=== PATIENT | male | born 1985 | race Caucasian/White ===

== ENCOUNTER 2016-07-15 14:36 | Emergency (ER) | payer BC, OTHER ==
[2016-07-15] MEDS ORDERED: SODIUM CHLORIDE 0.9% 1,000 ML IV STA (16:15)
[2016-07-15] MEDS ORDERED: MAG HYDROX/AL HYDROX/SIMETH 30 ML, HYOSCYAMINE ELIXIR 10 ML, CIMETIDINE HCL 300 MG PO STA ×3 (16:15)
[2016-07-15] MEDS ORDERED: ONDANSETRON 4 MG/2 ML VIAL IVP STA (16:15)
[2016-07-15] MEDS ORDERED: PANTOPRAZOLE 40 MG/10 ML VIAL IVP STA (16:15)
--- NOTE | 2016-07-15 16:41 | ED ---
Nausea/Vomiting/Diarrhea HPI - General Chief complaint: Nausea/Vomiting/Diarrhea Stated complaint: acid reflux/chest pain Time Seen by Provider: 07/15/16 16:08 Source: patient, RN notes reviewed Mode of arrival: ambulatory Limitations: no limitations - History of Present Illness Initial comments: 30-year-old male presents emergency Department with chief complaint of nausea vomiting heartburn, chest pain. Patient states that over the last day or so that he's had this pain does not seem to be worsened by eating. He has had approximately 5-6 episodes of emesis. Denies any coffee-ground emesis or hematemesis. Denies any fevers or chills. Denies any shortness of breath denies any muscular chest pain no cardiac history. Patient is diabetic and states he checked his blood sugar today was 336. Patient denies any dysuria, hematuria. Patient denies any change in bowel habits. He states he normally has some loose stools which has not changed. He has no history of abdominal surgeries. Patient states that he feels that he has heartburn has tried some Prevacid, Tums with minimal relief. - Related Data Home Medications Medication Instructions Recorded Confirmed Insulin Aspart (For Pump) [NovoLOG See Protocol SQ-PUMP CONTINUOUS 07/15/1606/26 (For Pump)] Previous Rx's Medication Instructions Recorded Omeprazole 40 mg PO DAILY #30 capsule. 07/15/16 Ondansetron Odt [Zofran Odt] 4 mg PO Q8HR PRN #10 tab 07/15/16 Allergies Allergy/AdvReac Type Severity Reaction Status Date / Time No Known Allergies Allergy Verified 07/15/16 16:21 Review of Systems ROS Statement: Those systems with pertinent positive or pertinent negative responses have been documented in the HPI. ROS Other: All systems not noted in ROS Statement are negative. Past Medical History Past Medical History: Diabetes Mellitus Additional Past Medical History / Comment(s): insulin pump History of Any Multi-Drug Resistant Organisms: None Reported Past Surgical History: Hernia Repair Past Psychological History: No Psychological Hx Reported Smoking Status: Current every day smoker Past Alcohol Use History: Heavy Past Drug Use History: None Reported General Exam Limitations: no limitations General appearance: alert, in no apparent distress Neck exam: Present: normal inspection. Absent: tenderness, meningismus, lymphadenopathy Respiratory exam: Present: normal lung sounds bilaterally. Absent: respiratory distress, wheezes, rales, rhonchi, stridor, chest wall tenderness Cardiovascular Exam: Present: regular rate, normal rhythm, normal heart sounds. Absent: systolic murmur, diastolic murmur, rubs, gallop, clicks GI/Abdominal exam: Present: soft, tenderness (Mild epigastric), normal bowel sounds. Absent: distended, guarding, rebound, rigid Course Vital Signs 07/15/16 07/15/16 15:01 18:22 Temperature 98.4 F 97.3 F L Pulse Rate 106 H 94 Respiratory 18 16 Rate Blood Pressure 181/64 136/83 O2 Sat by Pulse 98 97 Oximetry Medical Decision Making - Medical Decision Making 30-year-old male presents emergency Department for chest wall pain, mild abdominal pain nausea vomiting. Patient does have asked him positive and ketones though he is non-acidotic at this time. Patient has mild dehydration which she was hydrated here. Patient does feel improved after GI cocktail, Zofran. Patient most likely has gastritis secondary to dietary reasons. Patient started on omeprazole once daily and redischarged with Zofran at this time. Patient will recheck blood sugar at home and follow up with primary care physician. - Lab Data Result diagrams: 07/15/16 16:34 07/15/16 16:34 Lab Results 07/15/16 07/15/16 07/15/16 Range/Units 16:34 16:34 16:34 WBC 9.6 (3.8-10.6) k/uL RBC 5.15 (4.30-5.90) m/uL Hgb 15.9 (13.0-17.5) gm/dL Hct 44.9 (39.0-53.0) % MCV 87.2 (80.0-100.0) fL MCH 30.9 (25.0-35.0) pg MCHC 35.4 (31.0-37.0) g/dL RDW 13.1 (11.5-15.5) % Plt Count 162 (150-450) k/uL Neutrophils % 75 % Lymphocytes % 17 % Monocytes % 5 % Eosinophils % 2 % Basophils % 1 % Neutrophils # 7.2 (1.3-7.7) k/uL Lymphocytes # 1.6 (1.0-4.8) k/uL Monocytes # 0.5 (0-1.0) k/uL Eosinophils # 0.2 (0-0.7) k/uL Basophils # 0.1 (0-0.2) k/uL Sodium 133 L (137-145) mmol/L Potassium 4.1 (3.5-5.1) mmol/L Chloride 89 L (98-107) mmol/L Carbon Dioxide 33 H (22-30) mmol/L Anion Gap 11 mmol/L BUN 22 H (9-20) mg/dL Creatinine 1.07 (0.66-1.25) mg/dL Est GFR (MDRD) Af Amer >60 (>60 ml/min/1.73 sqM) Est GFR (MDRD) Non-Af >60 (>60 ml/min/1.73 sqM) Glucose 316 H (74-99) mg/dL Calcium 9.2 (8.4-10.2) mg/dL Total Bilirubin 2.5 H (0.2-1.3) mg/dL AST 23 (17-59) U/L ALT 25 (21-72) U/L Alkaline Phosphatase 109 (38-126) U/L Troponin I <0.012 (0.000-0.034) ng/mL Total Protein 6.8 (6.3-8.2) g/dL Albumin 4.0 (3.5-5.0) g/dL Amylase 47 (30-110) U/L Lipase 36 (23-300) U/L Urine Color Urine Appearance (Clear) Urine pH (5.0-8.0) Ur Specific [place] (1.001-1.035) Urine Protein (Negative) Urine Glucose (UA) (Negative) Urine Ketones (Negative) Urine Blood (Negative) Urine Nitrite (Negative) Urine Bilirubin (Negative) Urine Urobilinogen (<2.0) mg/dL Ur Leukocyte Esterase (Negative) Urine RBC (0-5) /hpf Urine WBC (0-5) /hpf Ur Squamous Epith Cells (0-4) /hpf Amorphous Sediment (None) /hpf Hyaline Casts (0-2) /lpf Urine Mucus (None) /hpf Acetone, Qual Positive (Negative) 07/15/16 Range/Units 17:37 WBC (3.8-10.6) k/uL RBC (4.30-5.90) m/uL Hgb (13.0-17.5) gm/dL Hct (39.0-53.0) % MCV (80.0-100.0) fL MCH (25.0-35.0) pg MCHC (31.0-37.0) g/dL RDW (11.5-15.5) % Plt Count (150-450) k/uL Neutrophils % % Lymphocytes % % Monocytes % % Eosinophils % % Basophils % % Neutrophils # (1.3-7.7) k/uL Lymphocytes # (1.0-4.8) k/uL Monocytes # (0-1.0) k/uL Eosinophils # (0-0.7) k/uL Basophils # (0-0.2) k/uL Sodium (137-145) mmol/L Potassium (3.5-5.1) mmol/L Chloride (98-107) mmol/L Carbon Dioxide (22-30) mmol/L Anion Gap mmol/L BUN (9-20) mg/dL Creatinine (0.66-1.25) mg/dL Est GFR (MDRD) Af Amer (>60 ml/min/1.73 sqM) Est GFR (MDRD) Non-Af (>60 ml/min/1.73 sqM) Glucose (74-99) mg/dL Calcium (8.4-10.2) mg/dL Total Bilirubin (0.2-1.3) mg/dL AST (17-59) U/L ALT (21-72) U/L Alkaline Phosphatase (38-126) U/L Troponin I (0.000-0.034) ng/mL Total Protein (6.3-8.2) g/dL Albumin (3.5-5.0) g/dL Amylase (30-110) U/L Lipase (23-300) U/L Urine Color Yellow Urine Appearance Clear (Clear) Urine pH 6.0 (5.0-8.0) Ur Specific [place] 1.017 (1.001-1.035) Urine Protein 2+ H (Negative) Urine Glucose (UA) 4+ H (Negative) Urine Ketones 2+ H (Negative) Urine Blood Small H (Negative) Urine Nitrite Negative (Negative) Urine Bilirubin Negative (Negative) Urine Urobilinogen 2.0 (<2.0) mg/dL Ur Leukocyte Esterase Negative (Negative) Urine RBC 1 (0-5) /hpf Urine WBC 4 (0-5) /hpf Ur Squamous Epith Cells <1 (0-4) /hpf Amorphous Sediment Rare H (None) /hpf Hyaline Casts 10 H (0-2) /lpf Urine Mucus Rare H (None) /hpf Acetone, Qual (Negative) 07/15/16 17:44 EKG performed at 17:39 normal sinus rhythm with a rate of 83 IL interval 144 QRS duration 86 QT/QTC 364/427 Disposition Clinical Impression: Dehydration, Gastritis Disposition: HOME SELF-CARE Condition: Stable Instructions: Acute Nausea and Vomiting (ED), Gastritis (ED) Additional Instructions: Please return to the Emergency Department if symptoms worsen or any other concerns. Prescriptions: Omeprazole 40 mg PO DAILY #30 capsule. Ondansetron Odt [Zofran Odt] 4 mg PO Q8HR PRN #10 tab PRN Reason: Nausea Referrals: Sahra Hurtado MD [Primary Care Provider] - 1-2 days Time of Disposition: 18:39
[2016-07-15 16:47] LABS: Basophils # (A) 0.1 k/uL (0-0.2); Basophils % (A) 1 %; CH 32.1; Eosinophils # (A) 0.2 k/uL (0-0.7); Eosinophils % (A) 2 %; HCT 44.9 % (39.0-53.0); HDW 3.04; HGB 15.9 gm/dL (13.0-17.5); Luc # (Auto) 0.11; Luc % (Auto) 1; Lymphocytes # (A) 1.6 k/uL (1.0-4.8); Lymphocytes % (A) 17 %; MCH 30.9 pg (25.0-35.0); MCHC 35.4 g/dL (31.0-37.0); MCV 87.2 fL (80.0-100.0); Mean Platelet Volume 8.4; Monocytes # (A) 0.5 k/uL (0-1.0); Monocytes % (A) 5 %; Neutrophils # (A) 7.2 k/uL (1.3-7.7); Neutrophils % (A) 75 %; RBC 5.15 m/uL (4.30-5.90); RDW 13.1 % (11.5-15.5); WBC 9.6 k/uL (3.8-10.6); WBC (Perox) 9.67
[2016-07-15 17:14] LABS: ALT 25 U/L (21-72); AST 23 U/L (17-59); Alkaline Phosphatase 109 U/L (38-126); Amylase 47 U/L (30-110); Anion Gap 11 mmol/L; Blood Urea Nitrogen 22 mg/dL (9-20); Calcium 9.2 mg/dL (8.4-10.2); Carbon Dioxide 33 mmol/L (22-30); Chloride 89 mmol/L (98-107); Glucose 316 mg/dL (74-99); Non-African American GFR(MDRD) >60 (>60 ml/min/1.73 sqM); Potassium 4.1 mmol/L (3.5-5.1); Sodium 133 mmol/L (137-145); Total Bilirubin 2.5 mg/dL (0.2-1.3); Total Protein 6.8 g/dL (6.3-8.2)
--- NOTE | 2016-07-15 17:19 | XR ---
EXAMINATION TYPE: XR chest 2V DATE OF EXAM: 07/15/2016 COMPARISON: NONE HISTORY: Chest pain TECHNIQUE: Frontal and lateral views of the chest are obtained. FINDINGS: Heart and mediastinum are normal. Lungs are clear. Diaphragm is normal. Bony thorax is int act. IMPRESSION: Normal chest
--- NOTE | 2016-07-15 17:20 | XR ---
EXAMINATION TYPE: XR KUB DATE OF EXAM: 07/15/2016 COMPARISON: NONE HISTORY: Chest pain TECHNIQUE: 2 views FINDINGS: Bowel gas pattern is normal. There is no sign of intestinal obstruction or pneumoperitoneum . Fecal pattern is normal. Lung bases are clear. There are no pathologic calcifications over the kidn eys. IMPRESSION: Nonacute abdomen.
[2016-07-15] MEDS ORDERED: SODIUM CHLORIDE 0.9% 1,000 ML IV ONE (17:41)
[2016-07-15 18:09] LABS: Amorphous Sediment,Urine Rare /hpf; Appearance,Urine Clear (Clear); Bilirubin,Urine Negative (Negative); Glucose,Urine (UA) 4+ (Negative); Leukocyte Esterase,Urine Negative (Negative); Mucus,Urine Rare /hpf; Nitrite,Urine Negative (Negative); Particle Count 1908; Protein,Urine 2+ (Negative); RBC,Urine 1 /hpf (0-5); Specific Gravity,Urine 1.017 (1.001-1.035); Squamous Epithelial Cell,Urine <1 /hpf (0-4); UA Billing (MACRO vs. MICRO) MICRO; WBC,Urine 4 /hpf (0-5)
[2016-07-15 18:10] LABS: Ketones,Urine 2+ (Negative)
--- NOTE | 2016-07-15 18:10 | US ---
EXAMINATION TYPE: US abdomen limited DATE OF EXAM: 07/15/2016 COMPARISON: NONE CLINICAL HISTORY: Pain. Reflux, chest pain, vomiting. EXAM MEASUREMENTS: Liver Length: 16.5 cm Gallbladder Wall: 0.2 cm CBD: 0.2 cm Right Kidney: 10.3 x 4.1 x 5.1 cm Pancreas: Limited visualization due to fluid filled stomach and peristalsing bowel. Visualized porti ons wnl Liver: wnl Gallbladder: wnl Evidence for sonographic Stahl's sign: No CBD: wnl as visualized, distal portion obscured by bowel gas Right Kidney: No hydronephrosis or masses seen IMPRESSION: Normal exam. No gallstones or dilated ducts.
[2016-07-15 18:23] VITALS: BP 136/83; PULSE 94; RESP 16; TEMP 97.3
== END 2016-07-15 18:54 | disposition home or self-care (01) ==
LOC: EC 14:36
DX: E86.0 Dehydration (principal); K29.70 Gastritis, unspecified, without bleeding; R07.89 Other chest pain; E11.9 Type 2 diabetes mellitus without complications; F17.200 Nicotine dependence, unspecified, uncomplicated; Z79.4 Long term (current) use of insulin
CPT/HCPCS: 36415; 93005; 80053; 82150; 82009; 83690; 84484; 85025; 81001; 71020; 74000; 76705; 99284; 96374; 96375; 96361 ×2; J2405; C9113

== ENCOUNTER 2016-09-24 17:48 | Observation (INO) | payer BC ==
[2016-09-24] MEDS ORDERED: SODIUM CHLORIDE 0.9% 2,000 ML IV STA (18:02)
[2016-09-24] MEDS ORDERED: METOCLOPRAMIDE 5 MG/ML 2 ML VIAL IVP STA (18:02)
--- NOTE | 2016-09-24 18:26 | ED ---
Nausea/Vomiting/Diarrhea HPI - General Chief complaint: Nausea/Vomiting/Diarrhea Stated complaint: Diabetic reaction (DKA) Time Seen by Provider: 09/24/16 18:02 Source: patient, RN notes reviewed Mode of arrival: ambulatory Limitations: no limitations - History of Present Illness Initial comments: This a 30-year-old male presents emergency Department with chief complaint of nausea vomiting denies not feeling well. Patient states that he started vomiting around 2 AM on Friday morning. Patient states that he has continue felt very rundown and sick feeling. Patient states his blood sugars have been variable. Patient states that he went to [facility] and sent over here for further wet ablation concerns for possible DKA. Patient is stable diabetic insulin pump. Patient states that he has had no fevers or chills. Patient states she has extreme dry mouth and feeling slightly dizzy. He denies any chest pain or shortness of breath. - Related Data Home Medications Medication Instructions Recorded Confirmed Insulin Aspart (For Pump) [NovoLOG See Protocol SQ-PUMP CONTINUOUS 07/15/16 (For Pump)] Omeprazole 40 mg PO [id number] 09/24/16 09/24/16 Previous Rx's Medication Instructions Recorded Ondansetron Odt [Zofran Odt] 4 mg PO Q8HR PRN #10 tab 07/15/16 Allergies Allergy/AdvReac Type Severity Reaction Status Date / Time No Known Allergies Allergy Verified 09/24/16 17:54 Review of Systems ROS Statement: Those systems with pertinent positive or pertinent negative responses have been documented in the HPI. ROS Other: All systems not noted in ROS Statement are negative. Past Medical History Past Medical History: Diabetes Mellitus Additional Past Medical History / Comment(s): insulin pump History of Any Multi-Drug Resistant Organisms: None Reported Past Surgical History: Hernia Repair Past Psychological History: No Psychological Hx Reported Smoking Status: Current every day smoker Past Alcohol Use History: Daily, Heavy Past Drug Use History: None Reported General Exam Limitations: no limitations General appearance: alert, in no apparent distress Head exam: Present: atraumatic, normocephalic, normal inspection Eye exam: Present: normal appearance, PERRL, EOMI. Absent: scleral icterus, conjunctival injection, periorbital swelling ENT exam: Present: normal exam, normal oropharynx, mucous membranes moist Neck exam: Present: normal inspection. Absent: tenderness, meningismus, lymphadenopathy Respiratory exam: Present: normal lung sounds bilaterally. Absent: respiratory distress, wheezes, rales, rhonchi, stridor Cardiovascular Exam: Present: normal rhythm, tachycardia, normal heart sounds. Absent: systolic murmur, diastolic murmur, rubs, gallop, clicks GI/Abdominal exam: Present: soft, normal bowel sounds. Absent: distended, tenderness, guarding, rebound, rigid Neurological exam: Present: alert, oriented X3, CN II-XII intact Skin exam: Present: warm, dry, intact, normal color. Absent: rash Course Vital Signs 09/24/16 17:50 Temperature 98.3 F Pulse Rate 103 H Respiratory 18 Rate Blood Pressure 108/71 O2 Sat by Pulse 97 Oximetry Medical Decision Making - Lab Data Result diagrams: 09/24/16 18:34 09/24/16 18:34 Lab Results 09/24/16 09/24/16 09/24/16 Range/Units 18:34 18:34 18:34 WBC 9.3 (3.8-10.6) k/uL RBC 4.74 (4.30-5.90) m/uL Hgb 14.7 (13.0-17.5) gm/dL Hct 39.1 (39.0-53.0) % MCV 82.5 (80.0-100.0) fL MCH 31.0 (25.0-35.0) pg MCHC 37.6 H (31.0-37.0) g/dL RDW 12.7 (11.5-15.5) % Plt Count 157 (150-450) k/uL Neutrophils % 70 % Lymphocytes % 21 % Monocytes % 5 % Eosinophils % 2 % Basophils % 0 % Neutrophils # 6.5 (1.3-7.7) k/uL Lymphocytes # 1.9 (1.0-4.8) k/uL Monocytes # 0.5 (0-1.0) k/uL Eosinophils # 0.2 (0-0.7) k/uL Basophils # 0.0 (0-0.2) k/uL Hyperchromasia Slight VBG pH (7.31-7.41) VBG pCO2 (37-51) mmHg VBG HCO3 (24-28) mmol/L Sodium 134 L (137-145) mmol/L Potassium 3.2 L (3.5-5.1) mmol/L Chloride 88 L (98-107) mmol/L Carbon Dioxide 34 H (22-30) mmol/L Anion Gap 12 mmol/L BUN 26 H (9-20) mg/dL Creatinine 1.10 (0.66-1.25) mg/dL Est GFR (MDRD) Af Amer >60 (>60 ml/min/1.73 sqM) Est GFR (MDRD) Non-Af >60 (>60 ml/min/1.73 sqM) Glucose 213 H (74-99) mg/dL Calcium 8.8 (8.4-10.2) mg/dL Total Bilirubin 1.0 (0.2-1.3) mg/dL AST 34 (17-59) U/L ALT 36 (21-72) U/L Alkaline Phosphatase 114 (38-126) U/L Total Protein 6.3 (6.3-8.2) g/dL Albumin 3.6 (3.5-5.0) g/dL Amylase 39 (30-110) U/L Lipase 33 (23-300) U/L Urine Color Yellow Urine Appearance Clear (Clear) Urine pH 6.5 (5.0-8.0) Ur Specific [place] 1.016 (1.001-1.035) Urine Protein 4+ H (Negative) Urine Glucose (UA) 4+ H (Negative) Urine Ketones 3+ H (Negative) Urine Blood Moderate H (Negative) Urine Nitrite Negative (Negative) Urine Bilirubin 1+ H (Negative) Urine Urobilinogen 2.0 (<2.0) mg/dL Ur Leukocyte Esterase Negative (Negative) Urine RBC 5 (0-5) /hpf Urine WBC 3 (0-5) /hpf Hyaline Casts 17 H (0-2) /lpf Urine Mucus Rare H (None) /hpf Urine Sperm Rare (None) /hpf Acetone, Qual Positive (Negative) 09/24/16 Range/Units 19:00 WBC (3.8-10.6) k/uL RBC (4.30-5.90) m/uL Hgb (13.0-17.5) gm/dL Hct (39.0-53.0) % MCV (80.0-100.0) fL MCH (25.0-35.0) pg MCHC (31.0-37.0) g/dL RDW (11.5-15.5) % Plt Count (150-450) k/uL Neutrophils % % Lymphocytes % % Monocytes % % Eosinophils % % Basophils % % Neutrophils # (1.3-7.7) k/uL Lymphocytes # (1.0-4.8) k/uL Monocytes # (0-1.0) k/uL Eosinophils # (0-0.7) k/uL Basophils # (0-0.2) k/uL Hyperchromasia VBG pH 7.65 H* (7.31-7.41) VBG pCO2 27 L (37-51) mmHg VBG HCO3 30 H (24-28) mmol/L Sodium (137-145) mmol/L Potassium (3.5-5.1) mmol/L Chloride (98-107) mmol/L Carbon Dioxide (22-30) mmol/L Anion Gap mmol/L BUN (9-20) mg/dL Creatinine (0.66-1.25) mg/dL Est GFR (MDRD) Af Amer (>60 ml/min/1.73 sqM) Est GFR (MDRD) Non-Af (>60 ml/min/1.73 sqM) Glucose (74-99) mg/dL Calcium (8.4-10.2) mg/dL Total Bilirubin (0.2-1.3) mg/dL AST (17-59) U/L ALT (21-72) U/L Alkaline Phosphatase (38-126) U/L Total Protein (6.3-8.2) g/dL Albumin (3.5-5.0) g/dL Amylase (30-110) U/L Lipase (23-300) U/L Urine Color Urine Appearance (Clear) Urine pH (5.0-8.0) Ur Specific [place] (1.001-1.035) Urine Protein (Negative) Urine Glucose (UA) (Negative) Urine Ketones (Negative) Urine Blood (Negative) Urine Nitrite (Negative) Urine Bilirubin (Negative) Urine Urobilinogen (<2.0) mg/dL Ur Leukocyte Esterase (Negative) Urine RBC (0-5) /hpf Urine WBC (0-5) /hpf Hyaline Casts (0-2) /lpf Urine Mucus (None) /hpf Urine Sperm (None) /hpf Acetone, Qual (Negative) Disposition Clinical Impression: Metabolic alkalosis, Nausea & vomiting, Hypokalemia, Labile blood glucose Disposition: ADMITTED IP TO THIS HOSP Condition: Fair Referrals: Sahra Hurtado MD [Primary Care Provider] - 1-2 days
[2016-09-24 18:51] LABS: Appearance,Urine Clear (Clear); Bilirubin,Urine 1+ (Negative); Glucose,Urine (UA) 4+ (Negative); Leukocyte Esterase,Urine Negative (Negative); Mucus,Urine Rare /hpf; Nitrite,Urine Negative (Negative); PH, Urine 6.5 (5.0-8.0); Particle Count 3631; Protein,Urine 4+ (Negative); RBC,Urine 5 /hpf (0-5); Specific Gravity,Urine 1.016 (1.001-1.035); Sperm,Urine Rare /hpf; UA Billing (MACRO vs. MICRO) MICRO; WBC,Urine 3 /hpf (0-5)
[2016-09-24 18:52] LABS: Basophils % (A) 0 %; CH 31.4; CHCM 38.1; Eosinophils # (A) 0.2 k/uL (0-0.7); Eosinophils % (A) 2 %; HCT 39.1 % (39.0-53.0); HDW 3.06; HGB 14.7 gm/dL (13.0-17.5); Hyperchromasia Slight; Luc # (Auto) 0.16; Luc % (Auto) 2; Lymphocytes # (A) 1.9 k/uL (1.0-4.8); Lymphocytes % (A) 21 %; MCV 82.5 fL (80.0-100.0); Mean Platelet Volume 8.4; Monocytes # (A) 0.5 k/uL (0-1.0); Monocytes % (A) 5 %; Neutrophils # (A) 6.5 k/uL (1.3-7.7); Neutrophils % (A) 70 %; RBC 4.74 m/uL (4.30-5.90); RDW 12.7 % (11.5-15.5); WBC 9.3 k/uL (3.8-10.6); WBC (Perox) 9.45
[2016-09-24 18:54] LABS: MCHC 37.6 g/dL (31.0-37.0)
[2016-09-24 19:01] LABS: Ketones,Urine 3+ (Negative)
[2016-09-24 19:06] LABS: ALT 36 U/L (21-72); AST 34 U/L (17-59); Alkaline Phosphatase 114 U/L (38-126); Amylase 39 U/L (30-110); Anion Gap 12 mmol/L; Blood Urea Nitrogen 26 mg/dL (9-20); Calcium 8.8 mg/dL (8.4-10.2); Carbon Dioxide 34 mmol/L (22-30); Chloride 88 mmol/L (98-107); Glucose 213 mg/dL (74-99); Non-African American GFR(MDRD) >60 (>60 ml/min/1.73 sqM); Potassium 3.2 mmol/L (3.5-5.1); Sodium 134 mmol/L (137-145); Total Protein 6.3 g/dL (6.3-8.2)
[2016-09-24 19:24] LABS: VBG PH 7.65 (7.31-7.41)
[2016-09-24] MEDS ORDERED: POTASSIUM CHLORIDE ER 20 MEQ TAB.ER PO STA (19:53)
[2016-09-24] MEDS ORDERED: ONDANSETRON 4 MG/2 ML VIAL IVP PRN (19:54)
[2016-09-24] MEDS ORDERED: NALOXONE 0.4 MG/ML 1 ML VIAL IV PRN (19:54)
[2016-09-24 20:21] LABS: Acetaminophen <10.0 ug/mL; Salicylate <1.0 mg/dL
[2016-09-24] MEDS: SODIUM CHLORIDE 0.9% 1,000 ML IV SCH (21:05)
[2016-09-24 21:44] LABS: Glucose,Whole Blood 169 mg/dL (75-99)
[2016-09-24 22:15] LABS: Hemoglobin A1C 10.3 % (4.2-6.1)
[2016-09-25] MEDS: INSULIN LISPRO (humaLOG) 300 UNIT/3 ML VIAL SQ SCH ×3 (00:17→12:53)
[2016-09-25] MEDS ORDERED: SODIUM CHLORIDE 0.65% NASAL SPRAY 44 ML BTL NASAL PRN (01:03)
[2016-09-25] MEDS: SODIUM CHLORIDE 0.9% 1,000 ML IV SCH (06:11)
[2016-09-25 07:29] LABS: Glucose,Whole Blood 113 mg/dL (75-99)
[2016-09-25 07:54] VITALS: BP 124/68; PULSE 98; RESP 16; TEMP 96.7
[2016-09-25 11:04] VITALS: BMI 17.2
[2016-09-25 12:01] LABS: Glucose,Whole Blood 144 mg/dL (75-99)
[2016-09-25 12:33] LABS: ALT 38 U/L (21-72); AST 35 U/L (17-59); Alkaline Phosphatase 85 U/L (38-126); Anion Gap 8 mmol/L; Blood Urea Nitrogen 14 mg/dL (9-20); Calcium 8.6 mg/dL (8.4-10.2); Carbon Dioxide 32 mmol/L (22-30); Chloride 99 mmol/L (98-107); Glucose 147 mg/dL (74-99); Non-African American GFR(MDRD) >60 (>60 ml/min/1.73 sqM); Potassium 3.4 mmol/L (3.5-5.1); Sodium 139 mmol/L (137-145); Total Bilirubin 0.9 mg/dL (0.2-1.3); Total Protein 5.4 g/dL (6.3-8.2)
[2016-09-25] MEDS ORDERED: POTASSIUM CHLORIDE ER 20 MEQ TAB.ER PO STA (13:28)
--- NOTE | 2016-09-25 18:23 | HP ---
DATE OF ADMISSION: 09/25/16 HISTORY AND PHYSICAL/DISCHARGE SUMMARY CHIEF COMPLAINT: Nausea and vomiting. HISTORY OF PRESENT ILLNESS: This 30-year-old gentleman with past medical history of multiple medical problems including diabetes mellitus Type 1, history of insulin pump, history of nicotine dependence being followed by no primary care physician in the outpatient setting was complaining of vomiting. The patient presented. The patient had some nausea also. The patient presented to urgent care center and DKA was suspected. The patient was sent to [facility] for further evaluation and treatment. There is no history of any fever, rigors or chills. No history of headache, loss of consciousness or seizures. Venous blood gases showed actually ABG. pH 7.6. Sodium 130, potassium 3.2, CO2 12 and the urine ketones were positive. CO2 34, anion gap 12. Past medical history of diabetes Type 1 on insulin pump. Mediations prior to admission include: Insulin pump. ALLERGIES: None. FAMILY HISTORY: No history of heart disease or strokes in the family. SOCIAL HISTORY: History of occasional alcohol intake. History of smoking. REVIEW OF SYSTEMS: HEENT: No diminished vision. No diminished hearing. Cardiovascular system: No angina or palpitations. Respiratory: No cough, hemoptysis. GI: As mentioned earlier. : No dysuria. Nervous system: No numbness, weakness. Allergy/Immunology: No asthma or hayfever. Musculoskeletal: As mentioned earlier. Hematology/oncology: No history of anemia. Endocrine: As mentioned earlier. Constitutional: As mentioned earlier. Dermatology: Negative. Rheumatology: Negative. Psychiatry: As mentioned earlier. PHYSICAL EXAMINATION: The patient is alert, oriented times three. Pulse 90. Blood pressure 100/68. Respiratory rate 16, temperature 96.7. Pulse ox 99% on room air. HEENT: Conjunctivae normal. NECK: No JVD. Cardiovascular: S1, S2. Respiratory: Breath sounds diminished at the bases. A few scattered rhonchi and no crackles. Abdomen is soft, nontender. No mass palpable. Legs: No edema. No swelling. Nervous system: Higher functions as mentioned earlier. Moves all four limbs. No focal deficits. Lymphatics: No lymph nodes palpable in the neck, axilla or groin. Skin: No ulcer, rash or bleeding. LABS: CBC within normal limits. Sodium 134, potassium 3.2. Other labs noted. FINAL DIAGNOSES: 1. Vomiting, possible acute gastritis. 2. Metabolic alkalosis secondary to vomiting. 3. Diabetic ketoacidosis unlikely. 4. Diabetes, Type 1. 5. History of nicotine dependence. 6. History of ETOH. RECOMMENDATIONS AND DISCUSSION: In this 30 -year-old gentleman who presented with multiple complex medical issues, we will monitor the patient closely. Continue the current medications. Continue symptomatic treatment. The patient improved significantly with IV fluids. I recommend the patient be discharged with the continued home dose of insulin pump and continue to monitor. Repeat labs with Dr. Hurtado in the outpatient setting. See orders for further details. Prognosis guarded. MTDD
== END 2016-09-25 14:11 | disposition home or self-care (01) ==
LOC: EC 17:48 → 4MS4W 20:55 → INTOOBSV 20:55
PROVIDERS: ADMIT Hospitalist; ATTEND Hospitalist
DX: R11.2 Nausea with vomiting, unspecified (principal); E87.3 Alkalosis; E10.9 Type 1 diabetes mellitus without complications; Z96.41 Presence of insulin pump (external) (internal); Z79.4 Long term (current) use of insulin; Z79.899 Other long term (current) drug therapy; E87.6 Hypokalemia; F17.200 Nicotine dependence, unspecified, uncomplicated
CPT/HCPCS: 99284 ×2; 96374 ×2; 96361 ×3; 36415; 82436; 80053 ×2; 82088; 82150; 83036; 82803; 84244; 82009; 83690; 85025; 81001; 80306; 83520 ×2; G0378 ×2; J2765

== ENCOUNTER → 2017-05-02 | Outpatient (CLI) | payer MEDICAID ==
[2017-05-02 09:52] LABS: Albumin 2.7 g/dL (3.5-5.0); Calcium 8.4 mg/dL (8.4-10.2); Total Bilirubin 0.9 mg/dL (0.2-1.3); Total Protein 5.3 g/dL (6.3-8.2)
== END | disposition home or self-care (01) ==
LOC: LABWHC1 09:18
PROVIDERS: ATTEND Internal Medicine Endocrinology, Diabetes & Metabolism
DX: E10.65 Type 1 diabetes mellitus with hyperglycemia (principal)
CPT/HCPCS: 36415; 80053; 80061; 82043; 82570

== ENCOUNTER 2017-05-28 17:12 | Observation (INO) | payer MEDICAID ==
[2017-05-28 17:55] LABS: Glucose,Whole Blood 112 mg/dL (75-99)
[2017-05-28] MEDS ORDERED: SODIUM CHLORIDE 0.9% 500 ML IV ONE (19:46)
--- NOTE | 2017-05-28 19:52 | ED ---
Headache HPI - General Chief Complaint: Headache Stated Complaint: POSS CVA, DIZZINESS, ARM AND FACE NUMBNESS Time Seen by Provider: 05/28/17 19:30 Mode of arrival: ambulatory Limitations: no limitations - History of Present Illness Initial Comments: 31-year-old male patient presents to the emergency department today with complaints of left eye pressure, right-sided facial numbness and right arm numbness. Patient states that over the last couple of months he has been evaluated for left sided a retinal bleed. States he did have laser surgery which appeared the bleeding but he continued to have problems. Patient states he is evaluated by beam saw operator Dr. Renteria in [place], she believes the eye symptoms and pain is more neurological rather than ophthalmic. Patient states that he does have an MRI scheduled for next month however had onset of the facial numbness and arm numbness today so presented here for further evaluation. Patient states that the numbness lasted approximately 30 minutes but did resolve. States he is still having some mild blurred vision to the left eye and pressure in the left eye. States that he has a mild headache as well. With these symptoms patient has been experiencing dizziness and is being treated for vertigo by his primary care physician. Patient has a past medical history significant for type 1 diabetes and renal insufficiency. Patient denies any recent rash, fever, chills, shortness breath, chest pain, abdominal pain, nausea, vomiting, diarrhea, constipation, back pain, weakness, hematuria, dysuria, urinary urgency, urinary frequency, or any other complaints. - Related Data Home Medications Medication Instructions Recorded Confirmed Insulin Aspart [NovoLOG See Protocol SQ AC-TID 01/28/17 05/28/17 (formulary)] Insulin Glargine,Hum.rec.anlog 8 units SQ HS 01/28/17 05/28/17 [Toujeo Solostar] Insulin Aspart [NovoLOG 1 dose SQ AC-TID 05/28/17 05/28/17 (formulary)] Meclizine [Antivert] 25 mg PO HS 05/28/17 05/28/17 Allergies Allergy/AdvReac Type Severity Reaction Status Date / Time No Known Allergies Allergy Verified 05/28/17 21:52 Review of Systems ROS Statement: Those systems with pertinent positive or pertinent negative responses have been documented in the HPI. ROS Other: All systems not noted in ROS Statement are negative. Past Medical History Past Medical History: Diabetes Mellitus Additional Past Medical History / Comment(s): IDDM type I, DKA History of Any Multi-Drug Resistant Organisms: None Reported Past Surgical History: Hernia Repair Additional Past Surgical History / Comment(s): Inguinal hernia repair Past Anesthesia/Blood Transfusion Reactions: No Reported Reaction Past Psychological History: No Psychological Hx Reported Smoking Status: Current every day smoker Past Alcohol Use History: None Reported Past Drug Use History: None Reported - Past Family History Father Family Medical History: No Reported History Additional Family Medical History / Comment(s): Father is healthy Mother Family Medical History: No Reported History Additional Family Medical History / Comment(s): Mother is healthy. General Exam Limitations: no limitations General appearance: alert, in no apparent distress, other (This is a well- developed, well-nourished adult female patient in no acute distress. Vital signs upon presentation are temperature 98.1F, pulse 87, respirations 20, blood pressure 116/77, pulse ox 100% on room air.) Eye exam: Present: normal appearance, PERRL, EOMI. Absent: scleral icterus, conjunctival injection, periorbital swelling ENT exam: Present: normal exam, normal oropharynx, mucous membranes moist Respiratory exam: Present: normal lung sounds bilaterally. Absent: respiratory distress, wheezes, rales, rhonchi, stridor Cardiovascular Exam: Present: regular rate, normal rhythm, normal heart sounds. Absent: systolic murmur, diastolic murmur, rubs, gallop, clicks Extremities exam: Present: normal inspection, full ROM, normal capillary refill , other (Skin to the bilateral production is pink, warm, and dry. Cap refills less than 3 seconds. Radial pulses are 2+ and equal bilateral.). Absent: tenderness, pedal edema, joint swelling, calf tenderness Neurological exam: Present: alert, oriented X3, CN II-XII intact Expanded Speech: Present: fluid speech Cranial nerves: EOM's Intact: Normal, Tongue Deviation: Normal, Nystagmus: Normal, Facial Sensation: Normal, Facial Palsy with Forehead Movement: Normal Motor strength exam: RUE: 5, LUE: 5, RLE: 5, LLE: 5 Eye Response: (4) open spontaneously Motor Response: (6) obeys commands Verbal Response: (5) oriented [place] Total: 15 Psychiatric exam: Present: normal affect, normal mood Skin exam: Present: warm, dry, intact, normal color. Absent: rash Course Vital Signs 05/28/17 05/28/17 05/28/17 17:38 21:29 23:25 Temperature 98.1 F Pulse Rate 87 97 87 Respiratory 20 18 18 Rate Blood Pressure 116/77 190/94 161/99 O2 Sat by Pulse 100 99 98 Oximetry 05/29/17 00:30 Temperature 98.8 F Pulse Rate 95 Respiratory 18 Rate Blood Pressure 163/100 O2 Sat by Pulse 98 Oximetry Medical Decision Making - Medical Decision Making 31-year-old male patient presents to the emergency department today for complaints of headache, left eye blurriness, right-sided facial numbness and right arm numbness. Physical examination was relatively unremarkable. Patient was neurologically intact. Numbness had resolved by time of presentation. Labs are performed and did show a hemoglobin of 10.3, sodium 136, BUN 34, creatinine 1.73. Patient does have a history of diabetes and renal insufficiency. CT of the brain was performed and did show a 1 cm area of low attenuation in the left cerebellum which could possibly be an intraparenchymal lesion or infarct of indeterminate age. I also did show possible left-sided mastoiditis, patient denies any ear pain, difficulty hearing, or mastoid tenderness. It is felt that this is not related to an acute mastoiditis. I did discuss the case with Dr. Vázquez who would like patient admitted to the hospital for neurological evaluation. - Lab Data Result diagrams: 05/28/17 19:55 05/28/17 19:55 Lab Results 05/28/17 05/28/17 05/28/17 Range/Units 17:46 19:55 19:55 WBC 8.5 (3.8-10.6) k/uL RBC 3.44 L (4.30-5.90) m/uL Hgb 10.3 L (13.0-17.5) gm/dL Hct 28.0 L (39.0-53.0) % MCV 81.4 (80.0-100.0) fL MCH 29.8 (25.0-35.0) pg MCHC 36.6 (31.0-37.0) g/dL RDW 13.5 (11.5-15.5) % Plt Count 138 L (150-450) k/uL Neutrophils % 77 % Lymphocytes % 15 % Monocytes % 3 % Eosinophils % 5 % Basophils % 0 % Neutrophils # 6.5 (1.3-7.7) k/uL Lymphocytes # 1.2 (1.0-4.8) k/uL Monocytes # 0.3 (0-1.0) k/uL Eosinophils # 0.4 (0-0.7) k/uL Basophils # 0.0 (0-0.2) k/uL Hyperchromasia Slight Sodium 136 L (137-145) mmol/L Potassium 4.5 (3.5-5.1) mmol/L Chloride 98 (98-107) mmol/L Carbon Dioxide 29 (22-30) mmol/L Anion Gap 9 mmol/L BUN 34 H (9-20) mg/dL Creatinine 1.73 H (0.66-1.25) mg/dL Est GFR (CKD-EPI)AfAm 60 (>60 ml/min/1.73 sqM) Est GFR (CKD-EPI)NonAf 52 (>60 ml/min/1.73 sqM) Glucose 165 H (74-99) mg/dL POC Glucose (mg/dL) 112 H (75-99) mg/dL POC Glu Lab Intern ID [facility] Calcium 9.2 (8.4-10.2) mg/dL Total Bilirubin 0.5 (0.2-1.3) mg/dL AST 43 (17-59) U/L ALT 45 (21-72) U/L Alkaline Phosphatase 128 H (38-126) U/L Total Protein 5.9 L (6.3-8.2) g/dL Albumin 3.2 L (3.5-5.0) g/dL - EKG Data -: EKG Interpreted by Ok EKG Comments: EKG obtained at 1748 shows normal sinus rhythm with a ventricular rate of 85,. Interval 136, QRS duration 82, QT 374, QTC 445. No evidence of ST elevation or depression. - Radiology Data Radiology results: report reviewed, image reviewed CT of the head is performed without contrast. Report was reviewed in its entirety. Impression by Dr. Weiner shows no acute intracranial hemorrhage or midline shift. Acute on chronic paranasal sinus disease is seen as detailed above. Nonspecific roughly 1 cm area of vague low attenuation the left cerebellum, differential includes intraparenchymal lesion as well as infarct of indeterminate age. Consider contrast enhanced MRI follow-up to further evaluate it does not really correlate with the patient stated symptoms. Other etiologies are not excluded. Possible left-sided mastoiditis, correlate clinically. Disposition Clinical Impression: Numbness on right side, Brain lesion, Blurred vision, left eye Disposition: ADMITTED IP TO THIS [facility] Condition: Serious Is patient prescribed a controlled substance at discharge?: No Decision to Admit Reason: Admit from EC Decision Date: 05/28/17 Decision Time: 21:34
[2017-05-28 20:16] LABS: Albumin 3.2 g/dL (3.5-5.0); Calcium 9.2 mg/dL (8.4-10.2); Potassium 4.5 mmol/L (3.5-5.1); Total Bilirubin 0.5 mg/dL (0.2-1.3); Total Protein 5.9 g/dL (6.3-8.2)
[2017-05-28 20:23] LABS: Basophils % (A) 0 %; Eosinophils # (A) 0.4 k/uL (0-0.7); Eosinophils % (A) 5 %; HGB 10.3 gm/dL (13.0-17.5); Hyperchromasia Slight; Lymphocytes # (A) 1.2 k/uL (1.0-4.8); Lymphocytes % (A) 15 %; MCH 29.8 pg (25.0-35.0); MCHC 36.6 g/dL (31.0-37.0); MCV 81.4 fL (80.0-100.0); Mean Platelet Volume 8.8; Monocytes # (A) 0.3 k/uL (0-1.0); Monocytes % (A) 3 %; Neutrophils # (A) 6.5 k/uL (1.3-7.7); Neutrophils % (A) 77 %; Platelet Count 138 k/uL (150-450); RBC 3.44 m/uL (4.30-5.90); RDW 13.5 % (11.5-15.5); WBC 8.5 k/uL (3.8-10.6)
--- NOTE | 2017-05-28 20:30 | CT ---
EXAMINATION TYPE: CT brain wo con DATE OF EXAM: 05/28/2017 COMPARISON: NONE HISTORY: DIZZINESS WITH LEFT SIDE FACIAL AND ARM NUMBNESS CT DLP: 1036 mGycm. Automated Exposure Control for Dose Reduction was Utilized. TECHNIQUE: CT scan of the head is performed without contrast. FINDINGS: There is no acute intracranial hemorrhage, mass effect, or midline shift identified. The ventricles and sulci are within normal limits in size. There is asymmetric vague area of low attenu ation left cerebellum axial image 10 otherwise lee-white matter differentiation is fairly well-maint ained. The globes are intact bilaterally. There is patchy opacification in the left frontal sinus. Th ere is hypoplastic right frontal sinus. There is patchy opacification ethmoid sinuses bilaterally. Th ere is some lobulated mucosal thickening in the bilateral maxillary sinuses. There is lobulated mucos al thickening anteriorly in right sphenoid sinus. There is small mucous retention cyst or polyp anter iorly in left sphenoid sinus. Patchy opacification left mastoid air cells is present. IMPRESSION: No acute intracranial hemorrhage or midline shift is seen. Acute on chronic paranasal si nus disease is seen as detailed above. Nonspecific roughly 1 cm area of vague low-attenuation left ce rebellum, differential includes intraparenchymal lesion as well as infarct indeterminate age. Conside r contrast-enhanced MRI follow-up to further evaluate as does not really correlate with patient's sta robi symptoms. Other etiologies are not excluded. Possible left-sided mastoiditis, correlate clinicall y.
[2017-05-28] MEDS ORDERED: NALOXONE 0.4 MG/ML 1 ML VIAL IV PRN (21:29)
[2017-05-28] MEDS ORDERED: INSULIN ASPART 100 UNIT/ML 1 ML 10 ML VIAL SQ STA (22:20)
[2017-05-28] MEDS ORDERED: INSULIN DETEMIR 100 UNIT/ML 10 ML VIAL SQ STA (22:23)
[2017-05-28 22:29] LABS: Glucose,Whole Blood 207 mg/dL (75-99)
[2017-05-29 02:27] VITALS: BMI 18.5
[2017-05-29 05:55] LABS: Glucose,Whole Blood 289 mg/dL (75-99)
[2017-05-29] MEDS: INSULIN ASPART 100 UNIT/ML 1 ML 10 ML VIAL SQ SCH ×5 (09:28→20:53)
[2017-05-29 12:02] LABS: Glucose,Whole Blood 211 mg/dL (75-99)
[2017-05-29] MEDS ORDERED: INSULIN ASPART 100 UNIT/ML 1 ML 10 ML VIAL SQ SCH (12:30)
--- NOTE | 2017-05-29 14:52 | MR ---
EXAMINATION TYPE: MR brain wo con DATE OF EXAM: 05/29/2017 2:32 PM COMPARISON: NONE HISTORY: cerebellar lesion Multiplanar and multispin-echo imaging of the brain was performed . The ventricles, basal cisterns and sulci overlying the cerebral convexities are within normal limits. There is no evidence for midline shift or mass effect. Acute intracranial hemorrhage or extra-axial collection is not evident. There are a few scattered nonspecific white matter foci of increased signal noted to small to appropr iately characterize. No acute edema is identified. Left-sided mastoiditis as well as chronic and acute paranasal sinusitis. IMPRESSION: 1. Nonspecific white matter changes. 2. No evidence for cerebellar lesion on this noncontrast study. 3. Left-sided mastoiditis as well as chronic and acute paranasal sinusitis.
[2017-05-29 16:32] LABS: Hemoglobin A1C 6.2 % (4.0-6.0)
[2017-05-29 16:46] LABS: Glucose,Whole Blood 207 mg/dL (75-99)
--- NOTE | 2017-05-29 19:55 | CONS ---
CONSULTATION DATE OF CONSULTATION: 05/29/2017 CHIEF COMPLAINT: Numbness and eye pain. HISTORY OF PRESENT ILLNESS: Mr. Hernandez is a pleasant 31-year-old, male who is being evaluated by the neurology service per the request of Dr. Vázquez for the above-mentioned complaints. The patient states that over the past 2 days, he has been having episodes of eye pain and numbness. Two days ago, he developed pain in his left eye along with some numbness in his right upper extremity. The eye pain lasted almost all day and the numbness lasted approximately 10 minutes. His symptoms resolved that night regarding the eye pain. Yesterday he developed similar eye pain involving the left eye and also noticed numbness in his right face. Again, those symptoms lasted a couple of hours and resolved spontaneously. In the emergency room, a CT scan of the brain was done which showed a questionable hypoattenuation involving the left cerebellum measuring approximately 1 cm. His CBC showed anemia with a hemoglobin of 10.3 and hematocrit of 28%. His comprehensive metabolic profile showed renal insufficiency with a BUN of 34 and creatinine of 1.73. The patient was told a few months ago that his renal function is abnormal. He has a long-standing history of diabetes that had not been well controlled until the past couple of months. He states that his hemoglobin A1c 3 months ago was 11.4. More recently, his hemoglobin A1c was 5.9, according to him. The patient was admitted for further workup and management. An MRI of the brain was just completed prior to my evaluation. The radiology report is still pending, but I did review the images, which showed no acute findings. Nonspecific white matter changes were seen. The patient denies any symptoms at the time of my evaluation. He has been ambulating with no difficulties. He does inform me that over the past couple of weeks, he has been having episodes of dizziness which he describes as an off-balance sensation that comes and goes. He denies any headache. PAST MEDICAL HISTORY: 1. Diabetes. 2. Chronic renal insufficiency. 3. History of hernia repair. SOCIAL HISTORY: The patient is a current everyday smoker. He denies any alcohol or drug use. FAMILY HISTORY: Noncontributory. HOME MEDICATIONS: Reviewed in the chart. ALLERGIES: NO KNOWN DRUG ALLERGIES. REVIEW OF SYSTEMS: CONSTITUTIONAL: Negative. EYES: As mentioned above. ENT: Negative. CARDIOVASCULAR: Negative. RESPIRATORY: Negative. NEUROLOGICAL: As mentioned above. GASTROINTESTINAL: Negative. GENITOURINARY: As mentioned above. ENDOCRINE: As mentioned above. PSYCHIATRIC: Negative. DERMATOLOGICAL: Negative. PHYSICAL EXAMINATION: Vital signs show a temperature of 98.4, pulse 92, respiration 14, blood pressure 141/86. GENERAL APPEARANCE: The patient is a thin male who appears to be in no acute distress. HEENT: Normocephalic, atraumatic. No facial asymmetry is seen. Extraocular muscles are intact. NECK: Supple with no masses felt. CARDIOVASCULAR: Regular rate and rhythm. ABDOMEN: Nontender, nondistended. Extremities showed no edema or clubbing. NEUROLOGICAL EXAMINATION: The patient is alert, aware and oriented x3. Speech and language are normal. Strength is full in all 4 extremities. Sensory exam was normal to light touch in all 4 extremities. No tremors or seizure-like activity is seen. No pronator drift is noticed. Dbpqhh-lqcu-xteqis testing showed no dysmetria. No facial asymmetry is seen on cranial nerve testing. IMPRESSION: 1. Recurrent numbness. 2. Nonspecific white matter changes on MRI of the brain. 3. Left eye pain. 4. Diabetes. 5. Tobacco dependence. RECOMMENDATION: The patient's MRI of the brain images were reviewed by me. The radiological report is still pending. I did not see any acute findings and no abnormalities were noticed in the cerebellar region. Nonspecific white matter changes were seen. I will wait for the official radiological report. The patient does have a long-standing history of uncontrolled diabetes, as mentioned above. He was found to have renal insufficiency, which is likely due to his diabetic history. I do recommend a nephrology consultation. Regarding his white matter changes, I will consider performing a lumbar puncture for CSF workup in the outpatient clinic. The patient will also need an ophthalmological evaluation, given his atypical recurrent eye pain. I do recommend anti-platelet therapy with aspirin 81 mg daily. I will order a carotid Doppler, EEG, fasting lipid panel and serum homocystine level. The patient was counseled on tobacco cessation. Continue the rest of your current workup and management. I will continue to follow with you. Further recommendations to follow. Thank you for allowing me to participate in the care of your patient. If you have any questions, please feel free to contact me. MMODL / IJN: [id number] /
--- NOTE | 2017-05-29 20:34 | HP ---
HISTORY AND PHYSICAL CHIEF COMPLAINTS: Headache and as well as a right-sided arm and leg numbness. HISTORY OF PRESENT ILLNESS: This 31-year-old gentleman with a past medical history of diabetes type 2, history of DKA, history of hernia repair, being followed by Dr. Hurtado in the outpatient setting was noted to have some visual difficulties. An MRI was scheduled outpatient, but subsequently patient had numbness of the right side of the face and as well as right side of the body and the patient came to [facility] and was admitted for further evaluation and treatment. CT scan showed 1 cm the left cerebellar mass noted. There is no history of any fever, rigors or chills. No history of headache, loss of consciousness or seizures at this time. PAST MEDICAL HISTORY: History of diabetes type 2, history of DKA. MEDICATIONS: Prior to admission include: 1. Antivert 25 mg q.h.s. 2. NovoLog t.i.d. and NovoLog protocol. 3. Lantus that is 8 units subcu q.h.s. ALLERGIES: None. FAMILY HISTORY: No history of heart disease or strokes family. SOCIAL HISTORY: History of smoking. Occasional alcohol intake. REVIEW OF SYSTEMS: ENT: Mentioned earlier. Cardiovascular: No angina or palpitations. Respiration no cough or hemoptysis. GI no nausea or vomiting. : No dysuria. NERVOUS SYSTEM: As mentioned earlier. Allergy/Immunology: No asthma or hayfever. Musculoskeletal as mentioned earlier. Hematology/Oncology: No history of anemia. Endocrine: As mentioned earlier. Constitutional: As mentioned earlier. Dermatology: Negative. Rheumatology: Negative. Psychiatric: as mentioned earlier. PHYSICAL EXAMINATION: Alert and oriented x2. Pulse 95. Blood pressure 130/70, respiration 16, temperature 98.4, pulse ox 98% on room air. HEENT: Conjunctivae normal. Neck: No jugular venous distention. Cardiovascular : Breath sounds diminished in the bases. No rhonchi. No crackles. ABDOMEN: Soft, nontender. No mass palpable. Legs no edema. No swelling. Nervous system: Higher functions as mentioned earlier. Cranial nerves 2 thru 12 grossly intact. No nystagmus. No diplopia. Moves all 4 limbs. Power is normal. No signs of cerebellar dysfunction. Lymphatics: No lymph nodes palpable in the neck, axillae or groin. SKIN: No ulcer, rash or bleeding. LABS: WBC 8.1, hemoglobin is 10.3, platelets 130. Sodium 136 and creatinine 1.73 and glucose 165. Labs are noted. ASSESSMENT: 1. Right-sided numbness of the face and leg, rule out transient ischemic attack. 2. Rule out left cerebellar lesion. 3. Diabetes type 1. 4. History of diabetic ketoacidosis. 5. Increased creatinine with chronic kidney disease stage 3. 6. Anemia. 7. History of hernia repair. 8. History of nicotine dependence. RECOMMENDATIONS AND DISCUSSION: In this 31-year-old gentleman who presented with multiple complex medical issues , we will monitor the patient closely. Continue the current medications. Continue symptomatic treatment. Will we will monitor the patient closely. MRI has been ordered. Follow up with Neurology. Neurovascular workup and neurology consultation. EEG has been ordered. The overall prognosis guarded because of the multiple complex medical issues and further recommendations to follow. We will also obtain an MRI with contrast also. Further recommendations to follow. See orders for details. MMODL / IJN: [id number] / MTDD
[2017-05-29 20:36] LABS: Glucose,Whole Blood 349 mg/dL (75-99)
[2017-05-29] MEDS ORDERED: INSULIN DETEMIR 100 UNIT/ML 10 ML VIAL SQ SCH ×2 (21:00)
[2017-05-29] MEDS ORDERED: MECLIZINE 25 MG TAB PO SCH (21:00)
[2017-05-30 05:13] LABS: Glucose,Whole Blood 303 mg/dL (75-99)
[2017-05-30] MEDS: INSULIN ASPART 100 UNIT/ML 1 ML 10 ML VIAL SQ SCH ×4 (05:25→12:27)
[2017-05-30 05:30] VITALS: TEMP 97.8
[2017-05-30 06:45] LABS: Basophils % (A) 0 %; Eosinophils # (A) 0.3 k/uL (0-0.7); Eosinophils % (A) 5 %; HCT 23.7 % (39.0-53.0); Hyperchromasia Slight; Lymphocytes # (A) 1.6 k/uL (1.0-4.8); Lymphocytes % (A) 29 %; MCH 29.3 pg (25.0-35.0); MCHC 35.7 g/dL (31.0-37.0); MCV 82.3 fL (80.0-100.0); Mean Platelet Volume 8.1; Monocytes # (A) 0.3 k/uL (0-1.0); Monocytes % (A) 5 %; Neutrophils # (A) 3.2 k/uL (1.3-7.7); Neutrophils % (A) 60 %; Platelet Count 108 k/uL (150-450); Poikilocytosis Slight; RBC 2.87 m/uL (4.30-5.90); RDW 13.3 % (11.5-15.5); WBC 5.4 k/uL (3.8-10.6)
[2017-05-30 06:48] LABS: Glucose,Whole Blood 197 mg/dL (75-99)
[2017-05-30 06:53] LABS: HGB 8.4 gm/dL (13.0-17.5)
[2017-05-30 06:56] LABS: Calcium 8.3 mg/dL (8.4-10.2); Potassium 4.2 mmol/L (3.5-5.1)
[2017-05-30 08:01] VITALS: BP 133/92; PULSE 91; RESP 18
--- NOTE | 2017-05-30 09:41 | ECHOF ---
Referral Reason:Stroke MEASUREMENTS -------- HEIGHT: 180.3 cm WEIGHT: 62.1 kg BP: 144/95 IVSd: 1.5 cm (0.6 - 1.1) LVIDd: 3.7 cm (3.9 - 5.3) LVPWd: 1.6 cm (0.6 - 1.1) IVSs: 1.6 cm LVIDs: 2.7 cm LVPWs: 2.0 cm LAESV Index (A-L): 23.14 ml/m Ao Diam: 3.0 cm (2.0 - 3.7) AV Cusp: 2.1 cm (1.5 - 2.6) LA Diam: 3.1 cm (2.7 - 3.8) MV EXCURSION: 11.844 mm (> 18.000) MV EF SLOPE: 107 mm/s (70 - 150) EPSS: 0.8 cm MV E Hilton: 0.80 m/s MV DecT: 229 ms MV A Hilton: 0.72 m/s MV E/A Ratio: 1.12 RAP: 5.00 mmHg RVSP: 17.62 mmHg FINDINGS -------- Sinus rhythm. This was a technically good study. The left ventricular size is normal. There is moderate concentric left ventricular hypertrophy. O verall left ventricular systolic function is normal with, an EF between 55 - 60 %. The right ventricle is normal in size and function. The left atrium is normal in size. The right atrium is normal in size. The aortic valve is trileaflet, and appears structurally normal. No aortic stenosis or regurgitation. The mitral valve leaflets are mildly thickened. There is trace mitral regurgitation. Trace tricuspid regurgitation present. The right ventricular systolic pressure, as measured by Dopp ler, is 17.62mmHg. Pulmonic valve appears structurally normal. The aortic root size is normal. Normal inferior vena cava with normal inspiratory collapse consistent with estimated right atrial pre ssure of 5 mmHg. There is a trivial pericardial effusion present. CONCLUSIONS -------- 1. Sinus rhythm. 2. This was a technically good study. 3. The left ventricular size is normal. 4. There is moderate concentric left ventricular hypertrophy. 5. Overall left ventricular systolic function is normal with, an EF between 55 - 60 %. 6. The right ventricle is normal in size and function. 7. The left atrium is normal in size. 8. The right atrium is normal in size. 9. The aortic valve is trileaflet, and appears structurally normal. No aortic stenosis or regurgitati on. 10. The mitral valve leaflets are mildly thickened. 11. There is trace mitral regurgitation. 12. Trace tricuspid regurgitation present. 13. The right ventricular systolic pressure, as measured by Doppler, is 17.62mmHg. 14. Pulmonic valve appears structurally normal. 15. The aortic root size is normal. 16. Normal inferior vena cava with normal inspiratory collapse consistent with estimated right atrial pressure of 5 mmHg. 17. There is a trivial pericardial effusion present. LEAN FACILITATOR: Susu Wray RDCS
[2017-05-30 12:04] LABS: Glucose,Whole Blood 105 mg/dL (75-99)
--- NOTE | 2017-05-30 13:53 | US ---
EXAMINATION TYPE: US carotid duplex BILAT DATE OF EXAM: 05/30/2017 COMPARISON: NONE CLINICAL HISTORY: r/o stenosis. EXAM MEASUREMENTS: RIGHT: Peak Systolic Velocity (PSV) cm/sec ----- Right CCA: 94.7 ----- Right ICA: 75.4 ----- Right ECA: 103.8 ICA/CCA ratio: 0.8 RIGHT: End Diastole cm/sec ----- Right CCA: 36.5 ----- Right ICA: 32.6 ----- Right ECA: 13.3 LEFT: Peak Systolic Velocity (PSV) cm/sec ----- Left CCA: 107.9 ----- Left ICA: 94.4 ----- Left ECA: 118.3 ICA/CCA ratio: 0.9 LEFT: End Diastole cm/sec ----- Left CCA: 32.5 ----- Left ICA: 27.3 ----- Left ECA: 16.2 VERTEBRALS (direction of flow): Right Vertebral: Antegrade Left Vertebral: Antegrade Rhythm: Normal Grayscale images show no significant plaque at common bulb level bilaterally. Velocity measurements a nd ratios in visualized portion of both internal carotid arteries is within normal limits. IMPRESSION: No hemodynamically stenosis is seen in either internal carotid artery.
--- NOTE | 2017-05-30 19:29 | EEG ---
ELECTROENCEPHALOGRAM REPORT DATE OF SERVICE: 05/30/2017 REASON FOR TESTING: Dizziness. DESCRIPTION OF THE PROCEDURE: This EEG was performed using a 21-channel digital electroencephalograph, following international 10-20 system. DESCRIPTION OF THE RECORDING: From the beginning of the tracing, and with the patient's eyes closed, the background rhythm was mostly consisting of 9-10 Hz alpha frequency in the posterior occipital leads. No obvious asymmetry is seen. Occasional movement artifacts are seen. Photic stimulation was performed with a good driving response seen. No pathological waves were elicited. Occasional muscle artifacts are seen. Hyperventilation was not performed. The patient remains awake throughout the tracing. No epileptiform discharges were seen. His EKG lead showed a regular rate and rhythm. INTERPRETATION: This awake EEG can be considered within normal limits. There was no asymmetry seen. No epileptiform discharges were noticed. The absence of epileptiform discharges does not rule out the diagnosis of epilepsy; therefore clinical correlation is recommended. CECIL / IJN: [id number] /
--- NOTE | 2017-05-30 20:14 | DS ---
DISCHARGE SUMMARY DATE OF SERVICE: 05/30/2017. FINAL DIAGNOSES: 1. Numbness of the right face and legs, possibly transient ischemic attack. 2. Diabetes type 1. 3. History of diabetic ketoacidosis. 4. Increased creatinine with chronic kidney stage 3. 5. Anemia. DISCHARGE DISPOSITION: Patient being discharged in stable condition with guarded prognosis. HISTORY OF PRESENT ILLNESS: This 31-year-old gentleman with past medical history was admitted with numbness and possibility of cerebellar lesion was considered but MRI was normal. Neurology saw the patient and recommended outpatient followup. 2D echo was normal. On exam vital signs stable. Cardiovascular system: S1, S2. Abdomen soft. Central nervous system: No focal deficits. DISCHARGE ADVICE AND MEDICATIONS: 1. Follow up with Dr. Hurtado in 2 to 3 days. 2. Follow up with Dr. Vazquez in week. MEDICATIONS ARE: 1. Ecotrin 81 mg p.o. daily. 2. Lipitor 20 mg q.h.s. 3. NovoLog scale. 4. Lantus 8 units subcu q.h.s. 5. Antivert 25 mg q.h.s. 6. No smoking. 7. Habitrol 14 daily. MMODL / IJN: [id number] /
--- NOTE | 2017-05-30 22:15 | P.PN ---
Subjective Progress Note Date: 05/30/17 Principal diagnosis: numbness and eye pain Neurology is following a 31-year-old male being evaluated and followed for numbness and eye pain. Over the past 2 days previous to admission patient had been having episodes of eye pain and numbness. Developed pain in his left eye along with some numbness in his right upper extremity. Eye pain lasted for greater than 8 hours and the numbness lasted for approximately 10 minutes. Pain was resolved related to the eye. One day prior to admission patient began developing similar eye pain involving the left thigh and also noticed numbness in his right face. Symptoms lasted a couple hours and resolve spontaneously. Patient presented to the ED and a CT of the brain was done which showed a questionable hypoattenuation in the left cerebellum measuring approximately 1 cm. Laboratory blood work noted CBCanemia, CMP noted renal insufficiency. Patient has a long-standing history of diabetes but has not been well controlled up until the last several months. At worst, his A1c was 11.4 most recently it was reduced to 5.9. MRI of the brain was requested on consult by neurology which noted nonspecific white matter changes that were too small to characterize. No evidence of cerebellar lesion on noncontrast study. Left- sided mastoiditis as well as chronic and acute paranasal sinusitis. Patient declined any imaging or testing involving contrast dye stating that his primary care provider advised him not to have any contrast related medium and he would not consent without speaking to his primary care provider who was unavailable by phone per nursing staff. Patient was explained by staff his renal function had to meet minimum threshold to engage in testing, but patient still declined. Patient was explained risks, benefits and alternatives to declining testing. Patient's carotid Doppler study noted no hemodynamically significant stenosis. EEG was normal. Patient stated he had college graduation and would leave AMA if necessary or if testing wad not fully completed prior to him wanting to leave. On contact, the patient was supine in bed resting in no acute distress with family at the bedside. Patient was alert and oriented 3 and in no acute distress. Objective - Vital Signs Vital signs: Vital Signs Temp 97.8 F 05/30/17 07:43 Pulse 91 05/30/17 07:43 Resp 18 05/30/17 12:00 BP 133/92 05/30/17 07:43 Pulse Ox 100 05/30/17 07:43 Intake & Output 05/30/17 05/30/17 05/31/17 06:59 18:59 06:59 Intake Total 980 400 Balance 980 400 Weight 62.5 kg Intake: IV 20 0.9 20 Oral 960 400 Other: Voiding Method Toilet Toilet # Voids 3 1 - Exam General appearance: Alert & oriented x3, no apparent distress. Head: Atraumatic, normocephalic, normal inspection Eyes: Well appearance, PERRLA, EOMI. Ear, nose and throat: Normal exam, mucous membranes moist Neck: Normal inspection, absent tenderness, lymphadenopathy. Respiratory: No increased work of breathing Cardiovascular: Regular rate, rhythm GI/abdominal: nontender, nondistended Extremities: full range of motion was no obvious edema Neurological: cranial nerves II through XII intact no lateralizing weakness no seizure activity noted on physical exam no pronator drift and no nystagmus. strength all 4 extremities are equal: 5/5 Sensation: equal to light touch in all 4 extremities Psychological: Mood and affect appropriate for setting. - Labs CBC & Chem 7: 05/30/17 05:40 05/30/17 05:40 Labs: Abnormal Lab Results - Last 24 Hours (Table) 05/28/17 05/30/17 05/30/17 Range/Units 19:55 05:12 05:40 RBC 2.87 L (4.30-5.90) m/uL Hgb 8.4 L D (13.0-17.5) gm/dL Hct 23.7 L (39.0-53.0) % Plt Count 108 L (150-450) k/uL Carbon Dioxide (22-30) mmol/L BUN (9-20) mg/dL Creatinine (0.66-1.25) mg/dL Glucose (74-99) mg/dL POC Glucose (mg/dL) 303 H (75-99) mg/dL Hemoglobin A1c 6.2 H (4.0-6.0) % Calcium (8.4-10.2) mg/dL Triglycerides (<150) mg/dL LDL Cholesterol, Calc (0-99) mg/dL 05/30/17 05/30/17 05/30/17 Range/Units 05:40 06:47 11:53 RBC (4.30-5.90) m/uL Hgb (13.0-17.5) gm/dL Hct (39.0-53.0) % Plt Count (150-450) k/uL Carbon Dioxide 32 H (22-30) mmol/L BUN 26 H (9-20) mg/dL Creatinine 1.51 H (0.66-1.25) mg/dL Glucose 255 H (74-99) mg/dL POC Glucose (mg/dL) 197 H 105 H (75-99) mg/dL Hemoglobin A1c (4.0-6.0) % Calcium 8.3 L (8.4-10.2) mg/dL Triglycerides 158 H (<150) mg/dL LDL Cholesterol, Calc 109 H (0-99) mg/dL Assessment and Plan (1) White matter changes Status: Acute Code(s): EUO7734 - SNOMED Code(s): 661840357 (2) Hyperlipidemia Status: Acute Code(s): E78.5 - HYPERLIPIDEMIA, UNSPECIFIED SNOMED Code(s): 80387064 (3) Numbness on right side Status: Acute Code(s): R20.0 - ANESTHESIA OF SKIN SNOMED Code(s): 45105540 Plan: 1. White matter changes Patient was found to have white matter changes on imaging. Imaging was noncontrast and patient was explained it could be beneficial for contrast- enhanced MRI lesions noted were too small to characterize at this time. Recommend ongoing surveillance with repeat imaging in one year or if symptoms significantly increase her recur. Although the patient's symptoms. Similar to TIA, there are also consistent with white matter changes as well. 2. Hyperlipidemia Triglycerides and LDL were both mildly elevated on laboratory blood work. patient was recommended to be started on Lipitor 10 mg by mouth daily at bedtime. Also recommended follow-up with primary care provider for dietary management and education on outpatient basis to decrease cholesterol levels. 3. Right-sided numbness as noted #1 and #4 below 4. Left eye pain Further workup can be conducted in the outpatient setting. Patient is declining any further investigative testing or workup in patient. At this time it is possible the patient had a TIA related to the patient's intermittently controlled diabetes. Patient did have ocular surgery/procedure with Dr. Roman which was noted to have some complications. At this time it is unclear whether those complication had any secondary etiology related to the patient's left thigh pain. Patient referred back to retail field representative for reevaluation and further treatment options. Status: Patient is cleared for discharge from a neurological standpoint. Further workup will be addressed in the outpatient setting. I have discussed the plan of care with the physician prior to implementation and he agrees with the plan as implemented.
== END 2017-05-30 15:55 | disposition home or self-care (01) ==
LOC: EC 17:12 → 6SEL 21:29
PROVIDERS: ADMIT Internal Medicine; ATTEND Internal Medicine
DX: R20.0 Anesthesia of skin (principal); R90.89 Other abnormal findings on diagnostic imaging of central nervous system; E10.22 Type 1 diabetes mellitus with diabetic chronic kidney disease; N18.3 Chronic kidney disease, stage 3 (moderate); D64.9 Anemia, unspecified; H57.12 Ocular pain, left eye; F17.200 Nicotine dependence, unspecified, uncomplicated; E78.5 Hyperlipidemia, unspecified; Z79.4 Long term (current) use of insulin; Z79.899 Other long term (current) drug therapy
CPT/HCPCS: 99285 ×2; 96360 ×2; 36415; 95816; 93306; 80061; 80053; 80048; 85025 ×2; 83090; 83036; 93880; 70450; 70551; G0378 ×3

== ENCOUNTER 2017-06-10 22:58 | Observation (INO) | payer MEDICAID ==
[2017-06-10] MEDS ORDERED: SODIUM CHLORIDE 0.9% 1,000 ML IV STA (23:12)
[2017-06-10 23:18] LABS: Glucose,Whole Blood 118 mg/dL (75-99)
--- NOTE | 2017-06-10 23:22 | ED ---
General Adult HPI - General Chief complaint: Neuro Symptoms/Deficit Stated complaint: Possible stroke Time Seen by Provider: 06/10/17 23:05 Source: patient, RN notes reviewed Mode of arrival: wheelchair Limitations: no limitations - History of Present Illness Initial comments: Patient is a pleasant 31-year-old male presenting to the emergency Department with complaints of left-sided paresthesias. Patient took a nap at 7:30. Patient woke up around 10:30 with symptoms. Patient felt paresthesias of the entire left side including the face, arm, and leg. Patient states symptoms have significantly improved and are near resolved. Patient states there may have been some left arm heaviness earlier that has resolved. Patient did have similar symptoms several weeks ago on the right side. Patient did check his blood sugar at home with result around 130. - Related Data Home Medications Medication Instructions Recorded Confirmed Insulin Aspart [NovoLOG See Protocol SQ AC-TID 01/28/17 06/10/17 (formulary)] Insulin Aspart [NovoLOG 1 dose SQ AC-TID 05/28/17 06/10/17 (formulary)] Amoxic-Pot Clav 875-125Mg 1 tab PO Q12HR 06/10/17 06/10/17 [Augmentin 875-125] Insulin Glargine,Hum.rec.anlog 10 - 16 unit SQ HS 06/10/17 06/10/17 [Lantus Solostar] Previous Rx's Medication Instructions Recorded Aspirin EC [Ecotrin Low Dose] 81 mg PO DAILY #30 tablet. 05/30/17 Atorvastatin Calcium [Lipitor] 10 mg PO HS #30 tab 05/30/17 Nicotine 21Mg/24Hr Patch [Habitrol] 1 each TRANSDERM DAILY #30 patch 05/30/17 Allergies Allergy/AdvReac Type Severity Reaction Status Date / Time No Known Allergies Allergy Verified 05/28/17 21:52 Review of Systems ROS Statement: Those systems with pertinent positive or pertinent negative responses have been documented in the HPI. ROS Other: All systems not noted in ROS Statement are negative. Constitutional: Denies: fever Eyes: Denies: eye pain ENT: Denies: ear pain Respiratory: Denies: cough Cardiovascular: Denies: chest pain Endocrine: Denies: fatigue Gastrointestinal: Denies: abdominal pain Genitourinary: Denies: dysuria Musculoskeletal: Denies: back pain Skin: Denies: rash Neurological: Reports: headache (Patient does occasionally get similar headaches ), paresthesias Past Medical History Past Medical History: Diabetes Mellitus Additional Past Medical History / Comment(s): IDDM type I, DKA History of Any Multi-Drug Resistant Organisms: None Reported Past Surgical History: Hernia Repair Additional Past Surgical History / Comment(s): Inguinal hernia repair Past Anesthesia/Blood Transfusion Reactions: No Reported Reaction Past Psychological History: No Psychological Hx Reported Smoking Status: Current every day smoker Past Alcohol Use History: None Reported Past Drug Use History: None Reported - Past Family History Father Family Medical History: No Reported History Additional Family Medical History / Comment(s): Father is healthy Mother Family Medical History: No Reported History Additional Family Medical History / Comment(s): Mother is healthy. General Exam Limitations: no limitations General appearance: alert, in no apparent distress Head exam: Present: atraumatic Eye exam: Present: normal appearance, PERRL, EOMI. Absent: nystagmus ENT exam: Present: normal oropharynx Neck exam: Present: normal inspection Respiratory exam: Present: normal lung sounds bilaterally Cardiovascular Exam: Present: regular rate, normal rhythm GI/Abdominal exam: Present: soft. Absent: tenderness Extremities exam: Present: normal inspection Neurological exam: Present: alert, oriented X3, CN II-XII intact. Absent: motor sensory deficit Expanded Neurological exam: Present: protecting the airway Speech: Present: fluid speech Cranial nerves: EOM's Intact: Normal, Facial Sensation: Normal (Patient states it feels odd in the left cheek however is able to sense) Upper motor neuron: Gaudencio Neglect: Normal Sensory exam: Upper Extremity Light Touch: Normal, Lower Extremity Light Touch: Normal Motor strength exam: RUE: 5, LUE: 5, RLE: 5, LLE: 5 Eye Response: (4) open spontaneously Motor Response: (6) obeys commands Verbal Response: (5) oriented Psychiatric exam: Present: normal affect, normal mood Skin exam: Present: normal color Course Vital Signs 06/10/17 22:59 Temperature 98.1 F Pulse Rate 94 Respiratory 20 Rate Blood Pressure 160/99 O2 Sat by Pulse 100 Oximetry EKG Findings - EKG Comments: EKG Findings:: Normal sinus rhythm 90. MN 138. QRS 74. QT 352. QTC 4:30. Normal axis. Normal QRS. No acute ST change. Medical Decision Making - Medical Decision Making Patient reevaluated and resting comfortably in bed. Patient still does complain of headache and will be provided acetaminophen for this. Patient is updated on results and plan. Practitioner Marlen fitness coach has been paged for admission for Dr. Haji, admits for Dr. Hurtado. Neurology will be consult as well. - Lab Data Result diagrams: 06/10/17 23:15 06/10/17 23:15 Lab Results 06/10/17 06/10/17 06/10/17 Range/Units 23:14 23:15 23:15 WBC 6.2 (3.8-10.6) k/uL RBC 2.68 L (4.30-5.90) m/uL Hgb 8.0 L (13.0-17.5) gm/dL Hct 21.3 L (39.0-53.0) % MCV 79.4 L (80.0-100.0) fL MCH 29.7 (25.0-35.0) pg MCHC 37.5 H (31.0-37.0) g/dL RDW 13.7 (11.5-15.5) % Plt Count 96 L (150-450) k/uL Neutrophils % 57 % Lymphocytes % 32 % Monocytes % 5 % Eosinophils % 5 % Basophils % 0 % Neutrophils # 3.5 (1.3-7.7) k/uL Lymphocytes # 2.0 (1.0-4.8) k/uL Monocytes # 0.3 (0-1.0) k/uL Eosinophils # 0.3 (0-0.7) k/uL Basophils # 0.0 (0-0.2) k/uL Hyperchromasia Slight PT (9.0-12.0) sec INR (<1.2) APTT (22.0-30.0) sec Sodium (137-145) mmol/L Potassium (3.5-5.1) mmol/L Chloride (98-107) mmol/L Carbon Dioxide (22-30) mmol/L Anion Gap mmol/L BUN (9-20) mg/dL Creatinine (0.66-1.25) mg/dL Est GFR (CKD-EPI)AfAm (>60 ml/min/1.73 sqM) Est GFR (CKD-EPI)NonAf (>60 ml/min/1.73 sqM) Glucose (74-99) mg/dL POC Glucose (mg/dL) 118 H (75-99) mg/dL POC Glu Patient Account Specialist ID Linda Griffith Calcium (8.4-10.2) mg/dL Total Bilirubin (0.2-1.3) mg/dL AST (17-59) U/L ALT (21-72) U/L Alkaline Phosphatase (38-126) U/L Total Creatine Kinase 54 L (55-170) U/L CK-MB (CK-2) 1.2 (0.0-2.4) ng/mL CK-MB (CK-2) Rel Index 2.2 Troponin I <0.012 (0.000-0.034) ng/mL Total Protein (6.3-8.2) g/dL Albumin (3.5-5.0) g/dL 06/10/17 06/10/17 Range/Units 23:15 23:15 WBC (3.8-10.6) k/uL RBC (4.30-5.90) m/uL Hgb (13.0-17.5) gm/dL Hct (39.0-53.0) % MCV (80.0-100.0) fL MCH (25.0-35.0) pg MCHC (31.0-37.0) g/dL RDW (11.5-15.5) % Plt Count (150-450) k/uL Neutrophils % % Lymphocytes % % Monocytes % % Eosinophils % % Basophils % % Neutrophils # (1.3-7.7) k/uL Lymphocytes # (1.0-4.8) k/uL Monocytes # (0-1.0) k/uL Eosinophils # (0-0.7) k/uL Basophils # (0-0.2) k/uL Hyperchromasia PT 9.3 (9.0-12.0) sec INR 0.9 (<1.2) APTT 20.6 L (22.0-30.0) sec Sodium 139 (137-145) mmol/L Potassium 4.2 (3.5-5.1) mmol/L Chloride 100 (98-107) mmol/L Carbon Dioxide 30 (22-30) mmol/L Anion Gap 9 mmol/L BUN 36 H (9-20) mg/dL Creatinine 2.20 H (0.66-1.25) mg/dL Est GFR (CKD-EPI)AfAm 45 (>60 ml/min/1.73 sqM) Est GFR (CKD-EPI)NonAf 39 (>60 ml/min/1.73 sqM) Glucose 111 H (74-99) mg/dL POC Glucose (mg/dL) (75-99) mg/dL POC Glu Patient Account Specialist ID Calcium 8.7 (8.4-10.2) mg/dL Total Bilirubin 0.5 (0.2-1.3) mg/dL AST 59 (17-59) U/L ALT 61 (21-72) U/L Alkaline Phosphatase 122 (38-126) U/L Total Creatine Kinase (55-170) U/L CK-MB (CK-2) (0.0-2.4) ng/mL CK-MB (CK-2) Rel Index Troponin I (0.000-0.034) ng/mL Total Protein 5.3 L (6.3-8.2) g/dL Albumin 2.9 L (3.5-5.0) g/dL - Radiology Data Radiology results: report reviewed (Computed tomography scan of the chest shows no acute process. Pansinusitis.), image reviewed (Chest x-ray shows slight increase in perihilar markings that could relate to bronchitis.) Disposition Clinical Impression: Paresthesia Disposition: ADMITTED IP TO THIS HOSP Is patient prescribed a controlled substance at d/c from ED?: No Referrals: Sahra Hurtado MD [Primary Care Provider] - 1-2 days Decision Time: 00:37
[2017-06-10 23:39] LABS: Basophils % (A) 0 %; Eosinophils # (A) 0.3 k/uL (0-0.7); Eosinophils % (A) 5 %; HCT 21.3 % (39.0-53.0); Hyperchromasia Slight; Lymphocytes % (A) 32 %; MCH 29.7 pg (25.0-35.0); MCHC 37.5 g/dL (31.0-37.0); MCV 79.4 fL (80.0-100.0); Mean Platelet Volume 8.7; Monocytes # (A) 0.3 k/uL (0-1.0); Monocytes % (A) 5 %; Neutrophils # (A) 3.5 k/uL (1.3-7.7); Neutrophils % (A) 57 %; RBC 2.68 m/uL (4.30-5.90); RDW 13.7 % (11.5-15.5); WBC 6.2 k/uL (3.8-10.6)
--- NOTE | 2017-06-10 23:39 | CT ---
EXAMINATION TYPE: CT brain wo con for TPA DATE OF EXAM: 06/10/2017 COMPARISON: 05/28/2017 HISTORY: Prior on synapse, [facility] with left sided numbness to face, upper and lower extremities CT DLP: 1108.40 mGycm Automated exposure control for dose reduction was used. FINDINGS: Ventricles of normal size. There is no mass effect nor midline shift. There is no sign of intracrania l hemorrhage. Calvarium is intact. There is no evidence of an infarct. There is mucosal thickening in the maxillary ethmoid frontal sinuses. There is also mild involvement of sphenoid sinus. I see no fo bob bone destruction. IMPRESSION: Negative CT scan of the brain. No change compared to old exam. Pansinusitis.
--- NOTE | 2017-06-10 23:43 | XR ---
EXAMINATION TYPE: XR chest 2V DATE OF EXAM: 06/10/2017 COMPARISON: 07/15/2016 HISTORY: Headache. Left-sided numbness. TECHNIQUE: Frontal and lateral views of the chest are obtained. FINDINGS: Heart and mediastinum are normal. Lungs are clear of consolidation. Diaphragm is normal. T here are chest leads. There is slight coarsening of the lung markings below both pulmonary jayeln. IMPRESSION: Slight increased perihilar markings in the lower lobes could relate to bronchitis. Zuleyma l heart. This is a change compared to old exam.
[2017-06-10 23:50] LABS: Albumin 2.9 g/dL (3.5-5.0); Calcium 8.7 mg/dL (8.4-10.2); Potassium 4.2 mmol/L (3.5-5.1); Total Bilirubin 0.5 mg/dL (0.2-1.3); Total Protein 5.3 g/dL (6.3-8.2)
[2017-06-11 00:02] LABS: Creatine Kinase 54 U/L (55-170)
[2017-06-11 00:03] LABS: INR 0.9 (<1.2); Prothrombin Time 9.3 sec (9.0-12.0)
[2017-06-11 00:16] LABS: Creatine Kinase MB 1.2 ng/mL (0.0-2.4); Troponin I <0.012 ng/mL (0.000-0.034)
[2017-06-11 00:22] LABS: Partial Thromboplastin Time 20.6 sec (22.0-30.0)
[2017-06-11 00:28] LABS: Platelet Count 96 k/uL (150-450)
[2017-06-11] MEDS ORDERED: ACETAMINOPHEN TAB 500 MG TAB PO STA (00:35)
[2017-06-11] MEDS ORDERED: ASPIRIN 325 MG TAB PO STA (00:37)
[2017-06-11] MEDS: SODIUM CHLORIDE 0.9% 1,000 ML IV SCH ×3 (01:29→13:23)
[2017-06-11] MEDS ORDERED: amLODIPine 5 MG TAB PO STA ×2 (02:24→03:41)
[2017-06-11] MEDS ORDERED: MORPHINE SULFATE 4 MG/ML SYRINGE IVP STA (02:31)
[2017-06-11 02:43] LABS: Glucose,Whole Blood 290 mg/dL (75-99)
[2017-06-11] MEDS ORDERED: INSULIN ASPART 100 UNIT/ML 1 ML 10 ML VIAL SQ ONE (02:50)
[2017-06-11 08:43] LABS: Glucose,Whole Blood 324 mg/dL (75-99)
[2017-06-11] MEDS: INSULIN ASPART 100 UNIT/ML 1 ML 10 ML VIAL SQ SCH ×2 (09:02→13:21)
[2017-06-11 09:53] VITALS: RESP 18
[2017-06-11 11:44] VITALS: BP 122/73; PULSE 84; TEMP 97.8
[2017-06-11 11:50] LABS: Glucose,Whole Blood 297 mg/dL (75-99)
[2017-06-11] MEDS ORDERED: INSULIN ASPART 100 UNIT/ML 1 ML 10 ML VIAL SQ SCH (12:30)
[2017-06-11 12:42] LABS: Hemoglobin A1C 6.6 % (4.0-6.0)
[2017-06-11 12:45] LABS: Calcium 7.9 mg/dL (8.4-10.2); Potassium 4.5 mmol/L (3.5-5.1)
[2017-06-11] MEDS ORDERED: AMOXIC-POT CLAV 875-125MG 1 EACH TAB PO STA (13:00)
--- NOTE | 2017-06-11 14:13 | P.HPIM ---
History of Present Illness 31-year-old male presenting to the emergency Department with complaints of left- sided paresthesias. Patient took a nap at 7:30. Patient woke up around 10:30 with symptoms. Patient felt paresthesias of the entire left side including the face, arm, and leg. Patient states symptoms have significantly improved and are near resolved. Patient states there may have been some left arm heaviness earlier that has resolved. Patient did have similar symptoms several weeks ago on the right side. patient is presently his symptoms completely resolved. Patient was recently evaluated in the hospital. Days ago for TIA and a stroke MRI at that time was negative patient underwent the carotid Doppler and echocardiogram which are also within normal lives because of which repeat testing with these things were not ordered.patient at the time was discharged on statin. Patient can use to smoke counseling regarding that was provided patient was also given aspirin. His blood sugars are essentially within normal limits. Patient also has acute renal failure from intravascular depletion improved with IV fluids baseline creatinine is around 1.2 came in with 2.5 now came down to 1.99 Review of Systems REVIEW OF SYSTEMS: CONSTITUTIONAL: No fever, no malaise, no fatigue. HEENT: No recent visual problems or hearing problems. Denied any sore throat. CARDIOVASCULAR: No chest pain, orthopnea, PND, no palpitations, no syncope. PULMONARY: No shortness of breath, no cough, no hemoptysis. GASTROINTESTINAL: No diarrhea, no nausea, no vomiting, no abdominal pain. Normoactive bowel sounds. NEUROLOGICAL: No headaches, no weakness. HEMATOLOGICAL: Denies any bleeding or petechiae. GENITOURINARY: Denies any burning micturition, frequency, or urgency. MUSCULOSKELETAL/RHEUMATOLOGICAL: Denies any joint pain, swelling, or any muscle pain. ENDOCRINE: Denies any polyuria or polydipsia. The rest of the 14-point review of systems is negative. Past Medical History Past Medical History: Diabetes Mellitus, Eye Disorder Additional Past Medical History / Comment(s): Pt recently admitted to [facility] on with numbness R side face/legs and possible TIA. Other hx: IDDM type I , DKA, CKD stage III, anemia, bilateral cataracts, bilateral eye pain since laser surgery April 2017 due to retinal bleeds and since has had increased difficulty with vision-saw Dr. Renteria (opthamologist) and states he was told it could be neurological. History of Any Multi-Drug Resistant Organisms: None Reported Past Surgical History: Hernia Repair Additional Past Surgical History / Comment(s): R inguinal hernia repair as a child, 04/2017 bilateral laser eye surgery for retinal bleeds unsuccessful Past Anesthesia/Blood Transfusion Reactions: No Reported Reaction Smoking Status: Current every day smoker - Past Family History Father Family Medical History: No Reported History Additional Family Medical History / Comment(s): Father is healthy Mother Family Medical History: No Reported History Additional Family Medical History / Comment(s): Mother is healthy. Medications and Allergies Home Medications Medication Instructions Recorded Confirmed Type Insulin Aspart [NovoLOG See Protocol SQ AC-TID 01/28/17 06/10/17 History (formulary)] Insulin Aspart [NovoLOG 1 dose SQ AC-TID 05/28/17 06/10/17 History (formulary)] Aspirin EC [Ecotrin Low Dose] 81 mg PO DAILY #30 tablet. 05/30/17 06/10/17 Rx Atorvastatin Calcium [Lipitor] 10 mg PO HS #30 tab 05/30/17 06/10/17 Rx Nicotine 21Mg/24Hr Patch [Habitrol] 1 each TRANSDERM DAILY #30 patch 05/30/17 Rx Amoxic-Pot Clav 875-125Mg 1 tab PO Q12HR 06/10/17 06/10/17 History [Augmentin 875-125] Insulin Glargine,Hum.rec.anlog 10 - 16 unit SQ HS 06/10/17 06/10/17 History [Lantus Solostar] Allergies Allergy/AdvReac Type Severity Reaction Status Date / Time No Known Allergies Allergy Verified 05/28/17 21:52 Physical Exam Vitals: Vital Signs Temp Pulse Pulse Resp BP BP Pulse Ox 06/11/17 11:37 97.8 F 84 18 122/73 96 06/11/17 09:37 97.9 F 88 18 132/87 98 06/11/17 07:37 97.8 F 94 18 137/92 98 06/11/17 05:08 84 16 150/87 99 06/11/17 04:37 84 18 153/90 99 06/11/17 03:50 90 16 165/97 06/11/17 03:08 91 18 197/112 98 06/11/17 02:08 92 18 176/111 99 06/11/17 01:08 87 84 18 178/102 180/107 99 06/11/17 00:08 86 18 150/95 100 06/10/17 23:08 90 18 152/99 100 06/10/17 22:59 98.1 F 94 20 160/99 100 Intake and Output 06/10/17 06/11/17 06/11/17 22:59 06:59 14:59 Other: Weight 60.781 kg PHYSICAL EXAMINATION: GENERAL: The patient is alert and oriented x3, not in any acute distress. Well developed, well nourished. HEENT: Pupils are round and equally reacting to light. EOMI. No scleral icterus. No conjunctival pallor. Normocephalic, atraumatic. No pharyngeal erythema. No thyromegaly. CARDIOVASCULAR: S1 and S2 present. No murmurs, rubs, or gallops. PULMONARY: Chest is clear to auscultation, no wheezing or crackles. ABDOMEN: Soft, nontender, nondistended, normoactive bowel sounds. No palpable organomegaly. MUSCULOSKELETAL: No joint swelling or deformity. EXTREMITIES: No cyanosis, clubbing, or pedal edema. NEUROLOGICAL: Gross neurological examination did not reveal any focal deficits. SKIN: No rashes. Results CBC & Chem 7: 06/10/17 23:15 06/11/17 12:02 Labs: Abnormal Lab Results - Last 24 Hours (Table) 06/10/17 06/10/17 06/10/17 Range/Units 23:14 23:15 23:15 RBC 2.68 L (4.30-5.90) m/uL Hgb 8.0 L (13.0-17.5) gm/dL Hct 21.3 L (39.0-53.0) % MCV 79.4 L (80.0-100.0) fL MCHC 37.5 H (31.0-37.0) g/dL Plt Count 96 L (150-450) k/uL APTT (22.0-30.0) sec BUN (9-20) mg/dL Creatinine (0.66-1.25) mg/dL Glucose (74-99) mg/dL POC Glucose (mg/dL) 118 H (75-99) mg/dL Calcium (8.4-10.2) mg/dL Total Creatine Kinase 54 L (55-170) U/L Total Protein (6.3-8.2) g/dL Albumin (3.5-5.0) g/dL 06/10/17 06/10/17 06/11/17 Range/Units 23:15 23:15 02:39 RBC (4.30-5.90) m/uL Hgb (13.0-17.5) gm/dL Hct (39.0-53.0) % MCV (80.0-100.0) fL MCHC (31.0-37.0) g/dL Plt Count (150-450) k/uL APTT 20.6 L (22.0-30.0) sec BUN 36 H (9-20) mg/dL Creatinine 2.20 H (0.66-1.25) mg/dL Glucose 111 H (74-99) mg/dL POC Glucose (mg/dL) 290 H (75-99) mg/dL Calcium (8.4-10.2) mg/dL Total Creatine Kinase (55-170) U/L Total Protein 5.3 L (6.3-8.2) g/dL Albumin 2.9 L (3.5-5.0) g/dL 06/11/17 06/11/17 06/11/17 Range/Units 08:41 11:31 12:02 RBC (4.30-5.90) m/uL Hgb (13.0-17.5) gm/dL Hct (39.0-53.0) % MCV (80.0-100.0) fL MCHC (31.0-37.0) g/dL Plt Count (150-450) k/uL APTT (22.0-30.0) sec BUN 32 H (9-20) mg/dL Creatinine 1.99 H (0.66-1.25) mg/dL Glucose 292 H (74-99) mg/dL POC Glucose (mg/dL) 324 H 297 H (75-99) mg/dL Calcium 7.9 L (8.4-10.2) mg/dL Total Creatine Kinase (55-170) U/L Total Protein (6.3-8.2) g/dL Albumin (3.5-5.0) g/dL Thrombosis Risk Factor Assmnt - Choose All That Apply Any of the Below Risk Factors Present?: No Other Risk Factors: No Other congenital or acquired thrombophilia - If yes, enter type in comment: No Thrombosis Risk Factor Assessment Level: Very Low Risk Assessment and Plan Plan: -tingling numbness initially on the right side of the body followed by left side of the body. My suspicion is low for TIA patient recently underwent workup for TIA. Possibility of multiple sclerosis also low. The other possibility is psychosomatic. We'll let neurology a valid the patient after neurological evaluation patient will be discharged. -Acute renal failure: Prerenal azotemia will increase IV fluids to 1 50 mL/h and the patient will be increased to drink water at home repeat the electrolytes as an outpatient. -Possible chronic kidney disease stage II from diabetic nephropathy. -Type 1 diabetes mellitus: Patient's blood sugars are well controlled at home regimen which will be continued -Hypertension -Hyperlipidemia.
--- NOTE | 2017-06-11 14:14 | P.DS ---
Providers Date of admission: 06/11/17 00:37 Attending physician: Anil Haji Consults: 06/11/17 00:37 Consult Physician Urgent Consulting Provider: Coleen Gonsales Consult Reason/Comments: Left-sided paresthesia, rule out TIA Do you want consulting provider notified?: Yes Primary care physician: Sahra Hurtado [facility] Course: please refer to my HPI Plan - Discharge Summary Discharge Rx Participant: No New Discharge Prescriptions: No Action Insulin Aspart [NovoLOG (formulary)] See Protocol SQ AC-TID Insulin Aspart [NovoLOG (formulary)] 1 dose SQ AC-TID Aspirin EC [Ecotrin Low Dose] 81 mg PO DAILY #30 tablet. Atorvastatin Calcium [Lipitor] 10 mg PO HS #30 tab Nicotine 21Mg/24Hr Patch [Habitrol] 1 each TRANSDERM DAILY #30 patch Insulin Glargine,Hum.rec.anlog [Lantus Solostar] 10 - 16 unit SQ HS Amoxic-Pot Clav 875-125Mg [Augmentin 875-125] 1 tab PO Q12HR Discharge Medication List Insulin Aspart [NovoLOG (formulary)] See Protocol SQ AC-TID 01/28/17 [History] Insulin Aspart [NovoLOG (formulary)] 1 dose SQ AC-TID 05/28/17 [History] Aspirin EC [Ecotrin Low Dose] 81 mg PO DAILY #30 tablet. 05/30/17 [Rx] Atorvastatin Calcium [Lipitor] 10 mg PO HS #30 tab 05/30/17 [Rx] Nicotine 21Mg/24Hr Patch [Habitrol] 1 each TRANSDERM DAILY #30 patch 05/30/17 [ Rx] Amoxic-Pot Clav 875-125Mg [Augmentin 875-125] 1 tab PO Q12HR 06/10/17 [History] Insulin Glargine,Hum.rec.anlog [Lantus Solostar] 10 - 16 unit SQ HS 06/10/17 [ History] Follow up Appointment(s)/Referral(s): Sahra Hurtado MD [Primary Care Provider] - 3 Days Discharge Disposition: HOME SELF-CARE
--- NOTE | 2017-06-11 16:54 | P.CNNES ---
History of Present Illness Consult date: 06/11/17 Reason for Consult: Patient admitted for left sided numbness and visual changes. History of Present Illness: This patient is a 31-year-old right-handed white male who was brought to the emergency room yesterday for evaluation of left-sided paresthesias. The patient was seen in the ER by Dr. Slater and was sent for a computed tomography scan of the brain. A CAT scan of the brain came back negative for any acute changes. The patient was evaluated in the emergency room today as there were no beds available for admission. Patient came in yesterday but the symptoms of acute left-sided numbness. The symptoms have subsequently resolved but initially did present with left face arm and leg numbness. The patient states that back on May 29 he was admitted to the hospital with similar symptoms of numbness but at that time involving his right face arm and leg. He was admitted to the hospital during that admission on 05/29/2017. He underwent a MRI of the brain on 05/29/2017 and the report indicated nonspecific white matter changes. There was no evidence of cerebellar lesion. Have sided mastoiditis and chronic pansinusitis was noted. We have reviewed this MRI results once again with the patient. It was recommended at that time the patient should follow-up with ophthalmology as well as arrange for a lumbar puncture. Patient states he was not aware of the lumbar puncture to be done and is not had this procedure as of today. The patient states that in early February he was experiencing eye pain in the right eye and was referred to Dr. Roman the infection control preventionist who is seen him on several occasions. Apparently he had some retinal changes secondary to his known history of diabetes and required laser treatment. According to the patient in early April she was referred to [facility] for a second opinion with an infection control preventionist Dr. Renteria. She had recommended at that time the patient to undergo a computed tomography scan of the brain as well as a lumbar puncture as she felt there was some changes suggesting central nervous system involvement for his vision changes at that time. Unfortunately the patient never followed through with these recommendations. Given the patient's MRI results we have explained to the patient that possibility of multiple sclerosis should be considered. His infection control preventionist also is concerned in terms of possibility of pseudotumor cerebri For further evaluation of these to medical conditions he would need to undergo a lumbar puncture. We've explained this to the patient in detail. Patient states he would rather arrange for the lumbar puncture to be done as outpatient. Since his neurological examination currently is completely normal he would like to go home and follow-up as outpatient in the neurology clinic. The patient states he will arrange for lumbar puncture as it is very important for further diagnostic purposes for him. Given his young age there is a possibility of early MS for this patient. Given the infection control preventionist recommendations he should undergo lumbar puncture for spinal fluid pressure checks as well. All of this can be arranged for the patient in the outpatient setting. As noted his CAT scan of the brain done yesterday was normal with no acute findings. Patient states that he does not have any recent history of diplopia. His only major symptom has been to also severe paresthesias one affecting the right side and now this most recent one affecting his left side. Again the exact etiology of this is still unclear. He does have underlying history of diabetes mellitus and is followed with an processing assistant. His most recent hemoglobin A1c was 6.4. It is unlikely that he has diabetic neuropathy to explain these sudden episodes of paresthesias. The patient does have chronic kidney disease stage II from diabetic nephropathy. He should follow-up with his primary care physician and african studies professor as needed. We also recommend that he should schedule back to be seen by Dr. Roman in the ophthalmology clinic soon after discharge for his further recommendations. Neurology is now been consulted for further evaluation and recommendations. Review of Systems Constitutional: Denies chills, Denies fever Eyes: right pain, bilateral decreased vision, denies blurred vision Ears, nose, mouth and throat: Denies headache, Denies sore throat Cardiovascular: Denies chest pain, Denies shortness of breath Respiratory: Denies cough Gastrointestinal: Denies abdominal pain, Denies diarrhea, Denies nausea, Denies vomiting Musculoskeletal: Denies myalgias Integumentary: Denies pruritus, Denies rash Neurological: Reports headaches, Reports paresthesias, Reports tingling, Denies numbness, Denies weakness Psychiatric: Denies anxiety, Denies depression Endocrine: Denies fatigue, Denies weight change Past Medical History Past Medical History: Diabetes Mellitus, Eye Disorder Additional Past Medical History / Comment(s): Pt recently admitted to [facility] on with numbness R side face/legs and possible TIA. Other hx: IDDM type I , DKA, CKD stage III, anemia, bilateral cataracts, bilateral eye pain since laser surgery April 2017 due to retinal bleeds and since has had increased difficulty with vision-saw Dr. Renteria (opthamologist) and states he was told it could be neurological. History of Any Multi-Drug Resistant Organisms: None Reported Past Surgical History: Hernia Repair Additional Past Surgical History / Comment(s): R inguinal hernia repair as a child, 04/2017 bilateral laser eye surgery for retinal bleeds unsuccessful Past Anesthesia/Blood Transfusion Reactions: No Reported Reaction Smoking Status: Current every day smoker - Past Family History Father Family Medical History: No Reported History Additional Family Medical History / Comment(s): Father is healthy Mother Family Medical History: No Reported History Additional Family Medical History / Comment(s): Mother is healthy. Medications and Allergies Home Medications Medication Instructions Recorded Confirmed Type Insulin Aspart [NovoLOG See Protocol SQ AC-TID 01/28/17 06/10/17 History (formulary)] Insulin Aspart [NovoLOG 1 dose SQ AC-TID 05/28/17 06/10/17 History (formulary)] Aspirin EC [Ecotrin Low Dose] 81 mg PO DAILY #30 tablet. 05/30/17 06/10/17 Rx Atorvastatin Calcium [Lipitor] 10 mg PO HS #30 tab 05/30/17 06/10/17 Rx Nicotine 21Mg/24Hr Patch [Habitrol] 1 each TRANSDERM DAILY #30 patch 05/30/17 Rx Amoxic-Pot Clav 875-125Mg 1 tab PO Q12HR 06/10/17 06/10/17 History [Augmentin 875-125] Insulin Glargine,Hum.rec.anlog 10 - 16 unit SQ HS 06/10/17 06/10/17 History [Lantus Solostar] Allergies Allergy/AdvReac Type Severity Reaction Status Date / Time No Known Allergies Allergy Verified 05/28/17 21:52 Physical Examination - Vital Signs Vital Signs: Vital Signs Temp Pulse Pulse Resp BP BP Pulse Ox 06/11/17 11:37 97.8 F 84 18 122/73 96 06/11/17 09:37 97.9 F 88 18 132/87 98 06/11/17 07:37 97.8 F 94 18 137/92 98 06/11/17 05:08 84 16 150/87 99 06/11/17 04:37 84 18 153/90 99 06/11/17 03:50 90 16 165/97 06/11/17 03:08 91 18 197/112 98 06/11/17 02:08 92 18 176/111 99 06/11/17 01:08 87 84 18 178/102 180/107 99 06/11/17 00:08 86 18 150/95 100 06/10/17 23:08 90 18 152/99 100 06/10/17 22:59 98.1 F 94 20 160/99 100 - Constitutional General appearance: cooperative, no acute distress, thin - EENT EENT: PERRL, mucous membranes moist - Respiratory Respiratory: lungs clear, normal breath sounds - Cardiovascular Cardiovascular: regular rate, normal S1, normal S2 Extremities: no peripheral edema bilaterally - Gastrointestinal Gastrointestinal: normoactive bowel sounds - Integumentary Integumentary: normal - Neurologic Cranial nerve examination: PERRL, EOMI, VFF, V1/V2/V3 grossly intact, face symmetric, tongue midline, intact gag reflex, intact corneal reflex, normal palatal elevation Speech examination: intact Sensorimotor examination: intact Detailed motor examination: grossly full strength in all extremities Motor examination - right side: 4/5: biceps, triceps, wrist flexion, wrist extension, beekeeper farmer, hip flexors, knee extensors, dorsiflexion, toe extension (EHL) , plantarflexion Motor examination - left side: 4/5: biceps, triceps, wrist flexion, wrist extension, beekeeper farmer, hip flexors, knee extensors, dorsiflexion, toe extension (EHL) , plantarflexion Detailed sensory examination: intact Reflex and gait examination: intact Reflexes: 1+: ankle, bicep, knee, tricep - Musculoskeletal Musculoskeletal: no pain - Psychiatric Psychiatric: mood/affect appropriate, cooperative Results - Laboratory Findings CBC and BMP: 06/10/17 23:15 06/11/17 12:02 Abnormal Lab Findings: Abnormal Labs 06/10/17 06/10/17 06/10/17 23:14 23:15 23:15 RBC 2.68 L Hgb 8.0 L Hct 21.3 L MCV 79.4 L MCHC 37.5 H Plt Count 96 L APTT BUN Creatinine Glucose POC Glucose (mg/dL) 118 H Hemoglobin A1c Calcium Total Creatine Kinase 54 L Total Protein Albumin 05/02/2706/10/17 06/10/17 23:15 23:15 23:15 RBC Hgb Hct MCV MCHC Plt Count APTT 20.6 L BUN 36 H Creatinine 2.20 H Glucose 111 H POC Glucose (mg/dL) Hemoglobin A1c 6.6 H Calcium Total Creatine Kinase Total Protein 5.3 L Albumin 2.9 L 06/11/17 06/11/17 06/11/17 02:39 08:41 11:31 RBC Hgb Hct MCV MCHC Plt Count APTT BUN Creatinine Glucose POC Glucose (mg/dL) 290 H 324 H 297 H Hemoglobin A1c Calcium Total Creatine Kinase Total Protein Albumin 06/11/17 12:02 RBC Hgb Hct MCV MCHC Plt Count APTT BUN 32 H Creatinine 1.99 H Glucose 292 H POC Glucose (mg/dL) Hemoglobin A1c Calcium 7.9 L Total Creatine Kinase Total Protein Albumin Assessment and Plan (1) Paresthesia Current Visit: Yes Status: Acute Code(s): R20.2 - PARESTHESIA OF SKIN SNOMED Code(s): 62229091 (2) Blurred vision, left eye Current Visit: No Status: Acute Code(s): H53.8 - OTHER VISUAL DISTURBANCES SNOMED Code(s): 003324832 (3) Type 1 diabetes mellitus Current Visit: Yes Status: Acute Code(s): E10.9 - TYPE 1 DIABETES MELLITUS WITHOUT COMPLICATIONS SNOMED Code(s): 12967799 (4) White matter changes Current Visit: No Status: Acute Code(s): SMO6103 - SNOMED Code(s): 241160536 Plan: This patient is a 31-year-old male who was admitted yesterday to the [facility] with sudden onset of left-sided paresthesias affecting his face arm and leg. Patient was brought into the emergency room and was evaluated in the ER by Dr. Slater. He was underwent a computed tomography scan of the brain yesterday which is normal with no acute changes noted. He was kept in the emergency room as there was no inpatient beds. Neurology was consulted for further evaluation today. Patient has had a similar episode that occurred back on 05/29/2017 with right-sided numbness involving face arm and leg. This is the second bout of paresthesias. He underwent an MRI of the brain last admission on 05/29/2017 the results of which are noted above. We have recommended the patient should undergo a lumbar puncture for further evaluation of demyelinating disease such as multiple sclerosis. We would also recommend that he have spinal fluid pressure checks done at the time of his LP as there is concern from his infection control preventionist for papilledema or pseudotumor cerebri. He will be following up with Dr. Roman his infection control preventionist, soon after discharge from the hospital. We are recommending the patient undergo lumbar puncture. We have discussed this at length with the patient and his as to our reasoning for a lumbar puncture. The patient would like to have the lumbar puncture done in the outpatient setting. This should be fine in the low be arranged for him to have it done at [facility] in the anesthesia department. Patient is advised to follow-up with his assembler equipment soon after discharge. His neurological examination today is entirely normal. The exact etiology of his paresthesias still remains unclear. Pending his spinal fluid results further recommendations will be given. His overall prognosis at this time remains guarded. Patient would like to be discharged home from the emergency room and will follow-up in the outpatient neurology clinic in 2-3 weeks. By that time we should have the results of his spinal fluid analysis back to review with him as well. Case was discussed at length with the patient and his . All of their questions were answered. His overall prognosis at this time remains guarded. Time with Patient: Greater than 30
[2017-06-11] MEDS ORDERED: AMOXIC-POT CLAV 875-125MG 1 EACH TAB PO SCH (21:00)
[2017-06-11] MEDS ORDERED: INSULIN DETEMIR 100 UNIT/ML 10 ML VIAL SQ SCH (21:00)
[2017-06-11] MEDS ORDERED: ATORVASTATIN 10 MG TAB PO SCH (21:00)
[2017-06-12] MEDS ORDERED: ASPIRIN 81 MG PO SCH (09:00)
[2017-06-12] MEDS ORDERED: ASPIRIN 325 MG TAB PO SCH (09:00)
[2017-06-12] MEDS ORDERED: NICOTINE 21MG/24HR PATCH TRANSDERM SCH (09:00)
== END 2017-06-11 16:00 | disposition home or self-care (01) ==
LOC: EC 22:58 → 6SEL 06-11 00:37
PROVIDERS: ADMIT Hospitalist; ATTEND Hospitalist
DX: R20.2 Paresthesia of skin (principal); R51 Headache; R20.0 Anesthesia of skin; E10.22 Type 1 diabetes mellitus with diabetic chronic kidney disease; N17.9 Acute kidney failure, unspecified; E10.21 Type 1 diabetes mellitus with diabetic nephropathy; I12.9 Hypertensive chronic kidney disease with stage 1 through stage 4 chronic kidney disease, or unspecified chronic kidney disease; E78.5 Hyperlipidemia, unspecified; N18.3 Chronic kidney disease, stage 3 (moderate); H53.8 Other visual disturbances; D64.9 Anemia, unspecified; F17.200 Nicotine dependence, unspecified, uncomplicated; Z79.899 Other long term (current) drug therapy; Z79.4 Long term (current) use of insulin; Z79.82 Long term (current) use of aspirin; Z79.2 Long term (current) use of antibiotics
CPT/HCPCS: 99285 ×2; 96374 ×2; 96361 ×17; 36415; 93005; 80053; 80048; 82550; 82553; 84484; 85025; 85610; 85730; 83036; 71046; 70450; G0378; J2270

== ENCOUNTER 2017-06-18 07:49 | Day surgery (SDC) | payer MEDICAID ==
[2017-06-17 10:11] VITALS: BMI 20.3
[~2017-06-18 07:49] MED LIST: LACTATED RINGERS 1,000 ML IV SCH
[2017-06-18] MEDS ORDERED: LIDOCAINE 1% 20 ML VIAL (10MG/ML) FOR IV START INTRADERMA ONE (09:17)
[2017-06-18 09:22] VITALS: BP 184/103; PULSE 106; RESP 16; TEMP 98.5
[2017-06-18] MEDS ORDERED: ONDANSETRON 4 MG/2 ML VIAL IVP ONE (09:33)
[2017-06-18 10:13] LABS: Basophils % (A) 0 %; Eosinophils # (A) 0.2 k/uL (0-0.7); Eosinophils % (A) 3 %; HGB 7.6 gm/dL (13.0-17.5); Hyperchromasia Slight; Lymphocytes % (A) 17 %; MCH 29.6 pg (25.0-35.0); MCHC 36.1 g/dL (31.0-37.0); Mean Platelet Volume 10.3; Monocytes # (A) 0.3 k/uL (0-1.0); Monocytes % (A) 5 %; Neutrophils # (A) 4.5 k/uL (1.3-7.7); Neutrophils % (A) 75 %; Platelet Count 93 k/uL (150-450); RBC 2.56 m/uL (4.30-5.90); RDW 14.4 % (11.5-15.5)
[2017-06-18 10:19] LABS: Glucose,Whole Blood 519 mg/dL (75-99)
[2017-06-18 10:19] LABS: Glucose,Whole Blood 495 mg/dL (75-99)
--- NOTE | 2017-06-18 10:55 | P.PN ---
Progress Note - Text Progress Note Date: 06/18/17 Patient was referred to [facility] to have diagnostic lumbar puncture, for diagnostic purpose to rule out demyelinating diseases, I reviewed the chart and the blood work done june, blood the platelet count was 96 , agreed and CBC today showed the platelet count 93 K , and the patient blood pressure systolic blood pressure more than 180 and diastolic blood pressure more than 110 , and blood sugar was 493, I explained to the patient will be the best option to send him to the emergency room, to manage all of these abnormalities, and he has to follow-up with his primary care , the diagnostic lumbar puncture , can be done at the time , after the blood pressure and blood sugars under control,
== END 2017-06-18 10:55 | disposition left against medical advice (07) ==
LOC: ORPAIN 07:49
PROVIDERS: ATTEND Specialist
DX: Z53.8 Procedure and treatment not carried out for other reasons (principal); R20.0 Anesthesia of skin; E11.9 Type 2 diabetes mellitus without complications
CPT/HCPCS: 85025; J2405

== ENCOUNTER 2017-06-18 15:05 | Observation (INO) | payer MEDICAID ==
[2017-06-18] MEDS ORDERED: SODIUM CHLORIDE 0.9% 1,000 ML IV STA (16:23)
[2017-06-18 17:01] LABS: Basophils % (A) 0 %; Eosinophils # (A) 0.2 k/uL (0-0.7); Eosinophils % (A) 3 %; HGB 7.9 gm/dL (13.0-17.5); Hyperchromasia Slight; Lymphocytes # (A) 1.6 k/uL (1.0-4.8); Lymphocytes % (A) 24 %; MCH 29.1 pg (25.0-35.0); MCHC 36.1 g/dL (31.0-37.0); MCV 80.7 fL (80.0-100.0); Mean Platelet Volume 9.7; Monocytes # (A) 0.3 k/uL (0-1.0); Monocytes % (A) 5 %; Neutrophils # (A) 4.4 k/uL (1.3-7.7); Neutrophils % (A) 67 %; Platelet Count 112 k/uL (150-450); RBC 2.72 m/uL (4.30-5.90); RDW 14.5 % (11.5-15.5); WBC 6.5 k/uL (3.8-10.6)
[2017-06-18 17:07] LABS: Appearance,Urine Clear (Clear); Bilirubin,Urine Negative (Negative); Blood,Urine Moderate (Negative); Color,Urine Yellow; Glucose,Urine (UA) 4+ (Negative); Hyaline Casts,Urine 15 /lpf (0-2); Ketones,Urine Negative (Negative); Leukocyte Esterase,Urine Negative (Negative); Nitrite,Urine Negative (Negative); Protein,Urine 3+ (Negative); RBC,Urine 23 /hpf (0-5); Urobilinogen,Urine <2.0 mg/dL (<2.0); WBC,Urine 1 /hpf (0-5)
[2017-06-18 17:09] LABS: INR 0.9 (<1.2); Prothrombin Time 9.4 sec (9.0-12.0)
[2017-06-18 17:09] LABS: Glucose,Whole Blood 52 mg/dL (75-99)
[2017-06-18 17:19] LABS: ALT 93 U/L (21-72); AST 94 U/L (17-59); Albumin 2.9 g/dL (3.5-5.0); Alkaline Phosphatase 139 U/L (38-126); Anion Gap 8 mmol/L; Blood Urea Nitrogen 25 mg/dL (9-20); Calcium 8.6 mg/dL (8.4-10.2); Carbon Dioxide 33 mmol/L (22-30); Chloride 102 mmol/L (98-107); Magnesium 2.1 mg/dL (1.6-2.3); Phosphorus 4.5 mg/dL (2.5-4.5); Potassium 3.8 mmol/L (3.5-5.1); Sodium 143 mmol/L (137-145); Total Bilirubin 0.6 mg/dL (0.2-1.3); Total Protein 5.3 g/dL (6.3-8.2)
[2017-06-18 17:25] LABS: Creatine Kinase 102 U/L (55-170)
[2017-06-18 17:26] LABS: VBG PH 7.41 (7.31-7.41)
[2017-06-18 17:27] LABS: Glucose 48 mg/dL (74-99)
[2017-06-18 17:30] LABS: Glucose,Whole Blood 101 mg/dL (75-99)
[2017-06-18 17:36] LABS: Partial Thromboplastin Time 17.5 sec (22.0-30.0)
[2017-06-18 17:37] LABS: Troponin I <0.012 ng/mL (0.000-0.034)
--- NOTE | 2017-06-18 17:41 | ED ---
General Adult HPI - General Chief complaint: Recheck/Abnormal Lab/Rx Stated complaint: Abnormal labs Time Seen by Provider: 06/18/17 16:01 Source: patient, RN notes reviewed, old records reviewed Mode of arrival: ambulatory Limitations: no limitations - History of Present Illness Initial comments: This is a 31-year-old male the ER for evaluation. Patient does say for evaluation of multiple complaints, he was scheduled to have outpatient lumbar puncture for evaluation of possible intracranial process, patient unable to have test secondary to elevated blood sugar elevated blood pressure and pale skin. Patient had outpatient lab draw that showed low hemoglobin, sent the ER for evaluation regarding significantly low hemoglobin patient denies any real significant complaints occasional back pain but no other issues - Related Data Home Medications Medication Instructions Recorded Confirmed Insulin Aspart [NovoLOG See Protocol SQ AC-TID 01/28/17 06/18/17 (formulary)] Insulin Aspart [NovoLOG 1 dose SQ AC-TID 05/28/17 06/18/17 (formulary)] Aspirin EC [Ecotrin Low Dose] 81 mg PO HS 06/17/17 06/18/17 Insulin Glargine,Hum.rec.anlog 8 units INJ HS 06/17/17 06/18/17 [Toujeo Solostar] Insulin Glargine,Hum.rec.anlog 10 - 16 unit SQ HS 06/18/17 06/18/17 [Lantus Solostar] Previous Rx's Medication Instructions Recorded Atorvastatin Calcium [Lipitor] 10 mg PO HS #30 tab 05/30/17 Allergies Allergy/AdvReac Type Severity Reaction Status Date / Time No Known Allergies Allergy Verified 06/18/17 16:15 Review of Systems ROS Statement: Those systems with pertinent positive or pertinent negative responses have been documented in the HPI. ROS Other: All systems not noted in ROS Statement are negative. Past Medical History Past Medical History: Diabetes Mellitus, Eye Disorder Additional Past Medical History / Comment(s): IDDM type I, DKA, CKD stage III, anemia, bilateral cataracts, bilateral eye pain since laser surgery April 2017 due to retinal bleeds and since has had increased difficulty with vision-saw Dr. Renteria (opthamologist) and states he was told it could be neurological. History of Any Multi-Drug Resistant Organisms: None Reported Past Surgical History: Hernia Repair Additional Past Surgical History / Comment(s): 04/2017 bilateral laser eye surgery for retinal bleeds unsuccessful Past Anesthesia/Blood Transfusion Reactions: No Reported Reaction Past Psychological History: No Psychological Hx Reported Smoking Status: Current every day smoker Past Alcohol Use History: Rare Past Drug Use History: None Reported - Past Family History Father Family Medical History: No Reported History Additional Family Medical History / Comment(s): Father is healthy Mother Family Medical History: No Reported History Additional Family Medical History / Comment(s): Mother is healthy. General Exam Limitations: no limitations General appearance: alert, in no apparent distress Head exam: Present: atraumatic, normocephalic, normal inspection Eye exam: Present: normal appearance, PERRL, EOMI. Absent: scleral icterus, conjunctival injection, periorbital swelling ENT exam: Present: normal exam, mucous membranes moist Neck exam: Present: normal inspection. Absent: tenderness, meningismus, lymphadenopathy Respiratory exam: Present: normal lung sounds bilaterally. Absent: respiratory distress, wheezes, rales, rhonchi, stridor Cardiovascular Exam: Present: regular rate, normal rhythm, normal heart sounds. Absent: systolic murmur, diastolic murmur, rubs, gallop, clicks GI/Abdominal exam: Present: soft, normal bowel sounds. Absent: distended, tenderness, guarding, rebound, rigid Extremities exam: Present: normal inspection, full ROM, normal capillary refill. Absent: tenderness, pedal edema, joint swelling, calf tenderness Back exam: Present: normal inspection Neurological exam: Present: alert, oriented X3, CN II-XII intact Psychiatric exam: Present: normal affect, normal mood Skin exam: Present: warm, dry, intact, normal color. Absent: rash Course Vital Signs 06/18/17 06/18/17 15:43 18:09 Temperature 98.6 F Pulse Rate 85 89 Respiratory 18 116 H Rate Blood Pressure 131/82 140/76 O2 Sat by Pulse 98 99 Oximetry Medical Decision Making - Medical Decision Making 31 male the ER for evaluation of weakness, fatigue, anemia, headaches, eye pain. Severe diabetes. Patient will be admitted for continued evaluation of acute on chronic disease - Lab Data Result diagrams: 06/18/17 16:45 06/18/17 16:45 Lab Results 06/18/17 06/18/17 06/18/17 Range/Units 16:45 16:45 16:45 WBC (3.8-10.6) k/uL RBC (4.30-5.90) m/uL Hgb (13.0-17.5) gm/dL Hct (39.0-53.0) % MCV (80.0-100.0) fL MCH (25.0-35.0) pg MCHC (31.0-37.0) g/dL RDW (11.5-15.5) % Plt Count (150-450) k/uL Neutrophils % % Lymphocytes % % Monocytes % % Eosinophils % % Basophils % % Neutrophils # (1.3-7.7) k/uL Lymphocytes # (1.0-4.8) k/uL Monocytes # (0-1.0) k/uL Eosinophils # (0-0.7) k/uL Basophils # (0-0.2) k/uL Hyperchromasia PT (9.0-12.0) sec INR (<1.2) APTT (22.0-30.0) sec VBG pH (7.31-7.41) VBG pCO2 (37-51) mmHg VBG HCO3 (24-28) mmol/L Sodium 143 (137-145) mmol/L Potassium 3.8 (3.5-5.1) mmol/L Chloride 102 (98-107) mmol/L Carbon Dioxide 33 H (22-30) mmol/L Anion Gap 8 mmol/L BUN 25 H (9-20) mg/dL Creatinine 2.10 H (0.66-1.25) mg/dL Est GFR (CKD-EPI)AfAm 47 (>60 ml/min/1.73 sqM) Est GFR (CKD-EPI)NonAf 41 (>60 ml/min/1.73 sqM) Glucose 48 L* (74-99) mg/dL POC Glucose (mg/dL) (75-99) mg/dL POC Glu Tree Sapper ID Plasma Lactic Acid [place] (0.7-2.0) mmol/L Calcium 8.6 (8.4-10.2) mg/dL Phosphorus 4.5 (2.5-4.5) mg/dL Magnesium 2.1 (1.6-2.3) mg/dL Total Bilirubin 0.6 (0.2-1.3) mg/dL AST 94 H (17-59) U/L ALT 93 H (21-72) U/L Alkaline Phosphatase 139 H (38-126) U/L Total Creatine Kinase 102 (55-170) U/L CK-MB (CK-2) 1.9 (0.0-2.4) ng/mL CK-MB (CK-2) Rel Index 1.9 Troponin I <0.012 (0.000-0.034) ng/mL Total Protein 5.3 L (6.3-8.2) g/dL Albumin 2.9 L (3.5-5.0) g/dL TSH 2.370 (0.465-4.680) mIU/L Urine Color Urine Appearance (Clear) Urine pH (5.0-8.0) Ur Specific [place] (1.001-1.035) Urine Protein (Negative) Urine Glucose (UA) (Negative) Urine Ketones (Negative) Urine Blood (Negative) Urine Nitrite (Negative) Urine Bilirubin (Negative) Urine Urobilinogen (<2.0) mg/dL Ur Leukocyte Esterase (Negative) Urine RBC (0-5) /hpf Urine WBC (0-5) /hpf Hyaline Casts (0-2) /lpf Acetone, Qual Negative (Negative) Blood Type A Positive Blood Type Recheck CABO Indicated Antibody Screen NEGATIVE Spec Expiration Date 06/21/2017234406/18/17 06/18/17 06/18/17 Range/Units 16:45 16:45 16:45 WBC 6.5 (3.8-10.6) k/uL RBC 2.72 L (4.30-5.90) m/uL Hgb 7.9 L (13.0-17.5) gm/dL Hct 22.0 L (39.0-53.0) % MCV 80.7 (80.0-100.0) fL MCH 29.1 (25.0-35.0) pg MCHC 36.1 (31.0-37.0) g/dL RDW 14.5 (11.5-15.5) % Plt Count 112 L (150-450) k/uL Neutrophils % 67 % Lymphocytes % 24 % Monocytes % 5 % Eosinophils % 3 % Basophils % 0 % Neutrophils # 4.4 (1.3-7.7) k/uL Lymphocytes # 1.6 (1.0-4.8) k/uL Monocytes # 0.3 (0-1.0) k/uL Eosinophils # 0.2 (0-0.7) k/uL Basophils # 0.0 (0-0.2) k/uL Hyperchromasia Slight PT 9.4 (9.0-12.0) sec INR 0.9 (<1.2) APTT 17.5 L (22.0-30.0) sec VBG pH (7.31-7.41) VBG pCO2 (37-51) mmHg VBG HCO3 (24-28) mmol/L Sodium (137-145) mmol/L Potassium (3.5-5.1) mmol/L Chloride (98-107) mmol/L Carbon Dioxide (22-30) mmol/L Anion Gap mmol/L BUN (9-20) mg/dL Creatinine (0.66-1.25) mg/dL Est GFR (CKD-EPI)AfAm (>60 ml/min/1.73 sqM) Est GFR (CKD-EPI)NonAf (>60 ml/min/1.73 sqM) Glucose (74-99) mg/dL POC Glucose (mg/dL) (75-99) mg/dL POC Glu Tree Sapper ID Plasma Lactic Acid [place] 0.7 (0.7-2.0) mmol/L Calcium (8.4-10.2) mg/dL Phosphorus (2.5-4.5) mg/dL Magnesium (1.6-2.3) mg/dL Total Bilirubin (0.2-1.3) mg/dL AST (17-59) U/L ALT (21-72) U/L Alkaline Phosphatase (38-126) U/L Total Creatine Kinase (55-170) U/L CK-MB (CK-2) (0.0-2.4) ng/mL CK-MB (CK-2) Rel Index Troponin I (0.000-0.034) ng/mL Total Protein (6.3-8.2) g/dL Albumin (3.5-5.0) g/dL TSH (0.465-4.680) mIU/L Urine Color Urine Appearance (Clear) Urine pH (5.0-8.0) Ur Specific [place] (1.001-1.035) Urine Protein (Negative) Urine Glucose (UA) (Negative) Urine Ketones (Negative) Urine Blood (Negative) Urine Nitrite (Negative) Urine Bilirubin (Negative) Urine Urobilinogen (<2.0) mg/dL Ur Leukocyte Esterase (Negative) Urine RBC (0-5) /hpf Urine WBC (0-5) /hpf Hyaline Casts (0-2) /lpf Acetone, Qual (Negative) Blood Type Blood Type Recheck Antibody Screen Spec Expiration Date 06/18/17 06/18/17 06/18/17 Range/Units 16:45 17:03 17:13 WBC (3.8-10.6) k/uL RBC (4.30-5.90) m/uL Hgb (13.0-17.5) gm/dL Hct (39.0-53.0) % MCV (80.0-100.0) fL MCH (25.0-35.0) pg MCHC (31.0-37.0) g/dL RDW (11.5-15.5) % Plt Count (150-450) k/uL Neutrophils % % Lymphocytes % % Monocytes % % Eosinophils % % Basophils % % Neutrophils # (1.3-7.7) k/uL Lymphocytes # (1.0-4.8) k/uL Monocytes # (0-1.0) k/uL Eosinophils # (0-0.7) k/uL Basophils # (0-0.2) k/uL Hyperchromasia PT (9.0-12.0) sec INR (<1.2) APTT (22.0-30.0) sec VBG pH 7.41 (7.31-7.41) VBG pCO2 51 (37-51) mmHg VBG HCO3 31 H (24-28) mmol/L Sodium (137-145) mmol/L Potassium (3.5-5.1) mmol/L Chloride (98-107) mmol/L Carbon Dioxide (22-30) mmol/L Anion Gap mmol/L BUN (9-20) mg/dL Creatinine (0.66-1.25) mg/dL Est GFR (CKD-EPI)AfAm (>60 ml/min/1.73 sqM) Est GFR (CKD-EPI)NonAf (>60 ml/min/1.73 sqM) Glucose (74-99) mg/dL POC Glucose (mg/dL) 52 L (75-99) mg/dL POC Glu Tree Sapper ID Jacquelyn Aranda Plasma Lactic Acid [place] (0.7-2.0) mmol/L Calcium (8.4-10.2) mg/dL Phosphorus (2.5-4.5) mg/dL Magnesium (1.6-2.3) mg/dL Total Bilirubin (0.2-1.3) mg/dL AST (17-59) U/L ALT (21-72) U/L Alkaline Phosphatase (38-126) U/L Total Creatine Kinase (55-170) U/L CK-MB (CK-2) (0.0-2.4) ng/mL CK-MB (CK-2) Rel Index Troponin I (0.000-0.034) ng/mL Total Protein (6.3-8.2) g/dL Albumin (3.5-5.0) g/dL TSH (0.465-4.680) mIU/L Urine Color Yellow Urine Appearance Clear (Clear) Urine pH 7.0 (5.0-8.0) Ur Specific [place] 1.010 (1.001-1.035) Urine Protein 3+ H (Negative) Urine Glucose (UA) 4+ H (Negative) Urine Ketones Negative (Negative) Urine Blood Moderate H (Negative) Urine Nitrite Negative (Negative) Urine Bilirubin Negative (Negative) Urine Urobilinogen <2.0 (<2.0) mg/dL Ur Leukocyte Esterase Negative (Negative) Urine RBC 23 H (0-5) /hpf Urine WBC 1 (0-5) /hpf Hyaline Casts 15 H (0-2) /lpf Acetone, Qual (Negative) Blood Type Blood Type Recheck Antibody Screen Spec Expiration Date 06/18/17 Range/Units 17:28 WBC (3.8-10.6) k/uL RBC (4.30-5.90) m/uL Hgb (13.0-17.5) gm/dL Hct (39.0-53.0) % MCV (80.0-100.0) fL MCH (25.0-35.0) pg MCHC (31.0-37.0) g/dL RDW (11.5-15.5) % Plt Count (150-450) k/uL Neutrophils % % Lymphocytes % % Monocytes % % Eosinophils % % Basophils % % Neutrophils # (1.3-7.7) k/uL Lymphocytes # (1.0-4.8) k/uL Monocytes # (0-1.0) k/uL Eosinophils # (0-0.7) k/uL Basophils # (0-0.2) k/uL Hyperchromasia PT (9.0-12.0) sec INR (<1.2) APTT (22.0-30.0) sec VBG pH (7.31-7.41) VBG pCO2 (37-51) mmHg VBG HCO3 (24-28) mmol/L Sodium (137-145) mmol/L Potassium (3.5-5.1) mmol/L Chloride (98-107) mmol/L Carbon Dioxide (22-30) mmol/L Anion Gap mmol/L BUN (9-20) mg/dL Creatinine (0.66-1.25) mg/dL Est GFR (CKD-EPI)AfAm (>60 ml/min/1.73 sqM) Est GFR (CKD-EPI)NonAf (>60 ml/min/1.73 sqM) Glucose (74-99) mg/dL POC Glucose (mg/dL) 101 H (75-99) mg/dL POC Glu Tree Sapper ID [facility] Jacquelyn Plasma Lactic Acid [place]aine (0.7-2.0) mmol/L Calcium (8.4-10.2) mg/dL Phosphorus (2.5-4.5) mg/dL Magnesium (1.6-2.3) mg/dL Total Bilirubin (0.2-1.3) mg/dL AST (17-59) U/L ALT (21-72) U/L Alkaline Phosphatase (38-126) U/L Total Creatine Kinase (55-170) U/L CK-MB (CK-2) (0.0-2.4) ng/mL CK-MB (CK-2) Rel Index Troponin I (0.000-0.034) ng/mL Total Protein (6.3-8.2) g/dL Albumin (3.5-5.0) g/dL TSH (0.465-4.680) mIU/L Urine Color Urine Appearance (Clear) Urine pH (5.0-8.0) Ur Specific [place] (1.001-1.035) Urine Protein (Negative) Urine Glucose (UA) (Negative) Urine Ketones (Negative) Urine Blood (Negative) Urine Nitrite (Negative) Urine Bilirubin (Negative) Urine Urobilinogen (<2.0) mg/dL Ur Leukocyte Esterase (Negative) Urine RBC (0-5) /hpf Urine WBC (0-5) /hpf Hyaline Casts (0-2) /lpf Acetone, Qual (Negative) Blood Type Blood Type Recheck Antibody Screen Spec Expiration Date Disposition Clinical Impression: Acute kidney injury, Labile blood glucose, Weak, Anemia Disposition: ADMITTED IP TO THIS [facility] Condition: Fair Is patient prescribed a controlled substance at d/c from ED?: No Referrals: Sahra Hurtado MD [Primary Care Provider] - 1-2 days
[2017-06-18 18:14] LABS: Creatine Kinase MB 1.9 ng/mL (0.0-2.4)
[2017-06-18] MEDS ORDERED: SODIUM CHLORIDE 0.9% 1,000 ML IV ONE (18:39)
[2017-06-18 21:41] LABS: Glucose,Whole Blood 181 mg/dL (75-99)
[2017-06-18] MEDS ORDERED: INSULIN DETEMIR 100 UNIT/ML 10 ML VIAL SQ SCH (22:30)
[2017-06-18 23:00] LABS: Glucose,Whole Blood 310 mg/dL (75-99)
[2017-06-18] MEDS: INSULIN ASPART 100 UNIT/ML 1 ML 10 ML VIAL SQ SCH (23:05)
[2017-06-18] MEDS: ATORVASTATIN 10 MG TAB PO SCH (23:52)
--- NOTE | 2017-06-19 00:52 | HP ---
HISTORY AND PHYSICAL CHIEF COMPLAINTS: Abnormal labs. HISTORY OF PRESENT ILLNESS: This 31-year-old gentleman with a past medical history of diabetes, anxiety disorder, DKA, chronic kidney stage 3, being followed by Dr. Hutrado in the outpatient setting was recently admitted to [facility] with possible TIA of the right side of the body. The patient was in renal failure. Stroke was considered at that point. Subsequently later and outpatient _ was planned. Today at the time of lumbar puncture, the patient had multiple abnormalities including low platelets, high blood pressure and high blood sugars. The patient was sent to the emergency room and was admitted for further evaluation and treatment and was admitted for further evaluation and treatment. Platelets were found to be 112. Blood sugars are fluctuating. There is no history of fever, rigors. No headache, loss of consciousness. Hemoglobin was also found to be 7.9 and baseline was 15.9. The creatinine is 2.10. PAST MEDICAL HISTORY: Diabetes, anxiety disorder, chronic kidney disease, anemia, ketoacidosis, cataracts. MEDICATIONS: Prior to admission: 1. Lantus 10-16 units subcu q.h.s. 2. 80 units q.h.s. 3. NovoLog t.i.d. 4. Lipitor 10 mg q.h.s. 5. Ecotrin 81 mg q.h.s. ALLERGIES: None. FAMILY HISTORY: No history of heart disease or strokes in the family. SOCIAL HISTORY: History of smoking. 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 REVIEW OF SYSTEMS: ENT: No diminished hearing. Diminished vision present. CARDIOVASCULAR SYSTEM: No angina. RESPIRATIONS: No cough or hemoptysis. GI: As mentioned earlier. : As mentioned earlier. NERVOUS SYSTEM: As mentioned earlier. MUSCULOSKELETAL: As mentioned earlier. HEMATOLOGY/ONCOLOGY: No history of anemia. ENDOCRINE: neg CONSTITUTIONAL: As mentioned earlier. DERMATOLOGY: Negative. RHEUMATOLOGY: Negative. PSYCHIATRY: As mentioned earlier. PHYSICAL EXAM: Patient is alert and oriented x3. Pulse 89, blood pressure 140/73, respiration 16, temperature 98.4, pulse ox 99% on room air. HEENT: Pupils equal. Conjunctivae pale. Facial puffiness present. Oral mucosa is dry. Neck is no jugular venous distention. No carotid bruit. No lymph node enlargement. CARDIOVASCULAR SYSTEM: S1, S2 normal. Ejection systolic murmur present. RESPIRATORY SYSTEM: Breath sounds diminished at the bases. Scattered rhonchi. No crackles. ABDOMEN: Soft, nontender. No mass palpable. No hepatosplenomegaly. LEGS: Bilateral leg edema present. NERVOUS SYSTEM: Higher functions as mentioned. Cranial nerves 2 through 12 are grossly intact. Moves all 4 limbs. No sensory dysfunction. SKIN: No ulcer, rash, bleeding. LYMPHATICS: No lymph node palpable in neck, axillae or groin. LABS: WBC 6.2, hemoglobin 7.9, glucose 140, creatinine 2.10. ASSESSMENT: 1. Right-sided numbness for evaluation, rule out multiple sclerosis. 2. Anemia normocytic, rule out anemia of chronic disease. 3. Thrombocytopenia for evaluation. 4. Acute renal failure for evaluation. 5. Rule out vasculitis. 6. Rule out nephrotic syndrome. 7. Diabetes type 2. 8. History of diabetic retinopathy. 9. Diabetic ketoacidosis history. 10.Chronic atrial fibrillation. 11.History of acute diabetic nephropathy. 12.Bilateral cataracts. 13.History of hernia surgery. RECOMMENDATIONS AND DISCUSSION: In this 31-year-old gentleman who presented with multiple complex medical issues we will monitor the patient closely. Continue the current management and continue with symptomatic treatment. We will initiate vasculitic workup and Nephrology consultation Hematology/Oncology consultation with Dr. Ferrera. Overall prognosis guarded because of multiple complex medical issues and consultation symptoms. I would also try to obtain a lumbar puncture once the patient is stabilized to evaluate the neurological features also. A brain CT scan done today showed only pansinusitis and the patient also had a brain MRI last month, which showed nonspecific white matter changes and no evidence of any cerebellar lesions and left-sided mastoiditis. As mentioned earlier we will resume the home medications. Prognosis guarded. Further recommendations to follow. MMODL / IJN: [id number] / MTDD
[2017-06-19 07:04] LABS: Glucose,Whole Blood 196 mg/dL (75-99)
[2017-06-19] MEDS ORDERED: INSULIN ASPART 100 UNIT/ML 1 ML 10 ML VIAL SQ SCH (07:30)
[2017-06-19 08:45] LABS: Basophils % (A) 0 %; Eosinophils # (A) 0.2 k/uL (0-0.7); Eosinophils % (A) 4 %; HCT 21.1 % (39.0-53.0); HGB 7.4 gm/dL (13.0-17.5); Lymphocytes # (A) 1.7 k/uL (1.0-4.8); Lymphocytes % (A) 30 %; MCH 29.3 pg (25.0-35.0); MCHC 35.2 g/dL (31.0-37.0); MCV 83.2 fL (80.0-100.0); Monocytes # (A) 0.3 k/uL (0-1.0); Monocytes % (A) 5 %; Neutrophils # (A) 3.3 k/uL (1.3-7.7); Neutrophils % (A) 60 %; Platelet Count 109 k/uL (150-450); RBC 2.54 m/uL (4.30-5.90); RDW 14.6 % (11.5-15.5); WBC 5.6 k/uL (3.8-10.6)
[2017-06-19 09:02] LABS: Albumin 2.5 g/dL (3.5-5.0); Calcium 7.9 mg/dL (8.4-10.2); Potassium 4.4 mmol/L (3.5-5.1); Total Bilirubin 0.5 mg/dL (0.2-1.3); Total Protein 4.7 g/dL (6.3-8.2)
[2017-06-19] MEDS: INSULIN ASPART 100 UNIT/ML 1 ML 10 ML VIAL SQ SCH ×6 (09:05→20:51)
[2017-06-19 10:33] VITALS: BMI 19.1
[2017-06-19 10:39] LABS: Spherocytes Present
[2017-06-19 12:38] LABS: Reticulocyte % 5.5 % (0.5-2.0)
[2017-06-19 12:44] LABS: Glucose,Whole Blood 199 mg/dL (75-99)
--- NOTE | 2017-06-19 14:26 | CONS ---
CONSULTATION REASON FOR CONSULTATION: Renal failure. HISTORY OF PRESENT ILLNESS: The patient is a 31-year-old male with type 1 diabetes who was admitted to the hospital for a lumbar puncture which was being done for workup for poor vision to rule out any underlying neurological condition. The patient was found to have severely low blood sugar at 48 and his platelet count was low at 109,000 and therefore he was admitted. Serum creatinine was also elevated at 2.1 mg/dL. Review of previous labs shows a serum creatinine at 1.17 in January of 2017, otherwise it had been at 1.5 and 1.7 in May of this year. The patient states he has been voiding well. He denies use of any nonsteroidal anti-inflammatory agents prior to admission. No MIKI inhibitors on board at home. Currently, patient is maintained on IV fluids. His blood pressure was not low on admission. He states he has been voiding well. PAST MEDICAL HISTORY: Type 1 diabetes, declining vision, most likely secondary to diabetic retinopathy, being followed by Ophthalmology. Anxiety disorder, cataracts, anemia. MEDICATIONS: Prior to admission include Lipitor, aspirin, insulin. SOCIAL HISTORY: Positive for smoking. No history of drug abuse or alcohol abuse. REVIEW OF SYSTEMS: As per HPI. Other systems negative. PHYSICAL EXAMINATION: On examination, blood pressure was 156/98 early this morning with over 91, heart rate 88 per minute. Patient is afebrile. Examination of the heart S1, S2. Examination of the lungs bilateral breath sounds are heard. Abdomen is soft, nontender. Exam of lower extremities showed ankle edema 1+ bilaterally. QA AUDITOR exam shows patient is moving all 4 extremities. No focal deficits are noted. Detailed QA AUDITOR exam is not performed. LABS: Sodium 142, potassium 4.4, serum creatinine 1.84, BUN 24, hemoglobin 7.4 g/dL. UA shows 3+ protein, 4+ glucose, , 1 RBCs, 23. ASSESSMENT: 1. Acute kidney injury, possibly prerenal, currently slightly improved. His creatinine down to 1.8 from 2.1. However, patient does have some lower extremity edema and we should decrease the IV fluids and avoid aggressive hydration. 2. Chronic kidney disease with evidence of proteinuria. We will quantify the proteinuria. Etiology is most likely diabetic nephropathy. I will check serologies as well to rule out any other underlying etiology. His creatinine was as low as 1.17 in January of 2017 and 0.8 in September of 2016. There are no nephrotoxic agents on board. We will check an ultrasound of the kidneys as well. 3. Type 1 diabetes, maintained on insulin. 4. Concentric left ventricular hypertrophy with ejection fraction 55-60%, maintained on echocardiogram done on May 30, 2017. 5. Thrombocytopenia. Patient has been seen by hematology previously. Consult is currently pending. PLAN: 1. Check baseline serologies. 2. Agree with quantification of proteinuria. 3. Decrease IV fluids. 4. Repeat labs in a.m. 5. Avoid nephrotoxic agents. 6. Check ultrasound of the kidneys. 7. Thank you for this consultation. We will continue to follow the patient with you during his hospitalization. MMODL / IJN: [id number] /
--- NOTE | 2017-06-19 14:54 | US ---
EXAMINATION TYPE: US kidneys/renal and bladder DATE OF EXAM: 06/19/2017 COMPARISON: US CLINICAL HISTORY: Renal Failure; diabetic, low hemoglobin and platelets EXAM MEASUREMENTS: Right Kidney: 11.6 x 6.0 x 5.1cm Left Kidney: 11.0 x 4.4 x 5.4cm Post Void Residual Volume: not assessed on inpatient Right Kidney: No hydronephrosis or masses seen Left Kidney: No hydronephrosis or masses seen Bladder: wnl Bilateral Jets seen: prominent right ureteral jet was seen and very faint left jet was seen There is no evidence for hydronephrosis at this point in time. No nephrolithiasis is seen. No kristan s are identified. The urinary bladder is anechoic. Bilateral ureteral jets are identified the left jet is less well-seen than right jet on images saved. IMPRESSION: No hydronephrosis is evident bilaterally.
[2017-06-19] MEDS ORDERED: ONDANSETRON 4 MG/2 ML VIAL IVP PRN (15:30)
[2017-06-19 16:54] LABS: Iron Saturation 28.23 (15.00-50.00)
[2017-06-19 17:02] LABS: Folate, Serum 8.2 ng/mL
[2017-06-19 17:05] LABS: Rheumatoid Factor 4 IU/mL (0-15)
[2017-06-19 17:40] LABS: Glucose,Whole Blood 226 mg/dL (75-99)
[2017-06-19 18:12] LABS: DNA Double-Stranded NEGATIVE (NEGATIVE)
[2017-06-19 18:13] LABS: HIV AB P24 Non-Reactive (Non-Reactive); HIV P24 AG Non-Reactive (Non-Reactive)
[2017-06-19 20:37] LABS: Glucose,Whole Blood 122 mg/dL (75-99)
--- NOTE | 2017-06-19 20:43 | PN ---
PROGRESS NOTE DATE OF SERVICE: 06/19/2017 This 31-year-old gentleman admitted with multiple abnormal labs is being evaluated for possible vasculitis. The patient was also seen by Dr. Peck also. No chest pain. No palpitations. Patient had generalized edema and patient also had anemia also. The hemoglobin today is 7.4, and creatinine is 1.84. The ALT is elevated to 840. ESR and CRP is also elevated. Other vasculitic findings are pending at this time. The 24 hour urine protein is being checked also. PAST MEDICAL HISTORY: Reviewed. REVIEW OF SYSTEMS: CARDIOVASCULAR: No angina. RESPIRATORY: As mentioned earlier. GI: No nausea. : As mentioned. NERVOUS SYSTEM: No numbness or weakness. CURRENT MEDICATIONS: Lipitor 10 mg q.h.s., NovoLog scale, Levemir 80 units subcu q.h.s., Zofran. PHYSICAL EXAM: Patient is alert, oriented x3. Pulse 101, blood pressure 150/106, respirations 16, temperature 97.7, pulse ox 100% on room air. HEENT: Conjunctivae normal. NECK: No jugular venous distention. CARDIOVASCULAR: S1, S2. RESPIRATORY: Breath sounds diminished in the bases. A few scattered rhonchi and crackles. ABDOMEN: Soft, nontender. No mass palpable. LEGS: Bilateral leg edema. NERVOUS SYSTEM: Diffusely weak. LABS: At this time show WBC 5.2, hemoglobin 7.4 and sodium 140, potassium 4.4, creatinine is 1.84. ASSESSMENT: 1. Right-sided numbness evaluation rule out multiple sclerosis. 2. Anemia normocytic, rule out anemia of chronic disease. 3. Rule out vasculitis. 4. Thrombocytopenia for evaluation. 5. Acute renal failure, rule out diabetic nephropathy. 6. Rule out nephrotic syndrome. 7. Diabetes mellitus type 1. 8. History of diabetic retinopathy. 9. Diabetic ketoacidosis history. 10.Chronic atrial fibrillation. 11.History of acute diabetic nephropathy. 12.Bilateral cataracts. 13.History of hernia surgery. RECOMMENDATIONS AND DISCUSSION: I recommend to continue current medical management. Await results of the multiple evaluations as mentioned earlier. I would also recommend consultation with Dr. Corral to rule the possibility of vasculitis. Otherwise, serologies are pending at this time. Dr. Peck's input appreciated. Prognosis guarded because of multiple complex medical issues. Further recommendations to follow. MMODL / IJN: [id number] /
[2017-06-19] MEDS: ATORVASTATIN 10 MG TAB PO SCH (20:49)
[2017-06-19] MEDS ORDERED: INSULIN DETEMIR 100 UNIT/ML 10 ML VIAL SQ SCH (21:00)
[2017-06-19 22:49] VITALS: RESP 18
--- NOTE | 2017-06-19 22:55 | P.CONS ---
History of Present Illness - Reason for Consult Consult date: 06/19/17 Anemia and thrombocytopenia - History of Present Illness Mr Hernandez is a pleasant WM, with multiple medical problems, admitted with c/o left sided weakness and numbness, which he woke up with. The symptoms had resolved by the time of admission. His blood sugar was in the 500 range, with fluctuation into the 50 range. He was thus admitted for further management. On admission, his Cr was significantly higher than baseline at 2.4 ( baseline around 1-1.2). His Hgb was in the 7-8 range, and plt in the 90-115K range. Consult was thus placed for further evaluation and recommendations. He denied any prior h/o blood related problems, obvious bleeding or diarrhea. Review of prior labs in the EMR show a decline in Hgb and plt gradually since . He had an admission for transient rt sided weakness a week ago, with carotid dopplers and MRI negative. Review of Systems Constitutional: Reports poor appetite, Reports weakness Eyes: denies blurred vision, denies pain Ears: deny: decreased hearing, ear discharge, earache, tinnitus Ears, nose, mouth and throat: Denies headache, Denies sore throat Cardiovascular: Denies chest pain, Denies shortness of breath Respiratory: Denies cough Gastrointestinal: Denies abdominal pain, Denies diarrhea, Denies nausea, Denies vomiting Genitourinary: Reports as per HPI Musculoskeletal: Reports muscle weakness Integumentary: Denies pruritus, Denies rash Neurological: Reports as per HPI, Reports paresthesias, Reports weakness Psychiatric: Denies anxiety, Denies depression Endocrine: Reports high blood sugars Hematologic/Lymphatic: Reports as per HPI Past Medical History Past Medical History: Diabetes Mellitus, Eye Disorder Additional Past Medical History / Comment(s): IDDM type I, DKA, CKD stage III, anemia, bilateral cataracts, bilateral eye pain since laser surgery April 2017 due to retinal bleeds and since has had increased difficulty with vision-saw Dr. Renteria (opthamologist) and states he was told it could be neurological. History of Any Multi-Drug Resistant Organisms: None Reported Past Surgical History: Hernia Repair Additional Past Surgical History / Comment(s): 04/2017 bilateral laser eye surgery for retinal bleeds unsuccessful Past Anesthesia/Blood Transfusion Reactions: No Reported Reaction Past Psychological History: No Psychological Hx Reported Additional Psychological History / Comment(s): Pt resides with his spouse. They have 3 cats. He is independent. 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 Smoking Status: Current every day smoker Past Alcohol Use History: Rare Additional Past Alcohol Use History / Comment(s): started smoking in 2001 down to 0.5 ppd. Past Drug Use History: None Reported - Past Family History Father Family Medical History: No Reported History Additional Family Medical History / Comment(s): Father is healthy Mother Family Medical History: No Reported History Additional Family Medical History / Comment(s): Mother is healthy. Medications and Allergies Home Medications Medication Instructions Recorded Confirmed Type Insulin Aspart [NovoLOG See Protocol SQ AC-TID 01/28/17 06/18/17 History (formulary)] Insulin Aspart [NovoLOG 1 dose SQ AC-TID 05/28/17 06/18/17 History (formulary)] Atorvastatin Calcium [Lipitor] 10 mg PO HS #30 tab 05/30/17 06/18/17 Rx Aspirin EC [Ecotrin Low Dose] 81 mg PO HS 06/17/17 06/18/17 History Insulin Glargine,Hum.rec.anlog 8 units INJ HS 06/17/17 06/18/17 History [Toujeo Solostar] Insulin Glargine,Hum.rec.anlog 10 - 16 unit SQ HS 06/18/17 06/18/17 History [Lantus Solostar] Allergies Allergy/AdvReac Type Severity Reaction Status Date / Time No Known Allergies Allergy Verified 06/18/17 16:15 Physical Exam Vitals: Vital Signs Temp Pulse Pulse Resp BP BP Pulse Ox 06/19/17 15:00 97.7 F 101 H 16 154/106 100 06/19/17 07:00 97.8 F 88 18 150/91 99 06/19/17 01:25 98.9 F 98 18 156/98 97 Intake and Output 06/19/17 06/19/17 06/19/17 06:59 14:59 22:59 Intake Total 500 100 Balance 500 100 Intake: Intake, IV Titration 100 Amount Sodium Chloride 0.9% 1, 100 000 ml @ 100 mls/hr IV . Q10H ONE Rx#:[id number] Oral 500 Other: # Voids 2 Weight 62.369 kg - Constitutional General appearance: no acute distress - EENT Eyes: EOMI, PERRLA ENT: hearing grossly normal, normal oropharynx - Neck Neck: no lymphadenopathy Thyroid: bilateral: normal size - Respiratory Respiratory: bilateral: CTA - Cardiovascular Rhythm: regular Heart sounds: normal: S1, S2 - Gastrointestinal General gastrointestinal: normal bowel sounds, soft - Integumentary Integumentary: normal - Neurologic Neurologic: CNII-XII intact - Musculoskeletal Musculoskeletal: generalized weakness, strength equal bilaterally - Psychiatric Psychiatric: A&O x's 3, appropriate affect, intact judgment & insight Results Results: peripheral smear requested. No significant schistocytes. Spherocytes noted CBC & Chem 7: 06/19/17 08:12 06/19/17 08:12 Labs: Abnormal Lab Results - Last 24 Hours (Table) 06/18/17 06/18/17 06/18/17 Range/Units 16:45 21:30 22:46 RBC 2.72 L (4.30-5.90) m/uL Hgb 7.9 L (13.0-17.5) gm/dL Hct 22.0 L (39.0-53.0) % Plt Count 112 L (150-450) k/uL ESR (0-15) mm/hr Retic Count (0.5-2.0) % Carbon Dioxide (22-30) mmol/L BUN (9-20) mg/dL Creatinine (0.66-1.25) mg/dL Glucose (74-99) mg/dL POC Glucose (mg/dL) 181 H 310 H (75-99) mg/dL Calcium (8.4-10.2) mg/dL Lactate Dehydrogenase (313-618) U/L Total Protein (6.3-8.2) g/dL Albumin (3.5-5.0) g/dL 06/19/17 06/19/17 06/19/17 Range/Units 07:03 08:12 08:12 RBC 2.54 L (4.30-5.90) m/uL Hgb 7.4 L (13.0-17.5) gm/dL Hct 21.1 L (39.0-53.0) % Plt Count 109 L (150-450) k/uL ESR 67 H (0-15) mm/hr Retic Count (0.5-2.0) % Carbon Dioxide (22-30) mmol/L BUN (9-20) mg/dL Creatinine (0.66-1.25) mg/dL Glucose (74-99) mg/dL POC Glucose (mg/dL) 196 H (75-99) mg/dL Calcium (8.4-10.2) mg/dL Lactate Dehydrogenase (313-618) U/L Total Protein (6.3-8.2) g/dL Albumin (3.5-5.0) g/dL 06/19/17 06/19/17 06/19/17 Range/Units 08:12 08:12 08:12 RBC (4.30-5.90) m/uL Hgb (13.0-17.5) gm/dL Hct (39.0-53.0) % Plt Count (150-450) k/uL ESR (0-15) mm/hr Retic Count 5.5 H (0.5-2.0) % Carbon Dioxide 32 H (22-30) mmol/L BUN 24 H (9-20) mg/dL Creatinine 1.84 H (0.66-1.25) mg/dL Glucose 142 H (74-99) mg/dL POC Glucose (mg/dL) (75-99) mg/dL Calcium 7.9 L (8.4-10.2) mg/dL Lactate Dehydrogenase 840 H (313-618) U/L Total Protein 4.7 L (6.3-8.2) g/dL Albumin 2.5 L (3.5-5.0) g/dL 06/19/17 06/19/17 06/19/17 Range/Units 12:24 17:37 20:36 RBC (4.30-5.90) m/uL Hgb (13.0-17.5) gm/dL Hct (39.0-53.0) % Plt Count (150-450) k/uL ESR (0-15) mm/hr Retic Count (0.5-2.0) % Carbon Dioxide (22-30) mmol/L BUN (9-20) mg/dL Creatinine (0.66-1.25) mg/dL Glucose (74-99) mg/dL POC Glucose (mg/dL) 199 H 226 H 122 H (75-99) mg/dL Calcium (8.4-10.2) mg/dL Lactate Dehydrogenase (313-618) U/L Total Protein (6.3-8.2) g/dL Albumin (3.5-5.0) g/dL Microbiology - Last 24 Hours (Table) 06/18/17 16:45 Urine Culture - Preliminary Urine,Voided Comments: carotid dopplers reviewed Chest x-ray: report reviewed US - abdomen: report reviewed MRI - head: report reviewed Assessment and Plan (1) Bicytopenia Narrative/Plan: The etiology is not immediately evident. He does not appear to have a microangiopathic process, with no schistocytes on the p/s and normal coags. His PE is unremarkable. - I will do a full cytopenia w/u with B12/folate/iron studies/PEP studies, hemolysis and auto immune markers ( as vasculitis is a reasonable concern). Cryoglobulins will also be checked. Further recommendations lesia be made accordingly - His counts are in a safe range currently. Renal function is improving. Continue to monitor while results are pending Current Visit: Yes Status: Acute Code(s): D75.89 - OTHER SPECIFIED DISEASES OF BLOOD AND BLOOD-FORMING ORGANS SNOMED Code(s): 152020008 Plan: Defer to the admitting service and other consultants for management of his other medical problems
[2017-06-20 06:21] VITALS: BP 159/102; PULSE 83; TEMP 97.8
[2017-06-20 07:08] LABS: Glucose,Whole Blood 214 mg/dL (75-99)
[2017-06-20 08:24] LABS: Basophils % (A) 0 %; Eosinophils # (A) 0.2 k/uL (0-0.7); Eosinophils % (A) 4 %; HCT 21.2 % (39.0-53.0); HGB 7.5 gm/dL (13.0-17.5); Hyperchromasia Slight; Lymphocytes # (A) 1.5 k/uL (1.0-4.8); Lymphocytes % (A) 29 %; MCH 29.5 pg (25.0-35.0); MCHC 35.6 g/dL (31.0-37.0); MCV 82.9 fL (80.0-100.0); Mean Platelet Volume 9.1; Monocytes # (A) 0.2 k/uL (0-1.0); Monocytes % (A) 4 %; Neutrophils # (A) 3.2 k/uL (1.3-7.7); Neutrophils % (A) 61 %; Platelet Count 100 k/uL (150-450); Poikilocytosis Slight; RBC 2.56 m/uL (4.30-5.90); RDW 14.5 % (11.5-15.5); WBC 5.3 k/uL (3.8-10.6)
[2017-06-20] MEDS: INSULIN ASPART 100 UNIT/ML 1 ML 10 ML VIAL SQ SCH ×2 (08:32)
[2017-06-20 08:46] LABS: Albumin 2.5 g/dL (3.5-5.0); Calcium 7.9 mg/dL (8.4-10.2); Potassium 4.2 mmol/L (3.5-5.1); Total Bilirubin 0.6 mg/dL (0.2-1.3); Total Protein 4.8 g/dL (6.3-8.2)
--- NOTE | 2017-06-20 12:57 | PN ---
PROGRESS NOTE The patient is seen for followup for chronic kidney disease. He was admitted to the hospital with anemia, low platelet count. There is no active bleeding noted. The patient was evaluated by Hematology. No plans for significant intervention at this time. The patient possibly has anemia of chronic disease as he does have renal insufficiency. He is maintained on IV fluids. Serum creatinine has decreased from 2.1 on admission to 1.6 today. PHYSICAL EXAMINATION: On examination, the patient is comfortable, awake, alert, oriented x3. Blood pressure is 159/102, heart rate 83 per minute. He is afebrile. EXAMINATION OF THE HEART: S1, S2. EXAMINATION OF THE LUNGS: Bilateral breath sounds are heard. Abdomen is soft, nontender. Examination of the lower extremities shows trace edema mainly in the ankles. LABS: Labs show sodium 140, potassium 4.2, BUN 21, serum creatinine 1.64, hemoglobin 7.5 g/dL. ASSESSMENT: 1. Acute kidney injury, most likely prerenal, currently improved. 2. Chronic kidney disease, most likely secondary to diabetic nephropathy. All serologies are currently negative. The patient will need quantification of proteinuria. He will also need followup as outpatient. 3. Anemia most likely anemia of chronic disease given the renal insufficiency. The patient may need to be placed on Procrit as outpatient. PLAN: Discontinue IV fluids. Encourage increased oral intake. Await the rest of the serologies. The patient will need follow up as outpatient. CECIL / GELY: [id number] /
[2017-06-20 13:18] LABS: Haptoglobin <8.0 mg/dL (31.2-198.0)
[2017-06-20 14:07] LABS: C-ANCA <1:20 Titer (<1:20); P-ANCA <1:20 Titer (<1:20)
--- NOTE | 2017-06-21 07:55 | DS ---
DISCHARGE SUMMARY DATE OF SERVICE: 06/20/2017. FINAL DIAGNOSES: 1. Right-sided numbness evaluation rule out multiple sclerosis. 2. Anemia normocytic, rule out anemia of chronic disease. 3. Rule out vasculitis. 4. Thrombocytopenia for evaluation. 5. Acute renal failure, rule out diabetic nephropathy and nephrotic syndrome. 6. Diabetes mellitus type 1. 7. History of diabetic retinopathy. 8. Diabetic ketoacidosis history. 9. Chronic atrial fibrillation. 10.History of bilateral cataracts. 11.History of hernia surgery. DISCHARGE DISPOSITION: The patient will be discharged stable condition with guarded prognosis. HISTORY OF PRESENT ILLNESS: This 31-year-old gentleman the past medical history of multiple medical problems was being evaluated for multiple sclerosis in the outpatient setting, but the patient was scheduled for outpatient lumbar puncture, but because of thrombocytopenia, the patient was withheld by Anesthesia. Patient admitted for further evaluation and treatment. Patient had multiple medical issues as listed above. The patient was seen by Dr. Peck and multiple evaluations for the vasculitis and nephritic syndrome is being ordered. Hemoglobin is 7.5, creatinine is 1.64 at this time. Albumin is 2.5. The JORGE screen was negative. Rheumatoid factor was also negative. P-ANCA, C-ANCA was also negative and urine 24 hour protein is pending at this time. Evaluation by Dr. Corral is also being planned in the outpatient setting. On exam, vital signs stable. Cardiovascular: S1, S2. Abdomen: Soft. Nervous system: Facial puffiness is present. Outpatient follow up with Dr. Peck is being planned and outpatient Procrit is also being considered. DISCHARGE PLAN: 1. Diet is cardiac. 2. Activities limited until followup. 3. Follow up with Dr. Peck in 2 weeks. 4. Follow up with Dr. Corral in one week. 5. Follow with Dr. Hurtado as advised. 6. Follow with Dr. Ferrera as advised for thrombocytopenia. MEDICATIONS: 1. Ecotrin 81 mg q.h.s. 2. Lipitor 20 mg q.h.s. 3. NovoLog scale as before. 4. Lantus 8 units subcu q.h.s. 5. Lantus 10 to 16 units as before. 6. Multivitamins 1 p.o. daily. Once again the patient discharged in stable condition with guarded prognosis. MMODL / IJN: [id number] / MIHAELA
[2017-06-27 12:22] LABS: Cryoglobulin Absent (Absent)
== END 2017-06-20 11:41 | disposition home or self-care (01) ==
LOC: EC 15:05 → 4MS4W 18:39
PROVIDERS: ADMIT Hospitalist; ATTEND Hospitalist
DX: N17.9 Acute kidney failure, unspecified (principal); D69.6 Thrombocytopenia, unspecified; E10.649 Type 1 diabetes mellitus with hypoglycemia without coma; E10.22 Type 1 diabetes mellitus with diabetic chronic kidney disease; N18.3 Chronic kidney disease, stage 3 (moderate); D63.8 Anemia in other chronic diseases classified elsewhere; E10.319 Type 1 diabetes mellitus with unspecified diabetic retinopathy without macular edema; H26.9 Unspecified cataract; H57.13 Ocular pain, bilateral; R53.1 Weakness; F41.9 Anxiety disorder, unspecified; I48.2 Chronic atrial fibrillation; R03.0 Elevated blood-pressure reading, without diagnosis of hypertension; R20.0 Anesthesia of skin; R60.1 Generalized edema; R74.8 Abnormal levels of other serum enzymes; F17.210 Nicotine dependence, cigarettes, uncomplicated; Z79.4 Long term (current) use of insulin; Z79.82 Long term (current) use of aspirin; Z79.899 Other long term (current) drug therapy
CPT/HCPCS: 36415; 76770; 80053; 81001; 82009; 82550; 82553; 82585; 82595; 82607; 82668; 82728; 82746; 82803; 83010; 83540; 83550; 83605; 83615; 83735; 83921; 84100; 84443; 84484; 85025; 85045; 85610; 85652; 85730; 86038; 86140; 86225; 86255; 86431; 86850; 86900; 86901; 87086; 87390; 93005; 96361; 96374; 99285

== ENCOUNTER → 2017-07-08 | Day surgery (SDC) | payer MEDICAID ==
[2017-07-03 11:18] VITALS: BMI 19.6
[~2017-07-08] MED LIST changes: +LIDOCAINE 1% 20 ML VIAL (10MG/ML) FOR IV START INTRADERMA PRN; +LIDOCAINE 1% INJ 10MG/ML (20 ML MDV) ONE; +MIDAZOLAM 2 MG/2 ML VIAL IV PRN; +PROPOFOL 10 MG/ML 20 ML VIAL IV ONE
[2017-07-08 12:09] VITALS: RESP 16; TEMP 97.7
[2017-07-08 12:10] LABS: Glucose,Whole Blood 164 mg/dL (75-99)
[2017-07-08 13:14] LABS: Glucose,Whole Blood 157 mg/dL (75-99)
--- NOTE | 2017-07-08 13:17 | P.OP ---
Date of Procedure: 07/08/17 Preoperative Diagnosis: Anemia with iron deficiency Postoperative Diagnosis: 2 sigmoid polyps quite friable probably inflammatory Procedure(s) Performed: Colonoscopy and snare polypectomy 2 Anesthesia: MAC Surgeon: Cheng Mckay Estimated Blood Loss (ml): 0 Pathology: other (Sigmoid polyps 2) Condition: stable Disposition: same day Indications for Procedure: The patient is a 31-year-old white male who was found to be anemic recently. Does have a change in his bowel habits with alternating constipation and diarrhea. No overt bleeding. Colonoscopy was recommended and informed consent was obtained procedure is having been explained to him including potential complication particular bleeding and perforation. He understood and agree to proceed. EGD was performed by Dr. dowell and will be dictated by him. Operative Findings: 1 a minute sigmoid polyp at about 25 cm from the anal verge To a slightly larger somewhat inflammatory friable polyp of this 6-7 mm in diameter in the sigmoid colon at about 20 cm from the anal verge Description of Procedure: With the patient in the left lateral position rectal digital examination was normal. There were no palpable masses. No prostatic masses. The video colonoscope was inserted transanally and advanced all the way to the cecum which was entered without visualized. The ileocecal valve and appendiceal orifice were well seen. The mucosa were thoroughly examined. There were 2 polyps as described above both of which were removed completely with the snare cautery with good hemostasis. Remainder of the colon was unremarkable. There were no malignancies. Slight pallor the entire mucosal. The patient tolerated the procedure well without any evident complication. We will await the pathology report. We'll see him back in the office next week. May need referral to oncologist for anemia.
[2017-07-08 13:20] VITALS: BP 142/92; PULSE 79
--- NOTE | 2017-07-08 16:12 | P.OP ---
Date of Procedure: 07/08/17 Preoperative Diagnosis: Anemia Postoperative Diagnosis: Superficial prepyloric ulcer, gastritis Procedure(s) Performed: EGD with biopsy Anesthesia: MAC Surgeon: Nael Damon Estimated Blood Loss (ml): 5 Condition: stable Disposition: PACU Indications for Procedure: Patient is 31 and presents with anemia Description of Procedure: Patient was brought to the Endo suite placed in left lateral decubitus position underwent sedation per department of anesthesia he was prepped and draped in the usual sterile fashion timeout performed correct patient correct suture correct site was verified the endoscope was placed through the oropharynx down the esophagus with ease through the stomach and into the first and second portion of the duodenum no no abnormalities were noted in the duodenum the scope was slowly withdrawn to the stomach there is a superficial ulceration in the prepyloric region along with gastritis. This was biopsied. Biopsies taken to rule out H. pylori of the antrum. The scope was then retroflexed all head of the stomach were visualized no other abnormalities were noted no hiatal hernia was noted. Scope was withdrawn to the GE junction where there is mild inflammation and biopsy was taken. Scope was then slowly withdrawn through the esophagus no other abnormalities are noted patient are to procedure well no apparent complications the ulcer was not noted to be actively bleeding
== END | disposition home or self-care (01) ==
LOC: ORWHC2ENDO 10:50
PROVIDERS: ATTEND Surgery
DX: K29.50 Unspecified chronic gastritis without bleeding (principal); K21.0 Gastro-esophageal reflux disease with esophagitis; K25.9 Gastric ulcer, unspecified as acute or chronic, without hemorrhage or perforation; D12.5 Benign neoplasm of sigmoid colon; D50.9 Iron deficiency anemia, unspecified; K59.00 Constipation, unspecified; R19.7 Diarrhea, unspecified; N52.1 Erectile dysfunction due to diseases classified elsewhere; E10.65 Type 1 diabetes mellitus with hyperglycemia; E78.00 Pure hypercholesterolemia, unspecified; Z79.4 Long term (current) use of insulin; Z79.82 Long term (current) use of aspirin; Z79.899 Other long term (current) drug therapy; F17.200 Nicotine dependence, unspecified, uncomplicated
CPT/HCPCS: 88305; 45385; 43239; J2001; J2704

== ENCOUNTER → 2017-07-15 | Outpatient (CLI) | payer MEDICAID ==
[2017-07-15 08:12] LABS: Albumin 2.8 g/dL (3.5-5.0); Calcium 9.3 mg/dL (8.4-10.2); Potassium 4.9 mmol/L (3.5-5.1); Total Bilirubin 0.5 mg/dL (0.2-1.3); Total Protein 5.1 g/dL (6.3-8.2)
[2017-07-15 08:17] LABS: Basophils % (A) 1 %; Eosinophils # (A) 0.3 k/uL (0-0.7); Eosinophils % (A) 4 %; HCT 26.5 % (39.0-53.0); Lymphocytes # (A) 1.9 k/uL (1.0-4.8); Lymphocytes % (A) 28 %; MCH 30.3 pg (25.0-35.0); MCHC 34.8 g/dL (31.0-37.0); Mean Platelet Volume 7.4; Monocytes # (A) 0.4 k/uL (0-1.0); Monocytes % (A) 6 %; Neutrophils # (A) 4.1 k/uL (1.3-7.7); Neutrophils % (A) 61 %; Platelet Count 148 k/uL (150-450); RBC 3.05 m/uL (4.30-5.90); WBC 6.7 k/uL (3.8-10.6)
[2017-07-15 08:19] LABS: HGB 9.2 gm/dL (13.0-17.5)
== END | disposition home or self-care (01) ==
LOC: LABWHC1 07:35
PROVIDERS: ATTEND Internal Medicine Endocrinology, Diabetes & Metabolism
DX: E10.65 Type 1 diabetes mellitus with hyperglycemia (principal)
CPT/HCPCS: 36415; 80053; 85025

== ENCOUNTER → 2017-07-30 | Outpatient (CLI) | payer MEDICAID ==
[2017-07-30 08:11] LABS: Basophils % (A) 0 %; Eosinophils # (A) 0.2 k/uL (0-0.7); Eosinophils % (A) 4 %; HCT 22.6 % (39.0-53.0); HGB 7.9 gm/dL (13.0-17.5); Lymphocytes # (A) 1.2 k/uL (1.0-4.8); Lymphocytes % (A) 26 %; MCH 30.5 pg (25.0-35.0); MCHC 34.8 g/dL (31.0-37.0); MCV 87.7 fL (80.0-100.0); Mean Platelet Volume 8.9; Monocytes # (A) 0.2 k/uL (0-1.0); Monocytes % (A) 5 %; Neutrophils # (A) 2.9 k/uL (1.3-7.7); Neutrophils % (A) 63 %; Platelet Count 115 k/uL (150-450); RBC 2.57 m/uL (4.30-5.90); RDW 14.5 % (11.5-15.5); WBC 4.5 k/uL (3.8-10.6)
[2017-07-30 09:47] LABS: Albumin 2.6 g/dL (3.5-5.0); Calcium 8.3 mg/dL (8.4-10.2); Potassium 4.8 mmol/L (3.5-5.1); Total Bilirubin 0.5 mg/dL (0.2-1.3); Total Protein 4.7 g/dL (6.3-8.2)
== END | disposition home or self-care (01) ==
LOC: LABWHC1 07:38
PROVIDERS: ATTEND Internal Medicine Endocrinology, Diabetes & Metabolism
DX: E10.65 Type 1 diabetes mellitus with hyperglycemia (principal); D64.9 Anemia, unspecified
CPT/HCPCS: 36415; 80053; 85025

== ENCOUNTER → 2017-08-20 | Outpatient (CLI) | payer MEDICAID ==
[2017-08-20 09:30] LABS: Calcium 8.3 mg/dL (8.4-10.2); Potassium 4.2 mmol/L (3.5-5.1)
== END | disposition home or self-care (01) ==
LOC: LABWHC1 08:17
PROVIDERS: ATTEND Internal Medicine Endocrinology, Diabetes & Metabolism
DX: E10.65 Type 1 diabetes mellitus with hyperglycemia (principal)
CPT/HCPCS: 36415; 80048; 83519; 84681

== ENCOUNTER 2017-08-28 15:34 | Inpatient (IN) | payer MEDICAID ==
--- NOTE | 2017-08-28 16:06 | ED ---
General Adult HPI - General Chief complaint: Recheck/Abnormal Lab/Rx Stated complaint: Low HGB sent by [employer] Source: patient Mode of arrival: ambulatory Limitations: no limitations - History of Present Illness Initial comments: Dictation was produced using Lesson[employer] dictation software. please excuse any grammatical, word or spelling errors. Chief Complaint: 31-year-old male with past medical history of chronic kidney disease, diabetes presents with low hemoglobin. History of Present Illness: Patient was at home when he was called by nephrologists office. He was told he had a hemoglobin of 6.2 today. Labs were drawn yesterday at the nephrologists office where he saw the nurse practitioner. Patient also complains of approximately 30 pound weight gain in the last month unintentionally. Patient states that he is noted severe swelling in his bilateral lower legs. Patient feels tired and short of breath recently however only exacerbated with exertion. Patient reports that his kidney disease is likely secondary to uncontrolled diabetes. The ROS documented in this emergency department record has been reviewed and confirmed by me. Those systems with pertinent positive or negative responses have been documented in the HPI. All other systems are other negative and/or noncontributory. - Related Data Home Medications Medication Instructions Recorded Confirmed Insulin Aspart [NovoLOG See Protocol SQ AC-TID 01/28/17 08/28/17 (formulary)] Aspirin EC [Ecotrin Low Dose] 81 mg PO HS 06/17/17 08/28/17 Insulin Glargine,Hum.rec.anlog 10 units SQ HS@1800 06/17/17 08/28/17 [Toujeo Solostar] Omeprazole 20 mg PO DAILY 08/28/17 08/28/17 Sucralfate [Carafate] 1 gm PO BID 08/28/17 08/28/17 Previous Rx's Medication Instructions Recorded Atorvastatin Calcium [Lipitor] 10 mg PO HS #30 tab 05/30/17 Multivitamins, Thera [Multivitamin] 1 tab PO DAILY #30 tablet 06/20/17 Allergies Allergy/AdvReac Type Severity Reaction Status Date / Time No Known Allergies Allergy Verified 08/28/17 16:13 Review of Systems ROS Statement: Those systems with pertinent positive or pertinent negative responses have been documented in the HPI. ROS Other: All systems not noted in ROS Statement are negative. Past Medical History Past Medical History: Diabetes Mellitus, Eye Disorder Additional Past Medical History / Comment(s): IDDM type I, DKA, CKD stage III, anemia, bilateral cataracts, bilateral eye pain since laser surgery April 2017 due to retinal bleeds and since has had increased difficulty with vision-saw Dr. Renteria (opthamologist) and states he was told it could be neurological. History of Any Multi-Drug Resistant Organisms: None Reported Past Surgical History: Hernia Repair Additional Past Surgical History / Comment(s): 04/2017 bilateral laser eye surgery for retinal bleeds unsuccessful, colonoscopy Past Anesthesia/Blood Transfusion Reactions: No Reported Reaction Past Psychological History: No Psychological Hx Reported Smoking Status: Current every day smoker Past Alcohol Use History: Rare Past Drug Use History: None Reported - Past Family History Father Family Medical History: No Reported History Additional Family Medical History / Comment(s): Father is healthy Mother Family Medical History: No Reported History Additional Family Medical History / Comment(s): Mother is healthy. General Exam - General Exam Comments Initial Comments: PHYSICAL EXAM: General Impression: Alert and oriented x3, not in acute distress HEENT: Normocephalic atraumatic, extra-ocular movements intact, pupils equal and reactive to light bilaterally, mucous membranes moist. Cardiovascular: Heart regular rate and rhythm, S1&S2 audible, no murmurs, rubs or gallops Chest: Lungs clear to auscultation bilaterally, no rhonchi, no wheeze, no rales Abdomen: Bowel sounds present, abdomen soft, non-tender, non-distended, no organomegaly Musculoskeletal: Pulses present and equal in all extremities, 2+ pitting edema bilateral lower extremities extending to the knees symmetrically Motor: Power 5/5 bilaterally, no focal deficits noted Neurological: CN II-XII grossly intact, no focal motor or sensory deficits noted Skin: Intact with no visualized rashes Psych: Normal affect and mood Limitations: no limitations Course Vital Signs 08/28/17 08/28/17 08/28/17 15:41 16:11 17:03 Temperature 98.4 F Pulse Rate 94 87 83 Respiratory 20 18 18 Rate Blood Pressure 129/79 145/87 150/85 O2 Sat by Pulse 99 100 98 Oximetry Medical Decision Making - Medical Decision Making ED course: 31-year-old male past medical history of diabetes and chronic kidney disease presents via instruction from nephrologists come to the emergency department for critical low hemoglobin of 6.2. Vital signs upon arrival are within normal limits. Patient not tachycardic nor is she hypotensive. Patient does report a history of peptic ulcer disease. Patient denies any symptoms of GI bleed. Stool guaiac was not grossly positive for blood. There is reason to believe that patient's symptoms are secondary to kidney disease instead of hemorrhagic anemia. Laboratory evaluation obtained. Hemoglobin here is 7.2. Patient has been in the 7 range for his hemoglobins for several months now. No need for urgent transfusion at this time. Platelet levels is 107. Coag panel is unremarkable. Metabolic panel shows baseline elevated renal markers. Glucose is 191. Rest metabolic panel is unremarkable. Patient does have elevated BNP of 4000. Urinalysis shows proteinuria, glucosuria and RBCs stool occult is negative. Clinical presentation is consistent with new onset CHF and nephrotic versus nephrotic syndrome. Patient be admitted with cardiology and nephrology consult. EKG Interpretation: A 12 lead EKG was obtained. It was interpreted by myself and attending physician. There is a P wave before every QRS complex. Rate is [default value]. Rhythm is [default value]. QT is not prolonged. No ST segment depression or elevation. This EKG was compared to a previous EKG that was obtained on [ default value] and showed no significant change. Overall, this EKG is unremarkable - Lab Data Result diagrams: 08/28/17 16:00 08/28/17 16:00 Lab Results 08/28/17 08/28/17 08/28/17 Range/Units 16:00 16:00 16:00 WBC 4.8 (3.8-10.6) k/uL RBC 2.33 L (4.30-5.90) m/uL Hgb 7.2 L (13.0-17.5) gm/dL Hct 20.3 L (39.0-53.0) % MCV 87.3 (80.0-100.0) fL MCH 30.9 (25.0-35.0) pg MCHC 35.4 (31.0-37.0) g/dL RDW 14.1 (11.5-15.5) % Plt Count 107 L (150-450) k/uL Neutrophils % 60 % Lymphocytes % 27 % Monocytes % 5 % Eosinophils % 6 % Basophils % 0 % Neutrophils # 2.9 (1.3-7.7) k/uL Lymphocytes # 1.3 (1.0-4.8) k/uL Monocytes # 0.3 (0-1.0) k/uL Eosinophils # 0.3 (0-0.7) k/uL Basophils # 0.0 (0-0.2) k/uL Poikilocytosis Slight PT (9.0-12.0) sec INR (<1.2) Sodium 137 (137-145) mmol/L Potassium 3.9 (3.5-5.1) mmol/L Chloride 112 H (98-107) mmol/L Carbon Dioxide 23 (22-30) mmol/L Anion Gap 2 mmol/L BUN 27 H (9-20) mg/dL Creatinine 2.90 H (0.66-1.25) mg/dL Est GFR (CKD-EPI)AfAm 32 (>60 ml/min/1.73 sqM) Est GFR (CKD-EPI)NonAf 28 (>60 ml/min/1.73 sqM) Glucose 191 H (74-99) mg/dL Plasma Lactic Acid [place] (0.7-2.0) mmol/L Calcium 7.7 L (8.4-10.2) mg/dL Magnesium 2.0 (1.6-2.3) mg/dL Total Bilirubin 0.3 (0.2-1.3) mg/dL AST 64 H (17-59) U/L ALT 81 H (21-72) U/L Alkaline Phosphatase 106 (38-126) U/L Troponin I (0.000-0.034) ng/mL NT-Pro-B Natriuret Pep pg/mL Total Protein 4.4 L (6.3-8.2) g/dL Albumin 2.3 L (3.5-5.0) g/dL Urine Color Urine Appearance (Clear) Urine pH (5.0-8.0) Ur Specific [place] (1.001-1.035) Urine Protein (Negative) Urine Glucose (UA) (Negative) Urine Ketones (Negative) Urine Blood (Negative) Urine Nitrite (Negative) Urine Bilirubin (Negative) Urine Urobilinogen (<2.0) mg/dL Ur Leukocyte Esterase (Negative) Urine RBC (0-5) /hpf Urine WBC (0-5) /hpf Ur Squamous Epith Cells (0-4) /hpf Urine Bacteria (None) /hpf Hyaline Casts (0-2) /lpf Urine Mucus (None) /hpf Stool Occult Blood (Negative) Blood Type A Positive Blood Type Recheck No Antibody Screen NEGATIVE Spec Expiration Date 08/31/2017229908/28/17 08/28/17 08/28/17 Range/Units 16:00 16:00 16:00 WBC (3.8-10.6) k/uL RBC (4.30-5.90) m/uL Hgb (13.0-17.5) gm/dL Hct (39.0-53.0) % MCV (80.0-100.0) fL MCH (25.0-35.0) pg MCHC (31.0-37.0) g/dL RDW (11.5-15.5) % Plt Count (150-450) k/uL Neutrophils % % Lymphocytes % % Monocytes % % Eosinophils % % Basophils % % Neutrophils # (1.3-7.7) k/uL Lymphocytes # (1.0-4.8) k/uL Monocytes # (0-1.0) k/uL Eosinophils # (0-0.7) k/uL Basophils # (0-0.2) k/uL Poikilocytosis PT 9.7 (9.0-12.0) sec INR 1.0 (<1.2) Sodium (137-145) mmol/L Potassium (3.5-5.1) mmol/L Chloride (98-107) mmol/L Carbon Dioxide (22-30) mmol/L Anion Gap mmol/L BUN (9-20) mg/dL Creatinine (0.66-1.25) mg/dL Est GFR (CKD-EPI)AfAm (>60 ml/min/1.73 sqM) Est GFR (CKD-EPI)NonAf (>60 ml/min/1.73 sqM) Glucose (74-99) mg/dL Plasma Lactic Acid [place] 1.0 (0.7-2.0) mmol/L Calcium (8.4-10.2) mg/dL Magnesium (1.6-2.3) mg/dL Total Bilirubin (0.2-1.3) mg/dL AST (17-59) U/L ALT (21-72) U/L Alkaline Phosphatase (38-126) U/L Troponin I (0.000-0.034) ng/mL NT-Pro-B Natriuret Pep pg/mL Total Protein (6.3-8.2) g/dL Albumin (3.5-5.0) g/dL Urine Color Urine Appearance (Clear) Urine pH (5.0-8.0) Ur Specific [place] (1.001-1.035) Urine Protein (Negative) Urine Glucose (UA) (Negative) Urine Ketones (Negative) Urine Blood (Negative) Urine Nitrite (Negative) Urine Bilirubin (Negative) Urine Urobilinogen (<2.0) mg/dL Ur Leukocyte Esterase (Negative) Urine RBC (0-5) /hpf Urine WBC (0-5) /hpf Ur Squamous Epith Cells (0-4) /hpf Urine Bacteria (None) /hpf Hyaline Casts (0-2) /lpf Urine Mucus (None) /hpf Stool Occult Blood Negative (Negative) Blood Type Blood Type Recheck Antibody Screen Spec Expiration Date 08/28/17 08/28/17 08/28/17 Range/Units 16:00 16:00 16:45 WBC (3.8-10.6) k/uL RBC (4.30-5.90) m/uL Hgb (13.0-17.5) gm/dL Hct (39.0-53.0) % MCV (80.0-100.0) fL MCH (25.0-35.0) pg MCHC (31.0-37.0) g/dL RDW (11.5-15.5) % Plt Count (150-450) k/uL Neutrophils % % Lymphocytes % % Monocytes % % Eosinophils % % Basophils % % Neutrophils # (1.3-7.7) k/uL Lymphocytes # (1.0-4.8) k/uL Monocytes # (0-1.0) k/uL Eosinophils # (0-0.7) k/uL Basophils # (0-0.2) k/uL Poikilocytosis PT (9.0-12.0) sec INR (<1.2) Sodium (137-145) mmol/L Potassium (3.5-5.1) mmol/L Chloride (98-107) mmol/L Carbon Dioxide (22-30) mmol/L Anion Gap mmol/L BUN (9-20) mg/dL Creatinine (0.66-1.25) mg/dL Est GFR (CKD-EPI)AfAm (>60 ml/min/1.73 sqM) Est GFR (CKD-EPI)NonAf (>60 ml/min/1.73 sqM) Glucose (74-99) mg/dL Plasma Lactic Acid [place] (0.7-2.0) mmol/L Calcium (8.4-10.2) mg/dL Magnesium (1.6-2.3) mg/dL Total Bilirubin (0.2-1.3) mg/dL AST (17-59) U/L ALT (21-72) U/L Alkaline Phosphatase (38-126) U/L Troponin I <0.012 (0.000-0.034) ng/mL NT-Pro-B Natriuret Pep 4190 pg/mL Total Protein (6.3-8.2) g/dL Albumin (3.5-5.0) g/dL Urine Color Yellow Urine Appearance Cloudy (Clear) Urine pH 6.0 (5.0-8.0) Ur Specific [place] 1.011 (1.001-1.035) Urine Protein 4+ H (Negative) Urine Glucose (UA) 4+ H (Negative) Urine Ketones Negative (Negative) Urine Blood Moderate H (Negative) Urine Nitrite Negative (Negative) Urine Bilirubin Negative (Negative) Urine Urobilinogen <2.0 (<2.0) mg/dL Ur Leukocyte Esterase Negative (Negative) Urine RBC 3 (0-5) /hpf Urine WBC 3 (0-5) /hpf Ur Squamous Epith Cells 1 (0-4) /hpf Urine Bacteria Rare H (None) /hpf Hyaline Casts 2 (0-2) /lpf Urine Mucus Rare H (None) /hpf Stool Occult Blood (Negative) Blood Type Blood Type Recheck Antibody Screen Spec Expiration Date Disposition Clinical Impression: Congestive heart failure, Nephrotic syndrome Disposition: ADMITTED IP TO THIS HOSP Condition: Fair Referrals: Sahra Hurtado MD [Primary Care Provider] - 1-2 days Time of Disposition: 17:33
[2017-08-28 16:23] LABS: Basophils % (A) 0 %; Eosinophils # (A) 0.3 k/uL (0-0.7); Eosinophils % (A) 6 %; HCT 20.3 % (39.0-53.0); HGB 7.2 gm/dL (13.0-17.5); Lymphocytes # (A) 1.3 k/uL (1.0-4.8); Lymphocytes % (A) 27 %; MCH 30.9 pg (25.0-35.0); MCHC 35.4 g/dL (31.0-37.0); MCV 87.3 fL (80.0-100.0); Mean Platelet Volume 8.4; Monocytes # (A) 0.3 k/uL (0-1.0); Monocytes % (A) 5 %; Neutrophils # (A) 2.9 k/uL (1.3-7.7); Neutrophils % (A) 60 %; Platelet Count 107 k/uL (150-450); Poikilocytosis Slight; RBC 2.33 m/uL (4.30-5.90); RDW 14.1 % (11.5-15.5); WBC 4.8 k/uL (3.8-10.6)
[2017-08-28 16:28] LABS: Prothrombin Time 9.7 sec (9.0-12.0)
[2017-08-28 16:41] LABS: Albumin 2.3 g/dL (3.5-5.0); Calcium 7.7 mg/dL (8.4-10.2); Potassium 3.9 mmol/L (3.5-5.1); Total Bilirubin 0.3 mg/dL (0.2-1.3); Total Protein 4.4 g/dL (6.3-8.2)
--- NOTE | 2017-08-28 16:43 | XR ---
EXAMINATION TYPE: XR chest 2V DATE OF EXAM: 08/28/2017 COMPARISON: 06/10/2017 HISTORY: Chest pain TECHNIQUE: Frontal and lateral views of the chest are obtained. FINDINGS: Heart is enlarged. There is mild pulmonary congestion. There is slight blunting of the cos tophrenic angles. There are chest leads. Mediastinum is normal. Bony thorax is intact. IMPRESSION: New mild congestive heart failure compared to old exam.
[2017-08-28 17:09] LABS: Appearance,Urine Cloudy (Clear); Bacteria,Urine Rare /hpf; Bilirubin,Urine Negative (Negative); Blood,Urine Moderate (Negative); Color,Urine Yellow; Glucose,Urine (UA) 4+ (Negative); Hyaline Casts,Urine 2 /lpf (0-2); Ketones,Urine Negative (Negative); Leukocyte Esterase,Urine Negative (Negative); Mucus,Urine Rare /hpf; Nitrite,Urine Negative (Negative); Protein,Urine 4+ (Negative); RBC,Urine 3 /hpf (0-5); Specific Gravity,Urine 1.011 (1.001-1.035); Squamous Epithelial Cell,Urine 1 /hpf (0-4); Urobilinogen,Urine <2.0 mg/dL (<2.0); WBC,Urine 3 /hpf (0-5)
[2017-08-28 17:18] LABS: VBG PH 7.34 (7.31-7.41)
[2017-08-28] MEDS ORDERED: NALOXONE 0.4 MG/ML 1 ML VIAL IV PRN (17:26)
[2017-08-28] MEDS ORDERED: FUROSEMIDE 10 MG/ML 2 ML VIAL IV ONE (17:26)
[2017-08-28 19:07] LABS: Glucose,Whole Blood 190 mg/dL (75-99)
[2017-08-28] MEDS ORDERED: INSULIN ASPART 100 UNIT/ML 1 ML 10 ML VIAL SQ ONE ×2 (19:40→19:47)
[2017-08-28] MEDS ORDERED: PANTOPRAZOLE 40 MG TABLET PO STA (20:07)
[2017-08-28] MEDS ORDERED: MULTIVITAMINS, THERA 1 EACH TAB PO STA (20:09)
[2017-08-28] MEDS ORDERED: SUCRALFATE 1 GM TAB PO STA (20:13)
[2017-08-28] MEDS: ASPIRIN 81 MG PO SCH (20:33)
[2017-08-28] MEDS: SUCRALFATE 1 GM TAB PO SCH (20:33)
[2017-08-28] MEDS: ATORVASTATIN 10 MG TAB PO SCH (20:34)
[2017-08-28 21:13] LABS: Glucose,Whole Blood 230 mg/dL (75-99)
[2017-08-29 05:45] LABS: Glucose,Whole Blood 59 mg/dL (75-99)
[2017-08-29 06:07] LABS: Glucose,Whole Blood 65 mg/dL (75-99)
[2017-08-29 06:24] LABS: Glucose,Whole Blood 86 mg/dL (75-99)
[2017-08-29] MEDS: SUCRALFATE 1 GM TAB PO SCH ×2 (06:30→17:14)
[2017-08-29] MEDS ORDERED: INSULIN ASPART 100 UNIT/ML 1 ML 10 ML VIAL SQ SCH ×2 (07:30)
--- NOTE | 2017-08-29 08:29 | P.CRDCN ---
History of Present Illness Consult date: 08/29/17 Requesting physician: Khari E Sheet Consult reason: congestive heart failure Chief complaint: Swelling in the legs History of present illness: This is a pleasant 31-year-old gentleman with past medical history of diabetes, chronic kidney disease stage III, anxiety, anemia, who was advised to come to the hospital by his audiovisual tech because of a low hemoglobin. According to the patient, he also states that for past 4-6 weeks he has also noticed significant swelling in both of his lower extremities. He denies any overt shortness of breath, but states that lately just walking in a grocery store he becomes mildly short of breath. He denies any PND or orthopnea. Patient did have an echocardiogram with Doppler study performed in May of this year which revealed a normal left ventricular systolic function. Chest x- ray on arrival here showed new mild congestive heart failure. EKG shows normal sinus rhythm with no acute changes. White blood cell count 4.8, hemoglobin on admission 7.2, platelet count 107. Sodium 137, potassium 3.9, BUN 27, creatinine 2.9. AST 64, ALT 81, magnesium 2.0, blood glucose 230, troponin 0.012. BNP level 4190. Stool for occult blood negative. Blood pressure 128/ 78 with a heart rate in the 90s, 99% on room air. Blood pressure this morning 167/100. Patient was initiated on IV Lasix in the emergency room and has diuresed very well through the night last night. Weight is down 3 kg today. He continues to have significant bilateral peripheral edema. Past Medical History Past Medical History: Diabetes Mellitus, Eye Disorder Additional Past Medical History / Comment(s): IDDM type I, DKA, CKD stage III, anemia, bilateral cataracts, bilateral eye pain since laser surgery April 2017 due to retinal bleeds and since has had increased difficulty with vision-saw Dr. Renteria (opthamologist) and states he was told it could be neurological. History of Any Multi-Drug Resistant Organisms: None Reported Past Surgical History: Hernia Repair Additional Past Surgical History / Comment(s): 04/2017 bilateral laser eye surgery for retinal bleeds unsuccessful, colonoscopy Past Anesthesia/Blood Transfusion Reactions: No Reported Reaction Past Psychological History: No Psychological Hx Reported Additional Psychological History / Comment(s): Pt resides with his spouse. They have 3 cats. He is independent. 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 Smoking Status: Current every day smoker Past Alcohol Use History: Rare Additional Past Alcohol Use History / Comment(s): started smoking in 2001 down to 0.5 ppd. Past Drug Use History: None Reported - Past Family History Father Family Medical History: No Reported History Additional Family Medical History / Comment(s): Father is healthy Mother Family Medical History: No Reported History Additional Family Medical History / Comment(s): Mother is healthy. Medications and Allergies Home Medications Medication Instructions Recorded Confirmed Type Insulin Aspart [NovoLOG See Protocol SQ AC-TID 01/28/17 08/28/17 History (formulary)] Atorvastatin Calcium [Lipitor] 10 mg PO HS #30 tab 05/30/17 08/28/17 Rx Aspirin EC [Ecotrin Low Dose] 81 mg PO HS 06/17/17 08/28/17 History Insulin Glargine,Hum.rec.anlog 10 units SQ HS@1800 06/17/17 08/28/17 History [Toujeo Solostar] Multivitamins, Thera [Multivitamin] 1 tab PO DAILY #30 tablet 06/20/17 08/28/17 Rx Omeprazole 20 mg PO DAILY 08/28/17 08/28/17 History Sucralfate [Carafate] 1 gm PO BID 08/28/17 08/28/17 History Allergies Allergy/AdvReac Type Severity Reaction Status Date / Time No Known Allergies Allergy Verified 08/28/17 16:13 Physical Exam Vitals: Vital Signs Temp Pulse Pulse Resp BP BP Pulse Ox 08/29/17 08:06 97.9 F 95 18 167/100 99 08/29/17 04:00 97.8 F 78 18 144/79 98 08/29/17 00:00 90 18 08/28/17 21:26 98.2 F 97 18 162/93 100 08/28/17 20:29 97.9 F 91 18 170/98 100 08/28/17 17:58 89 18 167/90 100 08/28/17 17:03 83 18 150/85 98 08/28/17 16:11 87 18 145/87 100 08/28/17 16:07 89 08/28/17 15:41 98.4 F 94 20 129/79 99 Intake and Output 08/28/17 08/29/17 08/29/17 22:59 06:59 14:59 Output Total 900 950 Balance -900 -950 Output: Urine 900 950 Other: Voiding Method Urinal Urinal Urinal # Voids 0 1 Weight 73.1 kg 70.4 kg PHYSICAL EXAMINATION: GENERAL: 31-year-old male patient, in no apparent distress at the time of my examination HEENT: Head is atraumatic, normocephalic. Pupils equal, round. Sclera anicteric. Conjunctiva are clear. Mucous membranes of the mouth are moist. Neck is supple. There is elevated jugular venous pressure. no carotid bruit is heard. HEART EXAMINATION: [Hert S1, S2 normal. No murmur or gallop heard.] HEST EXAMINATION:[ Lngs are clear to auscultation and precussion. No chest wall tenderness is noted on palpation or with deep breathing.] BDOMEN: [ Sft, mild hepatomegaly noted. EXTREMITIES:[ 2+ peripheral pulses with no evidenc of peripheral eema and no calf tenderness noted]. NEUROLOGIC [patient is awake, alert and oriented X3] . Results 08/28/17 16:00 08/28/17 16:00 Cardiac Enzymes 08/28/17 08/28/17 Range/Units 16:00 16:00 AST 64 H (17-59) U/L Troponin I <0.012 (0.000-0.034) ng/mL Coagulation 08/28/17 Range/Units 16:00 PT 9.7 (9.0-12.0) sec CBC 08/28/17 Range/Units 16:00 WBC 4.8 (3.8-10.6) k/uL RBC 2.33 L (4.30-5.90) m/uL Hgb 7.2 L (13.0-17.5) gm/dL Hct 20.3 L (39.0-53.0) % Plt Count 107 L (150-450) k/uL Comprehensive Metabolic Panel 08/28/17 Range/Units 16:00 Sodium 137 (137-145) mmol/L Potassium 3.9 (3.5-5.1) mmol/L Chloride 112 H (98-107) mmol/L Carbon Dioxide 23 (22-30) mmol/L BUN 27 H (9-20) mg/dL Creatinine 2.90 H (0.66-1.25) mg/dL Glucose 191 H (74-99) mg/dL Calcium 7.7 L (8.4-10.2) mg/dL AST 64 H (17-59) U/L ALT 81 H (21-72) U/L Alkaline Phosphatase 106 (38-126) U/L Total Protein 4.4 L (6.3-8.2) g/dL Albumin 2.3 L (3.5-5.0) g/dL Current Medications Generic Name Dose Route Start Last Admin Trade Name Freq PRN Reason Stop Dose Admin Aspirin 81 mg 08/28/17 21:00 08/28/17 20:33 Aspirin PO 81 mg HS CAMMIE Administration Atorvastatin Calcium 10 mg 08/28/17 21:00 08/28/17 20:34 Lipitor PO 10 mg HS CAMMIE Administration Insulin Aspart 0 unit 08/29/17 07:30 08/29/17 06:29 Novolog SQ Not Given AC-TID CAMMIE Protocol Insulin Detemir 10 unit 08/29/17 18:00 08/28/17 19:52 Levemir SQ 10 unit HS@1800 CAMMIE Administration Naloxone HCl 0.2 mg 08/28/17 17:26 Narcan IV Q2M PRN Opioid Reversal Sucralfate 1 gm 08/28/17 20:15 08/29/17 06:30 Carafate PO 1 gm AC-BID CAMMIE Administration Intake and Output 08/28/17 08/29/17 08/29/17 22:59 06:59 14:59 Output Total 900 950 Balance -900 -950 Output: Urine 900 950 Other: Voiding Method Urinal Urinal Urinal # Voids 0 1 Weight 73.1 kg 70.4 kg 08/28/17 16:00 08/28/17 16:00 EKG Interpretations (text) EKG shows NSR no acute changes Assessment and Plan Plan: Assessment and plan #1 congestive heart failure, diastolic, acute on chronic. Echocardiogram with Doppler study was performed in May which revealed a normal left ventricular systolic function #2 chronic renal failure stage III #3 anemia #4 diabetes, uncontrolled #5 hypertension, untreated #6 hyperlipidemia Plan We will repeat an echocardiogram with Doppler study. We will also continue IV Lasix monitoring the renal function closely. As well as the intake and output. Cousin of the patient's abnormal renal function, we will not start an MIKI inhibitor or angiotensin lanie at this time, we will start low-dose beta lanie for blood pressure control. Further recommendations to follow. DNP note has been reviewed, I agree with a documented findings and plan of care. Patient was seen and examined.
[2017-08-29] MEDS ORDERED: METOPROLOL TARTRATE 25 MG TAB PO SCH (09:00)
[2017-08-29 09:25] LABS: Glucose,Whole Blood 225 mg/dL (75-99)
[2017-08-29] MEDS ORDERED: FUROSEMIDE 10 MG/ML 4 ML VIAL IV SCH (10:30)
--- NOTE | 2017-08-29 10:53 | ECHOF ---
Referral Reason:chf MEASUREMENTS -------- HEIGHT: 182.9 cm WEIGHT: 70.3 kg BP: IVSd: 1.2 cm (0.6 - 1.1) LVIDd: 4.1 cm (3.9 - 5.3) LVPWd: 1.3 cm (0.6 - 1.1) IVSs: 1.5 cm LVIDs: 2.2 cm LVPWs: 2.1 cm IVSd: 1.2 cm (0.6 - 1.1) LVIDd: 5.1 cm (3.9 - 5.3) LVPWd: 1.2 cm (0.6 - 1.1) EDV(Teich): 124 ml Ao Diam: 2.9 cm (2.0 - 3.7) AV Cusp: 2.4 cm (1.5 - 2.6) LA Diam: 3.6 cm (2.7 - 3.8) MV EXCURSION: 14.577 mm (> 18.000) MV EF SLOPE: 80 mm/s (70 - 150) EPSS: 0.3 cm MV E Hilton: 1.03 m/s MV DecT: 73 ms MV A Hilton: 1.01 m/s MV E/A Ratio: 1.02 RAP: 5.00 mmHg RVSP: 24.18 mmHg FINDINGS -------- Sinus rhythm. This was a technically good study. The left ventricular size is normal. There is moderate concentric left ventricular hypertrophy. O verall left ventricular systolic function is normal with, an EF between 55 - 60 %. The right ventricle is normal in size and function. The left atrium is normal in size. The right atrium is normal in size. The aortic valve is trileaflet, and appears structurally normal. No aortic stenosis or regurgitation. The mitral valve leaflets are mildly thickened. Mild mitral regurgitation is present. Mild tricuspid regurgitation present. The right ventricular systolic pressure, as measured by Doppl er, is 24.18mmHg. Pulmonic valve appears structurally normal. The aortic root size is normal. Normal inferior vena cava with normal inspiratory collapse consistent with estimated right atrial pre ssure of 5 mmHg. There is a small, generalized pericardial effusion present. Moderate Pleural Effusion. CONCLUSIONS -------- 1. Sinus rhythm. 2. This was a technically good study. 3. The left ventricular size is normal. 4. There is moderate concentric left ventricular hypertrophy. 5. Overall left ventricular systolic function is normal with, an EF between 55 - 60 %. 6. The right ventricle is normal in size and function. 7. The left atrium is normal in size. 8. The right atrium is normal in size. 9. The aortic valve is trileaflet, and appears structurally normal. No aortic stenosis or regurgitati on. 10. The mitral valve leaflets are mildly thickened. 11. Mild mitral regurgitation is present. 12. Mild tricuspid regurgitation present. 13. The right ventricular systolic pressure, as measured by Doppler, is 24.18mmHg. 14. Pulmonic valve appears structurally normal. 15. The aortic root size is normal. 16. Normal inferior vena cava with normal inspiratory collapse consistent with estimated right atrial pressure of 5 mmHg. 17. There is a small, generalized pericardial effusion present. 18. Moderate Pleural Effusion. SEARCH ENGINE OPTIMIZER: Susu Wray RDCS
[2017-08-29 11:01] LABS: Poikilocytosis Slight
[2017-08-29 11:08] LABS: MCH 30.3 pg (25.0-35.0); MCHC 34.6 g/dL (31.0-37.0); MCV 87.7 fL (80.0-100.0); Mean Platelet Volume 8.6; Platelet Count 105 k/uL (150-450); RBC 2.21 m/uL (4.30-5.90); RDW 13.9 % (11.5-15.5); WBC 5.1 k/uL (3.8-10.6)
[2017-08-29 11:15] LABS: Calcium 7.8 mg/dL (8.4-10.2); Potassium 4.1 mmol/L (3.5-5.1)
--- NOTE | 2017-08-29 11:20 | P.HPIM ---
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 Patient was seen by a animal biologist for low hemoglobin at 6.2. Repeat hemoglobin in the emergency room was 7.2. Patient denies to me bleeding from anywhere. Patient was going to his doctor for regular follow-up he denies chest pain. However he admits to new exertional dyspnea after some walking.on the chest x-ray there was suspicion for new CHF. patient also was complaining of from progressive bilateral leg swelling. UA was 4+ for blood and protein. FOBT in ED was negative. patient was admitted for possible acute CHF on the top of CKD and anemia No new dizziness or syncope. No change in urine or bowel habits. No fever In the ED patient vitals look stable, urine is positive for moderate blood, and 4+ protein and 4+ glucose in the urine. FOBT: Negative. Sodium 137, potassium 3.9. Creatinine high at 2.9, it was 2.9 on 08/20/2017, and 2.5 on 07/2017. AST and ALP are slightly elevated at 64 and 81 respectively. Total bilirubin is within normal limits at 0.3. Troponin is negative area proBNP is 4190. INR is 1.0. WC4.8K, hemoglobin 7.2, platelets low at 107, previous thrombocytopenia is noticed since 01/2017 chest x-ray shows new mild congestive heart failure compelled to old exam as per radiology report. Review of EKG shows normal sinus rhythm at [address]-T changes, QTC is 445. Also the emergency room he received 1 dose of Lasix 20 mg,. Patient is already on aspirin. Review of Systems CONSTITUTIONAL: No fever, no malaise, no fatigue. HEENT: No recent visual problems or hearing problems. Denied any sore throat. CARDIOVASCULAR: No orthopnea, PND, no palpitations, no syncope. PULMONARY: No shortness of breath, no cough, no hemoptysis. GASTROINTESTINAL: No diarrhea, no nausea, no vomiting, no abdominal pain. Normoactive bowel sounds. NEUROLOGICAL: No headaches, no weakness, no numbness. HEMATOLOGICAL: Denies any bleeding or petechiae. GENITOURINARY: Denies any burning micturition, frequency, or urgency. MUSCULOSKELETAL/RHEUMATOLOGICAL: Denies any joint pain, swelling, or any muscle pain. ENDOCRINE: Denies any polyuria or polydipsia. Past Medical History Past Medical History: Diabetes Mellitus, Eye Disorder Additional Past Medical History / Comment(s): IDDM type I, DKA, CKD stage III, anemia, bilateral cataracts, bilateral eye pain since laser surgery April 2017 due to retinal bleeds and since has had increased difficulty with vision-saw Dr. Renteria (opthamologist) and states he was told it could be neurological. History of Any Multi-Drug Resistant Organisms: None Reported Past Surgical History: Hernia Repair Additional Past Surgical History / Comment(s): 04/2017 bilateral laser eye surgery for retinal bleeds unsuccessful, colonoscopy Past Anesthesia/Blood Transfusion Reactions: No Reported Reaction Past Psychological History: No Psychological Hx Reported Additional Psychological History / Comment(s): Pt resides with his spouse. They have 3 cats. He is independent. 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 Smoking Status: Current every day smoker Past Alcohol Use History: Rare Additional Past Alcohol Use History / Comment(s): started smoking in 2001 down to 0.5 ppd. Past Drug Use History: None Reported - Past Family History Father Family Medical History: No Reported History Additional Family Medical History / Comment(s): Father is healthy Mother Family Medical History: No Reported History Additional Family Medical History / Comment(s): Mother is healthy. Medications and Allergies Home Medications Medication Instructions Recorded Confirmed Type Insulin Aspart [NovoLOG See Protocol SQ AC-TID 01/28/17 08/28/17 History (formulary)] Atorvastatin Calcium [Lipitor] 10 mg PO HS #30 tab 05/30/17 08/28/17 Rx Aspirin EC [Ecotrin Low Dose] 81 mg PO HS 06/17/17 08/28/17 History Insulin Glargine,Hum.rec.anlog 10 units SQ HS@1800 06/17/17 08/28/17 History [Ihsan Alvarado] Multivitamins, Thera [Multivitamin] 1 tab PO DAILY #30 tablet 06/20/17 08/28/17 Rx Omeprazole 20 mg PO DAILY 08/28/17 08/28/17 History Sucralfate [Carafate] 1 gm PO BID 08/28/17 08/28/17 History Allergies Allergy/AdvReac Type Severity Reaction Status Date / Time No Known Allergies Allergy Verified 08/28/17 16:13 Physical Exam Vitals: Vital Signs Temp Pulse Pulse Resp BP BP Pulse Ox 08/29/17 08:06 97.9 F 95 18 167/100 99 08/29/17 04:00 97.8 F 78 18 144/79 98 08/29/17 00:00 90 18 08/28/17 21:26 98.2 F 97 18 162/93 100 08/28/17 20:29 97.9 F 91 18 170/98 100 08/28/17 17:58 89 18 167/90 100 08/28/17 17:03 83 18 150/85 98 08/28/17 16:11 87 18 145/87 100 08/28/17 16:07 89 08/28/17 15:41 98.4 F 94 20 129/79 99 Intake and Output 08/28/17 08/29/17 08/29/17 22:59 06:59 14:59 Output Total 900 950 Balance -900 -950 Output: Urine 900 950 Other: Voiding Method Urinal Urinal Urinal # Voids 0 1 Weight 73.1 kg 70.4 kg GENERAL: The patient is alert and oriented x3, not in any acute distress. Well developed, well nourished. HEENT: Pupils are round and equally reacting to light. EOMI. No scleral icterus. No conjunctival pallor. Normocephalic, atraumatic. No pharyngeal erythema. No thyromegaly. -CARDIOVASCULAR: S1 and S2 present. No murmurs, rubs, or gallops. Bilateral basal crepitation PULMONARY: Chest is clear to auscultation, no wheezing or crackles. ABDOMEN: Soft, nontender, nondistended, normoactive bowel sounds. No palpable organomegaly. MUSCULOSKELETAL: No joint swelling or deformity. -EXTREMITIES: No cyanosis, clubbing. Has bilateral pedal edema. NEUROLOGICAL: Gross neurological examination did not reveal any focal deficits. SKIN: No rashes. Results CBC & Chem 7: 08/28/17 16:00 08/29/17 10:52 Labs: Abnormal Lab Results - Last 24 Hours (Table) 08/28/17 08/28/17 08/28/17 Range/Units 16:00 16:00 16:45 RBC 2.33 L (4.30-5.90) m/uL Hgb 7.2 L (13.0-17.5) gm/dL Hct 20.3 L (39.0-53.0) % Plt Count 107 L (150-450) k/uL VBG HCO3 (24-28) mmol/L Chloride 112 H (98-107) mmol/L BUN 27 H (9-20) mg/dL Creatinine 2.90 H (0.66-1.25) mg/dL Glucose 191 H (74-99) mg/dL POC Glucose (mg/dL) (75-99) mg/dL Calcium 7.7 L (8.4-10.2) mg/dL AST 64 H (17-59) U/L ALT 81 H (21-72) U/L Total Protein 4.4 L (6.3-8.2) g/dL Albumin 2.3 L (3.5-5.0) g/dL Urine Protein 4+ H (Negative) Urine Glucose (UA) 4+ H (Negative) Urine Blood Moderate H (Negative) Urine Bacteria Rare H (None) /hpf Urine Mucus Rare H (None) /hpf 08/28/17 08/28/17 08/28/17 Range/Units 17:00 19:05 21:11 RBC (4.30-5.90) m/uL Hgb (13.0-17.5) gm/dL Hct (39.0-53.0) % Plt Count (150-450) k/uL VBG HCO3 22 L (24-28) mmol/L Chloride (98-107) mmol/L BUN (9-20) mg/dL Creatinine (0.66-1.25) mg/dL Glucose (74-99) mg/dL POC Glucose (mg/dL) 190 H 230 H (75-99) mg/dL Calcium (8.4-10.2) mg/dL AST (17-59) U/L ALT (21-72) U/L Total Protein (6.3-8.2) g/dL Albumin (3.5-5.0) g/dL Urine Protein (Negative) Urine Glucose (UA) (Negative) Urine Blood (Negative) Urine Bacteria (None) /hpf Urine Mucus (None) /hpf 08/29/17 08/29/17 08/29/17 Range/Units 05:44 06:05 09:21 RBC (4.30-5.90) m/uL Hgb (13.0-17.5) gm/dL Hct (39.0-53.0) % Plt Count (150-450) k/uL VBG HCO3 (24-28) mmol/L Chloride (98-107) mmol/L BUN (9-20) mg/dL Creatinine (0.66-1.25) mg/dL Glucose (74-99) mg/dL POC Glucose (mg/dL) 59 L 65 L 225 H (75-99) mg/dL Calcium (8.4-10.2) mg/dL AST (17-59) U/L ALT (21-72) U/L Total Protein (6.3-8.2) g/dL Albumin (3.5-5.0) g/dL Urine Protein (Negative) Urine Glucose (UA) (Negative) Urine Blood (Negative) Urine Bacteria (None) /hpf Urine Mucus (None) /hpf Microbiology - Last 24 Hours (Table) 08/28/17 16:45 Urine Culture - Preliminary Urine,Voided Thrombosis Risk Factor Assmnt - Choose All That Apply Any of the Below Risk Factors Present?: No Assessment and Plan Plan: -Anemia, hemoglobin on admission 7.2. We'll do anemia workup with iron studies plus B12/folate. Repeat FOBT: Pending. Monitor hemoglobin -Acute on chronic diastolic CHF, pulmonary congestion per radiology report on CXR. ProBNP 4000+. Troponin negative. EKG which no significant ST-T changes. Will call cardiology consult. Check echo. Patient on Lasix 40 mg twice a day -Chronic kidney disease, creatinine 2.9. There is proteinuria and hematuria. Nephrology consult. Follow-up creatinine. -Bilateral leg swelling: Venous Doppler to rule out DVT: Pending -Diabetes mellitus, insulin-dependent. Patient has his on regimen which was implemented. Follow-up ISS -Hypertension, continue with same treatment -Hyperlipidemia continue with Lipitor DVT Prophylaxis: Subcutaneous heparin. In spite of his low hemoglobin however his FOBT is negative. We going to check FOBT again. However risks benefits and alternatives are explained to the patient including but not limited to the risk of bleeding. He verbalized understanding and acceptance. We think the benefits more than the risks GI prophylaxis: Pepcid PT/OT: Pending Prognosis guarded
[2017-08-29 11:21] LABS: HCT 19.4 % (39.0-53.0); HGB 6.7 gm/dL (13.0-17.5)
[2017-08-29] MEDS ORDERED: HEPARIN SODIUM,PORCINE 5,000 UNIT/ML 1 ML VIAL SQ SCH ×2 (11:30→21:00)
[2017-08-29] MEDS: INSULIN ASPART 100 UNIT/ML 1 ML 10 ML VIAL SQ SCH ×4 (11:32→21:48)
[2017-08-29 11:35] LABS: Glucose,Whole Blood 342 mg/dL (75-99)
--- NOTE | 2017-08-29 12:32 | P.NPCON ---
History of Present Illness - Reason for Consult acute renal failure, chronic renal failure - History of Present Illness Reason for consultation: Acute kidney injury on chronic kidney disease History of present illness: Patient is a 31-year-old male seen in renal consultation for acute kidney injury on chronic kidney disease. Patient has chronic kidney disease secondary to diabetic kidney disease. His creatinine in January 2017 was 1.17. He was elevated at 2.96 admission and is down to 2.78 today. Patient was noted to have a hemoglobin of less than 7 as an outpatient and was advised to go to the hospital. This mornings he will open was 6.7 and he is scheduled to receive 1 unit of blood transfusion. Patient admits to swelling in his legs. States he' s gained about 30 pounds over the last 2-3 months. He is currently maintained on Lasix 40 mg IV twice daily. Admits to good urine output. No hematuria or dysuria. He does have history of gastric ulcers. He denies any melena or hematochezia. No fever or chills. Does have vomiting at times. Tolerating oral intake. Hemodynamically stable. Denies use of NSAIDs. He is a long- standing history of diabetes mellitus. Vital signs are stable. General: The patient appeared well nourished and normally developed. HEENT: Head exam is unremarkable. Neck is without jugular venous distension. LUNGS: Lungs are clear to auscultation and percussion. Breath sounds decreased. HEART: Rate and Rhythm are regular. First and second heart sounds normal. No murmurs, rubs or gallops. ABDOMEN: Abdominal exam reveals normal bowel sounds. Non-tender and non- distended. No evidence of peritonitis. EXTREMITITES: 2+ edema. Past Medical History Past Medical History: Diabetes Mellitus, Eye Disorder Additional Past Medical History / Comment(s): IDDM type I, DKA, CKD stage III, anemia, bilateral cataracts, bilateral eye pain since laser surgery April 2017 due to retinal bleeds and since has had increased difficulty with vision-saw Dr. Renteria (opthamologist) and states he was told it could be neurological. History of Any Multi-Drug Resistant Organisms: None Reported Past Surgical History: Hernia Repair Additional Past Surgical History / Comment(s): 04/2017 bilateral laser eye surgery for retinal bleeds unsuccessful, colonoscopy Past Anesthesia/Blood Transfusion Reactions: No Reported Reaction Past Psychological History: No Psychological Hx Reported Additional Psychological History / Comment(s): Pt resides with his spouse. They have 3 cats. He is independent. 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 Smoking Status: Current every day smoker Past Alcohol Use History: Rare Additional Past Alcohol Use History / Comment(s): started smoking in 2001 down to 0.5 ppd. Past Drug Use History: None Reported - Past Family History Father Family Medical History: No Reported History Additional Family Medical History / Comment(s): Father is healthy Mother Family Medical History: No Reported History Additional Family Medical History / Comment(s): Mother is healthy. Medications and Allergies Home Medications Medication Instructions Recorded Confirmed Type Insulin Aspart [NovoLOG See Protocol SQ AC-TID 01/28/17 08/28/17 History (formulary)] Atorvastatin Calcium [Lipitor] 10 mg PO HS #30 tab 05/30/17 08/28/17 Rx Aspirin EC [Ecotrin Low Dose] 81 mg PO HS 06/17/17 08/28/17 History Insulin Glargine,Hum.rec.anlog 10 units SQ HS@1800 06/17/17 08/28/17 History [Toujeo Solostar] Multivitamins, Thera [Multivitamin] 1 tab PO DAILY #30 tablet 06/20/17 08/28/17 Rx Omeprazole 20 mg PO DAILY 08/28/17 08/28/17 History Sucralfate [Carafate] 1 gm PO BID 08/28/17 08/28/17 History Allergies Allergy/AdvReac Type Severity Reaction Status Date / Time No Known Allergies Allergy Verified 08/28/17 16:13 Physical Exam Vitals: Vital Signs Temp Pulse Pulse Resp BP BP Pulse Ox 08/29/17 08:06 97.9 F 95 18 167/100 99 08/29/17 04:00 97.8 F 78 18 144/79 98 08/29/17 00:00 90 18 08/28/17 21:26 98.2 F 97 18 162/93 100 08/28/17 20:29 97.9 F 91 18 170/98 100 08/28/17 17:58 89 18 167/90 100 08/28/17 17:03 83 18 150/85 98 08/28/17 16:11 87 18 145/87 100 08/28/17 16:07 89 08/28/17 15:41 98.4 F 94 20 129/79 99 Intake and Output 08/28/17 08/29/17 08/29/17 22:59 06:59 14:59 Intake Total 1200 Output Total 900 950 Balance -900 -950 1200 Intake: Oral 1200 Output: Urine 900 950 Other: Voiding Method Urinal Urinal Urinal # Voids 0 1 Weight 73.1 kg 70.4 kg Results - Lab Results Most recent lab results Calcium 7.8 mg/dL (8.4-10.2) L 08/29/17 10:52 Magnesium 2.0 mg/dL (1.6-2.3) 08/28/17 16:00 08/29/17 10:52 08/29/17 10:52 Assessment and Plan Plan: Assessment: 1. Nonoliguric acute kidney injury secondary to ATN secondary to acute anemia and also component of cardiorenal syndrome. Creatinine 2.9 on admission and is 2.78 today. 2. Chronic kidney disease stage III secondary to diabetic kidney disease. His recent creatinines have been in the range of 1.5-2. Serologies in the past have been noted to be negative. 3. Acute anemia. Questionable GI bleed. No active bleeding. Hemoglobin 6.7 today. 4. Diastolic CHF. 5. Volume overload. Next line 6. Insulin-dependent diabetes mellitus. 6. Hypertension with chronic kidney disease. Partially volume sensitive. Plan: I will increase Lasix to 60 mg IV twice daily. Low-salt diet. 1200 mL fluid restriction. 1 unit of packed red blood cell transfusion today. Check iron studies. Add Aranesp. Consider GI consultation as he does have history of gastric ulcers. Repeat electrolytes in the morning. Thank you for the consultation. I will continue to follow the patient with you during his hospital stay.
--- NOTE | 2017-08-29 13:21 | US ---
EXAMINATION TYPE: US venous doppler duplex LE DATE OF EXAM: 08/29/2017 11:56 AM COMPARISON: NONE CLINICAL HISTORY: Rule out DVT. No blood thinners. bilateral ankle swelling. No redness. No pain. No hx of blood clots. SIDE PERFORMED: Bilateral TECHNIQUE: The lower extremity deep venous system is examined utilizing real time linear array sonog fredis with graded compression, doppler sonography and color-flow sonography. VESSELS IMAGED: External Iliac Vein (EIV) Common Femoral Vein Deep Femoral Vein Greater Saphenous Vein * Femoral Vein Popliteal Vein Small Saphenous Vein * Proximal Calf Veins (* superficial vessels) Right Leg: Negative for DVT. Lymph nodes seen in groin. Cystic appearing lesion seen in posterior knee = 3.0 x 1.9 x 0.9 cm Left Leg: Negative for DVT. Lymph nodes seen in groin. Grayscale, color doppler, spectral doppler imaging performed of the deep veins of the bilateral lower extremities. There is normal flow, compressibility, vascular waveforms. IMPRESSION: No ultrasound evidence for acute DVT in either lower extremity. Small popliteal cyst on the right is noted.
[2017-08-29 13:40] LABS: Glucose,Whole Blood 293 mg/dL (75-99)
[2017-08-29 13:58] VITALS: BMI 21.6
[2017-08-29] MEDS ORDERED: DARBEPOETIN ALFA 40 MCG/0.4 ML SYRINGE SQ SCH (14:00)
[2017-08-29] MEDS ORDERED: FUROSEMIDE 10 MG/ML 4 ML VIAL IV STA (15:01)
[2017-08-29] MEDS: METOPROLOL TARTRATE 25 MG TAB PO SCH ×2 (15:17→21:48)
[2017-08-29 16:47] LABS: Folate, Serum 19.3 ng/mL; Iron Saturation 32.27 (15.00-50.00)
[2017-08-29 17:28] LABS: Glucose,Whole Blood 170 mg/dL (75-99)
[2017-08-29] MEDS: INSULIN DETEMIR 100 UNIT/ML 10 ML VIAL SQ SCH (17:41)
[2017-08-29] MEDS ORDERED: INSULIN DETEMIR 100 UNIT/ML 10 ML VIAL SQ SCH (18:00)
[2017-08-29 20:52] LABS: Glucose,Whole Blood 112 mg/dL (75-99)
[2017-08-29] MEDS: ATORVASTATIN 10 MG TAB PO SCH (21:47)
[2017-08-29] MEDS: ASPIRIN 81 MG PO SCH (21:47)
[2017-08-29] MEDS: FAMOTIDINE 20 MG/2 ML VIAL IV SCH (21:48)
[2017-08-29] MEDS: FUROSEMIDE 10 MG/ML 10 ML VIAL IV SCH (21:56)
[2017-08-30 06:20] LABS: Glucose,Whole Blood 111 mg/dL (75-99)
[2017-08-30 06:27] LABS: Basophils % (A) 1 %; Eosinophils # (A) 0.3 k/uL (0-0.7); Eosinophils % (A) 5 %; HCT 22.1 % (39.0-53.0); HGB 7.6 gm/dL (13.0-17.5); Lymphocytes # (A) 1.8 k/uL (1.0-4.8); Lymphocytes % (A) 31 %; MCH 30.3 pg (25.0-35.0); MCHC 34.5 g/dL (31.0-37.0); MCV 87.7 fL (80.0-100.0); Mean Platelet Volume 7.8; Monocytes # (A) 0.3 k/uL (0-1.0); Monocytes % (A) 5 %; Neutrophils # (A) 3.3 k/uL (1.3-7.7); Neutrophils % (A) 57 %; Platelet Count 100 k/uL (150-450); RBC 2.52 m/uL (4.30-5.90); RDW 13.9 % (11.5-15.5); WBC 5.8 k/uL (3.8-10.6)
[2017-08-30 06:34] LABS: Potassium 3.5 mmol/L (3.5-5.1)
[2017-08-30] MEDS: INSULIN ASPART 100 UNIT/ML 1 ML 10 ML VIAL SQ SCH ×5 (07:07→21:22)
[2017-08-30] MEDS: SUCRALFATE 1 GM TAB PO SCH ×2 (07:08→18:01)
[2017-08-30] MEDS: FAMOTIDINE 20 MG/2 ML VIAL IV SCH ×2 (08:56→21:22)
[2017-08-30] MEDS: FUROSEMIDE 10 MG/ML 10 ML VIAL IV SCH ×2 (08:56→21:22)
[2017-08-30] MEDS: METOPROLOL TARTRATE 25 MG TAB PO SCH (08:56)
[2017-08-30 10:15] LABS: Glucose,Whole Blood 219 mg/dL (75-99)
[2017-08-30] MEDS ORDERED: hydrALAZINE HCL 25 MG TAB PO SCH (10:15)
[2017-08-30] MEDS: ISOSORBIDE MONONITRATE ER 30 MG TAB.ER.24H PO SCH (11:24)
[2017-08-30 11:50] LABS: Glucose,Whole Blood 180 mg/dL (75-99)
--- NOTE | 2017-08-30 12:38 | P.PN ---
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 According to the patient, he also states that for past 4-6 weeks he has also noticed significant swelling in both of his lower extremities. He denies any overt shortness of breath, but states that lately just walking in a grocery store he becomes mildly short of breath. He denies any PND or orthopnea. Patient did have an echocardiogram with Doppler study performed in May of this year which revealed a normal left ventricular systolic function. Chest x- ray on arrival here showed new mild congestive heart failure. EKG shows normal sinus rhythm with no acute changes. White blood cell count 4.8, hemoglobin on admission 7.2, platelet count 107. Sodium 137, potassium 3.9, BUN 27, creatinine 2.9. AST 64, ALT 81, magnesium 2.0, blood glucose 230, troponin 0.012. BNP level 4190. Stool for occult blood negative. Blood pressure 128/ 78 with a heart rate in the 90s, 99% on room air. Blood pressure this morning 167/100. Patient was initiated on IV Lasix in the emergency room and has diuresed very well through the night last night. Weight is down 3 kg today. He continues to have significant bilateral peripheral edema. 08/30/2017 Patient seen and examined this morning, diuresed well through the night last night. Weight is down 5 kg from admission. Echo cardiac gram with Doppler study revealed a normal left ventricular systolic function. Let pressure this morning 189/111. Hemoglobin today 7.6, platelet count 100, BUN 30, creatinine 2.9, potassium 3.5. Patient did receive a packed red blood cell transfusion yesterday, GI consultation recommended. Patient does have history of gastric ulcers in the past. Iron 71, TIBC 220, iron saturation 32.2, ferritin level 295. Objective - Vital Signs Vital signs: Vital Signs Temp 98.2 F 08/30/17 08:56 Pulse 82 08/30/17 08:56 Resp 18 08/30/17 08:56 BP 189/111 08/30/17 08:56 Pulse Ox 97 08/30/17 08:56 Intake & Output 08/29/17 08/30/17 08/30/17 18:59 06:59 18:59 Intake Total 1989 480 Output Total 350 3000 Balance 1640 -3000 480 Weight 70.4 kg 68.1 kg Intake: Oral 1680 480 Blood Product 310 Rc As-1 Unit 310 [id number] Output: Urine 350 3000 Other: Voiding Method Urinal Urinal Urinal # Voids 1 2 - Exam PHYSICAL EXAMINATION: GENERAL: 31-year-old male patient, in no apparent distress at the time of my examination HEENT: Head is atraumatic, normocephalic. Pupils equal, round. Sclera anicteric. Conjunctiva are clear. Mucous membranes of the mouth are moist. Neck is supple. There is elevated jugular venous pressure. no carotid bruit is heard. HEART EXAMINATION: [Heart S1, S2 normal. No murmur or gallop heard.] HEST EXAMINATION:[ Lungs are clear to auscultation and precussion. No chest wall tenderness is noted on palpation or with deep breathing.] BDOMEN: [ Soft, mild hepatomegaly noted. EXTREMITIES:[ 2+ peripheral pulses with 1+ evidence of peripheral edema and no calf tenderness noted]. NEUROLOGIC [patient is awake, alert and oriented X3] - Labs CBC & Chem 7: 08/30/17 05:55 08/30/17 05:55 Labs: Abnormal Lab Results - Last 24 Hours (Table) 08/28/17 08/29/17 08/29/17 Range/Units 16:00 10:52 13:38 RBC (4.30-5.90) m/uL Hgb (13.0-17.5) gm/dL Hct (39.0-53.0) % Plt Count (150-450) k/uL BUN (9-20) mg/dL Creatinine (0.66-1.25) mg/dL Glucose (74-99) mg/dL POC Glucose (mg/dL) 293 H (75-99) mg/dL Calcium (8.4-10.2) mg/dL TIBC 220 L (228-460) ug/dL Crossmatch See Detail 08/29/17 08/29/17 08/30/17 Range/Units 16:58 20:51 05:55 RBC 2.52 L (4.30-5.90) m/uL Hgb 7.6 L (13.0-17.5) gm/dL Hct 22.1 L (39.0-53.0) % Plt Count 100 L (150-450) k/uL BUN (9-20) mg/dL Creatinine (0.66-1.25) mg/dL Glucose (74-99) mg/dL POC Glucose (mg/dL) 170 H 112 H (75-99) mg/dL Calcium (8.4-10.2) mg/dL TIBC (228-460) ug/dL Crossmatch 08/30/17 08/30/17 08/30/17 Range/Units 05:55 06:18 10:03 RBC (4.30-5.90) m/uL Hgb (13.0-17.5) gm/dL Hct (39.0-53.0) % Plt Count (150-450) k/uL BUN 30 H (9-20) mg/dL Creatinine 2.94 H (0.66-1.25) mg/dL Glucose 104 H (74-99) mg/dL POC Glucose (mg/dL) 111 H 219 H (75-99) mg/dL Calcium 8.0 L (8.4-10.2) mg/dL TIBC (228-460) ug/dL Crossmatch 08/30/17 Range/Units 11:48 RBC (4.30-5.90) m/uL Hgb (13.0-17.5) gm/dL Hct (39.0-53.0) % Plt Count (150-450) k/uL BUN (9-20) mg/dL Creatinine (0.66-1.25) mg/dL Glucose (74-99) mg/dL POC Glucose (mg/dL) 180 H (75-99) mg/dL Calcium (8.4-10.2) mg/dL TIBC (228-460) ug/dL Crossmatch Microbiology - Last 24 Hours (Table) 08/28/17 16:45 Urine Culture - Final Urine,Voided Assessment and Plan Plan: Assessment and plan #1 congestive heart failure, diastolic, acute on chronic. Echocardiogram with Doppler study was performed in May which revealed a normal left ventricular systolic function #2 chronic renal failure stage III #3 anemia #4 diabetes, uncontrolled #5 hypertension, untreated #6 hyperlipidemia Plan Cardiac with Doppler study was performed which revealed normal left ventricular systolic function. Because of the patient's kidney function he cannot be initiated on MIKI inhibitor or ARB, we will add hydralazine and nitrates to his medication regime for more optimal blood pressure control. Continue diuresing with IV Lasix. GI evaluation. DNP note has been reviewed, I agree with a documented findings and plan of care. Patient was seen and examined.
--- NOTE | 2017-08-30 15:18 | P.PN ---
Subjective This is a pleasant 51 years old male with past medical history of diabetes mellitus type 1, history of DKA, CTD stage III, anemia, bilateral cataract, he' ll follow-up with Dr. Renteria manager park. Patient was seen by a media production manager for low hemoglobin at 6.2. Repeat hemoglobin in the emergency room was 7.2. Patient denies to me bleeding from anywhere. Patient was going to his doctor for regular follow-up he denies chest pain. However he admits to new exertional dyspnea after some walking.on the chest x-ray there was suspicion for new CHF. patient also was complaining of from progressive bilateral leg swelling. UA was 4+ for blood and protein. FOBT in ED was negative. patient was admitted for possible acute CHF on the top of CKD and anemia No new dizziness or syncope. No change in urine or bowel habits. No fever In the ED patient vitals look stable, urine is positive for moderate blood, and 4+ protein and 4+ glucose in the urine. FOBT: Negative. Sodium 137, potassium 3.9. Creatinine high at 2.9, it was 2.9 on 08/20/2017, and 2.5 on 07/2017. AST and ALP are slightly elevated at 64 and 81 respectively. Total bilirubin is within normal limits at 0.3. Troponin is negative area proBNP is 4190. INR is 1.0. WC4.8K, hemoglobin 7.2, platelets low at 107, previous thrombocytopenia is noticed since 01/2017 chest x-ray shows new mild congestive heart failure compelled to old exam as per radiology report. Review of EKG shows normal sinus rhythm at [address]-T changes, QTC is 445. Also the emergency room he received 1 dose of Lasix 20 mg,. Patient is already on aspirin. Objective - Vital Signs Vital signs: Vital Signs Temp 98.3 F 08/30/17 11:30 Pulse 99 08/30/17 11:30 Resp 18 08/30/17 11:30 BP 165/95 08/30/17 14:31 Pulse Ox 99 08/30/17 11:30 Intake & Output 08/29/17 08/30/17 08/30/17 18:59 06:59 18:59 Intake Total 1990 840 Output Total 350 3000 525 Balance 1640 -3000 315 Weight 70.4 kg 68.1 kg Intake: Oral 1680 840 Blood Product 310 Rc As-1 Unit 310 [id number] Output: Urine 350 3000 525 Other: Voiding Method Urinal Urinal Urinal # Voids 1 2 1 - Exam GENERAL: The patient is alert and oriented x3, not in any acute distress. Well developed, well nourished. HEENT: Pupils are round and equally reacting to light. EOMI. No scleral icterus. No conjunctival pallor. Normocephalic, atraumatic. No pharyngeal erythema. No thyromegaly. CARDIOVASCULAR: S1 and S2 present. No murmurs, rubs, or gallops. PULMONARY: Chest is clear to auscultation, no wheezing or crackles. ABDOMEN: Soft, nontender, nondistended, normoactive bowel sounds. No palpable organomegaly. MUSCULOSKELETAL: No joint swelling or deformity. EXTREMITIES: No cyanosis, clubbing, or pedal edema. NEUROLOGICAL: Gross neurological examination did not reveal any focal deficits. SKIN: No rashes. - Labs CBC & Chem 7: 08/30/17 05:55 08/30/17 05:55 Labs: Abnormal Lab Results - Last 24 Hours (Table) 08/28/17 08/29/17 08/29/17 Range/Units 16:00 10:52 16:58 RBC (4.30-5.90) m/uL Hgb (13.0-17.5) gm/dL Hct (39.0-53.0) % Plt Count (150-450) k/uL BUN (9-20) mg/dL Creatinine (0.66-1.25) mg/dL Glucose (74-99) mg/dL POC Glucose (mg/dL) 170 H (75-99) mg/dL Calcium (8.4-10.2) mg/dL TIBC 220 L (228-460) ug/dL Crossmatch See Detail 08/29/17 08/30/17 08/30/17 Range/Units 20:51 05:55 05:55 RBC 2.52 L (4.30-5.90) m/uL Hgb 7.6 L (13.0-17.5) gm/dL Hct 22.1 L (39.0-53.0) % Plt Count 100 L (150-450) k/uL BUN 30 H (9-20) mg/dL Creatinine 2.94 H (0.66-1.25) mg/dL Glucose 104 H (74-99) mg/dL POC Glucose (mg/dL) 112 H (75-99) mg/dL Calcium 8.0 L (8.4-10.2) mg/dL TIBC (228-460) ug/dL Crossmatch 08/30/17 08/30/17 08/30/17 Range/Units 06:18 10:03 11:48 RBC (4.30-5.90) m/uL Hgb (13.0-17.5) gm/dL Hct (39.0-53.0) % Plt Count (150-450) k/uL BUN (9-20) mg/dL Creatinine (0.66-1.25) mg/dL Glucose (74-99) mg/dL POC Glucose (mg/dL) 111 H 219 H 180 H (75-99) mg/dL Calcium (8.4-10.2) mg/dL TIBC (228-460) ug/dL Crossmatch Microbiology - Last 24 Hours (Table) 08/28/17 16:45 Urine Culture - Final Urine,Voided Assessment and Plan Plan: -Anemia, hemoglobin on admission 7.2. We'll do anemia workup with iron studies plus B12/folate. Repeat FOBT: Pending. Monitor hemoglobin. Status post one unit of blood transfusion. We'll consider GI consult: Pending -Acute on chronic diastolic CHF, pulmonary congestion per radiology report on CXR. ProBNP 4000+. Troponin negative. EKG which no significant ST-T changes. cardiology consult is appreciated. echo: Ejection fraction 55-60% with moderate LVH. Patient on Lasix 60 mg twice a day -Chronic kidney disease, creatinine 2.9. There is proteinuria and hematuria. Nephrology consult is appreciated. Increase Lasix to 60 mg twice a day. Low- salt diet and fluid restriction to 1200 per day. -Bilateral leg swelling: Venous Doppler to rule out DVT: negative, cyst in the groin with large lymph nodes seen in the groin as per report,call surgical consult -Diabetes mellitus, insulin-dependent. Patient has his on regimen which was implemented. Follow-up ISS -Hypertension, continue with same treatment -Hyperlipidemia continue with Lipitor DVT Prophylaxis: Hold Subcutaneous heparin. In view of dropping hemoglobin however his FOBT is negative. We going to check FOBT again. mechanical Px GI prophylaxis: Pepcid PT/OT: Pending Prognosis guarded
[2017-08-30] MEDS: hydrALAZINE HCL 25 MG TAB PO SCH ×2 (15:27→21:22)
--- NOTE | 2017-08-30 16:06 | PN ---
PROGRESS NOTE The patient is seen for followup for chronic kidney disease, and me overload. The patient's creatinine has been staying at about 2.9 mg/dL. He states he is feeling better. He is maintained on IV Lasix 60 mg q.12 hours. His weight is down from 73 kg on admission to 68, currently. The 24 hour urine output is documented at 3.3 L. PHYSICAL EXAMINATION: On examination today, blood pressure was 170/109, heart rate 99 per minute. Patient is afebrile. Examination of the heart S1, S2. Examination of the lungs bilateral breath sounds are heard. Decreased breath sounds at bases. Abdomen is soft, nontender. Examination of lower extremities shows edema 2+ bilaterally. [employer] exam is grossly intact. LABS SHOW: Sodium 139, potassium 3.7, BUN 30, serum creatinine 2.94, hemoglobin 7.6 g/dL. ASSESSMENT: 1. Acute kidney injury secondary to severe anemia as well as cardiorenal syndrome, currently nonoliguric. Serum creatinine is slightly higher at 2.9 from 2.7 yesterday. The patient is currently maintained on IV Lasix which I will continue. His weight is down significantly. Overall, he is feeling better. However, he continues to be edematous. There are no nephrotoxic agents on board. The patient did have a unit of packed RBCs transfusion for hemoglobin of 6.7 yesterday. 2. Chronic kidney disease secondary to diabetic nephropathy with baseline creatinine about 1.5-2 and NKF stage III. 3. Acute anemia. No active bleeding noted, status post packed RBCs transfusion. 4. Diastolic heart failure. Echocardiogram on this admission showed ejection fraction of 55-60% with LVH. PLAN: Continue current dose of IV Lasix. Repeat labs in a.m. Continue to avoid nephrotoxic agents to avoid hypotension. MMODL / IJN: [id number] /
[2017-08-30 17:01] LABS: Glucose,Whole Blood 178 mg/dL (75-99)
[2017-08-30] MEDS: CARVEDILOL 12.5 MG TAB PO SCH (18:01)
[2017-08-30] MEDS: INSULIN DETEMIR 100 UNIT/ML 10 ML VIAL SQ SCH (18:07)
[2017-08-30 21:04] LABS: Glucose,Whole Blood 206 mg/dL (75-99)
[2017-08-30] MEDS: ASPIRIN 81 MG PO SCH (21:22)
[2017-08-30] MEDS: ATORVASTATIN 10 MG TAB PO SCH (21:22)
[2017-08-31 06:02] LABS: Glucose,Whole Blood 161 mg/dL (75-99)
[2017-08-31 06:48] LABS: Basophils % (A) 0 %; Eosinophils # (A) 0.3 k/uL (0-0.7); Eosinophils % (A) 5 %; HCT 23.1 % (39.0-53.0); HGB 8.1 gm/dL (13.0-17.5); Lymphocytes # (A) 1.5 k/uL (1.0-4.8); Lymphocytes % (A) 27 %; MCH 30.3 pg (25.0-35.0); MCHC 35.1 g/dL (31.0-37.0); MCV 86.3 fL (80.0-100.0); Mean Platelet Volume 7.8; Monocytes # (A) 0.4 k/uL (0-1.0); Monocytes % (A) 7 %; Neutrophils # (A) 3.3 k/uL (1.3-7.7); Neutrophils % (A) 60 %; Platelet Count 117 k/uL (150-450); RBC 2.68 m/uL (4.30-5.90); RDW 13.7 % (11.5-15.5); WBC 5.6 k/uL (3.8-10.6)
[2017-08-31 07:01] LABS: Calcium 8.3 mg/dL (8.4-10.2); Potassium 3.5 mmol/L (3.5-5.1)
[2017-08-31] MEDS: SUCRALFATE 1 GM TAB PO SCH ×2 (07:12→17:22)
[2017-08-31] MEDS: CARVEDILOL 12.5 MG TAB PO SCH ×2 (07:12→17:22)
[2017-08-31] MEDS: INSULIN ASPART 100 UNIT/ML 1 ML 10 ML VIAL SQ SCH ×3 (07:12→17:23)
[2017-08-31] MEDS: hydrALAZINE HCL 25 MG TAB PO SCH ×2 (07:56→17:22)
[2017-08-31] MEDS: FAMOTIDINE 20 MG/2 ML VIAL IV SCH (07:57)
[2017-08-31] MEDS: ISOSORBIDE MONONITRATE ER 30 MG TAB.ER.24H PO SCH (07:57)
[2017-08-31] MEDS: FUROSEMIDE 10 MG/ML 10 ML VIAL IV SCH (07:57)
[2017-08-31 08:10] VITALS: RESP 18
--- NOTE | 2017-08-31 09:05 | P.GSCN ---
History of Present Illness Consult date: 08/31/17 Reason for Consult: Right popliteal cyst, right inguinal lymph nodes History of present illness: This a 31-year-old male who was admitted to the hospital with congestive heart failure. Patient had significant bilateral lower extremity edema. The patient' s been diuresed. Patient underwent a Doppler study to rule out DVT. He is found have a 3 x 1 cm cyst in the popliteal fossa as well as some right lymphadenopathy. Patient denies any masses palpable in his posterior knee area he denies any pain in his groin. Past Medical History Past Medical History: Diabetes Mellitus, Eye Disorder Additional Past Medical History / Comment(s): IDDM type I, DKA, CKD stage III, anemia, bilateral cataracts, bilateral eye pain since laser surgery April 2017 due to retinal bleeds and since has had increased difficulty with vision-saw Dr. Renteria (opthamologist) and states he was told it could be neurological. History of Any Multi-Drug Resistant Organisms: None Reported Past Surgical History: Hernia Repair Additional Past Surgical History / Comment(s): 04/2017 bilateral laser eye surgery for retinal bleeds unsuccessful, colonoscopy Past Anesthesia/Blood Transfusion Reactions: No Reported Reaction Past Psychological History: No Psychological Hx Reported Additional Psychological History / Comment(s): Pt resides with his spouse. They have 3 cats. He is independent. 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 Smoking Status: Current every day smoker Past Alcohol Use History: Rare Additional Past Alcohol Use History / Comment(s): started smoking in 2001 down to 0.5 ppd. Past Drug Use History: None Reported - Past Family History Father Family Medical History: No Reported History Additional Family Medical History / Comment(s): Father is healthy Mother Family Medical History: No Reported History Additional Family Medical History / Comment(s): Mother is healthy. Medications and Allergies Home Medications Medication Instructions Recorded Confirmed Type Insulin Aspart [NovoLOG See Protocol SQ AC-TID 01/28/17 08/28/17 History (formulary)] Atorvastatin Calcium [Lipitor] 10 mg PO HS #30 tab 05/30/17 08/28/17 Rx Aspirin EC [Ecotrin Low Dose] 81 mg PO HS 06/17/17 08/28/17 History Insulin Glargine,Hum.rec.anlog 10 units SQ HS@1800 06/17/17 08/28/17 History [Ihsan Alvarado] Multivitamins, Thera [Multivitamin] 1 tab PO DAILY #30 tablet 06/20/17 08/28/17 Rx Omeprazole 20 mg PO DAILY 08/28/17 08/28/17 History Sucralfate [Carafate] 1 gm PO BID 08/28/17 08/28/17 History Allergies Allergy/AdvReac Type Severity Reaction Status Date / Time No Known Allergies Allergy Verified 08/28/17 16:13 Surgical - Exam Vital Signs Temp Pulse Resp BP Pulse Ox 98.4 F 94 20 129/79 99 08/28/17 15:41 08/28/17 15:41 08/28/17 15:41 08/28/17 15:41 08/28/17 15:41 - General well developed, no distress - Eyes PERRL - ENT normal pinna, normal nares - Neck no masses - Respiratory normal expansion - Cardiovascular Rhythm: regular - Abdomen Abdomen: soft, non tender - Musculoskeletal No palpable cystic area of the right popliteal fossa. There are some palpable lymph nodes the right groin. Results - Labs 08/31/17 05:49 08/31/17 05:49 Abnormal Lab Results - Last 24 Hours (Table) 08/30/17 08/30/17 08/30/17 Range/Units 10:03 11:48 16:58 RBC (4.30-5.90) m/uL Hgb (13.0-17.5) gm/dL Hct (39.0-53.0) % Plt Count (150-450) k/uL Carbon Dioxide (22-30) mmol/L BUN (9-20) mg/dL Creatinine (0.66-1.25) mg/dL Glucose (74-99) mg/dL POC Glucose (mg/dL) 219 H 180 H 178 H (75-99) mg/dL Calcium (8.4-10.2) mg/dL 08/30/17 08/31/17 08/31/17 Range/Units 21:02 05:38 05:49 RBC 2.68 L (4.30-5.90) m/uL Hgb 8.1 L (13.0-17.5) gm/dL Hct 23.1 L (39.0-53.0) % Plt Count 117 L (150-450) k/uL Carbon Dioxide (22-30) mmol/L BUN (9-20) mg/dL Creatinine (0.66-1.25) mg/dL Glucose (74-99) mg/dL POC Glucose (mg/dL) 206 H 161 H (75-99) mg/dL Calcium (8.4-10.2) mg/dL 08/31/17 Range/Units 05:49 RBC (4.30-5.90) m/uL Hgb (13.0-17.5) gm/dL Hct (39.0-53.0) % Plt Count (150-450) k/uL Carbon Dioxide 33 H (22-30) mmol/L BUN 32 H (9-20) mg/dL Creatinine 3.30 H (0.66-1.25) mg/dL Glucose 136 H (74-99) mg/dL POC Glucose (mg/dL) (75-99) mg/dL Calcium 8.3 L (8.4-10.2) mg/dL Diabetes panel 08/31/17 Range/Units 05:49 Sodium 139 (137-145) mmol/L Potassium 3.5 (3.5-5.1) mmol/L Chloride 104 (98-107) mmol/L Carbon Dioxide 33 H (22-30) mmol/L BUN 32 H (9-20) mg/dL Creatinine 3.30 H (0.66-1.25) mg/dL Glucose 136 H (74-99) mg/dL Calcium 8.3 L (8.4-10.2) mg/dL Calcium panel 08/31/17 Range/Units 05:49 Calcium 8.3 L (8.4-10.2) mg/dL Pituitary panel 08/31/17 Range/Units 05:49 Sodium 139 (137-145) mmol/L Potassium 3.5 (3.5-5.1) mmol/L Chloride 104 (98-107) mmol/L Carbon Dioxide 33 H (22-30) mmol/L BUN 32 H (9-20) mg/dL Creatinine 3.30 H (0.66-1.25) mg/dL Glucose 136 H (74-99) mg/dL Calcium 8.3 L (8.4-10.2) mg/dL Adrenal panel 08/31/17 Range/Units 05:49 Sodium 139 (137-145) mmol/L Potassium 3.5 (3.5-5.1) mmol/L Chloride 104 (98-107) mmol/L Carbon Dioxide 33 H (22-30) mmol/L BUN 32 H (9-20) mg/dL Creatinine 3.30 H (0.66-1.25) mg/dL Glucose 136 H (74-99) mg/dL Calcium 8.3 L (8.4-10.2) mg/dL Assessment and Plan Assessment: History of his heart failure and significant edema of lower service. The cystic lesion seen on the DVT workup was not palpable. The patient does have some minimal right inguinal lymph nodes. I would recommend observation this point. He should've a repeat ultrasound performed in 3 months.
[2017-08-31 10:06] LABS: Glucose,Whole Blood 152 mg/dL (75-99)
[2017-08-31 11:54] LABS: Glucose,Whole Blood 201 mg/dL (75-99)
--- NOTE | 2017-08-31 13:43 | PN ---
PROGRESS NOTE Mr. Hernandez 31-year-old male who presented with symptoms of progressive dyspnea, was noted to have renal failure, hypertension, and anemia. He is feeling much better today. His breathing is better. He is ambulating. He is denying any chest pain. He denies any dizziness. He is anxious to go home. He had an echocardiogram that revealed preserved ventricular size and systolic function. He continues to be on hydralazine 25 mg 3 times a day, Imdur 30 mg daily, Lipitor 10 mg daily, Coreg 25 mg twice a day, aspirin once a day, Lasix 40 mg IV q.12 hours. PHYSICAL EXAMINATION: Blood pressure 115/60 with a heart in the 80s. LUNGS: Clear. HEART: Regular rate and rhythm. S1, S2. No S3. No rub. ABDOMEN: Soft, nontender. EXTREMITIES: No significant edema. LAB DATA: Revealed BUN and creatinine 32 and 3.3, potassium 3.5. He has lost 4 kg since yesterday. IMPRESSION: 1. Symptoms of progressive dyspnea and peripheral edema improved related to the renal failure and the anemia. 2. Hypertension, controlled. 3. Diabetes mellitus. 4. Chronic kidney disease. RECOMMENDATION: I will stop his IV Lasix and switch him to oral Lasix. Increase his level activity. He may be able to be discharged home soon and followed as an outpatient. MMODL / IJN: [id number] /
--- NOTE | 2017-08-31 14:25 | CONS ---
CONSULTATION REQUESTING PHYSICIAN: Dr. Peck. REASON FOR CONSULTATION: Severe symptomatic anemia, hemoglobin of 6.7 g/dL. HISTORY OF PRESENT ILLNESS: The patient is a 31-year-old pleasant white male with longstanding history of diabetes mellitus diagnosed at age 19, nephrotic syndrome with chronic kidney disease stage III, admitted to hospital with severe symptomatic anemia and hemoglobin of 6.2 g/dL. He received 1 unit of blood transfusion and we are consulted in regards to this anemia. The patient was admitted in June of this year with anemia at which time he underwent an upper endoscopy by Dr. Damon and colonoscopy by Dr. Mckay, which revealed a small and small gastric polyp and small sigmoid polyps. He presently denies any abdominal pain. He reports no nausea or vomiting. Denies any rectal bleeding or melena. No history of recent NSAID use. He received 1 unit of blood transfusion and last hemoglobin is 8.2 g/dL. PAST MEDICAL HISTORY: Significant for chronic kidney disease stage III, insulin-dependent diabetes mellitus diagnosed at age 18, nephrotic syndrome. PAST SURGICAL HISTORY: EGD, colonoscopy in June of 2017, hernia repair, bilateral laser surgery retinal bleeds. MEDICATIONS: At home: NovoLog, Lipitor, aspirin, Humalog, Carafate, multivitamin, Prilosec. ALLERGIES: No known drug allergies. FAMILY HISTORY: Mother and father have no medical problems. REVIEW OF SYSTEMS: CARDIOPULMONARY: No chest pain, shortness of breath. GENITOURINARY: No dysuria or hematuria. MUSCULOSKELETAL: Unremarkable. SKIN: Unremarkable. ENDOCRINE: Unremarkable. PSYCHIATRIC: Unremarkable. NEUROLOGY: Unremarkable. ENT/VISION: Unremarkable. CONSTITUTIONAL: No recent weight loss. No fever, chills, night sweats. PHYSICAL EXAMINATION: He appears comfortable, no apparent distress. VITAL SIGNS: Stable. Blood pressure 151/85, pulse 88. HEENT EXAMINATION: Unremarkable. Conjunctivae pale. Sclerae anicteric. Oral cavity, no lesions. NECK: No JVD or lymph node enlargement. CHEST: Clear to auscultation. HEART: Regular rate and rhythm. ABDOMEN: Soft. Bowel sounds are positive. No organomegaly. EXTREMITIES: No pedal edema. SKIN: No rashes. NEUROLOGIC: Alert and oriented x3. No focal deficits. LABS: WBC 5.1, hemoglobin 6.7, platelets 105. Today hemoglobin is 8.1, BUN 26, creatinine 2.78. Ferritin 295. Iron is 71, TIBC 229, saturation is 32%. IMPRESSION: This is a patient with history of chronic kidney disease stage III and longstanding history of type 1 diabetes mellitus, admitted to hospital with severe symptomatic anemia, hemoglobin 6.7 g/dL requiring 1 unit of blood transfusion. Iron indices are not consistent with iron deficiency anemia. Most likely we are dealing with anemia of chronic disease related to renal insufficiency. Clinically no evidence of active or occult GI blood loss. He did have an EGD and colonoscopy by Dr. Damon/Woody in June of 2017, which revealed a small ulcer in the antrum and sigmoid polyps. RECOMMENDATIONS: 1. Agree with blood transfusion. 2. Since no evidence of iron deficiency anemia and clinically no evidence of GI bleeding, no need for any endoscopy intervention or small bowel capsule endoscopy at this time. Thank you for this consultation. We will sign off. Please call us if needed. MMODL / IJN: [id number] /
[2017-08-31 15:25] VITALS: BP 106/60; PULSE 86; TEMP 97
[2017-08-31 16:52] LABS: Glucose,Whole Blood 239 mg/dL (75-99)
[2017-08-31] MEDS ORDERED: FUROSEMIDE 40 MG TAB PO SCH (17:00)
[2017-08-31 17:14] LABS: Albumin 2.3 g/dL (3.5-5.0); Bilirubin, Delta 0.1 mg/dL (0.0-0.2); Bilirubin,Unconjugated 0.3 mg/dL (0.0-1.1); Total Bilirubin 0.4 mg/dL (0.2-1.3); Total Protein 4.4 g/dL (6.3-8.2)
[2017-08-31] MEDS: INSULIN DETEMIR 100 UNIT/ML 10 ML VIAL SQ SCH (17:29)
--- NOTE | 2017-08-31 18:28 | P.DS ---
Providers Date of admission: 08/28/17 17:29 Attending physician: Khari Oswald MD Consults: 08/28/17 17:30 Consult Physician Routine Consulting Provider: Claire Peck Consult Reason/Comments: ckd, nephrotic syndrome Do you want consulting provider notified?: Yes, Notify in am 08/28/17 17:31 Consult Physician Routine Consulting Provider: Naren Corado Consult Reason/Comments: new onset chf Do you want consulting provider notified?: Yes, Notify in am 08/30/17 14:59 Consult Physician Routine Consulting Provider: Viktoria Arce Consult Reason/Comments: Drop in hemoglobin Do you want consulting provider notified?: Yes 08/30/17 15:23 Consult Physician Routine Consulting Provider: Adan Ashley Consult Reason/Comments: cyst behind knee with lymph nodes in groin Do you want consulting provider notified?: Yes Primary care physician: [facility] Course: This is a pleasant 51 years old male with past medical history of diabetes mellitus type 1, history of DKA, CTD stage III, anemia, bilateral cataract, 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 Patient was seen by a flour mixer for low hemoglobin at 6.2. Repeat hemoglobin in the emergency room was 7.2. Patient denies to me bleeding from anywhere. Patient was going to his doctor for regular follow-up he denies chest pain. However he admits to new exertional dyspnea after some walking.on the chest x-ray there was suspicion for new CHF. patient also was complaining of from progressive bilateral leg swelling. UA was 4+ for blood and protein. FOBT in ED was negative. patient was admitted for possible acute CHF on the top of CKD and anemia No new dizziness or syncope. No change in urine or bowel habits. No fever In the ED patient vitals look stable, urine is positive for moderate blood, and 4+ protein and 4+ glucose in the urine. FOBT: Negative. Sodium 137, potassium 3.9. Creatinine high at 2.9, it was 2.9 on 08/20/2017, and 2.5 on 07/2017. AST and ALP are slightly elevated at 64 and 81 respectively. Total bilirubin is within normal limits at 0.3. Troponin is negative area proBNP is 4190. INR is 1.0. WC4.8K, hemoglobin 7.2, platelets low at 107, previous thrombocytopenia is noticed since 01/2017 chest x-ray shows new mild congestive heart failure compared to old exam as per radiology report. Review of EKG shows normal sinus rhythm at [address]-T changes, QTC is 445. Also the emergency room he received 1 dose of Lasix 20 mg,. Patient is already on aspirin. Patient has been evaluated by flour mixer team and found to have acute kidney injury secondary to severe anemia as well as cardiorenal syndrome which is nonoliguric, on the top of chronic kidney disease secondary to diabetic nephropathy with baseline creatinine 1.5-2. Nephrology team cleared the patient for discharge after he got IV Lasix and start feeling better however he remains to have some edema. Also disability benefits specialist evaluated the patient for diastolic CHF EF 55-60% with LVH on the echocardiogram. Patient was treated conservatively with antihypertensive and Lasix as above , Coreg and hydralazine was added by cardiology team for better control of blood pressure. Patient was cleared by cardiology for discharge His hemoglobin remained stable after received 1 unit of blood transfusion, his hemoglobin today is 8.1, iron profile shows normal iron ,iron saturation and ferritin with low total iron binding capacity at 220 which goes more with anemia of chronic kidney disease. Vitamin B12 was 867 and folate 19.3, FOBT is negative. liver function tests are mildly elevated came back to normal. creatinine is up at 3.3, as per flour mixer recommendation pt can be discharged today and follow up with their office in 2 days to check his labs again including kid function and lytes. pt leg swelling and exertional dyspnea are significantly improved, the recommendation of cardiology and nephrology is to discharge pt on 40 mg of lasix twice a day Dopplers was negative for DVT however shows cystic lesions behind the right knees with some right inguinal lymphadenopathy. Surgical consultation was called. No masses or cysts were felt behind the knee. No surgical intervention indicated. Surgery team recommended follow-up ultrasound in 3 months. on full body exam no LAP was appreciated and no mass or cyst is felt behind the right knee . Risks including but not limited to cancer are explained to the patient and he verbalized understanding and acceptance to do the follow-up as recommended with surgery office and PCP Physical therapist evaluated the patient and recommended home independently Patient was cleared by all consultants, nephrology, cardiology and surgery for discharge. Himself is anxious and eager to go home. Problem list and management plan were discussed with the patient and at bedside upon patient request and they verbalized understanding and acceptance. Patient is found stable and can be discharged home however he needs follow-up as an outpatient. As it is weekend medical staff could not make appointment for the patient. Patient agrees to make appointments as recommended GENERAL: The patient is alert and oriented x3, not in any acute distress. Well developed, well nourished. HEENT: Pupils are round and equally reacting to light. EOMI. No scleral icterus. No conjunctival pallor. Normocephalic, atraumatic. No pharyngeal erythema. No thyromegaly. CARDIOVASCULAR: S1 and S2 present. No murmurs, rubs, or gallops. PULMONARY: Chest is clear to auscultation, no wheezing or crackles. ABDOMEN: Soft, nontender, nondistended, normoactive bowel sounds. No palpable organomegaly. MUSCULOSKELETAL: No joint swelling or deformity. EXTREMITIES: No cyanosis, clubbing, but with mild lateral pedal edema. No cyst or mass has failed behind NEUROLOGICAL: Gross neurological examination did not reveal any focal deficits. SKIN: No rashes. Lymph: No lymphadenopathy was noted in the cervical, bilateral axillary, elbow joint, behind the knees, inguinal, or other places Time spent: More than 35 minutes Patient Condition at Discharge: Fair Plan - Discharge Summary New Discharge Prescriptions: New Carvedilol [Coreg*] 25 mg PO BID-W/MEALS #60 tab Furosemide [Lasix] 40 mg PO 0900,1700 #60 tab hydrALAZINE HCL [Apresoline] 25 mg PO TID #90 tab Isosorbide Mononitrate ER [Imdur] 30 mg PO DAILY #30 tab.er.24h Continue Sucralfate [Carafate] 1 gm PO BID Omeprazole 20 mg PO DAILY No Action Insulin Aspart [NovoLOG (formulary)] See Protocol SQ AC-TID Atorvastatin Calcium [Lipitor] 10 mg PO HS #30 tab Insulin Glargine,Hum.rec.anlog [Toujeo Solostar] 10 units SQ HS@1800 Aspirin EC [Ecotrin Low Dose] 81 mg PO HS Multivitamins, Thera [Multivitamin (formulary)] 1 tab PO DAILY #30 tablet Discharge Medication List Insulin Aspart [NovoLOG (formulary)] See Protocol SQ AC-TID 01/28/17 [History] Atorvastatin Calcium [Lipitor] 10 mg PO HS #30 tab 05/30/17 [Rx] Aspirin EC [Ecotrin Low Dose] 81 mg PO HS 06/17/17 [History] Insulin Glargine,Hum.rec.anlog [Ihsan Rolandostmarie] 10 units SQ HS@1800 06/17/17 [ History] Multivitamins, Thera [Multivitamin (formulary)] 1 tab PO DAILY #30 tablet [Rx] Omeprazole 20 mg PO DAILY 08/28/17 [History] Sucralfate [Carafate] 1 gm PO BID 08/28/17 [History] Carvedilol [Coreg*] 25 mg PO BID-W/MEALS #60 tab 08/31/17 [Rx] Furosemide [Lasix] 40 mg PO 0900,1700 #60 tab 08/31/17 [Rx] Isosorbide Mononitrate ER [Imdur] 30 mg PO DAILY #30 tab.er.24h 08/31/17 [Rx] hydrALAZINE HCL [Apresoline] 25 mg PO TID #90 tab 08/31/17 [Rx] Follow up Appointment(s)/Referral(s): Claire Peck MD [STAFF PHYSICIAN] - 1-2 Days (Please follow-up with Dr. Peck office in 2 days, you will need to check your blood test (basic metabolic panel ) with your doctor ) Naren Corado MD [STAFF PHYSICIAN] - 2 Weeks (Please call office during normal business hours to make an appointment) Sahra Hurtado MD [Primary Care Provider] - 1 Week (Please make an appointment during normal business hours) Adan Ashley MD [STAFF PHYSICIAN] - 2 Weeks (For the cystic lesion behind your right knee, and right inguinal enlarged lymph nodes, your will need to repeat imaging/ultrasound in 3 months) Patient Instructions/Handouts: Heart Failure (DC), Chronic Kidney Disease Diet (DC) Activity/Diet/Wound Care/Special Instructions: Renal diet Activity as tolerated Discharge Disposition: HOME SELF-CARE
[2017-08-31] MEDS ORDERED: FUROSEMIDE 10 MG/ML 10 ML VIAL IV SCH (21:00)
--- NOTE | 2017-09-01 07:14 | PN ---
PROGRESS NOTE Patient was seen this morning for followup for acute kidney injury and volume overload. Volume status has improved significantly with weight down to 64.7 from 78.1 on initial admission. Serum creatinine is up to 3.3 from 2.9 on admission. Previous creatinine had been about 1.9 to 1.6 mg/dL. PHYSICAL EXAMINATION: On examination today, blood pressure was 115/69, heart rate 88 per minute. He is afebrile. Examination of the heart: S1, S2. Examination of the lungs: Bilateral breath sounds. Abdomen is soft, nontender. Examination lower extremity shows much improved edema, only trace edema noted in ankles. The patient does have significant tattoos on his back and on his arms. LABS: Show sodium 139, potassium 3.5, BUN 32, serum creatinine 2.3, hemoglobin 8.1 g/dL. ASSESSMENT: 1. Acute kidney injury associated with severe volume overload and recent diuresis. Renal function is slightly impaired. However, patient wants to go home. It is okay to switch him to oral Lasix, but he will need repeat labs to be done in about 2 days post discharge. 2. Severe volume overload, significantly improved. 3. Chronic kidney disease, stage III, baseline creatinine 1.5-2 secondary to diabetic nephropathy. 4. Diastolic heart failure, acute on top of chronic. PLAN: The patient can be switched to Lasix 40 mg b.i.d. and he can be discharged with repeat labs to be done in about 10 days post discharge. He needs follow up as outpatient in about 1 week's time. MMAUREAL / SALASN: [id number] /
== END 2017-08-31 18:42 | disposition home or self-care (01) | DRG 291 ==
LOC: EC 15:34 → 6SEL 17:29 → UNDODISIN 08-30 12:34
PROVIDERS: ADMIT Internal Medicine; ATTEND Internal Medicine
PROC: 30230N1 Transfusion of Nonautologous Red Blood Cells into Peripheral Vein, Open Approach (ICD-10-PCS; principal; 2017-08-28)
DX: I13.0 Hypertensive heart and chronic kidney disease with heart failure and stage 1 through stage 4 chronic kidney disease, or unspecified chronic kidney disease (principal); I50.33 Acute on chronic diastolic (congestive) heart failure; N17.0 Acute kidney failure with tubular necrosis; N04.9 Nephrotic syndrome with unspecified morphologic changes; D63.1 Anemia in chronic kidney disease; E10.21 Type 1 diabetes mellitus with diabetic nephropathy; E10.22 Type 1 diabetes mellitus with diabetic chronic kidney disease; E10.65 Type 1 diabetes mellitus with hyperglycemia; E78.5 Hyperlipidemia, unspecified; F17.210 Nicotine dependence, cigarettes, uncomplicated; M71.21 Synovial cyst of popliteal space [Baker], right knee; N18.3 Chronic kidney disease, stage 3 (moderate); F41.9 Anxiety disorder, unspecified; H26.9 Unspecified cataract; H57.13 Ocular pain, bilateral; R31.9 Hematuria, unspecified; Z79.4 Long term (current) use of insulin; Z79.82 Long term (current) use of aspirin; Z79.899 Other long term (current) drug therapy; Z87.11 Personal history of peptic ulcer disease
CPT/HCPCS: 36415; 71046; 80048; 80053; 80076; 81001; 82272; 82607; 82728; 82746; 82803; 83540; 83550; 83605; 83735; 83880; 84484; 85025; 85027; 85610; 86850; 86900; 86901; 86920; 87086; 93005; 93306; 93970; 96374; 99285

== ENCOUNTER → 2017-09-10 | Outpatient (CLI) | payer MEDICAID ==
[2017-09-10 07:43] LABS: HCT 26.5 % (39.0-53.0); HGB 9.1 gm/dL (13.0-17.5); MCHC 34.3 g/dL (31.0-37.0); MCV 87.3 fL (80.0-100.0); Mean Platelet Volume 8.5; Platelet Count 112 k/uL (150-450); RBC 3.04 m/uL (4.30-5.90); RDW 13.3 % (11.5-15.5); WBC 5.6 k/uL (3.8-10.6)
[2017-09-10 08:10] LABS: Albumin 2.5 g/dL (3.5-5.0); Calcium 8.3 mg/dL (8.4-10.2); Phosphorus 5.7 mg/dL (2.5-4.5); Potassium 3.6 mmol/L (3.5-5.1); Total Bilirubin 0.4 mg/dL (0.2-1.3); Total Protein 4.7 g/dL (6.3-8.2)
[2017-09-10 16:27] LABS: Parathyroid Hormone Intact 91.7 pg/mL (14.0-72.0)
[2017-09-10 17:36] LABS: Hemoglobin A1C 5.4 % (4.0-6.0)
[2017-09-10 17:46] LABS: DNA Double-Stranded NEGATIVE (NEGATIVE)
[2017-09-10 17:57] LABS: Iron Saturation 31.11 (15.00-50.00)
[2017-09-10 18:24] LABS: Hepatitis A Antibody IgM Non-Reactive (Non-Reactive); Hepatitis B Core IgM Non-Reactive (Non-Reactive)
[2017-09-11 14:20] LABS: C-ANCA <1:20 Titer (<1:20); P-ANCA <1:20 Titer (<1:20)
== END | disposition home or self-care (01) ==
LOC: LABWHC1 07:11
PROVIDERS: ATTEND Nurse Practitioner Family
DX: N17.9 Acute kidney failure, unspecified (principal); R80.9 Proteinuria, unspecified
CPT/HCPCS: 36415; 80053; 80074; 82043; 82306; 82570; 82728; 83036; 83516; 83540; 83550; 83883; 83970; 84100; 84550; 85027; 86038; 86160; 86162; 86225; 86255

== ENCOUNTER → 2017-09-11 | Outpatient (CLI) | payer MEDICAID ==
[2017-09-11 09:08] LABS: Collection Time,Urine 24 hrs; Total Volume 24 Hour,Urine 2200 mls (800-1800)
[2017-09-11 10:40] LABS: Total Protein 24 Hour,Urine 11044 mg/24hr (42.0-225.0)
== END | disposition home or self-care (01) ==
LOC: LABWHC1 07:21
PROVIDERS: ATTEND Nurse Practitioner Family
DX: N17.9 Acute kidney failure, unspecified (principal); R80.9 Proteinuria, unspecified
CPT/HCPCS: 81050; 82043; 82570; 84156; 84166

== ENCOUNTER 2017-09-27 14:35 | Emergency (ER) | payer MEDICAID ==
[2017-09-27 14:47] VITALS: RESP 18
[2017-09-27] MEDS ORDERED: ONDANSETRON 4 MG/2 ML VIAL IVP STA (14:55)
[2017-09-27] MEDS ORDERED: SODIUM CHLORIDE 0.9% 1,000 ML IV STA (14:55)
[2017-09-27 15:04] LABS: Glucose,Whole Blood 232 mg/dL (75-99)
--- NOTE | 2017-09-27 15:08 | ED ---
General Adult HPI - General Chief complaint: Nausea/Vomiting/Diarrhea Stated complaint: Nausea Time Seen by Provider: 09/27/17 14:48 Source: patient Mode of arrival: wheelchair Limitations: no limitations - History of Present Illness Initial comments: Dictation was produced using [employer] dictation software. please excuse any grammatical, word or spelling errors. Chief Complaint: 31-year-old male with insulin-dependent diabetes mellitus, chronic kidney disease, anemia presents with nausea and vomiting 4 days. History of Present Illness: This began 4 days ago. He has been having multiple episodic bouts of nausea. He also had some episodes of nonbilious nonbloody emesis. Patient is a history of chronic kidney disease. He is followed by nephrology. He was admitted to the hospital last month where he was evaluated for anemia and lower extremity swelling. Patient states his symptoms are episodic. No exacerbating or mitigating factors. Denies any pain complaints. No constitutional symptoms The ROS documented in this emergency department record has been reviewed and confirmed by me. Those systems with pertinent positive or negative responses have been documented in the HPI. All other systems are other negative and/or noncontributory. - Related Data Home Medications Medication Instructions Recorded Confirmed Insulin Aspart [NovoLOG See Protocol SQ AC-TID 01/28/17 08/28/17 (formulary)] Aspirin EC [Ecotrin Low Dose] 81 mg PO HS 06/17/17 08/28/17 Insulin Glargine,Hum.rec.anlog 10 units SQ HS@1800 06/17/17 08/28/17 [Toubhavna Solostar] Omeprazole 20 mg PO DAILY 08/28/17 08/28/17 Sucralfate [Carafate] 1 gm PO BID 08/28/17 08/28/17 Previous Rx's Medication Instructions Recorded Atorvastatin Calcium [Lipitor] 10 mg PO HS #30 tab 05/30/17 Multivitamins, Thera [Multivitamin 1 tab PO DAILY #30 tablet 06/20/17 (formulary)] Carvedilol [Coreg*] 25 mg PO BID-W/MEALS #60 tab 08/31/17 Furosemide [Lasix] 40 mg PO 0900,1700 #60 tab 08/31/17 Isosorbide Mononitrate ER [Imdur] 30 mg PO DAILY #30 tab.er.24h 08/31/17 hydrALAZINE HCL [Apresoline] 25 mg PO TID #90 tab 08/31/17 Ondansetron Odt [Zofran Odt] 4 mg PO Q8HR PRN #16 tab 09/27/17 Allergies Allergy/AdvReac Type Severity Reaction Status Date / Time No Known Allergies Allergy Verified 09/27/17 14:43 Review of Systems ROS Statement: Those systems with pertinent positive or pertinent negative responses have been documented in the HPI. ROS Other: All systems not noted in ROS Statement are negative. Past Medical History Past Medical History: Diabetes Mellitus, Eye Disorder Additional Past Medical History / Comment(s): IDDM type I, DKA, CKD stage III, anemia, bilateral cataracts, bilateral eye pain since laser surgery April 2017 due to retinal bleeds and since has had increased difficulty with vision-saw Dr. Renteria (opthamologist) and states he was told it could be neurological. History of Any Multi-Drug Resistant Organisms: None Reported Past Surgical History: Hernia Repair Additional Past Surgical History / Comment(s): 04/2017 bilateral laser eye surgery for retinal bleeds unsuccessful, colonoscopy Past Anesthesia/Blood Transfusion Reactions: No Reported Reaction Past Psychological History: No Psychological Hx Reported Smoking Status: Current every day smoker Past Alcohol Use History: None Reported, Rare Past Drug Use History: None Reported - Past Family History Father Family Medical History: No Reported History Additional Family Medical History / Comment(s): Father is healthy Mother Family Medical History: No Reported History Additional Family Medical History / Comment(s): Mother is healthy. General Exam - General Exam Comments Initial Comments: PHYSICAL EXAM: General Impression: Alert and oriented x3, not in acute distress, pale HEENT: Normocephalic atraumatic, extra-ocular movements intact, pupils equal and reactive to light bilaterally, mucous membranes moist. Cardiovascular: Heart regular rate and rhythm, S1&S2 audible, no murmurs, rubs or gallops Chest: Lungs clear to auscultation bilaterally, no rhonchi, no wheeze, no rales Abdomen: Bowel sounds present, abdomen soft, non-tender, non-distended, no organomegaly Musculoskeletal: Pulses present and equal in all extremities, no peripheral edema Motor: Power 5/5 bilaterally, no focal deficits noted Neurological: CN II-XII grossly intact, no focal motor or sensory deficits noted Skin: Intact with no visualized rashes Psych: Normal affect and mood Limitations: no limitations Course Vital Signs 09/27/17 09/27/17 09/27/17 14:44 15:30 17:47 Temperature 98.9 F Pulse Rate 89 83 85 Respiratory 18 18 18 Rate Blood Pressure 127/79 160/88 132/72 O2 Sat by Pulse 96 96 96 Oximetry Medical Decision Making - Medical Decision Making ED course: 31-year-old male presents with chief complaint of nausea and vomiting as upon arrival are within acceptable limits.Laboratory evaluation obtained. Hemoglobin stable at 7.6 which is around his baseline. Metabolic panel shows no acute processes. Patient has no anion gap and normal bicarbonate level. Urinalysis is positive for 1+ ketones. Patient given intravenous fluids and antinausea medications. He was observed in emergency department for several hours with stable medical condition. Patient feels much better. Patient to be discharge she is told to follow up with his cafeteria cook sooner rather than later. He does have a scheduled appointment is October how is told to move his appointment up. So told to follow-up with his primary care physician. He is given prescription for Zofran. He is told to hydrate himself appropriately. Told to come back to [facility] department if he has any worsening symptoms. - Lab Data Result diagrams: 09/27/17 15:12 09/27/17 15:12 Lab Results 09/27/17 09/27/17 09/27/17 Range/Units 15:03 15:12 15:12 WBC 6.3 (3.8-10.6) k/uL RBC 2.48 L (4.30-5.90) m/uL Hgb 7.6 L D (13.0-17.5) gm/dL Hct 20.4 L (39.0-53.0) % MCV 82.3 D (80.0-100.0) fL MCH 30.5 (25.0-35.0) pg MCHC 37.1 H (31.0-37.0) g/dL RDW 13.1 (11.5-15.5) % Plt Count 72 L (150-450) k/uL Neutrophils % 67 % Lymphocytes % 23 % Monocytes % 6 % Eosinophils % 2 % Basophils % 1 % Neutrophils # 4.2 (1.3-7.7) k/uL Lymphocytes # 1.5 (1.0-4.8) k/uL Monocytes # 0.4 (0-1.0) k/uL Eosinophils # 0.1 (0-0.7) k/uL Basophils # 0.0 (0-0.2) k/uL Hyperchromasia Slight Sodium 136 L (137-145) mmol/L Potassium 3.4 L (3.5-5.1) mmol/L Chloride 100 (98-107) mmol/L Carbon Dioxide 27 (22-30) mmol/L Anion Gap 9 mmol/L BUN 42 H (9-20) mg/dL Creatinine 4.10 H (0.66-1.25) mg/dL Est GFR (CKD-EPI)AfAm 21 (>60 ml/min/1.73 sqM) Est GFR (CKD-EPI)NonAf 18 (>60 ml/min/1.73 sqM) Glucose 208 H (74-99) mg/dL POC Glucose (mg/dL) 232 H (75-99) mg/dL POC Glu Contractor Buyer ID [employer], Jihan Calcium 7.9 L (8.4-10.2) mg/dL Total Bilirubin 1.0 (0.2-1.3) mg/dL AST 25 (17-59) U/L ALT 41 (21-72) U/L Alkaline Phosphatase 83 (38-126) U/L Total Protein 4.5 L (6.3-8.2) g/dL Albumin 2.3 L (3.5-5.0) g/dL Lipase 27 (23-300) U/L Urine Color Urine Appearance (Clear) Urine pH (5.0-8.0) Ur Specific [place] (1.001-1.035) Urine Protein (Negative) Urine Glucose (UA) (Negative) Urine Ketones (Negative) Urine Blood (Negative) Urine Nitrite (Negative) Urine Bilirubin (Negative) Urine Urobilinogen (<2.0) mg/dL Ur Leukocyte Esterase (Negative) Urine RBC (0-5) /hpf Urine WBC (0-5) /hpf Ur Squamous Epith Cells (0-4) /hpf Amorphous Sediment (None) /hpf Hyaline Casts (0-2) /lpf Urine Mucus (None) /hpf 09/27/17 Range/Units 16:24 WBC (3.8-10.6) k/uL RBC (4.30-5.90) m/uL Hgb (13.0-17.5) gm/dL Hct (39.0-53.0) % MCV (80.0-100.0) fL MCH (25.0-35.0) pg MCHC (31.0-37.0) g/dL RDW (11.5-15.5) % Plt Count (150-450) k/uL Neutrophils % % Lymphocytes % % Monocytes % % Eosinophils % % Basophils % % Neutrophils # (1.3-7.7) k/uL Lymphocytes # (1.0-4.8) k/uL Monocytes # (0-1.0) k/uL Eosinophils # (0-0.7) k/uL Basophils # (0-0.2) k/uL Hyperchromasia Sodium (137-145) mmol/L Potassium (3.5-5.1) mmol/L Chloride (98-107) mmol/L Carbon Dioxide (22-30) mmol/L Anion Gap mmol/L BUN (9-20) mg/dL Creatinine (0.66-1.25) mg/dL Est GFR (CKD-EPI)AfAm (>60 ml/min/1.73 sqM) Est GFR (CKD-EPI)NonAf (>60 ml/min/1.73 sqM) Glucose (74-99) mg/dL POC Glucose (mg/dL) (75-99) mg/dL POC Glu Contractor Buyer ID Calcium (8.4-10.2) mg/dL Total Bilirubin (0.2-1.3) mg/dL AST (17-59) U/L ALT (21-72) U/L Alkaline Phosphatase (38-126) U/L Total Protein (6.3-8.2) g/dL Albumin (3.5-5.0) g/dL Lipase (23-300) U/L Urine Color Light Yellow Urine Appearance Clear (Clear) Urine pH 6.5 (5.0-8.0) Ur Specific [place] 1.010 (1.001-1.035) Urine Protein 4+ H (Negative) Urine Glucose (UA) 3+ H (Negative) Urine Ketones 1+ H (Negative) Urine Blood Large H (Negative) Urine Nitrite Negative (Negative) Urine Bilirubin Negative (Negative) Urine Urobilinogen <2.0 (<2.0) mg/dL Ur Leukocyte Esterase Negative (Negative) Urine RBC 4 (0-5) /hpf Urine WBC 2 (0-5) /hpf Ur Squamous Epith Cells 1 (0-4) /hpf Amorphous Sediment Rare H (None) /hpf Hyaline Casts 63 H (0-2) /lpf Urine Mucus Rare H (None) /hpf Disposition Clinical Impression: Nausea Disposition: HOME SELF-CARE Instructions: Acute Nausea and Vomiting (ED) Prescriptions: Ondansetron Odt [Zofran Odt] 4 mg PO Q8HR PRN #16 tab PRN Reason: Nausea Is patient prescribed a controlled substance at d/c from ED?: No Referrals: Sahra Hurtado MD [Primary Care Provider] - 1-2 days Time of Disposition: 18:15
[2017-09-27 15:36] LABS: Basophils % (A) 1 %; Eosinophils # (A) 0.1 k/uL (0-0.7); Eosinophils % (A) 2 %; HCT 20.4 % (39.0-53.0); Hyperchromasia Slight; Lymphocytes # (A) 1.5 k/uL (1.0-4.8); Lymphocytes % (A) 23 %; MCH 30.5 pg (25.0-35.0); MCHC 37.1 g/dL (31.0-37.0); Mean Platelet Volume 8.4; Monocytes # (A) 0.4 k/uL (0-1.0); Monocytes % (A) 6 %; Neutrophils # (A) 4.2 k/uL (1.3-7.7); Neutrophils % (A) 67 %; RBC 2.48 m/uL (4.30-5.90); RDW 13.1 % (11.5-15.5); WBC 6.3 k/uL (3.8-10.6)
[2017-09-27 15:38] LABS: HGB 7.6 gm/dL (13.0-17.5); MCV 82.3 fL (80.0-100.0); Platelet Count 72 k/uL (150-450)
[2017-09-27 16:09] LABS: Albumin 2.3 g/dL (3.5-5.0); Calcium 7.9 mg/dL (8.4-10.2); Potassium 3.4 mmol/L (3.5-5.1); Total Protein 4.5 g/dL (6.3-8.2)
[2017-09-27 17:40] LABS: Amorphous Sediment,Urine Rare /hpf; Appearance,Urine Clear (Clear); Bilirubin,Urine Negative (Negative); Blood,Urine Large (Negative); Color,Urine Light Yellow; Glucose,Urine (UA) 3+ (Negative); Hyaline Casts,Urine 63 /lpf (0-2); Ketones,Urine 1+ (Negative); Leukocyte Esterase,Urine Negative (Negative); Mucus,Urine Rare /hpf; Nitrite,Urine Negative (Negative); PH, Urine 6.5 (5.0-8.0); Protein,Urine 4+ (Negative); RBC,Urine 4 /hpf (0-5); Squamous Epithelial Cell,Urine 1 /hpf (0-4); Urobilinogen,Urine <2.0 mg/dL (<2.0); WBC,Urine 2 /hpf (0-5)
[2017-09-27 17:48] VITALS: BP 132/72; PULSE 85
[2017-09-27 18:31] VITALS: TEMP 98
== END 2017-09-27 18:20 | disposition home or self-care (01) ==
LOC: EC 14:35
DX: R11.2 Nausea with vomiting, unspecified (principal); R19.7 Diarrhea, unspecified; E10.22 Type 1 diabetes mellitus with diabetic chronic kidney disease; N18.3 Chronic kidney disease, stage 3 (moderate); F17.200 Nicotine dependence, unspecified, uncomplicated; Z79.82 Long term (current) use of aspirin; Z79.4 Long term (current) use of insulin; Z79.899 Other long term (current) drug therapy
CPT/HCPCS: 96361 ×2; 96374 ×2; 99284 ×2; 36415; 80053; 83690; 85025; 81001; J2405

== ENCOUNTER → 2017-10-15 | Outpatient (CLI) | payer MEDICAID | END | disposition home or self-care (01) | LOC: LABWHC1 07:33 | PROVIDERS: ATTEND Internal Medicine Endocrinology, Diabetes & Metabolism | DX: E10.65 Type 1 diabetes mellitus with hyperglycemia (principal) | CPT/HCPCS: 36415; 82947; 84681 ==

== ENCOUNTER → 2017-10-23 | Outpatient (CLI) | payer MEDICAID ==
[2017-10-23 10:33] LABS: Basophils % (A) 1 %; Eosinophils # (A) 0.2 k/uL (0-0.7); Eosinophils % (A) 4 %; Lymphocytes # (A) 1.8 k/uL (1.0-4.8); Lymphocytes % (A) 38 %; MCH 30.9 pg (25.0-35.0); MCHC 35.7 g/dL (31.0-37.0); MCV 86.6 fL (80.0-100.0); Mean Platelet Volume 7.7; Monocytes # (A) 0.2 k/uL (0-1.0); Monocytes % (A) 5 %; Neutrophils # (A) 2.4 k/uL (1.3-7.7); Neutrophils % (A) 50 %; Platelet Count 100 k/uL (150-450); RBC 2.26 m/uL (4.30-5.90); WBC 4.8 k/uL (3.8-10.6)
[2017-10-23 10:44] LABS: HCT 19.5 % (39.0-53.0)
[2017-10-23 10:58] LABS: Bilirubin, Delta 0.3 mg/dL (0.0-0.2); Bilirubin,Unconjugated 0.1 mg/dL (0.0-1.1); Calcium 7.9 mg/dL (8.4-10.2); Potassium 3.4 mmol/L (3.5-5.1); Total Bilirubin 0.4 mg/dL (0.2-1.3); Total Protein 4.2 g/dL (6.3-8.2)
[2017-10-23 16:50] LABS: HIV 1 AB Non-Reactive (Non-Reactive); HIV AB P24 Non-Reactive (Non-Reactive); HIV P24 AG Non-Reactive (Non-Reactive)
[2017-10-23 16:55] LABS: Hemoglobin A1C 6.5 % (4.0-6.0)
[2017-10-23 19:37] LABS: Iron Saturation 41.85 (15.00-50.00)
[2017-10-24 02:23] LABS: Hepatitis B Core IgM Non-Reactive (Non-Reactive); Hepatitis B Surface AB- Quant 55.3 mIU/mL; Hepatitis C IgG Antibody Non-Reactive (Non-Reactive)
[2017-10-24 16:53] LABS: Hepatits C Virus RNA Not detected (Not detected); Hepatits C Virus RNA, Quant <12 IU/mL (<12); LOG HCV IU/mL <1.08 (<1.08)
== END | disposition home or self-care (01) ==
LOC: LABWHC1 09:06
PROVIDERS: ATTEND Surgery
DX: N17.9 Acute kidney failure, unspecified (principal)
CPT/HCPCS: 36415; 80053; 82248; 82465; 82728; 82977; 83036; 83540; 83550; 83615; 84100; 85025; 86480; 86644; 86665; 86704; 86705; 86706; 86780; 86803; 86900; 86901; 87340; 87390; 87522

== ENCOUNTER 2017-11-28 22:46 | Emergency (ER) | payer MEDICAID ==
[2017-11-28] MEDS ORDERED: SODIUM CHLORIDE 0.9% 1,000 ML IV STA (23:08)
[2017-11-28] MEDS ORDERED: ONDANSETRON 4 MG/2 ML VIAL IVP STA (23:08)
--- NOTE | 2017-11-28 23:18 | ED ---
General Adult HPI - General Chief complaint: Nausea/Vomiting/Diarrhea Stated complaint: Vomiting Source: patient Mode of arrival: ambulatory Limitations: no limitations - History of Present Illness Initial comments: Dictation was produced using HipChat dictation software. please excuse any grammatical, word or spelling errors. Chief Complaint: 32-year-old male past medical history type 1 diabetes, congestive heart failure, chronic kidney disease presents with abdominal pain. History of Present Illness: Patient is 32-year-old male presents with abdominal pain. Patient is well-known to emergency department for multiple visitations for myriad of reasons. Patient has extensive history of diabetes mellitus, chronic kidney disease. Since with 2 days of protracted nausea and vomiting. Patient states he is not able to keep anything down. He was told to come to the emergency department should he develop symptoms like this because there may be concerns for diabetic ketoacidosis. He checked his blood sugar at home with readings under 200. Patient has been evaluated on multiple occasions by Gen. surgery, gastroenterology, nephrology. The ROS documented in this emergency department record has been reviewed and confirmed by me. Those systems with pertinent positive or negative responses have been documented in the HPI. All other systems are other negative and/or noncontributory. - Related Data Home Medications Medication Instructions Recorded Confirmed Insulin Aspart [NovoLOG See Protocol SQ ACHS 01/28/17 11/28/17 (formulary)] Aspirin EC [Ecotrin Low Dose] 81 mg PO HS 06/17/17 11/28/17 Omeprazole 20 mg PO DAILY 08/28/17 11/28/17 Cyanocobalamin (Vitamin B-12) 1,000 mcg PO DAILY 11/28/17 11/28/17 [Vitamin B-12] Furosemide [Lasix] 40 mg PO BID@0900,1700 11/28/17 11/28/17 Insulin Glargine,Hum.rec.anlog 8 unit SQ HS 11/28/17 11/28/17 [Lantus Solostar] Multivitamin [Multivitamins Adult 1 tab PO DAILY 11/28/17 11/28/17 Gummies] Oxymetazoline 0.05% Nasl [place] 2 spray EA NOSTRIL BID PRN 11/28/17 11/28/17 [Afrin 0.05% Nasal [place]] Pedi Multivit No.25/Folic Acid 300 mcg PO DAILY 11/28/17 11/28/17 [Flintstones Multivit Chew Tab] Previous Rx's Medication Instructions Recorded Ondansetron Odt [Zofran Odt] 4 mg PO Q8HR PRN #24 tab 11/29/17 Allergies Allergy/AdvReac Type Severity Reaction Status Date / Time No Known Allergies Allergy Verified 11/28/17 23:10 Review of Systems ROS Statement: Those systems with pertinent positive or pertinent negative responses have been documented in the HPI. ROS Other: All systems not noted in ROS Statement are negative. Past Medical History Past Medical History: Diabetes Mellitus, Eye Disorder Additional Past Medical History / Comment(s): IDDM type I, DKA, CKD stage III, anemia, bilateral cataracts, bilateral eye pain since laser surgery April 2017 due to retinal bleeds and since has had increased difficulty with vision-saw Dr. Renteria (opthamologist) and states he was told it could be neurological. History of Any Multi-Drug Resistant Organisms: None Reported Past Surgical History: Hernia Repair Additional Past Surgical History / Comment(s): 04/2017 bilateral laser eye surgery for retinal bleeds unsuccessful, colonoscopy Past Anesthesia/Blood Transfusion Reactions: No Reported Reaction Past Psychological History: No Psychological Hx Reported Smoking Status: Current every day smoker - Past Family History Father Family Medical History: No Reported History Additional Family Medical History / Comment(s): Father is healthy Mother Family Medical History: No Reported History Additional Family Medical History / Comment(s): Mother is healthy. General Exam - General Exam Comments Initial Comments: PHYSICAL EXAM: General Impression: Alert and oriented x3, not in acute distress, pale HEENT: Normocephalic atraumatic, extra-ocular movements intact, pupils equal and reactive to light bilaterally, mucous membranes moist. Cardiovascular: Heart regular rate and rhythm, S1&S2 audible, no murmurs, rubs or gallops Chest: Lungs clear to auscultation bilaterally, no rhonchi, no wheeze, no rales Abdomen: Bowel sounds present, abdomen soft, non-tender, non-distended, no organomegaly Musculoskeletal: Pulses present and equal in all extremities, no peripheral edema Motor: Power 5/5 bilaterally, no focal deficits noted Neurological: CN II-XII grossly intact, no focal motor or sensory deficits noted Skin: Intact with no visualized rashes Psych: Normal affect and mood Limitations: no limitations Course Vital Signs 11/28/17 22:54 Temperature 98.0 F Pulse Rate 122 H Respiratory 18 Rate Blood Pressure 157/107 O2 Sat by Pulse 98 Oximetry Medical Decision Making - Medical Decision Making ED course: 32-year-old male with multiple comorbidities presents with abdominal pain. Vital signs upon arrival shows heart rate of 122, rest vital signs within acceptable limits.Laboratory evaluation obtained. CBC unremarkable. Patient mildly hypokalemic with a potassium 3.0. Patient has known history of low potassium. Patient showing signs of alkalosis with a carbon dioxide of 32 patient has mildly elevated renal markers from baseline. Patient is awaiting renal transplant. Patient mildly hyperglycemic 180. Rest of labs unremarkable. No clinical suspicion of diabetic ketoacidosis at this time. Patient given intravenous fluids and antiemetics. Patient looks improved. He states he ran out of his antinausea medication. Patient prescription for antinausea. Patient sent out to oncoming physician for follow- up of by mouth trial. She is revealed to tolerate by mouth trial patient clear for discharge with outpatient follow-up with nephrology. - Lab Data Result diagrams: 11/28/17 23:32 11/28/17 23:32 Lab Results 11/28/17 11/28/17 11/28/17 Range/Units 23:32 23:32 23:54 WBC 6.9 (3.8-10.6) k/uL RBC 3.64 L (4.30-5.90) m/uL Hgb 11.1 L (13.0-17.5) gm/dL Hct 31.7 L (39.0-53.0) % MCV 87.0 (80.0-100.0) fL MCH 30.6 (25.0-35.0) pg MCHC 35.2 (31.0-37.0) g/dL RDW 15.2 (11.5-15.5) % Plt Count 208 (150-450) k/uL Neutrophils % 74 % Lymphocytes % 17 % Monocytes % 4 % Eosinophils % 4 % Basophils % 1 % Neutrophils # 5.1 (1.3-7.7) k/uL Lymphocytes # 1.2 (1.0-4.8) k/uL Monocytes # 0.3 (0-1.0) k/uL Eosinophils # 0.3 (0-0.7) k/uL Basophils # 0.0 (0-0.2) k/uL Poikilocytosis Slight Sodium 138 (137-145) mmol/L Potassium 3.0 L (3.5-5.1) mmol/L Chloride 103 (98-107) mmol/L Carbon Dioxide 32 H (22-30) mmol/L Anion Gap 3 mmol/L BUN 35 H (9-20) mg/dL Creatinine 5.16 H (0.66-1.25) mg/dL Est GFR (CKD-EPI)AfAm 16 (>60 ml/min/1.73 sqM) Est GFR (CKD-EPI)NonAf 14 (>60 ml/min/1.73 sqM) Glucose 180 H (74-99) mg/dL POC Glucose (mg/dL) 173 H (75-99) mg/dL POC Glu Mobility Architect Manager ID Arft, Carlos Calcium 8.1 L (8.4-10.2) mg/dL Total Bilirubin 0.5 (0.2-1.3) mg/dL AST 27 (17-59) U/L ALT 38 (21-72) U/L Alkaline Phosphatase 123 (38-126) U/L Total Protein 4.6 L (6.3-8.2) g/dL Albumin 2.2 L (3.5-5.0) g/dL Disposition Clinical Impression: Nausea & vomiting Disposition: HOME SELF-CARE Instructions: Acute Nausea and Vomiting (ED) Prescriptions: Ondansetron Odt [Zofran Odt] 4 mg PO Q8HR PRN #24 tab PRN Reason: Nausea Is patient prescribed a controlled substance at d/c from ED?: No Referrals: Sahra Hurtado MD [Primary Care Provider] - 1-2 days Time of Disposition: 01:02
[2017-11-28 23:57] LABS: Glucose,Whole Blood 173 mg/dL (75-99)
[2017-11-29 00:01] LABS: Basophils % (A) 1 %; Eosinophils # (A) 0.3 k/uL (0-0.7); Eosinophils % (A) 4 %; HCT 31.7 % (39.0-53.0); HGB 11.1 gm/dL (13.0-17.5); Lymphocytes # (A) 1.2 k/uL (1.0-4.8); Lymphocytes % (A) 17 %; MCH 30.6 pg (25.0-35.0); MCHC 35.2 g/dL (31.0-37.0); Mean Platelet Volume 6.9; Monocytes # (A) 0.3 k/uL (0-1.0); Monocytes % (A) 4 %; Neutrophils # (A) 5.1 k/uL (1.3-7.7); Neutrophils % (A) 74 %; Platelet Count 208 k/uL (150-450); Poikilocytosis Slight; RBC 3.64 m/uL (4.30-5.90); RDW 15.2 % (11.5-15.5); WBC 6.9 k/uL (3.8-10.6)
[2017-11-29 00:32] LABS: Albumin 2.2 g/dL (3.5-5.0); Calcium 8.1 mg/dL (8.4-10.2); Total Bilirubin 0.5 mg/dL (0.2-1.3); Total Protein 4.6 g/dL (6.3-8.2)
[2017-11-29] MEDS ORDERED: METOCLOPRAMIDE 5 MG/ML 2 ML VIAL IVP STA (00:59)
[2017-11-29] MEDS ORDERED: diphenhydrAMINE 50 MG/ML 1 ML VIAL IVP STA (01:37)
[2017-11-29 01:45] VITALS: RESP 20; TEMP 98.2
[2017-11-29 02:19] VITALS: BP 181/98; PULSE 82
== END 2017-11-29 02:21 | disposition home or self-care (01) ==
LOC: EC 22:46
DX: R11.2 Nausea with vomiting, unspecified (principal); R19.7 Diarrhea, unspecified; R10.9 Unspecified abdominal pain; E87.6 Hypokalemia; E10.65 Type 1 diabetes mellitus with hyperglycemia; E10.22 Type 1 diabetes mellitus with diabetic chronic kidney disease; N18.3 Chronic kidney disease, stage 3 (moderate); F17.200 Nicotine dependence, unspecified, uncomplicated; I50.9 Heart failure, unspecified; Z79.82 Long term (current) use of aspirin; Z79.4 Long term (current) use of insulin; Z79.899 Other long term (current) drug therapy
CPT/HCPCS: 36415; 80053; 85025; 99284; 96374; 96375 ×2; 96361 ×3; J1200; J2765; J2405

== ENCOUNTER 2017-12-02 13:20 | Inpatient (IN) | payer MEDICAID ==
[2017-12-02] MEDS ORDERED: SODIUM CHLORIDE 0.9% 500 ML 500 ML IV STA (14:07)
[2017-12-02] MEDS ORDERED: ONDANSETRON 4 MG/2 ML VIAL IVP STA ×2 (14:07→16:37)
[2017-12-02] MEDS ORDERED: FAMOTIDINE 20 MG/2 ML VIAL IV STA (14:07)
--- NOTE | 2017-12-02 14:13 | ED ---
General Adult HPI - General Source: patient, RN notes reviewed Mode of arrival: wheelchair Limitations: no limitations <Marcos Aj - Last Filed: 12/02/17 16:30> <Salty Fleming - Last Filed: 12/02/17 17:23> - General Chief complaint: Nausea/Vomiting/Diarrhea Stated complaint: kidney failure Time Seen by Provider: 12/02/17 14:02 - History of Present Illness Initial comments: Patient 32-year-old male significant past medical history for diabetes, kidney failure, nothing to the emergency room today with chief complaint of needing dialysis. Patient does not that he went to his press set up person and was advised come here to the emergency room to start on dialysis today. Patient does admit that his had increased nausea vomiting over the last 4-5 days. Having difficult time keeping anything down. Patient does admit that he has felt dizzy at times when he is up moving around. Patient does admit to increased acid reflux. Patient denies any other complaints or symptoms currently. Patient denies any recent fever, chills, shortness of breath, chest pain, back pain, dysuria or hematuria, constipation or diarrhea, headaches or visual changes, or any other complaints. (Marcos Aj) - Related Data Home Medications Medication Instructions Recorded Confirmed Insulin Aspart [NovoLOG See Protocol SQ ACHS 01/28/17 12/02/17 (formulary)] Aspirin EC [Ecotrin Low Dose] 81 mg PO HS 06/17/17 12/02/17 Omeprazole 20 mg PO DAILY 08/28/17 12/02/17 Cyanocobalamin (Vitamin B-12) 1,000 mcg PO DAILY 11/28/17 12/02/17 [Vitamin B-12] Furosemide [Lasix] 40 mg PO BID@0900,1700 11/28/17 12/02/17 Insulin Glargine,Hum.rec.anlog 8 unit SQ HS 11/28/17 12/02/17 [Lantus Solostar] Multivitamin [Multivitamins Adult 1 tab PO DAILY 11/28/17 12/02/17 Gummies] Oxymetazoline 0.05% Nasl [place] 2 spray EA NOSTRIL BID PRN 11/28/17 12/02/17 [Afrin 0.05% Nasal [place]] Pedi Multivit No.25/Folic Acid 300 mcg PO DAILY 11/28/17 12/02/17 [Flintstones Multivit Chew Tab] Previous Rx's Medication Instructions Recorded Ondansetron Odt [Zofran Odt] 4 mg PO Q8HR PRN #24 tab 11/29/17 Allergies Allergy/AdvReac Type Severity Reaction Status Date / Time metoclopramide [From Reglan] Allergy Unknown Verified 12/02/17 14:24 Review of Systems ROS Other: All systems not noted in ROS Statement are negative. <Marcos Aj - Last Filed: 12/02/17 16:30> ROS Other: All systems not noted in ROS Statement are negative. <Salty Fleming - Last Filed: 12/02/17 17:23> ROS Statement: Those systems with pertinent positive or pertinent negative responses have been documented in the HPI. Past Medical History Past Medical History: Diabetes Mellitus, Eye Disorder Additional Past Medical History / Comment(s): IDDM type I, DKA, CKD stage III, anemia, bilateral cataracts, bilateral eye pain since laser surgery April 2017 due to retinal bleeds and since has had increased difficulty with vision-saw Dr. Renteria (opthamologist) and states he was told it could be neurological. History of Any Multi-Drug Resistant Organisms: None Reported Past Surgical History: Hernia Repair Additional Past Surgical History / Comment(s): 04/2017 bilateral laser eye surgery for retinal bleeds unsuccessful, colonoscopy Past Anesthesia/Blood Transfusion Reactions: No Reported Reaction Past Psychological History: No Psychological Hx Reported Smoking Status: Current every day smoker Past Alcohol Use History: None Reported, Rare Past Drug Use History: None Reported - Past Family History Father Family Medical History: No Reported History Additional Family Medical History / Comment(s): Father is healthy Mother Family Medical History: No Reported History Additional Family Medical History / Comment(s): Mother is healthy. <Marcos Aj - Last Filed: 12/02/17 16:30> General Exam Limitations: no limitations <Marcos Aj - Last Filed: 12/02/17 16:30> <Salty Fleming - Last Filed: 12/02/17 17:23> - General Exam Comments Initial Comments: General: The patient is awake and alert. Eye: . No nystagmus. There is normal conjunctiva bilaterally. No signs of icterus. Ears, nose, mouth and throat: There are moist mucous membranes and no oral lesions. Neck: The neck is supple, there is no tenderness or JVD. Cardiovascular: There is a regular rate and rhythm. No murmur, rub or gallop is appreciated. Respiratory: Lungs are clear to auscultation, respirations are non-labored, breath sounds are equal. No wheezes, stridor, rales, or rhonchi. Gastrointestinal: Abdomen soft on palpation. Mild tenderness in the upper quadrants. No guarding. Musculoskeletal: Normal ROM, no tenderness. Sensation intact. Strength 5/5. Pulses equal bilaterally 2+. Neurological: A&O x 3. CN II-XII intact, There are no obvious motor or sensory deficits. Coordination appears grossly intact. Speech is normal. Skin: Skin is warm and dry and no rashes or lesions are noted. Psychiatric: Cooperative, appropriate mood & affect, normal judgment. (Marcos Aj) Vital Signs 12/02/17 12/02/17 13:49 17:05 Temperature 98.2 F Pulse Rate 93 81 Respiratory 18 18 Rate Blood Pressure 142/98 159/102 O2 Sat by Pulse 99 92 L Oximetry Medical Decision Making - Lab Data Result diagrams: 12/02/17 14:10 12/02/17 14:10 <Marcos Aj - Last Filed: 12/02/17 16:30> - Lab Data Result diagrams: 12/02/17 14:10 12/02/17 14:10 <Salty Fleming - Last Filed: 12/02/17 17:23> - Medical Decision Making Patient reexamined at this time is still experiencing some nausea. Patient kidney functions elevated here in the emergency room was sent in by his press set up person for dialysis. Patient does have elevated blood glucose greater than 500 but acetone is negative. Patient blood pressure mildly elevated was given 10 mg hydralazine here in emergency room. Case discussed and seen by tender physician Dr. Fleming who did discuss with family physician Dr. Vázquez over the patient with consult to Dr. Peck (Marcos Aj) The patient was seen and examined. All diagnostics are reviewed. The case is discussed with the PA and I agree with the findings as documented. Case is discussed with internal medicine and they are agreeable to admission. (Salty Fleming) - Lab Data Lab Results 12/02/17 12/02/17 12/02/17 Range/Units 14:10 14:10 14:10 WBC 8.8 (3.8-10.6) k/uL RBC 4.16 L (4.30-5.90) m/uL Hgb 12.6 L (13.0-17.5) gm/dL Hct 36.6 L (39.0-53.0) % MCV 88.0 (80.0-100.0) fL MCH 30.3 (25.0-35.0) pg MCHC 34.5 (31.0-37.0) g/dL RDW 14.9 (11.5-15.5) % Plt Count 202 (150-450) k/uL Neutrophils % 77 % Lymphocytes % 14 % Monocytes % 4 % Eosinophils % 4 % Basophils % 1 % Neutrophils # 6.7 (1.3-7.7) k/uL Lymphocytes # 1.2 (1.0-4.8) k/uL Monocytes # 0.3 (0-1.0) k/uL Eosinophils # 0.3 (0-0.7) k/uL Basophils # 0.1 (0-0.2) k/uL Poikilocytosis Slight PT 9.5 (9.0-12.0) sec INR 1.0 (<1.2) APTT 21.3 L (22.0-30.0) sec Sodium 131 L (137-145) mmol/L Potassium 3.6 (3.5-5.1) mmol/L Chloride 99 (98-107) mmol/L Carbon Dioxide 21 L (22-30) mmol/L Anion Gap 11 mmol/L BUN 44 H (9-20) mg/dL Creatinine 5.53 H (0.66-1.25) mg/dL Est GFR (CKD-EPI)AfAm 15 (>60 ml/min/1.73 sqM) Est GFR (CKD-EPI)NonAf 13 (>60 ml/min/1.73 sqM) Glucose 522 H* (74-99) mg/dL Calcium 8.2 L (8.4-10.2) mg/dL Total Bilirubin 0.6 (0.2-1.3) mg/dL AST 24 (17-59) U/L ALT 30 (21-72) U/L Alkaline Phosphatase 126 (38-126) U/L Total Protein 4.7 L (6.3-8.2) g/dL Albumin 2.2 L (3.5-5.0) g/dL Amylase <30 L (30-110) U/L Lipase 39 (23-300) U/L Acetone, Qual Negative (Negative) Disposition Is patient prescribed a controlled substance at d/c from ED?: No Time of Disposition: 16:36 <Marcos Aj - Last Filed: 12/02/17 16:30> <Salty Fleming - Last Filed: 12/02/17 17:23> Clinical Impression: Acute kidney injury, Nausea & vomiting, Hyperglycemia, Hypertension Disposition: ADMITTED IP TO THIS HOSP Condition: Stable Referrals: Sahra Hurtado MD [Primary Care Provider] - 1-2 days
[2017-12-02 14:43] LABS: Partial Thromboplastin Time 21.3 sec (22.0-30.0); Prothrombin Time 9.5 sec (9.0-12.0)
[2017-12-02 14:46] LABS: Basophils # (A) 0.1 k/uL (0-0.2); Basophils % (A) 1 %; Eosinophils # (A) 0.3 k/uL (0-0.7); Eosinophils % (A) 4 %; HCT 36.6 % (39.0-53.0); HGB 12.6 gm/dL (13.0-17.5); Lymphocytes # (A) 1.2 k/uL (1.0-4.8); Lymphocytes % (A) 14 %; MCH 30.3 pg (25.0-35.0); MCHC 34.5 g/dL (31.0-37.0); Mean Platelet Volume 7.5; Monocytes # (A) 0.3 k/uL (0-1.0); Monocytes % (A) 4 %; Neutrophils # (A) 6.7 k/uL (1.3-7.7); Neutrophils % (A) 77 %; Platelet Count 202 k/uL (150-450); Poikilocytosis Slight; RBC 4.16 m/uL (4.30-5.90); RDW 14.9 % (11.5-15.5); WBC 8.8 k/uL (3.8-10.6)
[2017-12-02 15:02] LABS: ALT 30 U/L (21-72); AST 24 U/L (17-59); Albumin 2.2 g/dL (3.5-5.0); Alkaline Phosphatase 126 U/L (38-126); Amylase <30 U/L (30-110); Anion Gap 11 mmol/L; Blood Urea Nitrogen 44 mg/dL (9-20); Calcium 8.2 mg/dL (8.4-10.2); Carbon Dioxide 21 mmol/L (22-30); Chloride 99 mmol/L (98-107); Lipase 39 U/L (23-300); Potassium 3.6 mmol/L (3.5-5.1); Sodium 131 mmol/L (137-145); Total Bilirubin 0.6 mg/dL (0.2-1.3); Total Protein 4.7 g/dL (6.3-8.2)
[2017-12-02 15:12] LABS: Glucose 522 mg/dL (74-99)
[2017-12-02] MEDS ORDERED: INSULIN ASPART 100 UNIT/ML 1 ML 10 ML VIAL SQ ONE (16:15)
[2017-12-02] MEDS ORDERED: hydrALAZINE HCL 20 MG/ML 1 ML VIAL IVP STA (16:29)
[2017-12-02] MEDS ORDERED: SODIUM CHLORIDE 0.9% 1,000 ML IV ONE (16:37)
[2017-12-02] MEDS ORDERED: NALOXONE 0.4 MG/ML 1 ML VIAL IV PRN (16:37)
[2017-12-02] MEDS ORDERED: MORPHINE SULFATE 4 MG/ML SYRINGE IV PRN (16:37)
[2017-12-02 18:55] LABS: Glucose,Whole Blood 456 mg/dL (75-99)
[2017-12-02 19:34] VITALS: BMI 21.9
[2017-12-02 20:00] LABS: Glucose,Whole Blood 517 mg/dL (75-99)
[2017-12-02] MEDS ORDERED: TEMAZEPAM 15 MG CAP PO PRN (20:20)
[2017-12-02] MEDS ORDERED: INSULIN ASPART 100 UNIT/ML 1 ML 10 ML VIAL SQ SCH (21:00)
[2017-12-02] MEDS ORDERED: INSULIN REGULAR 100 UNIT in SODIUM CHLORIDE 0.9% 100 ML IV SCH (21:00)
[2017-12-02] MEDS: FUROSEMIDE 40 MG TAB PO SCH (21:59)
[2017-12-02] MEDS: ASPIRIN 81 MG PO SCH (21:59)
[2017-12-02 22:26] LABS: Glucose,Whole Blood 434 mg/dL (75-99)
[2017-12-02 22:42] LABS: Glucose,Whole Blood 373 mg/dL (75-99)
[2017-12-02 23:20] LABS: Glucose,Whole Blood 358 mg/dL (75-99)
[2017-12-02 23:57] LABS: Glucose,Whole Blood 363 mg/dL (75-99)
[2017-12-03 00:25] LABS: Glucose,Whole Blood 335 mg/dL (75-99)
[2017-12-03 00:33] LABS: Glucose,Whole Blood 316 mg/dL (75-99)
[2017-12-03 01:24] LABS: Glucose,Whole Blood 288 mg/dL (75-99)
[2017-12-03 01:52] LABS: Glucose,Whole Blood 264 mg/dL (75-99)
[2017-12-03 02:11] LABS: Glucose,Whole Blood 240 mg/dL (75-99)
[2017-12-03] MEDS: ACETAMINOPHEN TAB 325 MG TAB PO PRN ×2 (04:02→19:27)
[2017-12-03 04:19] LABS: Glucose,Whole Blood 147 mg/dL (75-99)
[2017-12-03 04:59] LABS: Glucose,Whole Blood 104 mg/dL (75-99)
--- NOTE | 2017-12-03 05:54 | CT ---
EXAMINATION TYPE: CT brain yue torres con DATE OF EXAM: 12/03/2017 COMPARISON: CT brain 06/10/2017 HISTORY: fall, head injury, evaluate for trauma CT DLP: 1363.59 mGycm Automated exposure control for dose reduction was used. TECHNIQUE: CT scan of the head and cervical spine are performed without contrast. FINDINGS: Ventricles of normal size. There is no mass effect nor midline shift. There is no sign of intracranial hemorrhage. The calvarium is intact. There is extensive mucosal thickening in the maxil cici ethmoid frontal sinuses. There is also some involvement sphenoid sinus. Cervical vertebra have normal spacing and alignment. Posterior elements are intact. Facet joints appe ar normal. Skull base is intact. There is no evidence of a fracture. IMPRESSION: Negative CT scan of the brain. There is pansinusitis that is worse than old CT scan. Normal CT scan of the cervical spine. No fracture.
[2017-12-03 07:06] LABS: Glucose,Whole Blood 75 mg/dL (75-99)
[2017-12-03] MEDS ORDERED: INSULIN ASPART 100 UNIT/ML 1 ML 10 ML VIAL SQ SCH (07:30)
[2017-12-03 07:47] LABS: Basophils % (A) 0 %; Eosinophils # (A) 0.3 k/uL (0-0.7); Eosinophils % (A) 4 %; HCT 30.7 % (39.0-53.0); HGB 10.5 gm/dL (13.0-17.5); Lymphocytes # (A) 1.7 k/uL (1.0-4.8); Lymphocytes % (A) 22 %; MCH 29.5 pg (25.0-35.0); MCHC 34.1 g/dL (31.0-37.0); MCV 86.4 fL (80.0-100.0); Mean Platelet Volume 7.2; Monocytes # (A) 0.4 k/uL (0-1.0); Monocytes % (A) 5 %; Neutrophils # (A) 5.1 k/uL (1.3-7.7); Neutrophils % (A) 67 %; Platelet Count 178 k/uL (150-450); Poikilocytosis Slight; RBC 3.55 m/uL (4.30-5.90); WBC 7.6 k/uL (3.8-10.6)
[2017-12-03] MEDS: CYANOCOBALAMIN 500 MCG TAB PO SCH (08:20)
[2017-12-03] MEDS: FUROSEMIDE 40 MG TAB PO SCH (08:20)
[2017-12-03 08:27] LABS: Albumin 1.8 g/dL (3.5-5.0); Calcium 7.6 mg/dL (8.4-10.2); Total Bilirubin 0.4 mg/dL (0.2-1.3); Total Protein 3.9 g/dL (6.3-8.2)
[2017-12-03] MEDS: INSULIN ASPART 100 UNIT/ML 1 ML 10 ML VIAL SQ SCH ×4 (09:09→21:44)
[2017-12-03] MEDS ORDERED: POTASSIUM CHLORIDE ER 20 MEQ TAB.ER PO STA (10:38)
[2017-12-03] MEDS ORDERED: DESMOPRESSIN ACETATE 4 MCG/ML VIAL (MDV) IVPB ONE (10:39)
--- NOTE | 2017-12-03 10:41 | P.NPCON ---
History of Present Illness - Reason for Consult chronic renal failure - History of Present Illness Reason for consultation: Chronic kidney disease History of present illness: Patient is a 32-year-old male seen in renal consultation for chronic kidney disease. Patient has chronic kidney disease stage 4 and now seems to have progressed to stage V. Patient has long-standing history of insulin-dependent diabetes mellitus. Serologic workup as an outpatient has been negative. He was scheduled to have a kidney biopsy in December 10. Patient was seen in the office yesterday and was having nausea and vomiting. He was not able to keep any food down. He's also hypervolemic. Currently resting in bed. Nausea and vomiting have improved. Still admits to swelling in his lower extremities. Denies chest pain or shortness of breath. Denies use of NSAIDs. Potassium level is 3.0 today. Patient did receive fluids overnight. Creatinine this morning is 5.57. Blood sugars are better controlled. Vital signs are stable. General: The patient appeared well nourished and normally developed. HEENT: Head exam is unremarkable. Neck is without jugular venous distension. LUNGS: Lungs are clear to auscultation and percussion. Breath sounds decreased. HEART: Rate and Rhythm are regular. First and second heart sounds normal. No murmurs, rubs or gallops. ABDOMEN: Abdominal exam reveals normal bowel sounds. Non-tender and non- distended. No evidence of peritonitis. EXTREMITITES: 2+ edema. Past Medical History Past Medical History: Diabetes Mellitus, Eye Disorder Additional Past Medical History / Comment(s): IDDM type I, DKA, CKD stage IV, anemia, bilateral cataracts, bilateral eye pain since laser surgery April 2017 due to retinal bleeds and since has had increased difficulty with vision-saw Dr. Renteria (opthamologist) and states he was told it could be neurological. History of Any Multi-Drug Resistant Organisms: None Reported Past Surgical History: Hernia Repair Additional Past Surgical History / Comment(s): 04/2017 bilateral laser eye surgery for retinal bleeds unsuccessful, colonoscopy Past Anesthesia/Blood Transfusion Reactions: No Reported Reaction Past Psychological History: No Psychological Hx Reported Additional Psychological History / Comment(s): Pt resides with his spouse. They have 3 cats. He is independent. 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 Smoking Status: Former smoker Past Alcohol Use History: None Reported, Rare Past Drug Use History: None Reported - Past Family History Father Family Medical History: No Reported History Additional Family Medical History / Comment(s): Father is healthy Mother Family Medical History: No Reported History Additional Family Medical History / Comment(s): Mother is healthy. Medications and Allergies Home Medications Medication Instructions Recorded Confirmed Type Insulin Aspart [NovoLOG See Protocol SQ ACHS 01/28/17 12/02/17 History (formulary)] Aspirin EC [Ecotrin Low Dose] 81 mg PO HS 06/17/17 12/02/17 History Omeprazole 20 mg PO DAILY 08/28/17 12/02/17 History Cyanocobalamin (Vitamin B-12) 1,000 mcg PO DAILY 11/28/17 12/02/17 History [Vitamin B-12] Furosemide [Lasix] 40 mg PO BID@0900,1700 11/28/17 12/02/17 History Insulin Glargine,Hum.rec.anlog 8 unit SQ HS 11/28/17 12/02/17 History [Lantus Solostar] Multivitamin [Multivitamins Adult 1 tab PO DAILY 11/28/17 12/02/17 History Gummies] Oxymetazoline 0.05% Nasl [place] 2 spray EA NOSTRIL BID PRN 11/28/17 12/02/17 History [Afrin 0.05% Nasal [place]] Pedi Multivit No.25/Folic Acid 300 mcg PO DAILY 11/28/17 12/02/17 History [Flintstones Multivit Chew Tab] Ondansetron Odt [Zofran Odt] 4 mg PO Q8HR PRN #24 tab 11/29/17 12/02/17 Rx Allergies Allergy/AdvReac Type Severity Reaction Status Date / Time metoclopramide [From Reglan] Allergy Unknown Verified 12/02/17 14:24 Physical Exam Vitals: Vital Signs Temp Pulse Pulse Resp BP BP BP 12/03/17 09:24 72 12/03/17 05:02 139/90 12/03/17 04:41 80 128/82 12/03/17 04:40 98.2 F 77 163/100 12/03/17 04:00 80 120/82 12/02/17 21:35 98.2 F 81 16 155/87 12/02/17 18:58 97.9 F 88 18 134/81 12/02/17 18:00 138/82 12/02/17 17:37 90 18 154/95 12/02/17 17:05 81 18 159/102 12/02/17 13:49 98.2 F 93 18 142/98 Pulse Ox 12/03/17 09:24 12/03/17 05:02 12/03/17 04:41 12/03/17 04:40 95 12/03/17 04:00 12/02/17 21:35 94 L 12/02/17 18:58 92 L 12/02/17 18:00 12/02/17 17:37 95 12/02/17 17:05 92 L 12/02/17 13:49 99 Intake and Output 12/02/17 12/03/17 12/03/17 22:59 06:59 14:59 Intake Total 360.605 75.335 480 Balance 360.605 75.335 480 Intake: Intake, IV Titration 360.605 75.335 Amount Insulin Regular 100 unit 10.605 75.335 In Sodium Chloride 0.9% 100 ml @ Titrate IV .Q0M [facility] Rx#:[id number] Sodium Chloride 0.9% 1, 350 000 ml @ 100 mls/hr IV . Q10H ONE Rx#:[id number] Oral 480 Other: Voiding Method Toilet Toilet # Voids 1 Weight 71.5 kg 71.5 kg Results - Lab Results Most recent lab results Calcium 7.6 mg/dL (8.4-10.2) L 12/03/17 07:14 12/03/17 07:14 12/03/17 07:14 Assessment and Plan Plan: Assessment: 1. Chronic kidney disease stage IV now progressed to stage V. Etiology is likely diabetic kidney disease. 2. Hypervolemic hyponatremia. 3. Hypokalemia. Oral intake along with renal losses from diuretics. 4. Insulin-dependent diabetes mellitus. 5. Edema. 6. Hypertension with chronic kidney disease. Controlled. 7. Nausea and vomiting likely secondary to diabetic gastroparesis. Can also be from worsened renal function. Plan: Hep-Lock IV fluids. Replace potassium. 60 mg once today. I will change Lasix to 80 mg IV twice daily. With worsening renal function along with hypervolemia and signs of uremia, I will start renal replacement therapy today. Vascular surgery consulted for permacath placement. First treatment of hemodialysis today. Will also try to get the kidney biopsy done this admission. I will give him DDAVP prior to the kidney biopsy. Thank you for the consultation. I will continue to follow the patient with you during his hospital stay.
[2017-12-03] MEDS ORDERED: DESMOPRESSIN ACETATE 22 MCG in SODIUM CHLORIDE 0.9% 50 ML IVPB ONE (11:00)
[2017-12-03 11:38] LABS: Glucose,Whole Blood 200 mg/dL (75-99)
[2017-12-03] MEDS ORDERED: POTASSIUM BICARBONATE/CIT AC 20 MEQ TABLET.EFF PO STA (12:28)
[2017-12-03] MEDS: FUROSEMIDE 10 MG/ML 10 ML VIAL IV SCH ×2 (12:39→23:45)
[2017-12-03] MEDS: MULTIVITAMINS, THERA 1 EACH TAB PO SCH (12:40)
--- NOTE | 2017-12-03 12:46 | P.HPIM ---
History of Present Illness H&P Date: 12/02/17 Chief Complaint: Requiring hemodialysis Patient is a 32-year-old male with a known history of IDDM1, CK D stage IV, anemia of chronic disease, bilateral cataract history and multiple other medical WAS sent to ER by his solar site assessment specialist for the initiation of hemodialysis. Patient does state that he went to his solar site assessment specialist and was advised come here to the emergency room to start on dialysis today. Patient does admit that his had increased nausea vomiting over the last 4-5 days. Having difficult time keeping anything down. Patient does admit that he has felt dizzy at times when he is up moving around. Patient does admit to increased acid reflux. Patient denies any other complaints or symptoms currently. Patient denies any recent fever, chills, shortness of breath, chest pain, back pain, dysuria or hematuria , constipation or diarrhea, headaches or visual changes, or any other complaints. Patient was found to be hyperglycemic with CBG 522, BUN 44 and creatinine 5.53, sodium 131, all given 2.1 and a stone negative Review of Systems Constitutional: Patient denies any fever or chills . Patient does have generalized weakness and malaise. No weight loss. Abdomen: Patient does have nausea vomiting and abdominal pain. No diarrhea. Cardiovascular: Patient denies any chest pain or short of breath no palpitations. Respiratory: patient denied any cough is from production. No shortness of breath Neurologic: Patient denied any numbness or tingling headache. Musculoskeletal: Patient denies any complaints of joint swelling or deformity. Skin: Negative Psychiatric: Negative Endocrine: No heat or cold intolerance. No recent weight gain. Genitourinary: No dysuria or hematuria. All other 14 point ROS negative except the above Past Medical History Past Medical History: Diabetes Mellitus, Eye Disorder Additional Past Medical History / Comment(s): IDDM type I, DKA, CKD stage IV, anemia, bilateral cataracts, bilateral eye pain since laser surgery April 2017 due to retinal bleeds and since has had increased difficulty with vision-saw Dr. Renteria (opthamologist) and states he was told it could be neurological. History of Any Multi-Drug Resistant Organisms: None Reported Past Surgical History: Hernia Repair Additional Past Surgical History / Comment(s): 04/2017 bilateral laser eye surgery for retinal bleeds unsuccessful, colonoscopy Past Anesthesia/Blood Transfusion Reactions: No Reported Reaction Past Psychological History: No Psychological Hx Reported Additional Psychological History / Comment(s): Pt resides with his spouse. They have 3 cats. He is independent. 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 Smoking Status: Former smoker Past Alcohol Use History: None Reported, Rare Past Drug Use History: None Reported - Past Family History Father Family Medical History: No Reported History Additional Family Medical History / Comment(s): Father is healthy Mother Family Medical History: No Reported History Additional Family Medical History / Comment(s): Mother is healthy. Medications and Allergies Home Medications Medication Instructions Recorded Confirmed Type Insulin Aspart [NovoLOG See Protocol SQ ACHS 01/28/17 12/02/17 History (formulary)] Aspirin EC [Ecotrin Low Dose] 81 mg PO HS 06/17/17 12/02/17 History Omeprazole 20 mg PO DAILY 08/28/17 12/02/17 History Cyanocobalamin (Vitamin B-12) 1,000 mcg PO DAILY 11/28/17 12/02/17 History [Vitamin B-12] Furosemide [Lasix] 40 mg PO BID@0900,1700 11/28/17 12/02/17 History Insulin Glargine,Hum.rec.anlog 8 unit SQ HS 11/28/17 12/02/17 History [Lantus Solostar] Multivitamin [Multivitamins Adult 1 tab PO DAILY 11/28/17 12/02/17 History Gummies] Oxymetazoline 0.05% Nasl Amigo 2 spray EA NOSTRIL BID PRN 11/28/17 12/02/17 History [Afrin 0.05% Nasal Amigo] Pedi Multivit No.25/Folic Acid 300 mcg PO DAILY 11/28/17 12/02/17 History [Flintstones Multivit Chew Tab] Ondansetron Odt [Zofran Odt] 4 mg PO Q8HR PRN #24 tab 11/29/17 12/02/17 Rx Allergies Allergy/AdvReac Type Severity Reaction Status Date / Time metoclopramide [From Reglan] Allergy Unknown Verified 12/02/17 14:24 Physical Exam Vitals: Vital Signs Temp Pulse Pulse Resp BP BP BP 12/03/17 12:20 96.6 F L 87 16 156/92 12/03/17 09:24 72 12/03/17 05:02 139/90 12/03/17 04:41 80 128/82 12/03/17 04:40 98.2 F 77 163/100 12/03/17 04:00 80 120/82 12/02/17 21:35 98.2 F 81 16 155/87 12/02/17 18:58 97.9 F 88 18 134/81 12/02/17 18:00 138/82 12/02/17 17:37 90 18 154/95 12/02/17 17:05 81 18 159/102 12/02/17 13:49 98.2 F 93 18 142/98 Pulse Ox 12/03/17 12:20 95 12/03/17 09:24 12/03/17 05:02 12/03/17 04:41 12/03/17 04:40 95 12/03/17 04:00 12/02/17 21:35 94 L 12/02/17 18:58 92 L 12/02/17 18:00 12/02/17 17:37 95 12/02/17 17:05 92 L 12/02/17 13:49 99 Intake and Output 12/02/17 12/03/17 12/03/17 22:59 06:59 14:59 Intake Total 360.605 75.335 480 Balance 360.605 75.335 480 Intake: Intake, IV Titration 360.605 75.335 Amount Insulin Regular 100 unit 10.605 75.335 In Sodium Chloride 0.9% 100 ml @ Titrate IV .Q0M [facility] Rx#:[id number] Sodium Chloride 0.9% 1, 350 000 ml @ 100 mls/hr IV . Q10H ONE Rx#:[id number] Oral 480 Other: Voiding Method Toilet Toilet # Voids 1 Weight 71.5 kg 71.5 kg PHYSICAL EXAMINATION: Patient is lying in the bed comfortably, no acute distress, awake alert and oriented.. HEENT: Normocephalic. Neck is supple. Pupils reactive. Nostrils clear. Oral cavity is moist. Ears reveal no drainage. Neck reveals no JVD, carotid bruits, or thyromegaly. CHEST EXAMINATION: Trachea is central. Symmetrical expansion. Minimal bibasilar crackles. No wheezing, otherwise Lung curran clear to auscultation and percussion. CARDIAC: Normal S1, S2 with no gallops. No murmurs ABDOMEN: Soft. Bowel sounds normal. No organomegaly. No abdominal bruits. Extremities: 2+ edema. No clubbing or cyanosis Neurologically awake, alert, oriented x3 with well-coordinated movements. No focal deficits noted Skin: No rash or skin lesions. Psychiatric: Coperative. Nonsuicidal Musculoskeletal: No joint swelling or deformity. Normal range of motion. Results CBC & Chem 7: 12/03/17 07:14 12/03/17 07:14 Labs: Abnormal Lab Results - Last 24 Hours (Table) 12/02/17 12/02/17 12/02/17 Range/Units 14:10 14:10 14:10 RBC 4.16 L (4.30-5.90) m/uL Hgb 12.6 L (13.0-17.5) gm/dL Hct 36.6 L (39.0-53.0) % APTT 21.3 L (22.0-30.0) sec Sodium 131 L (137-145) mmol/L Potassium (3.5-5.1) mmol/L Carbon Dioxide 21 L (22-30) mmol/L BUN 44 H (9-20) mg/dL Creatinine 5.53 H (0.66-1.25) mg/dL Glucose 522 H* (74-99) mg/dL POC Glucose (mg/dL) (75-99) mg/dL Calcium 8.2 L (8.4-10.2) mg/dL AST (17-59) U/L Total Protein 4.7 L (6.3-8.2) g/dL Albumin 2.2 L (3.5-5.0) g/dL Amylase <30 L (30-110) U/L 12/02/17 12/02/17 12/02/17 Range/Units 18:52 19:50 22:05 RBC (4.30-5.90) m/uL Hgb (13.0-17.5) gm/dL Hct (39.0-53.0) % APTT (22.0-30.0) sec Sodium (137-145) mmol/L Potassium (3.5-5.1) mmol/L Carbon Dioxide (22-30) mmol/L BUN (9-20) mg/dL Creatinine (0.66-1.25) mg/dL Glucose (74-99) mg/dL POC Glucose (mg/dL) 456 H 517 H 434 H (75-99) mg/dL Calcium (8.4-10.2) mg/dL AST (17-59) U/L Total Protein (6.3-8.2) g/dL Albumin (3.5-5.0) g/dL Amylase (30-110) U/L 12/02/17 12/02/17 12/02/17 Range/Units 22:30 22:59 23:37 RBC (4.30-5.90) m/uL Hgb (13.0-17.5) gm/dL Hct (39.0-53.0) % APTT (22.0-30.0) sec Sodium (137-145) mmol/L Potassium (3.5-5.1) mmol/L Carbon Dioxide (22-30) mmol/L BUN (9-20) mg/dL Creatinine (0.66-1.25) mg/dL Glucose (74-99) mg/dL POC Glucose (mg/dL) 373 H 358 H 363 H (75-99) mg/dL Calcium (8.4-10.2) mg/dL AST (17-59) U/L Total Protein (6.3-8.2) g/dL Albumin (3.5-5.0) g/dL Amylase (30-110) U/L 12/03/17 12/03/17 12/03/17 Range/Units 00:05 00:31 01:04 RBC (4.30-5.90) m/uL Hgb (13.0-17.5) gm/dL Hct (39.0-53.0) % APTT (22.0-30.0) sec Sodium (137-145) mmol/L Potassium (3.5-5.1) mmol/L Carbon Dioxide (22-30) mmol/L BUN (9-20) mg/dL Creatinine (0.66-1.25) mg/dL Glucose (74-99) mg/dL POC Glucose (mg/dL) 335 H 316 H 288 H (75-99) mg/dL Calcium (8.4-10.2) mg/dL AST (17-59) U/L Total Protein (6.3-8.2) g/dL Albumin (3.5-5.0) g/dL Amylase (30-110) U/L 12/03/17 12/03/17 12/03/17 Range/Units 01:32 02:07 03:59 RBC (4.30-5.90) m/uL Hgb (13.0-17.5) gm/dL Hct (39.0-53.0) % APTT (22.0-30.0) sec Sodium (137-145) mmol/L Potassium (3.5-5.1) mmol/L Carbon Dioxide (22-30) mmol/L BUN (9-20) mg/dL Creatinine (0.66-1.25) mg/dL Glucose (74-99) mg/dL POC Glucose (mg/dL) 264 H 240 H 147 H (75-99) mg/dL Calcium (8.4-10.2) mg/dL AST (17-59) U/L Total Protein (6.3-8.2) g/dL Albumin (3.5-5.0) g/dL Amylase (30-110) U/L 12/03/17 12/03/17 12/03/17 Range/Units 04:38 07:14 07:14 RBC 3.55 L (4.30-5.90) m/uL Hgb 10.5 L (13.0-17.5) gm/dL Hct 30.7 L (39.0-53.0) % APTT (22.0-30.0) sec Sodium 133 L (137-145) mmol/L Potassium 3.0 L (3.5-5.1) mmol/L Carbon Dioxide (22-30) mmol/L BUN 45 H (9-20) mg/dL Creatinine 5.57 H (0.66-1.25) mg/dL Glucose 64 L (74-99) mg/dL POC Glucose (mg/dL) 104 H (75-99) mg/dL Calcium 7.6 L (8.4-10.2) mg/dL AST 16 L (17-59) U/L Total Protein 3.9 L (6.3-8.2) g/dL Albumin 1.8 L (3.5-5.0) g/dL Amylase (30-110) U/L 12/03/17 Range/Units 11:37 RBC (4.30-5.90) m/uL Hgb (13.0-17.5) gm/dL Hct (39.0-53.0) % APTT (22.0-30.0) sec Sodium (137-145) mmol/L Potassium (3.5-5.1) mmol/L Carbon Dioxide (22-30) mmol/L BUN (9-20) mg/dL Creatinine (0.66-1.25) mg/dL Glucose (74-99) mg/dL POC Glucose (mg/dL) 200 H (75-99) mg/dL Calcium (8.4-10.2) mg/dL AST (17-59) U/L Total Protein (6.3-8.2) g/dL Albumin (3.5-5.0) g/dL Amylase (30-110) U/L Thrombosis Risk Factor Assmnt - DVT/VTE Prophylaxis DVT/VTE Prophylaxis: Pharmacologic Prophylaxis ordered - Choose All That Apply Any of the Below Risk Factors Present?: No Other Risk Factors: No Other congenital or acquired thrombophilia - If yes, enter type in comment: No Thrombosis Risk Factor Assessment Level: Very Low Risk Assessment and Plan Assessment: Acute on chronic kidney disease stage IV. With the worsening creatinine level. Was sent to ER to initiate hemodialysis Chronic kidney disease due to diabetic nephropathy Nausea vomiting and decreased oral intake due to diabetic gastroparesis and possible uremic symptoms Diabetes type 1 insulin-dependent Hyperglycemia with uncontrolled diabetes Hypertension Generalized edema due to CK D DVT prophylaxis Plan: Patient will be continued on gentle hydration and symptomatic management for nausea and vomiting. Continue the insulin dosing. Patient does take Lantus 8 units in the night along with insulin sliding scale 8-12 units 3 times a day before meals. Continue symptomatic management and nephrology was consulted. Patient does take Lasix at home. Time with Patient: Greater than 30
[2017-12-03] MEDS ORDERED: MIDAZOLAM 2 MG/2 ML VIAL ONE (14:48)
[2017-12-03] MEDS ORDERED: LIDOCAINE 1% INJ 10MG/ML (20 ML MDV) ONE (14:54)
[2017-12-03] MEDS ORDERED: SODIUM CHLORIDE 0.9% 250 ML IV ONE (14:55)
[2017-12-03] MEDS ORDERED: MIDAZOLAM 2 MG/2 ML VIAL IVP ONE (14:56)
[2017-12-03] MEDS: LIDOCAINE 1% INJ 10MG/ML (20 ML MDV) SQ ONE ×2 (14:57→15:43)
[2017-12-03] MEDS ORDERED: fentaNYL (PF) 50 MCG/ML 2 ML AMP ONE (15:09)
[2017-12-03] MEDS: fentaNYL (PF) 50 MCG/ML 2 ML AMP IV ONE ×2 (15:10→15:32)
[2017-12-03 15:18] LABS: Hemoglobin A1C 6.4 % (4.0-6.0)
[2017-12-03] MEDS ORDERED: IOPAMIDOL-370 50ML BTL INJ ONE (15:37)
[2017-12-03] MEDS ORDERED: HEPARIN SODIUM 1,000 UN/ML (10ML VL) ONE (15:38)
--- NOTE | 2017-12-03 16:25 | XR ---
EXAMINATION TYPE: XR chest [facility]V [facility] DATE OF EXAM: 12/03/2017 COMPARISON: 08/28/2017 HISTORY: Line placement. Shortness of breath. TECHNIQUE: Single frontal view of the chest is obtained. FINDINGS: There is a new moderate left pleural effusion and associated left-sided airspace disease. Right-sided hemodialysis catheter has been placed in the interim terminating in the high right atrium . There is no postprocedural pneumothorax appreciated. Cardia mediastinal silhouette is partially obs cured and suboptimally evaluated. No right-sided airspace disease. IMPRESSION: New moderate left pleural effusion and associated airspace disease, likely atelectasis. Interval insertion of an appropriately placed dual lumen right-sided hemodialysis catheter.
[2017-12-03 16:38] LABS: Glucose,Whole Blood 187 mg/dL (75-99)
--- NOTE | 2017-12-03 16:56 | PCN ---
PROCEDURE NOTE PREOP: Acute on chronic renal failure. PROCEDURE PERFORMED: 1. Superior vena cavogram. 2. Ultrasound-guided 23 cm dialysis catheter right jugular approach. SEDATION: Time is 53 minutes. DESCRIPTION OF THE PROCEDURE: This patient brought to the slab stripper. Right side of the neck and chest were prepped and draped in a sterile manner. 1% lidocaine infiltrated into the neck area with IV sedation. Ultrasound-guided micropuncture into the right jugular vein micropuncture guidewire was passed and 4-Korean dilator advanced on top of the guidewire. Then we passed a guidewire which was passed in the inferior vena cava. After that, a tunnel was created. Through the tunnel, we brought 23 cm dialysis catheter, dialysis catheter advanced on the top of the guidewire. We could not advance the dilator. At this time, we decided to do the superior vena cavogram with hand injection. Superior vena cavogram was performed. Vena cava was patent. After that, we passed the sheath on the top of the guidewire. Through the sheath we introduced the dialysis catheter. Tip of the catheter in superior vena cava atrium, flushed with heparin saline and hep-locked. Incision was closed with Vicryl and nylon. Dressing applied. Patient tolerated the procedure well. MMODL / IJN: [id number] /
[2017-12-03 20:43] LABS: Hepatitis A Antibody IgM Non-Reactive (Non-Reactive); Hepatitis B Core IgM Non-Reactive (Non-Reactive)
[2017-12-03 20:56] LABS: Glucose,Whole Blood 267 mg/dL (75-99)
[2017-12-03] MEDS: INSULIN DETEMIR 100 UNIT/ML 10 ML VIAL SQ SCH (21:43)
[2017-12-03] MEDS: HEPARIN SODIUM,PORCINE 5,000 UNIT/ML 1 ML VIAL SQ SCH (21:43)
[2017-12-03] MEDS: ASPIRIN 81 MG PO SCH (21:44)
--- NOTE | 2017-12-03 22:06 | P.PN ---
Subjective Progress Note Date: 12/03/17 Principal diagnosis: Acute on chronic kidney disease stage IV. Currently stage 5 New onset hemodialysis Patient is a 32-year-old male with a known history of IDDM1, CK D stage IV, anemia of chronic disease, bilateral cataract history and multiple other medical WAS sent to ER by his bench manager for the initiation of hemodialysis. Patient does state that he went to his bench manager and was advised come here to the emergency room to start on dialysis today. Patient does admit that his had increased nausea vomiting over the last 4-5 days. Having difficult time keeping anything down. Patient does admit that he has felt dizzy at times when he is up moving around. Patient does admit to increased acid reflux. Patient denies any other complaints or symptoms currently. Patient denies any recent fever, chills, shortness of breath, chest pain, back pain, dysuria or hematuria , constipation or diarrhea, headaches or visual changes, or any other complaints. Patient was found to be hyperglycemic with CBG 522, BUN 44 and creatinine 5.53, sodium 131, all given 2.1 and a stone negative 12/03/2017 Patient denied any complaints of chest pain or worsening shortness of breath. Creatinine level V.57 and potassium level is 3.0 today. Patient had permacath placement was done this afternoon and hemodialysis is being started now. Patient still overloaded. Nephrology is following. No fever no chills. No headache or dizziness or lightheadedness. Otherwise blood sugar is fairly controlled today. Start back on home insulin regimen and insulin sliding scale. Discussed with the family at bedside in detail. Current medications reviewed Objective - Vital Signs Vital signs: Vital Signs Temp 96.6 F L 12/03/17 12:20 Pulse 87 12/03/17 12:20 Resp 16 12/03/17 12:20 BP 156/92 12/03/17 12:20 Pulse Ox 95 12/03/17 12:20 Intake & Output 12/02/17 12/03/17 12/03/17 18:59 06:59 18:59 Intake Total 435.940 480 Balance 435.940 480 Weight 71.5 kg 71.5 kg Intake: Intake, IV Titration 435.940 Amount Insulin Regular 100 unit 85.940 In Sodium Chloride 0.9% 100 ml @ Titrate IV .Q0M [facility] Rx#:[id number] Sodium Chloride 0.9% 1, 350 000 ml @ 100 mls/hr IV . Q10H ONE Rx#:[id number] Oral 480 Other: Voiding Method Toilet Toilet # Voids 1 - Exam PHYSICAL EXAMINATION: Patient is lying in the bed comfortably, no acute distress, awake alert and oriented.. HEENT: Normocephalic. Neck is supple. Pupils reactive. Nostrils clear. Oral cavity is moist. Ears reveal no drainage. Facial puffiness. Neck reveals no JVD, carotid bruits, or thyromegaly. CHEST EXAMINATION: Trachea is central. Symmetrical expansion. Minimal bibasilar crackles. No wheezing, otherwise Lung curran clear to auscultation and percussion. CARDIAC: Normal S1, S2 with no gallops. No murmurs ABDOMEN: Soft. Bowel sounds normal. No organomegaly. No abdominal bruits. Extremities:3+ edema. No clubbing or cyanosis Neurologically awake, alert, oriented x3 with well-coordinated movements. No focal deficits noted Skin: No rash or skin lesions. Psychiatric: Coperative. Nonsuicidal Musculoskeletal: No joint swelling or deformity. Normal range of motion. - Labs CBC & Chem 7: 12/03/17 07:14 12/03/17 07:14 Labs: Abnormal Lab Results - Last 24 Hours (Table) 12/02/17 12/02/17 12/02/17 Range/Units 14:10 14:10 14:10 RBC 4.16 L (4.30-5.90) m/uL Hgb 12.6 L (13.0-17.5) gm/dL Hct 36.6 L (39.0-53.0) % APTT 21.3 L (22.0-30.0) sec Sodium 131 L (137-145) mmol/L Potassium (3.5-5.1) mmol/L Carbon Dioxide 21 L (22-30) mmol/L BUN 44 H (9-20) mg/dL Creatinine 5.53 H (0.66-1.25) mg/dL Glucose 522 H* (74-99) mg/dL POC Glucose (mg/dL) (75-99) mg/dL Calcium 8.2 L (8.4-10.2) mg/dL AST (17-59) U/L Total Protein 4.7 L (6.3-8.2) g/dL Albumin 2.2 L (3.5-5.0) g/dL Amylase <30 L (30-110) U/L 12/02/17 12/02/17 12/02/17 Range/Units 18:52 19:50 22:05 RBC (4.30-5.90) m/uL Hgb (13.0-17.5) gm/dL Hct (39.0-53.0) % APTT (22.0-30.0) sec Sodium (137-145) mmol/L Potassium (3.5-5.1) mmol/L Carbon Dioxide (22-30) mmol/L BUN (9-20) mg/dL Creatinine (0.66-1.25) mg/dL Glucose (74-99) mg/dL POC Glucose (mg/dL) 456 H 517 H 434 H (75-99) mg/dL Calcium (8.4-10.2) mg/dL AST (17-59) U/L Total Protein (6.3-8.2) g/dL Albumin (3.5-5.0) g/dL Amylase (30-110) U/L 12/02/17 12/02/17 12/02/17 Range/Units 22:30 22:59 23:37 RBC (4.30-5.90) m/uL Hgb (13.0-17.5) gm/dL Hct (39.0-53.0) % APTT (22.0-30.0) sec Sodium (137-145) mmol/L Potassium (3.5-5.1) mmol/L Carbon Dioxide (22-30) mmol/L BUN (9-20) mg/dL Creatinine (0.66-1.25) mg/dL Glucose (74-99) mg/dL POC Glucose (mg/dL) 373 H 358 H 363 H (75-99) mg/dL Calcium (8.4-10.2) mg/dL AST (17-59) U/L Total Protein (6.3-8.2) g/dL Albumin (3.5-5.0) g/dL Amylase (30-110) U/L 12/03/17 12/03/17 12/03/17 Range/Units 00:05 00:31 01:04 RBC (4.30-5.90) m/uL Hgb (13.0-17.5) gm/dL Hct (39.0-53.0) % APTT (22.0-30.0) sec Sodium (137-145) mmol/L Potassium (3.5-5.1) mmol/L Carbon Dioxide (22-30) mmol/L BUN (9-20) mg/dL Creatinine (0.66-1.25) mg/dL Glucose (74-99) mg/dL POC Glucose (mg/dL) 335 H 316 H 288 H (75-99) mg/dL Calcium (8.4-10.2) mg/dL AST (17-59) U/L Total Protein (6.3-8.2) g/dL Albumin (3.5-5.0) g/dL Amylase (30-110) U/L 12/03/17 12/03/17 12/03/17 Range/Units 01:32 02:07 03:59 RBC (4.30-5.90) m/uL Hgb (13.0-17.5) gm/dL Hct (39.0-53.0) % APTT (22.0-30.0) sec Sodium (137-145) mmol/L Potassium (3.5-5.1) mmol/L Carbon Dioxide (22-30) mmol/L BUN (9-20) mg/dL Creatinine (0.66-1.25) mg/dL Glucose (74-99) mg/dL POC Glucose (mg/dL) 264 H 240 H 147 H (75-99) mg/dL Calcium (8.4-10.2) mg/dL AST (17-59) U/L Total Protein (6.3-8.2) g/dL Albumin (3.5-5.0) g/dL Amylase (30-110) U/L 12/03/17 12/03/17 12/03/17 Range/Units 04:38 07:14 07:14 RBC 3.55 L (4.30-5.90) m/uL Hgb 10.5 L (13.0-17.5) gm/dL Hct 30.7 L (39.0-53.0) % APTT (22.0-30.0) sec Sodium 133 L (137-145) mmol/L Potassium 3.0 L (3.5-5.1) mmol/L Carbon Dioxide (22-30) mmol/L BUN 45 H (9-20) mg/dL Creatinine 5.57 H (0.66-1.25) mg/dL Glucose 64 L (74-99) mg/dL POC Glucose (mg/dL) 104 H (75-99) mg/dL Calcium 7.6 L (8.4-10.2) mg/dL AST 16 L (17-59) U/L Total Protein 3.9 L (6.3-8.2) g/dL Albumin 1.8 L (3.5-5.0) g/dL Amylase (30-110) U/L 12/03/17 Range/Units 11:37 RBC (4.30-5.90) m/uL Hgb (13.0-17.5) gm/dL Hct (39.0-53.0) % APTT (22.0-30.0) sec Sodium (137-145) mmol/L Potassium (3.5-5.1) mmol/L Carbon Dioxide (22-30) mmol/L BUN (9-20) mg/dL Creatinine (0.66-1.25) mg/dL Glucose (74-99) mg/dL POC Glucose (mg/dL) 200 H (75-99) mg/dL Calcium (8.4-10.2) mg/dL AST (17-59) U/L Total Protein (6.3-8.2) g/dL Albumin (3.5-5.0) g/dL Amylase (30-110) U/L Assessment and Plan Assessment: Acute on chronic kidney disease stage IV. With the worsening creatinine level. Currently stage V. Started on hemodialysis on 12/03/2017. Chronic kidney disease stage V due to diabetic nephropathy Nausea vomiting and decreased oral intake due to diabetic gastroparesis and possible uremic symptoms Diabetes type 1 insulin-dependent Hyperglycemia with uncontrolled diabetes. Improved now Hypertension Generalized edema due to CK D DVT prophylaxis Plan: Patient will be continued on gentle hydration and symptomatic management for nausea and vomiting. Continue the insulin dosing. Patient does take Lantus 8 units in the night along with insulin sliding scale 8-12 units 3 times a day before meals. Continue symptomatic management and nephrology is following. Patient does take Lasix at home. Patient was started on hemodialysis today. Replace potassium. Further recommendations based on the clinical course. Time with Patient: Greater than 30
[2017-12-04 06:54] LABS: Glucose,Whole Blood 118 mg/dL (75-99)
[2017-12-04] MEDS: INSULIN ASPART 100 UNIT/ML 1 ML 10 ML VIAL SQ SCH ×4 (07:04→21:55)
[2017-12-04] MEDS: ACETAMINOPHEN TAB 325 MG TAB PO PRN (07:38)
[2017-12-04 07:49] LABS: Calcium 7.8 mg/dL (8.4-10.2); Potassium 3.3 mmol/L (3.5-5.1)
[2017-12-04] MEDS: HEPARIN SODIUM,PORCINE 5,000 UNIT/ML 1 ML VIAL SQ SCH ×3 (08:02→21:54)
[2017-12-04] MEDS: CYANOCOBALAMIN 500 MCG TAB PO SCH (08:02)
--- NOTE | 2017-12-04 08:39 | CONS ---
CONSULTATION DATE OF CONSULTATION: 12/03/2017 REASON FOR TESTING: Syncope. HISTORY OF PRESENT ILLNESS: The patient is a pleasant 32-year-old, male, who is being evaluated today on 12/03/2017 by the Neurology Service per the request of Dr. Vázquez for a syncopal episode. The patient was brought into [facility] after he was seen by his informatics physician in the outpatient clinic and transferred to the hospital to start hemodialysis. The patient has history of chronic renal failure and Dr. Peck had decided to now start hemodialysis. In the emergency room, his BUN was 44 and creatinine was 5.53. His serum glucose was 522. The patient has history of uncontrolled diabetes. The patient was admitted to the hospital and while he was walking to the restroom, he became very dizzy and passed out. He describes the dizziness as a lightheaded sensation and denies remembering any palpitations or chest pain. When he woke up, he knew he was at [facility] and did not have any drowsiness. No sphincter incontinence or tongue biting occurred. No seizure-like activity was witnessed. He denies any previous history of seizures. A CT scan of the brain was done, which was normal. A CT scan of the cervical spine was done which showed no evidence of any fractures. At the time of my evaluation, the patient is lying in his bed and appears to be in no acute distress. He is currently undergoing hemodialysis. PAST MEDICAL HISTORY: Chronic renal failure, diabetes, chronic anemia, bilateral cataracts, history of hernia repair. SOCIAL HISTORY: The patient is a former smoker. He rarely drinks alcohol. He denies any drug use. FAMILY HISTORY: Noncontributory. HOME MEDICATIONS: Reviewed in the chart. ALLERGIES: REGLAN. REVIEW OF SYSTEMS: As mentioned above and otherwise negative. PHYSICAL EXAM: Vital signs show a temperature of 96.6, pulse 87, respirations 16, blood pressure 156/92. GENERAL APPEARANCE: The patient is a well-developed male, who appears to be in no acute distress. HEENT: Normocephalic, atraumatic, no facial asymmetry is seen. NECK: Supple with no masses felt. Hemodialysis catheter is present on the right side. CARDIOVASCULAR: Regular rate and rhythm. ABDOMEN: Nontender, nondistended. EXTREMITIES: Showed no edema or clubbing. NEUROLOGICAL EXAM: The patient is awake and oriented x3. Speech and language are normal. No lateralizing weakness is seen. Sensory exam showed diminished light touch sensation in bilateral distal lower extremities. No seizure-like activity is seen. No facial asymmetry is noticed on cranial nerve testing. IMPRESSION: 1. Syncopal episode. 2. End-stage renal disease. 3. Uncontrolled diabetes. RECOMMENDATION: The patient did have a true syncopal episode with no seizure-like activity described and no postictal event concerning for any seizures. I do recommend a cardiovascular workup. An EEG has been ordered. From a neurology standpoint, no other workup is needed at this time. His CT scan of the brain showed no intracranial abnormalities. I will continue to follow with you as needed. Thank you for allowing me to participate in the care of your patient. If you have any questions, please feel free to contact me. CECIL / GELY: [id number] /
[2017-12-04 09:49] LABS: Basophils # (A) 0.1 k/uL (0-0.2); Basophils % (A) 1 %; Eosinophils # (A) 0.4 k/uL (0-0.7); Eosinophils % (A) 4 %; HCT 31.3 % (39.0-53.0); HGB 10.8 gm/dL (13.0-17.5); Lymphocytes # (A) 1.8 k/uL (1.0-4.8); Lymphocytes % (A) 21 %; MCH 30.1 pg (25.0-35.0); MCHC 34.4 g/dL (31.0-37.0); MCV 87.6 fL (80.0-100.0); Mean Platelet Volume 7.6; Monocytes # (A) 0.4 k/uL (0-1.0); Monocytes % (A) 5 %; Neutrophils # (A) 5.8 k/uL (1.3-7.7); Neutrophils % (A) 68 %; Platelet Count 158 k/uL (150-450); Poikilocytosis Slight; RBC 3.57 m/uL (4.30-5.90); RDW 15.1 % (11.5-15.5); WBC 8.5 k/uL (3.8-10.6)
[2017-12-04] MEDS: FUROSEMIDE 10 MG/ML 10 ML VIAL IV SCH ×2 (09:57→21:56)
[2017-12-04 10:00] LABS: Prothrombin Time 9.5 sec (9.0-12.0)
--- NOTE | 2017-12-04 10:34 | IR ---
Fluoroscopy HISTORY: Renal failure, dialysis catheter placement 9 minutes fluoroscopy time supplied to the referring clinician. 649 intraoperative C-arm images docu ment the procedure. See dictated report from vascular surgery.
--- NOTE | 2017-12-04 11:00 | CONS ---
DATE OF CONSULTATION: 12/04/2017 This is a 32-year-old diabetic male who came with nausea, vomiting, and high BUN and creatinine. I was consulted for placement of urgent dialysis catheter. MEDICAL HISTORY: History of diabetes, chronic renal failure. SURGICAL HISTORY: Patient had bilateral cataract surgery done. PHYSICAL EXAMINATION: NECK: Supple, trachea central. CHEST: Clear to auscultation. ABDOMEN: Soft, brachial radial femoral pulses are present. PLAN: Placement of dialysis catheter. Risks and complications of bleeding, infection, thrombosis has been discussed. MMODL / IJN: [id number] / MTDD
[2017-12-04 11:38] LABS: Glucose,Whole Blood 108 mg/dL (75-99)
[2017-12-04] MEDS ORDERED: POTASSIUM CHLORIDE ER 20 MEQ TAB.ER PO STA (12:14)
--- NOTE | 2017-12-04 12:20 | P.PN ---
Subjective Patient is seen in follow-up for chronic kidney disease stage IV now progressed to end-stage renal disease. He was started on hemodialysis yesterday and tolerated first treatment of hemodialysis well. Currently seen one undergoing second treatment of hemodialysis. Feels better. Edema improved. Oral intake is fair. Vital signs are stable. General: The patient appeared well nourished and normally developed. HEENT: Head exam is unremarkable. Neck is without jugular venous distension. LUNGS: Lungs are clear to auscultation and percussion. Breath sounds decreased. HEART: Rate and Rhythm are regular. First and second heart sounds normal. No murmurs, rubs or gallops. ABDOMEN: Abdominal exam reveals normal bowel sounds. Non-tender and non- distended. No evidence of peritonitis. EXTREMITITES: 1+ edema. Objective - Vital Signs Vital signs: Vital Signs Temp 97.5 F L 12/04/17 12:03 Pulse 82 12/04/17 12:03 Resp 16 12/04/17 12:03 BP 134/92 12/04/17 12:03 Pulse Ox 96 12/04/17 12:03 Intake & Output 12/03/17 12/04/17 12/04/17 18:59 06:59 18:59 Intake Total 1030 250 240 Output Total 900 Balance 1030 250 -660 Intake: IV 150 Intake, IV Titration 400 Amount Sodium Chloride 0.9% 1, 400 000 ml @ 100 mls/hr IV . Q10H ONE Rx#:[id number] Oral 480 250 240 Output: Urine 900 Other: Voiding Method Toilet Toilet Urinal Bedside Commode Bedside Commode Urinal Urinal # Voids 3 1 # Bowel Movements 0 - Labs CBC & Chem 7: 12/04/17 09:15 12/04/17 06:57 Labs: Abnormal Lab Results - Last 24 Hours (Table) 12/02/17 12/03/17 12/03/17 Range/Units 14:10 16:37 20:55 RBC (4.30-5.90) m/uL Hgb (13.0-17.5) gm/dL Hct (39.0-53.0) % Sodium (137-145) mmol/L Potassium (3.5-5.1) mmol/L BUN (9-20) mg/dL Creatinine (0.66-1.25) mg/dL Glucose (74-99) mg/dL POC Glucose (mg/dL) 187 H 267 H (75-99) mg/dL Hemoglobin A1c 6.4 H (4.0-6.0) % Calcium (8.4-10.2) mg/dL 12/04/17 12/04/17 12/04/17 Range/Units 06:53 06:57 09:15 RBC 3.57 L (4.30-5.90) m/uL Hgb 10.8 L (13.0-17.5) gm/dL Hct 31.3 L (39.0-53.0) % Sodium 134 L (137-145) mmol/L Potassium 3.3 L (3.5-5.1) mmol/L BUN 39 H (9-20) mg/dL Creatinine 4.91 H (0.66-1.25) mg/dL Glucose 113 H (74-99) mg/dL POC Glucose (mg/dL) 118 H (75-99) mg/dL Hemoglobin A1c (4.0-6.0) % Calcium 7.8 L (8.4-10.2) mg/dL 12/04/17 Range/Units 11:37 RBC (4.30-5.90) m/uL Hgb (13.0-17.5) gm/dL Hct (39.0-53.0) % Sodium (137-145) mmol/L Potassium (3.5-5.1) mmol/L BUN (9-20) mg/dL Creatinine (0.66-1.25) mg/dL Glucose (74-99) mg/dL POC Glucose (mg/dL) 108 H (75-99) mg/dL Hemoglobin A1c (4.0-6.0) % Calcium (8.4-10.2) mg/dL Assessment and Plan Plan: Assessment: 1. Chronic kidney disease stage IV now progressed to stage V. Etiology is likely diabetic kidney disease. 2. Hypervolemic hyponatremia. Improved. 3. Hypokalemia from poor oral intake along with renal losses from diuretics. 4. Insulin-dependent diabetes mellitus. 5. Edema. Improved with UF. 6. Hypertension with chronic kidney disease. Controlled. 7. Nausea and vomiting likely secondary to diabetic gastroparesis. Can also be from worsened renal function. Plan: Currently seen while undergoing HD. Replace potassium. 60 mg once today. Maintain lasix 80 mg IV twice daily. Kidney biopsy pending. I will give him DDAVP prior to the kidney biopsy. Third treatment of HD tomorrow. grain operations manager on board to help set up outpatient HD. Check phosphorus.
[2017-12-04] MEDS ORDERED: POTASSIUM BICARBONATE/CIT AC 20 MEQ TABLET.EFF PO STA (12:22)
[2017-12-04] MEDS: MULTIVITAMINS, THERA 1 EACH TAB PO SCH (13:01)
[2017-12-04] MEDS ORDERED: DESMOPRESSIN ACETATE 22 MCG in SODIUM CHLORIDE 0.9% 50 ML IVPB ONE (14:00)
[2017-12-04] MEDS ORDERED: HYDROmorphone 1 MG/ML 1 ML SYRINGE IVP STA (15:20)
--- NOTE | 2017-12-04 15:52 | CT ---
DATE OF EXAM: 12/04/2017 COMPARISON: NONE CT DLP: 1589 mGycm HISTORY: Renal failure PROCEDURE: Maximal barrier technique was utilized. After informed consent, the skin overlying a suit able path to the left kidney was localized using CT guidance, the skin was prepped and draped. Lidoc francisco was used for local anesthesia. A skin marii made with a scalpel. Using CT guidance, a 17-gauge needle was advanced into in position at the lateral and inferior cortex of the left kidney where coax ial placement of an 18-gauge needle was used and core biopsy obtained. Four passes made in total. H emostasis was achieved. There was no immediate complication and patient remained in stable condition . Specimen submitted to Pathology. IMPRESSION: Status post CT guided core biopsy of left renal cortex, pathology pending. This procedur e performed by the undersigned.
[2017-12-04 16:01] LABS: Hepatitis B Surface AB- Quant 48.3 mIU/mL
[2017-12-04 16:48] LABS: Glucose,Whole Blood 122 mg/dL (75-99)
[2017-12-04] MEDS: ASPIRIN 81 MG PO SCH (17:20)
[2017-12-04] MEDS: amLODIPine 5 MG TAB PO SCH (18:34)
[2017-12-04] MEDS: ONDANSETRON 4 MG/2 ML VIAL IVP PRN (18:36)
[2017-12-04 21:10] LABS: Glucose,Whole Blood 209 mg/dL (75-99)
[2017-12-04] MEDS: INSULIN DETEMIR 100 UNIT/ML 10 ML VIAL SQ SCH (21:55)
[2017-12-05 07:13] LABS: Phosphorus 4.5 mg/dL (2.5-4.5); Potassium 3.3 mmol/L (3.5-5.1)
[2017-12-05 07:13] LABS: Glucose,Whole Blood 68 mg/dL (75-99)
[2017-12-05] MEDS: INSULIN ASPART 100 UNIT/ML 1 ML 10 ML VIAL SQ SCH ×4 (07:19→21:26)
[2017-12-05 07:23] LABS: Glucose,Whole Blood 70 mg/dL (75-99)
[2017-12-05] MEDS: amLODIPine 5 MG TAB PO SCH (09:03)
[2017-12-05] MEDS: CYANOCOBALAMIN 500 MCG TAB PO SCH (09:47)
[2017-12-05] MEDS: HEPARIN SODIUM,PORCINE 5,000 UNIT/ML 1 ML VIAL SQ SCH ×2 (09:50→21:26)
[2017-12-05] MEDS: FUROSEMIDE 10 MG/ML 10 ML VIAL IV SCH (10:04)
[2017-12-05 11:15] LABS: Glucose,Whole Blood 114 mg/dL (75-99)
[2017-12-05] MEDS ORDERED: POTASSIUM CHLORIDE ER 20 MEQ TAB.ER PO STA (11:34)
--- NOTE | 2017-12-05 11:36 | P.PN ---
Subjective Patient is seen in follow-up for chronic kidney disease stage IV now progressed to end-stage renal disease. He was started on hemodialysis this admission and tolerated it well. Currently seen while undergoing third treatment of hemodialysis. Feels better. Edema improved. Oral intake is fair. Vital signs are stable. General: The patient appeared well nourished and normally developed. HEENT: Head exam is unremarkable. Neck is without jugular venous distension. LUNGS: Lungs are clear to auscultation and percussion. Breath sounds decreased. HEART: Rate and Rhythm are regular. First and second heart sounds normal. No murmurs, rubs or gallops. ABDOMEN: Abdominal exam reveals normal bowel sounds. Non-tender and non- distended. No evidence of peritonitis. EXTREMITITES: Trace edema. Objective - Vital Signs Vital signs: Vital Signs Temp 97.7 F 12/05/17 05:00 Pulse 85 12/05/17 05:00 Resp 16 12/05/17 05:00 BP 130/80 12/05/17 05:00 Pulse Ox 93 L 12/05/17 05:00 Intake & Output 12/04/17 12/05/17 12/05/17 18:59 06:59 18:59 Intake Total 890 150 Output Total 900 450 Balance -10 150 -450 Weight 71.5 kg Intake: Intake, IV Titration 50 Amount Desmopressin Acetate 22 50 mcg In Sodium Chloride 0. 9% 50 ml @ 200 mls/hr IVPB ONCE ONE Rx#: [id number] Oral 840 150 Output: Urine 900 450 Other: Voiding Method Urinal Urinal Toilet # Voids 2 1 1 # Bowel Movements 0 - Labs CBC & Chem 7: 12/04/17 09:15 12/05/17 06:30 Labs: Abnormal Lab Results - Last 24 Hours (Table) 12/03/17 12/04/17 12/04/17 Range/Units 07:14 11:37 16:47 Sodium (137-145) mmol/L Potassium (3.5-5.1) mmol/L Carbon Dioxide (22-30) mmol/L BUN (9-20) mg/dL Creatinine (0.66-1.25) mg/dL Glucose (74-99) mg/dL POC Glucose (mg/dL) 108 H 122 H (75-99) mg/dL Calcium (8.4-10.2) mg/dL Hep Bs Antibody Reactive H (Non-Reactive) 12/04/17 12/05/17 12/05/17 Range/Units 21:08 06:30 07:01 Sodium 136 L (137-145) mmol/L Potassium 3.3 L (3.5-5.1) mmol/L Carbon Dioxide 32 H (22-30) mmol/L BUN 28 H (9-20) mg/dL Creatinine 4.02 H (0.66-1.25) mg/dL Glucose 68 L (74-99) mg/dL POC Glucose (mg/dL) 209 H 68 L (75-99) mg/dL Calcium 8.0 L (8.4-10.2) mg/dL Hep Bs Antibody (Non-Reactive) 12/05/17 12/05/17 Range/Units 07:22 11:13 Sodium (137-145) mmol/L Potassium (3.5-5.1) mmol/L Carbon Dioxide (22-30) mmol/L BUN (9-20) mg/dL Creatinine (0.66-1.25) mg/dL Glucose (74-99) mg/dL POC Glucose (mg/dL) 70 L 114 H (75-99) mg/dL Calcium (8.4-10.2) mg/dL Hep Bs Antibody (Non-Reactive) Assessment and Plan Plan: Assessment: 1. Chronic kidney disease stage IV now progressed to stage V. Etiology is likely diabetic kidney disease. 2. Hypervolemic hyponatremia. Improved. 3. Hypokalemia from poor oral intake along with renal losses from diuretics. 4. Insulin-dependent diabetes mellitus. 5. Edema. Improved with UF. 6. Hypertension with chronic kidney disease. Controlled. 7. Nausea and vomiting likely secondary to diabetic gastroparesis. Can also be from worsened renal function. Better. Plan: Currently seen while undergoing HD. Next treatment on Friday. Replace potassium. 60 mg once today. Change lasix to 80 mg PO bid. Kidney biopsy done 12/04 - results pending. manager assessment on board to help set up outpatient HD - awaiting prior auth for [employer] [facility]. Phosphorus level at goal.
[2017-12-05] MEDS: ONDANSETRON 4 MG/2 ML VIAL IVP PRN ×3 (13:18→23:56)
[2017-12-05 13:30] LABS: Glucose,Whole Blood 136 mg/dL (75-99)
[2017-12-05] MEDS: MULTIVITAMINS, THERA 1 EACH TAB PO SCH (13:40)
[2017-12-05] MEDS ORDERED: POTASSIUM CHLORIDE 20 MEQ in WATER FOR INJECTION 1 100ML.BAG IVPB STA (15:22)
[2017-12-05 16:40] LABS: Glucose,Whole Blood 152 mg/dL (75-99)
[2017-12-05] MEDS: FUROSEMIDE 80 MG TAB PO SCH (16:54)
[2017-12-05 20:39] LABS: Glucose,Whole Blood 159 mg/dL (75-99)
[2017-12-05] MEDS: ASPIRIN 81 MG PO SCH (21:25)
[2017-12-05] MEDS: INSULIN DETEMIR 100 UNIT/ML 10 ML VIAL SQ SCH (21:25)
--- NOTE | 2017-12-05 22:28 | P.PN ---
Subjective Progress Note Date: 12/04/17 Principal diagnosis: Acute on chronic kidney disease stage IV. Currently stage 5 New onset hemodialysis Patient is a 32-year-old male with a known history of IDDM1, CK D stage IV, anemia of chronic disease, bilateral cataract history and multiple other medical WAS sent to ER by his surface logging systems logger for the initiation of hemodialysis. Patient does state that he went to his surface logging systems logger and was advised come here to the emergency room to start on dialysis today. Patient does admit that his had increased nausea vomiting over the last 4-5 days. Having difficult time keeping anything down. Patient does admit that he has felt dizzy at times when he is up moving around. Patient does admit to increased acid reflux. Patient denies any other complaints or symptoms currently. Patient denies any recent fever, chills, shortness of breath, chest pain, back pain, dysuria or hematuria , constipation or diarrhea, headaches or visual changes, or any other complaints. Patient was found to be hyperglycemic with CBG 522, BUN 44 and creatinine 5.53, sodium 131, all given 2.1 and a stone negative 12/03/2017 Patient denied any complaints of chest pain or worsening shortness of breath. Creatinine level V.57 and potassium level is 3.0 today. Patient had permacath placement was done this afternoon and hemodialysis is being started now. Patient still overloaded. Nephrology is following. No fever no chills. No headache or dizziness or lightheadedness. Otherwise blood sugar is fairly controlled today. Start back on home insulin regimen and insulin sliding scale. Discussed with the family at bedside in detail. 12/04/2017 Patient received hemodialysis yesterday and today. Generalized swelling is improving. Facial puffiness is improved as well. Nephrology is following. Patient says that he feels better. No fever no chills. No nausea vomiting or abdominal pain. Current medications reviewed Objective - Vital Signs Vital signs: Vital Signs Temp 97.5 F L 12/04/17 12:03 Pulse 82 12/04/17 12:03 Resp 16 12/04/17 12:03 BP 134/92 12/04/17 12:03 Pulse Ox 96 12/04/17 12:03 Intake & Output 12/03/17 12/04/17 12/04/17 18:59 06:59 18:59 Intake Total 1030 250 890 Output Total 900 Balance 1030 250 -10 Intake: IV 150 Intake, IV Titration 400 50 Amount Desmopressin Acetate 22 50 mcg In Sodium Chloride 0. 9% 50 ml @ 200 mls/hr IVPB ONCE ONE Rx#: [id number] Sodium Chloride 0.9% 1, 400 000 ml @ 100 mls/hr IV . Q10H ONE Rx#:[id number] Oral 480 250 840 Output: Urine 900 Other: Voiding Method Toilet Toilet Urinal Bedside Commode Bedside Commode Urinal Urinal # Voids 3 2 # Bowel Movements 0 - Exam PHYSICAL EXAMINATION: Patient is lying in the bed comfortably, no acute distress, awake alert and oriented.. HEENT: Normocephalic. Neck is supple. Pupils reactive. Nostrils clear. Oral cavity is moist. Ears reveal no drainage. Facial puffiness. Neck reveals no JVD, carotid bruits, or thyromegaly. CHEST EXAMINATION: Trachea is central. Symmetrical expansion. Minimal bibasilar crackles. No wheezing, otherwise Lung curran clear to auscultation and percussion. CARDIAC: Normal S1, S2 with no gallops. No murmurs ABDOMEN: Soft. Bowel sounds normal. No organomegaly. No abdominal bruits. Extremities: 2+ edema. No clubbing or cyanosis Neurologically awake, alert, oriented x3 with well-coordinated movements. No focal deficits noted Skin: No rash or skin lesions. Psychiatric: Coperative. Nonsuicidal Musculoskeletal: No joint swelling or deformity. Normal range of motion. - Labs CBC & Chem 7: 12/04/17 09:15 12/05/17 06:30 Labs: Abnormal Lab Results - Last 24 Hours (Table) 12/02/17 12/03/17 12/03/17 Range/Units 14:10 16:37 20:55 RBC (4.30-5.90) m/uL Hgb (13.0-17.5) gm/dL Hct (39.0-53.0) % Sodium (137-145) mmol/L Potassium (3.5-5.1) mmol/L BUN (9-20) mg/dL Creatinine (0.66-1.25) mg/dL Glucose (74-99) mg/dL POC Glucose (mg/dL) 187 H 267 H (75-99) mg/dL Hemoglobin A1c 6.4 H (4.0-6.0) % Calcium (8.4-10.2) mg/dL 12/04/17 12/04/17 12/04/17 Range/Units 06:53 06:57 09:15 RBC 3.57 L (4.30-5.90) m/uL Hgb 10.8 L (13.0-17.5) gm/dL Hct 31.3 L (39.0-53.0) % Sodium 134 L (137-145) mmol/L Potassium 3.3 L (3.5-5.1) mmol/L BUN 39 H (9-20) mg/dL Creatinine 4.91 H (0.66-1.25) mg/dL Glucose 113 H (74-99) mg/dL POC Glucose (mg/dL) 118 H (75-99) mg/dL Hemoglobin A1c (4.0-6.0) % Calcium 7.8 L (8.4-10.2) mg/dL 12/04/17 Range/Units 11:37 RBC (4.30-5.90) m/uL Hgb (13.0-17.5) gm/dL Hct (39.0-53.0) % Sodium (137-145) mmol/L Potassium (3.5-5.1) mmol/L BUN (9-20) mg/dL Creatinine (0.66-1.25) mg/dL Glucose (74-99) mg/dL POC Glucose (mg/dL) 108 H (75-99) mg/dL Hemoglobin A1c (4.0-6.0) % Calcium (8.4-10.2) mg/dL Assessment and Plan Assessment: Acute on chronic kidney disease stage IV. With the worsening creatinine level. Currently stage V. Started on hemodialysis on 12/03/2017. Chronic kidney disease stage V due to diabetic nephropathy Nausea vomiting and decreased oral intake due to diabetic gastroparesis and possible uremic symptoms Diabetes type 1 insulin-dependent Hyperglycemia with uncontrolled diabetes. Improved now Hypertension Generalized edema due to CK D DVT prophylaxis Plan: Patient will be continued on gentle hydration and symptomatic management for nausea and vomiting. Continue the insulin dosing. Patient does take Lantus 8 units in the night along with insulin sliding scale 8-12 units 3 times a day before meals. Continue symptomatic management and nephrology is following. Continue with Lasix. Patient does make urine.. Patient was started on hemodialysis. Replace potassium. Further recommendations based on the clinical course. Time with Patient: Greater than 30
[2017-12-06] MEDS: ONDANSETRON 4 MG/2 ML VIAL IVP PRN ×2 (06:16→17:05)
[2017-12-06 07:03] LABS: Glucose,Whole Blood 56 mg/dL (75-99)
[2017-12-06 07:25] LABS: Glucose,Whole Blood 66 mg/dL (75-99)
[2017-12-06] MEDS: INSULIN ASPART 100 UNIT/ML 1 ML 10 ML VIAL SQ SCH ×4 (07:43→21:51)
[2017-12-06 07:47] LABS: Glucose,Whole Blood 79 mg/dL (75-99)
[2017-12-06] MEDS: CYANOCOBALAMIN 500 MCG TAB PO SCH (08:18)
[2017-12-06] MEDS: HEPARIN SODIUM,PORCINE 5,000 UNIT/ML 1 ML VIAL SQ SCH ×2 (08:18→21:51)
[2017-12-06] MEDS: amLODIPine 5 MG TAB PO SCH (08:18)
[2017-12-06] MEDS: FUROSEMIDE 80 MG TAB PO SCH ×2 (08:18→15:47)
[2017-12-06 11:32] LABS: Glucose,Whole Blood 97 mg/dL (75-99)
[2017-12-06] MEDS: MULTIVITAMINS, THERA 1 EACH TAB PO SCH (12:10)
--- NOTE | 2017-12-06 14:10 | P.PN ---
Subjective Progress Note Date: 12/06/17 (Nephrology) Principal diagnosis: Worsening renal function Seen and examined for the follow-up of ESRD. Newly started on dialysis while in the hospital for progressive on a kidney disease. Since yesterday he is having nausea vomiting and unable to tolerate by mouth diet. Objective - Vital Signs Vital signs: Vital Signs Temp 98.8 F 12/06/17 04:47 Pulse 99 12/06/17 04:47 Resp 16 12/06/17 04:47 BP 144/86 12/06/17 04:47 Pulse Ox 92 L 12/06/17 04:47 Intake & Output 12/05/17 12/06/17 12/06/17 18:59 06:59 18:59 Intake Total 680 280 Output Total 2250 600 Balance -1570 -320 Weight 71.5 kg 71.5 kg Intake: Oral 680 280 Output: Urine 450 Emesis 1800 600 Other: Voiding Method Toilet Toilet Toilet Urinal Urinal Urinal # Voids 1 2 # Emeses 4 - Exam Lying in bed no acute distress Right jugular permacath S1-S2 heard Trace edema. - Labs CBC & Chem 7: 12/04/17 09:15 12/05/17 06:30 Labs: Abnormal Lab Results - Last 24 Hours (Table) 12/05/17 12/05/17 12/06/17 Range/Units 16:39 20:28 07:02 POC Glucose (mg/dL) 152 H 159 H 56 L (75-99) mg/dL 12/06/17 Range/Units 07:24 POC Glucose (mg/dL) 66 L (75-99) mg/dL Assessment and Plan Assessment: #1 CKD4 currently on hemodialysis, progressive chronic kidney disease to ESRD #2 abdominal discomfort with vomiting, suspicion for gastritis. #3 anemia with chronic kidney disease #4 hypertension with chronic kidney disease #5 metabolic bone disease #6 diabetes on insulin Plan: #1 plan hemodialysis Friday. Awaiting for placement at [place] dialysis unit #2 add Protonix for GI symptoms #3 supportive care #4 kidney biopsy done 12/04 awaiting results.
[2017-12-06 16:56] LABS: Glucose,Whole Blood 232 mg/dL (75-99)
[2017-12-06 20:09] LABS: Glucose,Whole Blood 242 mg/dL (75-99)
[2017-12-06] MEDS: ASPIRIN 81 MG PO SCH (21:50)
[2017-12-06] MEDS: PANTOPRAZOLE 40 MG/10 ML VIAL IVP SCH (21:51)
[2017-12-06] MEDS ORDERED: cloNIDine 0.1 MG/24HR PATCH TRANSDERM SCH (22:30)
[2017-12-06] MEDS: INSULIN DETEMIR 100 UNIT/ML 10 ML VIAL SQ SCH ×2 (22:42→22:51)
[2017-12-07 07:02] LABS: Glucose,Whole Blood 194 mg/dL (75-99)
[2017-12-07 07:23] LABS: Calcium 7.7 mg/dL (8.4-10.2); Potassium 3.6 mmol/L (3.5-5.1)
[2017-12-07] MEDS: FUROSEMIDE 80 MG TAB PO SCH ×2 (09:16→16:15)
[2017-12-07] MEDS: amLODIPine 5 MG TAB PO SCH (09:16)
[2017-12-07] MEDS: PANTOPRAZOLE 40 MG/10 ML VIAL IVP SCH ×2 (09:17→21:41)
[2017-12-07] MEDS: INSULIN ASPART 100 UNIT/ML 1 ML 10 ML VIAL SQ SCH ×4 (09:17→21:39)
[2017-12-07] MEDS: HEPARIN SODIUM,PORCINE 5,000 UNIT/ML 1 ML VIAL SQ SCH ×2 (09:17→21:39)
[2017-12-07] MEDS: MULTIVITAMINS, THERA 1 EACH TAB PO SCH (09:18)
[2017-12-07] MEDS: CYANOCOBALAMIN 500 MCG TAB PO SCH (10:14)
--- NOTE | 2017-12-07 11:49 | P.PN ---
Subjective Progress Note Date: 12/07/17 Principal diagnosis: Worsening renal function on hemodialysis Seen and examined for the follow-up of ESRD. Newly started on dialysis while in the hospital for progressive on a kidney disease. No further nausea vomiting abdominal pain better Objective - Vital Signs Vital signs: Vital Signs Temp 98.3 F 12/07/17 05:00 Pulse 102 H 12/07/17 05:00 Resp 17 12/07/17 05:00 BP 166/103 12/07/17 05:00 Pulse Ox 94 L 12/07/17 05:00 Intake & Output 12/06/17 12/07/17 12/07/17 18:59 06:59 18:59 Intake Total 480 Output Total 100 Balance 380 Weight 71.5 kg Intake: Oral 480 Output: Emesis 100 Other: Voiding Method Toilet Toilet Toilet Urinal Urinal Urinal # Voids 0 2 - Exam Lying in bed no acute distress Right jugular permacath S1-S2 heard Trace edema. - Labs CBC & Chem 7: 12/04/17 09:15 12/07/17 06:17 Labs: Abnormal Lab Results - Last 24 Hours (Table) 12/06/17 12/06/17 12/07/17 Range/Units 16:54 20:08 06:17 Sodium 134 L (137-145) mmol/L Carbon Dioxide 33 H (22-30) mmol/L BUN 26 H (9-20) mg/dL Creatinine 3.92 H (0.66-1.25) mg/dL Glucose 194 H (74-99) mg/dL POC Glucose (mg/dL) 232 H 242 H (75-99) mg/dL Calcium 7.7 L (8.4-10.2) mg/dL 12/07/17 Range/Units 07:01 Sodium (137-145) mmol/L Carbon Dioxide (22-30) mmol/L BUN (9-20) mg/dL Creatinine (0.66-1.25) mg/dL Glucose (74-99) mg/dL POC Glucose (mg/dL) 194 H (75-99) mg/dL Calcium (8.4-10.2) mg/dL Assessment and Plan Assessment: #1 CKD4 currently on hemodialysis, progressive chronic kidney disease to ESRD #2 abdominal discomfort with vomiting, suspicion for gastritis. Better after adding Protonix #3 anemia with chronic kidney disease #4 hypertension with chronic kidney disease #5 metabolic bone disease #6 diabetes on insulin Plan: #1 plan hemodialysis Friday. Insurance declined for placement at [facility], we'll discuss with psychiatric social worker for placement #2 continue with Protonix for GI symptoms #3 supportive care #4 kidney biopsy done 12/04 awaiting results.
[2017-12-07 12:08] LABS: Glucose,Whole Blood 131 mg/dL (75-99)
[2017-12-07 16:47] LABS: Glucose,Whole Blood 246 mg/dL (75-99)
[2017-12-07 20:02] LABS: Glucose,Whole Blood 269 mg/dL (75-99)
[2017-12-07] MEDS: ASPIRIN 81 MG PO SCH (21:38)
[2017-12-07] MEDS: INSULIN DETEMIR 100 UNIT/ML 10 ML VIAL SQ SCH (21:41)
[2017-12-07 23:07] VITALS: RESP 16
--- NOTE | 2017-12-07 23:12 | P.PN ---
Subjective Progress Note Date: 12/07/17 Principal diagnosis: Acute on chronic kidney disease stage IV. Currently stage 5 New onset hemodialysis Patient is a 32-year-old male with a known history of IDDM1, CK D stage IV, anemia of chronic disease, bilateral cataract history and multiple other medical WAS sent to ER by his senior director for the initiation of hemodialysis. Patient does state that he went to his senior director and was advised come here to the emergency room to start on dialysis today. Patient does admit that his had increased nausea vomiting over the last 4-5 days. Having difficult time keeping anything down. Patient does admit that he has felt dizzy at times when he is up moving around. Patient does admit to increased acid reflux. Patient denies any other complaints or symptoms currently. Patient denies any recent fever, chills, shortness of breath, chest pain, back pain, dysuria or hematuria , constipation or diarrhea, headaches or visual changes, or any other complaints. Patient was found to be hyperglycemic with CBG 522, BUN 44 and creatinine 5.53, sodium 131, all given 2.1 and a stone negative 12/03/2017 Patient denied any complaints of chest pain or worsening shortness of breath. Creatinine level V.57 and potassium level is 3.0 today. Patient had permacath placement was done this afternoon and hemodialysis is being started now. Patient still overloaded. Nephrology is following. No fever no chills. No headache or dizziness or lightheadedness. Otherwise blood sugar is fairly controlled today. Start back on home insulin regimen and insulin sliding scale. Discussed with the family at bedside in detail. 12/04/2017 Patient received hemodialysis yesterday and today. Generalized swelling is improving. Facial puffiness is improved as well. Nephrology is following. Patient says that he feels better. No fever no chills. No nausea vomiting or abdominal pain. 12/07/2017 Patient did improve symptomatically. No nausea or vomiting today. Able to tolerate diet. No complaints of chest pain or shortness of breath. Likely more TOMORROW and plan for discharge with outpatient hemodialysis set up. Nephrology is on board. Current medications reviewed Objective - Vital Signs Vital signs: Vital Signs Temp 98.6 F 12/07/17 12:18 Pulse 89 12/07/17 12:18 Resp 17 12/07/17 12:18 BP 165/105 12/07/17 12:18 Pulse Ox 93 L 12/07/17 12:18 Intake & Output 12/06/17 12/07/17 12/07/17 18:59 06:59 18:59 Intake Total 480 600 Output Total 100 Balance 380 600 Weight 71.5 kg Intake: Oral 480 600 Output: Emesis 100 Other: Voiding Method Toilet Toilet Toilet Urinal Urinal Urinal # Voids 0 2 1 - Exam PHYSICAL EXAMINATION: Patient is lying in the bed comfortably, no acute distress, awake alert and oriented.. HEENT: Normocephalic. Neck is supple. Pupils reactive. Nostrils clear. Oral cavity is moist. Ears reveal no drainage. Neck reveals no JVD, carotid bruits, or thyromegaly. CHEST EXAMINATION: Trachea is central. Symmetrical expansion. Minimal bibasilar crackles. No wheezing, otherwise Lung curran clear to auscultation and percussion. CARDIAC: Normal S1, S2 with no gallops. No murmurs ABDOMEN: Soft. Bowel sounds normal. No organomegaly. No abdominal bruits. Extremities: 2+ edema. No clubbing or cyanosis Neurologically awake, alert, oriented x3 with well-coordinated movements. No focal deficits noted Skin: No rash or skin lesions. Psychiatric: Coperative. Nonsuicidal Musculoskeletal: No joint swelling or deformity. Normal range of motion. - Labs CBC & Chem 7: 12/04/17 09:15 12/07/17 06:17 Labs: Abnormal Lab Results - Last 24 Hours (Table) 12/06/17 12/06/17 12/07/17 Range/Units 16:54 20:08 06:17 Sodium 134 L (137-145) mmol/L Carbon Dioxide 33 H (22-30) mmol/L BUN 26 H (9-20) mg/dL Creatinine 3.92 H (0.66-1.25) mg/dL Glucose 194 H (74-99) mg/dL POC Glucose (mg/dL) 232 H 242 H (75-99) mg/dL Calcium 7.7 L (8.4-10.2) mg/dL 12/07/17 12/07/17 Range/Units 07:01 12:07 Sodium (137-145) mmol/L Carbon Dioxide (22-30) mmol/L BUN (9-20) mg/dL Creatinine (0.66-1.25) mg/dL Glucose (74-99) mg/dL POC Glucose (mg/dL) 194 H 131 H (75-99) mg/dL Calcium (8.4-10.2) mg/dL Assessment and Plan Assessment: Acute on chronic kidney disease stage IV. With the worsening creatinine level. Currently stage V. Started on hemodialysis on 12/03/2017. Chronic kidney disease stage V due to diabetic nephropathy Nausea vomiting and decreased oral intake due to diabetic gastroparesis and possible uremic symptoms Diabetes type 1 insulin-dependent Hyperglycemia with uncontrolled diabetes. Improved now Hypertension Generalized edema due to CK D DVT prophylaxis Plan: Patient will be continued on gentle hydration and symptomatic management for nausea and vomiting. Continue the insulin dosing. Patient does take Lantus 8 units in the night along with insulin sliding scale 8-12 units 3 times a day before meals. Levemir dose reduced to 5 units HS. Continue symptomatic management and nephrology is following. Continue with Lasix. Patient does make urine.. Patient was started on hemodialysis. Replace potassium. Further recommendations based on the clinical course. Time with Patient: Greater than 30
[2017-12-08 06:58] LABS: Glucose,Whole Blood 204 mg/dL (75-99)
[2017-12-08] MEDS: HEPARIN SODIUM,PORCINE 5,000 UNIT/ML 1 ML VIAL SQ SCH (08:02)
[2017-12-08] MEDS: CYANOCOBALAMIN 500 MCG TAB PO SCH (08:02)
[2017-12-08] MEDS: INSULIN ASPART 100 UNIT/ML 1 ML 10 ML VIAL SQ SCH ×2 (08:03→12:37)
[2017-12-08] MEDS: PANTOPRAZOLE 40 MG/10 ML VIAL IVP SCH (08:09)
--- NOTE | 2017-12-08 08:58 | P.PN ---
Subjective Patient is seen in follow-up for chronic kidney disease stage IV now progressed to end-stage renal disease. He was started on hemodialysis this admission and tolerated it well. Feels better. Edema improved. Oral intake is fair. Nausea and vomiting resolved. Vital signs are stable. General: The patient appeared well nourished and normally developed. HEENT: Head exam is unremarkable. Neck is without jugular venous distension. LUNGS: Lungs are clear to auscultation and percussion. Breath sounds decreased. HEART: Rate and Rhythm are regular. First and second heart sounds normal. No murmurs, rubs or gallops. ABDOMEN: Abdominal exam reveals normal bowel sounds. Non-tender and non- distended. No evidence of peritonitis. EXTREMITITES: Trace edema. Objective - Vital Signs Vital signs: Vital Signs Temp 97.4 F L 12/08/17 05:00 Pulse 92 12/08/17 05:00 Resp 16 12/08/17 05:00 BP 156/95 12/08/17 05:00 Pulse Ox 97 12/08/17 05:00 Intake & Output 12/07/17 12/08/17 12/08/17 18:59 06:59 18:59 Intake Total 600 890 Balance 600 890 Intake: Oral 600 890 Other: Voiding Method Toilet Toilet Urinal # Voids 1 1 - Labs CBC & Chem 7: 12/04/17 09:15 12/07/17 06:17 Labs: Abnormal Lab Results - Last 24 Hours (Table) 12/07/17 12/07/17 12/07/17 Range/Units 12:07 16:45 20:01 POC Glucose (mg/dL) 131 H 246 H 269 H (75-99) mg/dL 12/08/17 Range/Units 06:53 POC Glucose (mg/dL) 204 H (75-99) mg/dL Assessment and Plan Plan: Assessment: 1. Chronic kidney disease stage IV now progressed to stage V. Etiology is likely diabetic kidney disease. 2. Hypervolemic hyponatremia. Improved. 3. Hypokalemia from poor oral intake along with renal losses from diuretics. 4. Insulin-dependent diabetes mellitus. 5. Edema. Improved with UF. 6. Hypertension with chronic kidney disease. Blood pressures high. 7. Nausea and vomiting likely secondary to diabetic gastroparesis. Can also be from worsened renal function. Better. Plan: Hemodialysis today. Continue lasix to 80 mg PO bid. Kidney biopsy done 12/04 - results pending. recreation manager on board to help set up outpatient HD. Phosphorus level at goal. Increase amlodipine to 5 mg twice daily.
[2017-12-08] MEDS ORDERED: amLODIPine 5 MG TAB PO SCH (09:00)
[2017-12-08] MEDS: FUROSEMIDE 80 MG TAB PO SCH (09:07)
[2017-12-08 11:19] LABS: Glucose,Whole Blood 194 mg/dL (75-99)
[2017-12-08] MEDS: MULTIVITAMINS, THERA 1 EACH TAB PO SCH (12:37)
[2017-12-08 14:39] VITALS: BP 141/90; PULSE 78; TEMP 97.5
[2017-12-08] MEDS ORDERED: PANTOPRAZOLE 40 MG TABLET PO SCH (17:30)
--- NOTE | 2017-12-09 00:14 | P.DS ---
Providers Date of admission: 12/02/17 16:37 Expected date of discharge: 12/08/17 Attending physician: Ian Vázquez Consults: 12/02/17 16:37 Consult Physician Stat Consulting Provider: Claire Peck Consult Reason/Comments: Kidney failure Do you want consulting provider notified?: Yes 12/03/17 05:19 Consult Physician Routine Consulting Provider: Nayana Vazquez Consult Reason/Comments: Syncope, Weakness Do you want consulting provider notified?: Already Contacted 12/03/17 09:48 Consult Physician Stat Consulting Provider: Sterling Bueno Consult Reason/Comments: Dialysis permacath insertion today. Do you want consulting provider notified?: Yes Primary care physician: Sahra Hurtado Hospital Course: Discharge diagnosis Acute on chronic kidney disease stage IV. With the worsening creatinine level. Currently stage V. Started on hemodialysis on 12/03/2017. Chronic kidney disease stage V due to diabetic nephropathy Nausea vomiting and decreased oral intake due to diabetic gastroparesis and possible uremic symptoms Diabetes type 1 insulin-dependent Hyperglycemia with uncontrolled diabetes. Improved now Hypertension Generalized edema due to CK D. Improving DVT prophylaxis Hospital course Patient is a 32-year-old male with a known history of IDDM1, CK D stage IV, anemia of chronic disease, bilateral cataract history and multiple other medical WAS sent to ER by his bed teacher for the initiation of hemodialysis. Patient does state that he went to his bed teacher and was advised come here to the emergency room to start on dialysis today. Patient does admit that his had increased nausea vomiting over the last 4-5 days. Having difficult time keeping anything down. Patient does admit that he has felt dizzy at times when he is up moving around. Patient does admit to increased acid reflux. Patient denies any other complaints or symptoms currently. Patient denies any recent fever, chills, shortness of breath, chest pain, back pain, dysuria or hematuria , constipation or diarrhea, headaches or visual changes, or any other complaints. Patient was found to be hyperglycemic with CBG 522, BUN 44 and creatinine 5.53, sodium 131, all given 2.1 and a stone negative 12/03/2017 Patient denied any complaints of chest pain or worsening shortness of breath. Creatinine level V.57 and potassium level is 3.0 today. Patient had permacath placement was done this afternoon and hemodialysis is being started now. Patient still overloaded. Nephrology is following. No fever no chills. No headache or dizziness or lightheadedness. Otherwise blood sugar is fairly controlled today. Start back on home insulin regimen and insulin sliding scale. Discussed with the family at bedside in detail. 12/04/2017 Patient received hemodialysis yesterday and today. Generalized swelling is improving. Facial puffiness is improved as well. Nephrology is following. Patient says that he feels better. No fever no chills. No nausea vomiting or abdominal pain. 12/07/2017 Patient did improve symptomatically. No nausea or vomiting today. Able to tolerate diet. No complaints of chest pain or shortness of breath. Likely more TOMORROW and plan for discharge with outpatient hemodialysis set up. Nephrology is on board. 12/08/2017 Patient had hemodialysis today. Otherwise breathing status is much improved. Edema improved as well. Patient is tolerating oral diet. Wants to be discharged home today. Discharge physical examination was done and vitals reviewed Vital Signs - 24 hr 12/08/17 12/08/17 12/08/17 05:00 08:00 12:25 Temperature 97.4 F L 97.5 F L Pulse Rate [ 92 92 78 Right] Respiratory 16 16 16 Rate Blood Pressure 156/95 141/90 [Left Arm] O2 Sat by Pulse 97 96 Oximetry Patient Condition at Discharge: Stable Plan - Discharge Summary Discharge Rx Participant: No New Discharge Prescriptions: New amLODIPine [Norvasc] 5 mg PO BID #60 tab Furosemide [Lasix] 80 mg PO BID@0900,1600 #60 tab Continue Insulin Aspart [NovoLOG (formulary)] See Protocol SQ ACHS Aspirin EC [Ecotrin Low Dose] 81 mg PO HS Omeprazole 20 mg PO DAILY Pedi Multivit No.25/Folic Acid [Flintstones Multivit Chew Tab] 300 mcg PO DAILY Oxymetazoline 0.05% Nasl [place] [Afrin 0.05% Nasal [place]] 2 spray EA NOSTRIL BID PRN PRN Reason: Allergy Symptoms Insulin Glargine,Hum.rec.anlog [Lantus Solostar] 8 unit SQ HS Multivitamin [Multivitamins Adult Gummies] 1 tab PO DAILY Cyanocobalamin (Vitamin B-12) [Vitamin B-12] 1,000 mcg PO DAILY Ondansetron Odt [Zofran ODT] 4 mg PO Q8HR PRN #24 tab PRN Reason: Nausea Discontinued Furosemide [Lasix] 40 mg PO BID@0900,1700 Discharge Medication List Insulin Aspart [NovoLOG (formulary)] See Protocol SQ ACHS 01/28/17 [History] Aspirin EC [Ecotrin Low Dose] 81 mg PO HS 06/17/17 [History] Omeprazole 20 mg PO DAILY 08/28/17 [History] Cyanocobalamin (Vitamin B-12) [Vitamin B-12] 1,000 mcg PO DAILY 11/28/17 [ History] Insulin Glargine,Hum.rec.anlog [Lantus Solostar] 8 unit SQ HS 11/28/17 [History] Multivitamin [Multivitamins Adult Gummies] 1 tab PO DAILY 11/28/17 [History] Oxymetazoline 0.05% Nasl [place] [Afrin 0.05% Nasal [place]] 2 spray EA NOSTRIL BID PRN 11/28/17 [History] Pedi Multivit No.25/Folic Acid [Flintstones Multivit Chew Tab] 300 mcg PO DAILY 11/28/17 [History] Ondansetron Odt [Zofran ODT] 4 mg PO Q8HR PRN #24 tab 11/29/17 [Rx] Furosemide [Lasix] 80 mg PO BID@0900,1600 #60 tab 12/08/17 [Rx] amLODIPine [Norvasc] 5 mg PO BID #60 tab 12/08/17 [Rx] Follow up Appointment(s)/Referral(s): Sahra Hurtado MD [Primary Care Provider] - 12/11/17 3:30 pm Activity/Diet/Wound Care/Special Instructions: Dialysis is arranged for the [facility] on Friday, Friday, Friday - third shift at 3pm Discharge Disposition: HOME SELF-CARE
--- NOTE | 2017-12-09 00:16 | P.PN ---
Subjective Progress Note Date: 12/05/17 Principal diagnosis: Acute on chronic kidney disease stage IV. Currently stage 5 New onset hemodialysis Patient is a 32-year-old male with a known history of IDDM1, CK D stage IV, anemia of chronic disease, bilateral cataract history and multiple other medical WAS sent to ER by his certified personal chef for the initiation of hemodialysis. Patient does state that he went to his certified personal chef and was advised come here to the emergency room to start on dialysis today. Patient does admit that his had increased nausea vomiting over the last 4-5 days. Having difficult time keeping anything down. Patient does admit that he has felt dizzy at times when he is up moving around. Patient does admit to increased acid reflux. Patient denies any other complaints or symptoms currently. Patient denies any recent fever, chills, shortness of breath, chest pain, back pain, dysuria or hematuria , constipation or diarrhea, headaches or visual changes, or any other complaints. Patient was found to be hyperglycemic with CBG 522, BUN 44 and creatinine 5.53, sodium 131, all given 2.1 and a stone negative 12/03/2017 Patient denied any complaints of chest pain or worsening shortness of breath. Creatinine level V.57 and potassium level is 3.0 today. Patient had permacath placement was done this afternoon and hemodialysis is being started now. Patient still overloaded. Nephrology is following. No fever no chills. No headache or dizziness or lightheadedness. Otherwise blood sugar is fairly controlled today. Start back on home insulin regimen and insulin sliding scale. Discussed with the family at bedside in detail. 12/04/2017 Patient received hemodialysis yesterday and today. Generalized swelling is improving. Facial puffiness is improved as well. Nephrology is following. Patient says that he feels better. No fever no chills. No nausea vomiting or abdominal pain. 12/05/2017 Patient is getting another session of hemodialysis. Patient is also scheduled for renal biopsy. Patient is complaining of nausea and vomiting. Otherwise leg swelling and facial puffiness much improved. No fever no chills. No chest pain or worsening shortness of breath. Current medications reviewed Objective - Vital Signs Vital signs: Vital Signs Temp 97.4 F L 12/05/17 11:56 Pulse 84 12/05/17 16:00 Resp 16 12/05/17 16:00 BP 168/99 10/26/18 11:56 Pulse Ox 95 12/05/17 11:56 Intake & Output 12/05/17 12/05/17 12/06/17 06:59 18:59 06:59 Intake Total 150 680 Output Total 2250 Balance 150 -1570 Weight 71.5 kg Intake: Oral 150 680 Output: Urine 450 Emesis 1800 Other: Voiding Method Urinal Toilet Urinal # Voids 1 1 # Emeses 4 - Exam PHYSICAL EXAMINATION: Patient is lying in the bed comfortably, no acute distress, awake alert and oriented.. HEENT: Normocephalic. Neck is supple. Pupils reactive. Nostrils clear. Oral cavity is moist. Ears reveal no drainage. Facial puffiness. Neck reveals no JVD, carotid bruits, or thyromegaly. CHEST EXAMINATION: Trachea is central. Symmetrical expansion. Minimal bibasilar crackles. No wheezing, otherwise Lung curran clear to auscultation and percussion. CARDIAC: Normal S1, S2 with no gallops. No murmurs ABDOMEN: Soft. Bowel sounds normal. No organomegaly. No abdominal bruits. Extremities:3+ edema. No clubbing or cyanosis Neurologically awake, alert, oriented x3 with well-coordinated movements. No focal deficits noted Skin: No rash or skin lesions. Psychiatric: Coperative. Nonsuicidal Musculoskeletal: No joint swelling or deformity. Normal range of motion. - Labs CBC & Chem 7: 12/04/17 09:15 12/07/17 06:17 Labs: Abnormal Lab Results - Last 24 Hours (Table) 12/04/17 12/05/17 12/05/17 Range/Units 21:08 06:30 07:01 Sodium 136 L (137-145) mmol/L Potassium 3.3 L (3.5-5.1) mmol/L Carbon Dioxide 32 H (22-30) mmol/L BUN 28 H (9-20) mg/dL Creatinine 4.02 H (0.66-1.25) mg/dL Glucose 68 L (74-99) mg/dL POC Glucose (mg/dL) 209 H 68 L (75-99) mg/dL Calcium 8.0 L (8.4-10.2) mg/dL 12/05/17 12/05/17 12/05/17 Range/Units 07:22 11:13 13:17 Sodium (137-145) mmol/L Potassium (3.5-5.1) mmol/L Carbon Dioxide (22-30) mmol/L BUN (9-20) mg/dL Creatinine (0.66-1.25) mg/dL Glucose (74-99) mg/dL POC Glucose (mg/dL) 70 L 114 H 136 H (75-99) mg/dL Calcium (8.4-10.2) mg/dL 12/05/17 Range/Units 16:39 Sodium (137-145) mmol/L Potassium (3.5-5.1) mmol/L Carbon Dioxide (22-30) mmol/L BUN (9-20) mg/dL Creatinine (0.66-1.25) mg/dL Glucose (74-99) mg/dL POC Glucose (mg/dL) 152 H (75-99) mg/dL Calcium (8.4-10.2) mg/dL Assessment and Plan Assessment: Acute on chronic kidney disease stage IV. With the worsening creatinine level. Currently stage V. Started on hemodialysis on 12/03/2017. Chronic kidney disease stage V due to diabetic nephropathy Nausea vomiting and decreased oral intake due to diabetic gastroparesis and possible uremic symptoms Diabetes type 1 insulin-dependent Hyperglycemia with uncontrolled diabetes. Improved now Hypertension Generalized edema due to CK D DVT prophylaxis Plan: Patient will be continued on gentle hydration and symptomatic management for nausea and vomiting. Continue the insulin dosing. Patient does take Lantus 8 units in the night along with insulin sliding scale 8-12 units 3 times a day before meals. Continue symptomatic management and nephrology is following. Patient does take Lasix at home. Patient was started on hemodialysis today. Replace potassium. Further recommendations based on the clinical course.
--- NOTE | 2017-12-09 00:18 | P.PN ---
Subjective Progress Note Date: 12/06/17 Principal diagnosis: Acute on chronic kidney disease stage IV. Currently stage 5 New onset hemodialysis Patient is a 32-year-old male with a known history of IDDM1, CK D stage IV, anemia of chronic disease, bilateral cataract history and multiple other medical WAS sent to ER by his sulfonator operator for the initiation of hemodialysis. Patient does state that he went to his sulfonator operator and was advised come here to the emergency room to start on dialysis today. Patient does admit that his had increased nausea vomiting over the last 4-5 days. Having difficult time keeping anything down. Patient does admit that he has felt dizzy at times when he is up moving around. Patient does admit to increased acid reflux. Patient denies any other complaints or symptoms currently. Patient denies any recent fever, chills, shortness of breath, chest pain, back pain, dysuria or hematuria , constipation or diarrhea, headaches or visual changes, or any other complaints. Patient was found to be hyperglycemic with CBG 522, BUN 44 and creatinine 5.53, sodium 131, all given 2.1 and a stone negative 12/03/2017 Patient denied any complaints of chest pain or worsening shortness of breath. Creatinine level V.57 and potassium level is 3.0 today. Patient had permacath placement was done this afternoon and hemodialysis is being started now. Patient still overloaded. Nephrology is following. No fever no chills. No headache or dizziness or lightheadedness. Otherwise blood sugar is fairly controlled today. Start back on home insulin regimen and insulin sliding scale. Discussed with the family at bedside in detail. 12/04/2017 Patient received hemodialysis yesterday and today. Generalized swelling is improving. Facial puffiness is improved as well. Nephrology is following. Patient says that he feels better. No fever no chills. No nausea vomiting or abdominal pain. 12/05/2017 Patient is getting another session of hemodialysis. Patient is also scheduled for renal biopsy. Patient is complaining of nausea and vomiting. Otherwise leg swelling and facial puffiness much improved. No fever no chills. No chest pain or worsening shortness of breath. 12/06/2017 Breathing status is much improved today. Nausea and vomiting is improved and patient is tolerating oral diet. No fever no chills. Hemodialysis will be on Friday. No other acute overnight issues. Current medications reviewed Objective - Vital Signs Vital signs: Vital Signs Temp 98.8 F 12/06/17 04:47 Pulse 99 12/06/17 04:47 Resp 16 12/06/17 04:47 BP 144/86 12/06/17 04:47 Pulse Ox 92 L 12/06/17 04:47 Intake & Output 12/06/17 12/06/17 12/07/17 06:59 18:59 06:59 Intake Total 280 Output Total 600 Balance -320 Weight 71.5 kg Intake: Oral 280 Output: Emesis 600 Other: Voiding Method Toilet Toilet Urinal Urinal # Voids 2 0 - Exam PHYSICAL EXAMINATION: Patient is lying in the bed comfortably, no acute distress, awake alert and oriented.. HEENT: Normocephalic. Neck is supple. Pupils reactive. Nostrils clear. Oral cavity is moist. Ears reveal no drainage. Neck reveals no JVD, carotid bruits, or thyromegaly. CHEST EXAMINATION: Trachea is central. Symmetrical expansion. Minimal bibasilar crackles. No wheezing, otherwise Lung curran clear to auscultation and percussion. CARDIAC: Normal S1, S2 with no gallops. No murmurs ABDOMEN: Soft. Bowel sounds normal. No organomegaly. No abdominal bruits. Extremities:3+ edema. No clubbing or cyanosis Neurologically awake, alert, oriented x3 with well-coordinated movements. No focal deficits noted Skin: No rash or skin lesions. Psychiatric: Coperative. Nonsuicidal Musculoskeletal: No joint swelling or deformity. Normal range of motion. - Labs CBC & Chem 7: 12/04/17 09:15 12/07/17 06:17 Labs: Abnormal Lab Results - Last 24 Hours (Table) 12/05/17 12/06/17 12/06/17 Range/Units 20:28 07:02 07:24 POC Glucose (mg/dL) 159 H 56 L 66 L (75-99) mg/dL 12/06/17 12/06/17 Range/Units 16:54 20:08 POC Glucose (mg/dL) 232 H 242 H (75-99) mg/dL Assessment and Plan Assessment: Acute on chronic kidney disease stage IV. With the worsening creatinine level. Currently stage V. Started on hemodialysis on 12/03/2017. Chronic kidney disease stage V due to diabetic nephropathy Nausea vomiting and decreased oral intake due to diabetic gastroparesis and possible uremic symptoms Diabetes type 1 insulin-dependent Hyperglycemia with uncontrolled diabetes. Improved now Hypertension Generalized edema due to CK D DVT prophylaxis Plan: Patient will be continued on gentle hydration and symptomatic management for nausea and vomiting. Continue the insulin dosing. Patient does take Lantus 8 units in the night along with insulin sliding scale 8-12 units 3 times a day before meals. Continue symptomatic management and nephrology is following. Patient does take Lasix at home. Patient was started on hemodialysis. Follow-up renal biopsy report.. Replace potassium. Further recommendations based on the clinical course. Time with Patient: Greater than 30
== END 2017-12-08 15:52 | disposition home or self-care (01) | DRG 683 ==
LOC: EC 13:20 → 3NMEDONC 16:37
PROVIDERS: ADMIT Internal Medicine; ATTEND Internal Medicine
PROC: 02HV33Z Insertion of Infusion Device into Superior Vena Cava, Percutaneous Approach (ICD-10-PCS; 2017-12-03 14:40)
PROC: 5A1D70Z Performance of Urinary Filtration, Intermittent, Less than 6 Hours Per Day (ICD-10-PCS; 2017-12-03 14:40)
PROC: 0TB13ZX Excision of Left Kidney, Percutaneous Approach, Diagnostic (ICD-10-PCS; principal; 2017-12-04)
DX: N17.9 Acute kidney failure, unspecified (principal); I12.0 Hypertensive chronic kidney disease with stage 5 chronic kidney disease or end stage renal disease; E87.1 Hypo-osmolality and hyponatremia; N18.6 End stage renal disease; D63.1 Anemia in chronic kidney disease; E10.21 Type 1 diabetes mellitus with diabetic nephropathy; E10.22 Type 1 diabetes mellitus with diabetic chronic kidney disease; E10.43 Type 1 diabetes mellitus with diabetic autonomic (poly)neuropathy; E10.65 Type 1 diabetes mellitus with hyperglycemia; K31.84 Gastroparesis; Z79.4 Long term (current) use of insulin; E87.6 Hypokalemia; T50.2X5A Adverse effect of carbonic-anhydrase inhibitors, benzothiadiazides and other diuretics, initial encounter; E86.1 Hypovolemia; E88.89 Other specified metabolic disorders; F17.200 Nicotine dependence, unspecified, uncomplicated; K21.9 Gastro-esophageal reflux disease without esophagitis; Z99.2 Dependence on renal dialysis; R55 Syncope and collapse; E10.319 Type 1 diabetes mellitus with unspecified diabetic retinopathy without macular edema; H35.60 Retinal hemorrhage, unspecified eye; Z98.42 Cataract extraction status, left eye; Z98.41 Cataract extraction status, right eye
CPT/HCPCS: 36415; 36558; 70450; 72125; 76937; 77001; 77012; 80048; 80053; 80074; 82009; 82150; 83036; 83690; 84100; 85025; 85610; 85730; 86706; 86850; 86900; 86901; 90935; 96361; 96374; 96375; 96376; 99284

== ENCOUNTER → 2017-12-19 | Outpatient (CLI) | payer MEDICAID ==
--- NOTE | 2017-12-19 09:45 | US ---
EXAMINATION TYPE: US abdomen complete DATE OF EXAM: 12/19/2017 COMPARISON: NONE CLINICAL HISTORY: K80.20 Calculus of gallbladder without cholecystitis. Renal failure EXAM MEASUREMENTS: Liver Length: 17.4 cm Gallbladder Wall: 0.2 cm CBD: 0.3 cm Spleen: 13.5 cm Right Kidney: 10.2 x 5.1 x 5.3 cm Left Kidney: 11.0 x 5.4 x 4.6 cm Pancreas: limited evaluation due to overlying bowel content Liver: enlarged Gallbladder: no evidence of stones Evidence for sonographic Stahl's sign: no CBD: wnl Spleen: enlarged Right Kidney: no evidence of hydronephrosis Left Kidney: no evidence of hydronephrosis Upper IVC: wnl Abd Aorta: wnl Mild amount of ascites noted IMPRESSION: 1. No suspicious acute ultrasound abnormality
== END | disposition home or self-care (01) ==
LOC: RADUSWWP 07:45
PROVIDERS: ATTEND Surgery
DX: N28.1 Cyst of kidney, acquired (principal); K80.20 Calculus of gallbladder without cholecystitis without obstruction
CPT/HCPCS: 76700

== ENCOUNTER 2018-03-18 14:22 | Emergency (ER) | payer MEDICARE, OTHER ==
[2018-03-18] MEDS: SODIUM CHLORIDE 0.9% 1,000 ML IV STA (15:36)
[2018-03-18] MEDS: ONDANSETRON 4 MG/2 ML VIAL IVP STA (15:57)
[2018-03-18] MEDS: MAG HYDROX/AL HYDROX/SIMETH 30 ML, HYOSCYAMINE ELIXIR 10 ML, CIMETIDINE HCL 300 MG, LID... PO STA ×4 (15:58)
--- NOTE | 2018-03-18 16:15 | XR ---
Abdomen HISTORY: Nausea vomiting Frontal view of the abdomen on 2 images, comparison prior exam 07/15/2016 Analysis catheter tip is overlying the right atrium. Question some minimal patchy density at the left lung base. There is eventration of right hemidiaphragm. No pneumoperitoneum or bowel obstruction. No evident pathologic calcification. There are air-fluid levels without bowel distention. IMPRESSION: Correlate for enteritis, ileus, follow-up as indicated. Possible left lower lobe atelecta sis versus small effusion. Follow-up suggested.
--- NOTE | 2018-03-18 16:30 | ED ---
Nausea/Vomiting/Diarrhea HPI - General Chief complaint: Nausea/Vomiting/Diarrhea Stated complaint: Abd pain Time Seen by Provider: 03/18/18 15:02 Source: patient, RN notes reviewed, old records reviewed Mode of arrival: wheelchair Limitations: no limitations - History of Present Illness Initial comments: Patient is a 32-year-old male who presents the emergency department today with complaints of abdominal pain, nausea vomiting. Patient has a history of diabetes, initial concern for DKA. They are evaluating the Patient for gastroparesis. He is scheduled to have this completed earlier next week. Patient complains today of dehydration. Patient states that he when he was at his last dialysis appointment on Friday he started having episodes of vomiting. He's had persistent vomiting since that time. Patient states that he sees Dr. Campa for his stage V daily disease. Ports he goes to dialysis on Wednesdays and Fridays. - Related Data Home Medications Medication Instructions Recorded Confirmed Insulin Aspart [NovoLOG See Protocol SQ ACHS 01/28/17 03/18/18 (formulary)] Aspirin EC [Ecotrin Low Dose] 81 mg PO HS 06/17/17 03/18/18 Omeprazole 20 mg PO DAILY 08/28/17 03/18/18 Cyanocobalamin (Vitamin B-12) 1,000 mcg PO DAILY 11/28/17 03/18/18 [Vitamin B-12] Multivitamin [Multivitamins Adult 1 tab PO DAILY 11/28/17 03/18/18 Gummies] Potassium 99 mg PO HS 03/18/18 03/18/18 Previous Rx's Medication Instructions Recorded Furosemide [Lasix] 80 mg PO BID@0900,1600 #60 tab 12/08/17 amLODIPine [Norvasc] 5 mg PO BID #60 tab 12/08/17 Ondansetron Odt [Zofran Odt] 4 mg PO Q8HR PRN #20 tab 03/18/18 Sucralfate [Carafate] 1 gm PO ACHS #20 tablet 03/18/18 Sucralfate [Carafate] 1 gm PO BID #20 ml 03/18/18 Allergies Allergy/AdvReac Type Severity Reaction Status Date / Time metoclopramide [From Reglan] Allergy Unknown Verified 03/18/18 15:09 Review of Systems ROS Statement: Those systems with pertinent positive or pertinent negative responses have been documented in the HPI. ROS Other: All systems not noted in ROS Statement are negative. Past Medical History Past Medical History: Diabetes Mellitus, Eye Disorder Additional Past Medical History / Comment(s): IDDM type I, DKA, CKD stage IV, anemia, bilateral cataracts, bilateral eye pain since laser surgery April 2017 due to retinal bleeds and since has had increased difficulty with vision-saw Dr. Renteria (opthamologist) and states he was told it could be neurological. History of Any Multi-Drug Resistant Organisms: None Reported Past Surgical History: Hernia Repair Additional Past Surgical History / Comment(s): 04/2017 bilateral laser eye surgery for retinal bleeds unsuccessful, colonoscopy Past Anesthesia/Blood Transfusion Reactions: No Reported Reaction Past Psychological History: No Psychological Hx Reported Smoking Status: Former smoker Past Alcohol Use History: None Reported Past Drug Use History: None Reported - Past Family History Father Family Medical History: No Reported History Additional Family Medical History / Comment(s): Father is healthy Mother Family Medical History: No Reported History Additional Family Medical History / Comment(s): Mother is healthy. General Exam - General Exam Comments Initial Comments: 32-year-old male. Alert and oriented. No significant distress. Limitations: no limitations General appearance: alert, in no apparent distress Head exam: Present: atraumatic, normocephalic, normal inspection Eye exam: Present: normal appearance, PERRL, EOMI. Absent: scleral icterus, conjunctival injection, periorbital swelling ENT exam: Present: normal exam, mucous membranes moist Neck exam: Present: normal inspection. Absent: tenderness, meningismus, lymphadenopathy Respiratory exam: Present: normal lung sounds bilaterally. Absent: respiratory distress, wheezes, rales, rhonchi, stridor Cardiovascular Exam: Present: regular rate, normal rhythm, normal heart sounds. Absent: systolic murmur, diastolic murmur, rubs, gallop, clicks GI/Abdominal exam: Present: soft, normal bowel sounds. Absent: distended, tenderness, guarding, rebound, rigid Extremities exam: Present: normal inspection, full ROM, normal capillary refill. Absent: tenderness, pedal edema, joint swelling, calf tenderness Back exam: Present: normal inspection Neurological exam: Present: alert, oriented X3, CN II-XII intact Psychiatric exam: Present: normal affect, normal mood Course Vital Signs 03/18/18 14:24 Temperature 98.6 F Pulse Rate 98 Respiratory 18 Rate Blood Pressure 140/101 O2 Sat by Pulse 97 Oximetry Medical Decision Making - Medical Decision Making 32-year-old male history of diabetes and end-stage kidney disease presents today with complaints of nausea and vomiting for the past few days. At this time Patient received IV fluids and low-dose and lab work was obtained. Patient does not be hypokalemic at 3.2 potassium. Patient was given oral replacement. He is much better after receiving Zofran and GI cocktail. Patient is Symptoms are concerning for gastroparesis. Patient has had no vomiting while in the emergency department. Patient is having normal urination in bowel habits. Patient's case with Dr. Slater. At this time Patient discharged with following up with his dialysis tomorrow. I discussed discharge the Patient with nausea medication and Carafate. The lining of the stomach. Discussed return parameters all questions answered. - Lab Data Result diagrams: 03/18/18 15:52 03/18/18 15:52 Lab Results 03/18/18 03/18/18 03/18/18 Range/Units 15:52 15:52 15:52 WBC 7.2 (3.8-10.6) k/uL RBC 3.71 L (4.30-5.90) m/uL Hgb 10.5 L (13.0-17.5) gm/dL Hct 30.8 L (39.0-53.0) % MCV 83.1 (80.0-100.0) fL MCH 28.3 (25.0-35.0) pg MCHC 34.0 (31.0-37.0) g/dL RDW 15.0 (11.5-15.5) % Plt Count 117 L (150-450) k/uL Neutrophils % 77 % Lymphocytes % 16 % Monocytes % 5 % Eosinophils % 1 % Basophils % 0 % Neutrophils # 5.5 (1.3-7.7) k/uL Lymphocytes # 1.2 (1.0-4.8) k/uL Monocytes # 0.3 (0-1.0) k/uL Eosinophils # 0.1 (0-0.7) k/uL Basophils # 0.0 (0-0.2) k/uL Poikilocytosis Slight Sodium 137 (137-145) mmol/L Potassium 3.2 L (3.5-5.1) mmol/L Chloride 97 L (98-107) mmol/L Carbon Dioxide 37 H (22-30) mmol/L Anion Gap 3 mmol/L BUN 25 H (9-20) mg/dL Creatinine 5.25 H (0.66-1.25) mg/dL Est GFR (CKD-EPI)AfAm 15 (>60 ml/min/1.73 sqM) Est GFR (CKD-EPI)NonAf 13 (>60 ml/min/1.73 sqM) Glucose 102 H (74-99) mg/dL Plasma Lactic Acid [place] 1.0 (0.7-2.0) mmol/L Calcium 8.4 (8.4-10.2) mg/dL Total Bilirubin 0.6 (0.2-1.3) mg/dL AST 23 (17-59) U/L ALT 35 (21-72) U/L Alkaline Phosphatase 92 (38-126) U/L Total Protein 4.6 L (6.3-8.2) g/dL Albumin 2.3 L (3.5-5.0) g/dL Amylase <30 L (30-110) U/L Lipase 39 (23-300) U/L Urine Color Urine Appearance (Clear) Urine pH (5.0-8.0) Ur Specific [place] (1.001-1.035) Urine Protein (Negative) Urine Glucose (UA) (Negative) Urine Ketones (Negative) Urine Blood (Negative) Urine Nitrite (Negative) Urine Bilirubin (Negative) Urine Urobilinogen (<2.0) mg/dL Ur Leukocyte Esterase (Negative) Urine RBC (0-5) /hpf Urine WBC (0-5) /hpf Urine Bacteria (None) /hpf Hyaline Casts (0-2) /lpf Urine Mucus (None) /hpf Urine Sperm (None) /hpf Acetone, Qual Negative (Negative) 03/18/18 Range/Units 15:52 WBC (3.8-10.6) k/uL RBC (4.30-5.90) m/uL Hgb (13.0-17.5) gm/dL Hct (39.0-53.0) % MCV (80.0-100.0) fL MCH (25.0-35.0) pg MCHC (31.0-37.0) g/dL RDW (11.5-15.5) % Plt Count (150-450) k/uL Neutrophils % % Lymphocytes % % Monocytes % % Eosinophils % % Basophils % % Neutrophils # (1.3-7.7) k/uL Lymphocytes # (1.0-4.8) k/uL Monocytes # (0-1.0) k/uL Eosinophils # (0-0.7) k/uL Basophils # (0-0.2) k/uL Poikilocytosis Sodium (137-145) mmol/L Potassium (3.5-5.1) mmol/L Chloride (98-107) mmol/L Carbon Dioxide (22-30) mmol/L Anion Gap mmol/L BUN (9-20) mg/dL Creatinine (0.66-1.25) mg/dL Est GFR (CKD-EPI)AfAm (>60 ml/min/1.73 sqM) Est GFR (CKD-EPI)NonAf (>60 ml/min/1.73 sqM) Glucose (74-99) mg/dL Plasma Lactic Acid [place] (0.7-2.0) mmol/L Calcium (8.4-10.2) mg/dL Total Bilirubin (0.2-1.3) mg/dL AST (17-59) U/L ALT (21-72) U/L Alkaline Phosphatase (38-126) U/L Total Protein (6.3-8.2) g/dL Albumin (3.5-5.0) g/dL Amylase (30-110) U/L Lipase (23-300) U/L Urine Color Yellow Urine Appearance Clear (Clear) Urine pH 8.0 (5.0-8.0) Ur Specific [place] 1.020 (1.001-1.035) Urine Protein 3+ H (Negative) Urine Glucose (UA) 4+ H (Negative) Urine Ketones Negative (Negative) Urine Blood Small H (Negative) Urine Nitrite Negative (Negative) Urine Bilirubin Negative (Negative) Urine Urobilinogen <2.0 (<2.0) mg/dL Ur Leukocyte Esterase Negative (Negative) Urine RBC 5 (0-5) /hpf Urine WBC 5 (0-5) /hpf Urine Bacteria Rare H (None) /hpf Hyaline Casts 14 H (0-2) /lpf Urine Mucus Rare H (None) /hpf Urine Sperm Rare (None) /hpf Acetone, Qual (Negative) 03/18/18 17:07 EKG shows normal sinus rhythm with normal EKG. Ventricular rate 94 bpm. Was 160 ms. QRS ration 72. QT QTc is 366/457 ms. - Radiology Data Radiology results: report reviewed KUB shows evidence of ileus or enteritis. No signs of obstruction. Disposition Clinical Impression: Hypokalemia, Nausea & vomiting Disposition: HOME SELF-CARE Condition: Good Instructions (If sedation given, give patient instructions): Acute Nausea and Vomiting (ED) Additional Instructions: Patient advised to follow-up with dialysis, Continue to complete it tomorrow. He is nausea medicine as prescribed as well as using Carafate help with in her stomach pain. Recommended close follow-up with PCP. Prescriptions: Ondansetron Odt [Zofran Odt] 4 mg PO Q8HR PRN #20 tab PRN Reason: Nausea Sucralfate [Carafate] 1 gm PO BID #20 ml Sucralfate [Carafate] 1 gm PO ACHS #20 tablet Is patient prescribed a controlled substance at d/c from ED?: No Referrals: Sahra Hurtado MD [Primary Care Provider] - 1-2 days Time of Disposition: 18:26
[2018-03-18 16:35] LABS: Appearance,Urine Clear (Clear); Bacteria,Urine Rare /hpf; Bilirubin,Urine Negative (Negative); Blood,Urine Small (Negative); Color,Urine Yellow; Glucose,Urine (UA) 4+ (Negative); Hyaline Casts,Urine 14 /lpf (0-2); Ketones,Urine Negative (Negative); Leukocyte Esterase,Urine Negative (Negative); Mucus,Urine Rare /hpf; Nitrite,Urine Negative (Negative); Protein,Urine 3+ (Negative); RBC,Urine 5 /hpf (0-5); Sperm,Urine Rare /hpf; Urobilinogen,Urine <2.0 mg/dL (<2.0); WBC,Urine 5 /hpf (0-5)
[2018-03-18 16:39] LABS: Basophils % (A) 0 %; Eosinophils # (A) 0.1 k/uL (0-0.7); Eosinophils % (A) 1 %; HCT 30.8 % (39.0-53.0); HGB 10.5 gm/dL (13.0-17.5); Lymphocytes # (A) 1.2 k/uL (1.0-4.8); Lymphocytes % (A) 16 %; MCH 28.3 pg (25.0-35.0); MCV 83.1 fL (80.0-100.0); Mean Platelet Volume 7.3; Monocytes # (A) 0.3 k/uL (0-1.0); Monocytes % (A) 5 %; Neutrophils # (A) 5.5 k/uL (1.3-7.7); Neutrophils % (A) 77 %; Platelet Count 117 k/uL (150-450); Poikilocytosis Slight; RBC 3.71 m/uL (4.30-5.90); WBC 7.2 k/uL (3.8-10.6)
[2018-03-18 16:49] LABS: ALT 35 U/L (21-72); AST 23 U/L (17-59); Albumin 2.3 g/dL (3.5-5.0); Alkaline Phosphatase 92 U/L (38-126); Amylase <30 U/L (30-110); Anion Gap 3 mmol/L; Blood Urea Nitrogen 25 mg/dL (9-20); Calcium 8.4 mg/dL (8.4-10.2); Carbon Dioxide 37 mmol/L (22-30); Chloride 97 mmol/L (98-107); Glucose 102 mg/dL (74-99); Lipase 39 U/L (23-300); Potassium 3.2 mmol/L (3.5-5.1); Sodium 137 mmol/L (137-145); Total Bilirubin 0.6 mg/dL (0.2-1.3); Total Protein 4.6 g/dL (6.3-8.2)
[2018-03-18] MEDS: ONDANSETRON 4 MG ODT STARTER PACK 2 TAB BTL PO STA (18:54)
[2018-03-18] MEDS: POTASSIUM CHLORIDE ER 20 MEQ TAB.ER PO STA (18:55)
[2018-03-18 22:04] VITALS: RESP 16
[2018-03-18 22:07] VITALS: BP 137/88; PULSE 91; TEMP 98.9
== END 2018-03-18 19:10 | disposition home or self-care (01) ==
LOC: EC 14:22
DX: E87.6 Hypokalemia (principal); R11.2 Nausea with vomiting, unspecified; E10.22 Type 1 diabetes mellitus with diabetic chronic kidney disease; N18.6 End stage renal disease; Z87.891 Personal history of nicotine dependence; Z79.82 Long term (current) use of aspirin; Z79.899 Other long term (current) drug therapy; Z79.4 Long term (current) use of insulin; Z88.8 Allergy status to other drugs, medicaments and biological substances
CPT/HCPCS: 36415; 93005; 80053; 82150; 82009; 83605; 83690; 85025; 81001; 74018; 99284; 96374; 96361 ×4; J2405; S0119

== ENCOUNTER 2018-03-20 15:17 | Inpatient (IN) | payer MEDICARE, OTHER ==
[2018-03-20] MEDS ORDERED: ONDANSETRON 4 MG/2 ML VIAL IVP STA (15:28)
[2018-03-20] MEDS ORDERED: SODIUM CHLORIDE 0.9% 2,000 ML IV STA (15:28)
[2018-03-20] MEDS ORDERED: SODIUM CHLORIDE 0.9% 1,000 ML IV ONE (15:33)
[2018-03-20 15:39] LABS: Glucose,Whole Blood 255 mg/dL (75-99)
[2018-03-20 16:03] LABS: VBG PH 7.47 (7.31-7.41)
[2018-03-20 16:04] LABS: Basophils % (A) 1 %; Eosinophils # (A) 0.1 k/uL (0-0.7); Eosinophils % (A) 1 %; HCT 33.8 % (39.0-53.0); HGB 11.5 gm/dL (13.0-17.5); Lymphocytes # (A) 1.2 k/uL (1.0-4.8); Lymphocytes % (A) 17 %; MCH 28.4 pg (25.0-35.0); MCHC 34.1 g/dL (31.0-37.0); MCV 83.5 fL (80.0-100.0); Mean Platelet Volume 7.6; Monocytes # (A) 0.3 k/uL (0-1.0); Monocytes % (A) 4 %; Neutrophils # (A) 5.5 k/uL (1.3-7.7); Neutrophils % (A) 77 %; Platelet Count 134 k/uL (150-450); Poikilocytosis Slight; RBC 4.05 m/uL (4.30-5.90); RDW 14.5 % (11.5-15.5); WBC 7.1 k/uL (3.8-10.6)
[2018-03-20 16:13] LABS: ALT 33 U/L (21-72); AST 27 U/L (17-59); Albumin 2.8 g/dL (3.5-5.0); Alkaline Phosphatase 106 U/L (38-126); Amylase 39 U/L (30-110); Anion Gap 13 mmol/L; Blood Urea Nitrogen 45 mg/dL (9-20); Calcium 8.6 mg/dL (8.4-10.2); Carbon Dioxide 29 mmol/L (22-30); Chloride 91 mmol/L (98-107); Glucose 248 mg/dL (74-99); Lipase 66 U/L (23-300); Potassium 3.7 mmol/L (3.5-5.1); Sodium 133 mmol/L (137-145); Total Protein 5.3 g/dL (6.3-8.2)
[2018-03-20] MEDS ORDERED: LABETALOL SYRINGE 5 MG/ML IVP STA ×2 (16:41→18:32)
[2018-03-20] MEDS ORDERED: diphenhydrAMINE 50 MG/ML 1 ML VIAL IVP STA ×2 (16:41→18:47)
[2018-03-20 16:56] LABS: Appearance,Urine Clear (Clear); Bilirubin,Urine Negative (Negative); Blood,Urine Small (Negative); Color,Urine Yellow; Glucose,Urine (UA) 4+ (Negative); Ketones,Urine 1+ (Negative); Leukocyte Esterase,Urine Negative (Negative); Mucus,Urine Rare /hpf; Nitrite,Urine Negative (Negative); PH, Urine 7.5 (5.0-8.0); Protein,Urine 4+ (Negative); RBC,Urine 3 /hpf (0-5); Specific Gravity,Urine 1.017 (1.001-1.035); Urobilinogen,Urine <2.0 mg/dL (<2.0); WBC,Urine 6 /hpf (0-5)
[2018-03-20] MEDS: SODIUM CHLORIDE 0.9% 1,000 ML IV SCH (16:56)
--- NOTE | 2018-03-20 16:57 | ED ---
Nausea/Vomiting/Diarrhea HPI - General Chief complaint: Nausea/Vomiting/Diarrhea Stated complaint: vomiting Time Seen by Provider: 03/20/18 15:27 Source: patient, RN notes reviewed Mode of arrival: ambulatory Limitations: no limitations - History of Present Illness Initial comments: 32-year-old male presents emergency Department with chief complaints of vomiting , abdominal pain, not feeling well. Patient states he was seen here a few days ago for similar complaints. Patient has missed his last 2 dialysis complaints. Patient states he has not go today though he called his ward supervisor advised him come emergency department to be most likely admitted. Patient states his blood sugars have been labile. Patient states he feels very weak and rundown he does make urine approximately 2-3 times daily. He has no dysuria. Patient states she currently does have his insulin pump on. Patient states she's been having burning in his chest from acid reflux. Patient denies any recent surgeries no fever or chills at home. - Related Data Home Medications Medication Instructions Recorded Confirmed Aspirin EC [Ecotrin Low Dose] 81 mg PO HS 06/17/17 03/20/18 Omeprazole 20 mg PO DAILY 08/28/17 03/20/18 Cyanocobalamin (Vitamin B-12) 1,000 mcg PO DAILY 11/28/17 03/20/18 [Vitamin B-12] Multivitamin [Multivitamins Adult 1 tab PO DAILY 11/28/17 03/20/18 Gummies] Insulin Aspart (For Pump) [NovoLOG 0.01 unit SQ-PUMP CONTINUOUS 03/20/18 (For Pump)] Potassium Chloride ER [K-Dur 10] 10 meq PO DAILY 03/20/18 03/20/18 Previous Rx's Medication Instructions Recorded Furosemide [Lasix] 80 mg PO BID@0900,1600 #60 tab 12/08/17 amLODIPine [Norvasc] 5 mg PO BID #60 tab 12/08/17 Ondansetron Odt [Zofran Odt] 4 mg PO Q8HR PRN #20 tab 03/18/18 Sucralfate [Carafate] 1 gm PO ACHS #20 tablet 03/18/18 Allergies Allergy/AdvReac Type Severity Reaction Status Date / Time metoclopramide [From Reglan] Allergy Rash/Hives Verified 03/20/18 15:41 Review of Systems ROS Statement: Those systems with pertinent positive or pertinent negative responses have been documented in the HPI. ROS Other: All systems not noted in ROS Statement are negative. Past Medical History Past Medical History: Diabetes Mellitus, Eye Disorder Additional Past Medical History / Comment(s): IDDM type I, DKA, CKD stage IV, anemia, bilateral cataracts, bilateral eye pain since laser surgery April 2017 due to retinal bleeds and since has had increased difficulty with vision-saw Dr. Renteria (opthamologist) and states he was told it could be neurological. History of Any Multi-Drug Resistant Organisms: None Reported Past Surgical History: Hernia Repair Additional Past Surgical History / Comment(s): 04/2017 bilateral laser eye surgery for retinal bleeds unsuccessful, colonoscopy Past Anesthesia/Blood Transfusion Reactions: No Reported Reaction Past Psychological History: No Psychological Hx Reported Smoking Status: Former smoker Past Alcohol Use History: None Reported Past Drug Use History: None Reported - Past Family History Father Family Medical History: No Reported History Additional Family Medical History / Comment(s): Father is healthy Mother Family Medical History: No Reported History Additional Family Medical History / Comment(s): Mother is healthy. General Exam Limitations: no limitations General appearance: alert, in no apparent distress Head exam: Present: atraumatic, normocephalic, normal inspection Neck exam: Present: normal inspection. Absent: tenderness, meningismus, lymphadenopathy Respiratory exam: Present: normal lung sounds bilaterally. Absent: respiratory distress, wheezes, rales, rhonchi, stridor Cardiovascular Exam: Present: regular rate, normal rhythm, normal heart sounds. Absent: systolic murmur, diastolic murmur, rubs, gallop, clicks GI/Abdominal exam: Present: soft, tenderness (Diffuse [id number]), normal bowel sounds. Absent: distended, guarding, rebound, rigid Back exam: Present: CVA tenderness (R), CVA tenderness (L) Skin exam: Present: warm, dry, intact, normal color. Absent: rash Course Vital Signs 03/20/18 03/20/18 03/20/18 15:19 15:53 16:52 Temperature 98.3 F Pulse Rate 93 87 84 Respiratory 20 18 18 Rate Blood Pressure 152/107 181/121 194/127 O2 Sat by Pulse 99 97 96 Oximetry 02/08/19 02/08/19 02/08/19 17:06 17:17 17:18 Temperature Pulse Rate Respiratory Rate Blood Pressure 167/113 157/98 157/98 O2 Sat by Pulse Oximetry Medical Decision Making - Medical Decision Making 32-year-old male presents from for nausea vomiting placed female, missed dialysis. Patient will be admitted for gentle hydration, dialysis, glucose monitoring. - Lab Data Result diagrams: 03/20/18 15:41 03/20/18 15:41 Lab Results 03/20/18 03/20/18 03/20/18 Range/Units 15:36 15:41 15:41 WBC 7.1 (3.8-10.6) k/uL RBC 4.05 L (4.30-5.90) m/uL Hgb 11.5 L (13.0-17.5) gm/dL Hct 33.8 L (39.0-53.0) % MCV 83.5 (80.0-100.0) fL MCH 28.4 (25.0-35.0) pg MCHC 34.1 (31.0-37.0) g/dL RDW 14.5 (11.5-15.5) % Plt Count 134 L (150-450) k/uL Neutrophils % 77 % Lymphocytes % 17 % Monocytes % 4 % Eosinophils % 1 % Basophils % 1 % Neutrophils # 5.5 (1.3-7.7) k/uL Lymphocytes # 1.2 (1.0-4.8) k/uL Monocytes # 0.3 (0-1.0) k/uL Eosinophils # 0.1 (0-0.7) k/uL Basophils # 0.0 (0-0.2) k/uL Poikilocytosis Slight VBG pH (7.31-7.41) VBG pCO2 (37-51) mmHg VBG HCO3 (24-28) mmol/L Sodium 133 L (137-145) mmol/L Potassium 3.7 (3.5-5.1) mmol/L Chloride 91 L (98-107) mmol/L Carbon Dioxide 29 (22-30) mmol/L Anion Gap 13 mmol/L BUN 45 H (9-20) mg/dL Creatinine 7.73 H* (0.66-1.25) mg/dL Est GFR (CKD-EPI)AfAm 10 (>60 ml/min/1.73 sqM) Est GFR (CKD-EPI)NonAf 8 (>60 ml/min/1.73 sqM) Glucose 248 H (74-99) mg/dL POC Glucose (mg/dL) 255 H (75-99) mg/dL POC Glu [employer] Daksha Cooper Calcium 8.6 (8.4-10.2) mg/dL Total Bilirubin 1.0 (0.2-1.3) mg/dL AST 27 (17-59) U/L ALT 33 (21-72) U/L Alkaline Phosphatase 106 (38-126) U/L Total Protein 5.3 L (6.3-8.2) g/dL Albumin 2.8 L (3.5-5.0) g/dL Amylase 39 (30-110) U/L Lipase 66 (23-300) U/L Urine Color Urine Appearance (Clear) Urine pH (5.0-8.0) Ur Specific [place] (1.001-1.035) Urine Protein (Negative) Urine Glucose (UA) (Negative) Urine Ketones (Negative) Urine Blood (Negative) Urine Nitrite (Negative) Urine Bilirubin (Negative) Urine Urobilinogen (<2.0) mg/dL Ur Leukocyte Esterase (Negative) Urine RBC (0-5) /hpf Urine WBC (0-5) /hpf Urine Mucus (None) /hpf Acetone, Qual Positive (Negative) 03/20/18 03/20/18 Range/Units 15:41 16:30 WBC (3.8-10.6) k/uL RBC (4.30-5.90) m/uL Hgb (13.0-17.5) gm/dL Hct (39.0-53.0) % MCV (80.0-100.0) fL MCH (25.0-35.0) pg MCHC (31.0-37.0) g/dL RDW (11.5-15.5) % Plt Count (150-450) k/uL Neutrophils % % Lymphocytes % % Monocytes % % Eosinophils % % Basophils % % Neutrophils # (1.3-7.7) k/uL Lymphocytes # (1.0-4.8) k/uL Monocytes # (0-1.0) k/uL Eosinophils # (0-0.7) k/uL Basophils # (0-0.2) k/uL Poikilocytosis VBG pH 7.47 H (7.31-7.41) VBG pCO2 39 (37-51) mmHg VBG HCO3 28 (24-28) mmol/L Sodium (137-145) mmol/L Potassium (3.5-5.1) mmol/L Chloride (98-107) mmol/L Carbon Dioxide (22-30) mmol/L Anion Gap mmol/L BUN (9-20) mg/dL Creatinine (0.66-1.25) mg/dL Est GFR (CKD-EPI)AfAm (>60 ml/min/1.73 sqM) Est GFR (CKD-EPI)NonAf (>60 ml/min/1.73 sqM) Glucose (74-99) mg/dL POC Glucose (mg/dL) (75-99) mg/dL POC Glu [employer] ID Calcium (8.4-10.2) mg/dL Total Bilirubin (0.2-1.3) mg/dL AST (17-59) U/L ALT (21-72) U/L Alkaline Phosphatase (38-126) U/L Total Protein (6.3-8.2) g/dL Albumin (3.5-5.0) g/dL Amylase (30-110) U/L Lipase (23-300) U/L Urine Color Yellow Urine Appearance Clear (Clear) Urine pH 7.5 (5.0-8.0) Ur Specific [place] 1.017 (1.001-1.035) Urine Protein 4+ H (Negative) Urine Glucose (UA) 4+ H (Negative) Urine Ketones 1+ H (Negative) Urine Blood Small H (Negative) Urine Nitrite Negative (Negative) Urine Bilirubin Negative (Negative) Urine Urobilinogen <2.0 (<2.0) mg/dL Ur Leukocyte Esterase Negative (Negative) Urine RBC 3 (0-5) /hpf Urine WBC 6 H (0-5) /hpf Urine Mucus Rare H (None) /hpf Acetone, Qual (Negative) Disposition Clinical Impression: Nausea & vomiting, Hyperglycemia, Renal failure, Dehydration Disposition: ADMITTED IP TO THIS [facility] Condition: Fair Referrals: Sahra Hurtado MD [Primary Care Provider] - 1-2 days
[2018-03-20] MEDS ORDERED: ACETAMINOPHEN TAB 325 MG TAB PO PRN (17:30)
[2018-03-20] MEDS ORDERED: NALOXONE 0.4 MG/ML 1 ML VIAL IV PRN (17:30)
[2018-03-20] MEDS: ONDANSETRON 4 MG/2 ML VIAL IVP PRN ×2 (18:45→23:20)
[2018-03-20] MEDS ORDERED: LORazepam 2 MG/ML INJ IV STA (18:47)
[2018-03-20 19:46] LABS: Glucose,Whole Blood 251 mg/dL (75-99)
[2018-03-20] MEDS ORDERED: INSPUCOR MISCELLANE PRN (20:45)
[2018-03-20] MEDS ORDERED: INSULIN PUMP BASAL RATES 1 EACH MISC MISCELLANE PRN (20:45)
[2018-03-20] MEDS ORDERED: FAMOTIDINE 20 MG/2 ML VIAL IV SCH (20:45)
[2018-03-20] MEDS ORDERED: INSULIN ASPART (NovoLOG) 100 UNIT/ML VIAL SQ PRN (20:45)
[2018-03-20] MEDS ORDERED: ASPIRIN 81 MG PO SCH (21:00)
[2018-03-20] MEDS ORDERED: SUCRALFATE 1 GM TAB PO SCH (21:00)
[2018-03-20] MEDS ORDERED: amLODIPine 5 MG TAB PO SCH (21:00)
[2018-03-20] MEDS: INSULIN PUMP MEAL BOLUS 1 UNIT MISC MISCELLANE SCH (21:20)
[2018-03-20 21:23] LABS: Glucose,Whole Blood 233 mg/dL (75-99)
[2018-03-20] MEDS ORDERED: hydrALAZINE HCL 20 MG/ML 1 ML VIAL IVP PRN (23:13)
[2018-03-21 03:31] LABS: Glucose,Whole Blood 195 mg/dL (75-99)
[2018-03-21] MEDS: SODIUM CHLORIDE 0.9% 1,000 ML IV SCH (05:50)
[2018-03-21] MEDS: INSULIN PUMP MEAL BOLUS 1 UNIT MISC MISCELLANE SCH (06:38)
[2018-03-21] MEDS: SUCRALFATE 1 GM TAB PO SCH ×2 (06:41→17:26)
[2018-03-21 07:58] LABS: Calcium 7.7 mg/dL (8.4-10.2); Potassium 3.4 mmol/L (3.5-5.1)
[2018-03-21 08:19] LABS: Basophils % (A) 1 %; Eosinophils # (A) 0.1 k/uL (0-0.7); Eosinophils % (A) 2 %; HCT 27.2 % (39.0-53.0); Lymphocytes # (A) 1.5 k/uL (1.0-4.8); Lymphocytes % (A) 19 %; MCH 29.2 pg (25.0-35.0); MCHC 34.4 g/dL (31.0-37.0); MCV 84.9 fL (80.0-100.0); Mean Platelet Volume 7.1; Monocytes # (A) 0.5 k/uL (0-1.0); Monocytes % (A) 7 %; Neutrophils # (A) 5.4 k/uL (1.3-7.7); Neutrophils % (A) 71 %; Platelet Count 141 k/uL (150-450); RDW 14.6 % (11.5-15.5); WBC 7.6 k/uL (3.8-10.6)
[2018-03-21 08:23] LABS: HGB 9.4 gm/dL (13.0-17.5)
[2018-03-21] MEDS ORDERED: FAMOTIDINE 20 MG/2 ML VIAL IV SCH (09:00)
[2018-03-21] MEDS ORDERED: amLODIPine 5 MG TAB PO SCH (09:00)
[2018-03-21] MEDS ORDERED: ASPIRIN 81 MG PO SCH (09:00)
[2018-03-21] MEDS ORDERED: FUROSEMIDE 80 MG TAB PO SCH (09:00)
[2018-03-21 10:58] VITALS: RESP 18
--- NOTE | 2018-03-21 11:00 | P.HPIM ---
History of Present Illness 32-year-old male came in with Compensative nausea vomiting epigastric abdominal pain all of which improved at this time patient does have history of gastroparesis because of which patient has been vomiting recently. As a for nausea and vomiting patient did miss hemodialysis. And his symptoms is bit worse with generalized tiredness weakness because of missing hemodialysis and uremia. Patient does have insulin pump for his type 2 diabetes mellitus. Patient blood pressure is bit elevated because of missing hemodialysis. Not have any chest x-ray available patient doesn't have any crackles on exam patient does urinate patient is on 80 twice a day of Lasix which will be continued IV fluids were discontinued at this time. Patient probably can undergo hemodialysis today after that if patient is able to tolerate by mouth diet patient will be discharged today patient isn't symptomatic management for nausea. Patient denied any body aches fever chills. Abdominal pain is epigastric minimal vague Review of Systems REVIEW OF SYSTEMS: CONSTITUTIONAL: As mentioned in HPI HEENT: No recent visual problems or hearing problems. Denied any sore throat. CARDIOVASCULAR: No chest pain, orthopnea, PND, no palpitations, no syncope. PULMONARY: No shortness of breath, no cough, no hemoptysis. GASTROINTESTINAL: As mentioned in HPI NEUROLOGICAL: No headaches, no weakness, no numbness. HEMATOLOGICAL: Denies any bleeding or petechiae. GENITOURINARY: Denies any burning micturition, frequency, or urgency. MUSCULOSKELETAL/RHEUMATOLOGICAL: Denies any joint pain, swelling, or any muscle pain. ENDOCRINE: Denies any polyuria or polydipsia. The rest of the 14-point review of systems is negative. Past Medical History Past Medical History: Heart Failure, Diabetes Mellitus, Eye Disorder, GERD/ Reflux Additional Past Medical History / Comment(s): IDDM type I,insulin pump DKA, CKD stage v- received hemodialysis but missed this past fri and fri because he was sick., neuropathy anemia-has recieved blood in past, bilateral cataracts, bilateral eye pain since laser surgery April 2017 due to retinal bleeds and since has had increased difficulty with vision-saw Dr. Renteria ( opthamologist) and states he was told it could be neurological. "testing for gastroparesis" History of Any Multi-Drug Resistant Organisms: None Reported Past Surgical History: Hernia Repair Additional Past Surgical History / Comment(s): 04/2017 bilateral laser eye surgery for retinal bleeds unsuccessful, colonoscopydialysis cath placed rt upper chest on 12-03-17 Past Anesthesia/Blood Transfusion Reactions: No Reported Reaction Smoking Status: Former smoker - Past Family History Father Family Medical History: No Reported History Additional Family Medical History / Comment(s): Father is healthy Mother Family Medical History: No Reported History Additional Family Medical History / Comment(s): Mother is healthy. Medications and Allergies Home Medications Medication Instructions Recorded Confirmed Type Aspirin EC [Ecotrin Low Dose] 81 mg PO HS 06/17/17 03/20/18 History Omeprazole 20 mg PO DAILY 08/28/17 03/20/18 History Cyanocobalamin (Vitamin B-12) 1,000 mcg PO DAILY 11/28/17 03/20/18 History [Vitamin B-12] Multivitamin [Multivitamins Adult 1 tab PO DAILY 11/28/17 03/20/18 History Gummies] Furosemide [Lasix] 80 mg PO BID@0900,1600 #60 tab 12/08/17 03/20/18 Rx amLODIPine [Norvasc] 5 mg PO BID #60 tab 12/08/17 03/20/18 Rx Ondansetron Odt [Zofran Odt] 4 mg PO Q8HR PRN #20 tab 03/18/18 03/20/18 Rx Sucralfate [Carafate] 1 gm PO ACHS #20 tablet 03/18/18 03/20/18 Rx Insulin Aspart (For Pump) [NovoLOG 0.01 unit SQ-PUMP CONTINUOUS 03/20/18 History (For Pump)] Potassium Chloride ER [K-Dur 10] 10 meq PO DAILY 03/20/18 03/20/18 History Allergies Allergy/AdvReac Type Severity Reaction Status Date / Time metoclopramide [From Reglan] Allergy Rash/Hives Verified 03/20/18 15:41 Physical Exam Vitals: Vital Signs Temp Pulse Pulse Resp BP BP Pulse Ox 03/21/18 04:00 95 16 164/86 94 L 03/21/18 00:32 99 16 172/90 95 03/21/18 00:00 99 18 206/115 97 03/20/18 20:01 73 94 L 03/20/18 20:00 97.7 F 91 18 169/106 95 02/08/19 19:46 161/105 03/20/18 18:58 89 18 172/116 96 03/20/18 18:50 89 18 96 03/20/18 17:18 157/98 03/20/18 17:17 157/98 03/20/18 17:06 167/113 03/20/18 16:52 84 18 194/127 96 03/20/18 15:53 87 18 181/121 97 03/20/18 15:19 98.3 F 93 20 152/107 99 Intake and Output 03/20/18 03/21/18 03/21/18 22:59 06:59 14:59 Intake Total 118 Balance 118 Intake: Oral 118 Other: Voiding Method Urinal # Voids 1 Weight 63.503 kg 61.3 kg PHYSICAL EXAMINATION: GENERAL: The patient is alert and oriented x3, not in any acute distress. He is tired and fatigued HEENT: Pupils are round and equally reacting to light. EOMI. No scleral icterus. No conjunctival pallor. Normocephalic, atraumatic. No pharyngeal erythema. No thyromegaly. CARDIOVASCULAR: S1 and S2 present. No murmurs, rubs, or gallops. PULMONARY: Chest is clear to auscultation, no wheezing or crackles. ABDOMEN: Soft, nontender, nondistended, normoactive bowel sounds. No palpable organomegaly. MUSCULOSKELETAL: No joint swelling or deformity. EXTREMITIES: No cyanosis, clubbing, or pedal edema. NEUROLOGICAL: Gross neurological examination did not reveal any focal deficits. SKIN: No rashes. Results CBC & Chem 7: 03/21/18 07:17 03/21/18 07:17 Labs: Abnormal Lab Results - Last 24 Hours (Table) 03/20/18 03/20/18 03/20/18 Range/Units 15:36 15:41 15:41 RBC 4.05 L (4.30-5.90) m/uL Hgb 11.5 L (13.0-17.5) gm/dL Hct 33.8 L (39.0-53.0) % Plt Count 134 L (150-450) k/uL VBG pH (7.31-7.41) Sodium 133 L (137-145) mmol/L Potassium (3.5-5.1) mmol/L Chloride 91 L (98-107) mmol/L Carbon Dioxide (22-30) mmol/L BUN 45 H (9-20) mg/dL Creatinine 7.73 H* (0.66-1.25) mg/dL Glucose 248 H (74-99) mg/dL POC Glucose (mg/dL) 255 H (75-99) mg/dL Calcium (8.4-10.2) mg/dL Total Protein 5.3 L (6.3-8.2) g/dL Albumin 2.8 L (3.5-5.0) g/dL Urine Protein (Negative) Urine Glucose (UA) (Negative) Urine Ketones (Negative) Urine Blood (Negative) Urine WBC (0-5) /hpf Urine Mucus (None) /hpf 03/20/18 03/20/18 03/20/18 Range/Units 15:41 16:30 19:43 RBC (4.30-5.90) m/uL Hgb (13.0-17.5) gm/dL Hct (39.0-53.0) % Plt Count (150-450) k/uL VBG pH 7.47 H (7.31-7.41) Sodium (137-145) mmol/L Potassium (3.5-5.1) mmol/L Chloride (98-107) mmol/L Carbon Dioxide (22-30) mmol/L BUN (9-20) mg/dL Creatinine (0.66-1.25) mg/dL Glucose (74-99) mg/dL POC Glucose (mg/dL) 251 H (75-99) mg/dL Calcium (8.4-10.2) mg/dL Total Protein (6.3-8.2) g/dL Albumin (3.5-5.0) g/dL Urine Protein 4+ H (Negative) Urine Glucose (UA) 4+ H (Negative) Urine Ketones 1+ H (Negative) Urine Blood Small H (Negative) Urine WBC 6 H (0-5) /hpf Urine Mucus Rare H (None) /hpf 03/20/18 03/21/18 03/21/18 Range/Units 21:12 03:28 07:17 RBC 3.20 L (4.30-5.90) m/uL Hgb 9.4 L D (13.0-17.5) gm/dL Hct 27.2 L (39.0-53.0) % Plt Count 141 L (150-450) k/uL VBG pH (7.31-7.41) Sodium (137-145) mmol/L Potassium (3.5-5.1) mmol/L Chloride (98-107) mmol/L Carbon Dioxide (22-30) mmol/L BUN (9-20) mg/dL Creatinine (0.66-1.25) mg/dL Glucose (74-99) mg/dL POC Glucose (mg/dL) 233 H 195 H (75-99) mg/dL Calcium (8.4-10.2) mg/dL Total Protein (6.3-8.2) g/dL Albumin (3.5-5.0) g/dL Urine Protein (Negative) Urine Glucose (UA) (Negative) Urine Ketones (Negative) Urine Blood (Negative) Urine WBC (0-5) /hpf Urine Mucus (None) /hpf 03/21/18 Range/Units 07:17 RBC (4.30-5.90) m/uL Hgb (13.0-17.5) gm/dL Hct (39.0-53.0) % Plt Count (150-450) k/uL VBG pH (7.31-7.41) Sodium 133 L (137-145) mmol/L Potassium 3.4 L (3.5-5.1) mmol/L Chloride 96 L (98-107) mmol/L Carbon Dioxide 31 H (22-30) mmol/L BUN 46 H (9-20) mg/dL Creatinine 7.95 H* (0.66-1.25) mg/dL Glucose 174 H (74-99) mg/dL POC Glucose (mg/dL) (75-99) mg/dL Calcium 7.7 L (8.4-10.2) mg/dL Total Protein (6.3-8.2) g/dL Albumin (3.5-5.0) g/dL Urine Protein (Negative) Urine Glucose (UA) (Negative) Urine Ketones (Negative) Urine Blood (Negative) Urine WBC (0-5) /hpf Urine Mucus (None) /hpf Thrombosis Risk Factor Assmnt - Choose All That Apply Any of the Below Risk Factors Present?: Yes Each Factor Represents 1 point: Medical pt on bed rest Other Risk Factors: No Other congenital or acquired thrombophilia - If yes, enter type in comment: No Thrombosis Risk Factor Assessment Total Risk Factor Score: 1 Thrombosis Risk Factor Assessment Level: Low Risk Assessment and Plan Plan: -Nausea vomiting abdominal pain: Secondary to gastroparesis which improved patient's diet will be advanced if he is able to tolerate patient was discharged on hemodialysis -Incisional disease secondary to diabetic nephropathy and patient is on hemodialysis patient missed 2 sessions of hemodialysis will be discharged after dialysis as mentioned above -type 2 diabetes mellitus for which patient is on insulin pump with rate fairly well controlled blood sugars patient was continued on resumed on insulin. -Hyponatremia is multifactorial hypovolemia along with Lasix. I'll let nephrology titrate his Lasix to his end-stage renal disease. -Diabetic peripheral neuropathy and nephropathy Gastroesophageal reflux disease - hypertension elevated blood pressure expected to improve with hemodialysis, as needed IV hydralazine will be discontinued and patient resumed on his home medications. he probably can be discharged after hemodialysis.
--- NOTE | 2018-03-21 11:01 | P.DS ---
Providers Date of admission: 03/20/18 17:34 Attending physician: Anil Haji Consults: 03/20/18 17:30 Consult Physician Stat Consulting Provider: Claire Peck Consult Reason/Comments: Dialysis Do you want consulting provider notified?: Yes Primary care physician: Sahra Hurtado Hospital Course: Please refer to HPI Patient Condition at Discharge: Fair Plan - Discharge Summary Discharge Rx Participant: Yes New Discharge Prescriptions: No Action Aspirin EC [Ecotrin Low Dose] 81 mg PO HS Omeprazole 20 mg PO DAILY Multivitamin [Multivitamins Adult Gummies] 1 tab PO DAILY Cyanocobalamin (Vitamin B-12) [Vitamin B-12] 1,000 mcg PO DAILY amLODIPine [Norvasc] 5 mg PO BID #60 tab Furosemide [Lasix] 80 mg PO BID@0900,1600 #60 tab Ondansetron Odt [Zofran Odt] 4 mg PO Q8HR PRN #20 tab PRN Reason: Nausea Sucralfate [Carafate] 1 gm PO ACHS #20 tablet Potassium Chloride ER [K-Dur 10] 10 meq PO DAILY Insulin Aspart (For Pump) [NovoLOG (For Pump)] 0.01 unit SQ-PUMP CONTINUOUS Discharge Medication List Aspirin EC [Ecotrin Low Dose] 81 mg PO HS 06/17/17 [History] Omeprazole 20 mg PO DAILY 08/28/17 [History] Cyanocobalamin (Vitamin B-12) [Vitamin B-12] 1,000 mcg PO DAILY 11/28/17 [ History] Multivitamin [Multivitamins Adult Gummies] 1 tab PO DAILY 11/28/17 [History] Furosemide [Lasix] 80 mg PO BID@0900,1600 #60 tab 12/08/17 [Rx] amLODIPine [Norvasc] 5 mg PO BID #60 tab 12/08/17 [Rx] Ondansetron Odt [Zofran Odt] 4 mg PO Q8HR PRN #20 tab 03/18/18 [Rx] Sucralfate [Carafate] 1 gm PO ACHS #20 tablet 03/18/18 [Rx] Insulin Aspart (For Pump) [NovoLOG (For Pump)] 0.01 unit SQ-PUMP CONTINUOUS 09/28 [History] Potassium Chloride ER [K-Dur 10] 10 meq PO DAILY 03/20/18 [History] Follow up Appointment(s)/Referral(s): Sahra Hurtado MD [Primary Care Provider] - 3 Days Discharge Disposition: HOME SELF-CARE
--- NOTE | 2018-03-21 11:27 | P.NPCON ---
History of Present Illness - Reason for Consult end stage renal disease - History of Present Illness Reason for consultation: End-stage renal disease History of present illness: Patient is a 32-year-old male seen in consultation for end-stage renal disease. [facility] Patient presented to the hospital due to abdominal pain and vomiting going on for the last few days. Patient's last hemodialysis was on Friday. He missed the last 2 treatments due to not feeling well. No diarrhea. Overall she starting to feel better. He did tolerate breakfast this morning. Blood pressures are on the higher side. No fever or chills. Currently seen while undergoing hemodialysis. He's been complaining of hiccups. Vital signs are stable. General: The patient appeared well nourished and normally developed. HEENT: Head exam is unremarkable. Neck is without jugular venous distension. LUNGS: Lungs are clear to auscultation and percussion. Breath sounds decreased. HEART: Rate and Rhythm are regular. First and second heart sounds normal. No murmurs, rubs or gallops. ABDOMEN: Abdominal exam reveals normal bowel sounds. Non-tender and non- distended. No evidence of peritonitis. EXTREMITITES: No clubbing, cyanosis, or edema. Past Medical History Past Medical History: Heart Failure, Diabetes Mellitus, Eye Disorder, GERD/ Reflux Additional Past Medical History / Comment(s): IDDM type I,insulin pump DKA, CKD stage v- received hemodialysis but missed this past fri and fri because he was sick., neuropathy anemia-has recieved blood in past, bilateral cataracts, bilateral eye pain since laser surgery April 2017 due to retinal bleeds and since has had increased difficulty with vision-saw Dr. Renteria ( opthamologist) and states he was told it could be neurological. "testing for gastroparesis" History of Any Multi-Drug Resistant Organisms: None Reported Past Surgical History: Hernia Repair Additional Past Surgical History / Comment(s): 04/2017 bilateral laser eye surgery for retinal bleeds unsuccessful, colonoscopydialysis cath placed rt upper chest on 12-03-17 Past Anesthesia/Blood Transfusion Reactions: No Reported Reaction Smoking Status: Former smoker - Past Family History Father Family Medical History: No Reported History Additional Family Medical History / Comment(s): Father is healthy Mother Family Medical History: No Reported History Additional Family Medical History / Comment(s): Mother is healthy. Medications and Allergies Home Medications Medication Instructions Recorded Confirmed Type Aspirin EC [Ecotrin Low Dose] 81 mg PO HS 06/17/17 03/20/18 History Omeprazole 20 mg PO DAILY 08/28/17 03/20/18 History Cyanocobalamin (Vitamin B-12) 1,000 mcg PO DAILY 11/28/17 03/20/18 History [Vitamin B-12] Multivitamin [Multivitamins Adult 1 tab PO DAILY 11/28/17 03/20/18 History Gummies] Furosemide [Lasix] 80 mg PO BID@0900,1600 #60 tab 12/08/17 03/20/18 Rx amLODIPine [Norvasc] 5 mg PO BID #60 tab 12/08/17 03/20/18 Rx Ondansetron Odt [Zofran Odt] 4 mg PO Q8HR PRN #20 tab 03/18/18 03/20/18 Rx Sucralfate [Carafate] 1 gm PO ACHS #20 tablet 03/18/18 03/20/18 Rx Insulin Aspart (For Pump) [NovoLOG 0.01 unit SQ-PUMP CONTINUOUS 03/20/18 History (For Pump)] Potassium Chloride ER [K-Dur 10] 10 meq PO DAILY 03/20/18 03/20/18 History Allergies Allergy/AdvReac Type Severity Reaction Status Date / Time metoclopramide [From Reglan] Allergy Rash/Hives Verified 03/20/18 15:41 Physical Exam Vitals: Vital Signs Temp Pulse Pulse Resp BP BP Pulse Ox 03/21/18 08:00 98.1 F 104 H 18 189/102 96 03/21/18 04:00 95 16 164/86 94 L 03/21/18 00:32 99 16 172/90 95 03/21/18 00:00 99 18 206/115 97 03/20/18 20:01 73 94 L 03/20/18 20:00 97.7 F 91 18 169/106 95 03/20/18 19:46 161/105 03/20/18 18:58 89 18 172/116 96 03/20/18 18:50 89 18 96 03/20/18 17:18 157/98 03/20/18 17:17 157/98 03/20/18 17:06 167/113 03/20/18 16:52 84 18 194/127 96 03/20/18 15:53 87 18 181/121 97 03/20/18 15:19 98.3 F 93 20 152/107 99 Intake and Output 03/20/18 03/21/18 03/21/18 22:59 06:59 14:59 Intake Total 118 Balance 118 Intake: Oral 118 Other: Voiding Method Urinal Urinal # Voids 1 Weight 63.503 kg 61.3 kg Results - Lab Results Most recent lab results Calcium 7.7 mg/dL (8.4-10.2) L 03/21/18 07:17 03/21/18 07:17 03/21/18 07:17 Assessment and Plan Plan: Assessment: 1. End-stage renal disease maintained on hemodialysis on a Friday schedule. 2. Hypokalemia secondary to diuresis and poor oral intake. 3. Hypertension with chronic kidney disease. Home blood pressure meds have been resumed. 4. Diabetes mellitus. 5. Vomiting with abdominal discomfort related to diabetic gastroparesis. 6. Hyponatremia secondary to chronic kidney disease. 7. Anemia of chronic kidney disease. Plan: Currently seen while undergoing hemodialysis. Next treatment on Friday. I will use high potassium bath for the remaining of dialysis treatment. Repeat potassium level at 5 PM today. Stable for discharge from nephrology standpoint this evening. Thank you for the consultation. I will continue to follow the patient with you during his hospital stay.
[2018-03-21 11:56] LABS: Glucose,Whole Blood 220 mg/dL (75-99)
[2018-03-21 12:48] VITALS: BMI 18.8
[2018-03-21 16:41] LABS: Glucose,Whole Blood 276 mg/dL (75-99)
[2018-03-21] MEDS: FUROSEMIDE 80 MG TAB PO SCH ×2 (17:23→17:26)
[2018-03-21 18:27] LABS: Potassium 4.4 mmol/L (3.5-5.1)
[2018-03-21 18:44] VITALS: BP 166/97; PULSE 94; TEMP 98.2
[2018-03-21 23:33] LABS: Hepatitis B Surface AB- Quant 65.6 mIU/mL
[2018-03-23 08:37] LABS: Hemoglobin A1C 5.8
== END 2018-03-21 19:40 | disposition home or self-care (01) | DRG 73 ==
LOC: EC 15:17 → 3SCARD 17:34
PROVIDERS: ADMIT Hospitalist; ATTEND Hospitalist
PROC: 5A1D70Z Performance of Urinary Filtration, Intermittent, Less than 6 Hours Per Day (ICD-10-PCS; principal; 2018-03-21)
DX: E11.43 Type 2 diabetes mellitus with diabetic autonomic (poly)neuropathy (principal); N18.6 End stage renal disease; I13.2 Hypertensive heart and chronic kidney disease with heart failure and with stage 5 chronic kidney disease, or end stage renal disease; E87.1 Hypo-osmolality and hyponatremia; K31.84 Gastroparesis; Z96.41 Presence of insulin pump (external) (internal); E11.22 Type 2 diabetes mellitus with diabetic chronic kidney disease; I50.9 Heart failure, unspecified; E87.6 Hypokalemia; D63.1 Anemia in chronic kidney disease; E11.42 Type 2 diabetes mellitus with diabetic polyneuropathy; E11.65 Type 2 diabetes mellitus with hyperglycemia; E86.0 Dehydration; E86.1 Hypovolemia; K21.9 Gastro-esophageal reflux disease without esophagitis; T50.2X5A Adverse effect of carbonic-anhydrase inhibitors, benzothiadiazides and other diuretics, initial encounter; Z79.4 Long term (current) use of insulin; Z99.2 Dependence on renal dialysis; Z79.899 Other long term (current) drug therapy; Z87.891 Personal history of nicotine dependence; Z91.15 Patient's noncompliance with renal dialysis
CPT/HCPCS: 36415; 74018; 80048; 80051; 80053; 81001; 82009; 82150; 82803; 83036; 83605; 83690; 85025; 86704; 86706; 87340; 90935; 93005; 96361; 96374; 96375; 96376; 99284

== ENCOUNTER 2018-04-02 06:57 | Day surgery (SDC) | payer MEDICARE, OTHER ==
[2018-04-02 07:30] VITALS: TEMP 98.4
[2018-04-02] MEDS: LACTATED RINGERS 1,000 ML IV SCH ×2 (07:31→08:47)
[2018-04-02 07:32] LABS: Glucose,Whole Blood 107 mg/dL (75-99)
[2018-04-02] MEDS ORDERED: ONABOTULINUMTOXINA 100 UNIT VIAL MISCELLANE ONE ×2 (08:00→09:00)
[2018-04-02] MEDS ORDERED: PROPOFOL 10 MG/ML 20 ML VIAL IV ONE (08:48)
[2018-04-02] MEDS ORDERED: LIDOCAINE 1% INJ 10MG/ML (20 ML MDV) ONE (08:48)
[2018-04-02 09:14] VITALS: RESP 16
--- NOTE | 2018-04-02 09:22 | P.PCN ---
Date of Procedure: 04/02/18 Procedure(s) Performed: Procedure: Esophagogastroduodenoscopy and biopsy and Botox injection in the pylorus. Preoperative diagnosis: Insulin-dependent diabetes mellitus with intractable nausea and vomiting secondary to gastroparesis. Postoperative diagnosis: 1. Hiatal hernia with high-grade distal esophagitis secondary to reflux. 2. Antral gastritis. 3. Normal pyloric channel and duodenum. 4. Biopsies obtained from the esophagus and antrum. 5. A total of 100 units of Botox were injected in all 4 quadrants in the pylorus. Preparation and sedation: Was provided by anesthesia. Brief clinical history: The patient is a 32-year-old male with insulin- dependent diabetes mellitus diagnosed at age 19 maintained on the insulin on. The patient has developed end-stage renal disease and is on hemodialysis. He has been having chronic intractable symptoms of nausea, vomiting and chest pain secondary to gastroparesis. He is ALLERGIC to Reglan. This evaluation is to assess for other etiology and consider Botox injection as part of the treatment of his gastroparesis. Procedure: With the patient on his left lateral decubitus position and after informed consent and adequate sedation, I passed the Olympus-GIF H190 video upper endoscope through the cricopharyngeus down the esophagus. GE junction was around 38 cm from the incisors and there was a 2 cm sliding hiatal hernia. The distal esophagus showed broad erosions and superficial ulcerations covered with exudate consistent with acid reflux. More proximally, I saw some corrugations in the esophagus but no strictures or Alexandra's esophagus. The endoscope was then passed into the stomach which was insufflated with air and inspected in detail including the retroflex view in the cardia. There was some mottling and erythema in the antrum consistent with gastritis but no ulcers or erosions. Pyloric channel, duodenal bulb, post bulbar area and descending duodenum appeared healthy. There was no phytobezoar. I obtained biopsies from the antrum and proximal esophagus and I injected a total of 100 units of Botox the pylorus informed different quadrants. The patient tolerated the procedure well. Plan: I summarized the findings to the patient and his . Will continue intensive medical therapy and I will see him in follow-up in the office and make further adjustments and keep you updated on his progress.
[2018-04-02 09:24] LABS: Glucose,Whole Blood 101 mg/dL (75-99)
[2018-04-02 09:33] VITALS: BP 153/100; PULSE 87
== END 2018-04-02 10:03 | disposition home or self-care (01) ==
LOC: ORWHC2ENDO 06:57
DX: E10.43 Type 1 diabetes mellitus with diabetic autonomic (poly)neuropathy (principal); K31.84 Gastroparesis; K21.0 Gastro-esophageal reflux disease with esophagitis; K44.9 Diaphragmatic hernia without obstruction or gangrene; K29.50 Unspecified chronic gastritis without bleeding; I12.0 Hypertensive chronic kidney disease with stage 5 chronic kidney disease or end stage renal disease; E10.22 Type 1 diabetes mellitus with diabetic chronic kidney disease; N18.6 End stage renal disease; Z99.2 Dependence on renal dialysis; E78.5 Hyperlipidemia, unspecified; Z96.41 Presence of insulin pump (external) (internal); Z79.4 Long term (current) use of insulin; Z79.899 Other long term (current) drug therapy; Z88.8 Allergy status to other drugs, medicaments and biological substances
CPT/HCPCS: 88305; 43239; 43236; J2001; J0585; J2704; 43243

== ENCOUNTER 2018-04-15 07:46 | Observation (INO) | payer MEDICARE, OTHER ==
--- NOTE | 2018-04-15 08:29 | ED ---
General Adult HPI - General Chief complaint: Shortness of Breath Stated complaint: Sob/chest pain Time Seen by Provider: 04/15/18 07:57 Source: patient, RN notes reviewed, old records reviewed Mode of arrival: wheelchair Limitations: no limitations - History of Present Illness Initial comments: 32-year-old male history type 1 diabetes, end-stage renal disease on hemodialysis presents with worsening dyspnea. Patient does report significant weight gain and orthopnea. Reports lower extremity swelling. Last hemodialysis was on Friday which was 2 days ago, is scheduled for hemodialysis today. Patient states that he had a normal hemodialysis session on Friday but was told that he would likely need an extra treatment this week secondary to fluid retention. Patient reports some associated chest pain with his dyspnea. He also reports cough which is nonproductive. No fever chills. No URI symptoms. No abdominal pain. - Related Data Home Medications Medication Instructions Recorded Confirmed Omeprazole 20 mg PO DAILY 08/28/17 04/15/18 Cyanocobalamin (Vitamin B-12) 1,000 mcg PO DAILY 11/28/17 04/15/18 [Vitamin B-12] Multivitamin [Multivitamins Adult 1 tab PO DAILY 11/28/17 04/15/18 Gummies] Insulin Aspart (For Pump) [NovoLOG 0.01 unit SQ-PUMP CONTINUOUS 03/20/18 (For Pump)] Potassium Chloride ER [K-Dur 10] 10 meq PO DAILY 03/20/18 04/15/18 Previous Rx's Medication Instructions Recorded Furosemide [Lasix] 80 mg PO BID@0900,1600 #60 tab 12/08/17 amLODIPine [Norvasc] 5 mg PO BID #60 tab 12/08/17 Ondansetron Odt [Zofran Odt] 4 mg PO Q8HR PRN #20 tab 03/18/18 Sucralfate [Carafate] 1 gm PO ACHS #20 tablet 03/18/18 Allergies Allergy/AdvReac Type Severity Reaction Status Date / Time metoclopramide [From Reglan] Allergy ITCHY Verified 04/15/18 08:20 FEELING " Review of Systems ROS Statement: Those systems with pertinent positive or pertinent negative responses have been documented in the HPI. ROS Other: All systems not noted in ROS Statement are negative. Past Medical History Past Medical History: Diabetes Mellitus, Eye Disorder, GERD/Reflux, Hyperlipidemia, Hypertension Additional Past Medical History / Comment(s): IDDM type I,insulin pump DKA, RENAL DISEASE- stage v- hemodialysis m-w- ., neuropathy anemia- bilateral cataracts, retinal bleeds and since has had increased difficulty with vision- History of Any Multi-Drug Resistant Organisms: None Reported Past Surgical History: Hernia Repair Additional Past Surgical History / Comment(s): 04/2017 bilateral laser eye surgery for retinal bleeds unsuccessful, colonoscopy, dialysis cath placed rt upper chest on 12-03-17, upper scope- mar 2018 Past Anesthesia/Blood Transfusion Reactions: Postoperative Nausea & Vomiting ( PONV) Additional Past Anesthesia/Blood Transfusion Reaction / Comment(s): NAUSEA Past Psychological History: No Psychological Hx Reported Smoking Status: Light tobacco smoker Past Alcohol Use History: None Reported Past Drug Use History: None Reported - Past Family History Father Family Medical History: No Reported History Additional Family Medical History / Comment(s): Father is healthy Mother Family Medical History: No Reported History Additional Family Medical History / Comment(s): Mother is healthy. General Exam Limitations: no limitations General appearance: alert, in no apparent distress Head exam: Present: atraumatic, normocephalic Eye exam: Present: normal appearance, PERRL ENT exam: Present: normal exam Neck exam: Present: normal inspection Respiratory exam: Present: respiratory distress, rales Cardiovascular Exam: Present: normal rhythm, tachycardia GI/Abdominal exam: Present: soft. Absent: distended, tenderness, guarding Extremities exam: Present: normal capillary refill, pedal edema Neurological exam: Present: alert, oriented X3, CN II-XII intact. Absent: motor sensory deficit Psychiatric exam: Present: normal affect, normal mood Skin exam: Present: warm, dry, intact. Absent: cyanosis, diaphoretic Course Vital Signs 04/15/18 07:49 Temperature 98.8 F Pulse Rate 108 H Respiratory 20 Rate Blood Pressure 162/94 O2 Sat by Pulse 94 L Oximetry EKG Findings - EKG Comments: EKG Findings:: EKG: Sinus tachycardia, rate of 106, GA interval 144, QRS duration 68, QTC 435, no ST segment changes Medical Decision Making - Medical Decision Making 32-year-old male currently on hemodialysis presents with fluid overload, dyspnea , cough. Patient clinically is edematous, bilateral rales on lung auscultation. He is hypoxic without supplemental oxygen in the mid 80s. Chest x-ray shows concern for pulmonary edema and fluid overload, there is questionable left lower lobe infiltrate, he is covered with 1 dose of IV antibiotics although I suspect this is likely fluid rather than focal pneumonia. Patient has normal white blood cell count, hemoglobin 7.5 which is down trending out of his patient does have anemia and denies any bleeding, no melena, no rectal bleeding. Potassium normal 4.1, troponin negative, BNP significantly elevated at 28,000. Patient will be admitted for IV diuresis, nephrology evaluation. Case discussed with admitting physician and occupational therapy aides teacher Dr. Peck. - Lab Data Result diagrams: 04/15/18 08:19 04/15/18 08:19 Lab Results 04/15/18 04/15/18 04/15/18 Range/Units 08:19 08:19 08:19 WBC 6.1 (3.8-10.6) k/uL RBC 2.53 L (4.30-5.90) m/uL Hgb 7.5 L D (13.0-17.5) gm/dL Hct 22.4 L (39.0-53.0) % MCV 88.3 (80.0-100.0) fL MCH 29.7 (25.0-35.0) pg MCHC 33.6 (31.0-37.0) g/dL RDW 16.4 H (11.5-15.5) % Plt Count 136 L (150-450) k/uL Neutrophils % 70 % Lymphocytes % 17 % Monocytes % 7 % Eosinophils % 4 % Basophils % 1 % Neutrophils # 4.2 (1.3-7.7) k/uL Lymphocytes # 1.0 (1.0-4.8) k/uL Monocytes # 0.4 (0-1.0) k/uL Eosinophils # 0.3 (0-0.7) k/uL Basophils # 0.0 (0-0.2) k/uL Anisocytosis Slight PT (9.0-12.0) sec INR (<1.2) APTT (22.0-30.0) sec Sodium 137 (137-145) mmol/L Potassium 4.1 (3.5-5.1) mmol/L Chloride 104 (98-107) mmol/L Carbon Dioxide 29 (22-30) mmol/L Anion Gap 4 mmol/L BUN 38 H (9-20) mg/dL Creatinine 4.87 H (0.66-1.25) mg/dL Est GFR (CKD-EPI)AfAm 17 (>60 ml/min/1.73 sqM) Est GFR (CKD-EPI)NonAf 15 (>60 ml/min/1.73 sqM) Glucose 137 H (74-99) mg/dL Calcium 8.4 (8.4-10.2) mg/dL Magnesium 2.0 (1.6-2.3) mg/dL Total Bilirubin 0.4 (0.2-1.3) mg/dL AST 18 (17-59) U/L ALT 33 (21-72) U/L Alkaline Phosphatase 85 (38-126) U/L Troponin I (0.000-0.034) ng/mL NT-Pro-B Natriuret Pep 20655 pg/mL Total Protein 4.8 L (6.3-8.2) g/dL Albumin 2.4 L (3.5-5.0) g/dL Influenza Type A RNA (Not Detectd) Influenza Type B (PCR) (Not Detectd) 04/15/18 04/15/18 04/15/18 Range/Units 08:19 08:19 08:34 WBC (3.8-10.6) k/uL RBC (4.30-5.90) m/uL Hgb (13.0-17.5) gm/dL Hct (39.0-53.0) % MCV (80.0-100.0) fL MCH (25.0-35.0) pg MCHC (31.0-37.0) g/dL RDW (11.5-15.5) % Plt Count (150-450) k/uL Neutrophils % % Lymphocytes % % Monocytes % % Eosinophils % % Basophils % % Neutrophils # (1.3-7.7) k/uL Lymphocytes # (1.0-4.8) k/uL Monocytes # (0-1.0) k/uL Eosinophils # (0-0.7) k/uL Basophils # (0-0.2) k/uL Anisocytosis PT 9.3 (9.0-12.0) sec INR 0.8 (<1.2) APTT 23.1 (22.0-30.0) sec Sodium (137-145) mmol/L Potassium (3.5-5.1) mmol/L Chloride (98-107) mmol/L Carbon Dioxide (22-30) mmol/L Anion Gap mmol/L BUN (9-20) mg/dL Creatinine (0.66-1.25) mg/dL Est GFR (CKD-EPI)AfAm (>60 ml/min/1.73 sqM) Est GFR (CKD-EPI)NonAf (>60 ml/min/1.73 sqM) Glucose (74-99) mg/dL Calcium (8.4-10.2) mg/dL Magnesium (1.6-2.3) mg/dL Total Bilirubin (0.2-1.3) mg/dL AST (17-59) U/L ALT (21-72) U/L Alkaline Phosphatase (38-126) U/L Troponin I <0.012 (0.000-0.034) ng/mL NT-Pro-B Natriuret Pep pg/mL Total Protein (6.3-8.2) g/dL Albumin (3.5-5.0) g/dL Influenza Type A RNA Not Detected (Not Detectd) Influenza Type B (PCR) Not Detected (Not Detectd) Critical Care Time Critical Care Time: Yes Total Critical Care Time: 35 Disposition Clinical Impression: Renal failure, Fluid overload Disposition: ADMITTED IP TO THIS [facility] Condition: Stable Is patient prescribed a controlled substance at d/c from ED?: No Referrals: Sahra Hurtado MD [Primary Care Provider] - 1-2 days Decision to Admit Reason: Admit from EC Decision Date: 04/15/18 Decision Time: 09:32
[2018-04-15 08:44] LABS: INR 0.8 (<1.2); Partial Thromboplastin Time 23.1 sec (22.0-30.0); Prothrombin Time 9.3 sec (9.0-12.0)
[2018-04-15 08:45] LABS: Anisocytosis Slight; Basophils % (A) 1 %; Eosinophils # (A) 0.3 k/uL (0-0.7); Eosinophils % (A) 4 %; HCT 22.4 % (39.0-53.0); Lymphocytes % (A) 17 %; MCH 29.7 pg (25.0-35.0); MCHC 33.6 g/dL (31.0-37.0); MCV 88.3 fL (80.0-100.0); Mean Platelet Volume 6.9; Monocytes # (A) 0.4 k/uL (0-1.0); Monocytes % (A) 7 %; Neutrophils # (A) 4.2 k/uL (1.3-7.7); Neutrophils % (A) 70 %; Platelet Count 136 k/uL (150-450); RBC 2.53 m/uL (4.30-5.90); RDW 16.4 % (11.5-15.5); WBC 6.1 k/uL (3.8-10.6)
[2018-04-15 08:48] LABS: Albumin 2.4 g/dL (3.5-5.0); Calcium 8.4 mg/dL (8.4-10.2); Potassium 4.1 mmol/L (3.5-5.1); Total Bilirubin 0.4 mg/dL (0.2-1.3); Total Protein 4.8 g/dL (6.3-8.2)
--- NOTE | 2018-04-15 08:48 | XR ---
EXAMINATION TYPE: XR chest 2V DATE OF EXAM: 04/15/2018 COMPARISON: Chest x-ray December 03, 2017 HISTORY: Increased shortness of breath. TECHNIQUE: Frontal and lateral views of the chest are obtained. FINDINGS: There is stable right internal jugular dual-lumen dialysis catheter terminating in right a trium. There is new patchy right basilar opacity. There is redemonstration of left basilar opacity. L eft basilar opacity is improved. There is improved visualization of left heart border on current stud y . The cardiac silhouette size is upper limits of normal. New mild central vascular congestion and i nterstitial edema felt present as there are new Allyn B lines in the periphery seen. The osseous st ructures are intact. IMPRESSION: Small left pleural effusion with associated left basilar atelectasis and/or infiltrate, improved from prior. New patchy right basilar atelectasis and/or infiltrate. New mild central vascula r congestion and interstitial edema noted suggesting fluid overload state.
[2018-04-15 08:52] LABS: HGB 7.5 gm/dL (13.0-17.5)
[2018-04-15] MEDS ORDERED: LEVOFLOXACIN 500MG-D5W PMX 500 MG in DEXTROSE/WATER 1 100ML.BAG IVPB STA (08:59)
[2018-04-15] MEDS ORDERED: NALOXONE 0.4 MG/ML 1 ML VIAL IV PRN (09:28)
[2018-04-15 10:25] VITALS: BMI 21.9
[2018-04-15] MEDS ORDERED: PNEUMOCOCCAL VACC-PNEUMOVAX 23 25 MCG/0.5 ML VIAL IM ONE (10:28)
[2018-04-15 12:09] LABS: Glucose,Whole Blood 207 mg/dL (75-99)
[2018-04-15] MEDS ORDERED: ONDANSETRON ODT 4 MG TAB PO PRN (13:51)
--- NOTE | 2018-04-15 13:56 | P.HPIM ---
History of Present Illness 2-year-old pleasant gentleman came in with compensative from [facility] found to have significant pulmonary edema and some mild left-sided pleural effusion and atelectasis patient denied any fever chills denied any significant cough patient denied any body aches. Patient has 5 pound weight gain, does have orthopnea and denied any proximal nocturnal dyspnea patient did not miss any of his hemodialysis sessions patient is supposed to get hemodialysis today plan was to do hemodialysis today and tomorrow and probably discharge tomorrow. Nephrology was consulted. Patient doesn't have any evidence of pneumonia at this time. Patient denied using any additional salt. Review of Systems REVIEW OF SYSTEMS: CONSTITUTIONAL: No fever, no malaise, no fatigue. HEENT: No recent visual problems or hearing problems. Denied any sore throat. CARDIOVASCULAR: No chest pain, orthopnea, PND, no palpitations, no syncope. PULMONARY: no hemoptysis. GASTROINTESTINAL: No diarrhea, no nausea, no vomiting, no abdominal pain. NEUROLOGICAL: No headaches, no weakness, no numbness. HEMATOLOGICAL: Denies any bleeding or petechiae. GENITOURINARY: Denies any burning micturition, frequency, or urgency. MUSCULOSKELETAL/RHEUMATOLOGICAL: Denies any joint pain, swelling, or any muscle pain. ENDOCRINE: Denies any polyuria or polydipsia. The rest of the 14-point review of systems is negative. Past Medical History Past Medical History: Heart Failure, Diabetes Mellitus, Eye Disorder, GERD/ Reflux, Hyperlipidemia, Hypertension, Renal Disease Additional Past Medical History / Comment(s): IDDM type I with insulin pump, past DKA, neuropathy bilateral feet, diabetic nephropathy/ESRD with hemodialysis M/W/F last hemo on 04/13/18-pt planning to establish at [facility] for possible kidney transplant, diabetic retinopathy/bleeds bilaterally-pt has very decreased vision and some bilateral eye pain, gastroparesis with botox treatment , esophagitis, hiatal hernia, CHF once, in the past he was on a statin but since taken off. History of Any Multi-Drug Resistant Organisms: None Reported Past Surgical History: Hernia Repair Additional Past Surgical History / Comment(s): 04/2017 bilateral laser eye surgery for retinal bleeds unsuccessful, eye injections, EGD, colonoscopy, dialysis cath placed rt upper chest on 12-03-17 L inguinal hernia repair Past Anesthesia/Blood Transfusion Reactions: Postoperative Nausea & Vomiting ( PONV) Additional Past Anesthesia/Blood Transfusion Reaction / Comment(s): Pt has received multiple transfusions. Smoking Status: Current every day smoker - Past Family History Father Family Medical History: No Reported History Additional Family Medical History / Comment(s): Father is healthy Mother Family Medical History: No Reported History Additional Family Medical History / Comment(s): Mother is healthy. Medications and Allergies Home Medications Medication Instructions Recorded Confirmed Type Omeprazole 20 mg PO DAILY 08/28/17 04/15/18 History Cyanocobalamin (Vitamin B-12) 1,000 mcg PO DAILY 11/28/17 04/15/18 History [Vitamin B-12] Multivitamin [Multivitamins Adult 1 tab PO DAILY 11/28/17 04/15/18 History Gummies] Furosemide [Lasix] 80 mg PO BID@0900,1600 #60 tab 12/08/17 04/15/18 Rx amLODIPine [Norvasc] 5 mg PO BID #60 tab 12/08/17 04/15/18 Rx Ondansetron Odt [Zofran Odt] 4 mg PO Q8HR PRN #20 tab 03/18/18 04/15/18 Rx Sucralfate [Carafate] 1 gm PO ACHS #20 tablet 03/18/18 04/15/18 Rx Insulin Aspart (For Pump) [NovoLOG 0.01 unit SQ-PUMP CONTINUOUS 03/20/18 History (For Pump)] Potassium Chloride ER [K-Dur 10] 10 meq PO DAILY 03/20/18 04/15/18 History Allergies Allergy/AdvReac Type Severity Reaction Status Date / Time metoclopramide [From Reglan] Allergy ITCHY Verified 04/15/18 08:20 FEELING " Physical Exam Vitals: Vital Signs Temp Pulse Pulse Resp BP BP Pulse Ox 04/15/18 12:00 97.9 F 79 16 180/104 97 04/15/18 09:39 93 17 168/112 95 04/15/18 07:49 98.8 F 108 H 20 162/94 94 L Intake and Output 04/14/18 04/15/18 04/15/18 22:59 06:59 14:59 Other: Weight 71.214 kg PHYSICAL EXAMINATION: GENERAL: The patient is alert and oriented x3, not in any acute distress. Well developed, well nourished. HEENT: Pupils are round and equally reacting to light. EOMI. No scleral icterus. No conjunctival pallor. Normocephalic, atraumatic. No pharyngeal erythema. No thyromegaly. CARDIOVASCULAR: S1 and S2 present. No murmurs, rubs, or gallops. PULMONARY: Mild bibasilar crackles ABDOMEN: Soft, nontender, nondistended, normoactive bowel sounds. No palpable organomegaly. MUSCULOSKELETAL: No joint swelling or deformity. EXTREMITIES: No cyanosis, clubbing, or pedal edema. NEUROLOGICAL: Gross neurological examination did not reveal any focal deficits. SKIN: No rashes. Results CBC & Chem 7: 04/15/18 08:19 04/15/18 08:19 Labs: Abnormal Lab Results - Last 24 Hours (Table) 04/15/18 04/15/18 04/15/18 Range/Units 08:19 08:19 12:05 RBC 2.53 L (4.30-5.90) m/uL Hgb 7.5 L D (13.0-17.5) gm/dL Hct 22.4 L (39.0-53.0) % RDW 16.4 H (11.5-15.5) % Plt Count 136 L (150-450) k/uL BUN 38 H (9-20) mg/dL Creatinine 4.87 H (0.66-1.25) mg/dL Glucose 137 H (74-99) mg/dL POC Glucose (mg/dL) 207 H (75-99) mg/dL Total Protein 4.8 L (6.3-8.2) g/dL Albumin 2.4 L (3.5-5.0) g/dL Thrombosis Risk Factor Assmnt - Choose All That Apply Any of the Below Risk Factors Present?: Yes Each Factor Represents 1 point: Swollen legs (current) Other Risk Factors: No Other congenital or acquired thrombophilia - If yes, enter type in comment: No Thrombosis Risk Factor Assessment Total Risk Factor Score: 1 Thrombosis Risk Factor Assessment Level: Low Risk Assessment and Plan Plan: -Volume overload: Secondary to end-stage renal disease and pulmonary edema secondary to end-stage renal disease patient still urinates some will be resumed on Lasix patient will undergo hemodialysis today and probably tomorrow depending on nephrology's recommendations and possibility of discharge tomorrow that is no evidence of pneumonia at this time -Hypertension -Type 2 diabetes mellitus for which patient is on insulin pump which will be continued -Diabetic nephropathy neuropathy and retinopathy -Gastroesophageal reflux disease -Hyperlipidemia For above-mentioned medical problems patient will be resumed on home medications -DVT prophylaxis early ambulation
[2018-04-15 16:45] LABS: Glucose,Whole Blood 170 mg/dL (75-99)
[2018-04-15] MEDS: FUROSEMIDE 80 MG TAB PO SCH (17:35)
[2018-04-15] MEDS: SUCRALFATE 1 GM TAB PO SCH ×2 (17:35→21:47)
[2018-04-15] MEDS: amLODIPine 5 MG TAB PO SCH (17:35)
[2018-04-15] MEDS: Insulin Aspart (For Pump) 100 UNIT/ML VIAL SQ-PUMP SCH (17:38)
[2018-04-15] MEDS ORDERED: INSULIN ASPART (NovoLOG) 100 UNIT/ML VIAL SQ PRN (18:14)
[2018-04-15] MEDS ORDERED: INSPUCOR MISCELLANE PRN (18:14)
[2018-04-15] MEDS ORDERED: INSULIN PUMP BASAL RATES 1 EACH MISC MISCELLANE PRN (18:14)
[2018-04-15 20:36] LABS: Glucose,Whole Blood 292 mg/dL (75-99)
[2018-04-15] MEDS: INSULIN PUMP MEAL BOLUS 1 UNIT MISC MISCELLANE SCH (21:48)
--- NOTE | 2018-04-16 00:23 | CONS ---
CONSULTATION REASON FOR CONSULT: End-stage renal disease. HISTORY OF PRESENT ILLNESS: The patient is a 32-year-old male with end-stage renal disease on hemodialysis on a Friday, Friday, Friday schedule. He was admitted to the hospital with complaints of increased shortness of breath and fluid overload. The patient denied any chest pain. He denied missing any treatments. He was scheduled to have an extra treatment for fluid overload as outpatient. The patient has had large gains as outpatient. He does have a fair amount of urine output as well. The patient is currently being dialyzed. We will dialyze him again tomorrow and then if he is still here he will have his third treatment on Friday, which is his usual dialysis day. There is no history of fever, abdominal pain, nausea, vomiting or diarrhea. PAST MEDICAL HISTORY: End-stage renal disease, type 1 diabetes, history of cardiomyopathy systolic, history of diabetic retinopathy, hyperlipidemia, anemia of chronic disease, CKD mineral bone disorder. PAST SURGICAL HISTORY: Hemodialysis catheter placement, eye surgeries, EGD, colonoscopy, inguinal hernia repair. SOCIAL HISTORY: Patient is a daily smoker. No history of drug abuse. MEDICATIONS: Prior to admission include omeprazole, vitamin B12, Lasix, Norvasc, Zofran, Carafate, potassium. ALLERGIES: Reglan, which causes itching. PHYSICAL EXAMINATION: Patient is currently comfortable, awake he is alert and oriented x3, not in any acute distress. Blood pressure this morning was 168/112, heart rate 88 per minute, patient is afebrile. Examination of the heart S1, S2. Examination lungs bilateral crackles are heard mainly at the bases. Abdomen is soft, nontender. Examination lower extremities shows edema 2+ bilaterally. SYSTEMS PROGRAMMER exam is grossly intact. LAB: Hemoglobin of 7.5, sodium 137, potassium 4.1, BUN 38, serum creatinine 4.87, albumin 2.4. ASSESSMENT: 1. End-stage renal disease, on hemodialysis on a Friday, Friday, Friday schedule. Patient will be dialyzed today as well as in a.m. 2. Anemia with no active bleeding noted. It appears that the patient has had EGD on 04/02/2018, which showed high-grade distal esophagitis. There was no bleeding noted at that time. The patient also had a Botox injection in the pylorus. I will maintain him on the Aranesp and will monitor the CBC. 3. Hypertension, partly volume sensitive. Expect improvement with improved volume status. 4. Severe reflux esophagitis, status post EGD in March of 2018. No active bleeding was noted at that time. 5. Fluid overload. Patient is advised regarding need to restrict his fluid intake. We will dialyze him on a daily basis during his stay in the hospital and continue with the oral diuretics to help with the volume overload. 6. CKD mineral bone disorder. I do not see any phosphate binders on his home med list. I will check a serum phosphorus level. PLAN: Hemodialysis today as well as in a.m. We will dialyze the patient on a 3K bath secondary to his history of hypokalemia. Continue with oral Lasix. Maintain patient on Aranesp. Avoid packed RBC transfusion if possible secondary to patient being a transplant candidate. Check a phosphorus level as well. Thank you for this consultation. We will continue to follow the patient with you during his hospitalization. MMAUREAL / IJN: [id number] /
[2018-04-16 02:34] LABS: Glucose,Whole Blood 165 mg/dL (75-99)
[2018-04-16 06:30] LABS: Glucose,Whole Blood 51 mg/dL (75-99)
[2018-04-16] MEDS: INSULIN PUMP MEAL BOLUS 1 UNIT MISC MISCELLANE SCH ×4 (06:33→21:27)
[2018-04-16] MEDS: SUCRALFATE 1 GM TAB PO SCH ×4 (06:36→21:27)
[2018-04-16 06:48] LABS: Glucose,Whole Blood 56 mg/dL (75-99)
[2018-04-16 07:01] LABS: Glucose,Whole Blood 88 mg/dL (75-99)
[2018-04-16] MEDS ORDERED: PANTOPRAZOLE 40 MG TABLET PO SCH (07:30)
[2018-04-16] MEDS: amLODIPine 5 MG TAB PO SCH ×2 (08:20→21:27)
[2018-04-16] MEDS: FUROSEMIDE 80 MG TAB PO SCH ×2 (08:20→16:18)
[2018-04-16] MEDS ORDERED: POTASSIUM CHLORIDE ER 10 MEQ TAB.ER.PRT PO SCH (09:00)
[2018-04-16 11:18] LABS: Glucose,Whole Blood 148 mg/dL (75-99)
--- NOTE | 2018-04-16 14:22 | P.PN ---
Subjective Patient is seen in follow-up for end-stage renal disease. He is maintained on hemodialysis on a Friday schedule. He tolerated hemodialysis well yesterday with 4 L ultrafiltration. Edema has improved. He feels better overall. Scheduled for another treatment of hemodialysis today. He wants to go home. Vital signs are stable. General: The patient appeared well nourished and normally developed. HEENT: Head exam is unremarkable. Neck is without jugular venous distension. LUNGS: Lungs are clear to auscultation and percussion. Breath sounds decreased. HEART: Rate and Rhythm are regular. First and second heart sounds normal. No murmurs, rubs or gallops. ABDOMEN: Abdominal exam reveals normal bowel sounds. Non-tender and non- distended. No evidence of peritonitis. EXTREMITITES: Trace edema. Objective - Vital Signs Vital signs: Vital Signs Temp 98.3 F 04/16/18 12:00 Pulse 100 04/16/18 12:00 Resp 18 04/16/18 12:00 BP 154/102 04/16/18 12:00 Pulse Ox 100 04/16/18 12:00 Intake & Output 04/15/18 04/16/18 04/16/18 18:59 06:59 18:59 Intake Total 1500 0 Balance 1500 0 Weight 71.214 kg 66.6 kg Intake: Intake, IV Titration 100 Amount Levofloxacin 500Mg-D5w 100 Pmx 500 mg In Dextrose/ Water 1 100ml.bag @ 100 mls/hr IVPB ONCE STA Rx#: [id number] Oral 1400 0 Other: # Voids 2 1 - Labs CBC & Chem 7: 04/15/18 08:19 04/15/18 08:19 Labs: Abnormal Lab Results - Last 24 Hours (Table) 04/15/18 04/15/18 04/16/18 Range/Units 16:37 20:35 02:32 POC Glucose (mg/dL) 170 H 292 H 165 H (75-99) mg/dL 04/16/18 04/16/18 04/16/18 Range/Units 06:29 06:46 11:16 POC Glucose (mg/dL) 51 L 56 L 148 H (75-99) mg/dL Assessment and Plan Plan: Assessment: 1. End-stage renal disease maintained on hemodialysis on a Friday schedule. 2. Volume overload. Improving with ultrafiltration. 3. Anemia of chronic kidney disease. Recent EGD revealed esophagitis. 4. Hypertension with chronic kidney disease. Partially volume sensitive. Expect improvement postdialysis. 5. Insulin-dependent diabetes mellitus. Plan: Hemodialysis today with goal 3-4 L of nutrition. Another treatment tomorrow per his outpatient schedule. Phosphorus level at goal. Potential discharge after dialysis today.
--- NOTE | 2018-04-16 14:29 | P.DS ---
Providers Date of admission: 04/15/18 09:28 Attending physician: Anil Haji Consults: 04/15/18 09:28 Consult Physician Routine Consulting Provider: Claire Peck Consult Reason/Comments: ESRD, fluid overload with hypoxia Do you want consulting provider notified?: Already Contacted Primary care physician: Sahra Hurtado [facility] Course: 32-year-old pleasant gentleman came in with compensative from [facility] breath found to have significant pulmonary edema and some mild left-sided pleural effusion and atelectasis patient denied any fever chills denied any significant cough patient denied any body aches. Patient has 5 pound weight gain, does have orthopnea and denied any proximal nocturnal dyspnea patient did not miss any of his hemodialysis sessions patient is supposed to get hemodialysis today plan was to do hemodialysis today and tomorrow and probably discharge tomorrow. Nephrology was consulted. Patient doesn't have any evidence of pneumonia at this time. Patient denied using any additional salt. 04/16/2018 Patient underwent hemodialysis yesterday he still has some crackles. Patient will undergo hemodialysis today discussed with the nephrology. Patient will undergo as scheduled outpatient hemodialysis clinically patient looks better not short of breath at this time. Patient will be discharged after hemodialysis today. PHYSICAL EXAMINATION: GENERAL: The patient is alert and oriented x3, not in any acute distress. Well developed, well nourished. HEENT: Pupils are round and equally reacting to light. EOMI. No scleral icterus. No conjunctival pallor. Normocephalic, atraumatic. No pharyngeal erythema. No thyromegaly. CARDIOVASCULAR: S1 and S2 present. No murmurs, rubs, or gallops. PULMONARY: Mild bilateral crackles in posterior lung curran ABDOMEN: Soft, nontender, nondistended, normoactive bowel sounds. No palpable organomegaly. MUSCULOSKELETAL: No joint swelling or deformity. EXTREMITIES: No cyanosis, clubbing, or pedal edema. NEUROLOGICAL: Gross neurological examination did not reveal any focal deficits. SKIN: No rashes. Assessment and Plan Plan: -Volume overload: Had hematemesis yesterday will undergo pleurodesis today and tomorrow -Hypertension -Type 2 diabetes mellitus for which patient is on insulin pump which will be continued -Diabetic nephropathy neuropathy and retinopathy -Gastroesophageal reflux disease -Hyperlipidemia -Anemia of chronic kidney disease Patient Condition at Discharge: Stable Plan - Discharge Summary Discharge Rx Participant: No New Discharge Prescriptions: Continue Omeprazole 20 mg PO DAILY Multivitamin [Multivitamins Adult Gummies] 1 tab PO DAILY Cyanocobalamin (Vitamin B-12) [Vitamin B-12] 1,000 mcg PO DAILY amLODIPine [Norvasc] 5 mg PO BID #60 tab Furosemide [Lasix] 80 mg PO BID@0900,1600 #60 tab Ondansetron Odt [Zofran Odt] 4 mg PO Q8HR PRN #20 tab PRN Reason: Nausea Sucralfate [Carafate] 1 gm PO ACHS #20 tablet Potassium Chloride ER [K-Dur 10] 10 meq PO DAILY Insulin Aspart (For Pump) [NovoLOG (For Pump)] 0.01 unit SQ-PUMP CONTINUOUS Discharge Medication List Omeprazole 20 mg PO DAILY 08/28/17 [History] Cyanocobalamin (Vitamin B-12) [Vitamin B-12] 1,000 mcg PO DAILY 11/28/17 [History] Multivitamin [Multivitamins Adult Gummies] 1 tab PO DAILY 11/28/17 [History] Furosemide [Lasix] 80 mg PO BID@0900,1600 #60 tab 12/08/17 [Rx] amLODIPine [Norvasc] 5 mg PO BID #60 tab 12/08/17 [Rx] Ondansetron Odt [Zofran Odt] 4 mg PO Q8HR PRN #20 tab 03/18/18 [Rx] Sucralfate [Carafate] 1 gm PO ACHS #20 tablet 03/18/18 [Rx] Insulin Aspart (For Pump) [NovoLOG (For Pump)] 0.01 unit SQ-PUMP CONTINUOUS 03/20/18 [History] Potassium Chloride ER [K-Dur 10] 10 meq PO DAILY 03/20/18 [History] Follow up Appointment(s)/Referral(s): Sahra Hurtado MD [Primary Care Provider] - 1-2 days
[2018-04-16] MEDS: Insulin Aspart (For Pump) 100 UNIT/ML VIAL SQ-PUMP SCH (15:08)
[2018-04-16 16:21] LABS: Glucose,Whole Blood 291 mg/dL (75-99)
[2018-04-16 20:32] LABS: Glucose,Whole Blood 155 mg/dL (75-99)
[2018-04-16 21:14] VITALS: BP 177/111; PULSE 104; RESP 16; TEMP 98.6
--- NOTE | 2018-04-20 13:13 | CDI ---
Outpatient Documentation Clarification Form Date: 04-20-18 CDS/Internal Grinder Name: Meagan Hays Phone: If you have question, contact Ольга Marin [employer] at [phone] M-F 8:30 am to 6pm. Patient Name: Matt Hernandez Admit Date: 04-15-18 Discharge Date: 04-16-18 ATTENTION: The Clinical Documentation Specialists (CDI) and [facility] Coding Staff appreciate your assistance in clarifying documentation. Please respond to the clarification below the line at the bottom and electronically sign. The CDI & [facility] Coding staff will review the response and follow-up if needed. Please note: Queries are made part of the Legal Health Record. If you have any questions, please contact the author of this message via ITS or call the [employer]. Dr. Haji, Please specify the patient's type of Diabetes. Type 1 Type 2 unspecified Thank you for your time, Meagan Hays Type 1 MTDD
== END 2018-04-16 21:51 | disposition home or self-care (01) ==
LOC: EC 07:46 → 3SCARD 09:28
PROVIDERS: ADMIT Hospitalist; ATTEND Hospitalist
DX: E10.22 Type 1 diabetes mellitus with diabetic chronic kidney disease (principal); K92.0 Hematemesis; I13.2 Hypertensive heart and chronic kidney disease with heart failure and with stage 5 chronic kidney disease, or end stage renal disease; N18.6 End stage renal disease; I50.9 Heart failure, unspecified; E10.43 Type 1 diabetes mellitus with diabetic autonomic (poly)neuropathy; E10.319 Type 1 diabetes mellitus with unspecified diabetic retinopathy without macular edema; E10.40 Type 1 diabetes mellitus with diabetic neuropathy, unspecified; E10.21 Type 1 diabetes mellitus with diabetic nephropathy; K31.84 Gastroparesis; M79.89 Other specified soft tissue disorders; E78.5 Hyperlipidemia, unspecified; D63.1 Anemia in chronic kidney disease; J98.11 Atelectasis; R09.02 Hypoxemia; I42.9 Cardiomyopathy, unspecified; K21.0 Gastro-esophageal reflux disease with esophagitis; M89.9 Disorder of bone, unspecified; H54.7 Unspecified visual loss; Z99.2 Dependence on renal dialysis; F17.200 Nicotine dependence, unspecified, uncomplicated; Z76.82 Awaiting organ transplant status; Z96.41 Presence of insulin pump (external) (internal); Z79.4 Long term (current) use of insulin; Z79.899 Other long term (current) drug therapy; Z88.8 Allergy status to other drugs, medicaments and biological substances
CPT/HCPCS: 96365; 99291; 36415; 93005; 83880; 80053; 83735; 84100; 84484; 85025; 85610; 85730; 87502; 71046; G0257; G0378 ×2; J1956; 90935

== ENCOUNTER 2018-05-18 | Observation (INO) | payer MEDICARE, OTHER | END 2018-05-19 17:18 | disposition home or self-care (01) | PROVIDERS: ADMIT Hospitalist | DX: I13.2 Hypertensive heart and chronic kidney disease with heart failure and with stage 5 chronic kidney disease, or end stage renal disease (principal); N18.6 End stage renal disease; Z99.2 Dependence on renal dialysis; D63.1 Anemia in chronic kidney disease; E10.22 Type 1 diabetes mellitus with diabetic chronic kidney disease; I50.9 Heart failure, unspecified; E10.319 Type 1 diabetes mellitus with unspecified diabetic retinopathy without macular edema; E10.42 Type 1 diabetes mellitus with diabetic polyneuropathy; E10.43 Type 1 diabetes mellitus with diabetic autonomic (poly)neuropathy; E78.5 Hyperlipidemia, unspecified; F17.200 Nicotine dependence, unspecified, uncomplicated; H54.7 Unspecified visual loss; I16.0 Hypertensive urgency; K21.9 Gastro-esophageal reflux disease without esophagitis; K31.84 Gastroparesis; M89.9 Disorder of bone, unspecified; Z79.4 Long term (current) use of insulin; Z79.899 Other long term (current) drug therapy; Z96.41 Presence of insulin pump (external) (internal) ==

== ENCOUNTER 2018-05-26 21:48 | Observation (INO) | payer MEDICARE, OTHER ==
[2018-05-26] MEDS ORDERED: MORPHINE SULFATE 4 MG/ML SYRINGE IV STA (22:27)
[2018-05-26] MEDS ORDERED: ONDANSETRON 4 MG/2 ML VIAL IVP STA ×2 (22:27→23:43)
[2018-05-26 22:53] LABS: Anisocytosis Slight; Basophils # (A) 0.1 k/uL (0-0.2); Basophils % (A) 1 %; Eosinophils # (A) 0.2 k/uL (0-0.7); Eosinophils % (A) 2 %; HCT 35.7 % (39.0-53.0); HGB 11.5 gm/dL (13.0-17.5); Lymphocytes # (A) 1.1 k/uL (1.0-4.8); Lymphocytes % (A) 14 %; MCH 28.9 pg (25.0-35.0); MCHC 32.4 g/dL (31.0-37.0); MCV 89.3 fL (80.0-100.0); Mean Platelet Volume 7.3; Monocytes # (A) 0.4 k/uL (0-1.0); Monocytes % (A) 5 %; Neutrophils % (A) 78 %; Poikilocytosis Slight; RBC 3.99 m/uL (4.30-5.90); WBC 7.7 k/uL (3.8-10.6)
[2018-05-26 23:04] LABS: ALT 24 U/L (21-72); AST 22 U/L (17-59); African American GFR (CKD) 19 (>60 ml/min/1.73 sqM); Albumin 3.9 g/dL (3.5-5.0); Alkaline Phosphatase 107 U/L (38-126); Amylase 43 U/L (30-110); Anion Gap 14 mmol/L; Blood Urea Nitrogen 19 mg/dL (9-20); Calcium 9.2 mg/dL (8.4-10.2); Carbon Dioxide 28 mmol/L (22-30); Chloride 94 mmol/L (98-107); Glucose 180 mg/dL (74-99); Lipase 29 U/L (23-300); Potassium 5.1 mmol/L (3.5-5.1); Sodium 136 mmol/L (137-145); Total Protein 6.6 g/dL (6.3-8.2)
--- NOTE | 2018-05-26 23:04 | XR ---
EXAM: XR Chest, 1 View CLINICAL HISTORY: ITS.REASON XR Reason: Pain TECHNIQUE: Frontal view of the chest. COMPARISON: Chest radiograph on 05/18/2018 FINDINGS: Hardware: Right dual-lumen central venous catheter terminates near the junction of the SVC and right atrium. Lungs/pleura: Persistent trace left pleural effusion and atelectasis. No focal consolidation. Decreased pulmonary edema. Heart/mediastinum: Stable mild enlargement of the cardiac silhouette. Soft tissues: Unremarkable. Bones: No acute fracture. Upper abdomen: Normal. IMPRESSION: Decreased but persistent trace left pleural effusion with atelectasis. No focal consolidation.
[2018-05-26 23:05] LABS: Platelet Count 191 k/uL (150-450)
[2018-05-26] MEDS ORDERED: INSULIN REGULAR 100 UNIT/ML VIAL SQ STA (23:23)
--- NOTE | 2018-05-26 23:27 | ED ---
Nausea/Vomiting/Diarrhea HPI - General Chief complaint: Nausea/Vomiting/Diarrhea Stated complaint: Vomiting Time Seen by Provider: 05/26/18 21:59 Source: patient Mode of arrival: wheelchair Limitations: no limitations - History of Present Illness Initial comments: This patient is a 32-year-old man with renal failure on hemodialysis, and who gives history of previous gastroparesis. He presents complaining of having 2 days of continuous nausea and vomiting. The patient in fact due to the nausea and vomiting had cancel his usual Friday dialysis. He stated that he did have a dialysis session on Friday but he continues to have nausea and vomiting. He has not noted any blood or coffee-ground type emesis. He has had a little bit of epigastric burning occasionally going to the substernal area after he vomits. Patient has not had change in bowel movements. In the past he has been seen by Dr. Bacon, for this condition. MD complaint: nausea, vomiting Onset/Timin -: days(s) Description of Vomiting: food contents, watery Associated Abdominal Pain: Yes Location: epigastric Radiation: none Severity: moderate Quality: other (Burning) Consistency: constant Improves with: none Worsens with: none Associated Symptoms: nausea/vomiting - Related Data Home Medications Medication Instructions Recorded Confirmed Omeprazole 20 mg PO DAILY 08/28/17 05/26/18 Multivitamin [Multivitamins Adult 1 tab PO DAILY 11/28/17 05/26/18 Gummies] Insulin Aspart (For Pump) [NovoLOG 0.01 unit SQ-PUMP CONTINUOUS 03/20/18 05/26/18 (For Pump)] Potassium Chloride ER [K-Dur 10] 10 meq PO DAILY 03/20/18 05/26/18 Aspirin EC [Ecotrin Low Dose] 81 mg PO HS 05/18/18 05/26/18 Cetirizine HCl [Zyrtec] 10 mg PO HS 05/18/18 05/26/18 Losartan [Cozaar] 50 mg PO DAILY 05/26/18 05/26/18 amLODIPine [Norvasc] 10 mg PO DAILY 05/26/18 05/26/18 Previous Rx's Medication Instructions Recorded Furosemide [Lasix] 80 mg PO BID@0900,1600 #60 tab 12/08/17 Allergies Allergy/AdvReac Type Severity Reaction Status Date / Time metoclopramide [From Reglan] AdvReac ITCHY Verified 05/26/18 22:06 FEELING " Review of Systems ROS Statement: Those systems with pertinent positive or pertinent negative responses have been documented in the HPI. ROS Other: All systems not noted in ROS Statement are negative. Constitutional: Denies: fever, chills Respiratory: Denies: cough, dyspnea Cardiovascular: Denies: chest pain, palpitations, edema, syncope Gastrointestinal: Reports: abdominal pain, nausea, vomiting. Denies: diarrhea, hematemesis, melena, hematochezia Musculoskeletal: Denies: back pain Skin: Denies: rash Neurological: Denies: headache, weakness, numbness Past Medical History Past Medical History: Heart Failure, Diabetes Mellitus, Eye Disorder, GERD/Reflux, Hyperlipidemia, Hypertension, Renal Disease Additional Past Medical History / Comment(s): IDDM type I with insulin pump, past DKA, neuropathy bilateral feet, diabetic nephropathy/ESRD with hemodialysis M/W/F last hemo on 04/13/18-[facility], diabetic retinopathy/bleeds bilaterally-pt has very decreased vision and some bilateral eye pain, gastroparesis with botox treatment, esophagitis, hiatal hernia, CHF once, in the past he was on a statin but since taken off. History of Any Multi-Drug Resistant Organisms: None Reported Past Surgical History: Hernia Repair Additional Past Surgical History / Comment(s): 04/2017 bilateral laser eye surgery for retinal bleeds unsuccessful, eye injections, EGD, colonoscopy, dialysis cath placed rt upper chest on 12-03-17, L inguinal hernia repair Past Anesthesia/Blood Transfusion Reactions: Postoperative Nausea & Vomiting (PONV) Additional Past Anesthesia/Blood Transfusion Reaction / Comment(s): Pt has received multiple transfusions. Past Psychological History: No Psychological Hx Reported Smoking Status: Current every day smoker Past Alcohol Use History: None Reported Past Drug Use History: None Reported - Past Family History Father Family Medical History: No Reported History Additional Family Medical History / Comment(s): Father is healthy Mother Family Medical History: No Reported History Additional Family Medical History / Comment(s): Mother is healthy. General Exam Limitations: no limitations General appearance: alert, in no apparent distress Head exam: Present: atraumatic, normocephalic Eye exam: Present: normal appearance. Absent: scleral icterus, conjunctival injection ENT exam: Present: normal oropharynx Respiratory exam: Present: normal lung sounds bilaterally. Absent: respiratory distress, wheezes, rales, rhonchi, stridor Cardiovascular Exam: Present: regular rate, normal rhythm, normal heart sounds, other (Temporary Dialysis catheter right upper chest wall). Absent: systolic murmur, diastolic murmur, rubs, gallop GI/Abdominal exam: Present: soft, hypoactive bowel sounds. Absent: tenderness, guarding, rebound, rigid, mass Extremities exam: Present: normal inspection, normal capillary refill. Absent: pedal edema, calf tenderness Back exam: Present: normal inspection. Absent: CVA tenderness (R), CVA tenderness (L) Neurological exam: Present: alert Skin exam: Present: warm, dry, intact, normal color. Absent: rash Course Vital Signs 05/26/18 05/27/18 21:50 02:59 Temperature 98.0 F Pulse Rate 104 H 101 H Respiratory 20 18 Rate Blood Pressure 179/124 188/120 O2 Sat by Pulse 99 96 Oximetry Medical Decision Making - Lab Data Result diagrams: 05/26/18 22:34 05/26/18 22:34 Lab Results 05/26/18 05/26/18 05/26/18 Range/Units 22:34 22:34 22:34 WBC 7.7 (3.8-10.6) k/uL RBC 3.99 L (4.30-5.90) m/uL Hgb 11.5 L (13.0-17.5) gm/dL Hct 35.7 L (39.0-53.0) % MCV 89.3 (80.0-100.0) fL MCH 28.9 (25.0-35.0) pg MCHC 32.4 (31.0-37.0) g/dL RDW 18.0 H (11.5-15.5) % Plt Count 191 D (150-450) k/uL Neutrophils % 78 % Lymphocytes % 14 % Monocytes % 5 % Eosinophils % 2 % Basophils % 1 % Neutrophils # 6.0 (1.3-7.7) k/uL Lymphocytes # 1.1 (1.0-4.8) k/uL Monocytes # 0.4 (0-1.0) k/uL Eosinophils # 0.2 (0-0.7) k/uL Basophils # 0.1 (0-0.2) k/uL Poikilocytosis Slight Anisocytosis Slight Sodium 136 L (137-145) mmol/L Potassium 5.1 (3.5-5.1) mmol/L Chloride 94 L (98-107) mmol/L Carbon Dioxide 28 (22-30) mmol/L Anion Gap 14 mmol/L BUN 19 (9-20) mg/dL Creatinine 4.34 H (0.66-1.25) mg/dL Est GFR (CKD-EPI)AfAm 19 (>60 ml/min/1.73 sqM) Est GFR (CKD-EPI)NonAf 17 (>60 ml/min/1.73 sqM) Glucose 180 H (74-99) mg/dL POC Glucose (mg/dL) (75-99) mg/dL POC Glu Automotive Mechanical Engineer ID Plasma Lactic Acid Blaine 1.0 (0.7-2.0) mmol/L Calcium 9.2 (8.4-10.2) mg/dL Total Bilirubin 1.0 (0.2-1.3) mg/dL AST 22 (17-59) U/L ALT 24 (21-72) U/L Alkaline Phosphatase 107 (38-126) U/L Troponin I (0.000-0.034) ng/mL Total Protein 6.6 (6.3-8.2) g/dL Albumin 3.9 (3.5-5.0) g/dL Amylase 43 (30-110) U/L Lipase 29 (23-300) U/L Acetone, Qual Positive (Negative) 05/26/18 05/27/18 Range/Units 22:34 02:56 WBC (3.8-10.6) k/uL RBC (4.30-5.90) m/uL Hgb (13.0-17.5) gm/dL Hct (39.0-53.0) % MCV (80.0-100.0) fL MCH (25.0-35.0) pg MCHC (31.0-37.0) g/dL RDW (11.5-15.5) % Plt Count (150-450) k/uL Neutrophils % % Lymphocytes % % Monocytes % % Eosinophils % % Basophils % % Neutrophils # (1.3-7.7) k/uL Lymphocytes # (1.0-4.8) k/uL Monocytes # (0-1.0) k/uL Eosinophils # (0-0.7) k/uL Basophils # (0-0.2) k/uL Poikilocytosis Anisocytosis Sodium (137-145) mmol/L Potassium (3.5-5.1) mmol/L Chloride (98-107) mmol/L Carbon Dioxide (22-30) mmol/L Anion Gap mmol/L BUN (9-20) mg/dL Creatinine (0.66-1.25) mg/dL Est GFR (CKD-EPI)AfAm (>60 ml/min/1.73 sqM) Est GFR (CKD-EPI)NonAf (>60 ml/min/1.73 sqM) Glucose (74-99) mg/dL POC Glucose (mg/dL) 113 H (75-99) mg/dL POC Glu Automotive Mechanical Engineer ID Nael Bourne A Plasma Lactic Acid Blaine (0.7-2.0) mmol/L Calcium (8.4-10.2) mg/dL Total Bilirubin (0.2-1.3) mg/dL AST (17-59) U/L ALT (21-72) U/L Alkaline Phosphatase (38-126) U/L Troponin I 0.013 (0.000-0.034) ng/mL Total Protein (6.3-8.2) g/dL Albumin (3.5-5.0) g/dL Amylase (30-110) U/L Lipase (23-300) U/L Acetone, Qual (Negative) Disposition Clinical Impression: Intractable vomiting with nausea Disposition: ADMITTED IP TO THIS [facility] Condition: Fair Is patient prescribed a controlled substance at d/c from ED?: No Referrals: Sahra Hurtado MD [Primary Care Provider] - 1-2 days
[2018-05-27] MEDS ORDERED: MORPHINE SULFATE 4 MG/ML SYRINGE IV STA (02:34)
[2018-05-27] MEDS ORDERED: ONDANSETRON 4 MG/2 ML VIAL IVP STA (02:34)
[2018-05-27 02:58] LABS: Glucose,Whole Blood 113 mg/dL (75-99)
[2018-05-27] MEDS ORDERED: PROMETHAZINE INJ 25 MG in SODIUM CHLORIDE 0.9% 50 ML IVPB STA (03:27)
[2018-05-27] MEDS ORDERED: NALOXONE 0.4 MG/ML 1 ML VIAL IV PRN (03:29)
[2018-05-27] MEDS ORDERED: PROMETHAZINE 25 MG TAB PO PRN (03:29)
[2018-05-27] MEDS ORDERED: Insulin Aspart (For Pump) 100 UNIT/ML VIAL SQ-PUMP SCH (03:45)
[2018-05-27] MEDS ORDERED: hydrALAZINE HCL 20 MG/ML 1 ML VIAL IVP STA (03:50)
[2018-05-27 06:59] LABS: Glucose,Whole Blood 151 mg/dL (75-99)
[2018-05-27] MEDS: PROCHLORPERAZINE 5 MG TAB PO PRN ×2 (08:14→20:03)
[2018-05-27] MEDS ORDERED: amLODIPine 10 MG TAB PO SCH (09:00)
[2018-05-27] MEDS ORDERED: LOSARTAN 50 MG TAB PO SCH (09:00)
[2018-05-27] MEDS ORDERED: INSULIN PUMP BASAL RATES 1 EACH MISC MISCELLANE PRN (09:56)
[2018-05-27] MEDS ORDERED: INSPUCOR MISCELLANE PRN (09:56)
[2018-05-27] MEDS ORDERED: INSULIN ASPART (NovoLOG) 100 UNIT/ML VIAL SQ PRN (09:56)
[2018-05-27] MEDS ORDERED: PROCHLORPERAZINE SUPPOSITORY 25 MG SUPP RECTAL PRN (10:27)
--- NOTE | 2018-05-27 10:27 | P.CONS ---
History of Present Illness - Reason for Consult Consult date: 05/27/18 Nausea vomiting history of gastroparesis Requesting physician: Anil Haji - Chief Complaint nasuea vomiting - History of Present Illness 32-year-old gentleman with a history of insulin dependent diabetes mellitus diagnosed at age 19, end-stage renal disease on hemodialysis Friday, chronic intractable symptoms of nausea vomiting chest pain secondary to gastroparesis admitted with intractable nausea vomiting. Patient underwent EGD 04/02/2018 with biopsies and Botox injection in the pylorus. Symptoms of nausea vomiting generalized abdominal discomfort started on Friday. Patient missed his dialysis. Denies fever chills hematemesis hematochezia melena. White count 7.7. Hemoglobin 11.5. Platelet 191. Sodium 136. BUN 19. Creatinine 4.3. Glucose 180. LFTs within normal limits. Lipase 29. Positive acetone. Review of Systems Constitutional: Denies fever, chills, sweats, weight gain, or loss. HEENT: Negative for migraines, blurred vision or loss, earaches, drainage, tinnitus, oral mucosal lesions, dysphagia, or odynophagia. Cardiac: Negative for chest pain, arrhythmias, or palpitation. Respiratory: Negative for shortness of breath, hemoptysis, cough, or sputum production. Gastrointestinal: See HPI for pertinent findings. Genitourinary: Negative for hematuria, urgency, frequency, polyuria, dysuria, or penile discharge. Musculoskeletal: Negative for muscle aches, swelling, arthritis, and art hralgias. Neurologic: Negative for stroke or TIA. Endocrine: Negative for thyroid problems. Skin: Negative for rash or itching. Psychiatric: Negative history for depression and anxiety Past Medical History Past Medical History: Heart Failure, Diabetes Mellitus, Eye Disorder, GERD/Reflux, Hyperlipidemia, Hypertension, Renal Disease Additional Past Medical History / Comment(s): IDDM type I with insulin pump, past DKA, neuropathy bilateral feet, diabetic nephropathy/ESRD with hemodialysis M/W/F last hemo on 04/13/18-pt planning to establish at [facility] for possible kidney transplant, diabetic retinopathy/bleeds bilaterally-pt has very decreased vision and some bilateral eye pain, gastroparesis with botox treatment, esophagitis, hiatal hernia, CHF once, in the past he was on a statin but since taken off. History of Any Multi-Drug Resistant Organisms: None Reported Past Surgical History: Hernia Repair Additional Past Surgical History / Comment(s): 04/2017 bilateral laser eye surgery for retinal bleeds unsuccessful, eye injections, EGD, colonoscopy, dialysis cath placed rt upper chest on 12-03-17, L inguinal hernia repair Past Anesthesia/Blood Transfusion Reactions: Postoperative Nausea & Vomiting (PONV) Additional Past Anesthesia/Blood Transfusion Reaction / Comm: Pt has received multiple transfusions. Past Psychological History: No Psychological Hx Reported Additional Psychological History / Comment(s): Pt resides with his spouse. Pt has very poor vision. His spouse assists him as much as she can. She organizes his medication. He uses glasses and a magnifier on his cell phone to read. He no longer drives, spouse takes to [employer]. They have 3 cats. He is disabled. Smoking Status: Current every day smoker Past Alcohol Use History: None Reported Additional Past Alcohol Use History / Comment(s): started smoking AT AGE 18 smoked 1 ppd cut down 1/4 PPD . TRYING TO QUIT Past Drug Use History: None Reported Additional Drug Use History / Comment(s): rare use of cbd oil - Past Family History Father Family Medical History: No Reported History Additional Family Medical History / Comment(s): Father is healthy Mother Family Medical History: No Reported History Additional Family Medical History / Comment(s): Mother is healthy. Medications and Allergies Home Medications Medication Instructions Recorded Confirmed Type Omeprazole 20 mg PO DAILY 08/28/17 05/26/18 History Multivitamin [Multivitamins Adult 1 tab PO DAILY 11/28/17 05/26/18 History Gummies] Furosemide [Lasix] 80 mg PO BID@0900,1600 #60 tab 12/08/17 05/26/18 Rx Insulin Aspart (For Pump) [NovoLOG 0.01 unit SQ-PUMP CONTINUOUS 03/20/18 History (For Pump)] Potassium Chloride ER [K-Dur 10] 10 meq PO DAILY 03/20/18 05/26/18 History Aspirin EC [Ecotrin Low Dose] 81 mg PO HS 05/18/18 05/26/18 History Cetirizine HCl [Zyrtec] 10 mg PO HS 05/18/18 05/26/18 History Losartan [Cozaar] 50 mg PO DAILY 05/26/18 05/26/18 History amLODIPine [Norvasc] 10 mg PO DAILY 05/26/18 05/26/18 History Allergies Allergy/AdvReac Type Severity Reaction Status Date / Time metoclopramide [From Reglan] AdvReac ITCHY Verified 05/26/18 22:06 FEELING " Physical Exam Vitals: Vital Signs Temp Pulse Pulse Resp BP BP Pulse Ox 05/27/18 07:00 98.2 F 111 H 14 135/72 95 05/27/18 05:43 103 H 18 05/27/18 05:34 97.9 F 102 H 18 129/82 97 05/27/18 04:59 100 18 128/74 100 05/27/18 04:27 101 H 16 177/106 97 05/27/18 02:59 101 H 18 188/120 96 05/26/18 21:50 98.0 F 104 H 20 179/124 99 Intake and Output 05/26/18 05/27/18 05/27/18 22:59 06:59 14:59 Intake Total 50 Balance 50 Intake: Intake, IV Titration 50 Amount Promethazine Inj 25 mg In 50 Sodium Chloride 0.9% 50 ml @ 200 mls/hr IVPB ONCE STA Rx#:[id number] Other: Weight 62 kg General appearance: The patient is alert, oriented visible with nausea week. HET: Head is normocephalic and atraumatic. Pupils are equal and reactive. Oropharynx is clear without lesions. Neck: Supple without lymphadenopathy. Trachea midline. Heart: S1 S2. Regular rate and rhythm. Lungs: No crackles or wheezes are heard. Abdomen: Soft, mildly tender in the midepigastrium, nondistended with bowel sounds. No peritoneal signs. No palpable organomegaly or masses. Extremities: Normal skin color and turgor. No cyanosis, rash, ulceration, clubbing, or edema. Radial and pedal pulses are 2/4 bilaterally. Neurological: No focal deficits. Strength and sensation are grossly intact. Results CBC & Chem 7: 05/26/18 22:34 05/26/18 22:34 Labs: Abnormal Lab Results - Last 24 Hours (Table) 05/26/18 05/26/18 05/27/18 Range/Units 22:34 22:34 02:56 RBC 3.99 L (4.30-5.90) m/uL Hgb 11.5 L (13.0-17.5) gm/dL Hct 35.7 L (39.0-53.0) % RDW 18.0 H (11.5-15.5) % Sodium 136 L (137-145) mmol/L Chloride 94 L (98-107) mmol/L Creatinine 4.34 H (0.66-1.25) mg/dL Glucose 180 H (74-99) mg/dL POC Glucose (mg/dL) 113 H (75-99) mg/dL 05/27/18 Range/Units 06:52 RBC (4.30-5.90) m/uL Hgb (13.0-17.5) gm/dL Hct (39.0-53.0) % RDW (11.5-15.5) % Sodium (137-145) mmol/L Chloride (98-107) mmol/L Creatinine (0.66-1.25) mg/dL Glucose (74-99) mg/dL POC Glucose (mg/dL) 151 H (75-99) mg/dL Assessment and Plan (1) Intractable vomiting with nausea Narrative/Plan: 32-year-old male admitted with intractable nausea vomiting generalized abdominal epigastric discomfort end-stage renal disease hemodialysis underlying gastroparesis GERD with positive acetone. Gastroparesis exacerbation most li shanae metabolic related. Dialysis missed presently being rescheduled. Current Visit: Yes Status: Acute Code(s): R11.2 - NAUSEA WITH VOMITING, UNSPECIFIED SNOMED Code(s): 987160229 (2) Gastroparesis Current Visit: Yes Status: Acute Code(s): K31.84 - GASTROPARESIS SNOMED Code(s): 669800956 (3) ESRD (end stage renal disease) on dialysis Current Visit: Yes Status: Acute Code(s): N18.6 - END STAGE RENAL DISEASE; Z99.2 - DEPENDENCE ON RENAL DIALYSIS SNOMED Code(s): 428605836 (4) Anemia Current Visit: Yes Status: Acute Code(s): D64.9 - ANEMIA, UNSPECIFIED SNOMED Code(s): 932761354 (5) S/P Botox injection Current Visit: Yes Status: Acute Code(s): Z92.29 - PERSONAL HISTORY OF OTHER DRUG THERAPY SNOMED Code(s): 847397772 Plan: 1. Scopolamine patch. Light diet diabetic renal when tolerated for now keep nothing by mouth except medications. 2. Protonix 40 mg daily. 3. Zofran 4 mg every 6 hours. 4. Compazine suppository 25 mg as needed for nausea. 5. Will follow closely with you. Thank you for this kind referral and the opportunity to participate in the care of your patient. This consultation was discussed with Dr. Gallagher. The impre ssion and plan of care have been directed as dictated.
[2018-05-27] MEDS ORDERED: SCOPOLAMINE 1.5MG/72HR PATCH TRANSDERM SCH (10:30)
[2018-05-27] MEDS: ONDANSETRON 4 MG/2 ML VIAL IVP PRN ×2 (11:10→17:44)
--- NOTE | 2018-05-27 11:23 | P.NPCON ---
History of Present Illness - Reason for Consult end stage renal disease - History of Present Illness Reason for consultation: End-stage renal disease History of present illness: Patient is a 32-year-old male seen in renal consultation for end-stage renal disease. He is maintained on hemodialysis on a Friday schedule via right chest permacath. Patient presented to the hospital due to nausea and vomiting which started Friday morning. Patient states he's not able to keep his food down. He is also unable to take his medications. He missed hemodialysis on Friday due to not feeling well. However he did go yesterday to make up his treatment. He is due for dialysis today. Denies chest pain or shortness of breath. Hemodynamically stable. No fever or chills. Shane was diagnosed with diabetes at the age of 19. He does have history of gastroparesis. Etiology of his kidney disease is diabetic kidney disease. Vital signs are stable. General: The patient appeared well nourished and normally developed. HEENT: Head exam is unremarkable. Neck is without jugular venous distension. LUNGS: Lungs are clear to auscultation and percussion. Breath sounds decreased. HEART: Rate and Rhythm are regular. First and second heart sounds normal. No murmurs, rubs or gallops. ABDOMEN: Bowel sounds present. Soft. EXTREMITITES: No clubbing, cyanosis, or edema. Past Medical History Past Medical History: Heart Failure, Diabetes Mellitus, Eye Disorder, GERD/Reflux, Hyperlipidemia, Hypertension, Renal Disease Additional Past Medical History / Comment(s): IDDM type I with insulin pump, past DKA, neuropathy bilateral feet, diabetic nephropathy/ESRD with hemodialysis M/W/F last hemo on 04/13/18-pt planning to establish at [facility] for possible kidney transplant, diabetic retinopathy/bleeds bilaterally-pt has very decreased vision and some bilateral eye pain, gastroparesis with botox treatment, esophagitis, hiatal hernia, CHF once, in the past he was on a statin but since taken off. History of Any Multi-Drug Resistant Organisms: None Reported Past Surgical History: Hernia Repair Additional Past Surgical History / Comment(s): 04/2017 bilateral laser eye surgery for retinal bleeds unsuccessful, eye injections, EGD, colonoscopy, dialysis cath placed rt upper chest on 12-03-17 L inguinal hernia repair Past Anesthesia/Blood Transfusion Reactions: Postoperative Nausea & Vomiting (PONV) Additional Past Anesthesia/Blood Transfusion Reaction / Comment(s): Pt has received multiple transfusions. Past Psychological History: No Psychological Hx Reported Additional Psychological History / Comment(s): Pt resides with his spouse. Pt has very poor vision. His spouse assists him as much as she can. She organizes his medication. He uses glasses and a magnifier on his cell phone to read. He no longer drives, spouse takes to appts. They have 3 cats. He is disabled. Smoking Status: Current every day smoker Past Alcohol Use History: None Reported Additional Past Alcohol Use History / Comment(s): started smoking AT AGE 18 smoked 1 ppd cut down 1/4 PPD . TRYING TO QUIT Past Drug Use History: None Reported Additional Drug Use History / Comment(s): rare use of cbd oil - Past Family History Father Family Medical History: No Reported History Additional Family Medical History / Comment(s): Father is healthy Mother Family Medical History: No Reported History Additional Family Medical History / Comment(s): Mother is healthy. Medications and Allergies Home Medications Medication Instructions Recorded Confirmed Type Omeprazole 20 mg PO DAILY 08/28/17 05/26/18 History Multivitamin [Multivitamins Adult 1 tab PO DAILY 11/28/17 05/26/18 History Gummies] Furosemide [Lasix] 80 mg PO BID@0900,1600 #60 tab 12/08/17 05/26/18 Rx Insulin Aspart (For Pump) [NovoLOG 0.01 unit SQ-PUMP CONTINUOUS 03/20/18 05/26/18 History (For Pump)] Potassium Chloride ER [K-Dur 10] 10 meq PO DAILY 03/20/18 05/26/18 History Aspirin EC [Ecotrin Low Dose] 81 mg PO HS 05/18/18 05/26/18 History Cetirizine HCl [Zyrtec] 10 mg PO HS 05/18/18 05/26/18 History Losartan [Cozaar] 50 mg PO DAILY 05/26/18 05/26/18 History amLODIPine [Norvasc] 10 mg PO DAILY 05/26/18 05/26/18 History Allergies Allergy/AdvReac Type Severity Reaction Status Date / Time metoclopramide [From Reglan] AdvReac ITCHY Verified 05/26/18 22:06 FEELING " Physical Exam Vitals: Vital Signs Temp Pulse Pulse Resp BP BP Pulse Ox 05/27/18 07:00 98.2 F 111 H 14 135/72 95 05/27/18 05:43 103 H 18 05/27/18 05:34 97.9 F 102 H 18 129/82 97 05/27/18 04:59 100 18 128/74 100 05/27/18 04:27 101 H 16 177/106 97 05/27/18 02:59 101 H 18 188/120 96 05/26/18 21:50 98.0 F 104 H 20 179/124 99 Intake and Output 05/26/18 05/27/18 05/27/18 22:59 06:59 14:59 Intake Total 50 Balance 50 Intake: Intake, IV Titration 50 Amount Promethazine Inj 25 mg In 50 Sodium Chloride 0.9% 50 ml @ 200 mls/hr IVPB ONCE STA Rx#:[id number] Other: Weight 62 kg Results - Lab Results Most recent lab results Calcium 9.2 mg/dL (8.4-10.2) 05/26/18 22:34 05/26/18 22:34 05/26/18 22:34 Assessment and Plan Plan: Assessment: 1. End-stage renal disease maintained on hemodialysis on a Friday schedule via right chest permacath. 2. Intractable nausea and vomiting likely from gastroparesis. GI following. 3. Hypertension with chronic kidney disease. Controlled. Partially due to pain. 4. Insulin-dependent diabetes mellitus. Plan: Hemodialysis today. Thank you for the consultation. I will continue to follow the patient with you during his hospital stay.
[2018-05-27 11:39] LABS: Glucose,Whole Blood 143 mg/dL (75-99)
[2018-05-27] MEDS: FUROSEMIDE 40 MG TAB PO SCH ×2 (14:25→15:12)
[2018-05-27] MEDS: MULTIVITAMINS, THERA 1 EACH TAB PO SCH (14:25)
[2018-05-27] MEDS: PANTOPRAZOLE 40 MG TABLET PO SCH (14:25)
[2018-05-27] MEDS: INSULIN PUMP MEAL BOLUS 1 UNIT MISC MISCELLANE SCH ×3 (14:26→21:08)
--- NOTE | 2018-05-27 14:46 | P.HPIM ---
History of Present Illness Chief Complaint: Intractable nausea vomiting This is a 32-year-old gentleman with a history of end-stage renal disease on dialysis, history of diabetes mellitus, gastroparesis comes in with above- mentioned complaints. The patient says that he was okay until 2 days ago when he started having nausea and vomiting. He cannot hold anything down. He had to cancel his Friday dialysis but on the next day for dialysis but he continued to have nausea vomiting. He said that he did not notice any blood or coffee-ground emesis. He otherwise does not complain of any chest pain racing heart, no cough no shortness breath, he does not complain of any abdominal pain, no diarrhea constipation, no itch no rash, no lightheadedness no dizziness, no fever no chills. Next ER course- patient's labwork done in the ER which showed WBC 7.7 hemoglobin 11.5 platelets 191 sodium 136 potassium 5.1 bun 19 creatinine 4.34 his vitals were stable. Patient was admitted to the hospitalist service a further evaluation and management Review of Systems All systems: negative Past Medical History Past Medical History: Heart Failure, Diabetes Mellitus, Eye Disorder, GERD/Reflux, Hyperlipidemia, Hypertension, Renal Disease Additional Past Medical History / Comment(s): IDDM type I with insulin pump, past DKA, neuropathy bilateral feet, diabetic nephropathy/ESRD with hemodialysis M/W/F last hemo on 04/13/18-pt planning to establish at [facility] for possible kidney transplant, diabetic retinopathy/bleeds bilaterally-pt has very decreased vision and some bilateral eye pain, gastroparesis with botox treatment, esophagitis, hiatal hernia, CHF once, in the past he was on a statin but since taken off. History of Any Multi-Drug Resistant Organisms: None Reported Past Surgical History: Hernia Repair Additional Past Surgical History / Comment(s): 04/2017 bilateral laser eye surgery for retinal bleeds unsuccessful, eye injections, EGD, colonoscopy, dialysis cath placed rt upper chest on 12-03-17, L inguinal hernia repair Past Anesthesia/Blood Transfusion Reactions: Postoperative Nausea & Vomiting (PONV) Additional Past Anesthesia/Blood Transfusion Reaction / Comment(s): Pt has received multiple transfusions. Past Psychological History: No Psychological Hx Reported Additional Psychological History / Comment(s): Pt resides with his spouse. Pt has very poor vision. His spouse assists him as much as she can. She organizes his medication. He uses glasses and a magnifier on his cell phone to read. He no longer drives, spouse takes to [employer]. They have 3 cats. He is disabled. Smoking Status: Current every day smoker Past Alcohol Use History: None Reported Additional Past Alcohol Use History / Comment(s): started smoking AT AGE 18 smoked 1 ppd cut down 1/4 PPD . TRYING TO QUIT Past Drug Use History: None Reported Additional Drug Use History / Comment(s): rare use of cbd oil - Past Family History Father Family Medical History: No Reported History Additional Family Medical History / Comment(s): Father is healthy Mother Family Medical History: No Reported History Additional Family Medical History / Comment(s): Mother is healthy. Medications and Allergies Home Medications Medication Instructions Recorded Confirmed Type Omeprazole 20 mg PO DAILY 08/28/17 05/26/18 History Multivitamin [Multivitamins Adult 1 tab PO DAILY 11/28/17 05/26/18 History Gummies] Furosemide [Lasix] 80 mg PO BID@0900,1600 #60 tab 12/08/17 05/26/18 Rx Insulin Aspart (For Pump) [NovoLOG 0.01 unit SQ-PUMP CONTINUOUS 03/20/18 05/26/18 History (For Pump)] Potassium Chloride ER [K-Dur 10] 10 meq PO DAILY 03/20/18 05/26/18 History Aspirin EC [Ecotrin Low Dose] 81 mg PO HS 05/18/18 05/26/18 History Cetirizine HCl [Zyrtec] 10 mg PO HS 05/18/18 05/26/18 History Losartan [Cozaar] 50 mg PO DAILY 05/26/18 05/26/18 History amLODIPine [Norvasc] 10 mg PO DAILY 05/26/18 05/26/18 History Allergies Allergy/AdvReac Type Severity Reaction Status Date / Time metoclopramide [From Reglan] AdvReac ITCHY Verified 05/26/18 22:06 FEELING " Physical Exam Vitals: Vital Signs Temp Pulse Pulse Resp BP BP Pulse Ox 05/27/18 07:00 98.2 F 111 H 14 135/72 95 05/27/18 05:43 103 H 18 05/27/18 05:34 97.9 F 102 H 18 129/82 97 04/17/19 04:59 100 18 128/74 100 05/27/18 04:27 101 H 16 177/106 97 05/27/18 02:59 101 H 18 188/120 96 05/26/18 21:50 98.0 F 104 H 20 179/124 99 Intake and Output 05/26/18 05/27/18 05/27/18 22:59 06:59 14:59 Intake Total 50 250 Balance 50 250 Intake: Intake, IV Titration 50 50 Amount Promethazine Inj 25 mg In 50 50 Sodium Chloride 0.9% 50 ml @ 200 mls/hr IVPB ONCE STA Rx#:[id number] Oral 200 Other: Weight 62 kg On exam, alert and oriented x3. HEENT: Conjunctivae normal. eyes normal. NECK: No JVD. No thyroid enlargement. No LNs CARDIOVASCULAR: S1, S2 muffled. No murmur RESPIRATION: Breath sounds diminished in the bases. No rhonchi or crackles. No bronchial breathing. ABDOMEN: Soft, nontender . No guarding. no masses palpable. No ascites, No hepatosplenomegaly.Bowel sounds heard. LEGS: No edema. no swelling NERVOUS SYSTEM: Cranial N 2-12 grossly normal. Moves all 4 limbs. No focal deficits. No sensory deficit. No signs of cerebellar dysfucntion. Skin: no ulcer no rash Results CBC & Chem 7: 05/26/18 22:34 05/26/18 22:34 Labs: Abnormal Lab Results - Last 24 Hours (Table) 05/26/18 05/26/18 05/27/18 Range/Units 22:34 22:34 02:56 RBC 3.99 L (4.30-5.90) m/uL Hgb 11.5 L (13.0-17.5) gm/dL Hct 35.7 L (39.0-53.0) % RDW 18.0 H (11.5-15.5) % Sodium 136 L (137-145) mmol/L Chloride 94 L (98-107) mmol/L Creatinine 4.34 H (0.66-1.25) mg/dL Glucose 180 H (74-99) mg/dL POC Glucose (mg/dL) 113 H (75-99) mg/dL 05/27/18 05/27/18 Range/Units 06:52 11:33 RBC (4.30-5.90) m/uL Hgb (13.0-17.5) gm/dL Hct (39.0-53.0) % RDW (11.5-15.5) % Sodium (137-145) mmol/L Chloride (98-107) mmol/L Creatinine (0.66-1.25) mg/dL Glucose (74-99) mg/dL POC Glucose (mg/dL) 151 H 143 H (75-99) mg/dL Thrombosis Risk Factor Assmnt - Choose All That Apply Any of the Below Risk Factors Present?: Yes Each Factor Represents 1 point: Age 41-60 years, Medical pt on bed rest Other Risk Factors: No Other congenital or acquired thrombophilia - If yes, enter type in comment: No Thrombosis Risk Factor Assessment Total Risk Factor Score: 2 Thrombosis Risk Factor Assessment Level: Low Risk Assessment and Plan Assessment: - Intractable nausea vomiting - Gastroparesis probably contributing to above - ESRD on dialysis - Insulin-dependent diabetes mellitus Plan - We'll admit the patient MedSurg with telemetry - We'll continue Zofran and Compazine - Continue IV fluids - We'll continue dialysis as per nephro recommendations - Patient is nothing by mouth for now advance diet as tolerated - We'll continue DVT and GI prophylaxis - We'll order for lab work in the morning - Expected length of stay more than 2 midnights - Patient is full code Time with Patient: Greater than 30
[2018-05-27 16:38] LABS: Glucose,Whole Blood 89 mg/dL (75-99)
[2018-05-27] MEDS: amLODIPine 10 MG TAB PO SCH (19:56)
[2018-05-27] MEDS: LOSARTAN 50 MG TAB PO SCH (19:56)
[2018-05-27] MEDS: FUROSEMIDE 80 MG TAB PO SCH (19:56)
[2018-05-27 20:43] LABS: Glucose,Whole Blood 49 mg/dL (75-99)
[2018-05-27] MEDS ORDERED: LORATADINE 10 MG TAB PO SCH (21:00)
[2018-05-27] MEDS ORDERED: ASPIRIN 81 MG PO SCH (21:00)
[2018-05-27 21:20] LABS: Glucose,Whole Blood 69 mg/dL (75-99)
[2018-05-27 21:41] LABS: Glucose,Whole Blood 95 mg/dL (75-99)
[2018-05-27] MEDS ORDERED: cloNIDine HCL 0.2 MG TAB PO STA (21:56)
[2018-05-28 00:46] LABS: Glucose,Whole Blood 117 mg/dL (75-99)
[2018-05-28] MEDS: INSULIN PUMP MEAL BOLUS 1 UNIT MISC MISCELLANE SCH ×3 (07:09→17:32)
[2018-05-28 07:27] LABS: Glucose,Whole Blood 48 mg/dL (75-99)
[2018-05-28 07:48] LABS: Glucose,Whole Blood 129 mg/dL (75-99)
[2018-05-28] MEDS: MULTIVITAMINS, THERA 1 EACH TAB PO SCH (08:51)
[2018-05-28] MEDS: amLODIPine 10 MG TAB PO SCH (08:51)
[2018-05-28] MEDS: LOSARTAN 50 MG TAB PO SCH (08:51)
[2018-05-28] MEDS: PANTOPRAZOLE 40 MG TABLET PO SCH (08:52)
[2018-05-28] MEDS: FUROSEMIDE 80 MG TAB PO SCH ×2 (08:52→16:19)
[2018-05-28] MEDS: PROCHLORPERAZINE 5 MG TAB PO PRN (09:28)
[2018-05-28 09:29] LABS: Anisocytosis Slight; HCT 33.5 % (39.0-53.0); HGB 10.9 gm/dL (13.0-17.5); Hypochromasia Slight; MCHC 32.6 g/dL (31.0-37.0); Mean Platelet Volume 7.5; Platelet Count 169 k/uL (150-450); Poikilocytosis Slight; RBC 3.64 m/uL (4.30-5.90); RDW 18.7 % (11.5-15.5); WBC 5.6 k/uL (3.8-10.6)
[2018-05-28 09:40] LABS: Calcium 8.9 mg/dL (8.4-10.2); Potassium 4.1 mmol/L (3.5-5.1)
--- NOTE | 2018-05-28 09:50 | P.PN ---
Subjective Patient is seen in follow-up for end-stage renal disease. He is maintained on hemodialysis on a Friday schedule. Tolerated hemodialysis well yesterday. Nausea and vomiting has improved. He is tolerating clear liquid diet. Vital signs are stable. General: The patient appeared well nourished and normally developed. HEENT: Head exam is unremarkable. Neck is without jugular venous distension. LUNGS: Lungs are clear to auscultation and percussion. Breath sounds decreased. HEART: Rate and Rhythm are regular. First and second heart sounds normal. No murmurs, rubs or gallops. ABDOMEN: Abdominal exam reveals normal bowel sounds. Non-tender and non- distended. No evidence of peritonitis. EXTREMITITES: No clubbing, cyanosis, or edema. Objective - Vital Signs Vital signs: Vital Signs Temp 98.3 F 05/28/18 07:00 Pulse 90 05/28/18 07:00 Resp 16 05/28/18 07:00 BP 155/85 05/28/18 07:00 Pulse Ox 98 05/28/18 07:00 Intake & Output 05/27/18 05/28/18 05/28/18 18:59 06:59 18:59 Intake Total 250 Balance 250 Intake: Intake, IV Titration 50 Amount Promethazine Inj 25 mg In 50 Sodium Chloride 0.9% 50 ml @ 200 mls/hr IVPB ONCE STA Rx#:[id number] Oral 200 Other: # Voids 0 0 - Labs CBC & Chem 7: 05/28/18 07:57 05/28/18 07:57 Labs: Abnormal Lab Results - Last 24 Hours (Table) 05/27/18 05/27/18 05/27/18 Range/Units 11:33 20:30 21:00 RBC (4.30-5.90) m/uL Hgb (13.0-17.5) gm/dL Hct (39.0-53.0) % RDW (11.5-15.5) % Sodium (137-145) mmol/L Creatinine (0.66-1.25) mg/dL Glucose (74-99) mg/dL POC Glucose (mg/dL) 143 H 49 L 69 L (75-99) mg/dL 05/28/18 05/28/18 05/28/18 Range/Units 00:45 07:13 07:36 RBC (4.30-5.90) m/uL Hgb (13.0-17.5) gm/dL Hct (39.0-53.0) % RDW (11.5-15.5) % Sodium (137-145) mmol/L Creatinine (0.66-1.25) mg/dL Glucose (74-99) mg/dL POC Glucose (mg/dL) 117 H 48 L 129 H (75-99) mg/dL 05/28/18 05/28/18 Range/Units 07:57 07:57 RBC 3.64 L (4.30-5.90) m/uL Hgb 10.9 L (13.0-17.5) gm/dL Hct 33.5 L (39.0-53.0) % RDW 18.7 H (11.5-15.5) % Sodium 134 L (137-145) mmol/L Creatinine 4.17 H (0.66-1.25) mg/dL Glucose 123 H (74-99) mg/dL POC Glucose (mg/dL) (75-99) mg/dL Assessment and Plan Plan: Assessment: 1. End-stage renal disease maintained on hemodialysis on a Friday schedule via right chest permacath. 2. Intractable nausea and vomiting likely from gastroparesis. GI following. Symptoms improved. 3. Hypertension with chronic kidney disease. . stable Partially due to pain. 4. Insulin-dependent diabetes mellitus. Plan: Hemodialysis tomorrow. Hopefully his diet can be advanced today.
[2018-05-28 11:42] LABS: Glucose,Whole Blood 149 mg/dL (75-99)
--- NOTE | 2018-05-28 13:33 | P.PN ---
Subjective Progress Note Date: 05/28/18 Principal diagnosis: Nausea vomiting Feeling better. Less nausea. Dialysis yesterday. Objective - Vital Signs Vital signs: Vital Signs Temp 98.3 F 05/28/18 07:00 Pulse 90 05/28/18 07:00 Resp 16 05/28/18 07:00 BP 155/85 05/28/18 07:00 Pulse Ox 98 05/28/18 07:00 Intake & Output 05/27/18 05/28/18 05/28/18 18:59 06:59 18:59 Intake Total 250 Balance 250 Intake: Intake, IV Titration 50 Amount Promethazine Inj 25 mg In 50 Sodium Chloride 0.9% 50 ml @ 200 mls/hr IVPB ONCE STA Rx#:[id number] Oral 200 Other: # Voids 0 0 - Exam General appearance: The patient is alert, oriented, in no acute distress. HET: Head is normocephalic and atraumatic. Pupils are equal and reactive. Oropharynx is clear without lesions. Neck: Supple without lymphadenopathy. Trachea midline. Heart: S1 S2. Regular rate and rhythm. Lungs: No crackles or wheezes are heard. Abdomen: Soft, mild midepigastric tenderness, nondistended with bowel sounds. No peritoneal signs. No palpable organomegaly or masses. Extremities: Normal skin color and turgor. No cyanosis, rash, ulceration, clubb ing, or edema. Radial and pedal pulses are 2/4 bilaterally. Neurological: No focal deficits. Strength and sensation are grossly intact. - Labs CBC & Chem 7: 05/28/18 07:57 05/28/18 07:57 Labs: Abnormal Lab Results - Last 24 Hours (Table) 05/27/18 05/27/18 05/28/18 Range/Units 20:30 21:00 00:45 RBC (4.30-5.90) m/uL Hgb (13.0-17.5) gm/dL Hct (39.0-53.0) % RDW (11.5-15.5) % Sodium (137-145) mmol/L Creatinine (0.66-1.25) mg/dL Glucose (74-99) mg/dL POC Glucose (mg/dL) 49 L 69 L 117 H (75-99) mg/dL 05/28/18 05/28/18 05/28/18 Range/Units 07:13 07:36 07:57 RBC 3.64 L (4.30-5.90) m/uL Hgb 10.9 L (13.0-17.5) gm/dL Hct 33.5 L (39.0-53.0) % RDW 18.7 H (11.5-15.5) % Sodium (137-145) mmol/L Creatinine (0.66-1.25) mg/dL Glucose (74-99) mg/dL POC Glucose (mg/dL) 48 L 129 H (75-99) mg/dL 05/28/1819 Range/Units 07:57 11:31 RBC (4.30-5.90) m/uL Hgb (13.0-17.5) gm/dL Hct (39.0-53.0) % RDW (11.5-15.5) % Sodium 134 L (137-145) mmol/L Creatinine 4.17 H (0.66-1.25) mg/dL Glucose 123 H (74-99) mg/dL POC Glucose (mg/dL) 149 H (75-99) mg/dL Assessment and Plan (1) Intractable vomiting with nausea Narrative/Plan: 32-year-old male admitted with intractable nausea vomiting generalized abdominal epigastric discomfort end-stage renal disease hemodialysis underlying gastrop aresis GERD with positive acetone. Gastroparesis exacerbation most likely metabolic related. Current Visit: Yes Status: Acute Code(s): R11.2 - NAUSEA WITH VOMITING, UNSPECIFIED SNOMED Code(s): 679791867 (2) Gastroparesis Current Visit: Yes Status: Acute Code(s): K31.84 - GASTROPARESIS SNOMED Code(s): 593877621 (3) ESRD (end stage renal disease) on dialysis Current Visit: Yes Status: Acute Code(s): N18.6 - END STAGE RENAL DISEASE; Z99.2 - DEPENDENCE ON RENAL DIALYSIS SNOMED Code(s): 691461821 (4) Anemia Current Visit: Yes Status: Acute Code(s): D64.9 - ANEMIA, UNSPECIFIED SNOMED Code(s): 988592996 (5) S/P Botox injection Current Visit: Yes Status: Acute Code(s): Z92.29 - PERSONAL HISTORY OF OTHER DRUG THERAPY SNOMED Code(s): 482630054 Plan: 1. Slowly improving. Continue with Scopolamine patch. Light diet diabetic renal when tolerated. 2. Protonix 40 mg daily. 3. Zofran 4 mg every 6 hours. 4. Compazine suppository 25 mg as needed for nausea. 5. Will follow closely with you. Assessment and plan a care discussed with Dr. Gallagher
--- NOTE | 2018-05-28 13:49 | P.DS ---
Providers Date of admission: 05/27/18 03:29 Expected date of discharge: 05/28/18 Attending physician: Anil Haji Consults: 05/27/18 03:30 Consult Physician Routine Consulting Provider: Gregory Bacon Consult Reason/Comments: Gastroparesis Do you want consulting provider notified?: Yes 05/27/18 09:46 Consult Physician Routine Consulting Provider: Teodoro Hodgson Consult Reason/Comments: dialysis Do you want consulting provider notified?: Yes Primary care physician: Sahra Hurtado Hospital Course: Discharge diagnosis - Intractable nausea vomiting - Gastroparesis probably causing above - ERSD on HD - Insulin-dependent diabetes mellitus Hospital course 32-year-old gentleman with a history of insulin-dependent diabetes mellitus and also end-stage renal disease on hemodialysis Friday comes in for intractable nausea vomiting. He has a history of gastroparesis which is probably causing this. Gastroenterology and nephrology were consulted. He was getting his regular scheduled hemodialysis. He was put on Compazine, Zofran and Phenergan which improved his nausea vomiting. On 05/28/2018 On exam, alert and oriented x3. HEENT: Conjunctivae normal. eyes normal. NECK: No JVD. No thyroid enlargement. No LNs CARDIOVASCULAR: S1, S2 muffled. No murmur RESPIRATION: Breath sounds diminished in the bases. No rhonchi or crackles. No bronchial breathing. ABDOMEN: Soft, nontender . No guarding. no masses palpable. No ascites, No hepatosplenomegaly.Bowel sounds heard. LEGS: No edema. no swelling NERVOUS SYSTEM: Cranial N 2-12 grossly normal. Moves all 4 limbs. No focal deficits. No sensory deficit. No signs of cerebellar dysfucntion. Skin: no ulcer no rash Joints: No active swelling. No inflammation. Lymphatic system. No LN neck axilla or groin. Patient will be discharged later on in the day if he tolerates the food. He was instructed to take it easy on the food for the next few days. He was also presc ribed Compazine when necessary if he has any further episodes of nausea vomiting. He was instructed to come to the ER if the nausea vomiting does not get controlled with Compazine and other remedies. Patient Condition at Discharge: Fair Plan - Discharge Summary New Discharge Prescriptions: New Prochlorperazine [Compazine] 5 mg PO Q8HR PRN #30 tab PRN Reason: Nausea And Vomiting Continue Omeprazole 20 mg PO DAILY Multivitamin [Multivitamins Adult Gummies] 1 tab PO DAILY Furosemide [Lasix] 80 mg PO BID@0900,1600 #60 tab Potassium Chloride ER [K-Dur 10] 10 meq PO DAILY Insulin Aspart (For Pump) [NovoLOG (For Pump)] 0.01 unit SQ-PUMP CONTINUOUS Cetirizine HCl [Zyrtec] 10 mg PO HS Aspirin EC [Ecotrin Low Dose] 81 mg PO HS amLODIPine [Norvasc] 10 mg PO DAILY Losartan [Cozaar] 50 mg PO DAILY Discharge Medication List Omeprazole 20 mg PO DAILY 08/28/17 [History] Multivitamin [Multivitamins Adult Gummies] 1 tab PO DAILY 11/28/17 [History] Furosemide [Lasix] 80 mg PO BID@0900,1600 #60 tab 12/08/17 [Rx] Insulin Aspart (For Pump) [NovoLOG (For Pump)] 0.01 unit SQ-PUMP CONTINUOUS 03/20/18 [History] Potassium Chloride ER [K-Dur 10] 10 meq PO DAILY 03/20/18 [History] Aspirin EC [Ecotrin Low Dose] 81 mg PO HS 05/18/18 [History] Cetirizine HCl [Zyrtec] 10 mg PO HS 05/18/18 [History] Losartan [Cozaar] 50 mg PO DAILY 05/26/18 [History] amLODIPine [Norvasc] 10 mg PO DAILY 05/26/18 [History] Prochlorperazine [Compazine] 5 mg PO Q8HR PRN #30 tab 05/28/18 [Rx] Follow up Appointment(s)/Referral(s): Sahra Hurtado MD [Primary Care Provider] - 1-2 days Activity/Diet/Wound Care/Special Instructions: If he have any chest pain, any racing heart, any cough shortness breath, any uncontrollable nausea vomiting or any uncontrolled diarrhea constipation please call 911 or come to the ER Discharge Disposition: HOME SELF-CARE
[2018-05-28 14:20] VITALS: BP 159/82; PULSE 89; TEMP 98.5
[2018-05-28 16:41] LABS: Glucose,Whole Blood 106 mg/dL (75-99)
[2018-05-28 17:51] VITALS: RESP 17
[2018-06-01 09:02] LABS: Glucose,Whole Blood 48 mg/dL (75-99)
[2018-06-01 09:02] LABS: Glucose,Whole Blood 46 mg/dL (75-99)
== END 2018-05-28 18:30 | disposition home or self-care (01) ==
LOC: EC 21:48 → 4SSUR 05-27 03:29
PROVIDERS: ADMIT Hospitalist; ATTEND Hospitalist
DX: R11.2 Nausea with vomiting, unspecified (principal); E10.43 Type 1 diabetes mellitus with diabetic autonomic (poly)neuropathy; K31.84 Gastroparesis; D64.9 Anemia, unspecified; N18.6 End stage renal disease; I13.2 Hypertensive heart and chronic kidney disease with heart failure and with stage 5 chronic kidney disease, or end stage renal disease; E10.22 Type 1 diabetes mellitus with diabetic chronic kidney disease; E10.319 Type 1 diabetes mellitus with unspecified diabetic retinopathy without macular edema; K44.9 Diaphragmatic hernia without obstruction or gangrene; E10.42 Type 1 diabetes mellitus with diabetic polyneuropathy; K21.9 Gastro-esophageal reflux disease without esophagitis; I50.9 Heart failure, unspecified; H54.7 Unspecified visual loss; E78.5 Hyperlipidemia, unspecified; F17.210 Nicotine dependence, cigarettes, uncomplicated; Z79.82 Long term (current) use of aspirin; Z79.4 Long term (current) use of insulin; Z79.899 Other long term (current) drug therapy; Z99.2 Dependence on renal dialysis; Z96.41 Presence of insulin pump (external) (internal); Z88.8 Allergy status to other drugs, medicaments and biological substances; Z92.29 Personal history of other drug therapy
CPT/HCPCS: 96376 ×3; 96374; 96375 ×2; 99285; 36415 ×2; 80053; 80048; 82150; 82009; 83605; 83690; 84484; 85025; 85027; 71045; G0257 ×2; G0378 ×2; S0183 ×2; J2270 ×2; J0360; J2550; J2405 ×2; 90935

== ENCOUNTER 2018-06-19 11:49 | Emergency (ER) | payer MEDICARE, OTHER ==
[2018-06-19 12:16] VITALS: BP 138/88; TEMP 98.5
[2018-06-19] MEDS ORDERED: SODIUM CHLORIDE 0.9% 1,000 ML IV ONE (12:38)
[2018-06-19] MEDS ORDERED: ONDANSETRON 4 MG/2 ML VIAL IVP STA (12:38)
[2018-06-19] MEDS ORDERED: MORPHINE SULFATE 2 MG/ML SYRINGE IVP STA (13:30)
[2018-06-19 13:38] LABS: Albumin 3.5 g/dL (3.5-5.0); Calcium 9.1 mg/dL (8.4-10.2); Potassium 4.3 mmol/L (3.5-5.1); Total Bilirubin 0.8 mg/dL (0.2-1.3); Total Protein 5.8 g/dL (6.3-8.2)
[2018-06-19 13:59] LABS: Basophils % (A) 1 %; Eosinophils # (A) 0.1 k/uL (0-0.7); Eosinophils % (A) 1 %; Lymphocytes # (A) 1.1 k/uL (1.0-4.8); Lymphocytes % (A) 17 %; MCH 28.3 pg (25.0-35.0); MCHC 32.3 g/dL (31.0-37.0); MCV 87.8 fL (80.0-100.0); Mean Platelet Volume 9.2; Monocytes # (A) 0.3 k/uL (0-1.0); Monocytes % (A) 5 %; Neutrophils # (A) 4.9 k/uL (1.3-7.7); Neutrophils % (A) 75 %; Platelet Count 117 k/uL (150-450); Poikilocytosis Slight; RBC 5.12 m/uL (4.30-5.90); RDW 15.9 % (11.5-15.5); WBC 6.5 k/uL (3.8-10.6)
[2018-06-19 14:03] LABS: HGB 14.5 gm/dL (13.0-17.5)
[2018-06-19 14:13] VITALS: PULSE 99; RESP 16
--- NOTE | 2018-06-19 14:14 | ED ---
Abdominal Pain HPI - General Chief Complaint: Abdominal Pain Stated Complaint: diarrhea/vomiting Time Seen by Provider: 06/19/18 12:34 Source: patient, family Mode of arrival: wheelchair Limitations: no limitations - History of Present Illness Initial Comments: 32-year-old male history of end-stage renal disease, gastroparesis, type 1 diabetes presented today for chief complaint of nausea vomiting diarrhea. Patient states symptoms are identical to his gastroparesis the past. Patient states since a Botox injection in March by Dr. Saxena he has not had symptoms. He states he is feeling like the treatment is wearing off, made an appointment for next . Pt states the developed symptoms the day after dialysis. She denies fever or chills night sweats hematemesis melena hematochezia he denies any headache dizziness chest pain or shortness of breath. Remaining review of system negative. Upon arrival patient appears uncomfortab le but nontoxic. - Related Data Home Medications Medication Instructions Recorded Confirmed Omeprazole 20 mg PO DAILY 08/28/17 06/19/18 Multivitamin [Multivitamins Adult 1 tab PO DAILY 11/28/17 06/19/18 Gummies] Insulin Aspart (For Pump) [NovoLOG 0.01 unit SQ-PUMP CONTINUOUS 03/20/18 06/19/18 (For Pump)] Potassium Chloride ER [K-Dur 10] 10 meq PO DAILY 03/20/18 06/19/18 Aspirin EC [Ecotrin Low Dose] 81 mg PO HS 05/18/18 06/19/18 Cetirizine HCl [Zyrtec] 10 mg PO HS 05/18/18 06/19/18 Losartan [Cozaar] 50 mg PO DAILY 05/26/18 06/19/18 amLODIPine [Norvasc] 10 mg PO DAILY 05/26/18 06/19/18 Calcium Acetate [Phoslo] 667 mg PO TID 06/19/18 06/19/18 Cyanocobalamin (Vitamin B-12) 1,000 mcg PO DAILY 06/19/18 06/19/18 [Vitamin B-12] Previous Rx's Medication Instructions Recorded Furosemide [Lasix] 80 mg PO BID@0900,1600 #60 tab 12/08/17 Prochlorperazine [Compazine] 5 mg PO Q8HR PRN #30 tab 05/28/18 Allergies Allergy/AdvReac Type Severity Reaction Status Date / Time metoclopramide [From Reglan] AdvReac ITCHY Verified 06/19/18 13:07 FEELING " Review of Systems ROS Statement: Those systems with pertinent positive or pertinent negative responses have been documented in the HPI. ROS Other: All systems not noted in ROS Statement are negative. Past Medical History Past Medical History: Heart Failure, Diabetes Mellitus, Eye Disorder, GERD/Ref lux, Hyperlipidemia, Hypertension, Renal Disease Additional Past Medical History / Comment(s): IDDM type I with insulin pump, past DKA, neuropathy bilateral feet, diabetic nephropathy/ESRD with hemodialysis M/W/F last hemo on 04/13/18-pt planning to establish at [facility] for possible kidney transplant, diabetic retinopathy/bleeds bilaterally-pt has very decreased vision and some bilateral eye pain, gastroparesis with botox treatment, esophagitis, hiatal hernia, CHF once, in the past he was on a statin but since taken off. History of Any Multi-Drug Resistant Organisms: None Reported Past Surgical History: Hernia Repair Additional Past Surgical History / Comment(s): 04/2017 bilateral laser eye surg irene for retinal bleeds unsuccessful, eye injections, EGD, colonoscopy, dialysis cath placed rt upper chest on 12-03-17, L inguinal hernia repair Past Anesthesia/Blood Transfusion Reactions: Postoperative Nausea & Vomiting (PONV) Additional Past Anesthesia/Blood Transfusion Reaction / Comment(s): Pt has received multiple transfusions. Past Psychological History: No Psychological Hx Reported Smoking Status: Current every day smoker Past Alcohol Use History: None Reported Past Drug Use History: None Reported - Past Family History Father Family Medical History: No Reported History Additional Family Medical History / Comment(s): Father is healthy Mother Family Medical History: No Reported History Additional Family Medical History / Comment(s): Mother is healthy. General Exam - General Exam Comments Initial Comments: General: The patient is awake and alert, appearing uncomfortable. Eye: Pupils are equal, round and reactive to light, extra-ocular movements are intact. No nystagmus. There is normal conjunctiva bilaterally. No signs of icterus. Ears, nose, mouth and throat: There are moist mucous membranes and no oral lesions. Neck: The neck is supple, there is no tenderness or JVD. Cardiovascular: There is a regular rate and rhythm. No murmur, rub or gallop is appreciated. Respiratory: Lungs are clear to auscultation, respirations are non-labored, breath sounds are equal. No wheezes, stridor, rales, or rhonchi. Gastrointestinal: Soft, non-distended, non-tender abdomen without masses or organomegaly noted. There is no rebound or guarding present. No CVA tenderness. Bowel sounds are unremarkable. Musculoskeletal: Normal ROM, no tenderness. Strength 5/5. Sensation intact. Radial pulses equal bilaterally 2+. Neurological: A&O x 3. CN II-XII intact, There are no obvious motor or sensory deficits. Coordination appears grossly intact. Speech is normal. Skin: Skin is warm and dry and no rashes or lesions are noted. Psychiatric: Cooperative, appropriate mood & affect, normal judgment. Limitations: no limitations Course Vital Signs 06/19/18 06/19/18 12:13 14:12 Temperature 98.5 F Pulse Rate 105 H 99 Respiratory 18 16 Rate Blood Pressure 138/88 O2 Sat by Pulse 98 96 Oximetry Medical Decision Making - Medical Decision Making Upon abdominal examination there is no localized tenderness. Patient states this is identical to gastroparesis in the past. Patient has appointment upcoming with gastroenterology. Patient was given symptomatic treatment. Patient's laboratory studies within baseline of patient normal values. Elevation of Cr. Pt has scheduled dialysis at 3PM today. At this time feel patient is stable for discharge given no significant change in electrolytes, and patient's gastroparesis a chronic illness. Pt is agreeable with this. Encourage patient to return if symptoms do not improve. Patient is comfortable with discharge he states he wants to make it to dialysis. I discussed case with Dr. Douglas who reviewed labs. He is agreeable with care plan and discharge today. - Lab Data Result diagrams: 06/19/18 13:00 06/19/18 13:00 Lab Results 06/19/18 06/19/18 06/19/18 Range/Units 13:00 13:00 13:45 WBC 6.5 (3.8-10.6) k/uL RBC 5.12 (4.30-5.90) m/uL Hgb 14.5 D (13.0-17.5) gm/dL Hct 45.0 (39.0-53.0) % MCV 87.8 (80.0-100.0) fL MCH 28.3 (25.0-35.0) pg MCHC 32.3 (31.0-37.0) g/dL RDW 15.9 H (11.5-15.5) % Plt Count 117 L (150-450) k/uL Neutrophils % 75 % Lymphocytes % 17 % Monocytes % 5 % Eosinophils % 1 % Basophils % 1 % Neutrophils # 4.9 (1.3-7.7) k/uL Lymphocytes # 1.1 (1.0-4.8) k/uL Monocytes # 0.3 (0-1.0) k/uL Eosinophils # 0.1 (0-0.7) k/uL Basophils # 0.0 (0-0.2) k/uL Poikilocytosis Slight Sodium 135 L (137-145) mmol/L Potassium 4.3 (3.5-5.1) mmol/L Chloride 91 L (98-107) mmol/L Carbon Dioxide 33 H (22-30) mmol/L Anion Gap 11 mmol/L BUN 37 H (9-20) mg/dL Creatinine 6.83 H (0.66-1.25) mg/dL Est GFR (CKD-EPI)AfAm 11 (>60 ml/min/1.73 sqM) Est GFR (CKD-EPI)NonAf 10 (>60 ml/min/1.73 sqM) Glucose 250 H (74-99) mg/dL Calcium 9.1 (8.4-10.2) mg/dL Total Bilirubin 0.8 (0.2-1.3) mg/dL AST 18 (17-59) U/L ALT 25 (21-72) U/L Alkaline Phosphatase 71 (38-126) U/L Total Protein 5.8 L (6.3-8.2) g/dL Albumin 3.5 (3.5-5.0) g/dL Amylase 30 (30-110) U/L Lipase 36 (23-300) U/L Urine Color Yellow Urine Appearance Cloudy (Clear) Urine pH 7.5 (5.0-8.0) Ur Specific [place] 1.026 (1.001-1.035) Urine Protein 4+ H (Negative) Urine Glucose (UA) 4+ H (Negative) Urine Ketones 1+ H (Negative) Urine Blood Small H (Negative) Urine Nitrite Negative (Negative) Urine Bilirubin Negative (Negative) Urine Urobilinogen <2.0 (<2.0) mg/dL Ur Leukocyte Esterase Negative (Negative) Urine RBC 24 H (0-5) /hpf Urine WBC 5 (0-5) /hpf Urine Bacteria Rare H (None) /hpf Hyaline Casts 27 H (0-2) /lpf Urine Mucus Rare H (None) /hpf Urine Sperm Moderate H (None) /hpf Disposition Clinical Impression: Gastroparesis due to DM, Vomiting, Diarrhea, End stage renal disease on dialy sis Disposition: HOME SELF-CARE Condition: Good Instructions (If sedation given, give patient instructions): Diabetic Gastr oparesis (DC) Additional Instructions: Please use medication as discussed. Please follow-up with family doctor in the next 2 days. Please follow-up with Dr. Bacon next week as scheduled. Please go to dialysis today. Please return to emergency room if the symptoms increase or worsen or for any other concerns. Is patient prescribed a controlled substance at d/c from ED?: No Referrals: Sahra Hurtado MD [Primary Care Provider] - 1-2 days Gregory Bacon MD [Family Provider] - 1-2 days Time of Disposition: 14:14
[2018-06-19 14:26] LABS: Appearance,Urine Cloudy (Clear); Bacteria,Urine Rare /hpf; Bilirubin,Urine Negative (Negative); Blood,Urine Small (Negative); Color,Urine Yellow; Glucose,Urine (UA) 4+ (Negative); Hyaline Casts,Urine 27 /lpf (0-2); Ketones,Urine 1+ (Negative); Leukocyte Esterase,Urine Negative (Negative); Mucus,Urine Rare /hpf; Nitrite,Urine Negative (Negative); PH, Urine 7.5 (5.0-8.0); Protein,Urine 4+ (Negative); RBC,Urine 24 /hpf (0-5); Specific Gravity,Urine 1.026 (1.001-1.035); Sperm,Urine Moderate /hpf; Urobilinogen,Urine <2.0 mg/dL (<2.0); WBC,Urine 5 /hpf (0-5)
== END 2018-06-19 14:46 | disposition home or self-care (01) ==
LOC: EC 11:49
DX: E10.43 Type 1 diabetes mellitus with diabetic autonomic (poly)neuropathy (principal); K31.84 Gastroparesis; E10.40 Type 1 diabetes mellitus with diabetic neuropathy, unspecified; E10.22 Type 1 diabetes mellitus with diabetic chronic kidney disease; I13.2 Hypertensive heart and chronic kidney disease with heart failure and with stage 5 chronic kidney disease, or end stage renal disease; N18.6 End stage renal disease; Z99.2 Dependence on renal dialysis; K21.9 Gastro-esophageal reflux disease without esophagitis; E10.21 Type 1 diabetes mellitus with diabetic nephropathy; E10.319 Type 1 diabetes mellitus with unspecified diabetic retinopathy without macular edema; F17.200 Nicotine dependence, unspecified, uncomplicated; Z79.4 Long term (current) use of insulin; Z79.82 Long term (current) use of aspirin; Z79.899 Other long term (current) drug therapy; Z88.8 Allergy status to other drugs, medicaments and biological substances
CPT/HCPCS: 36415; 80053; 82150; 83690; 85025; 81001; 99284; 96374; 96375; 96361; J2405; J2270

== ENCOUNTER 2018-06-19 20:19 | Inpatient (IN) | payer MEDICARE, OTHER ==
[2018-06-19 20:53] LABS: Glucose,Whole Blood 86 mg/dL (75-99)
[2018-06-19] MEDS ORDERED: SODIUM CHLORIDE 0.9% 1,000 ML IV STA ×2 (20:58)
[2018-06-19] MEDS ORDERED: SODIUM CHLORIDE 0.9% 500 ML 500 ML IV STA (20:58)
[2018-06-19] MEDS ORDERED: ONDANSETRON 4 MG/2 ML VIAL IVP STA (20:58)
--- NOTE | 2018-06-19 21:42 | ED ---
Nausea/Vomiting/Diarrhea HPI - General Chief complaint: Nausea/Vomiting/Diarrhea Stated complaint: revisit vomiting Time Seen by Provider: 06/19/18 20:44 Source: patient Mode of arrival: ambulatory Limitations: no limitations - Related Data Home Medications Medication Instructions Recorded Confirmed Omeprazole 20 mg PO DAILY 08/28/17 06/19/18 Multivitamin [Multivitamins Adult 1 tab PO DAILY 11/28/17 06/19/18 Gummies] Insulin Aspart (For Pump) [NovoLOG 0.01 unit SQ-PUMP CONTINUOUS 03/20/18 06/19/18 (For Pump)] Potassium Chloride ER [K-Dur 10] 10 meq PO DAILY 03/20/18 06/19/18 Aspirin EC [Ecotrin Low Dose] 81 mg PO HS 05/18/18 06/19/18 Cetirizine HCl [Zyrtec] 10 mg PO HS 05/18/18 06/19/18 Losartan [Cozaar] 50 mg PO DAILY 05/26/18 06/19/18 amLODIPine [Norvasc] 10 mg PO DAILY 05/26/18 06/19/18 Calcium Acetate [Phoslo] 667 mg PO TID 06/19/18 06/19/18 Cyanocobalamin (Vitamin B-12) 1,000 mcg PO DAILY 06/19/18 06/19/18 [Vitamin B-12] Previous Rx's Medication Instructions Recorded Furosemide [Lasix] 80 mg PO BID@0900,1600 #60 tab 12/08/17 Prochlorperazine [Compazine] 5 mg PO Q8HR PRN #30 tab 05/28/18 Allergies Allergy/AdvReac Type Severity Reaction Status Date / Time metoclopramide [From Reglan] AdvReac ITCHY Verified 06/19/18 21:13 FEELING " Review of Systems ROS Statement: Those systems with pertinent positive or pertinent negative responses have been documented in the HPI. ROS Other: All systems not noted in ROS Statement are negative. Past Medical History Past Medical History: Heart Failure, Diabetes Mellitus, Eye Disorder, GERD/Reflux, Hyperlipidemia, Hypertension, Renal Disease Additional Past Medical History / Comment(s): IDDM type I with insulin pump, past DKA, neuropathy bilateral feet, diabetic nephropathy/ESRD with hemodialysis M/W/F pt planning to establish at [facility] for possible kidney transplant, diabetic retinopathy/bleeds bilaterally-pt has very decreased vision and some bilateral eye pain, gastroparesis with botox treatment, esophagitis, hiatal hernia, CHF once, in the past he was on a statin but since taken off. History of Any Multi-Drug Resistant Organisms: None Reported Past Surgical History: Hernia Repair Additional Past Surgical History / Comment(s): 04/2017 bilateral laser eye surgery for retinal bleeds unsuccessful, eye injections, EGD, colonoscopy, dialysis cath placed rt upper chest on 12-03-17, L inguinal hernia repair Past Anesthesia/Blood Transfusion Reactions: Postoperative Nausea & Vomiting (PONV) Additional Past Anesthesia/Blood Transfusion Reaction / Comment(s): Pt has received multiple transfusions. Past Psychological History: No Psychological Hx Reported Smoking Status: Current every day smoker Past Alcohol Use History: None Reported Past Drug Use History: None Reported - Past Family History Father Family Medical History: No Reported History Additional Family Medical History / Comment(s): Father is healthy Mother Family Medical History: No Reported History Additional Family Medical History / Comment(s): Mother is healthy. General Exam Limitations: no limitations Course Vital Signs 06/19/18 20:39 Temperature 97.9 F Pulse Rate 121 H Respiratory 24 Rate Blood Pressure 179/131 O2 Sat by Pulse 96 Oximetry Medical Decision Making - Lab Data Result diagrams: 06/19/18 21:35 06/19/18 21:35 Lab Results 06/19/18 06/19/18 06/19/18 Range/Units 20:51 21:35 21:35 WBC 6.1 (3.8-10.6) k/uL RBC 5.44 (4.30-5.90) m/uL Hgb 15.4 (13.0-17.5) gm/dL Hct 48.1 (39.0-53.0) % MCV 88.3 (80.0-100.0) fL MCH 28.2 (25.0-35.0) pg MCHC 32.0 (31.0-37.0) g/dL RDW 16.0 H (11.5-15.5) % Plt Count 112 L (150-450) k/uL Neutrophils % 73 % Lymphocytes % 19 % Monocytes % 5 % Eosinophils % 1 % Basophils % 1 % Neutrophils # 4.5 (1.3-7.7) k/uL Lymphocytes # 1.2 (1.0-4.8) k/uL Monocytes # 0.3 (0-1.0) k/uL Eosinophils # 0.1 (0-0.7) k/uL Basophils # 0.0 (0-0.2) k/uL Hypochromasia Slight Poikilocytosis Moderate Anisocytosis Slight PT (9.0-12.0) sec INR (<1.2) APTT (22.0-30.0) sec Sodium 135 L (137-145) mmol/L Potassium 4.1 (3.5-5.1) mmol/L Chloride 96 L (98-107) mmol/L Carbon Dioxide 30 (22-30) mmol/L Anion Gap 9 mmol/L BUN 10 (9-20) mg/dL Creatinine 3.00 H (0.66-1.25) mg/dL Est GFR (CKD-EPI)AfAm 30 (>60 ml/min/1.73 sqM) Est GFR (CKD-EPI)NonAf 26 (>60 ml/min/1.73 sqM) Glucose 85 (74-99) mg/dL POC Glucose (mg/dL) 86 (75-99) mg/dL POC Glu Reproduction Technician ID Jerilyn Ward Plasma Lactic Acid [place] (0.7-2.0) mmol/L Calcium 9.2 (8.4-10.2) mg/dL Phosphorus 3.7 (2.5-4.5) mg/dL Magnesium 1.9 (1.6-2.3) mg/dL Total Bilirubin 1.0 (0.2-1.3) mg/dL AST 35 (17-59) U/L ALT 22 (21-72) U/L Alkaline Phosphatase 89 (38-126) U/L Troponin I (0.000-0.034) ng/mL Total Protein 7.3 (6.3-8.2) g/dL Albumin 4.3 (3.5-5.0) g/dL 06/19/18 06/19/18 06/19/18 Range/Units 21:35 21:35 21:35 WBC (3.8-10.6) k/uL RBC (4.30-5.90) m/uL Hgb (13.0-17.5) gm/dL Hct (39.0-53.0) % MCV (80.0-100.0) fL MCH (25.0-35.0) pg MCHC (31.0-37.0) g/dL RDW (11.5-15.5) % Plt Count (150-450) k/uL Neutrophils % % Lymphocytes % % Monocytes % % Eosinophils % % Basophils % % Neutrophils # (1.3-7.7) k/uL Lymphocytes # (1.0-4.8) k/uL Monocytes # (0-1.0) k/uL Eosinophils # (0-0.7) k/uL Basophils # (0-0.2) k/uL Hypochromasia Poikilocytosis Anisocytosis PT 9.8 (9.0-12.0) sec INR 0.9 (<1.2) APTT 23.3 (22.0-30.0) sec Sodium (137-145) mmol/L Potassium (3.5-5.1) mmol/L Chloride (98-107) mmol/L Carbon Dioxide (22-30) mmol/L Anion Gap mmol/L BUN (9-20) mg/dL Creatinine (0.66-1.25) mg/dL Est GFR (CKD-EPI)AfAm (>60 ml/min/1.73 sqM) Est GFR (CKD-EPI)NonAf (>60 ml/min/1.73 sqM) Glucose (74-99) mg/dL POC Glucose (mg/dL) (75-99) mg/dL POC Glu Reproduction Technician ID Plasma Lactic Acid [place] 1.0 (0.7-2.0) mmol/L Calcium (8.4-10.2) mg/dL Phosphorus (2.5-4.5) mg/dL Magnesium (1.6-2.3) mg/dL Total Bilirubin (0.2-1.3) mg/dL AST (17-59) U/L ALT (21-72) U/L Alkaline Phosphatase (38-126) U/L Troponin I 0.013 (0.000-0.034) ng/mL Total Protein (6.3-8.2) g/dL Albumin (3.5-5.0) g/dL 06/19/18 Range/Units 22:14 WBC (3.8-10.6) k/uL RBC (4.30-5.90) m/uL Hgb (13.0-17.5) gm/dL Hct (39.0-53.0) % MCV (80.0-100.0) fL MCH (25.0-35.0) pg MCHC (31.0-37.0) g/dL RDW (11.5-15.5) % Plt Count (150-450) k/uL Neutrophils % % Lymphocytes % % Monocytes % % Eosinophils % % Basophils % % Neutrophils # (1.3-7.7) k/uL Lymphocytes # (1.0-4.8) k/uL Monocytes # (0-1.0) k/uL Eosinophils # (0-0.7) k/uL Basophils # (0-0.2) k/uL Hypochromasia Poikilocytosis Anisocytosis PT (9.0-12.0) sec INR (<1.2) APTT (22.0-30.0) sec Sodium (137-145) mmol/L Potassium (3.5-5.1) mmol/L Chloride (98-107) mmol/L Carbon Dioxide (22-30) mmol/L Anion Gap mmol/L BUN (9-20) mg/dL Creatinine (0.66-1.25) mg/dL Est GFR (CKD-EPI)AfAm (>60 ml/min/1.73 sqM) Est GFR (CKD-EPI)NonAf (>60 ml/min/1.73 sqM) Glucose (74-99) mg/dL POC Glucose (mg/dL) 85 (75-99) mg/dL POC Glu Reproduction Technician ID Jerilyn Ward Plasma Lactic Acid [place] (0.7-2.0) mmol/L Calcium (8.4-10.2) mg/dL Phosphorus (2.5-4.5) mg/dL Magnesium (1.6-2.3) mg/dL Total Bilirubin (0.2-1.3) mg/dL AST (17-59) U/L ALT (21-72) U/L Alkaline Phosphatase (38-126) U/L Troponin I (0.000-0.034) ng/mL Total Protein (6.3-8.2) g/dL Albumin (3.5-5.0) g/dL - EKG Data -: EKG Interpreted by Me (EKG shows sinus rhythm rate of 88, SD 142, QRS 74, QTc 452) Disposition Clinical Impression: Nausea & vomiting, Hypertension, uncontrolled, Dehydration, Gastroparesis due to DM, Vomiting Disposition: ADMITTED IP TO THIS HOSP Condition: Fair Is patient prescribed a controlled substance at d/c from ED?: No Referrals: Sahra Hurtado MD [Primary Care Provider] - 1-2 days
[2018-06-19 21:55] LABS: Anisocytosis Slight; Basophils % (A) 1 %; Eosinophils # (A) 0.1 k/uL (0-0.7); Eosinophils % (A) 1 %; HCT 48.1 % (39.0-53.0); HGB 15.4 gm/dL (13.0-17.5); Hypochromasia Slight; Lymphocytes # (A) 1.2 k/uL (1.0-4.8); Lymphocytes % (A) 19 %; MCH 28.2 pg (25.0-35.0); MCV 88.3 fL (80.0-100.0); Mean Platelet Volume 8.2; Monocytes # (A) 0.3 k/uL (0-1.0); Monocytes % (A) 5 %; Neutrophils # (A) 4.5 k/uL (1.3-7.7); Neutrophils % (A) 73 %; Platelet Count 112 k/uL (150-450); Poikilocytosis Moderate; RBC 5.44 m/uL (4.30-5.90); WBC 6.1 k/uL (3.8-10.6)
[2018-06-19 22:07] LABS: INR 0.9 (<1.2); Partial Thromboplastin Time 23.3 sec (22.0-30.0); Prothrombin Time 9.8 sec (9.0-12.0)
[2018-06-19 22:11] LABS: Albumin 4.3 g/dL (3.5-5.0); Calcium 9.2 mg/dL (8.4-10.2); Magnesium 1.9 mg/dL (1.6-2.3); Phosphorus 3.7 mg/dL (2.5-4.5); Potassium 4.1 mmol/L (3.5-5.1); Total Protein 7.3 g/dL (6.3-8.2)
[2018-06-19 22:16] LABS: Glucose,Whole Blood 85 mg/dL (75-99)
[2018-06-19] MEDS ORDERED: MORPHINE SULFATE 4 MG/ML SYRINGE IVP PRN (22:26)
[2018-06-19] MEDS ORDERED: ONDANSETRON 4 MG/2 ML VIAL IVP PRN (22:26)
[2018-06-19] MEDS ORDERED: LABETALOL SYRINGE 5 MG/ML IVP STA (22:27)
[2018-06-19] MEDS ORDERED: hydrALAZINE HCL 20 MG/ML 1 ML VIAL IVP PRN (22:27)
[2018-06-20 00:27] LABS: Glucose,Whole Blood 201 mg/dL (75-99)
[2018-06-20 01:17] VITALS: BMI 19.5
[2018-06-20] MEDS ORDERED: INSULIN ASPART (NovoLOG) 100 UNIT/ML VIAL SQ PRN (01:55)
[2018-06-20] MEDS ORDERED: INSULIN PUMP BASAL RATES 1 EACH MISC MISCELLANE PRN (01:55)
[2018-06-20] MEDS ORDERED: INSPUCOR MISCELLANE PRN (01:55)
[2018-06-20] MEDS ORDERED: Insulin Aspart (For Pump) 100 UNIT/ML VIAL SQ-PUMP SCH (02:00)
[2018-06-20] MEDS ORDERED: TRIMETHOBENZAMIDE 100 MG/ML 2 ML VIAL IM PRN (02:04)
[2018-06-20 07:31] LABS: Glucose,Whole Blood 181 mg/dL (75-99)
[2018-06-20] MEDS: hydrALAZINE HCL 20 MG/ML 1 ML VIAL IVP PRN (08:22)
[2018-06-20] MEDS: INSULIN PUMP MEAL BOLUS 1 UNIT MISC MISCELLANE SCH ×4 (08:32→21:05)
[2018-06-20] MEDS ORDERED: PANTOPRAZOLE 40 MG/10 ML VIAL IVP SCH (09:00)
[2018-06-20] MEDS ORDERED: NON-FORMULARY DRUG (Omeprazole [Omeprazole] 20 MG) PO SCH (09:00)
[2018-06-20] MEDS: LOSARTAN 50 MG TAB PO SCH (11:26)
[2018-06-20] MEDS: CALCIUM ACETATE 667 MG CAP PO SCH ×3 (11:26→22:27)
[2018-06-20] MEDS: amLODIPine 10 MG TAB PO SCH (11:26)
[2018-06-20] MEDS: MULTIVITAMINS, THERA 1 EACH TAB PO SCH (11:27)
[2018-06-20] MEDS: CYANOCOBALAMIN 500 MCG TAB PO SCH (11:27)
[2018-06-20 11:56] LABS: Glucose,Whole Blood 183 mg/dL (75-99)
--- NOTE | 2018-06-20 12:34 | P.DS ---
Providers Date of admission: 06/19/18 22:26 Attending physician: Anil Haji Primary care physician: Sahra Hurtado [facility] Course: Please refer to my HPI for further details Patient Condition at Discharge: Fair Plan - Discharge Summary Discharge Rx Participant: No New Discharge Prescriptions: New Erythromycin [Calr-Tab] 250 mg PO Q6HR PRN #30 tablet PRN Reason: Nausea And Vomiting Continue Omeprazole 20 mg PO DAILY Multivitamin [Multivitamins Adult Gummies] 1 tab PO DAILY Furosemide [Lasix] 80 mg PO BID@0900,1600 #60 tab Potassium Chloride ER [K-Dur 10] 10 meq PO DAILY Insulin Aspart (For Pump) [NovoLOG (For Pump)] 0.01 unit SQ-PUMP CONTINUOUS Cetirizine HCl [Zyrtec] 10 mg PO HS Aspirin EC [Ecotrin Low Dose] 81 mg PO HS amLODIPine [Norvasc] 10 mg PO DAILY Losartan [Cozaar] 50 mg PO DAILY Prochlorperazine [Compazine] 5 mg PO Q8HR PRN #30 tab PRN Reason: Nausea And Vomiting Cyanocobalamin (Vitamin B-12) [Vitamin B-12] 1,000 mcg PO DAILY Calcium Acetate [PhosLo] 667 mg PO TID Discharge Medication List Omeprazole 20 mg PO DAILY 08/28/17 [History] Multivitamin [Multivitamins Adult Gummies] 1 tab PO DAILY 11/28/17 [History] Furosemide [Lasix] 80 mg PO BID@0900,1600 #60 tab 12/08/17 [Rx] Insulin Aspart (For Pump) [NovoLOG (For Pump)] 0.01 unit SQ-PUMP CONTINUOUS 03/20/18 [History] Potassium Chloride ER [K-Dur 10] 10 meq PO DAILY 03/20/18 [History] Aspirin EC [Ecotrin Low Dose] 81 mg PO HS 05/18/18 [History] Cetirizine HCl [Zyrtec] 10 mg PO HS 05/18/18 [History] Losartan [Cozaar] 50 mg PO DAILY 05/26/18 [History] amLODIPine [Norvasc] 10 mg PO DAILY 05/26/18 [History] Prochlorperazine [Compazine] 5 mg PO Q8HR PRN #30 tab 05/28/18 [Rx] Calcium Acetate [PhosLo] 667 mg PO TID 06/19/18 [History] Cyanocobalamin (Vitamin B-12) [Vitamin B-12] 1,000 mcg PO DAILY 06/19/18 [History] Erythromycin [Carl-Tab] 250 mg PO Q6HR PRN #30 tablet 06/20/18 [Rx] Follow up Appointment(s)/Referral(s): Sahra Hurtado MD [Primary Care Provider] - 3 Days Discharge Disposition: HOME SELF-CARE
--- NOTE | 2018-06-20 12:34 | P.HPIM ---
History of Present Illness 32-year-old male with known history of gastro paresis came in with nausea vomiting, which improved now with symptomatic Management and patient was started on diet and advance her diet. Patient has history of type 1 diabetes mellitus and end-stage renal disease secondary to diabetes mellitus patient does have diabetic retinopathy neuropathy. Patient blood pressure is highly elevated as he is unable to take any of his medications. Since he is able to take by mouth diet will start him on his medications if he is able to tolerate at least a full liquid diet patient will be discharged today. Patient didn't tolerate Reglan in the past will use erythromycin as a promotility agent. Review of Systems REVIEW OF SYSTEMS: CONSTITUTIONAL: No fever, no malaise, no fatigue. HEENT: No recent visual problems or hearing problems. Denied any sore throat. CARDIOVASCULAR: No chest pain, orthopnea, PND, no palpitations, no syncope. PULMONARY: No shortness of breath, no cough, no hemoptysis. GASTROINTESTINAL: As mentioned in HPI NEUROLOGICAL: No headaches, no weakness, no numbness. HEMATOLOGICAL: Denies any bleeding or petechiae. GENITOURINARY: Denies any burning micturition, frequency, or urgency. MUSCULOSKELETAL/RHEUMATOLOGICAL: Denies any joint pain, swelling, or any muscle pain. ENDOCRINE: Denies any polyuria or polydipsia. The rest of the 14-point review of systems is negative. Past Medical History Past Medical History: Diabetes Mellitus, Eye Disorder, GERD/Reflux, Hyperlipidemia, Hypertension, Renal Disease Additional Past Medical History / Comment(s): IDDM type I with insulin pump, past DKA, neuropathy bilateral feet, diabetic nephropathy/ESRD with hemodialysis M/W/F pt planning to establish at [facility] for possible kidney transplant, diabetic retinopathy/bleeds bilaterally-pt has very decreased vision and some bilateral eye pain, gastroparesis with botox treatment, esophagitis, hiatal hernia, CHF once, in the past he was on a statin but since taken off. History of Any Multi-Drug Resistant Organisms: None Reported Past Surgical History: Hernia Repair Additional Past Surgical History / Comment(s): 04/2017 bilateral laser eye partha richie for retinal bleeds unsuccessful, eye injections, EGD, colonoscopy, dialysis cath placed rt upper chest on 12-03-17, L inguinal hernia repair Past Anesthesia/Blood Transfusion Reactions: Postoperative Nausea & Vomiting (PONV) Additional Past Anesthesia/Blood Transfusion Reaction / Comment(s): Pt has received multiple transfusions. Past Psychological History: No Psychological Hx Reported Additional Psychological History / Comment(s): Pt resides with his spouse. Pt has very poor vision. His spouse assists him as much as she can. She organizes his medication. He uses glasses and a magnifier on his cell phone to read. He no longer drives, spouse takes to appts. They have 3 cats. He is disabled. Smoking Status: Former smoker Past Alcohol Use History: None Reported Additional Past Alcohol Use History / Comment(s): started smoking AT AGE 18 smoked 1 ppd cut down 1/4 PPD . TRYING TO QUIT. Quit smoking on Friday Past Drug Use History: None Reported Additional Drug Use History / Comment(s): rare use of cbd oil - Past Family History Father Family Medical History: No Reported History Additional Family Medical History / Comment(s): Father is healthy Mother Family Medical History: No Reported History Additional Family Medical History / Comment(s): Mother is healthy. Medications and Allergies Home Medications Medication Instructions Recorded Confirmed Type Omeprazole 20 mg PO DAILY 08/28/17 06/19/18 History Multivitamin [Multivitamins Adult 1 tab PO DAILY 11/28/17 06/19/18 History Gummies] Furosemide [Lasix] 80 mg PO BID@0900,1600 #60 tab 12/08/17 06/19/18 Rx Insulin Aspart (For Pump) [NovoLOG 0.01 unit SQ-PUMP CONTINUOUS 03/20/18 06/19/18 History (For Pump)] Potassium Chloride ER [K-Dur 10] 10 meq PO DAILY 03/20/18 06/19/18 History Aspirin EC [Ecotrin Low Dose] 81 mg PO HS 05/18/18 06/19/18 History Cetirizine HCl [Zyrtec] 10 mg PO HS 05/18/18 06/19/18 History Losartan [Cozaar] 50 mg PO DAILY 05/26/18 06/19/18 History amLODIPine [Norvasc] 10 mg PO DAILY 05/26/18 06/19/18 History Prochlorperazine [Compazine] 5 mg PO Q8HR PRN #30 tab 05/28/18 06/19/18 Rx Calcium Acetate [PhosLo] 667 mg PO TID 06/19/18 06/19/18 History Cyanocobalamin (Vitamin B-12) 1,000 mcg PO DAILY 06/19/18 06/19/18 History [Vitamin B-12] Erythromycin [Carl-Tab] 250 mg PO Q6HR PRN #30 tablet 06/20/18 Rx Allergies Allergy/AdvReac Type Severity Reaction Status Date / Time metoclopramide [From Reglan] AdvReac ITCHY Verified 06/19/18 21:13 FEELING " Physical Exam Vitals: Vital Signs Temp Pulse Pulse Resp BP BP BP 06/20/18 10:35 105 H 191/109 06/20/18 09:45 99 182/93 06/20/18 09:10 104 H 166/94 06/20/18 07:42 98.8 F 101 H 18 202/115 204/110 06/20/18 03:50 18 06/20/18 00:56 98.5 F 96 17 154/78 06/20/18 00:35 98.2 F 78 18 06/20/18 00:28 98.5 F 96 18 154/78 06/20/18 00:22 87 19 130/86 06/19/18 23:36 89 132/70 06/19/18 23:00 85 19 136/73 06/19/18 22:39 80 18 196/115 06/19/18 21:45 79 18 209/146 06/19/18 20:39 97.9 F 121 H 24 179/131 Pulse Ox 06/20/18 10:35 06/20/18 09:45 06/20/18 09:10 06/20/18 07:42 97 06/20/18 03:50 06/20/18 00:56 97 06/20/18 00:35 06/20/18 00:28 96 06/20/18 00:22 97 06/19/18 23:36 06/19/18 23:00 06/19/18 22:39 06/19/18 21:45 06/19/18 20:39 96 Intake and Output 06/19/18 06/20/18 06/20/18 22:59 06:59 14:59 Other: Weight 63.503 kg PHYSICAL EXAMINATION: GENERAL: The patient is alert and oriented x3, not in any acute distress. Thin built HEENT: Pupils are round and equally reacting to light. EOMI. No scleral icterus. No conjunctival pallor. Normocephalic, atraumatic. No pharyngeal erythema. No thyromegaly. CARDIOVASCULAR: S1 and S2 present. No murmurs, rubs, or gallops. PULMONARY: Chest is clear to auscultation, no wheezing or crackles. ABDOMEN: Soft, nontender, nondistended, normoactive bowel sounds. No palpable organomegaly. MUSCULOSKELETAL: No joint swelling or deformity. EXTREMITIES: No cyanosis, clubbing, or pedal edema. NEUROLOGICAL: Gross neurological examination did not reveal any focal deficits. SKIN: No rashes. Results CBC & Chem 7: 06/19/18 21:35 06/19/18 21:35 Labs: Abnormal Lab Results - Last 24 Hours (Table) 06/19/18 06/19/18 06/20/18 Range/Units 21:35 21:35 00:25 RDW 16.0 H (11.5-15.5) % Plt Count 112 L (150-450) k/uL Sodium 135 L (137-145) mmol/L Chloride 96 L (98-107) mmol/L Creatinine 3.00 H (0.66-1.25) mg/dL POC Glucose (mg/dL) 201 H (75-99) mg/dL 06/20/18 06/20/18 Range/Units 07:15 11:44 RDW (11.5-15.5) % Plt Count (150-450) k/uL Sodium (137-145) mmol/L Chloride (98-107) mmol/L Creatinine (0.66-1.25) mg/dL POC Glucose (mg/dL) 181 H 183 H (75-99) mg/dL Thrombosis Risk Factor Assmnt - Choose All That Apply Each Factor Represents 1 point: Age 41-60 years Thrombosis Risk Factor Assessment Total Risk Factor Score: 1 Thrombosis Risk Factor Assessment Level: Low Risk Assessment and Plan Plan: -Nausea vomiting secondary to gastroparesis symptoms are improving and patient will be started on diet advance her diet if patient is doing well patient will be discharged today. Accelerated hypertension and hypertensive urgency: Seconded as patient cannot tolerate by mouth medications will resume his by mouth medications will monitor his blood pressure -End-stage renal disease secondary to diabetic nephropathy patient is Friday hemodialysis schedule, IV fluids will be discontinued. -Metabolic bone disease secondary to end-stage renal disease continue with phosphate binders -Type 1 diabetes mellitus blood sugars are well controlled with his insulin pump patient will continue the thumb Gastroesophageal reflux disease -Hyperlipidemia -Diabetic peripheral neuropathy and nephropathy and retinopathy
[2018-06-20] MEDS: FUROSEMIDE 80 MG TAB PO SCH ×2 (14:05→17:37)
[2018-06-20] MEDS: ERYTHROMYCIN ORAL SUSP 8,000 MG/100 ML BOTTLE PO PRN ×2 (14:10→22:27)
[2018-06-20 17:04] LABS: Glucose,Whole Blood 173 mg/dL (75-99)
[2018-06-20 17:51] LABS: Appearance,Urine Clear (Clear); Bilirubin,Urine Negative (Negative); Blood,Urine Small (Negative); Color,Urine Yellow; Glucose,Urine (UA) 4+ (Negative); Hyaline Casts,Urine 43 /lpf (0-2); Ketones,Urine 1+ (Negative); Leukocyte Esterase,Urine Negative (Negative); Mucus,Urine Rare /hpf; Nitrite,Urine Negative (Negative); PH, Urine 7.5 (5.0-8.0); Protein,Urine 3+ (Negative); RBC,Urine 6 /hpf (0-5); Specific Gravity,Urine 1.023 (1.001-1.035); Sperm,Urine Few /hpf; Urobilinogen,Urine <2.0 mg/dL (<2.0); WBC,Urine 15 /hpf (0-5)
[2018-06-20] MEDS ORDERED: LORATADINE 10 MG TAB PO SCH (21:00)
[2018-06-20] MEDS ORDERED: ASPIRIN 81 MG PO SCH (21:00)
[2018-06-20 21:16] LABS: Glucose,Whole Blood 148 mg/dL (75-99)
[2018-06-21 03:47] LABS: Glucose,Whole Blood 75 mg/dL (75-99)
[2018-06-21 04:19] LABS: Glucose,Whole Blood 73 mg/dL (75-99)
[2018-06-21 04:44] LABS: Glucose,Whole Blood 123 mg/dL (75-99)
[2018-06-21 07:11] LABS: Glucose,Whole Blood 123 mg/dL (75-99)
[2018-06-21] MEDS ORDERED: PANTOPRAZOLE 40 MG TABLET PO SCH (07:30)
[2018-06-21 08:02] VITALS: RESP 16; TEMP 98.3
[2018-06-21] MEDS: INSULIN PUMP MEAL BOLUS 1 UNIT MISC MISCELLANE SCH (08:07)
[2018-06-21] MEDS: LOSARTAN 50 MG TAB PO SCH (08:08)
[2018-06-21] MEDS: CYANOCOBALAMIN 500 MCG TAB PO SCH (08:08)
[2018-06-21] MEDS: CALCIUM ACETATE 667 MG CAP PO SCH (08:08)
[2018-06-21] MEDS: hydrALAZINE HCL 20 MG/ML 1 ML VIAL IVP PRN (08:08)
[2018-06-21] MEDS: amLODIPine 10 MG TAB PO SCH (08:09)
[2018-06-21] MEDS: MULTIVITAMINS, THERA 1 EACH TAB PO SCH (08:09)
[2018-06-21] MEDS: FUROSEMIDE 80 MG TAB PO SCH (08:09)
[2018-06-21 10:16] VITALS: BP 160/94; PULSE 93
--- NOTE | 2018-06-21 10:55 | P.DS ---
Providers Date of admission: 06/19/18 22:26 Attending physician: Anil Haji Primary care physician: Sahra Hurtado [facility] Course: 32-year-old admitted for nausea vomiting secondary to gastroparesis. Improved now patient will be discharged today patient was also treated fax related hypertension. PHYSICAL EXAMINATION: GENERAL: The patient is alert and oriented x3, not in any acute distress. Thin built HEENT: Pupils are round and equally reacting to light. EOMI. No scleral icterus. No conjunctival pallor. Normocephalic, atraumatic. No pharyngeal erythema. No thyromegaly. CARDIOVASCULAR: S1 and S2 present. No murmurs, rubs, or gallops. PULMONARY: Chest is clear to auscultation, no wheezing or crackles. ABDOMEN: Soft, nontender, nondistended, normoactive bowel sounds. No palpable organomegaly. MUSCULOSKELETAL: No joint swelling or deformity. EXTREMITIES: No cyanosis, clubbing, or pedal edema. NEUROLOGICAL: Gross neurological examination did not reveal any focal deficits. SKIN: No rashes. Please of her dementia from yesterday for further details of hospitalization course and the chronic medical issues that were addressed during this hospitalization Patient Condition at Discharge: Fair Plan - Discharge Summary Discharge Rx Participant: No New Discharge Prescriptions: New Erythromycin [Carl-Tab] 250 mg PO Q6HR PRN #30 tablet PRN Reason: Nausea And Vomiting Continue Omeprazole 20 mg PO DAILY Multivitamin [Multivitamins Adult Gummies] 1 tab PO DAILY Furosemide [Lasix] 80 mg PO BID@0900,1600 #60 tab Potassium Chloride ER [K-Dur 10] 10 meq PO DAILY Insulin Aspart (For Pump) [NovoLOG (For Pump)] 0.01 unit SQ-PUMP CONTINUOUS Cetirizine HCl [Zyrtec] 10 mg PO HS Aspirin EC [Ecotrin Low Dose] 81 mg PO HS amLODIPine [Norvasc] 10 mg PO DAILY Losartan [Cozaar] 50 mg PO DAILY Prochlorperazine [Compazine] 5 mg PO Q8HR PRN #30 tab PRN Reason: Nausea And Vomiting Cyanocobalamin (Vitamin B-12) [Vitamin B-12] 1,000 mcg PO DAILY Calcium Acetate [PhosLo] 667 mg PO TID Discharge Medication List Omeprazole 20 mg PO DAILY 08/28/17 [History] Multivitamin [Multivitamins Adult Gummies] 1 tab PO DAILY 11/28/17 [History] Furosemide [Lasix] 80 mg PO BID@0900,1600 #60 tab 12/08/17 [Rx] Insulin Aspart (For Pump) [NovoLOG (For Pump)] 0.01 unit SQ-PUMP CONTINUOUS 03/20/18 [History] Potassium Chloride ER [K-Dur 10] 10 meq PO DAILY 03/20/18 [History] Aspirin EC [Ecotrin Low Dose] 81 mg PO HS 05/18/18 [History] Cetirizine HCl [Zyrtec] 10 mg PO HS 05/18/18 [History] Losartan [Cozaar] 50 mg PO DAILY 05/26/18 [History] amLODIPine [Norvasc] 10 mg PO DAILY 05/26/18 [History] Prochlorperazine [Compazine] 5 mg PO Q8HR PRN #30 tab 05/28/18 [Rx] Calcium Acetate [PhosLo] 667 mg PO TID 06/19/18 [History] Cyanocobalamin (Vitamin B-12) [Vitamin B-12] 1,000 mcg PO DAILY 06/19/18 [History] Erythromycin [Carl-Tab] 250 mg PO Q6HR PRN #30 tablet 06/20/18 [Rx] Follow up Appointment(s)/Referral(s): Sahra Hurtado MD [Primary Care Provider] - 3 Days Patient Instructions/Handouts: Acute Nausea and Vomiting (DC) Discharge Disposition: HOME SELF-CARE
== END 2018-06-21 10:40 | disposition home or self-care (01) | DRG 73 ==
LOC: EC 20:19 → 4SSUR 22:26
PROVIDERS: ADMIT Hospitalist; ATTEND Hospitalist
DX: E10.43 Type 1 diabetes mellitus with diabetic autonomic (poly)neuropathy (principal); N18.6 End stage renal disease; I13.11 Hypertensive heart and chronic kidney disease without heart failure, with stage 5 chronic kidney disease, or end stage renal disease; K31.84 Gastroparesis; Z79.4 Long term (current) use of insulin; Z96.41 Presence of insulin pump (external) (internal); E10.22 Type 1 diabetes mellitus with diabetic chronic kidney disease; E10.319 Type 1 diabetes mellitus with unspecified diabetic retinopathy without macular edema; E10.42 Type 1 diabetes mellitus with diabetic polyneuropathy; E78.5 Hyperlipidemia, unspecified; E86.0 Dehydration; E88.89 Other specified metabolic disorders; F17.210 Nicotine dependence, cigarettes, uncomplicated; H54.7 Unspecified visual loss; I16.0 Hypertensive urgency; Z99.2 Dependence on renal dialysis; K21.9 Gastro-esophageal reflux disease without esophagitis; Z79.899 Other long term (current) drug therapy; K21.0 Gastro-esophageal reflux disease with esophagitis; K44.9 Diaphragmatic hernia without obstruction or gangrene; Z88.8 Allergy status to other drugs, medicaments and biological substances
CPT/HCPCS: 36415; 80053; 81001; 83605; 83735; 84100; 84484; 85025; 85610; 85730; 87086; 93005; 96361; 96374; 96375; 99285

== ENCOUNTER 2018-06-26 13:43 | Observation (INO) | payer MEDICARE, OTHER ==
[2018-06-26] MEDS ORDERED: SODIUM CHLORIDE 0.9% 1,000 ML IV STA (13:57)
[2018-06-26] MEDS ORDERED: ONDANSETRON 4 MG/2 ML VIAL IVP STA (13:57)
[2018-06-26] MEDS ORDERED: DICYCLOMINE 10 MG/ML 2 ML AMP IM STA (13:58)
[2018-06-26] MEDS ORDERED: diphenhydrAMINE 50 MG/ML 1 ML VIAL IVP STA (13:58)
--- NOTE | 2018-06-26 14:00 | ED ---
Nausea/Vomiting/Diarrhea HPI - General Chief complaint: Nausea/Vomiting/Diarrhea Stated complaint: Vomiting abd pain Time Seen by Provider: 06/26/18 13:57 Source: patient, RN notes reviewed, old records reviewed Mode of arrival: wheelchair Limitations: no limitations - History of Present Illness Initial comments: This is a 30-year-old male well-known to this ER for evaluation. Patient comes in for evaluation of intractable nausea vomiting abdominal pain, history of severe gastroparesis renal failure. states he feels terrible, he was discharged hospital on Friday has gotten progressively worse since being home. Patient is currently actively vomiting. No fevers. MD complaint: nausea, vomiting -: days(s) Description of Vomiting: food contents, watery Associated Abdominal Pain: Yes Location: diffuse Radiation: none Severity: moderate Severity scale (1-10): 6 Quality: aching Consistency: constant Improves with: none Worsens with: none Associated Symptoms: myalgias, loss of appetite, malaise, nausea/vomiting, w eakness - Related Data Home Medications Medication Instructions Recorded Confirmed Omeprazole 20 mg PO DAILY 08/28/17 06/26/18 Multivitamin [Multivitamins Adult 1 tab PO DAILY 11/28/17 06/26/18 Gummies] Insulin Aspart (For Pump) [NovoLOG 0.01 unit SQ-PUMP CONTINUOUS 03/20/18 06/26/18 (For Pump)] Potassium Chloride ER [K-Dur 10] 10 meq PO DAILY 03/20/18 06/26/18 Aspirin EC [Ecotrin Low Dose] 81 mg PO HS 05/18/18 06/26/18 Cetirizine HCl [Zyrtec] 10 mg PO HS 05/18/18 06/26/18 Losartan [Cozaar] 50 mg PO DAILY 05/26/18 06/26/18 amLODIPine [Norvasc] 10 mg PO DAILY 05/26/18 06/26/18 Calcium Acetate [PhosLo] 667 mg PO TID 06/19/18 06/26/18 Cyanocobalamin (Vitamin B-12) 1,000 mcg PO DAILY 06/19/18 06/26/18 [Vitamin B-12] Previous Rx's Medication Instructions Recorded Furosemide [Lasix] 80 mg PO BID@0900,1600 #60 tab 12/08/17 Prochlorperazine [Compazine] 5 mg PO Q8HR PRN #30 tab 05/28/18 Allergies Allergy/AdvReac Type Severity Reaction Status Date / Time metoclopramide [From Reglan] Allergy ITCHY Verified 06/26/18 14:02 FEELING " Review of Systems ROS Statement: Those systems with pertinent positive or pertinent negative responses have been documented in the HPI. ROS Other: All systems not noted in ROS Statement are negative. Past Medical History Past Medical History: Diabetes Mellitus, Eye Disorder, GERD/Reflux, Hyperlipidemia, Hypertension, Renal Disease Additional Past Medical History / Comment(s): IDDM type I with insulin pump, past DKA, neuropathy bilateral feet, diabetic nephropathy/ESRD with hemodialysis M/W/F pt planning to establish at [facility] for possible kidney transplant, diabetic retinopathy/bleeds bilaterally-pt has very decreased vision and some bilateral eye pain, gastroparesis with botox treatment, esophagitis, hiatal hernia, CHF once, in the past he was on a statin but since taken off. History of Any Multi-Drug Resistant Organisms: None Reported Past Surgical History: Hernia Repair Additional Past Surgical History / Comment(s): 04/2017 bilateral laser eye surgery for retinal bleeds unsuccessful, eye injections, EGD, colonoscopy, dialysis cath placed rt upper chest on 12-03-17, L inguinal hernia repair Past Anesthesia/Blood Transfusion Reactions: Postoperative Nausea & Vomiting (PONV) Additional Past Anesthesia/Blood Transfusion Reaction / Comment(s): Pt has received multiple transfusions. Past Psychological History: No Psychological Hx Reported Smoking Status: Former smoker Past Alcohol Use History: None Reported Past Drug Use History: None Reported - Past Family History Father Family Medical History: No Reported History Additional Family Medical History / Comment(s): Father is healthy Mother Family Medical History: No Reported History Additional Family Medical History / Comment(s): Mother is healthy. General Exam Limitations: no limitations General appearance: alert, in no apparent distress Head exam: Present: atraumatic, normocephalic, normal inspection Eye exam: Present: normal appearance, PERRL, EOMI. Absent: scleral icterus, conjunctival injection, periorbital swelling ENT exam: Present: normal exam, mucous membranes moist Neck exam: Present: normal inspection. Absent: tenderness, meningismus, lymphadenopathy Respiratory exam: Present: normal lung sounds bilaterally. Absent: respiratory distress, wheezes, rales, rhonchi, stridor Cardiovascular Exam: Present: regular rate, normal rhythm, normal heart sounds. Absent: systolic murmur, diastolic murmur, rubs, gallop, clicks GI/Abdominal exam: Present: soft, normal bowel sounds. Absent: distended, tenderness, guarding, rebound, rigid Extremities exam: Present: normal inspection, full ROM, normal capillary refill. Absent: tenderness, pedal edema, joint swelling, calf tenderness Back exam: Present: normal inspection Neurological exam: Present: alert, oriented X3, CN II-XII intact Psychiatric exam: Present: normal affect, normal mood Skin exam: Present: warm, dry, intact, normal color. Absent: rash Course Vital Signs 06/26/18 06/26/18 13:51 16:20 Temperature 98.0 F 98.5 F Pulse Rate 98 102 H Respiratory 16 16 Rate Blood Pressure 148/102 O2 Sat by Pulse 98 99 Oximetry - Reevaluation(s) Reevaluation #1: 06/26/18 17:10 Record reviewed as well as recent ER visit and inpatient hospitalization. Medical Decision Making - Medical Decision Making 30 male the ER with intractable nausea vomiting. Patient be admitted for fluid resuscitation. Patient will be placed on symptomatic therapy. Nephrology consult - Lab Data Result diagrams: 06/26/18 14:09 06/26/18 14:09 Lab Results 06/26/18 06/26/18 Range/Units 14:09 14:09 WBC 9.7 (3.8-10.6) k/uL RBC 5.24 (4.30-5.90) m/uL Hgb 14.8 (13.0-17.5) gm/dL Hct 44.8 (39.0-53.0) % MCV 85.4 (80.0-100.0) fL MCH 28.2 (25.0-35.0) pg MCHC 33.1 (31.0-37.0) g/dL RDW 14.2 (11.5-15.5) % Plt Count 116 L (150-450) k/uL Neutrophils % 82 % Lymphocytes % 11 % Monocytes % 4 % Eosinophils % 1 % Basophils % 0 % Neutrophils # 7.9 H (1.3-7.7) k/uL Lymphocytes # 1.0 (1.0-4.8) k/uL Monocytes # 0.4 (0-1.0) k/uL Eosinophils # 0.1 (0-0.7) k/uL Basophils # 0.0 (0-0.2) k/uL Poikilocytosis Slight Sodium 137 (137-145) mmol/L Potassium 3.9 (3.5-5.1) mmol/L Chloride 98 (98-107) mmol/L Carbon Dioxide 28 (22-30) mmol/L Anion Gap 11 mmol/L BUN 32 H (9-20) mg/dL Creatinine 7.22 H* (0.66-1.25) mg/dL Est GFR (CKD-EPI)AfAm 11 (>60 ml/min/1.73 sqM) Est GFR (CKD-EPI)NonAf 9 (>60 ml/min/1.73 sqM) Glucose 155 H (74-99) mg/dL Calcium 8.9 (8.4-10.2) mg/dL Phosphorus 6.1 H (2.5-4.5) mg/dL Magnesium 2.1 (1.6-2.3) mg/dL Total Bilirubin 0.8 (0.2-1.3) mg/dL AST 19 (17-59) U/L ALT 16 L (21-72) U/L Alkaline Phosphatase 62 (38-126) U/L Creatine Kinase 53 L (55-170) U/L Total Protein 5.6 L (6.3-8.2) g/dL Albumin 3.2 L (3.5-5.0) g/dL Lipase 42 (23-300) U/L Acetone, Qual Positive (Negative) - EKG Data -: EKG Interpreted by Me (EKG shows sinus tachycardia rate of 102, IN 136, QRS 74, QTc 479) Disposition Clinical Impression: Acute kidney injury, Weak, Intractable vomiting with nausea, Dehydration, ESRD (end stage renal disease) on dialysis Disposition: ADMITTED IP TO THIS HOSP Condition: Fair Is patient prescribed a controlled substance at d/c from ED?: No Referrals: Sahra Hurtado MD [Primary Care Provider] - 1-2 days
[2018-06-26 14:30] LABS: Basophils % (A) 0 %; Eosinophils # (A) 0.1 k/uL (0-0.7); Eosinophils % (A) 1 %; HCT 44.8 % (39.0-53.0); HGB 14.8 gm/dL (13.0-17.5); Lymphocytes % (A) 11 %; MCH 28.2 pg (25.0-35.0); MCHC 33.1 g/dL (31.0-37.0); MCV 85.4 fL (80.0-100.0); Mean Platelet Volume 7.7; Monocytes # (A) 0.4 k/uL (0-1.0); Monocytes % (A) 4 %; Neutrophils # (A) 7.9 k/uL (1.3-7.7); Neutrophils % (A) 82 %; Platelet Count 116 k/uL (150-450); Poikilocytosis Slight; RBC 5.24 m/uL (4.30-5.90); RDW 14.2 % (11.5-15.5); WBC 9.7 k/uL (3.8-10.6)
[2018-06-26 14:35] LABS: ALT 16 U/L (21-72); AST 19 U/L (17-59); Albumin 3.2 g/dL (3.5-5.0); Alkaline Phosphatase 62 U/L (38-126); Anion Gap 11 mmol/L; Blood Urea Nitrogen 32 mg/dL (9-20); Calcium 8.9 mg/dL (8.4-10.2); Carbon Dioxide 28 mmol/L (22-30); Chloride 98 mmol/L (98-107); Creatine Kinase 53 U/L (55-170); Glucose 155 mg/dL (74-99); Lipase 42 U/L (23-300); Magnesium 2.1 mg/dL (1.6-2.3); Phosphorus 6.1 mg/dL (2.5-4.5); Potassium 3.9 mmol/L (3.5-5.1); Sodium 137 mmol/L (137-145); Total Bilirubin 0.8 mg/dL (0.2-1.3); Total Protein 5.6 g/dL (6.3-8.2)
[2018-06-26] MEDS ORDERED: SODIUM CHLORIDE 0.9% 1,000 ML IV ONE (17:04)
[2018-06-26] MEDS ORDERED: ONDANSETRON 4 MG/2 ML VIAL IVP PRN (17:04)
[2018-06-26] MEDS ORDERED: MORPHINE SULFATE 4 MG/ML SYRINGE IVP PRN (17:04)
[2018-06-26] MEDS ORDERED: LORazepam 2 MG/ML INJ IV PRN (17:04)
[2018-06-26] MEDS ORDERED: MORPHINE SULFATE 4 MG/ML SYRINGE IVP STA (17:04)
[2018-06-26] MEDS ORDERED: PANTOPRAZOLE 40 MG/10 ML VIAL IVP STA (17:04)
[2018-06-26] MEDS ORDERED: PROCHLORPERAZINE 5 MG TAB PO PRN (20:54)
[2018-06-26 20:56] LABS: Glucose,Whole Blood 93 mg/dL (75-99)
[2018-06-26] MEDS ORDERED: ASPIRIN 81 MG PO SCH (21:00)
[2018-06-26] MEDS ORDERED: Insulin Aspart (For Pump) 100 UNIT/ML VIAL SQ-PUMP SCH (21:00)
[2018-06-26] MEDS ORDERED: LORATADINE 10 MG TAB PO SCH (21:00)
[2018-06-26] MEDS ORDERED: INSPUCOR MISCELLANE PRN (21:22)
[2018-06-26] MEDS: hydrALAZINE HCL 20 MG/ML 1 ML VIAL IVP PRN (21:46)
[2018-06-27 06:26] LABS: Glucose,Whole Blood 45 mg/dL (75-99)
[2018-06-27 06:40] LABS: Glucose,Whole Blood 48 mg/dL (75-99)
[2018-06-27 06:58] LABS: Glucose,Whole Blood 82 mg/dL (75-99)
[2018-06-27] MEDS: INSULIN PUMP MEAL BOLUS 1 UNIT MISC MISCELLANE SCH ×2 (07:29→12:26)
[2018-06-27] MEDS ORDERED: PANTOPRAZOLE 40 MG TABLET PO SCH (07:30)
[2018-06-27] MEDS: hydrALAZINE HCL 20 MG/ML 1 ML VIAL IVP PRN (07:37)
[2018-06-27] MEDS ORDERED: CYANOCOBALAMIN 500 MCG TAB PO SCH (09:00)
[2018-06-27] MEDS ORDERED: MULTIVITAMINS, THERA 1 EACH TAB PO SCH (09:00)
[2018-06-27] MEDS ORDERED: amLODIPine 10 MG TAB PO SCH (09:00)
[2018-06-27] MEDS ORDERED: FUROSEMIDE 80 MG TAB PO SCH (09:00)
[2018-06-27] MEDS ORDERED: LOSARTAN 50 MG TAB PO SCH (09:00)
[2018-06-27] MEDS ORDERED: PANTOPRAZOLE 40 MG/10 ML VIAL IVP SCH (09:00)
[2018-06-27] MEDS ORDERED: POTASSIUM CHLORIDE ER 10 MEQ TAB.ER.PRT PO SCH (09:00)
--- NOTE | 2018-06-27 11:38 | P.NPCON ---
History of Present Illness - Reason for Consult end stage renal disease - History of Present Illness Reason for consultation: End-stage renal disease History of present illness: Patient is a 32-year-old male seen in consultation for end-stage renal disease. He is maintained on hemodialysis on a Friday schedule via permacath. Patient has a long-standing history of diabetes mellitus. He's had frequent hospitalizations for diabetic gastroparesis flareups. Patient states 3 days ago he started developing nausea and vomiting along with abdominal discomfort. Overall his symptoms have started to improve. He did vomit this morning. He had chicken broth this morning. Abdominal pain is better. He is currently seen while undergoing hemodialysis. He missed his treatment yesterday due to not feeling well. Patient states he wants to go home later today if possible. No fever or chills. No edema. Vital signs are stable. General: The patient appeared well nourished and normally developed. HEENT: Head exam is unremarkable. Neck is without jugular venous distension. LUNGS: Lungs are clear to auscultation and percussion. Breath sounds decreased. HEART: Rate and Rhythm are regular. First and second heart sounds normal. No murmurs, rubs or gallops. ABDOMEN: Abdominal exam reveals normal bowel sounds. Non-tender and non- distended. No evidence of peritonitis. EXTREMITITES: No clubbing, cyanosis, or edema. Past Medical History Past Medical History: Diabetes Mellitus, Eye Disorder, GERD/Reflux, Hyperlipidemia, Hypertension, Renal Disease Additional Past Medical History / Comment(s): IDDM type I with insulin pump, past DKA, neuropathy bilateral feet, diabetic nephropathy/ESRD with hemodialysis M/W/F pt planning to establish at [facility] for possible kidney transplant, diabetic retinopathy/bleeds bilaterally-pt has very decreased vision and some bilateral eye pain, gastroparesis with botox treatment, esophagitis, hiatal hernia, CHF once, in the past he was on a statin but since taken off. History of Any Multi-Drug Resistant Organisms: None Reported Past Surgical History: Hernia Repair Additional Past Surgical History / Comment(s): 04/2017 bilateral laser eye surgery for retinal bleeds unsuccessful, eye injections, EGD, colonoscopy, dialysis cath placed rt upper chest on 12-03-17 L inguinal hernia repair Past Anesthesia/Blood Transfusion Reactions: Postoperative Nausea & Vomiting (PONV) Additional Past Anesthesia/Blood Transfusion Reaction / Comment(s): Pt has received multiple transfusions. Past Psychological History: No Psychological Hx Reported Additional Psychological History / Comment(s): Pt resides with his spouse. Pt has very poor vision. His spouse assists him as much as she can. She organizes his medication. He uses glasses and a magnifier on his cell phone to read. He no longer drives, spouse takes to appts. They have 3 cats. He is disabled. Smoking Status: Current every day smoker Past Alcohol Use History: None Reported Additional Past Alcohol Use History / Comment(s): started smoking AT AGE 18 smoked 1 ppd cut down 1/4 PPD . TRYING TO QUIT. Past Drug Use History: None Reported Additional Drug Use History / Comment(s): rare use of cbd oil - Past Family History Father Family Medical History: No Reported History Additional Family Medical History / Comment(s): Father is healthy Mother Family Medical History: No Reported History Additional Family Medical History / Comment(s): Mother is healthy. Medications and Allergies Home Medications Medication Instructions Recorded Confirmed Type Omeprazole 20 mg PO DAILY 08/28/17 06/26/18 History Multivitamin [Multivitamins Adult 1 tab PO DAILY 11/28/17 06/26/18 History Gummies] Furosemide [Lasix] 80 mg PO BID@0900,1600 #60 tab 12/08/17 06/26/18 Rx Insulin Aspart (For Pump) [NovoLOG 0.01 unit SQ-PUMP CONTINUOUS 03/20/18 06/26/18 History (For Pump)] Potassium Chloride ER [K-Dur 10] 10 meq PO DAILY 03/20/18 06/26/18 History Aspirin EC [Ecotrin Low Dose] 81 mg PO HS 05/18/18 06/26/18 History Cetirizine HCl [Zyrtec] 10 mg PO HS 05/18/18 06/26/18 History Losartan [Cozaar] 50 mg PO DAILY 05/26/18 06/26/18 History amLODIPine [Norvasc] 10 mg PO DAILY 05/26/18 06/26/18 History Prochlorperazine [Compazine] 5 mg PO Q8HR PRN #30 tab 05/28/18 06/26/18 Rx Calcium Acetate [PhosLo] 667 mg PO TID 05/10/19 05/17/19 History Cyanocobalamin (Vitamin B-12) 1,000 mcg PO DAILY 06/19/18 06/26/18 History [Vitamin B-12] Allergies Allergy/AdvReac Type Severity Reaction Status Date / Time metoclopramide [From Reglan] Allergy ITCHY Verified 06/26/18 14:02 FEELING " Physical Exam Vitals: Vital Signs Temp Pulse Pulse Resp BP BP Pulse Ox 06/27/18 10:19 90 161/91 06/27/18 07:26 97.8 F 89 14 186/105 96 06/27/18 01:59 98.1 F 101 H 17 147/90 97 06/26/18 21:22 97 06/26/18 19:40 211/132 06/26/18 19:24 98.4 F 102 H 20 204/122 96 06/26/18 18:00 98.3 F 94 16 197/99 94 L 06/26/18 16:20 98.5 F 102 H 16 99 06/26/18 13:51 98.0 F 98 16 148/102 98 Intake and Output 06/26/18 06/27/18 06/27/18 22:59 06:59 14:59 Intake Total 20 Balance 20 Intake: Oral 20 Other: Voiding Method Toilet Toilet # Voids 0 0 0 Results - Lab Results Most recent lab results Calcium 8.9 mg/dL (8.4-10.2) 06/26/18 14:09 Phosphorus 6.1 mg/dL (2.5-4.5) H 06/26/18 14:09 Magnesium 2.1 mg/dL (1.6-2.3) 06/26/18 14:09 06/26/18 14:09 06/26/18 14:09 Assessment and Plan Plan: Assessment: 1. End-stage renal disease maintained on hemodialysis on a Friday F riday schedule via [employer]. 2. Nausea vomiting and abdominal discomfort likely from diabetic gastroparesis. Symptoms better. 3. Hypertension with chronic kidney disease. Partially related to gas troparesis flare. 4. Chronic kidney disease mineral bone disease. High phosphorus noted. 5. Insulin-dependent diabetes mellitus. Plan: Currently seen while undergoing hemodialysis. Next treatment on Friday. Resume PhosLo with meals. Potential discharge today if able to tolerate oral intake. Home blood pressure medicines have been resumed. Patient states he has appointment with GI next week for Botox injections. He is also looking into getting a gastric pacemaker at [facility]. Thank you for the consultation. I will continue to follow the patient with you during his hospital stay.
[2018-06-27 11:54] LABS: Glucose,Whole Blood 117 mg/dL (75-99)
[2018-06-27] MEDS ORDERED: CALCIUM ACETATE 667 MG CAP PO SCH (12:30)
[2018-06-27 15:14] VITALS: BP 151/88; PULSE 87; RESP 18; TEMP 97.1
--- NOTE | 2018-06-27 15:29 | P.HPIM ---
History of Present Illness H&P Date: 06/27/18 Chief Complaint: Intractable nausea Mr. Hernandez is a 32-year-old male with a past medical history of type 1 diabetes mellitus on insulin pump, neuropathy, diabetic nephropathy ESRD and hemodialysis on Friday and Friday coming in with a chief complaint of nausea vomit ing for the past couple of days. Patient has multiple admissions in the past for the same reason. At the time of admission patient's blood pressure was also high as he was not able to take his medications. Currently the patient is undergoing dialysis and he states that he was able to tolerate broth this morning. On REVIEW OF SYSTEMS: CONSTITUTIONAL: No fever, no malaise, no fatigue. HEENT: No recent visual problems or hearing problems. Denied any sore throat. CARDIOVASCULAR: No chest pain, orthopnea, PND, no palpitations, no syncope. PULMONARY: No shortness of breath, no cough, no hemoptysis. GASTROINTESTINAL: As mentioned in HPI NEUROLOGICAL: No headaches, no weakness, no numbness. HEMATOLOGICAL: Denies any bleeding or petechiae. GENITOURINARY: Denies any burning micturition, frequency, or urgency. MUSCULOSKELETAL/RHEUMATOLOGICAL: Denies any joint pain, swelling, or any muscle pain. ENDOCRINE: Denies any polyuria or polydipsia. The rest of the 14-point review of systems is negative. Past Medical History Past Medical History: Diabetes Mellitus, Eye Disorder, GERD/Reflux, Hyperlipidemia, Hypertension, Renal Disease Additional Past Medical History / Comment(s): IDDM type I with insulin pump, past DKA, neuropathy bilateral feet, diabetic nephropathy/ESRD with hemodialysis M/W/F pt planning to establish at of for possible kidney transplant, diabetic retinopathy/bleeds bilaterally-pt has very decreased vision and some bilateral eye pain, gastroparesis with botox treatment, esophagitis, hiatal h ernia, CHF once, in the past he was on a statin but since taken off. History of Any Multi-Drug Resistant Organisms: None Reported Past Surgical History: Hernia Repair Additional Past Surgical History / Comment(s): 04/2017 bilateral laser eye surgery for retinal bleeds unsuccessful, eye injections, EGD, colonoscopy, dialysis cath placed rt upper chest on 12-03-17 L inguinal hernia repair Past Anesthesia/Blood Transfusion Reactions: Postoperative Nausea & Vomiting (PONV) Additional Past Anesthesia/Blood Transfusion Reaction / Comment(s): Pt has received multiple transfusions. Past Psychological History: No Psychological Hx Reported Additional Psychological History / Comment(s): Pt resides with his spouse. Pt has very poor vision. His spouse assists him as much as she can. She organizes his medication. He uses glasses and a magnifier on his cell phone to read. He no longer drives, spouse takes to appts. They have 3 cats. He is disabled. Smoking Status: Current every day smoker Past Alcohol Use History: None Reported Additional Past Alcohol Use History / Comment(s): started smoking AT AGE 18 smoked 1 ppd cut down 1/4 PPD . TRYING TO QUIT. Past Drug Use History: None Reported Additional Drug Use History / Comment(s): rare use of cbd oil - Past Family History Father Family Medical History: No Reported History Additional Family Medical History / Comment(s): Father is healthy Mother Family Medical History: No Reported History Additional Family Medical History / Comment(s): Mother is healthy. Medications and Allergies Home Medications Medication Instructions Recorded Confirmed Type Omeprazole 20 mg PO DAILY 08/28/17 06/26/18 History Multivitamin [Multivitamins Adult 1 tab PO DAILY 11/28/17 06/26/18 History Gummies] Furosemide [Lasix] 80 mg PO BID@0900,1600 #60 tab 12/08/17 06/26/18 Rx Insulin Aspart (For Pump) [NovoLOG 0.01 unit SQ-PUMP CONTINUOUS 03/20/18 06/26/18 History (For Pump)] Potassium Chloride ER [K-Dur 10] 10 meq PO DAILY 03/20/18 06/26/18 History Aspirin EC [Ecotrin Low Dose] 81 mg PO HS 05/18/18 06/26/18 History Cetirizine HCl [Zyrtec] 10 mg PO HS 05/18/18 06/26/18 History Losartan [Cozaar] 50 mg PO DAILY 05/26/18 06/26/18 History amLODIPine [Norvasc] 10 mg PO DAILY 05/26/18 06/26/18 History Prochlorperazine [Compazine] 5 mg PO Q8HR PRN #30 tab 05/28/18 06/26/18 Rx Calcium Acetate [PhosLo] 667 mg PO TID 06/19/18 06/26/18 History Cyanocobalamin (Vitamin B-12) 1,000 mcg PO DAILY 06/19/18 06/26/18 History [Vitamin B-12] Allergies Allergy/AdvReac Type Severity Reaction Status Date / Time metoclopramide [From Reglan] Allergy ITCHY Verified 06/26/18 14:02 FEELING " Physical Exam Vitals: Vital Signs Temp Pulse Pulse Resp BP BP Pulse Ox 06/27/18 11:30 97.2 F L 88 18 196/116 06/27/18 10:19 90 161/91 06/27/18 07:26 97.8 F 89 14 186/105 96 06/27/18 01:59 98.1 F 101 H 17 147/90 97 06/26/18 21:22 97 06/26/18 19:40 211/132 06/26/18 19:24 98.4 F 102 H 20 204/122 96 06/26/18 18:00 98.3 F 94 16 197/99 94 L 06/26/18 16:20 98.5 F 102 H 16 99 06/26/18 13:51 98.0 F 98 16 148/102 98 Intake and Output 06/26/18 06/27/18 06/27/18 22:59 06:59 14:59 Intake Total 20 Balance 20 Intake: Oral 20 Other: Voiding Method Toilet Toilet # Voids 0 0 0 PHYSICAL EXAMINATION: GENERAL: The patient is alert and oriented x3, not in any acute distress. Thin built HEENT: No pallor. No icterus. CARDIOVASCULAR: S1 and S2 present. No murmurs, rubs, or gallops. PULMONARY: Chest is clear to auscultation, no wheezing or crackles. ABDOMEN: Soft, nontender, nondistended, normoactive bowel sounds. No palpable organomegaly. MUSCULOSKELETAL: No joint swelling or deformity. EXTREMITIES: No cyanosis, clubbing, or pedal edema. NEUROLOGICAL: Gross neurological examination did not reveal any focal deficits. Results CBC & Chem 7: 06/26/18 14:09 06/26/18 14:09 Labs: Abnormal Lab Results - Last 24 Hours (Table) 06/26/18 06/26/18 06/26/18 Range/Units 14:09 14:09 14:09 Plt Count 116 L (150-450) k/uL Neutrophils # 7.9 H (1.3-7.7) k/uL BUN 32 H (9-20) mg/dL Creatinine 7.22 H* (0.66-1.25) mg/dL Glucose 155 H (74-99) mg/dL POC Glucose (mg/dL) (75-99) mg/dL Phosphorus 6.1 H (2.5-4.5) mg/dL ALT 16 L (21-72) U/L Creatine Kinase 53 L (55-170) U/L Total Creatine Kinase 49 L (55-170) U/L CK-MB (CK-2) 3.0 H (0.0-2.4) ng/mL Total Protein 5.6 L (6.3-8.2) g/dL Albumin 3.2 L (3.5-5.0) g/dL 06/27/18 06/27/18 06/27/18 Range/Units 06:22 06:37 11:52 Plt Count (150-450) k/uL Neutrophils # (1.3-7.7) k/uL BUN (9-20) mg/dL Creatinine (0.66-1.25) mg/dL Glucose (74-99) mg/dL POC Glucose (mg/dL) 45 L 48 L 117 H (75-99) mg/dL Phosphorus (2.5-4.5) mg/dL ALT (21-72) U/L Creatine Kinase (55-170) U/L Total Creatine Kinase (55-170) U/L CK-MB (CK-2) (0.0-2.4) ng/mL Total Protein (6.3-8.2) g/dL Albumin (3.5-5.0) g/dL Thrombosis Risk Factor Assmnt - Choose All That Apply Any of the Below Risk Factors Present?: No Other Risk Factors: No Thrombosis Risk Factor Assessment Level: Very Low Risk Assessment and Plan Assessment: ASSESSMENT Intractable nausea and vomiting - secondary to Gastroparesis Accelerated hypertension and hypertensive urgency - as the patient is not able to tolerate by mouth medications ESRD on hemodialysis Diabetic nephropathy Diabetic neuropathy Type 1 diabetes mellitus insulin-dependent GERD Hyperlipidemia Diabetic retinopathy PLAN: In the ED patient was given IV fluids and symptomatic management for his nausea and vomiting. Patient's symptoms resolved currently and his able to tolerate by mouth. Patient is undergoing dialysis currently and nephrology on board following the patient. Patient's blood pressure is still on the higher side. The patient's blood pressure is back to normal plan is to discharge him home. He said he is trying to get a gastric pacemaker, to follow with [facility] for this.
--- NOTE | 2018-06-27 15:29 | P.DS ---
Providers Date of admission: 06/26/18 17:04 Expected date of discharge: 06/27/18 Attending physician: Anil Haji Consults: 06/26/18 21:00 Consult Physician Routine Consulting Provider: Claire Peck Consult Reason/Comments: dialysis pt Do you want consulting provider notified?: Yes Primary care physician: Sahra [facility] Course: Mr. Hernandez is a 32-year-old male with a past medical history of type 1 diabetes mellitus on insulin pump, neuropathy, diabetic nephropathy ESRD and hemodialysis on Friday and Friday coming in with a chief complaint of nausea vomiting for the past couple of days. Patient has multiple admissions in the past for the same reason. At the time of admission patient's blood pressure was also high as he was not able to take his medications. Currently the patient is undergoing dialysis and he states that he was able to tolerate broth this morning. Patient completed his dialysis session. After which his blood pressure is 1 49 x 88. He states that he usually runs around those numbers. As the patient is able to tolerate by mouth he is being discharged home as he wants to go home. For the rest of the exam and lab details please look at H&P from today. DISCHARGE DIAGNOSIS ntractable nausea and vomiting - secondary to Gastroparesis - resolved Accelerated hypertension and hypertensive urgency - as the patient is not able to tolerate by mouth medications ESRD on hemodialysis Diabetic nephropathy Diabetic neuropathy Type 1 diabetes mellitus insulin-dependent GERD Hyperlipidemia Diabetic retinopathy PLAN: In the ED patient was given IV fluids and symptomatic management for his nausea and vomiting. Patient's symptoms resolved currently and his able to tolerate by mouth. Patient underwent dialysis as per nephrology recommendations today. The patient's blood pressure is back to normal plan is to discharge him home. He said he is trying to get a gastric pacemaker, to follow with [facility] for this. Patient Condition at Discharge: Fair Plan - Discharge Summary New Discharge Prescriptions: Continue Omeprazole 20 mg PO DAILY Multivitamin [Multivitamins Adult Gummies] 1 tab PO DAILY Furosemide [Lasix] 80 mg PO BID@0900,1600 #60 tab Potassium Chloride ER [K-Dur 10] 10 meq PO DAILY Insulin Aspart (For Pump) [NovoLOG (For Pump)] 0.01 unit SQ-PUMP CONTINUOUS Cetirizine HCl [Zyrtec] 10 mg PO HS Aspirin EC [Ecotrin Low Dose] 81 mg PO HS amLODIPine [Norvasc] 10 mg PO DAILY Losartan [Cozaar] 50 mg PO DAILY Prochlorperazine [Compazine] 5 mg PO Q8HR PRN #30 tab PRN Reason: Nausea And Vomiting Cyanocobalamin (Vitamin B-12) [Vitamin B-12] 1,000 mcg PO DAILY Calcium Acetate [PhosLo] 667 mg PO TID Discharge Medication List Omeprazole 20 mg PO DAILY 08/28/17 [History] Multivitamin [Multivitamins Adult Gummies] 1 tab PO DAILY 11/28/17 [History] Furosemide [Lasix] 80 mg PO BID@0900,1600 #60 tab 12/08/17 [Rx] Insulin Aspart (For Pump) [NovoLOG (For Pump)] 0.01 unit SQ-PUMP CONTINUOUS 03/20/18 [History] Potassium Chloride ER [K-Dur 10] 10 meq PO DAILY 03/20/18 [History] Aspirin EC [Ecotrin Low Dose] 81 mg PO HS 05/18/18 [History] Cetirizine HCl [Zyrtec] 10 mg PO HS 05/18/18 [History] Losartan [Cozaar] 50 mg PO DAILY 05/26/18 [History] amLODIPine [Norvasc] 10 mg PO DAILY 05/26/18 [History] Prochlorperazine [Compazine] 5 mg PO Q8HR PRN #30 tab 05/28/18 [Rx] Calcium Acetate [PhosLo] 667 mg PO TID 06/19/18 [History] Cyanocobalamin (Vitamin B-12) [Vitamin B-12] 1,000 mcg PO DAILY 06/19/18 [History] Follow up Appointment(s)/Referral(s): Sahra Hurtado MD [Primary Care Provider] - 1-2 days Discharge Disposition: HOME SELF-CARE
== END 2018-06-27 16:39 | disposition home or self-care (01) ==
LOC: EC 13:43 → 4SSUR 17:04
PROVIDERS: ADMIT Hospitalist; ATTEND Hospitalist
DX: E10.43 Type 1 diabetes mellitus with diabetic autonomic (poly)neuropathy (principal); K31.84 Gastroparesis; N17.9 Acute kidney failure, unspecified; N18.6 End stage renal disease; I12.0 Hypertensive chronic kidney disease with stage 5 chronic kidney disease or end stage renal disease; E10.319 Type 1 diabetes mellitus with unspecified diabetic retinopathy without macular edema; K44.9 Diaphragmatic hernia without obstruction or gangrene; E86.0 Dehydration; F17.210 Nicotine dependence, cigarettes, uncomplicated; H54.7 Unspecified visual loss; K21.9 Gastro-esophageal reflux disease without esophagitis; E83.89 Other disorders of mineral metabolism; E78.5 Hyperlipidemia, unspecified; I16.0 Hypertensive urgency; E10.22 Type 1 diabetes mellitus with diabetic chronic kidney disease; Z99.2 Dependence on renal dialysis; Z79.82 Long term (current) use of aspirin; Z79.4 Long term (current) use of insulin; Z79.899 Other long term (current) drug therapy; Z96.41 Presence of insulin pump (external) (internal); Z91.14 Patient's other noncompliance with medication regimen
CPT/HCPCS: 96376; 96375 ×2; 96361; 96372; 96374; 99285; 36415; 93005; 80053; 82550; 82553; 82009; 83690; 83735; 84100; 85025; G0378 ×2; J2270; J0360 ×2; J1200; J0500; J2405; C9113; 90935

== ENCOUNTER 2018-07-07 08:24 | Day surgery (SDC) | payer MEDICARE, OTHER ==
[2018-07-03 12:28] VITALS: BMI 19.1
[~2018-07-07 08:24] MED LIST changes: -LIDOCAINE 1% 20 ML VIAL (10MG/ML) FOR IV START INTRADERMA PRN; -LIDOCAINE 1% INJ 10MG/ML (20 ML MDV) ONE; -MIDAZOLAM 2 MG/2 ML VIAL IV PRN; +ONABOTULINUMTOXINA 100 UNIT VIAL MISCELLANE ONE; -PROPOFOL 10 MG/ML 20 ML VIAL IV ONE
[2018-07-07 08:50] VITALS: TEMP 98.4
[2018-07-07] MEDS ORDERED: SODIUM CHLORIDE 0.9% 1,000 ML IV ONE (09:02)
[2018-07-07 09:06] LABS: Glucose,Whole Blood 282 mg/dL (75-99)
[2018-07-07] MEDS ORDERED: LIDOCAINE 1% INJ 10MG/ML (20 ML MDV) ONE (09:35)
[2018-07-07] MEDS ORDERED: fentaNYL (PF) 50 MCG/ML 2 ML AMP ONE (09:35)
[2018-07-07] MEDS ORDERED: PROPOFOL 10 MG/ML 20 ML VIAL IV ONE (09:35)
[2018-07-07] MEDS ORDERED: MIDAZOLAM 2 MG/2 ML VIAL ONE (09:35)
[2018-07-07] MEDS ORDERED: ONABOTULINUMTOXINA 100 UNIT VIAL MISCELLANE ONE (09:46)
[2018-07-07 10:00] VITALS: RESP 16
--- NOTE | 2018-07-07 10:03 | P.PCN ---
Date of Procedure: 07/07/18 Procedure(s) Performed: Procedure: Esophagogastroduodenoscopy and Botox injection in the pylorus. Preoperative diagnosis: Insulin-dependent diabetes mellitus with intractable nausea and vomiting secondary to gastroparesis. Postoperative diagnosis: 1. Hiatal hernia with high-grade distal esophagitis secondary to reflux. 2. Antral gastritis. 3. Normal pyloric channel and duodenum. 4. A total of 100 units of Botox were injected in all 4 quadrants in the pylorus. Preparation and sedation: Was provided by anesthesia. Brief clinical history: The patient is a 32-year-old male with insulin-dependent diabetes mellitus diagnosed at age 19 maintained on the insulin. The patient has developed end-stage renal disease and is on hemodialysis. He has been having chronic intractable symptoms of nausea, vomiting and chest pain secondary to gastroparesis. He is ALLERGIC to Reglan. On 04/02/2018, he had a session of Botox injection which, apparently, had for couple months. I have seen him in follow-up on 06/25/2018 in the office and schedule a repeat Botox injection. Meanwhile, we are arranging for evaluation at a tertiary center for candidacy for gastric pacing. Procedure: With the patient on his left lateral decubitus position and after informed consent and adequate sedation, I passed the Olympus-GIF H190 video upper endoscope through the cricopharyngeus down the esophagus. GE junction was around 38 cm from the incisors and there was a 2 cm sliding hiatal hernia as previously described. The distal esophagus showed broad erosions and superficial ulcerations covered with exudate consistent with acid reflux. More proximally, I saw some corrugations in the esophagus but no strictures or Alexandra's esophagus. The endoscope was then passed into the stomach which was insufflated with air and inspected in detail including the retroflex view in the cardia. There was some mottling and erythema in the antrum consistent with gastritis but no ulcers or erosions. Pyloric channel, duodenal bulb, post bulbar area and descending duodenum appeared healthy. There was no phytobezoar. I injected a total of 100 units of Botox in the pylorus in four different quadrants. The patient tolerated the procedure well. Plan: I summarized the findings to the patient and his . Will continue intensive medical therapy and I will see him in follow-up in the office and make further adjustments and keep you updated on his progress. Meanwhile, we are making arrangements for evaluation at a tertiary center.
[2018-07-07 10:14] VITALS: PULSE 88
[2018-07-07 10:18] VITALS: BP 156/96
== END 2018-07-07 10:31 | disposition home or self-care (01) ==
LOC: ORWHC2ENDO 08:24
DX: E11.43 Type 2 diabetes mellitus with diabetic autonomic (poly)neuropathy (principal); K31.84 Gastroparesis; E11.22 Type 2 diabetes mellitus with diabetic chronic kidney disease; K21.0 Gastro-esophageal reflux disease with esophagitis; K29.70 Gastritis, unspecified, without bleeding; K44.9 Diaphragmatic hernia without obstruction or gangrene; N18.6 End stage renal disease; Z79.4 Long term (current) use of insulin; Z99.2 Dependence on renal dialysis; I12.0 Hypertensive chronic kidney disease with stage 5 chronic kidney disease or end stage renal disease; E78.5 Hyperlipidemia, unspecified; Z88.8 Allergy status to other drugs, medicaments and biological substances; E11.319 Type 2 diabetes mellitus with unspecified diabetic retinopathy without macular edema; Z79.82 Long term (current) use of aspirin; Z79.899 Other long term (current) drug therapy
CPT/HCPCS: 43243; J2250; J2001; J0585; J3010; J2704

== ENCOUNTER 2018-07-20 13:18 | Emergency (ER) | payer MEDICARE, OTHER ==
--- NOTE | 2018-07-20 16:45 | ED ---
SOB HPI - General Chief Complaint: Shortness of Breath Stated Complaint: SOB-dialysis pt Time Seen by Provider: 07/20/18 16:30 Source: patient Mode of arrival: wheelchair Limitations: no limitations - History of Present Illness Initial Comments: This 32-year-old white male presents with a complaint of some difficulty in breathing. He states that he had some slight wheezing last night and then developed the shortness of breath this morning. He states that it is worse when he lays down flat and better when sitting. He apparently has had similar sym ptoms multiple times previously due to fluid overload. He does have a history of chronic renal failure and undergoes dialysis. His last dialysis was on Friday, 3 days ago. He was due to have it today but was directed to come to the hospital by his dialysis center when he called them. He denies any chest pain, fevers, or chills. He does feel as though he is bloated throughout his body. He states that he weighs 10 pounds more than he normally does. His renal failure is due to his diabetes. He states that his blood sugar was running somewhat high this weekend and therefore he did drink more fluids. No other complaints or modifying factors. He does relate that his symptoms are moderate ly improved at this time. - Related Data Home Medications Medication Instructions Recorded Confirmed Omeprazole 20 mg PO DAILY 08/28/17 07/20/18 Multivitamin [Multivitamins Adult 1 tab PO DAILY 11/28/17 07/20/18 Gummies] Potassium Chloride ER [K-Dur 10] 10 meq PO DAILY 03/20/18 07/20/18 Aspirin EC [Ecotrin Low Dose] 81 mg PO HS 05/18/18 07/20/18 Cetirizine HCl [Zyrtec] 10 mg PO HS 05/18/18 07/20/18 Losartan [Cozaar] 50 mg PO QAM 05/26/18 07/20/18 amLODIPine [Norvasc] 10 mg PO QAM 05/26/18 07/20/18 Calcium Acetate [PhosLo] 667 mg PO TID 06/19/18 07/20/18 Cyanocobalamin (Vitamin B-12) 1,000 mcg PO DAILY 06/19/18 07/20/18 [Vitamin B-12] Insulin Glargine [Lantus] 11 unit SQ DAILY@1800 07/03/18 07/20/18 Insulin Lispro [humaLOG Kwikpen] See Protocol SQ TID 07/03/18 07/20/18 Carvedilol [Coreg] 6.25 mg PO HS 07/20/18 07/20/18 Carvedilol [Coreg] 12.5 mg PO DAILY 07/20/18 07/20/18 Erythromycin [Carl-Tab] 250 mg PO Q6H PRN 07/20/18 07/20/18 Ondansetron Odt [Zofran ODT] 4 mg PO Q6H PRN 07/20/18 07/20/18 Previous Rx's Medication Instructions Recorded Furosemide [Lasix] 80 mg PO BID@0900,1600 #60 tab 12/08/17 Prochlorperazine [Compazine] 5 mg PO Q8HR PRN #30 tab 05/28/18 Allergies Allergy/AdvReac Type Severity Reaction Status Date / Time metoclopramide [From Reglan] Allergy ITCHY Verified 07/20/18 16:30 FEELING " Review of Systems ROS Statement: Those systems with pertinent positive or pertinent negative responses have been documented in the HPI. ROS Other: All systems not noted in ROS Statement are negative. Past Medical History Past Medical History: Diabetes Mellitus, Eye Disorder, GERD/Reflux, Hyperlipidemia, Hypertension, Renal Disease Additional Past Medical History / Comment(s): IDDM type I with insulin pump, past DKA, neuropathy bilateral feet, diabetic nephropathy/ESRD with hemodialysis M/W/F [facility], diabetic retinopathy/bleeds bilaterally-pt has very decreased vision and some bilateral eye pain, gastroparesis with botox treatment, esophagitis, hiatal hernia, CHF once, in the past he was on a statin but since taken off. History of Any Multi-Drug Resistant Organisms: None Reported Past Surgical History: Hernia Repair Additional Past Surgical History / Comment(s): 04/2017 bilateral laser eye surgery for retinal bleeds unsuccessful, eye injections, EGD, colonoscopy, dialysis cath placed rt upper chest on 12-03-17, L inguinal hernia repair Past Anesthesia/Blood Transfusion Reactions: Postoperative Nausea & Vomiting (PONV) Additional Past Anesthesia/Blood Transfusion Reaction / Comment(s): Pt has r eceived multiple transfusions. Past Psychological History: No Psychological Hx Reported Smoking Status: Current every day smoker Past Alcohol Use History: None Reported Past Drug Use History: None Reported - Past Family History Father Family Medical History: No Reported History Additional Family Medical History / Comment(s): Father is healthy Mother Family Medical History: No Reported History Additional Family Medical History / Comment(s): Mother is healthy. General Exam - General Exam Comments Initial Comments: GENERAL: The patient is well nourished and well hydrated. VITAL SIGNS: Heart rate, blood pressure, respiratory rate reviewed as recorded in nurse's notes. EYES: Pupils are round and reactive. Extraocular movements are intact. No conjunctival / lid redness or swelling. ENT: No external evidence of injury, swelling, or ecchymosis. Airway is patent. Throat is clear. NECK: Nontender. No swelling or evidence of injury. No subcutaneous emphysema. Trachea is midline. No thyroid mass. HEART: Regular rate and rhythm. Good peripheral pulses. LUNGS/CHEST: Breath sounds clear and equal bilaterally. No rales, rhonchi, or wheezes. No ecchymosis, subcutaneous emphysema, or tenderness. ABDOMEN: Abdomen soft without tenderness. No palpable masses or organomegaly. No peritoneal signs. No abdominal wall swelling or ecchymosis. EXTREMITIES: No extremity tenderness. Normal muscle tone and function. No thoracolumbar tenderness. NEUROLOGIC: Sensation is grossly intact. Cranial nerve exam reveals face is symmetrical, tongue is midline, speech is clear. SKIN: No abrasions or ecchymosis is noted. No induration or masses noted. PSYCHIATRIC: Alert and oriented. Appropriate behavior and judgment. Limitations: no limitations Course Vital Signs 07/20/18 07/20/18 07/20/18 14:55 17:03 17:47 Temperature 98.4 F Pulse Rate 93 92 Respiratory 20 18 20 Rate Blood Pressure 153/96 180/111 O2 Sat by Pulse 97 94 L Oximetry Medical Decision Making - Medical Decision Making The patient was seen and examined. All diagnostics were reviewed. The patient did have a EKG done which shows a normal sinus rhythm at a rate of 93. There is no acute ST-T wave changes noted. The MD intervals 152, QRS duration is 70, and the QTC intervals 437. 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 The laboratory does show chronic renal failure and anemia. The chest x-ray shows some degree of increased interstitial markings/pulmonary edema. This felt as though the patient would be stable for discharge after getting dialysis. The patient is agreeable as well. Return parameters are discussed otherwise he is instructed to follow-up on Friday with his normal dialysis and return if any symptoms do worsen. - Lab Data Result diagrams: 07/20/18 17:20 07/20/18 17:20 Lab Results 07/20/18 07/20/18 07/20/18 Range/Units 17:20 17:20 17:20 WBC 7.7 (3.8-10.6) k/uL RBC 3.59 L (4.30-5.90) m/uL Hgb 10.0 L D (13.0-17.5) gm/dL Hct 28.8 L (39.0-53.0) % MCV 80.2 D (80.0-100.0) fL MCH 27.8 (25.0-35.0) pg MCHC 34.7 (31.0-37.0) g/dL RDW 14.5 (11.5-15.5) % Plt Count 110 L (150-450) k/uL Neutrophils % 74 % Lymphocytes % 14 % Monocytes % 5 % Eosinophils % 4 % Basophils % 0 % Neutrophils # 5.8 (1.3-7.7) k/uL Lymphocytes # 1.1 (1.0-4.8) k/uL Monocytes # 0.4 (0-1.0) k/uL Eosinophils # 0.3 (0-0.7) k/uL Basophils # 0.0 (0-0.2) k/uL Poikilocytosis Slight PT 9.4 (9.0-12.0) sec INR 0.9 (<1.2) APTT 24.7 (22.0-30.0) sec Sodium 137 (137-145) mmol/L Potassium 4.9 (3.5-5.1) mmol/L Chloride 103 (98-107) mmol/L Carbon Dioxide 22 (22-30) mmol/L Anion Gap 12 mmol/L BUN 65 H (9-20) mg/dL Creatinine 8.30 H* (0.66-1.25) mg/dL Est GFR (CKD-EPI)AfAm 9 (>60 ml/min/1.73 sqM) Est GFR (CKD-EPI)NonAf 8 (>60 ml/min/1.73 sqM) Glucose 244 H (74-99) mg/dL Calcium 8.3 L (8.4-10.2) mg/dL Total Bilirubin 0.7 (0.2-1.3) mg/dL AST 21 (17-59) U/L ALT 27 (21-72) U/L Alkaline Phosphatase 76 (38-126) U/L Troponin I (0.000-0.034) ng/mL NT-Pro-B Natriuret Pep pg/mL Total Protein 5.9 L (6.3-8.2) g/dL Albumin 3.4 L (3.5-5.0) g/dL 07/20/18 07/20/18 Range/Units 17:20 17:20 WBC (3.8-10.6) k/uL RBC (4.30-5.90) m/uL Hgb (13.0-17.5) gm/dL Hct (39.0-53.0) % MCV (80.0-100.0) fL MCH (25.0-35.0) pg MCHC (31.0-37.0) g/dL RDW (11.5-15.5) % Plt Count (150-450) k/uL Neutrophils % % Lymphocytes % % Monocytes % % Eosinophils % % Basophils % % Neutrophils # (1.3-7.7) k/uL Lymphocytes # (1.0-4.8) k/uL Monocytes # (0-1.0) k/uL Eosinophils # (0-0.7) k/uL Basophils # (0-0.2) k/uL Poikilocytosis PT (9.0-12.0) sec INR (<1.2) APTT (22.0-30.0) sec Sodium (137-145) mmol/L Potassium (3.5-5.1) mmol/L Chloride (98-107) mmol/L Carbon Dioxide (22-30) mmol/L Anion Gap mmol/L BUN (9-20) mg/dL Creatinine (0.66-1.25) mg/dL Est GFR (CKD-EPI)AfAm (>60 ml/min/1.73 sqM) Est GFR (CKD-EPI)NonAf (>60 ml/min/1.73 sqM) Glucose (74-99) mg/dL Calcium (8.4-10.2) mg/dL Total Bilirubin (0.2-1.3) mg/dL AST (17-59) U/L ALT (21-72) U/L Alkaline Phosphatase (38-126) U/L Troponin I <0.012 (0.000-0.034) ng/mL NT-Pro-B Natriuret Pep 75257 pg/mL Total Protein (6.3-8.2) g/dL Albumin (3.5-5.0) g/dL Disposition Clinical Impression: Chronic renal failure, Dyspnea, Hypertension, Type 1 diabetes mellitus, Fluid overload Disposition: HOME SELF-CARE Condition: Good Instructions (If sedation given, give patient instructions): Dialysis Diet (DC), End Stage Kidney Disease (ED) Is patient prescribed a controlled substance at d/c from ED?: No Referrals: Sahra Hurtado MD [Primary Care Provider] - 1-2 days Time of Disposition: 19:10
--- NOTE | 2018-07-20 17:33 | XR ---
EXAMINATION: XR chest 2V DATE AND TIME: 07/20/2018 5:12 PM CLINICAL INDICATION: PHH; difficulty breathing TECHNIQUE: Departmental protocol COMPARISON: 05/26/2018 FINDINGS: Right IJ catheter tips superimposed over the cavoatrial junction. EKG leads noted. There is a reticular pattern of increased density silhouetting the pulmonary vasculature bilaterally, somewhat greater on the left. The pattern suggests interstitial phase pulmonary edema cardiogenic ve rsus noncardiogenic etiology can't be clinically delineated. The cardiac silhouette is moderately enlarged, unchanged when compared to the prior radiograph. Pleural spaces appear to be negative, except for unchanged trace left pleural effusion evidence. No acute skeletal or soft tissue findings. IMPRESSION: Moderate interstitial phase pulmonary edema.
[2018-07-20 17:40] LABS: Basophils % (A) 0 %; Eosinophils # (A) 0.3 k/uL (0-0.7); Eosinophils % (A) 4 %; HCT 28.8 % (39.0-53.0); Lymphocytes # (A) 1.1 k/uL (1.0-4.8); Lymphocytes % (A) 14 %; MCH 27.8 pg (25.0-35.0); MCHC 34.7 g/dL (31.0-37.0); Mean Platelet Volume 7.7; Monocytes # (A) 0.4 k/uL (0-1.0); Monocytes % (A) 5 %; Neutrophils # (A) 5.8 k/uL (1.3-7.7); Neutrophils % (A) 74 %; Platelet Count 110 k/uL (150-450); Poikilocytosis Slight; RBC 3.59 m/uL (4.30-5.90); RDW 14.5 % (11.5-15.5); WBC 7.7 k/uL (3.8-10.6)
[2018-07-20 17:47] LABS: MCV 80.2 fL (80.0-100.0)
[2018-07-20 17:49] LABS: INR 0.9 (<1.2); Partial Thromboplastin Time 24.7 sec (22.0-30.0); Prothrombin Time 9.4 sec (9.0-12.0)
[2018-07-20 18:07] LABS: Albumin 3.4 g/dL (3.5-5.0); Calcium 8.3 mg/dL (8.4-10.2); Potassium 4.9 mmol/L (3.5-5.1); Total Bilirubin 0.7 mg/dL (0.2-1.3); Total Protein 5.9 g/dL (6.3-8.2)
[2018-07-20 20:13] LABS: Glucose,Whole Blood 169 mg/dL (75-99)
[2018-07-20 22:16] VITALS: BP 191/114; PULSE 91; RESP 16; TEMP 98
== END 2018-07-20 21:20 | disposition home or self-care (01) ==
LOC: EC 13:18
DX: E10.22 Type 1 diabetes mellitus with diabetic chronic kidney disease (principal); E10.21 Type 1 diabetes mellitus with diabetic nephropathy; E10.10 Type 1 diabetes mellitus with ketoacidosis without coma; E10.319 Type 1 diabetes mellitus with unspecified diabetic retinopathy without macular edema; I13.2 Hypertensive heart and chronic kidney disease with heart failure and with stage 5 chronic kidney disease, or end stage renal disease; I50.9 Heart failure, unspecified; N18.6 End stage renal disease; R06.00 Dyspnea, unspecified; E87.70 Fluid overload, unspecified; D64.9 Anemia, unspecified; E78.5 Hyperlipidemia, unspecified; K21.9 Gastro-esophageal reflux disease without esophagitis; F17.200 Nicotine dependence, unspecified, uncomplicated; Z79.4 Long term (current) use of insulin; Z79.82 Long term (current) use of aspirin; Z79.899 Other long term (current) drug therapy; Z88.8 Allergy status to other drugs, medicaments and biological substances; Z99.2 Dependence on renal dialysis
CPT/HCPCS: 36415; 93005; 83880; 80053; 84484; 85025; 85610; 85730; 71046; 99285; G0257; 90935

== ENCOUNTER → 2018-07-20 | Outpatient (CLI) | payer MEDICARE, OTHER ==
[2018-07-20 18:54] LABS: Urine Alcohol Negative (Negative); Urine Barbiturate Negative (Negative); Urine Cocaine Negative (Negative); Urine Methadone Negative (Negative); Urine Opiates Negative (Negative); Urine Phencyclidine Negative (Negative)
== END | disposition home or self-care (01) ==
LOC: LABWHC1 09:00
PROVIDERS: ATTEND Psychiatry & Neurology Psychiatry
DX: Z76.82 Awaiting organ transplant status (principal)
CPT/HCPCS: 80306; 36415; G0480; 80307; 80323

== ENCOUNTER → 2018-08-10 | Outpatient (CLI) | payer MEDICARE, OTHER ==
--- NOTE | 2018-08-10 15:55 | NM ---
EXAMINATION TYPE: NM gastric emptying study DATE OF EXAM: 08/10/2018 COMPARISON: NONE HISTORY: Gastroparesis Following administration of 1.9 mCi Tc 99m Sulfur Colloid with 1 cup of oatmeal projection images of the abdomen were obtained 8 minutes post ingestion. When possible, both anterior and posterior projec tion images were obtained to allow the calculation of the geometric mean activity. Clearance: 32 % at approximately 90 minutes Half-life: 130 min Gastroesophagel reflux: None IMPRESSION: Gastric emptying: Abnormally elevated gastric emptying study half-life time and delayed emptying are both indicative of gastroparesis. Gastroesophageal reflux: None Gastric emptying normal percentage values: 30 minutes: <70% of retention (> 30% emptying) suggests abnormally fast emptying. 60 minutes: <90% retention (>10% emptying) is normal; less than 30% retention (>70% emptying) suggest s abnormally rapid emptying. 90 minutes: <65% retention (> 35% emptying) is normal. 120 minutes: <60% retention (> 40% emptying) is normal. 180 minutes: <30% retention (> 70% emptying) is normal. Gastric emptying T-1/2: Solid: The normal range is 60-105 minutes Liquid only: Normal range is 10-45 minutes. Liquid only-children: At 60 minutes, normal range is 44-58 % . Liquid only-infants: At 60 minutes, normal range is 32-64 %. Additional references: Gastric Emptying Scintigraphy [email or web address]://[email or web address]
== END | disposition home or self-care (01) ==
LOC: RADNMMAIN 07:00
DX: R93.3 Abnormal findings on diagnostic imaging of other parts of digestive tract (principal); E11.43 Type 2 diabetes mellitus with diabetic autonomic (poly)neuropathy
CPT/HCPCS: 78264; A9541

== ENCOUNTER 2018-10-09 20:20 | Emergency (ER) | payer MEDICARE, OTHER ==
--- NOTE | 2018-10-09 20:48 | ED ---
General Adult HPI - General Chief complaint: Syncope Stated complaint: Passing out at dialysis treatment Time Seen by Provider: 10/09/18 20:27 Source: patient, family, RN notes reviewed, old records reviewed Mode of arrival: wheelchair Limitations: no limitations - History of Present Illness Initial comments: 32-year-old male patient with past history significant for type 1 diabetes, ESRD on dialysis presents to chief ED with chief complaint of multiple episodes of becoming unresponsive during dialysis session. Patient reports that his last 2 dialysis appointments he removed approximately 2.8 L of fluid. Patient reports that both times he had episodes of unresponsiveness, patient was arousable with stimulation and fluid bolus. Patient denies any other complaints at this time as experiencing any chest pain during these events. Denies any headache or changes in vision. Patient also reports that after dialysis treatments she has been having nausea vomiting. Patient is currently asymptomatic at this time. Systemic: Pt denies fatigue, fever/chills, rash. Pt denies weakness, night sweats, weight loss. Neuro: Pt denies headache, visual disturbances, syncope or pre-syncope. HEENT: Pt denies ocular discharge or irritation, otalgia, rhinorrhea, pharyngitis or notable lymphadenopathy. Cardiopulmonary: Pt denies chest pain, SOB, heart palpitations, dyspnea on exertion. Abdominal/GI: Pt denies abdominal pain, n/v/d. : Pt denies dysuria, burning w/ urination, frequency/urgency. Denies new onset urinary or bowel incontinence. MSK: Pt denies myalgia, loss of strength or function in extremities. Neuro: Pt denies new onset weakness, paresthesias. - Related Data Home Medications Medication Instructions Recorded Confirmed Omeprazole 20 mg PO DAILY 08/28/17 07/20/18 Multivitamin [Multivitamins Adult 1 tab PO DAILY 11/28/17 07/20/18 Gummies] Potassium Chloride ER [K-Dur 10] 10 meq PO DAILY 03/20/18 07/20/18 Aspirin EC [Ecotrin Low Dose] 81 mg PO HS 05/18/18 07/20/18 Cetirizine HCl [Zyrtec] 10 mg PO HS 05/18/18 07/20/18 Losartan [Cozaar] 50 mg PO QAM 05/26/18 07/20/18 amLODIPine [Norvasc] 10 mg PO QAM 05/26/18 07/20/18 Calcium Acetate [PhosLo] 667 mg PO TID 06/19/18 07/20/18 Cyanocobalamin (Vitamin B-12) 1,000 mcg PO DAILY 06/19/18 07/20/18 [Vitamin B-12] Insulin Glargine [Lantus] 11 unit SQ DAILY@1800 07/03/18 07/20/18 Insulin Lispro [humaLOG Kwikpen] See Protocol SQ TID 07/03/18 07/20/18 Carvedilol [Coreg] 6.25 mg PO HS 07/20/18 07/20/18 Carvedilol [Coreg] 12.5 mg PO DAILY 07/20/18 07/20/18 Erythromycin [Carl-Tab] 250 mg PO Q6H PRN 07/20/18 07/20/18 Ondansetron Odt [Zofran ODT] 4 mg PO Q6H PRN 07/20/18 07/20/18 Previous Rx's Medication Instructions Recorded Furosemide [Lasix] 80 mg PO BID@0900,1600 #60 tab 12/08/17 Prochlorperazine [Compazine] 5 mg PO Q8HR PRN #30 tab 05/28/18 Allergies Allergy/AdvReac Type Severity Reaction Status Date / Time metoclopramide [From Reglan] Allergy ITCHY Verified 10/09/18 20:26 FEELING " Review of Systems ROS Statement: Those systems with pertinent positive or pertinent negative responses have been documented in the HPI. ROS Other: All systems not noted in ROS Statement are negative. Past Medical History Past Medical History: Diabetes Mellitus, Eye Disorder, GERD/Reflux, Hyperlipidemia, Hypertension, Renal Disease Additional Past Medical History / Comment(s): IDDM type I with insulin pump, past DKA, neuropathy bilateral feet, diabetic nephropathy/ESRD with hemodialysis M/W/F pt planning to establish at [facility] for possible kidney transplant, diabetic retinopathy/bleeds bilaterally-pt has very decreased vision and some bilateral eye pain, gastroparesis with botox treatment, esophagitis, hiatal hernia, CHF once, in the past he was on a statin but since taken off. History of Any Multi-Drug Resistant Organisms: None Reported Past Surgical History: Hernia Repair Additional Past Surgical History / Comment(s): 04/2017 bilateral laser eye surgery for retinal bleeds unsuccessful, eye injections, EGD, colonoscopy, dialysis cath placed rt upper chest on 12-03-17, L inguinal hernia repair Past Anesthesia/Blood Transfusion Reactions: Postoperative Nausea & Vomiting (PONV) Additional Past Anesthesia/Blood Transfusion Reaction / Comment(s): Pt has received multiple transfusions. Past Psychological History: No Psychological Hx Reported Smoking Status: Former smoker Past Alcohol Use History: None Reported Past Drug Use History: None Reported - Past Family History Father Family Medical History: No Reported History Additional Family Medical History / Comment(s): Father is healthy Mother Family Medical History: No Reported History Additional Family Medical History / Comment(s): Mother is healthy. General Exam - General Exam Comments Initial Comments: Constitutional: NAD, AOX3, Pt has pleasant affect. HEENT: NC/AT, trachea midline, neck supple, no lymphadenopathy. Posterior pharynx non erythematous, without exudates. External ears appear normal, without discharge. Mucous membranes moist. Eyes PERRLA, EOM intact. There is no scleral icterus. No pallor noted. Cardiopulmonary: RRR, no murmurs, rubs or gallops, no JVD noted. Lungs CTAB in anterior and posterior curran. No peripheral edema. Abdominal exam: Abdomen soft and non-distended. Abdomen non-tender to palpation in all 4 quadrants. Bowel sounds active in LLQ. No hepatosplenomegaly. No ecchymosis Neuro: CN II-XII intact. No nuchal rigidity. No raccon eyes, no david sign, no hemotympanum. No cervical spinal tenderness. MSK: No posterior calf tenderness bilaterally, homans sign negative bilaterally. Posterior tibialis and radial pulse +2 bilaterally. Sensation intact in upper and lower extremities. Full active ROM in upper and lower extremities, 5/5 str egnth. Limitations: no limitations Course Vital Signs 10/09/18 20:22 Temperature 97.8 F Pulse Rate 89 Respiratory 20 Rate Blood Pressure 122/86 O2 Sat by Pulse 100 Oximetry Medical Decision Making - Medical Decision Making 32-year-old male patient with past history significant for type 1 diabetes, ESRD on dialysis presents to chief ED with chief complaint of multiple episodes of becoming unresponsive during dialysis session. Patient reports that his last 2 dialysis appointments he removed approximately 2.8 L of fluid. Patient reports that both times he had episodes of unresponsiveness, patient was arousable with stimulation and fluid bolus. Patient denies any other complaints at this time as experiencing any chest pain during these events. Denies any headache or changes in vision. Patient also reports that after dialysis treatments she has been having nausea vomiting. Patient is currently asymptomatic at this time. Patient vital signs stable, afebrile. Physical exam did not display acute pathology. Neurologic exam within normal limits. Labs investigations noncompressive. EKG not concerning for acute ischemia. Patient's symptoms are likely secondary to hypotension from hypovolemia during treatment. Advised patient to follow up with his word processing specialist and potentially increase his dry weight. He was in agreement with his assessment. Offered patient CT of brain which patient declined. Patient discharged with return precautions. Case discussed with Dr. Martinez. - Lab Data Result diagrams: 10/09/18 20:44 10/09/18 20:44 Lab Results 10/09/18 10/09/18 10/09/18 Range/Units 20:44 20:44 20:44 WBC 6.8 (3.8-10.6) k/uL RBC 4.05 L (4.30-5.90) m/uL Hgb 12.0 L (13.0-17.5) gm/dL Hct 34.5 L (39.0-53.0) % MCV 85.1 (80.0-100.0) fL MCH 29.7 (25.0-35.0) pg MCHC 34.9 (31.0-37.0) g/dL RDW 16.4 H (11.5-15.5) % Plt Count 162 (150-450) k/uL Neutrophils % 72 % Lymphocytes % 17 % Monocytes % 7 % Eosinophils % 2 % Basophils % 1 % Neutrophils # 4.9 (1.3-7.7) k/uL Lymphocytes # 1.2 (1.0-4.8) k/uL Monocytes # 0.5 (0-1.0) k/uL Eosinophils # 0.1 (0-0.7) k/uL Basophils # 0.1 (0-0.2) k/uL Poikilocytosis Slight Anisocytosis Slight Sodium 135 L (137-145) mmol/L Potassium 3.3 L (3.5-5.1) mmol/L Chloride 94 L (98-107) mmol/L Carbon Dioxide 32 H (22-30) mmol/L Anion Gap 9 mmol/L BUN 12 (9-20) mg/dL Creatinine 2.73 H (0.66-1.25) mg/dL Est GFR (CKD-EPI)AfAm 34 (>60 ml/min/1.73 sqM) Est GFR (CKD-EPI)NonAf 29 (>60 ml/min/1.73 sqM) Glucose 159 H (74-99) mg/dL POC Glucose (mg/dL) (75-99) mg/dL POC Glu Care Manager Cna ID Calcium 8.6 (8.4-10.2) mg/dL Magnesium 2.0 (1.6-2.3) mg/dL Total Bilirubin 0.4 (0.2-1.3) mg/dL AST 29 (17-59) U/L ALT 11 L (21-72) U/L Alkaline Phosphatase 103 (38-126) U/L Troponin I <0.012 (0.000-0.034) ng/mL Total Protein 6.6 (6.3-8.2) g/dL Albumin 3.8 (3.5-5.0) g/dL 10/09/18 Range/Units 21:17 WBC (3.8-10.6) k/uL RBC (4.30-5.90) m/uL Hgb (13.0-17.5) gm/dL Hct (39.0-53.0) % MCV (80.0-100.0) fL MCH (25.0-35.0) pg MCHC (31.0-37.0) g/dL RDW (11.5-15.5) % Plt Count (150-450) k/uL Neutrophils % % Lymphocytes % % Monocytes % % Eosinophils % % Basophils % % Neutrophils # (1.3-7.7) k/uL Lymphocytes # (1.0-4.8) k/uL Monocytes # (0-1.0) k/uL Eosinophils # (0-0.7) k/uL Basophils # (0-0.2) k/uL Poikilocytosis Anisocytosis Sodium (137-145) mmol/L Potassium (3.5-5.1) mmol/L Chloride (98-107) mmol/L Carbon Dioxide (22-30) mmol/L Anion Gap mmol/L BUN (9-20) mg/dL Creatinine (0.66-1.25) mg/dL Est GFR (CKD-EPI)AfAm (>60 ml/min/1.73 sqM) Est GFR (CKD-EPI)NonAf (>60 ml/min/1.73 sqM) Glucose (74-99) mg/dL POC Glucose (mg/dL) 158 H (75-99) mg/dL POC Glu Care Manager Cna Martha Mcfadden Calcium (8.4-10.2) mg/dL Magnesium (1.6-2.3) mg/dL Total Bilirubin (0.2-1.3) mg/dL AST (17-59) U/L ALT (21-72) U/L Alkaline Phosphatase (38-126) U/L Troponin I (0.000-0.034) ng/mL Total Protein (6.3-8.2) g/dL Albumin (3.5-5.0) g/dL - EKG Data -: EKG Interpreted by Me (and Dr. Martinez ) EKG Comments: Normal sinus rhythm, possible left atrial enlargement, left ventricular hyper trophy, nonspecific ST abnormality, prolonged QT, abnormal EKG, no concern for acute ischemia. Disposition Clinical Impression: End stage kidney disease Disposition: HOME SELF-CARE Condition: Serious Instructions (If sedation given, give patient instructions): Dialysis Diet (DC), End Stage Kidney Disease (ED) Additional Instructions: Patient to adhere to previously discussed treatment plan and will take medication(s) as directed. Patient to follow up with PCP in 1-2 days. Patient to return to ED if symptoms do not improve. Follow-up with primary care provider and word processing specialist tomorrow. Return to ER condition worsens in any way. Is patient prescribed a controlled substance at d/c from ED?: No Referrals: Sahra Hurtado MD [Primary Care Provider] - 1-2 days
[2018-10-09 20:53] LABS: Anisocytosis Slight; Basophils # (A) 0.1 k/uL (0-0.2); Basophils % (A) 1 %; Eosinophils # (A) 0.1 k/uL (0-0.7); Eosinophils % (A) 2 %; HCT 34.5 % (39.0-53.0); Lymphocytes # (A) 1.2 k/uL (1.0-4.8); Lymphocytes % (A) 17 %; MCH 29.7 pg (25.0-35.0); MCHC 34.9 g/dL (31.0-37.0); MCV 85.1 fL (80.0-100.0); Monocytes # (A) 0.5 k/uL (0-1.0); Monocytes % (A) 7 %; Neutrophils # (A) 4.9 k/uL (1.3-7.7); Neutrophils % (A) 72 %; Platelet Count 162 k/uL (150-450); Poikilocytosis Slight; RBC 4.05 m/uL (4.30-5.90); RDW 16.4 % (11.5-15.5); WBC 6.8 k/uL (3.8-10.6)
--- NOTE | 2018-10-09 21:12 | XR ---
EXAMINATION TYPE: XR chest 2V DATE OF EXAM: 10/09/2018 COMPARISON: 07/20/2018 HISTORY: 32-year-old male syncope TECHNIQUE: AP and lateral views FINDINGS: Right anterior chest wall double-lumen hemodialysis catheter. Tips in the upper right atrium. Heart m ildly enlarged. Aorta within normal limits. No consolidation or pleural effusion. IMPRESSION: Mild cardiomegaly. No acute cardiopulmonary process.
[2018-10-09 21:17] LABS: Albumin 3.8 g/dL (3.5-5.0); Calcium 8.6 mg/dL (8.4-10.2); Potassium 3.3 mmol/L (3.5-5.1); Total Bilirubin 0.4 mg/dL (0.2-1.3); Total Protein 6.6 g/dL (6.3-8.2)
[2018-10-09 21:19] LABS: Glucose,Whole Blood 158 mg/dL (75-99)
[2018-10-09 21:58] VITALS: PULSE 84; RESP 19; TEMP 97.7
[2018-10-09 22:01] VITALS: BP 160/103
== END 2018-10-09 22:09 | disposition home or self-care (01) ==
LOC: EC 20:20
DX: N18.6 End stage renal disease (principal); R55 Syncope and collapse; R11.2 Nausea with vomiting, unspecified; E10.22 Type 1 diabetes mellitus with diabetic chronic kidney disease; E10.21 Type 1 diabetes mellitus with diabetic nephropathy; E10.42 Type 1 diabetes mellitus with diabetic polyneuropathy; E10.10 Type 1 diabetes mellitus with ketoacidosis without coma; E10.319 Type 1 diabetes mellitus with unspecified diabetic retinopathy without macular edema; E10.43 Type 1 diabetes mellitus with diabetic autonomic (poly)neuropathy; K31.84 Gastroparesis; I13.2 Hypertensive heart and chronic kidney disease with heart failure and with stage 5 chronic kidney disease, or end stage renal disease; I50.9 Heart failure, unspecified; K21.9 Gastro-esophageal reflux disease without esophagitis; Z87.891 Personal history of nicotine dependence; Z88.8 Allergy status to other drugs, medicaments and biological substances; Z79.4 Long term (current) use of insulin; Z79.82 Long term (current) use of aspirin; Z79.899 Other long term (current) drug therapy; Z96.41 Presence of insulin pump (external) (internal); Z99.2 Dependence on renal dialysis; Z53.20 Procedure and treatment not carried out because of patient's decision for unspecified reasons
CPT/HCPCS: 36415; 71046; 80053; 83735; 84484; 85025; 99284

== ENCOUNTER 2018-11-04 06:34 | Day surgery (SDC) | payer MEDICARE, OTHER ==
[2018-11-02 13:40] VITALS: BMI 20.2
[~2018-11-04 06:34] MED LIST changes: +LIDOCAINE 1% 20 ML VIAL (10MG/ML) FOR IV START INTRADERMA PRN; -ONABOTULINUMTOXINA 100 UNIT VIAL MISCELLANE ONE; +TETRACAINE 0.5% OPHTH (PF) DROPS 4 ML BTL OP ONE
[2018-11-04] MEDS: CYCLOPENTOLATE 1% OPHTH SOLN 2 ML BTL OP ONE ×2 (06:50→06:56)
[2018-11-04] MEDS: PHENYLEPHRINE 2.5% OPHTH DRP 2ML OP NR ×3 (06:53→07:05)
[2018-11-04 07:05] VITALS: TEMP 98
[2018-11-04] MEDS: TIMOLOL 0.5% OPHTH DROPS 5 ML BTL OP ONE ×2 (07:26→07:44)
[2018-11-04] MEDS: MOXIFLOXACIN HCL 0.5% DROPS 3 ML BTL OP ONE ×2 (07:26→07:44)
[2018-11-04 07:27] LABS: Glucose,Whole Blood 135 mg/dL (75-99)
[2018-11-04] MEDS ORDERED: HYALURONATE SODIUM INTRAOCULAR 1 EACH SYRINGE (12MG/ML) INTRAOCULA ONE ×2 (07:27→07:44)
[2018-11-04] MEDS ORDERED: BALANCED SALT IRRIG SOLN COMB2 15 ML IRRIG.SOLN INTRAOCULA ONE ×2 (07:28→07:44)
[2018-11-04] MEDS ORDERED: LIDOCAINE 1% (PF) 10MG/ML VIAL MISCELLANE ONE ×2 (07:28→07:44)
[2018-11-04] MEDS ORDERED: EPINEPHrine 1 MG/ML 1 ML AMP IRRIGATION ONE ×2 (07:30→07:44)
[2018-11-04] MEDS ORDERED: LACTATED RINGERS 1,000 ML IV ONE (07:37)
[2018-11-04] MEDS ORDERED: EPINEPHrine (PF) 0.3 ML in BALANCED SALT IRRIG SOLN COMB2 500 ML IRRIGATION ONE (07:37)
--- NOTE | 2018-11-04 08:01 | P.OP ---
Date of Procedure: 11/04/18 Preoperative Diagnosis: NS & CS & PRP Postoperative Diagnosis: same Procedure(s) Performed: PIOL, OS Implants: PCB00 18.50 Anesthesia: MAC Surgeon: Salomón Bains Estimated Blood Loss (ml): 0 Pathology: none sent Condition: stable Disposition: same day Indications for Procedure: blurring vision Operative Findings: no complications
[2018-11-04 08:04] VITALS: RESP 16
[2018-11-04 08:34] VITALS: BP 161/94; PULSE 81
--- NOTE | 2018-11-05 05:47 | OP ---
OPERATIVE REPORT DATE OF SURGERY: 11/04/2018 SURGEON: Salomón Bains MD PREOPERATIVE DIAGNOSIS: Nuclear sclerosis and posterior subcapsular cataract. POSTOPERATIVE DIAGNOSIS: Nuclear sclerosis and posterior subcapsular cataract. OPERATION: Phacoemulsification of cataract and intraocular lens implant to the left eye. ESTIMATED BLOOD LOSS: Zero. SPECIMEN TAKEN: None. NARRATIVE: After obtaining the appropriate consent, the patient was brought to the Operating Room where the patient was placed under cardiac monitoring and prepped and draped in the usual sterile manner. At the 5 o'clock position a 15 degree super sharp blade was used to create a paracentesis followed by instillation of 1% Xylocaine MPF 50:50 mix with BSS into the anterior chamber. This was followed by Amvisc to stabilize the anterior chamber. At the 3 o'clock position a self-sealing corneal flap incision was created using 2.8 mm emre keratome. A cystotome was used to initiate a continuous tear capsulorrhexis which was completed with the Utrata forceps. A Binkhorst cannula was used to hydrodissect the lens nucleus followed by hydrodelineation. Phacoemulsification of the lens was performed utilizing phaco chop in 8.49 seconds at 5% power. The remaining cortical material was removed using the irrigation aspiration mode followed by additional 1% Xylocaine MPF into the anterior chamber followed by viscoelastic to stabilize the capsular bag. An Nawaf and Nawaf model PCB00 18.5 diopter posterior chamber intraocular lens was placed into the capsular bag without difficulty. The remaining viscoelastic material was removed from the anterior chamber with the irrigation/aspiration. Balanced salt solution was used to normalize the intraocular pressure. The incision was checked for watertight integrity. The patient then received two drops of 0.5% timolol followed by two drops Vigamox, was lightly patched and shielded in the usual manner. There were no complications from the procedure. The patient tolerated the procedure well and was returned to recovery in good condition. MMODL / IJN: [id number] /
== END 2018-11-04 08:40 | disposition home or self-care (01) ==
LOC: OR 06:34
PROVIDERS: ATTEND Ophthalmology
DX: H25.13 Age-related nuclear cataract, bilateral (principal); H25.043 Posterior subcapsular polar age-related cataract, bilateral; H25.013 Cortical age-related cataract, bilateral; E10.36 Type 1 diabetes mellitus with diabetic cataract; E10.35 Type 1 diabetes mellitus with proliferative diabetic retinopathy; E10.65 Type 1 diabetes mellitus with hyperglycemia; H54.10 Blindness, one eye, low vision other eye, unspecified eyes; I10 Essential (primary) hypertension; N19 Unspecified kidney failure; D64.9 Anemia, unspecified; F40.240 Claustrophobia; E78.5 Hyperlipidemia, unspecified; Z79.82 Long term (current) use of aspirin; Z79.4 Long term (current) use of insulin; Z79.899 Other long term (current) drug therapy; Z99.2 Dependence on renal dialysis; Z88.8 Allergy status to other drugs, medicaments and biological substances; Z98.890 Other specified postprocedural states; Z87.891 Personal history of nicotine dependence
CPT/HCPCS: 84132; 66984; C1780; J0171 ×2; J2001

== ENCOUNTER → 2018-11-19 | Outpatient (CLI) | payer BC, MEDICARE ==
[2018-11-19 18:59] LABS: African American GFR (CKD) 15.2 (60.0-200.0); BUN/Creat Ratio 4.72 Ratio (12.00-20.00); Calcium 9.2 mg/dL (8.7-10.3); Chol/HDL Ratio 3.47; Potassium 3.9 mmol/L (3.5-5.5)
[2018-11-19 20:43] LABS: Hemoglobin A1C 7.5 % (4.0-6.0)
== END | disposition home or self-care (01) ==
LOC: LABWHC1 11:19
PROVIDERS: ATTEND Internal Medicine
DX: E10.65 Type 1 diabetes mellitus with hyperglycemia (principal); E78.2 Mixed hyperlipidemia
CPT/HCPCS: 36415; 80048; 80061; 83036; 84450; 84460

== ENCOUNTER 2019-07-08 00:27 | Emergency (ER) | payer MEDICARE, BC ==
[2019-07-08 00:36] VITALS: RESP 18
[2019-07-08 00:39] VITALS: TEMP 94.7
[2019-07-08 00:40] LABS: Glucose,Whole Blood 156 mg/dL (75-99)
--- NOTE | 2019-07-08 00:50 | ED ---
Seizure HPI - General Chief Complaint: Seizure Stated Complaint: seizure Time Seen by Provider: 07/08/19 00:34 Source: patient, EMS Mode of arrival: EMS Limitations: altered mental status - History of Present Illness Initial Comments: This patient is a 33-year-old man brought by ambulance to have evaluation for suspected seizure. History from EMS is that they were called by the patient's after he reportedly lost consciousness and had generalized shaking. No reported history of seizures. History of diabetes. Patient's subsequently arrived and stated that he had been in his usual state of health, and then she believes she may have taken his insulin but not eaten. She states that he was somewhat confused and she checked his blood sugar and it had gone down to 24 then he lost consciousness and had the shaking episode and she called EMS. EMS arrived and found patient with blood sugar in the 20s and did start IV and administered dextrose. Patient on arrival not able to give any additional history due to appearing post ictal. MD Complaint: seizure -: minutes(s) Description of Episode: loss of consciousness, tonic-clonic movement, post-event confusion -: minutes(s) Witnessed: yes - by bystander Trauma: No Seizure History: none Place: home Possible Precipitating Event: other Associated Symptoms: denies other symptoms Treatments Prior to Arrival: other (Glucose) - Related Data Home Medications Medication Instructions Recorded Confirmed Omeprazole 20 mg PO DAILY 08/28/17 11/02/18 Aspirin EC [Ecotrin Low Dose] 81 mg PO HS 05/18/18 11/02/18 Cetirizine HCl [Zyrtec] 10 mg PO HS 05/18/18 11/02/18 amLODIPine [Norvasc] 10 mg PO QAM 05/26/18 11/02/18 Calcium Acetate [PhosLo] 667 mg PO TID 06/19/18 11/02/18 Cyanocobalamin (Vitamin B-12) 1,000 mcg PO DAILY 06/19/18 11/02/18 [Vitamin B-12] Carvedilol [Coreg] 18.75 mg PO BID 07/20/18 11/02/18 Ondansetron Odt [Zofran ODT] 4 mg PO Q6H PRN 07/20/18 11/02/18 Insulin Aspart [NovoLOG Flexpen] 0 unit SQ DIRECTED PRN 11/02/18 11/02/18 Insulin Glargine,Hum.rec.anlog 16 units SQ PC-SUPPER 11/02/18 11/02/18 [Vishnumarabhavna Rolandalessandra] Losartan Potassium 100 mg PO QAM 11/02/18 11/02/18 Previous Rx's Medication Instructions Recorded Furosemide [Lasix] 80 mg PO BID@0900,1600 #60 tab 12/08/17 Prochlorperazine [Compazine] 5 mg PO Q8HR PRN #30 tab 05/28/18 Allergies Allergy/AdvReac Type Severity Reaction Status Date / Time metoclopramide [From Reglan] Allergy ITCHY Verified 11/02/18 13:33 FEELING " Review of Systems ROS Statement: Those systems with pertinent positive or pertinent negative responses have been documented in the HPI. ROS Other: All systems not noted in ROS Statement are negative. Limitations: ROS unobtainable due to patients medical condition Neurological: Reports: as per HPI, other (Suspected seizure) Past Medical History Past Medical History: Diabetes Mellitus, Eye Disorder, GERD/Reflux, Hyperlipidemia, Hypertension, Renal Disease Additional Past Medical History / Comment(s): past DKA, neuropathy bilateral feet, diabetic nephropathy/ESRD with hemodialysis M/W/F pt planning establishing at [facility] for possible kidney transplant, diabetic retinopathy/bleeds kym aterally-pt legally blind, gastroparesis with botox treatment, esophagitis, hiatal hernia, History of Any Multi-Drug Resistant Organisms: None Reported Past Surgical History: Hernia Repair Additional Past Surgical History / Comment(s): Vitrectomy right eye, 04/2017 bilateral laser eye surgery for retinal bleeds unsuccessful, eye injections, EGD, colonoscopy, dialysis cath placed rt upper chest on 12-03-17, graft rt forearm 10/06/18 for dialysis, L inguinal hernia repair Past Anesthesia/Blood Transfusion Reactions: Postoperative Nausea & Vomiting (PONV) Additional Past Anesthesia/Blood Transfusion Reaction / Comment(s): clausterphobia, Pt has received multiple transfusions. Past Psychological History: No Psychological Hx Reported Smoking Status: Former smoker Past Alcohol Use History: None Reported Past Drug Use History: None Reported - Past Family History Father Family Medical History: No Reported History Additional Family Medical History / Comment(s): Father is healthy Mother Family Medical History: No Reported History Additional Family Medical History / Comment(s): Mother is healthy. General Exam Limitations: altered mental status General appearance: alert, other (Confused) Head exam: Present: atraumatic, normocephalic Eye exam: Present: normal appearance, PERRL, EOMI. Absent: scleral icterus, conjunctival injection Neck exam: Present: normal inspection, full ROM. Absent: tenderness, meningismus Respiratory exam: Present: normal lung sounds bilaterally. Absent: respiratory distress, wheezes, rales, rhonchi, stridor, chest wall tenderness, accessory muscle use Cardiovascular Exam: Present: regular rate, normal rhythm, normal heart sounds. Absent: systolic murmur, diastolic murmur, rubs, gallop GI/Abdominal exam: Present: soft. Absent: distended, tenderness, guarding, rebound, rigid, mass Extremities exam: Present: normal inspection, normal capillary refill, other (Patient has right forearm dialysis graft with normal thrill). Absent: pedal edema, calf tenderness Back exam: Present: normal inspection. Absent: CVA tenderness (R), CVA tenderness (L) Neurological exam: Present: alert, CN II-XII intact. Absent: oriented X3, motor sensory deficit Skin exam: Present: warm, dry, intact, normal color. Absent: rash Course Vital Signs 07/08/19 07/08/19 07/08/19 00:30 00:35 02:30 Temperature 94.7 F L Pulse Rate 95 102 H Respiratory 18 18 Rate Blood Pressure 185/99 167/101 O2 Sat by Pulse 99 97 Oximetry 07/08/19 03:00 Temperature Pulse Rate 92 Respiratory 18 Rate Blood Pressure 120/82 O2 Sat by Pulse 95 Oximetry - Reevaluation(s) Reevaluation #1: 07/08/19 01:12 At patient's first reevaluation, he has now become alert and oriented 3. He does confirm that he had done his usual evening yoga and then had taken insulin but had not eaten yet. Patient's states that he does. He now be at his baseline mentation. Medical Decision Making - Lab Data Result diagrams: 07/08/19 00:45 07/08/19 00:45 Lab Results 07/08/19 07/08/19 07/08/19 Range/Units 00:32 00:45 00:45 WBC 6.0 (3.8-10.6) k/uL RBC 3.10 L (4.30-5.90) m/uL Hgb 9.6 L (13.0-17.5) gm/dL Hct 29.5 L (39.0-53.0) % MCV 95.2 (80.0-100.0) fL MCH 30.8 (25.0-35.0) pg MCHC 32.3 (31.0-37.0) g/dL RDW 18.7 H (11.5-15.5) % Plt Count 138 L (150-450) k/uL Neutrophils % 57 % Lymphocytes % 29 % Monocytes % 5 % Eosinophils % 5 % Basophils % 1 % Neutrophils # 3.4 (1.3-7.7) k/uL Lymphocytes # 1.7 (1.0-4.8) k/uL Monocytes # 0.3 (0-1.0) k/uL Eosinophils # 0.3 (0-0.7) k/uL Basophils # 0.0 (0-0.2) k/uL Anisocytosis Slight Macrocytosis Slight Sodium 140 (137-145) mmol/L Potassium 4.3 (3.5-5.1) mmol/L Chloride 96 L (98-107) mmol/L Carbon Dioxide 21 L (22-30) mmol/L Anion Gap 23 mmol/L BUN 38 H (9-20) mg/dL Creatinine 8.60 H* (0.66-1.25) mg/dL Est GFR (CKD-EPI)AfAm 8 (>60 ml/min/1.73 sqM) Est GFR (CKD-EPI)NonAf 7 (>60 ml/min/1.73 sqM) Glucose 120 H (74-99) mg/dL POC Glucose (mg/dL) 156 H (75-99) mg/dL POC Glu Recycling Operations Manager ID Yanira Umanzor Calcium 9.5 (8.4-10.2) mg/dL Total Bilirubin 0.6 (0.2-1.3) mg/dL AST 32 (17-59) U/L ALT 26 (4-49) U/L Alkaline Phosphatase 93 (38-126) U/L Total Protein 7.6 (6.3-8.2) g/dL Albumin 4.9 (3.5-5.0) g/dL TSH (0.465-4.680) mIU/L Serum Alcohol <10 mg/dL 07/08/19 07/08/19 07/08/19 Range/Units 00:45 01:30 02:35 WBC (3.8-10.6) k/uL RBC (4.30-5.90) m/uL Hgb (13.0-17.5) gm/dL Hct (39.0-53.0) % MCV (80.0-100.0) fL MCH (25.0-35.0) pg MCHC (31.0-37.0) g/dL RDW (11.5-15.5) % Plt Count (150-450) k/uL Neutrophils % % Lymphocytes % % Monocytes % % Eosinophils % % Basophils % % Neutrophils # (1.3-7.7) k/uL Lymphocytes # (1.0-4.8) k/uL Monocytes # (0-1.0) k/uL Eosinophils # (0-0.7) k/uL Basophils # (0-0.2) k/uL Anisocytosis Macrocytosis Sodium (137-145) mmol/L Potassium (3.5-5.1) mmol/L Chloride (98-107) mmol/L Carbon Dioxide (22-30) mmol/L Anion Gap mmol/L BUN (9-20) mg/dL Creatinine (0.66-1.25) mg/dL Est GFR (CKD-EPI)AfAm (>60 ml/min/1.73 sqM) Est GFR (CKD-EPI)NonAf (>60 ml/min/1.73 sqM) Glucose (74-99) mg/dL POC Glucose (mg/dL) 157 H 416 H (75-99) mg/dL POC Glu Recycling Operations Manager ID Yanira Umanzor Gibson Calcium (8.4-10.2) mg/dL Total Bilirubin (0.2-1.3) mg/dL AST (17-59) U/L ALT (4-49) U/L Alkaline Phosphatase (38-126) U/L Total Protein (6.3-8.2) g/dL Albumin (3.5-5.0) g/dL TSH 7.270 H (0.465-4.680) mIU/L Serum Alcohol mg/dL 07/08/19 Range/Units 03:13 WBC (3.8-10.6) k/uL RBC (4.30-5.90) m/uL Hgb (13.0-17.5) gm/dL Hct (39.0-53.0) % MCV (80.0-100.0) fL MCH (25.0-35.0) pg MCHC (31.0-37.0) g/dL RDW (11.5-15.5) % Plt Count (150-450) k/uL Neutrophils % % Lymphocytes % % Monocytes % % Eosinophils % % Basophils % % Neutrophils # (1.3-7.7) k/uL Lymphocytes # (1.0-4.8) k/uL Monocytes # (0-1.0) k/uL Eosinophils # (0-0.7) k/uL Basophils # (0-0.2) k/uL Anisocytosis Macrocytosis Sodium (137-145) mmol/L Potassium (3.5-5.1) mmol/L Chloride (98-107) mmol/L Carbon Dioxide (22-30) mmol/L Anion Gap mmol/L BUN (9-20) mg/dL Creatinine (0.66-1.25) mg/dL Est GFR (CKD-EPI)AfAm (>60 ml/min/1.73 sqM) Est GFR (CKD-EPI)NonAf (>60 ml/min/1.73 sqM) Glucose (74-99) mg/dL POC Glucose (mg/dL) 414 H (75-99) mg/dL POC Glu Recycling Operations Manager ID Melyssa Barakat A Calcium (8.4-10.2) mg/dL Total Bilirubin (0.2-1.3) mg/dL AST (17-59) U/L ALT (4-49) U/L Alkaline Phosphatase (38-126) U/L Total Protein (6.3-8.2) g/dL Albumin (3.5-5.0) g/dL TSH (0.465-4.680) mIU/L Serum Alcohol mg/dL - EKG Data -: EKG Interpreted by Nh EKG shows normal: sinus rhythm, axis (Normal), intervals (Normal), QRS complexes (Normal), ST-T waves (Normal) Rate: normal (Rate 84 bpm) Interpretation: LVH Disposition Clinical Impression: New onset seizure, Hypoglycemia due to type 1 diabetes mellitus, Hypothyroid Disposition: HOME SELF-CARE Condition: Good Instructions (If sedation given, give patient instructions): Hypothyroidism (ED), Hypoglycemia in a Person with Diabetes (ED), New-Onset Seizure in Adults (ED) Is patient prescribed a controlled substance at d/c from ED?: No Referrals: None,Stated [Primary Care Provider] - 1-2 days Petra Rosenthal MD [STAFF PHYSICIAN] - 1-2 days Coleen Gonsales MD [REFERRING] - 1-2 days
[2019-07-08 01:06] LABS: Anisocytosis Slight; Basophils % (A) 1 %; Eosinophils # (A) 0.3 k/uL (0-0.7); Eosinophils % (A) 5 %; HCT 29.5 % (39.0-53.0); HGB 9.6 gm/dL (13.0-17.5); Lymphocytes # (A) 1.7 k/uL (1.0-4.8); Lymphocytes % (A) 29 %; MCH 30.8 pg (25.0-35.0); MCHC 32.3 g/dL (31.0-37.0); MCV 95.2 fL (80.0-100.0); Macrocytosis Slight; Mean Platelet Volume 8.2; Monocytes # (A) 0.3 k/uL (0-1.0); Monocytes % (A) 5 %; Neutrophils # (A) 3.4 k/uL (1.3-7.7); Neutrophils % (A) 57 %; Platelet Count 138 k/uL (150-450); RDW 18.7 % (11.5-15.5)
[2019-07-08 01:19] LABS: AST 32 U/L (17-59); Albumin 4.9 g/dL (3.5-5.0); Alcohol <10 mg/dL; Alkaline Phosphatase 93 U/L (38-126); Anion Gap 23 mmol/L; Blood Urea Nitrogen 38 mg/dL (9-20); Calcium 9.5 mg/dL (8.4-10.2); Carbon Dioxide 21 mmol/L (22-30); Chloride 96 mmol/L (98-107); Glucose 120 mg/dL (74-99); Non-African American GFR(CKD) 7 (>60 ml/min/1.73 sqM); Potassium 4.3 mmol/L (3.5-5.1); Sodium 140 mmol/L (137-145); Total Bilirubin 0.6 mg/dL (0.2-1.3); Total Protein 7.6 g/dL (6.3-8.2)
[2019-07-08 01:23] LABS: African American GFR (CKD) 8 (>60 ml/min/1.73 sqM)
[2019-07-08 01:25] LABS: ALT 26 U/L (4-49)
[2019-07-08 01:32] LABS: Glucose,Whole Blood 157 mg/dL (75-99)
[2019-07-08 02:37] LABS: Glucose,Whole Blood 416 mg/dL (75-99)
[2019-07-08] MEDS ORDERED: INSULIN REGULAR 100 UNIT/ML VIAL SQ STA (02:44)
[2019-07-08] MEDS ORDERED: ONDANSETRON 4 MG/2 ML VIAL IVP STA (02:44)
[2019-07-08 03:19] LABS: Glucose,Whole Blood 414 mg/dL (75-99)
[2019-07-08 03:24] VITALS: BP 120/82; PULSE 92
[2019-07-08 04:46] LABS: T4, Free (Free Thyroxine) 0.87 ng/dL (0.78-2.19)
== END 2019-07-08 04:37 | disposition home or self-care (01) ==
LOC: EC 00:27
DX: R56.9 Unspecified convulsions (principal); E10.649 Type 1 diabetes mellitus with hypoglycemia without coma; E03.9 Hypothyroidism, unspecified; I12.0 Hypertensive chronic kidney disease with stage 5 chronic kidney disease or end stage renal disease; E10.22 Type 1 diabetes mellitus with diabetic chronic kidney disease; N18.6 End stage renal disease; E10.40 Type 1 diabetes mellitus with diabetic neuropathy, unspecified; K21.9 Gastro-esophageal reflux disease without esophagitis; Z79.82 Long term (current) use of aspirin; Z79.899 Other long term (current) drug therapy; Z79.02 Long term (current) use of antithrombotics/antiplatelets; Z79.4 Long term (current) use of insulin; Z88.8 Allergy status to other drugs, medicaments and biological substances; Z87.891 Personal history of nicotine dependence; Z99.2 Dependence on renal dialysis
CPT/HCPCS: 36415; 80053; 80320; 84439; 84443; 85025; 93005; 96374; 99285

== ENCOUNTER 2019-11-07 14:54 | Inpatient (IN) | payer MEDICARE, BC ==
[2019-11-07] MEDS ORDERED: ONDANSETRON 4 MG/2 ML VIAL IVP STA (15:25)
[2019-11-07] MEDS ORDERED: SODIUM CHLORIDE 0.9% 1,000 ML IV STA (15:25)
[2019-11-07] MEDS ORDERED: PANTOPRAZOLE 40 MG/10 ML VIAL IVP STA (15:29)
--- NOTE | 2019-11-07 15:34 | ED ---
Nausea/Vomiting/Diarrhea HPI - General Source: patient Mode of arrival: wheelchair Limitations: no limitations <Wander Oviedo - Last Filed: 11/07/19 18:38> <HussaindeanMagenIra Rayray - Last Filed: 11/08/19 14:35> - General Chief complaint: Nausea/Vomiting/Diarrhea Stated complaint: vomiting Time Seen by Provider: 11/07/19 15:12 - History of Present Illness Initial comments: Patient is a 34-year-old male with type 1 diabetes, gastroparesis and recent renal transplant presents emergency Department with a chief complaint of nausea and vomiting. Patient stated reports not being able to take his omeprazole for about 5 days because he was out of the medication. Patient states for the last several days he's had multiple episodes of nonbilious and nonbloody vomiting. Patient states he is not been able to keep any fluids down. States she attempted to take Zofran tablets with no success. Denies any abdominal pain a side from having some epigastric discomfort after vomiting episodes. Denies any diarrhea. Denies any night sweats fevers or chills. States he received a renal transplant secondary to renal failure. He was able to take his antirejection medication. (Wander Oviedo) - Related Data Home Medications Medication Instructions Recorded Confirmed Omeprazole 20 mg PO BID@0900,209908/28/17 11/07/19 Aspirin EC [Ecotrin Low Dose] 81 mg PO DAILY@0900 05/18/18 11/07/19 Insulin Aspart [NovoLOG Flexpen] 2 - 16 unit SQ ACHS 11/02/18 11/07/19 Insulin Glargine,Hum.rec.anlog 26 units SQ DAILY@1800 11/02/18 11/07/19 [Toubhavna Solostar] Atorvastatin [Lipitor] 40 mg PO HS@209911/07/19 11/07/19 Calcium Citrate 250 mg PO BID@0900,209911/07/19 11/07/19 Cholecalciferol [Vitamin D3 (25 2,000 unit PO HS@209911/07/19 11/07/19 Mcg = 1000 Iu)] Fludrocortisone [Florinef] 0.1 mg PO DAILY@0900 11/07/19 11/07/19 Glucagon Emergency Kit 1 mg IM ONCE PRN 11/07/19 11/07/19 Insulin NPH Human Isophane 14 units SQ DAILY 11/07/19 11/07/19 [NovoLIN N] Lidocaine-Prilocaine Cream [Emla 1 applic TOPICAL DAILY PRN 11/07/19 11/07/19 Cream 2.5%/2.5%] Loratadine [Claritin] 10 mg PO DAILY@89911/07/19 11/07/19 Magnesium Chloride [Slow Mag] 128 mg PO DAILY@89911/07/19 11/07/19 Midodrine HCl 10 mg PO TID@0900,1400,2100 11/07/19 11/07/19 Sulfamethox-Tmp 400-80Mg [Bactrim 1 tab PO DAILY@89911/07/19 11/07/19 SS 400-80 mg] Tacrolimus [Envarsus Xr] 6 mg PO DAILY@89911/07/19 11/07/19 buPROPion XL [Wellbutrin Xl] 150 mg PO DAILY@89911/07/19 11/07/19 mycophenolate mofetiL [Cellcept] 1,000 mg PO BID@0900,2100 11/07/19 11/07/19 predniSONE 5 mg PO DAILY@89911/07/19 11/07/19 Previous Rx's Medication Instructions Recorded Omeprazole [PriLOSEC] 20 mg PO AC-BRKFST #14 cap 11/07/19 Ondansetron Odt [Zofran Odt] 4 mg PO Q8HR PRN #30 tab 11/07/19 Allergies Allergy/AdvReac Type Severity Reaction Status Date / Time metoclopramide [From Reglan] Allergy ITCHY Verified 11/07/19 19:53 FEELING " Review of Systems ROS Other: All systems not noted in ROS Statement are negative. <Wander Oviedo - Last Filed: 11/07/19 18:38> ROS Other: All systems not noted in ROS Statement are negative. <Ira Robbins - Last Filed: 11/08/19 14:35> ROS Statement: Those systems with pertinent positive or pertinent negative responses have been documented in the HPI. Past Medical History Past Medical History: Diabetes Mellitus, Eye Disorder, GERD/Reflux, Hyperlipidemia, Hypertension, Renal Disease Additional Past Medical History / Comment(s): past DKA, neuropathy bilateral feet, diabetic nephropathy/ESRD with hemodialysis M/W/F pt planning establishing at [facility] for possible kidney transplant, diabetic retinopathy/bleeds bilaterally-pt legally blind, gastroparesis with botox treatment, esophagitis, hiatal hernia, History of Any Multi-Drug Resistant Organisms: None Reported Past Surgical History: Hernia Repair Additional Past Surgical History / Comment(s): Vitrectomy right eye, 04/2017 bilateral laser eye surgery for retinal bleeds unsuccessful, eye injections, EGD, colonoscopy, dialysis cath placed rt upper chest on 12-03-17, graft rt forearm 10/06/18 for dialysis, L inguinal hernia repair, kidney transplant- left Past Anesthesia/Blood Transfusion Reactions: Postoperative Nausea & Vomiting (PONV) Additional Past Anesthesia/Blood Transfusion Reaction / Comment(s): clausterphobia, Pt has received multiple transfusions. Past Psychological History: Depression Smoking Status: Never smoker Past Alcohol Use History: None Reported Past Drug Use History: None Reported - Past Family History Father Family Medical History: No Reported History Additional Family Medical History / Comment(s): Father is healthy Mother Family Medical History: No Reported History Additional Family Medical History / Comment(s): Mother is healthy. <Wander Oviedo - Last Filed: 11/07/19 18:38> General Exam Limitations: no limitations General appearance: alert, in no apparent distress Head exam: Present: atraumatic, normocephalic, normal inspection Eye exam: Present: normal appearance, PERRL, EOMI Pupils: Present: normal accommodation ENT exam: Present: normal exam, normal oropharynx, mucous membranes dry, TM's normal bilaterally, normal external ear exam Neck exam: Present: normal inspection, full ROM. Absent: tenderness Respiratory exam: Present: normal lung sounds bilaterally. Absent: respiratory distress, wheezes, rales, rhonchi, stridor Cardiovascular Exam: Present: regular rate, normal rhythm, normal heart sounds GI/Abdominal exam: Present: soft. Absent: distended, tenderness, guarding, rebo und Extremities exam: Present: normal inspection, full ROM, normal capillary refill, other (+2 ulnar radial pulses bilateral.). Absent: tenderness Back exam: Present: normal inspection, full ROM. Absent: tenderness, CVA tenderness (R), CVA tenderness (L) Neurological exam: Present: alert, oriented X3 Psychiatric exam: Present: normal affect, normal mood Skin exam: Present: warm, dry, intact, normal color <Wander Oviedo - Last Filed: 11/07/19 18:38> Course Vital Signs 11/07/19 11/07/19 11/07/19 15:03 17:43 19:14 Temperature 99.2 F 98.2 F Pulse Rate 90 111 H 108 H Respiratory 18 20 18 Rate Blood Pressure 124/80 160/94 172/102 O2 Sat by Pulse 99 97 98 Oximetry Medical Decision Making - Lab Data Result diagrams: 11/07/19 15:30 11/07/19 15:30 <Wander Oviedo - Last Filed: 11/07/19 18:38> - Lab Data Result diagrams: 11/07/19 15:30 11/07/19 15:30 <Ira Robbins Rayray - Last Filed: 11/08/19 14:35> - Medical Decision Making Patient is a 34-year-old male with history of gastroparesis, type 1 diabetes and recent renal transplant presenting to the emergency department with a chief complaint of nausea vomiting. On initial evaluation, patient is nauseous and vomiting. He does have dry mucous membranes. CBC is in her color. CMP reveals mild elevation BUN at 21 secondary to dehydration. Anion gap of 13. Creatinine within normal levels at 1.11. UA shows plus for glucose and +2 ketones. This appears to be starvation ketosis. Patient was given Zofran, Protonix and IV fluids. On reevaluation, nausea is consistent. He was given Tigan. This does not seem to improve his nausea. Patient will be admitted for further medical management Due to intractable nausea or vomiting. Case discussed with physician. I spoke with Nael, from Dr Haji's group, who will accept the patient. Admitting physician is (Wander Oviedo) I was available for consultation in the emergency department. The history and physical exam were done by the midlevel provider. I was consulted for this patients care. I reviewed the case with the midlevel provider and based on their presentation of the patient, I agree with the assessment, medical decision making and plan of care as documented. Chart was dictated using [employer] dictation software. Attempts were made to correct any dictation errors however some typographical errors may persist. Patient was seen during a national state of emergency due to the Covid-19 pandemic. (Ira Robbins) - Lab Data Lab Results 11/07/19 11/07/19 11/07/19 Range/Units 15:30 15:30 15:30 WBC 6.2 (3.8-10.6) k/uL RBC 4.68 (4.30-5.90) m/uL Hgb 13.2 (13.0-17.5) gm/dL Hct 40.3 (39.0-53.0) % MCV 86.1 (80.0-100.0) fL MCH 28.2 (25.0-35.0) pg MCHC 32.8 (31.0-37.0) g/dL RDW 14.4 (11.5-15.5) % Plt Count 205 (150-450) k/uL Neutrophils % Not Reportable Neutrophils % (Manual) 88 % Band Neuts % (Manual) 1 % Lymphocytes % Not Reportable Lymphocytes % (Manual) 6 % Monocytes % Not Reportable Monocytes % (Manual) 5 % Eosinophils % Not Reportable Basophils % Not Reportable Neutrophils # Not Reportable Neutrophils # (Manual) 5.50 (1.3-7.7) k/uL Lymphocytes # Not Reportable Lymphocytes # (Manual) 0.37 L (1.0-4.8) k/uL Monocytes # Not Reportable Monocytes # (Manual) 0.31 (0-1.0) k/uL Eosinophils # Not Reportable Basophils # Not Reportable Nucleated RBCs 0 (0-0) /100 WBC Manual Slide Review Performed Poikilocytosis Slight Sodium 139 (137-145) mmol/L Potassium 3.8 (3.5-5.1) mmol/L Chloride 92 L (98-107) mmol/L Carbon Dioxide 34 H (22-30) mmol/L Anion Gap 13 mmol/L BUN 21 H (9-20) mg/dL Creatinine 1.11 (0.66-1.25) mg/dL Est GFR (CKD-EPI)AfAm >90 (>60 ml/min/1.73 sqM) Est GFR (CKD-EPI)NonAf 86 (>60 ml/min/1.73 sqM) Glucose 223 H (74-99) mg/dL Calcium 9.4 (8.4-10.2) mg/dL Total Bilirubin 1.2 (0.2-1.3) mg/dL AST 28 (17-59) U/L ALT 19 (4-49) U/L Alkaline Phosphatase 108 (38-126) U/L Total Protein 7.2 (6.3-8.2) g/dL Albumin 4.6 (3.5-5.0) g/dL Urine Color Yellow Urine Appearance Clear (Clear) Urine pH 7.0 (5.0-8.0) Ur Specific [place] 1.021 (1.001-1.035) Urine Protein 1+ H (Negative) Urine Glucose (UA) 4+ H (Negative) Urine Ketones 2+ H (Negative) Urine Blood Negative (Negative) Urine Nitrite Negative (Negative) Urine Bilirubin Negative (Negative) Urine Urobilinogen <2.0 (<2.0) mg/dL Ur Leukocyte Esterase Negative (Negative) Urine WBC 1 (0-5) /hpf Ur Squamous Epith Cells <1 (0-4) /hpf Urine Mucus Rare H (None) /hpf Acetone, Qual Negative (Negative) Disposition Is patient prescribed a controlled substance at d/c from ED?: No Time of Disposition: 18:43 <Wander Oviedo - Last Filed: 11/07/19 18:38> <Ira Robbins - Last Filed: 11/08/19 14:35> Clinical Impression: Intractable nausea and vomiting Disposition: ADMITTED IP TO THIS HOSP Condition: Fair
[2019-11-07 15:49] LABS: HCT 40.3 % (39.0-53.0); HGB 13.2 gm/dL (13.0-17.5); MCH 28.2 pg (25.0-35.0); MCHC 32.8 g/dL (31.0-37.0); MCV 86.1 fL (80.0-100.0); Mean Platelet Volume 8.8; Platelet Count 205 k/uL (150-450); Poikilocytosis Slight; RBC 4.68 m/uL (4.30-5.90); RDW 14.4 % (11.5-15.5); WBC 6.2 k/uL (3.8-10.6)
[2019-11-07 16:13] LABS: ALT 19 U/L (4-49); AST 28 U/L (17-59); African American GFR (CKD) >90 (>60 ml/min/1.73 sqM); Albumin 4.6 g/dL (3.5-5.0); Alkaline Phosphatase 108 U/L (38-126); Anion Gap 13 mmol/L; Blood Urea Nitrogen 21 mg/dL (9-20); Calcium 9.4 mg/dL (8.4-10.2); Carbon Dioxide 34 mmol/L (22-30); Chloride 92 mmol/L (98-107); Glucose 223 mg/dL (74-99); Non-African American GFR(CKD) 86 (>60 ml/min/1.73 sqM); Potassium 3.8 mmol/L (3.5-5.1); Sodium 139 mmol/L (137-145); Total Bilirubin 1.2 mg/dL (0.2-1.3); Total Protein 7.2 g/dL (6.3-8.2)
[2019-11-07 16:19] LABS: Appearance,Urine Clear (Clear); Bilirubin,Urine Negative (Negative); Blood,Urine Negative (Negative); Color,Urine Yellow; Glucose,Urine (UA) 4+ (Negative); Leukocyte Esterase,Urine Negative (Negative); Mucus,Urine Rare /hpf; Nitrite,Urine Negative (Negative); Protein,Urine 1+ (Negative); Specific Gravity,Urine 1.021 (1.001-1.035); Squamous Epithelial Cell,Urine <1 /hpf (0-4); Urobilinogen,Urine <2.0 mg/dL (<2.0); WBC,Urine 1 /hpf (0-5)
[2019-11-07 16:44] LABS: Ketones,Urine 2+ (Negative)
[2019-11-07 16:50] LABS: Band Neutrophils % 1 %; Lymphocytes # (M) 0.37 k/uL (1.0-4.8); Monocytes # (M) 0.31 k/uL (0-1.0); Neutrophils % (M) 88 %; Nucleated Red Blood Cells 0 /100 WBC (0-0); Total Cells Counted 100
[2019-11-07] MEDS ORDERED: SODIUM CHLORIDE 0.9% 500 ML 500 ML IV STA (17:14)
[2019-11-07] MEDS ORDERED: diphenhydrAMINE 50 MG/ML 1 ML VIAL IVP STA (17:16)
[2019-11-07] MEDS ORDERED: METOCLOPRAMIDE 5 MG/ML 2 ML VIAL IVP STA (17:16)
[2019-11-07] MEDS ORDERED: TRIMETHOBENZAMIDE 100 MG/ML 2 ML VIAL IM STA (17:22)
[2019-11-07] MEDS ORDERED: LORazepam 2 MG/ML INJ IV PRN (18:43)
[2019-11-07] MEDS ORDERED: NALOXONE 0.4 MG/ML 1 ML VIAL IV PRN (18:43)
[2019-11-07] MEDS ORDERED: HYDROmorphone 0.5 MG/0.5 ML SYRINGE IVP PRN (18:43)
[2019-11-07] MEDS ORDERED: MORPHINE SULFATE 4 MG/ML SYRINGE IV PRN (18:43)
[2019-11-07] MEDS ORDERED: ONDANSETRON 4 MG/2 ML VIAL IVP PRN (18:43)
[2019-11-07] MEDS: SODIUM CHLORIDE 0.9% 1,000 ML IV SCH (19:12)
[2019-11-07] MEDS ORDERED: NON FORMULARY DRUG (Glucagon Emergency Kit 1 MG Kit) IM PRN (21:04)
[2019-11-07 21:14] LABS: Glucose,Whole Blood 205 mg/dL (75-99)
[2019-11-07] MEDS: TACROLIMUS 6 MG PO SCH (21:41)
[2019-11-07] MEDS: INSULIN ASPART (NovoLOG) 100 UNIT/ML VIAL SQ SCH (21:41)
[2019-11-07] MEDS: HEPARIN SODIUM,PORCINE 5,000 UNIT/ML 1 ML VIAL SQ SCH (21:42)
[2019-11-08 06:46] LABS: Glucose,Whole Blood 208 mg/dL (75-99)
[2019-11-08] MEDS: INSULIN ASPART (NovoLOG) 100 UNIT/ML VIAL SQ SCH ×4 (06:54→20:30)
[2019-11-08] MEDS ORDERED: PANTOPRAZOLE 40 MG TABLET PO SCH (07:30)
[2019-11-08] MEDS ORDERED: Tacrolimus [Envarsus Xr] 1 MG Tab.Er.24h PO SCH (09:00)
[2019-11-08] MEDS ORDERED: NON FORMULARY DRUG (Magnesium Chloride 64 MG Tablet.Er) PO SCH (09:00)
[2019-11-08] MEDS ORDERED: ASPIRIN 81 MG PO SCH (09:00)
[2019-11-08] MEDS: TACROLIMUS 6 MG PO SCH (09:43)
[2019-11-08] MEDS: FLUDROCORTISONE 0.1 MG TAB PO SCH (09:44)
[2019-11-08] MEDS: MIDODRINE 5 MG TAB PO SCH ×4 (09:44→20:31)
[2019-11-08] MEDS: buPROPion XL 150 MG TAB.ER.24H PO SCH (09:44)
[2019-11-08] MEDS: SULFAMETHOX-TMP 400-80MG 1 EACH TAB PO SCH (09:44)
[2019-11-08] MEDS: predniSONE 5 MG TAB PO SCH (09:44)
[2019-11-08] MEDS: HEPARIN SODIUM,PORCINE 5,000 UNIT/ML 1 ML VIAL SQ SCH ×2 (09:45→20:30)
[2019-11-08] MEDS ORDERED: METOCLOPRAMIDE 5 MG/ML 2 ML VIAL IVP SCH (12:00)
[2019-11-08 12:06] LABS: Glucose,Whole Blood 207 mg/dL (75-99)
--- NOTE | 2019-11-08 12:07 | XR ---
EXAMINATION TYPE: XR chest 1V DATE OF EXAM: 11/08/2019 COMPARISON: 10/09/2018 INDICATION: Baseline chest x-ray TECHNIQUE: Single frontal view of the chest is obtained. FINDINGS: The heart size is normal. The pulmonary vasculature is normal. Couple of small linear opacities are in the periphery of the left lower lung field most likely on the basis of atelectasis. Lungs are otherwise clear. IMPRESSION: 1. Minimal peripheral plate atelectasis left lung. Lung curran are otherwise clear.
[2019-11-08] MEDS: PANTOPRAZOLE 40 MG/10 ML VIAL IVP SCH ×2 (12:25→20:31)
[2019-11-08 12:52] LABS: C Reactive Protein 10.6 mg/L (<10.0)
[2019-11-08 12:55] LABS: D-Dimer 0.25 mg/L FEU (<0.60); Prothrombin Time 10.5 sec (9.0-12.0)
--- NOTE | 2019-11-08 16:07 | HP ---
HISTORY AND PHYSICAL DATE OF SERVICE: 11/08/2019 CHIEF COMPLAINTS: Nausea, vomiting. HISTORY OF PRESENT ILLNESS: This is a 34-year-old gentleman with a past medical history of multiple medical problems including diabetes mellitus type 2, history of hypertension, hyperlipidemia, history of dizziness, history of previous DKA, history of gastroparesis, recently had a renal transplant in [facility]. The patient also had diabetic retinopathy. Patient apparently was going to the beach and fell down and have suffered multiple scratches over the right leg. The patient is not feeling well over the past 2 days. Patient had nausea, vomiting, unable to keep anything down. Patient came to [facility] and was admitted for further evaluation and treatment. The patient's troponin is only 0.051 and LDH was 160 and 71 and C-reactive protein is elevated to 10.6. The possibility of sepsis is being considered at this time. There is no history of fever, rigors. No history of headache, loss of consciousness, seizures. PAST MEDICAL HISTORY: History of diabetes mellitus type 2, GERD, hypertension, hyperlipidemia, history of previous DKA, history of depression. MEDICATIONS: Home medications are prednisone, CellCept, Wellbutrin, Inversus, Bactrim DS, omeprazole, midodrine, magnesium oxide, loratadine, lidocaine, insulin NPH, NovoLog, Lantus, glucagon, Florinef, vitamin D3, calcium citrate, Lipitor, Ecotrin, ondansetron, Prilosec. ALLERGIES: REGLAN. FAMILY HISTORY: No history of heart disease or strokes in the family. SOCIAL HISTORY: History of smoking. No history of alcohol intake. REVIEW OF SYSTEMS: ENT: No diminished hearing or vision. CARDIOVASCULAR: No angina. RESPIRATION: No cough. GI: As mentioned earlier. GI: As mentioned earlier. NERVOUS SYSTEM: No numbness or weakness. ALLERGY/IMMUNOLOGY: No asthma or hayfever. MUSCULOSKELETAL: As mentioned earlier. HEMATOLOGY: No history of anemia. ENDOCRINE: As mentioned earlier. CONSTITUTIONAL: As mentioned earlier. DERMATOLOGY: Negative. CONSTITUTIONAL: As mentioned earlier. PSYCHIATRY: As mentioned earlier. PHYSICAL EXAMINATION: Patient is alert and oriented x3, pulse 114, blood pressure 160/106, respiration 16, temp 98.4, pulse ox 97% on room air. HEENT: Conjuntivae normal, oral mucosa moist. NECK: No jugular venous distention. No lymph node enlargement. CARDIOVASCULAR: S1, S2 muffled. RESPIRATION: Breath sounds diminished at the bases. No rhonchi. No crackles. ABDOMEN: Soft, nontender. No mass palpable. Mild diffuse discomfort on present. LEGS: No edema, no swelling. Significant ulcerations and cellulitis present. LYMPHATICS: No lymph node enlargement. SKIN: As mentioned earlier. NERVOUS SYSTEM: As mentioned earlier. EXTREMITIES: Moves all four limbs. No focal motor deficit. JOINTS: No active deformity. LABS: WBC 6.2, hemoglobin 13.2 sodium 139, potassium 3.8, glucose 223. Troponin 0.051. ASSESSMENT: 1. Nausea, vomiting with possible cellulitis and sepsis in an immunocompromised individual. 2. History of recent renal transplant. 3. Troponin 0.05 indeterminate, rule out acute dxb-NT-huycssy-elevation myocardial infarction. 4. Increased LDH and CRP. 5. Diffuse skin ulcerations. 6. Diabetes mellitus type 2. 7. Gastroesophageal reflux disease. 8. Diabetic retinopathy. 9. Diabetic peripheral neuropathy. 10.Hypertension. 11.Hyperlipidemia. 12.History of previous DKA. 13.History of previous gastroparesis. 14.History of vitrectomy. 15.History of depression. 16.FULL CODE. RECOMMENDATION: In this 34-year-old gentleman who presented with multiple complex medical issues, will monitor the patient closely, continue with the current management. Will obtain cultures, broad-spectrum IV antibiotics; otherwise, I would also get Infectious Disease evaluation. Resume the home medications. Repeat labs, nephrology evaluation. The prognosis extremely guarded because of multiple complex medical issues. Further recommendations to follow. Symptomatic treatment provided and proton pump inhibitors. DVT prophylaxis. Discussed with the patient's family who understands. A copy of this forwarded to Dr. Hurtado who is the primary physician. This patient has got possibly life-threatening medical condition at this time indicating infection, possible sepsis in a patient who has recent renal transplant and who is immunocompromised. Recommend a full admit lasting for more than 2 midnights to evaluate and treat the above mentioned multiple complex medical issues. MMODL / IJN: [id number] /
[2019-11-08] MEDS: ONDANSETRON 4 MG/2 ML VIAL IVP PRN (16:31)
[2019-11-08] MEDS: amLODIPine 10 MG TAB PO SCH (16:31)
[2019-11-08 17:20] LABS: Glucose,Whole Blood 233 mg/dL (75-99)
--- NOTE | 2019-11-08 17:35 | ECHOF ---
Referral Reason:elevated blood pressure MEASUREMENTS -------- HEIGHT: 180.3 cm WEIGHT: 61.2 kg BP: RVIDd: 1.8 cm (< 3.3) IVSd: 1.4 cm (0.6 - 1.1) LVIDd: 3.9 cm (3.9 - 5.3) LVPWd: 1.4 cm (0.6 - 1.1) IVSs: 1.8 cm LVIDs: 2.3 cm LVPWs: 2.0 cm Ao Diam: 2.8 cm (2.0 - 3.7) AV Cusp: 2.1 cm (1.5 - 2.6) LA Diam: 3.2 cm (2.7 - 3.8) MV EXCURSION: 15.965 mm (> 18.000) MV EF SLOPE: 109 mm/s (70 - 150) EPSS: 0.7 cm MV E Hilton: 1.01 m/s MV DecT: 147 ms MV A Hilton: 1.20 m/s MV E/A Ratio: 0.84 RAP: 5.00 mmHg RVSP: 20.28 mmHg FINDINGS -------- This was a technically good study. The left ventricular size is normal. There is moderate concentric left ventricular hypertrophy. O verall left ventricular systolic function is normal with, an EF between 55 - 60 %. The right ventricle is normal in size. The left atrial size is normal. The right atrial size is normal. The aortic valve is trileaflet and appears structurally normal. The mitral valve is normal. There is trace mitral regurgitation. The tricuspid valve appears structurally normal. Trace tricuspid regurgitation present. Right josé tricular systolic pressure is normal at < 35 mmHg. There is no pulmonic regurgitation present. The aortic root size is normal. Normal inferior vena cava with normal inspiratory collapse consistent with estimated right atrial pre ssure of 5 mmHg. There is no pericardial effusion. CONCLUSIONS -------- 1. The left ventricular size is normal. 2. There is moderate concentric left ventricular hypertrophy. 3. Overall left ventricular systolic function is normal with, an EF between 55 - 60 %. 4. There is trace mitral regurgitation. 5. Trace tricuspid regurgitation present. 6. There is no pericardial effusion. REMELT OPERATOR: Susu Wray RDCS
[2019-11-08] MEDS: INSULIN DETEMIR (LEVEMIR) 100 UNIT/ML SYR SQ SCH (18:00)
[2019-11-08] MEDS: SODIUM CHLORIDE 0.9% 1,000 ML IV SCH (19:20)
[2019-11-08 20:20] LABS: Glucose,Whole Blood 178 mg/dL (75-99)
[2019-11-08] MEDS: CHOLECALCIFEROL 1,000 UNIT TAB PO SCH (20:30)
[2019-11-08] MEDS: ATORVASTATIN 40 MG TAB PO SCH (20:30)
--- NOTE | 2019-11-08 21:44 | P.CONS ---
History of Present Illness - Reason for Consult Consult date: 11/08/19 Sepsis Requesting physician: Anil Haji - Chief Complaint Nausea and vomiting x 2 days - History of Present Illness Patient is a 34-year-old male with a past medical history significant for type 1 diabetes mellitus gastroparesis recently renal transplant done at [facility] in August 2019, patient presenting to the ER at [facility] history for evaluation of persistent nausea and vomiting and unable to keep anything down, patient denies having any abdominal pain. Denies having any diarrhea denies having any fever or any chills denies having any chest pain or shortness of breath or cough and no urinary symptoms with these symptoms the patient was evaluated by the physician on arrival to the ER patient did have low-grade fever of 99.2, the patient did have a normal white count and mild lymphopenia liver enzymes were normal, creatinine is normal at 1.11, UA has been negative, patient did have a chest x-ray with minimal peripheral plate atelectasis left lung once these are otherwise clear patient has been empirically started on Rocephin 1 g daily infectious disease was consulted for further management and concern for possible sepsis Review of Systems Positive point has been mentioned in the HPI rest of the systems are negative Past Medical History Past Medical History: Diabetes Mellitus, Eye Disorder, GERD/Reflux, Hyperlipidemia, Hypertension, Renal Disease Additional Past Medical History / Comment(s): past DKA, neuropathy bilateral feet, diabetic nephropathy/ESRD with hemodialysis M/W/F [facility], diabetic retinopathy/bleeds bilaterally-pt legally blind, gastroparesis with botox treatment, esophagitis, hiatal hernia, History of Any Multi-Drug Resistant Organisms: None Reported Past Surgical History: Hernia Repair Additional Past Surgical History / Comment(s): Vitrectomy right eye, 04/2017 bilateral laser eye surgery for retinal bleeds unsuccessful, eye injections, EGD, colonoscopy, dialysis cath placed rt upper chest on 12-03-17, graft rt forearm 10/06/18 for dialysis, L inguinal hernia repair, kidney transplant- left Past Anesthesia/Blood Transfusion Reactions: Postoperative Nausea & Vomiting (PONV) Additional Past Anesthesia/Blood Transfusion Reaction / Comm: clausterphobia, Pt has received multiple transfusions. Past Psychological History: Depression Additional Psychological History / Comment(s): . Smoking Status: Never smoker Past Alcohol Use History: None Reported Additional Past Alcohol Use History / Comment(s): Quit smoking 09/2018 started smoking AT AGE 18 smoked 1 ppd Past Drug Use History: None Reported Additional Drug Use History / Comment(s): rare use of cbd oil - Past Family History Father Family Medical History: No Reported History Additional Family Medical History / Comment(s): Father is healthy Mother Family Medical History: No Reported History Additional Family Medical History / Comment(s): Mother is healthy. Medications and Allergies Home Medications Medication Instructions Recorded Confirmed Type Omeprazole 20 mg PO BID@0900,209908/28/17 11/07/19 History Aspirin EC [Ecotrin Low Dose] 81 mg PO DAILY@0900 05/18/18 11/07/19 History Insulin Aspart [NovoLOG Flexpen] 2 - 16 unit SQ ACHS 11/02/18 11/07/19 History Insulin Glargine,Hum.rec.anlog 26 units SQ DAILY@1800 11/02/18 11/07/19 History [Ihsan Alvarado] Atorvastatin [Lipitor] 40 mg PO HS@209911/07/19 11/07/19 History Calcium Citrate 250 mg PO BID@0900,209911/07/19 11/07/19 History Cholecalciferol [Vitamin D3 (25 2,000 unit PO HS@209911/07/19 11/07/19 History Mcg = 1000 Iu)] Fludrocortisone [Florinef] 0.1 mg PO DAILY@89911/07/19 11/07/19 History Glucagon Emergency Kit 1 mg IM ONCE PRN 11/07/19 11/07/19 History Insulin NPH Human Isophane 14 units SQ DAILY 11/07/19 11/07/19 History [NovoLIN N] Lidocaine-Prilocaine Cream [Emla 1 applic TOPICAL DAILY PRN 11/07/19 11/07/19 History Cream 2.5%/2.5%] Loratadine [Claritin] 10 mg PO DAILY@89911/07/19 11/07/19 History Magnesium Chloride [Slow Mag] 128 mg PO DAILY@89911/07/19 11/07/19 History Midodrine HCl 10 mg PO TID@0900,1400,209911/07/19 11/07/19 History Omeprazole [PriLOSEC] 20 mg PO AC-VIRGILIOKFST #14 cap 11/07/19 Rx Ondansetron Odt [Zofran Odt] 4 mg PO Q8HR PRN #30 tab 11/07/19 Rx Sulfamethox-Tmp 400-80Mg [Bactrim 1 tab PO DAILY@89911/07/19 11/07/19 History SS 400-80 mg] Tacrolimus [Envarsus Xr] 6 mg PO DAILY@89911/07/19 11/07/19 History buPROPion XL [Wellbutrin Xl] 150 mg PO DAILY@89911/07/19 11/07/19 History mycophenolate mofetiL [Cellcept] 1,000 mg PO BID@0900,2100 11/07/19 11/07/19 History predniSONE 5 mg PO DAILY@89911/07/19 11/07/19 History Allergies Allergy/AdvReac Type Severity Reaction Status Date / Time metoclopramide [From Reglan] Allergy ITCHY Verified 11/07/19 19:53 FEELING " Physical Exam Vitals: Vital Signs Temp Pulse Pulse Resp BP BP Pulse Ox 11/08/19 15:21 98.7 F 104 H 16 175/104 97 11/08/19 08:05 98.4 F 114 H 16 169/106 97 11/08/19 04:13 98.5 F 116 H 18 146/98 98 11/07/19 19:56 98.6 F 106 H 18 171/103 98 11/07/19 19:14 98.2 F 108 H 18 172/102 98 11/07/19 17:43 111 H 20 160/94 97 Intake and Output 11/08/19 11/08/19 11/08/19 06:59 14:59 22:59 Other: Voiding Method Toilet Toilet # Voids 1 1 GENERAL DESCRIPTION: Middle-aged male lying in bed, no distress. No tachypnea or accessory muscle of respiration use. HEENT: Shows Pallor , no scleral icterus. Oral mucous membrane is dry. No pharyngeal erythema or thrush NECK: Trachea central, no thyromegaly. LUNGS: Unlabored breathing. Decreased breath sounds at bases. No wheeze or crackle. HEART: S1, S2, regular rate and rhythm. No loud murmur ABDOMEN: Soft, no tenderness , guarding or rigidity, no organomegaly EXTREMITIES: No edema of feet. SKIN: No rash, no masses palpable. NEUROLOGICAL: The patient is awake, alert, oriented x3, mood and affect normal. Results CBC & Chem 7: 11/07/19 15:30 11/07/19 15:30 Labs: Abnormal Lab Results - Last 24 Hours (Table) 11/07/19 11/07/19 11/07/19 Range/Units 15:30 15:30 21:12 Lymphocytes # (Manual) 0.37 L (1.0-4.8) k/uL POC Glucose (mg/dL) 205 H (75-99) mg/dL Lactate Dehydrogenase (313-618) U/L Troponin I (0.000-0.034) ng/mL C-Reactive Protein (<10.0) mg/L Urine Protein 1+ H (Negative) Urine Glucose (UA) 4+ H (Negative) Urine Ketones 2+ H (Negative) Urine Mucus Rare H (None) /hpf 11/08/19 11/08/19 11/08/19 Range/Units 06:44 12:05 12:10 Lymphocytes # (Manual) (1.0-4.8) k/uL POC Glucose (mg/dL) 208 H 207 H (75-99) mg/dL Lactate Dehydrogenase (313-618) U/L Troponin I 0.051 H* (0.000-0.034) ng/mL C-Reactive Protein (<10.0) mg/L Urine Protein (Negative) Urine Glucose (UA) (Negative) Urine Ketones (Negative) Urine Mucus (None) /hpf 11/08/19 Range/Units 12:15 Lymphocytes # (Manual) (1.0-4.8) k/uL POC Glucose (mg/dL) (75-99) mg/dL Lactate Dehydrogenase 1671 H (313-618) U/L Troponin I (0.000-0.034) ng/mL C-Reactive Protein 10.6 H (<10.0) mg/L Urine Protein (Negative) Urine Glucose (UA) (Negative) Urine Ketones (Negative) Urine Mucus (None) /hpf Assessment and Plan Assessment: 1- patient presented to the hospital for intractable nausea and vomiting unable to keep anything down and no abdominal pain no diarrhea no significant respiratory symptoms or URI symptoms and no high-grade fever however the patient is on immunosuppressive medication after recent renal transplant, chest x-ray revealed some atelectasis And the patient did have mild lymphopenia underlying Covid 19 infection needs to be ruled out, less likely but not entirely excluded versus viral gastroenteritis (1) Suspected COVID-19 virus infection Current Visit: Yes Status: Acute Code(s): Z20.828 - CONTACT W AND EXPOSURE TO OTH VIRAL COMMUNICABLE DISEASES SNOMED Code(s): 734538304 (2) Gastroenteritis Current Visit: Yes Status: Acute Code(s): K52.9 - NONINFECTIVE GASTROENTERITIS AND COLITIS, UNSPECIFIED SNOMED Code(s): 07700158 Plan: 1- await Aguilar virus PCR, CRP and LDH 2-we will also check a pro-calcitonin level 3- if develops diarrhea to check stool studies 4-continue empiric Rocephin We will follow on clinical condition and cultures to further adjust medication if needed Thank you for this consultation will follow this patient with you Time with Patient: Greater than 30
[2019-11-09] MEDS: SODIUM CHLORIDE 0.9% 1,000 ML IV SCH ×2 (00:18→12:47)
[2019-11-09 06:29] LABS: Glucose,Whole Blood 97 mg/dL (75-99)
[2019-11-09] MEDS: INSULIN ASPART (NovoLOG) 100 UNIT/ML VIAL SQ SCH ×4 (06:30→21:43)
[2019-11-09] MEDS: ONDANSETRON 4 MG/2 ML VIAL IVP PRN (07:57)
[2019-11-09] MEDS: TACROLIMUS 6 MG PO SCH (08:56)
[2019-11-09] MEDS: PANTOPRAZOLE 40 MG/10 ML VIAL IVP SCH ×2 (08:56→21:42)
[2019-11-09] MEDS: HEPARIN SODIUM,PORCINE 5,000 UNIT/ML 1 ML VIAL SQ SCH ×2 (08:56→21:37)
[2019-11-09] MEDS: amLODIPine 10 MG TAB PO SCH (08:56)
[2019-11-09] MEDS: MIDODRINE 5 MG TAB PO SCH (08:57)
[2019-11-09] MEDS: buPROPion XL 150 MG TAB.ER.24H PO SCH (08:57)
[2019-11-09] MEDS: SULFAMETHOX-TMP 400-80MG 1 EACH TAB PO SCH (08:57)
[2019-11-09] MEDS: predniSONE 5 MG TAB PO SCH (08:57)
[2019-11-09] MEDS: FLUDROCORTISONE 0.1 MG TAB PO SCH (08:57)
[2019-11-09 09:16] LABS: African American GFR (CKD) >90 (>60 ml/min/1.73 sqM); Anion Gap 9 mmol/L; Blood Urea Nitrogen 14 mg/dL (9-20); Calcium 9.1 mg/dL (8.4-10.2); Carbon Dioxide 30 mmol/L (22-30); Chloride 97 mmol/L (98-107); Glucose 88 mg/dL (74-99); Non-African American GFR(CKD) >90 (>60 ml/min/1.73 sqM); Potassium 3.7 mmol/L (3.5-5.1); Sodium 136 mmol/L (137-145)
--- NOTE | 2019-11-09 09:44 | P.CRDCN ---
History of Present Illness History of present illness: HISTORY OF PRESENTING ILLNESS This is a pleasant 34-year-old male past medical history significant for running kidney disease status post recent renal transplantation, diabetes mellitus type 1, hypertension, dyslipidemia, gastroparesis and gastroesophageal reflux disease. Denies prior history of coronary artery disease and does not follow in the office with a program development specialist. We have been asked to see in consultation for elevated troponin. He states he presented to the hospital with symptoms of nausea and vomiting. He has been out of his omeprazole for a few days prior. He denies symptoms of chest pain, shortness of breath, dizziness or palpitations. Due to his persistent nausea vomiting and inability to keep down fluids he was also unable to take his antirejection medications which prompted him to come to the hospital for further evaluation. Blood pressures have been running elevated since admission. Primary care team initiated amlodipine 10 mg daily. Echocardiogram obtained on admission reveals preserved LV systolic function with ejection fraction 55-60%. DIAGNOSTICS EKG reveals sinus tachycardia. Chest xray minimal peripheral plate atelectasis of the left lung otherwise clear. Laboratory reviewed, CBC unremarkable, d-dimer 0.25, troponin 0.051, sodium 136, potassium 3.7, creatinine 0.88. Current cardiac medications include aspirin 81 mg daily and atorvastatin 40 mg daily. REVIEW OF SYSTEMS At the time of my exam: CONSTITUTIONAL: Denies fever or chills. CARDIOVASCULAR: Denies chest pain, shortness of breath, orthopnea, PND or palpitations. RESPIRATORY: Denies cough. GASTROINTESTINAL: Denies abdominal pain, diarrhea, constipation, nausea or vom iting. MUSCULOSKELETAL: Denies myalgias. NEUROLOGIC: Denies numbness, tingling or weakness. ENDOCRINE: Denies fatigue, weight change, polydipsia or polyurina. GENITOURINARY: Denies burning, hematuria or urgency with micturation. HEMATOLOGIC: Denies history of anemia or bleeding. PHYSICAL EXAMINATION Blood pressure 164/101 heart rate 108 afebrile and maintaining oxygen saturation on room air. CONSTITUTIONAL: No apparent distress. Frail. HEENT: Head is normocephalic. Pupils are equal, round. Sclerae anicteric. Mucous membranes of the mouth are moist. No JVD. No carotid bruit. CHEST EXAMINATION: Lungs are clear to auscultation. No chest wall tenderness is noted on palpation or with deep breathing. HEART EXAMINATION: Regular rate and rhythm. S1, S2 heard. No murmurs, gallops or rub. ABDOMEN: Soft, nontender. Positive bowel sounds. EXTREMITIES: 2+ peripheral pulses, no lower extremity edema and no calf tenderness. NEUROLOGIC EXAMINATION: Patient is awake, alert and oriented x3. ASSESSMENT Minimal troponin of unclear significance Nausea and vomiting Gastroparesis Diabetes mellitus, type I End-stage renal disease status post recent transplantation Hypertension Dyslipidemia PLAN Obtain second troponin to assess trend. Echocardiogram reveals normal LV systolic function with no wall motion abnormalities. Troponin leak is of unclear significance. The patient has no symptoms of chest pain or shortness of breath. Ongoing medical management. Recommend outpatient stress test in the office. Thank you kindly for this consultation. Nurse Practitioner note has been reviewed, I agree with a documented findings and plan of care. Patient was seen and examined. Past Medical History Past Medical History: Diabetes Mellitus, Eye Disorder, GERD/Reflux, Hyperlipidemia, Hypertension, Renal Disease Additional Past Medical History / Comment(s): past DKA, neuropathy bilateral feet, diabetic nephropathy/ESRD with hemodialysis M/W/F [facility], diabetic retinopathy/bleeds bilaterally-pt legally blind, gastroparesis with botox treatment, esophagitis, hiatal hernia, History of Any Multi-Drug Resistant Organisms: None Reported Past Surgical History: Hernia Repair Additional Past Surgical History / Comment(s): Vitrectomy right eye, 04/2017 bilateral laser eye surgery for retinal bleeds unsuccessful, eye injections, EGD, colonoscopy, dialysis cath placed rt upper chest on 12-03-17, graft rt forearm 10/06/18 for dialysis, L inguinal hernia repair, kidney transplant- left Past Anesthesia/Blood Transfusion Reactions: Postoperative Nausea & Vomiting (PONV) Additional Past Anesthesia/Blood Transfusion Reaction / Comment(s): clausterphob ia, Pt has received multiple transfusions. Past Psychological History: Depression Additional Psychological History / Comment(s): . Smoking Status: Never smoker Past Alcohol Use History: None Reported Additional Past Alcohol Use History / Comment(s): Quit smoking 09/2018 started smoking AT AGE 18 smoked 1 ppd Past Drug Use History: None Reported Additional Drug Use History / Comment(s): rare use of cbd oil - Past Family History Father Family Medical History: No Reported History Additional Family Medical History / Comment(s): Father is healthy Mother Family Medical History: No Reported History Additional Family Medical History / Comment(s): Mother is healthy. Medications and Allergies Home Medications Medication Instructions Recorded Confirmed Type Omeprazole 20 mg PO BID@0900,209908/28/17 11/07/19 History Aspirin EC [Ecotrin Low Dose] 81 mg PO DAILY@0905/18/18 11/07/19 History Insulin Aspart [NovoLOG Flexpen] 2 - 16 unit SQ ACHS 11/02/18 11/07/19 History Insulin Glargine,Hum.rec.anlog 26 units SQ DAILY@1800 11/02/18 11/07/19 History [Toyvette Solostar] Atorvastatin [Lipitor] 40 mg PO HS@209911/07/19 11/07/19 History Calcium Citrate 250 mg PO BID@899,209911/07/19 11/07/19 History Cholecalciferol [Vitamin D3 (25 2,000 unit PO HS@209911/07/19 11/07/19 History Mcg = 1000 Iu)] Fludrocortisone [Florinef] 0.1 mg PO DAILY@89911/07/19 11/07/19 History Glucagon Emergency Kit 1 mg IM ONCE PRN 11/07/19 11/07/19 History Insulin NPH Human Isophane 14 units SQ DAILY 11/07/19 11/07/19 History [NovoLIN N] Lidocaine-Prilocaine Cream [Emla 1 applic TOPICAL DAILY PRN 11/07/19 11/07/19 Hi story Cream 2.5%/2.5%] Loratadine [Claritin] 10 mg PO DAILY@89911/07/19 11/07/19 History Magnesium Chloride [Slow Mag] 128 mg PO DAILY@89911/07/19 11/07/19 History Midodrine HCl 10 mg PO TID@0900,1400,209911/07/19 11/07/19 History Omeprazole [PriLOSEC] 20 mg PO AC-BRKFST #14 cap 11/07/19 Rx Ondansetron Odt [Zofran Odt] 4 mg PO Q8HR PRN #30 tab 11/07/19 Rx Sulfamethox-Tmp 400-80Mg [Bactrim 1 tab PO DAILY@89911/07/19 11/07/19 History SS 400-80 mg] Tacrolimus [Envarsus Xr] 6 mg PO DAILY@89911/07/19 11/07/19 History buPROPion XL [Wellbutrin Xl] 150 mg PO DAILY@89911/07/19 11/07/19 History mycophenolate mofetiL [Cellcept] 1,000 mg PO BID@0900,2100 11/07/19 11/07/19 History predniSONE 5 mg PO DAILY@89911/07/19 11/07/19 History Allergies Allergy/AdvReac Type Severity Reaction Status Date / Time metoclopramide [From Reglan] Allergy ITCHY Verified 11/07/19 19:53 FEELING " Physical Exam Vitals: Vital Signs Temp Pulse Resp BP Pulse Ox 11/09/19 03:30 98.9 F 105 H 18 150/94 98 11/08/19 20:15 99.2 F 107 H 17 157/94 98 11/08/19 15:21 98.7 F 104 H 16 175/104 97 11/08/19 08:05 98.4 F 114 H 16 169/106 97 Intake and Output 11/08/19 11/09/19 11/09/19 22:59 06:59 14:59 Output Total 550 1545 Balance -550 -1545 Output: Urine 550 1545 Other: Voiding Method Urinal Urinal # Voids 1 Results 11/07/19 15:30 11/09/19 08:48 Cardiac Enzymes 11/08/19 11/08/19 Range/Units 12:10 12:15 Lactate Dehydrogenase 1671 H (313-618) U/L Troponin I 0.051 H* (0.000-0.034) ng/mL Coagulation 11/08/19 Range/Units 12:15 PT 10.5 (9.0-12.0) sec Current Medications Generic Name Dose Route Start Last Admin Trade Name Freq PRN Reason Stop Dose Admin Amlodipine Besylate 10 mg 11/08/19 16:30 11/08/19 16:31 Amlodipine 10 Mg Tab PO 10 mg DAILY [facility] Administration Atorvastatin Calcium 40 mg 11/08/19 21:00 11/08/19 20:30 Atorvastatin 40 Mg Tab PO 40 mg HS@2100 [facility] Administration Bupropion HCl 150 mg 11/08/19 09:00 11/08/19 09:44 Bupropion Xl 150 Mg Tab.Er.24h PO 150 mg DAILY@0900 [facility] Administration Cholecalciferol 2,000 unit 11/08/19 21:00 11/08/19 20:30 Cholecalciferol 1,000 Unit Tab PO 2,000 unit HS@2100 [facility] Administration Fludrocortisone Acetate 0.1 mg 11/08/19 09:00 11/08/19 09:44 Fludrocortisone 0.1 Mg Tab PO 0.1 mg DAILY@0900 [facility] Administration Heparin Sodium (Porcine) 5,000 unit 11/07/19 21:30 11/08/19 20:30 Heparin Sodium,Porcine 5,000 Unit/Ml 1 Ml Vial SQ 5,000 unit Q12HR [facility] Administration Hydromorphone HCl 0.5 mg 11/07/19 18:43 Hydromorphone 0.5 Mg/0.5 Ml Syringe IVP Q3HR PRN Moderate Pain Sodium Chloride 1,000 mls @ 75 mls/hr 11/07/19 18:45 11/09/19 00:18 Saline 0.9% IV 75 mls/hr .[id number] [facility] Administration Ceftriaxone Sodium 1 gm/ 50 mls @ 100 mls/hr 11/08/19 12:15 11/08/19 12:26 Sodium Chloride IVPB 100 mls/hr Q24HR [facility] Administration Insulin Aspart 0 unit 11/07/19 21:20 11/09/19 06:30 Insulin Aspart (Novolog) 100 Unit/Ml Vial SQ Not Given ACHS [facility] Protocol Insulin Detemir 26 unit 11/08/19 18:00 11/08/19 18:00 Insulin Detemir (Levemir) 100 Unit/Ml Syr SQ 26 unit DAILY@1800 [facility] Administration Lorazepam 0.5 mg 11/07/19 18:43 Lorazepam 2 Mg/Ml Inj IV Q6HR PRN Anxiety Midodrine 10 mg 11/08/19 09:00 11/08/19 20:31 Midodrine 5 Mg Tab PO Not Given TID@0900,1399,2100 [facility] Morphine Sulfate 4 mg 11/07/19 18:43 Morphine Sulfate 4 Mg/Ml Syringe IV Q4HR PRN Severe Pain Mycophenolate Mofetil 1,000 mg 11/07/19 21:22 11/08/19 20:31 Mycophenolate Mofetil 500 Mg Tab PO 1,000 mg BID@0900,2099 [facility] Administration Naloxone HCl 0.2 mg 11/07/19 18:43 Naloxone 0.4 Mg/Ml 1 Ml Vial IV Q2M PRN Opioid Reversal Tacrolimus [Envarsus 6 mg 11/07/19 21:23 11/08/19 09:43 Xr] 6 Mg PO 6 mg DAILY@0900 [facility] Administration Ondansetron HCl 4 mg 11/08/19 16:19 11/08/19 16:31 Ondansetron 4 Mg/2 Ml Vial IVP 4 mg Q6HR PRN Administration Nausea And Vomiting Pantoprazole Sodium 40 mg 11/08/19 11:45 11/08/19 20:31 Pantoprazole 40 Mg/10 Ml Vial IVP 40 mg BID [facility] Administration Prednisone 5 mg 11/08/19 09:00 11/08/19 09:44 Prednisone 5 Mg Tab PO 5 mg DAILY@0900 [facility] Administration Trimethoprim/Sulfamethoxazole 1 each 11/08/19 09:00 11/08/19 09:44 Sulfamethox-Tmp 400-80mg 1 Each Tab PO 1 each DAILY@0900 [facility] Administration Intake and Output 11/08/19 11/09/19 11/09/19 22:59 06:59 14:59 Output Total 550 1545 Balance -550 -1545 Output: Urine 550 1545 Other: Voiding Method Urinal Urinal # Voids 1 11/07/19 15:30 11/07/19 15:30
[2019-11-09 09:54] LABS: Basophils % (A) 1 %; Eosinophils # (A) 0.1 k/uL (0-0.7); Eosinophils % (A) 1 %; HCT 37.5 % (39.0-53.0); HGB 12.4 gm/dL (13.0-17.5); Lymphocytes # (A) 0.4 k/uL (1.0-4.8); Lymphocytes % (A) 8 %; MCH 28.5 pg (25.0-35.0); MCHC 33.2 g/dL (31.0-37.0); MCV 86.1 fL (80.0-100.0); Mean Platelet Volume 8.5; Monocytes # (A) 0.5 k/uL (0-1.0); Monocytes % (A) 9 %; Neutrophils # (A) 4.2 k/uL (1.3-7.7); Neutrophils % (A) 79 %; Platelet Count 191 k/uL (150-450); Poikilocytosis Slight; RBC 4.36 m/uL (4.30-5.90); RDW 14.5 % (11.5-15.5); WBC 5.3 k/uL (3.8-10.6)
[2019-11-09] MEDS ORDERED: PROCHLORPERAZINE 10 MG TAB PO PRN (11:00)
[2019-11-09 12:13] LABS: Glucose,Whole Blood 124 mg/dL (75-99)
[2019-11-09] MEDS: ONDANSETRON 4 MG/2 ML VIAL IVP SCH ×2 (12:47→17:07)
--- NOTE | 2019-11-09 15:50 | CONS ---
CONSULTATION REASON FOR CONSULT: Status post renal transplant. HISTORY OF PRESENT ILLNESS: Patient is a 34-year-old male with type 1 diabetes, end-stage renal disease, who was on hemodialysis and is currently status post -donor transplant at [facility] almost a year ago. Patient was admitted to the hospital with complaints of significant nausea and vomiting. He stated that he was out of Protonix for about 5-6 days. He denied any fevers or chills. No diarrhea. No significant abdominal pain. Serum creatinine was 1.1 mg/dL and it is now down to 0.8. Patient is maintained on IV fluids. He states he is feeling slightly better than on initial admission. PAST MEDICAL HISTORY: End-stage renal disease from diabetic nephropathy, nephrosclerosis, status post -donor transplant at [facility] in August of this year and currently doing well, type 1 diabetes, gastroesophageal reflux disease, diabetic gastroparesis, hyperlipidemia, hypertension, neuropathy, retinopathy, hiatal hernia, esophagitis. PAST SURGICAL HISTORY: Renal transplant August of 2019, vitrectomy, colonoscopy, EGD, dialysis catheter placement, AV graft, inguinal hernia repair. SOCIAL HISTORY: Negative for smoking, drug abuse or alcohol. MEDICATIONS AT HOME: Medications at home prior to admission included omeprazole, aspirin, insulin, Lipitor, calcium, Florinef, magnesium, midodrine, omeprazole, Bactrim, Wellbutrin, Envarsus, CellCept, prednisone. ALLERGIES: ALLERGIES include REGLAN, which causes itching. REVIEW OF SYSTEMS: As per HPI. Other systems negative. PHYSICAL EXAMINATION: Patient is comfortable, awake, alert, oriented x3, not in any acute distress. Blood pressure was 150/94, heart rate 105 per minute. Patient is afebrile. EXAMINATION OF THE HEART: S1 and S2. EXAMINATION OF LUNGS: Decreased breath sounds at bases. ABDOMEN: Soft, non-tender. Examination of lower extremities shows no evidence of edema. Renal allograft is non-tender. MELTING OPERATOR exam is grossly intact. LABS: Labs show sodium 136, potassium 3.7, chloride 97. CO2 is 30, BUN 14, creatinine 0.8, hemoglobin 12.4 g/dL. UA shows 1+ protein, glucose 4+, ketones 2+. ASSESSMENT: 1. Acute kidney injury, prerenal, currently significantly improved. 2. Status post -donor transplant in August of 2019 at [facility], currently maintained on CellCept, prednisone and tacrolimus. 3. History of severe orthostatic hypotension, maintained on midodrine. At this time blood pressure is high and I will discontinue the midodrine. 4. Nausea and vomiting associated with gastroparesis, some gastritis due to patient being off of proton pump inhibitors. He is currently back on it and symptoms are slightly improved. PLAN: Continue with IV fluids. Encourage increased oral intake. Continue immunosuppressive medications. Discontinue midodrine for now. Hold off on the Florinef as well. Thank you for this consultation. Will continue to follow the patient with you during his hospitalization. MMODL / IJN: [id number] /
[2019-11-09] MEDS: METOPROLOL TARTRATE 25 MG TAB PO SCH (17:07)
[2019-11-09 17:08] LABS: Glucose,Whole Blood 209 mg/dL (75-99)
--- NOTE | 2019-11-09 17:38 | PN ---
PROGRESS NOTE DATE OF SERVICE: 11/09/2019 This 34-year-old gentleman admitted with nausea and vomiting is being closely monitored. Patient still has some nausea. The patient had multiple workups, including cardiac workup as well as nephrology workup. Ejection fraction was found to be 50% to 60%. The patient was started on empiric antibiotics. Cultures are pending at this time: COVID-19 is being ruled out. No chest pain. No palpitations. No fever. PHYSICAL EXAMINATION: Alert and oriented x3. Pulse is 107, blood pressure 159/95, respiration 12, temperature 98.2, pulse ox 97% on room air. HEENT: Conjunctivae normal. NECK: No jugular venous distention. CARDIOVASCULAR SYSTEM: S1, S2 muffled. RESPIRATORY SYSTEM: Breath sounds diminished at the bases. No rhonchi. No crackles. ABDOMEN: Soft, non-tender. No mass palpable. LEGS: No edema. No swelling. NERVOUS SYSTEM: No focal deficit. LABS: WBC 5.3, hemoglobin 12.4. Sodium is 136. ASSESSMENT: 1. Nausea, vomiting with possible acute cellulitis with sepsis in an immunocompromised individual. 2. History of recent renal transplant. 3. Troponin 0.05, indeterminate, of undetermined etiology. No evidence of non-ST- segment-elevation myocardial infarction per Cardiology. 4. Increased LDH and CRP. 5. Diffuse skin ulcerations. 6. Diabetes mellitus, type 2. 7. Gastroesophageal reflux disease. 8. History of diabetic retinopathy. 9. History of diabetic peripheral neuropathy. 10.Hypertension. 11.Hyperlipidemia. 12.History of previous diabetic ketoacidosis. 13.History of previous gastroparesis. 14.History of vitrectomy. 15.History of depression. 16.FULL CODE. RECOMMENDATIONS AND DISCUSSION: I recommend to continue current medications, continue with the monitoring, symptomatic treatment. Continue with antibiotics. Otherwise, I would recommend adding metoprolol to the current regimen to control the blood pressure. Otherwise, closely follow with multiple consultants. Gastroenterology consultation has been sought. Guarded prognosis. Further recommendations to follow. MMODL / IJN: [id number] /
[2019-11-09] MEDS: INSULIN DETEMIR (LEVEMIR) 100 UNIT/ML SYR SQ SCH (18:29)
[2019-11-09 21:33] LABS: Glucose,Whole Blood 127 mg/dL (75-99)
[2019-11-09] MEDS: ATORVASTATIN 40 MG TAB PO SCH (21:37)
[2019-11-09] MEDS: CHOLECALCIFEROL 1,000 UNIT TAB PO SCH (21:37)
--- NOTE | 2019-11-10 00:21 | PN ---
PROGRESS NOTE DATE OF SERVICE: 11/09/19. REASON FOR FOLLOWUP: Acute gastroenteritis/gastroparesis. INTERVAL HISTORY: Patient is currently afebrile. The patient is feeling better today. He is breathing comfortably. Denies having any chest pain. No shortness of breath or cough. Overall nausea, vomiting has resolved. No abdominal pain. No diarrhea. No bowel movement. PHYSICAL EXAMINATION: Blood pressure 159/95 with a pulse of 107, temperature 98.2. He is 97% on room air. General description: The patient is a middle-aged male lying in bed in no distress. Respiratory system: Unlabored breathing, clear to auscultation anteriorly. Heart S1, S2. Regular rate and rhythm. ABDOMEN: Soft, no tenderness. LABS: Hemoglobin is 12.4, white count 5.3, BUN of 14, creatinine 0.88. 0.7. Covid-19 testing is negative. DIAGNOSTIC IMPRESSION AND PLAN: Patient admitted to the hospital with diffuse nausea and vomiting, possible gastroparesis versus acute viral gastroenteritis. Patient has seemed to show clinical improvement with symptomatic treatment. So far infection workup is negative. We will monitor the patient closely off antibiotic therapy. Continue supportive care. MMODL / IJN: [id number] /
[2019-11-10] MEDS: ONDANSETRON 4 MG/2 ML VIAL IVP SCH ×4 (00:42→17:44)
[2019-11-10] MEDS: SODIUM CHLORIDE 0.9% 1,000 ML IV SCH ×2 (00:42→13:43)
[2019-11-10] MEDS: METOPROLOL TARTRATE 25 MG TAB PO SCH ×2 (06:17→17:45)
--- NOTE | 2019-11-10 06:51 | CONS ---
CONSULTATION DATE OF CONSULTATION: 11/09/2019 REQUESTING PHYSICIAN: Dr. Hurtado. REASON FOR CONSULTATION: Persistent nausea, vomiting. HISTORY OF PRESENT ILLNESS: The patient is a 34-year-old pleasant white male with history of type 1 diabetes mellitus, hypertension, hyperlipidemia, diabetic gastroparesis, end-stage renal disease, who underwent a kidney transplant in July of this year at [facility]. The patient was doing well but for the last 3 days started having nausea, vomiting, and became extremely weak and fatigued. He came to the emergency room. Subsequently admitted to the hospital for further evaluation. He is presently on Protonix as well and antiemetics. He is feeling much better this morning. In fact, he was started on a clear liquid diet this morning and is he able to keep it down, tolerating well. Abdominal pain has resolved. PAST MEDICAL HISTORY: End-stage renal disease, status post kidney transplant 3 months ago, diabetes mellitus, hypertension, hyperlipidemia, anxiety, depression, gastroesophageal reflux disease. MEDICATIONS: Medications at home include CellCept, Wellbutrin, Envarsus, Bactrim DS, omeprazole, magnesium, Midodrine, lidocaine, NovoLog, Lantus, glucagon, Florinef, vitamin D3, calcium citrate, Lipitor, Ecotrin, ondansetron, and Prilosec. SOCIAL HISTORY: History of smoking. No alcohol use. FAMILY HISTORY: Unremarkable. ALLERGIES: Reglan. REVIEW OF SYSTEMS: CARDIOPULMONARY: Denies any chest pain or shortness of breath. : No dysuria or hematuria. GI: As mentioned above. ENT: Vision unremarkable. CONSTITUTIONAL: No recent weight loss. He lost about 20 pounds since his transplant, but he states that for the last one month he gained 5 pounds. HEMATOLOGY: Unremarkable. PSYCHIATRIC: Unremarkable. ENT: Vision unremarkable. ENDOCRINE: Diabetes mellitus. PHYSICAL EXAMINATION: He appears comfortable. No apparent distress. Vital signs are stable. Blood pressure is 159/95, pulse rate 107, temperature 98.2. HEENT: Examination unremarkable. Conjunctivae are pink. Sclerae anicteric. Oral cavity no lesions. NECK: No JVD or lymph node enlargement. CHEST: Clear to auscultation. HEART: Regular rate and rhythm. ABDOMEN: Soft. Bowel sounds are positive. No organomegaly. EXTREMITIES: No pedal edema. NEUROLOGIC: Alert and oriented x3. No focal deficits. LABS: WBC 5.3, hemoglobin 12.4, platelets normal. Basic metabolic panel, BUN 14, creatinine 0.88. CRP is 10.6. Coronavirus PCR negative. IMPRESSION: 1. Persistent nausea and vomiting for the last 3 days duration in this patient with longstanding history of diabetes mellitus and history of diabetic gastroparesis. Presently on Protonix as well as antiemetics and is doing much better. On clear liquid diet and able to tolerate well. Multiple upper endoscopies in the past, the last one in March of [address] Bacon with Botox injection for diabetic gastroparesis. 2. End-stage renal disease, status post kidney transplant 3 months ago. 3. Longstanding history of diabetes mellitus. 4. History of anxiety and depression. RECOMMENDATIONS: 1. Continue with Protonix 40 mg twice daily. 2. Antiemetics as needed. 3. Aggressive control of blood sugar. 4. Monitor labs closely. 5. Advance diet as tolerated based on his symptoms tomorrow. Thank you for this consultation. MMODL / IJN: [id number] /
[2019-11-10 07:01] LABS: Glucose,Whole Blood 113 mg/dL (75-99)
[2019-11-10] MEDS: INSULIN ASPART (NovoLOG) 100 UNIT/ML VIAL SQ SCH ×4 (08:05→21:48)
[2019-11-10] MEDS: HEPARIN SODIUM,PORCINE 5,000 UNIT/ML 1 ML VIAL SQ SCH ×2 (08:14→21:48)
[2019-11-10] MEDS: PANTOPRAZOLE 40 MG/10 ML VIAL IVP SCH ×2 (08:15→21:47)
[2019-11-10] MEDS: SULFAMETHOX-TMP 400-80MG 1 EACH TAB PO SCH (08:15)
[2019-11-10] MEDS: predniSONE 5 MG TAB PO SCH (08:15)
[2019-11-10] MEDS: buPROPion XL 150 MG TAB.ER.24H PO SCH (08:15)
[2019-11-10] MEDS: TACROLIMUS 6 MG PO SCH (08:16)
[2019-11-10] MEDS: amLODIPine 10 MG TAB PO SCH (08:16)
[2019-11-10 09:15] LABS: HCT 38.8 % (39.0-53.0); HGB 12.1 gm/dL (13.0-17.5); MCH 27.2 pg (25.0-35.0); MCHC 31.1 g/dL (31.0-37.0); MCV 87.6 fL (80.0-100.0); Mean Platelet Volume 8.6; Platelet Count 229 k/uL (150-450); RBC 4.43 m/uL (4.30-5.90); RDW 14.1 % (11.5-15.5); WBC 5.3 k/uL (3.8-10.6)
[2019-11-10 09:27] LABS: African American GFR (CKD) >90 (>60 ml/min/1.73 sqM); Anion Gap 7 mmol/L; Blood Urea Nitrogen 11 mg/dL (9-20); Carbon Dioxide 32 mmol/L (22-30); Chloride 99 mmol/L (98-107); Glucose 120 mg/dL (74-99); Non-African American GFR(CKD) >90 (>60 ml/min/1.73 sqM); Potassium 3.7 mmol/L (3.5-5.1); Sodium 138 mmol/L (137-145)
[2019-11-10 10:30] VITALS: BMI 18.8
[2019-11-10 11:38] LABS: Band Neutrophils % 1 %; Eosinophils # (M) 0.05 k/uL (0-0.7); Metamyelocytes # (M) 0.05 k/uL (0); Metamyelocytes % 1 %; Monocytes # (M) 0.69 k/uL (0-1.0); Myelocytes # (M) 0.05 k/uL (0); Myelocytes % 1 %; Neutrophils % (M) 71 %; Nucleated Red Blood Cells 0 /100 WBC (0-0); Total Cells Counted 200
[2019-11-10 11:39] LABS: Anisocytosis (M) Present; Poikilocytosis (M) Present
[2019-11-10 12:51] LABS: Glucose,Whole Blood 151 mg/dL (75-99)
--- NOTE | 2019-11-10 13:06 | P.PN ---
Subjective Progress Note Date: 11/10/19 Principal diagnosis: Persistent nausea and vomiting The patient is a 34-year-old pleasant white male with a history of type 1 diabetes mellitus and diabetic gastroparesis. He recently underwent a kidney transplant in July of this year for end-stage renal disease at the [facility]. For the past 3-4 days duration he was having nausea and vomiting and became extremely weak and fatigued. Today he has seen and evaluated and states he is feeling much better. He is denying any vomiting, his nausea has improved greatly. He denies any abdominal pain, fever or chills. He is presently on Protonix and antiemetics. He is tolerating a clear liquid diet and states he would like to continue with the clear liquid diet. Objective - Vital Signs Vital signs: Vital Signs Temp 98.1 F 11/10/19 08:13 Pulse 84 11/10/19 09:00 Resp 14 11/10/19 09:00 BP 127/79 11/10/19 08:13 Pulse Ox 99 11/10/19 08:13 Intake & Output 11/09/19 11/10/19 11/10/19 18:59 06:59 18:59 Intake Total 300 Output Total 220 2450 Balance -220 -2450 300 Weight 61.235 kg Intake: Oral 300 Output: Urine 220 2450 Other: Voiding Method Urinal Urinal Urinal # Voids 1 1 - Exam General appearance: The patient is alert, oriented, in no acute distress. HET: Head is normocephalic and atraumatic. Conjunctiva are pink. Sclera an icteric. LNeck: Supple without lymphadenopathy. Trachea midline. Abdomen: Soft, nontender, nondistended with bowel sounds. Extremities: Normal skin color and turgor. No edema Neurological: No focal deficits. Alert and oriented 3. - Labs CBC & Chem 7: 11/10/19 08:42 11/10/19 08:42 Labs: Abnormal Lab Results - Last 24 Hours (Table) 11/09/19 11/09/19 11/10/19 Range/Units 17:06 21:32 06:59 Hgb (13.0-17.5) gm/dL Hct (39.0-53.0) % Lymphocytes # (Manual) (1.0-4.8) k/uL Metamyelocytes # (Man) (0) k/uL Myelocytes # (Manual) (0) k/uL Carbon Dioxide (22-30) mmol/L Glucose (74-99) mg/dL POC Glucose (mg/dL) 209 H 127 H 113 H (75-99) mg/dL 11/10/19 11/10/19 11/10/19 Range/Units 08:42 08:42 12:49 Hgb 12.1 L (13.0-17.5) gm/dL Hct 38.8 L (39.0-53.0) % Lymphocytes # (Manual) 0.80 L (1.0-4.8) k/uL Metamyelocytes # (Man) 0.05 H (0) k/uL Myelocytes # (Manual) 0.05 H (0) k/uL Carbon Dioxide 32 H (22-30) mmol/L Glucose 120 H (74-99) mg/dL POC Glucose (mg/dL) 151 H (75-99) mg/dL Microbiology - Last 24 Hours (Table) 11/08/19 15:12 Urine Culture - Final Urine,Voided 11/08/19 12:15 Blood Culture - Preliminary Blood No Growth after 24 hours Assessment and Plan Assessment: 1. Persistent nausea and vomiting for the last 3 days duration in this patient with long-standing history of diabetes mellitus and history of diabetic gastroparesis. Presently on Protonix as well as anti-emetics and is doing much better. He is on a clear liquid diet and able to tolerate the diet. Patient does not want advance diet at this time. Multiple upper endoscopies in the past, the last one in March [address] Saxena with Botox injection for diabetic gastroparesis 2. End-stage renal disease, status post kidney transplant 3 months ago. 3. Long-standing history of diabetes mellitus. 4. History of anxiety and depression. Plan: 1. Continue with Protonix 40 mg twice daily 2. Antiemetics as needed 3. Aggressive control blood sugar 4. Monitor labs closely 5. Advance diet as tolerated based on patient's symptoms. 6. Follow-up with Dr. Arce regarding repeat EGD with Botox injection per patient request The impression and plan of care has been dictated as directed. Dr. Roxi Arce I performed a history and examination of this patient, discussed the same with the dictator. I agree with the dictator's note ,documented as a scribe. Any additional findings or plans will be noted.
[2019-11-10 14:32] VITALS: RESP 16
--- NOTE | 2019-11-10 15:39 | PN ---
PROGRESS NOTE Patient is seen for followup for post-transplant care. Patient is status post - donor renal transplant about 6 months ago. He is currently doing well. He was admitted to the hospital with severe nausea and vomiting as he had run out of his proton pump inhibitors. The nausea and vomiting have improved now. Patient was able to tolerate oral intake. No abdominal pain. Renal function has improved significantly. Serum creatinine is 0.9 mg/dL from 1.11 on initial admission. PHYSICAL EXAMINATION: On examination today, blood pressure 127/79, heart rate 84 per minute, patient is afebrile Examination of the heart S1, S2. Examination of lungs decreased breath sounds at bases. Abdomen is soft, non-tender. Examination of the lower extremities shows no evidence of edema. ORTHODONTIC LAB TECHNICIAN exam grossly intact. LABS: Show sodium of 138, potassium 3.7, BUN 11, serum creatinine 0.9 mg/dL calcium 9.0. ASSESSMENT: 1. Acute kidney injury, prerenal currently improved, patient is maintained on IV fluids. 2. Status post -donor renal transplant about 6 months ago at [facility]. Continue current immunosuppressive medications. Renal function is at baseline. Urine has shown 1+ protein. We will repeat a urinalysis on his followup visit for transplant. 3. Hypertension with history of severe orthostatic hypotension maintained on midodrine. However, blood pressure had been running high, therefore, I held off on the midodrine for now. PLAN: Encourage increased oral intake, may continue IV fluids. In the meantime, continue current immunosuppressive medications. MMODL / IJN: [id number] /
--- NOTE | 2019-11-10 16:23 | PN ---
PROGRESS NOTE DATE OF SERVICE: 11/10/2019 REASON FOR FOLLOWUP: Acute gastroenteritis, possibly viral. INTERVAL HISTORY: The patient is currently afebrile. The patient is feeling better, breathing comfortably. Has been tolerating his clear liquid diet. No further nausea, vomiting or abdominal pain. Did have one episode of loose stool. PHYSICAL EXAMINATION: Blood pressure 134/84 with a pulse of 92, temperature 98. He is 94% on room air. General description is a middle-aged male lying in bed in no distress. RESPIRATORY SYSTEM: Unlabored breathing. Clear to auscultation anteriorly. HEART: S1, S2. Regular rate and rhythm. ABDOMEN: Soft. No tenderness. LABS: Hemoglobin is 12.1, white count 5.3, creatinine 0.99. Aguilar PCR was negative. Urine is negative. DIAGNOSTIC IMPRESSION AND PLAN: Patient admitted to hospital with nausea and vomiting; concern for possible gastroparesis versus gastroenteritis, possibly viral. Stool culture has been requested. Continue with symptomatic treatment. No need for any systemic antibiotic therapy. Can be discontinued. Continue with supportive care. MMODL / IJN: [id number] /
[2019-11-10 17:24] LABS: Glucose,Whole Blood 241 mg/dL (75-99)
[2019-11-10] MEDS: INSULIN DETEMIR (LEVEMIR) 100 UNIT/ML SYR SQ SCH (17:45)
[2019-11-10 21:39] LABS: Glucose,Whole Blood 164 mg/dL (75-99)
[2019-11-10] MEDS: ATORVASTATIN 40 MG TAB PO SCH (21:47)
[2019-11-10] MEDS: CHOLECALCIFEROL 1,000 UNIT TAB PO SCH (21:47)
--- NOTE | 2019-11-10 22:54 | PN ---
PROGRESS NOTE DATE OF SERVICE: 11/10/2019 This 34-year-old gentleman admitted with nausea and vomiting, possibly acute gastritis, gastroparesis, is being closely monitored at this time. The patient is also on empiric antibiotics because of immunosuppression. Cultures are negative so far. Multiple consultants are following the patient closely. The patient is able to keep some clear liquids at this time. No chest pain. No palpitations. No fever. PHYSICAL EXAMINATION: Alert and oriented x3. Pulse 92, blood pressure 135/84, respirations 16, temperature 98 degrees, pulse ox 94% on room air. HEENT: Conjunctivae normal. NECK: No jugular venous distention. CARDIOVASCULAR SYSTEM: S1, S2 muffled. RESPIRATORY SYSTEM: Breath sounds diminished at the bases. No rhonchi. No crackles. ABDOMEN: Soft. Minimal diffuse discomfort. No guarding. No rigidity. No mass palpable. LEGS: No edema. No swelling. NERVOUS SYSTEM: No focal deficit. LABS: WBC 5.3, hemoglobin 12.1. Sodium 138, potassium 3.7. ASSESSMENT: 1. Nausea and vomiting with possible acute cellulitis of the leg with sepsis in an immunocompromised individual. 2. Possible acute gastritis. 3. History of recent renal transplant. 4. Troponin 0.05, indeterminate, of undetermined etiology. No evidence of non-ST- segment-elevation myocardial infarction per Cardiology. 5. Increased LDH and CRP. 6. Diffuse skin ulcerations. 7. Diabetes mellitus, type 2. 8. Gastroesophageal reflux disease. 9. History of diabetic retinopathy. 10.History of diabetic peripheral neuropathy. 11.Hypertension. 12.Hyperlipidemia. 13.History of previous diabetic ketoacidosis. 14.History of previous gastroparesis. 15.History of vitrectomy. 16.History of depression. 17.NO CODE. RECOMMENDATIONS AND DISCUSSION: I recommend to continue current medications, continue with the monitoring, symptomatic treatment. Closely follow with Gastroenterology. Continue the antibiotics. Advance diet per Gastroenterology. Guarded prognosis. Further recommendations to follow. MMODL / IJN: [id number] /
[2019-11-11] MEDS ORDERED: NALOXONE 0.4 MG/ML 1 ML VIAL IV PRN ×2 (01:25→01:27)
[2019-11-11] MEDS: ONDANSETRON 4 MG/2 ML VIAL IVP SCH ×3 (01:32→12:44)
[2019-11-11] MEDS: SODIUM CHLORIDE 0.9% 1,000 ML IV SCH (03:45)
[2019-11-11 04:47] LABS: Glucose,Whole Blood 130 mg/dL (75-99)
[2019-11-11 06:56] LABS: Glucose,Whole Blood 164 mg/dL (75-99)
[2019-11-11] MEDS: METOPROLOL TARTRATE 25 MG TAB PO SCH (06:59)
[2019-11-11] MEDS: INSULIN ASPART (NovoLOG) 100 UNIT/ML VIAL SQ SCH ×2 (07:00→12:44)
[2019-11-11 07:41] LABS: African American GFR (CKD) >90 (>60 ml/min/1.73 sqM); Anion Gap 4 mmol/L; Blood Urea Nitrogen 7 mg/dL (9-20); Calcium 8.5 mg/dL (8.4-10.2); Carbon Dioxide 31 mmol/L (22-30); Chloride 103 mmol/L (98-107); Glucose 156 mg/dL (74-99); Non-African American GFR(CKD) >90 (>60 ml/min/1.73 sqM); Potassium 3.3 mmol/L (3.5-5.1); Sodium 138 mmol/L (137-145)
[2019-11-11] MEDS: HEPARIN SODIUM,PORCINE 5,000 UNIT/ML 1 ML VIAL SQ SCH (07:41)
[2019-11-11] MEDS: buPROPion XL 150 MG TAB.ER.24H PO SCH (07:41)
[2019-11-11] MEDS: PANTOPRAZOLE 40 MG/10 ML VIAL IVP SCH (07:41)
[2019-11-11] MEDS: amLODIPine 10 MG TAB PO SCH (07:41)
[2019-11-11] MEDS: SULFAMETHOX-TMP 400-80MG 1 EACH TAB PO SCH (07:42)
[2019-11-11] MEDS: TACROLIMUS 6 MG PO SCH (07:42)
[2019-11-11] MEDS: predniSONE 5 MG TAB PO SCH (07:42)
[2019-11-11 08:18] LABS: Basophils % (A) 1 %; Eosinophils # (A) 0.1 k/uL (0-0.7); Eosinophils % (A) 4 %; HCT 34.8 % (39.0-53.0); HGB 11.4 gm/dL (13.0-17.5); Lymphocytes # (A) 0.5 k/uL (1.0-4.8); Lymphocytes % (A) 15 %; MCH 28.4 pg (25.0-35.0); MCHC 32.6 g/dL (31.0-37.0); Mean Platelet Volume 8.7; Monocytes # (A) 0.3 k/uL (0-1.0); Monocytes % (A) 10 %; Neutrophils # (A) 2.2 k/uL (1.3-7.7); Neutrophils % (A) 67 %; Platelet Count 162 k/uL (150-450); Poikilocytosis Slight; RBC 4.01 m/uL (4.30-5.90); RDW 14.4 % (11.5-15.5); WBC 3.2 k/uL (3.8-10.6)
[2019-11-11 09:01] VITALS: BP 117/77; PULSE 93; TEMP 98.3
[2019-11-11 12:44] LABS: Glucose,Whole Blood 212 mg/dL (75-99)
--- NOTE | 2019-11-11 15:32 | P.PN ---
Subjective Progress Note Date: 11/11/19 Principal diagnosis: Persistent nausea and vomiting The patient is a 34-year-old pleasant white male with a history of type 1 diabetes mellitus and diabetic gastroparesis. He recently underwent a kidney transplant in July of this year for end-stage renal disease at the [facility]. For the past 3-4 days duration he was having nausea and vomiting and became extremely weak and fatigued. Today he has seen and evaluated and states he is feeling much better. He is denying any vomiting, his nausea has improved greatly. He denies any abdominal pain, fever or chills. He is presently on Protonix and antiemetics. Objective - Vital Signs Vital signs: Vital Signs Temp 98.3 F 11/11/19 07:40 Pulse 93 11/11/19 09:00 Resp 16 11/11/19 09:00 BP 117/77 11/11/19 07:40 Pulse Ox 99 11/11/19 07:40 Intake & Output 11/10/19 11/11/19 11/11/19 18:59 06:59 18:59 Intake Total 500 1300 Output Total 700 1300 200 Balance -200 -1300 1100 Weight 61.235 kg Intake: Oral 500 1300 Output: Urine 700 1300 200 Other: Voiding Method Urinal Urinal Urinal # Voids 3 - Exam General appearance: The patient is alert, oriented, in no acute distress. HET: Head is normocephalic and atraumatic. Conjunctiva are pink. Sclera anicteric. LNeck: Supple without lymphadenopathy. Trachea midline. Abdomen: Soft, nontender, nondistended with bowel sounds. Extremities: Normal skin color and turgor. No edema Neurological: No focal deficits. Alert and oriented 3. - Labs CBC & Chem 7: 11/11/19 06:57 11/11/19 06:57 Labs: Abnormal Lab Results - Last 24 Hours (Table) 11/10/19 11/10/19 11/11/19 Range/Units 17:23 21:38 04:45 WBC (3.8-10.6) k/uL RBC (4.30-5.90) m/uL Hgb (13.0-17.5) gm/dL Hct (39.0-53.0) % Lymphocytes # (1.0-4.8) k/uL Potassium (3.5-5.1) mmol/L Carbon Dioxide (22-30) mmol/L BUN (9-20) mg/dL Glucose (74-99) mg/dL POC Glucose (mg/dL) 241 H 164 H 130 H (75-99) mg/dL 11/11/19 11/11/19 11/11/19 Range/Units 06:54 06:57 06:57 WBC 3.2 L (3.8-10.6) k/uL RBC 4.01 L (4.30-5.90) m/uL Hgb 11.4 L (13.0-17.5) gm/dL Hct 34.8 L (39.0-53.0) % Lymphocytes # 0.5 L (1.0-4.8) k/uL Potassium 3.3 L (3.5-5.1) mmol/L Carbon Dioxide 31 H (22-30) mmol/L BUN 7 L (9-20) mg/dL Glucose 156 H (74-99) mg/dL POC Glucose (mg/dL) 164 H (75-99) mg/dL 11/11/19 Range/Units 12:42 WBC (3.8-10.6) k/uL RBC (4.30-5.90) m/uL Hgb (13.0-17.5) gm/dL Hct (39.0-53.0) % Lymphocytes # (1.0-4.8) k/uL Potassium (3.5-5.1) mmol/L Carbon Dioxide (22-30) mmol/L BUN (9-20) mg/dL Glucose (74-99) mg/dL POC Glucose (mg/dL) 212 H (75-99) mg/dL Microbiology - Last 24 Hours (Table) 11/08/19 12:15 Blood Culture - Preliminary Blood No Growth after 72 hours 11/08/19 13:28 Gram Stain - Final Foot - Right Wound Culture - Final 11/10/19 08:45 Stool Culture - Preliminary Stool Assessment and Plan Assessment: 1. Persistent nausea and vomiting for the last 3 days duration in this patient with long-standing history of diabetes mellitus and history of diabetic gastroparesis. Presently on Protonix as well as anti-emetics and is doing much better. He is on a clear liquid diet and able to tolerate the diet. Patient does not want advance diet at this time. Multiple upper endoscopies in the past, the last one in March [address] Saxena with Botox injection for diabetic gastroparesis 2. End-stage renal disease, status post kidney transplant 3 months ago. 3. Long-standing history of diabetes mellitus. 4. History of anxiety and depression. Plan: 1. Continue with Protonix 40 mg twice daily 2. Antiemetics as needed 3. Aggressive control blood sugar 4. Monitor labs closely 5. Advance diet as tolerated based on patient's symptoms. 6. Follow-up with Dr. Arce regarding possible repeat EGD with Botox injection if symptoms persist The impression and plan of care has been dictated as directed. Dr. Roxi Arce I performed a history and examination of this patient, discussed the same with the dictator. I agree with the dictator's note ,documented as a scribe. Any additional findings or plans will be noted.
--- NOTE | 2019-11-11 17:57 | PN ---
PROGRESS NOTE DATE OF SERVICE: 11/11/2019 REASON FOR FOLLOWUP: Acute gastroenteritis. INTERVAL HISTORY: Patient is currently afebrile. He was seen on rounds early this afternoon. The patient denies having any chest pain or shortness of breath. No cough. No further nausea, no vomiting, no abdominal pain or any diarrhea. Overall feeling better. PHYSICAL EXAMINATION: Blood pressure is 117/77 with a pulse of 93, temperature 98.3. He is 99% on room air. General description is a middle-aged male lying in bed in no distress. Respiratory system: Unlabored breathing, clear to auscultation anteriorly. Heart S1, S2. Regular rate and rhythm. Abdomen soft, no tenderness. LABS: Hemoglobin 11.4, white count 3.2. Creatinine 0.97. Stool culture negative so far. Blood culture negative. Right foot wound culture negative. DIAGNOSTIC IMPRESSION AND PLAN: 1. Patient admitted to the hospital with acute nausea, vomiting, and concern for possible gastroparesis versus diffuse gastroenteritis possible viral or infectious. Clinically improved with symptomatic treatment. No need for any systemic antibiotic on discharge. 2. The patient taking physician, should continue after he follows with them. This was discussed with the nurse taking care of the patient. MMODL / IJN: [id number] /
--- NOTE | 2019-11-12 08:14 | DS ---
DISCHARGE SUMMARY DATE OF SERVICE: 11/11/2019 FINAL DIAGNOSES: 1. Nausea, vomiting with possible acute cellulitis of the right leg with sepsis in an immunocompromised individual. 2. Possible acute gastritis improved. 3. History of recent renal transplant. 4. Troponin 0.05, indeterminate, of undetermined etiology. No evidence of acute non-ST- segment-elevation myocardial infarction per Cardiology. 5. Increased LDH and CRP. 6. COVID-19 ruled out. 7. Diffuse skin ulcerations. 8. Diabetes mellitus type 2. 9. Gastroesophageal reflux disease. 10.History of diabetic retinopathy. 11.History of diabetic peripheral neuropathy. 12.Hypertension. 13.Hyperlipidemia. 14.History of previous diabetic ketoacidosis. 15.Previous gastroparesis. 16.History of hysterectomy. 17.History of depression. 18.NO CODE, NO CPR, NO VENT. DISCHARGE DISPOSITION: The patient was discharged in a stable condition with a guarded prognosis. HISTORY OF PRESENT ILLNESS: This 34-year-old gentleman presented with multiple medical problems and was admitted with nausea, vomiting and possible acute cellulitis with sepsis. Patient treated with broad-spectrum IV antibiotics. Patient improved significantly. Patient had symptomatic treatment. Gastroenterology saw the patient and recommended outpatient followup. Cultures are negative at this time. Infectious Disease also saw the patient and recommended to continue the Bactrim as at home. Otherwise, follow up labs with the primary physician. PHYSICAL EXAMINATION: On exam, vitals are stable. Cardiovascular S1 and S2. Abdomen is soft. Nervous system with no focal deficits. DISCHARGE INSTRUCTIONS: Diet is cardiac. Activity is limited until followup. Follow up with Dr. Hurtado in 2-3 days. Follow up with Dr. Arce and Cardiology as recommended. DISCHARGE MEDICATIONS: 1. Bactrim DS as before. 2. Calcium carbonate 250 mg b.i.d. 3. CellCept 2000 mg p.o. b.i.d. 4. Claritin 10 mg daily. 5. Ecotrin 81 mg p.o. daily. 6. Lidocaine cream as before. 7. Tacrolimus 6 mg p.o. daily. 8. Florinef 0.1 daily. 9. Glucagon. 10.Lipitor 40 mg q.h.s. 11.Midodrine 10 mg p.o. t.i.d. 12.Novolin 40 units subcu daily. 13.NovoLog scale. 14.Omeprazole 20 mg daily. 15.Prednisone 5 mg p.o. daily. 16.Slow-Mag 128 mg p.o. daily. 17.Lantus 26 units subcu daily. 18.Vitamin D3 2000 daily. 19.Wellbutrin XL 150 mg p.o. daily. 20.Compazine 10 mg q.6 p.r.n. 21.Lopressor 25 mg p.o. b.i.d. 22.Norvasc 10 mg p.o. daily. 23.Prilosec 20 mg daily. 24.Zofran 4 mg q.8 p.r.n. Once again the patient will be discharged in a stable condition with a guarded prognosis. MMODL / IJN: [id number] /
--- NOTE | 2019-11-12 14:11 | CDI ---
Documentation Clarification Form Date: 11/12/2019 01:01:00 PM From: Haven Juarez Phone: If you have a question about this query, please contact Ольга Marin [employer] Bulk Driver at [phone] between 8am and 5pm. Admit Date: 11/08/2019 02:37:00 PM Patient Name: Matt Hernandez Visit Number: [id number] Discharge Date: 11/11/2019 01:58:00 PM ATTENTION: The Clinical Documentation Specialists (CDI) and [facility] Coding Staff appreciate your assistance in clarifying documentation. Please respond to the clarification below the line at the bottom and electronically sign. The CDI & [facility] Coding staff will review the response and follow-up if needed. Please note: Queries are made part of the Legal Health Record. If you have any questions, please contact the author of this message via ITS. Dr. Anil Haji Your patient has the documented diagnosis of right leg cellulitis and Type I Diabetes in your H and P and DCS. Please clarify if patient's cellulitis is linked to Type I diabetes. A relationship between diagnoses cannot be assumed unless documented as such by the attending physician. In order to capture the severity of condition; please document the relationship, if any, between these diagnoses. History/Risk Factors: DM Type I, ESRD, kidney transplant, DM with CKD, DM neuropathy, DM gastroparesis, DM retinopathy, immunocompromised patient Treatment: IV broad spectrum antibiotics. Continue Bactrim at home Please clarify, in your clinical opinion is this patients right leg cellulitis linked to Type I diabetes? Cellulitis right leg linked to type I diabetes Cellulitis right leg not linked to Type I diabetes Other explanation of clinical findings (please specify) Unable to determine (no explanation for clinical findings) Cellulitis right leg not linked to Type I diabetes MTDD
== END 2019-11-11 13:58 | disposition home or self-care (01) | DRG 871 ==
LOC: EC 14:54 → 3NCARDOBS 18:50 → OBSVTOIN 11-08 14:37
PROVIDERS: ADMIT Hospitalist; ATTEND Hospitalist
DX: A41.9 Sepsis, unspecified organism (principal); N18.6 End stage renal disease; I12.0 Hypertensive chronic kidney disease with stage 5 chronic kidney disease or end stage renal disease; N17.9 Acute kidney failure, unspecified; Z94.0 Kidney transplant status; L97.909 Non-pressure chronic ulcer of unspecified part of unspecified lower leg with unspecified severity; L03.115 Cellulitis of right lower limb; E10.22 Type 1 diabetes mellitus with diabetic chronic kidney disease; E10.319 Type 1 diabetes mellitus with unspecified diabetic retinopathy without macular edema; E10.43 Type 1 diabetes mellitus with diabetic autonomic (poly)neuropathy; E78.5 Hyperlipidemia, unspecified; E86.0 Dehydration; H54.8 Legal blindness, as defined in USA; R79.89 Other specified abnormal findings of blood chemistry; K21.9 Gastro-esophageal reflux disease without esophagitis; K29.70 Gastritis, unspecified, without bleeding; K31.84 Gastroparesis; Z79.4 Long term (current) use of insulin; K52.9 Noninfective gastroenteritis and colitis, unspecified; Z66 Do not resuscitate; Z20.828 Contact with and (suspected) exposure to other viral communicable diseases; S80.811A Abrasion, right lower leg, initial encounter; W19.XXXA Unspecified fall, initial encounter; Z79.52 Long term (current) use of systemic steroids; Z79.82 Long term (current) use of aspirin; Z79.899 Other long term (current) drug therapy; Z87.891 Personal history of nicotine dependence; K44.9 Diaphragmatic hernia without obstruction or gangrene; Z88.8 Allergy status to other drugs, medicaments and biological substances; F40.240 Claustrophobia
CPT/HCPCS: 36415; 71045; 80048; 80053; 81001; 82009; 83615; 84145; 84484; 85025; 85379; 85610; 85652; 86140; 87040; 87045; 87046; 87070; 87086; 87205; 93306; 96361; 96372; 96374; 96375; 99284

== ENCOUNTER → 2019-11-25 | Outpatient (CLI) | payer MEDICARE, BC ==
[2019-11-25 11:17] LABS: Basophils # (A) 0.1 k/uL (0-0.2); Basophils % (A) 1 %; Eosinophils # (A) 0.1 k/uL (0-0.7); Eosinophils % (A) 3 %; HCT 46.7 % (39.0-53.0); HGB 14.7 gm/dL (13.0-17.5); Lymphocytes # (A) 0.8 k/uL (1.0-4.8); Lymphocytes % (A) 19 %; MCH 28.4 pg (25.0-35.0); MCHC 31.5 g/dL (31.0-37.0); MCV 90.4 fL (80.0-100.0); Mean Platelet Volume 9.2; Monocytes # (A) 0.4 k/uL (0-1.0); Monocytes % (A) 10 %; Neutrophils # (A) 2.6 k/uL (1.3-7.7); Neutrophils % (A) 65 %; Platelet Count 228 k/uL (150-450); RBC 5.17 m/uL (4.30-5.90); RDW 14.2 % (11.5-15.5)
[2019-11-25 16:07] LABS: African American GFR (CKD) 41.4 (60.0-200.0); Albumin 4.2 g/dL (3.80-4.90); Anion Gap 15.8 mmol/L (4.00-12.00); BUN/Creat Ratio 8.7 Ratio (12.00-20.00); Calcium 10.5 mg/dL (8.7-10.3); Carbon Dioxide 24.2 mmol/L (21.6-31.8); Magnesium 1.6 mg/dL (1.5-2.4); Non-African American GFR(CKD) 35.7 (60.0-200.0); Phosphorus 3.8 mg/dL (2.4-5.1)
[2019-11-25 16:49] LABS: Appearance,Urine Cloudy (Clear); Bilirubin,Urine 1+ (Negative); Blood,Urine Negative (Negative); Calcium Oxalate Crystals,Urine Few /hpf; Color,Urine Yellow; Glucose,Urine (UA) 1+ (Negative); Hyaline Casts,Urine 15 /lpf (0-2); Leukocyte Esterase,Urine Negative (Negative); Mucus,Urine Rare /hpf; Nitrite,Urine Negative (Negative); Protein,Urine Trace (Negative); RBC,Urine 1 /hpf (0-5); Specific Gravity,Urine 1.019 (1.001-1.035); Squamous Epithelial Cell,Urine 1 /hpf (0-4); Triple Phosphate Crystal,Urine Occasional /hpf; WBC,Urine 3 /hpf (0-5)
[2019-11-25 17:00] LABS: Creatinine,Urine Random 168.8 mg/dL; Protein/Creatinine Ratio,Urine 0.166
[2019-11-25 17:16] LABS: Ketones,Urine 2+ (Negative)
[2019-11-26 07:39] LABS: Urine Creatinine 154.9 mg/dL
[2019-11-26 14:16] LABS: BK Virus DNA PCR, Qualitative Not detected (Not detected); BKV DNA (PCR), Quant <125 Copies/mL (<125); LOG BKV Copies/mL <2.10 (<2.10)
== END | disposition home or self-care (01) ==
LOC: LABWHC1 08:46
PROVIDERS: ATTEND Internal Medicine Nephrology
DX: Z48.22 Encounter for aftercare following kidney transplant (principal); Z94.0 Kidney transplant status
CPT/HCPCS: 36415; 80069; 81001; 82043; 82570; 83735; 84156; 85025

== ENCOUNTER 2019-11-29 05:11 | Emergency (ER) | payer MEDICARE, BC ==
[2019-11-29 07:31] LABS: ALT 11 U/L (4-49); AST 22 U/L (17-59); African American GFR (CKD) 26 (>60 ml/min/1.73 sqM); Albumin 4.7 g/dL (3.5-5.0); Alkaline Phosphatase 95 U/L (38-126); Anion Gap 26 mmol/L; Blood Urea Nitrogen 31 mg/dL (9-20); Calcium 10.5 mg/dL (8.4-10.2); Carbon Dioxide 13 mmol/L (22-30); Chloride 92 mmol/L (98-107); Glucose 340 mg/dL (74-99); Magnesium 1.7 mg/dL (1.6-2.3); Non-African American GFR(CKD) 22 (>60 ml/min/1.73 sqM); Potassium 5.4 mmol/L (3.5-5.1); Sodium 131 mmol/L (137-145); Total Bilirubin 0.7 mg/dL (0.2-1.3); Total Protein 6.8 g/dL (6.3-8.2)
[2019-11-29 07:33] LABS: HCT 46.5 % (39.0-53.0); MCH 28.7 pg (25.0-35.0); MCHC 32.3 g/dL (31.0-37.0); MCV 88.6 fL (80.0-100.0); Mean Platelet Volume 9.3; Platelet Count 168 k/uL (150-450); Poikilocytosis Slight; RBC 5.24 m/uL (4.30-5.90); WBC 4.6 k/uL (3.8-10.6)
[2019-11-29 07:39] LABS: Band Neutrophils % 7 %; Basophils # (M) 0.05 k/uL (0-0.2); Eosinophils # (M) 0.05 k/uL (0-0.7); Large Platelets Present; Lymphocytes # (M) 0.51 k/uL (1.0-4.8); Monocytes # (M) 0.28 k/uL (0-1.0); Neutrophils % (M) 74 %; Nucleated Red Blood Cells 0 /100 WBC (0-0); Total Cells Counted 100
[2019-11-29 08:00] VITALS: PULSE 106
[2019-11-29] MEDS ORDERED: INSULIN REGULAR BOLUS (FROM DRIP BAG) IV ONE (08:08)
[2019-11-29] MEDS ORDERED: Potassium Replacement Protocol 1 EACH MISC MISCELLANE PRN (08:08)
[2019-11-29] MEDS ORDERED: Magnesium Replacement Protocol 1 EACH MISC MISCELLANE PRN (08:08)
[2019-11-29] MEDS ORDERED: SODIUM CHLORIDE 0.9% 1,000 ML IV SCH (08:15)
[2019-11-29] MEDS ORDERED: D5-0.45% NACL WITH KCL 20MEQ/L 1,000 ML IV SCH (08:15)
[2019-11-29] MEDS ORDERED: INSULIN REGULAR 100 UNIT in SODIUM CHLORIDE 0.9% 100 ML IV SCH (08:15)
[2019-11-29 08:22] LABS: VBG PH 7.2 (7.31-7.41)
[2019-11-29 09:30] LABS: Glucose,Whole Blood 260 mg/dL (75-99)
[2019-11-29 09:51] VITALS: BP 123/82; RESP 16
[2019-11-30 11:06] LABS: Glucose,Whole Blood 326 mg/dL (75-99)
[2019-11-30 11:08] LABS: Glucose,Whole Blood 311 mg/dL (75-99)
== END 2019-11-29 10:19 ==
LOC: EC 05:11
DX: E10.10 Type 1 diabetes mellitus with ketoacidosis without coma (principal); T86.19 Other complication of kidney transplant; E10.43 Type 1 diabetes mellitus with diabetic autonomic (poly)neuropathy; K31.84 Gastroparesis; Z87.19 Personal history of other diseases of the digestive system
CPT/HCPCS: 36415; 80053; 80180; 82009; 82803; 83605; 83690; 83735; 85025; 96361; 96374; 96375; 99285

== ENCOUNTER → 2019-12-20 | Outpatient (CLI) | payer MEDICARE, BC ==
--- NOTE | 2019-12-20 10:57 | US ---
EXAMINATION TYPE: US renal transplant w dop DATE OF EXAM: 12/20/2019 COMPARISON: 12/19/2017 CLINICAL HISTORY: N13.39 Hydronephrosis. Recent renal transplant 2020. Abnormal labs. EXAM PERFORMED: Grayscale on [place] kidneys and Doppler duplex and Grayscale imaging of the transplan robi kidney. EXAM MEASUREMENTS: [place] Right Kidney: 7.4 x 4.0 x 3.4 cm [place] Left Kidney: 7.6 x 3.5 x 4.2 cm Transplant Kidney: 12.1 x 6.0 x 5.1 cm Location of transplanted kidney: LLQ ANATOMY: [place] Right Kidney: Appears small in size [place] Left Kidney: Appears small in size Transplant Kidney: Hydronephrosis visualized Bladder: distended, anechoic Bilateral Jets not seen IMPRESSION: The transplanted kidney demonstrates [id number] hydronephrosis. No evidence for ureteral jets.
== END | disposition home or self-care (01) ==
LOC: RADUSWWP 08:22
PROVIDERS: ATTEND Internal Medicine Nephrology
DX: N13.30 Unspecified hydronephrosis (principal)
CPT/HCPCS: 76776

== ENCOUNTER → 2020-02-14 | Outpatient (CLI) | payer MEDICARE, BC ==
[2020-02-14 08:59] LABS: Appearance,Urine Clear (Clear); Bilirubin,Urine Negative (Negative); Blood,Urine Negative (Negative); Color,Urine Light Yellow; Glucose,Urine (UA) 4+ (Negative); Ketones,Urine Negative (Negative); Leukocyte Esterase,Urine Negative (Negative); Nitrite,Urine Negative (Negative); PH, Urine 6.5 (5.0-8.0); Protein,Urine Negative (Negative); Specific Gravity,Urine 1.018 (1.001-1.035); Urobilinogen,Urine <2.0 mg/dL (<2.0)
[2020-02-14 09:00] LABS: Basophils % (A) 1 %; Eosinophils # (A) 0.1 k/uL (0-0.7); Eosinophils % (A) 3 %; HCT 42.2 % (39.0-53.0); HGB 13.7 gm/dL (13.0-17.5); Lymphocytes # (A) 0.8 k/uL (1.0-4.8); Lymphocytes % (A) 20 %; MCH 28.4 pg (25.0-35.0); MCHC 32.6 g/dL (31.0-37.0); MCV 87.2 fL (80.0-100.0); Monocytes # (A) 0.4 k/uL (0-1.0); Monocytes % (A) 11 %; Neutrophils # (A) 2.4 k/uL (1.3-7.7); Neutrophils % (A) 64 %; Platelet Count 172 k/uL (150-450); RBC 4.84 m/uL (4.30-5.90); RDW 13.6 % (11.5-15.5); WBC 3.8 k/uL (3.8-10.6)
[2020-02-14 15:28] LABS: African American GFR (CKD) 82.5 (60.0-200.0); Albumin 4.2 g/dL (3.80-4.90); Albumin/Globulin Ratio 2.21 (1.60-3.17); BUN/Creat Ratio 23.08 Ratio (12.00-20.00); Bilirubin, Conjugated 0.2 mg/dL (0.20-0.40); Bilirubin,Unconjugated 0.3 mg/dL; Calcium 9.3 mg/dL (8.7-10.3); Chol/HDL Ratio 2.61; Globulin 1.9 g/dL (1.6-3.3); LDL Cholesterol,Calculated 58.2 mg/dL (0.0-131.0); Magnesium 1.5 mg/dL (1.5-2.4); Non-African American GFR(CKD) 71.2 (60.0-200.0); Potassium 4.3 mmol/L (3.5-5.5); Total Bilirubin 0.5 mg/dL (0.3-1.2); Total Protein 6.1 g/dL (6.2-8.2); VLDL Calculation 23.8 mg/dL (5.00-40.00)
[2020-02-14 17:25] LABS: Hemoglobin A1C 7.6 % (4.0-6.0)
[2020-02-14 17:52] LABS: Urine Creatinine 60.9 mg/dL
[2020-02-14 18:04] LABS: Creatinine,Urine Random 61.4 mg/dL
[2020-02-14 18:20] LABS: Total Protein,Urine Random 9.2 mg/dL (0.0-13.5)
== END | disposition home or self-care (01) ==
LOC: LABWHC1 08:19
PROVIDERS: ATTEND Internal Medicine
DX: E10.65 Type 1 diabetes mellitus with hyperglycemia (principal); Z94.0 Kidney transplant status
CPT/HCPCS: 36415; 80048; 80061; 80076; 81003; 82043; 82570; 83036; 83735; 84156; 85025

== ENCOUNTER 2020-08-16 15:45 | Emergency (ER) | payer MEDICARE ==
[2020-08-16 15:50] VITALS: TEMP 97.8
[2020-08-16] MEDS ORDERED: ONDANSETRON 4 MG/2 ML VIAL IVP STA (15:52)
[2020-08-16] MEDS ORDERED: SODIUM CHLORIDE 0.9% 1,000 ML IV STA (15:52)
[2020-08-16 16:05] LABS: Glucose,Whole Blood 309 mg/dL (75-99)
[2020-08-16 16:34] LABS: Basophils % (A) 0 %; Eosinophils # (A) 0.2 k/uL (0-0.7); Eosinophils % (A) 2 %; HCT 46.6 % (39.0-53.0); Lymphocytes # (A) 0.5 k/uL (1.0-4.8); Lymphocytes % (A) 5 %; MCH 29.2 pg (25.0-35.0); MCHC 34.3 g/dL (31.0-37.0); MCV 85.1 fL (80.0-100.0); Mean Platelet Volume 9.5; Monocytes # (A) 0.4 k/uL (0-1.0); Monocytes % (A) 4 %; Neutrophils # (A) 9.4 k/uL (1.3-7.7); Neutrophils % (A) 89 %; Platelet Count 155 k/uL (150-450); RBC 5.47 m/uL (4.30-5.90); RDW 13.5 % (11.5-15.5); VBG PH 7.35 (7.31-7.41); WBC 10.6 k/uL (3.8-10.6)
[2020-08-16 16:46] LABS: ALT 49 U/L (4-49); AST 36 U/L (17-59); African American GFR (CKD) 82 (>60 ml/min/1.73 sqM); Albumin 4.9 g/dL (3.5-5.0); Alkaline Phosphatase 116 U/L (38-126); Amylase 44 U/L (30-110); Anion Gap 19 mmol/L; Blood Urea Nitrogen 29 mg/dL (9-20); Calcium 10.1 mg/dL (8.4-10.2); Carbon Dioxide 25 mmol/L (22-30); Chloride 93 mmol/L (98-107); Glucose 301 mg/dL (74-99); Lipase 36 U/L (23-300); Non-African American GFR(CKD) 71 (>60 ml/min/1.73 sqM); Potassium 4.5 mmol/L (3.5-5.1); Sodium 137 mmol/L (137-145); Total Bilirubin 1.4 mg/dL (0.2-1.3); Total Protein 7.3 g/dL (6.3-8.2)
--- NOTE | 2020-08-16 16:59 | XR ---
EXAMINATION TYPE: XR KUB DATE OF EXAM: 08/16/2020 COMPARISON: 03/18/2018 HISTORY: Abdominal pain TECHNIQUE: 2 views upright FINDINGS: There is no sign of intestinal obstruction or pneumoperitoneum. Fecal pattern is normal. Nica ng bases are clear. There are no pathologic calcifications over the kidneys. IMPRESSION: Nonacute abdomen. No change.
--- NOTE | 2020-08-16 17:19 | ED ---
Nausea/Vomiting/Diarrhea HPI - General Chief complaint: Nausea/Vomiting/Diarrhea Stated complaint: DKA, vomiting Time Seen by Provider: 08/16/20 15:51 Source: patient, RN notes reviewed Mode of arrival: wheelchair Limitations: no limitations - History of Present Illness Initial comments: Patient is a 34-year-old male that presents to the emergency department complaining of nausea. He also notes that his blood sugar has been high recently. He notes that his insulin pump recently broken is been having to monitor and administer insulin on his own. He noted that he feels like he is in DKA as he has had issues in the past. He did not appear to be in any distress or pain while sitting up in bed during the exam and interview. Over noted the patient was a kidney transplant recipient last year. He denied any abdominal pain diarrhea constipation chest pain shortness of breath headache fever fatigue chills. - Related Data Home Medications Medication Instructions Recorded Confirmed Omeprazole 20 mg PO BID@0900,209908/28/17 08/16/20 Aspirin EC [Ecotrin Low Dose] 81 mg PO DAILY@0900 05/18/18 08/16/20 Insulin Aspart [NovoLOG Flexpen] 2 - 16 unit SQ ACHS 11/02/18 08/16/20 Atorvastatin [Lipitor] 40 mg PO HS@209911/07/19 08/16/20 Calcium Citrate 250 mg PO BID@0900,209911/07/19 08/16/20 Cholecalciferol [Vitamin D3 (25 2,000 unit PO HS@209911/07/19 08/16/20 Mcg = 1000 Iu)] Fludrocortisone [Florinef] 0.1 mg PO DAILY@0900 11/07/19 08/16/20 Loratadine [Claritin] 10 mg PO DAILY@0900 PRN 11/07/19 08/16/20 Midodrine HCl 10 mg PO TID@0900,1400,209911/07/19 08/16/20 Tacrolimus [Envarsus Xr] 3 mg PO DAILY@00 11/07/19 08/16/20 mycophenolate mofetiL [Cellcept] 1,000 mg PO BID@0900,209911/07/19 08/16/20 predniSONE 5 mg PO DAILY@00 11/07/19 08/16/20 Previous Rx's Medication Instructions Recorded Ondansetron Odt [Zofran Odt] 4 mg PO Q8HR PRN #30 tab 11/07/19 Allergies Allergy/AdvReac Type Severity Reaction Status Date / Time metoclopramide [From Reglan] Allergy ITCHY Verified 08/16/20 15:47 FEELING " Review of Systems ROS Statement: Those systems with pertinent positive or pertinent negative responses have been documented in the HPI. ROS Other: All systems not noted in ROS Statement are negative. Past Medical History Past Medical History: Diabetes Mellitus, Eye Disorder, GERD/Reflux, Hyperlipidemia, Hypertension, Renal Disease Additional Past Medical History / Comment(s): past DKA, neuropathy bilateral feet, diabetic nephropathy/ESRD with hemodialysis M/W/F pt planning establishing at [facility] for possible kidney transplant, diabetic retinopathy/bleeds bi laterally-pt legally blind, gastroparesis with botox treatment, esophagitis, hiatal hernia, History of Any Multi-Drug Resistant Organisms: None Reported Past Surgical History: Hernia Repair Additional Past Surgical History / Comment(s): Vitrectomy right eye, 04/2017 bilateral laser eye surgery for retinal bleeds unsuccessful, eye injections, EGD, colonoscopy, dialysis cath placed rt upper chest on 12-03-17, graft rt forearm 10/06/18 for dialysis, L inguinal hernia repair, kidney transplant- left Past Anesthesia/Blood Transfusion Reactions: Postoperative Nausea & Vomiting (PONV) Additional Past Anesthesia/Blood Transfusion Reaction / Comment(s): clausterphobia, Pt has received multiple transfusions. Past Psychological History: Depression Smoking Status: Never smoker Past Alcohol Use History: None Reported Past Drug Use History: None Reported - Past Family History Father Family Medical History: No Reported History Additional Family Medical History / Comment(s): Father is healthy Mother Family Medical History: No Reported History Additional Family Medical History / Comment(s): Mother is healthy. General Exam Limitations: no limitations General appearance: alert, in no apparent distress Head exam: Present: atraumatic, normocephalic, normal inspection Eye exam: Present: normal appearance, PERRL, EOMI. Absent: scleral icterus, conjunctival injection, periorbital swelling Neck exam: Present: normal inspection Respiratory exam: Present: normal lung sounds bilaterally. Absent: respiratory distress, wheezes, rales, rhonchi, stridor Cardiovascular Exam: Present: regular rate, normal rhythm, normal heart sounds. Absent: systolic murmur, diastolic murmur, rubs, gallop, clicks GI/Abdominal exam: Present: soft, normal bowel sounds. Absent: distended, tenderness, guarding, rebound, rigid Extremities exam: Present: normal inspection, full ROM, normal capillary refill. Absent: tenderness, pedal edema, joint swelling, calf tenderness Neurological exam: Present: alert, oriented X3 Psychiatric exam: Present: normal affect, normal mood Skin exam: Present: warm, dry, intact, normal color. Absent: rash Course Vital Signs 08/16/20 08/16/20 08/16/20 15:47 16:50 17:00 Temperature 97.8 F Pulse Rate 97 Respiratory 20 18 18 Rate Blood Pressure 107/68 O2 Sat by Pulse 93 L Oximetry 08/16/20 18:00 Temperature Pulse Rate 90 Respiratory 18 Rate Blood Pressure 133/84 O2 Sat by Pulse 96 Oximetry Medical Decision Making - Medical Decision Making 34-year-old male complaining of nausea, thinks that he might be in DKA. Labs, KUB, 1 L normal saline, 4 mg of Zofran ordered. Labs: BU when 29, creatinine 1.31 serum glucose 301 acetone positive. 1 more liter of normal saline, 2 units of NovoLog ordered. Patient is also that he can go home today. Case discussed with Dr. Douglas, patient discharge home. - Lab Data Result diagrams: 08/16/20 16:21 08/16/20 16:21 Lab Results 08/16/20 08/16/20 08/16/20 Range/Units 16:02 16:21 16:21 WBC 10.6 (3.8-10.6) k/uL RBC 5.47 (4.30-5.90) m/uL Hgb 16.0 (13.0-17.5) gm/dL Hct 46.6 (39.0-53.0) % MCV 85.1 (80.0-100.0) fL MCH 29.2 (25.0-35.0) pg MCHC 34.3 (31.0-37.0) g/dL RDW 13.5 (11.5-15.5) % Plt Count 155 (150-450) k/uL MPV 9.5 Neutrophils % 89 % Lymphocytes % 5 % Monocytes % 4 % Eosinophils % 2 % Basophils % 0 % Neutrophils # 9.4 H (1.3-7.7) k/uL Lymphocytes # 0.5 L (1.0-4.8) k/uL Monocytes # 0.4 (0-1.0) k/uL Eosinophils # 0.2 (0-0.7) k/uL Basophils # 0.0 (0-0.2) k/uL VBG pH (7.31-7.41) VBG pCO2 (37-51) mmHg VBG HCO3 (24-28) mmol/L Sodium 137 (137-145) mmol/L Potassium 4.5 (3.5-5.1) mmol/L Chloride 93 L (98-107) mmol/L Carbon Dioxide 25 (22-30) mmol/L Anion Gap 19 mmol/L BUN 29 H (9-20) mg/dL Creatinine 1.31 H (0.66-1.25) mg/dL Est GFR (CKD-EPI)AfAm 82 (>60 ml/min/1.73 sqM) Est GFR (CKD-EPI)NonAf 71 (>60 ml/min/1.73 sqM) Glucose 301 H (74-99) mg/dL POC Glucose (mg/dL) 309 H (75-99) mg/dL POC Glu Direct Chill Caster ID Bertha Gonzalez Plasma Lactic Acid [place] (0.7-2.0) mmol/L Calcium 10.1 (8.4-10.2) mg/dL Total Bilirubin 1.4 H (0.2-1.3) mg/dL AST 36 (17-59) U/L ALT 49 (4-49) U/L Alkaline Phosphatase 116 (38-126) U/L Total Protein 7.3 (6.3-8.2) g/dL Albumin 4.9 (3.5-5.0) g/dL Amylase 44 (30-110) U/L Lipase 36 (23-300) U/L Urine Color Urine Appearance (Clear) Urine pH (5.0-8.0) Ur Specific [place] (1.001-1.035) Urine Protein (Negative) Urine Glucose (UA) (Negative) Urine Ketones (Negative) Urine Blood (Negative) Urine Nitrite (Negative) Urine Bilirubin (Negative) Urine Urobilinogen (<2.0) mg/dL Ur Leukocyte Esterase (Negative) Acetone, Qual Positive (Negative) 07/07/21 07/07/21 07/07/21 Range/Units 16:21 16:21 16:29 WBC (3.8-10.6) k/uL RBC (4.30-5.90) m/uL Hgb (13.0-17.5) gm/dL Hct (39.0-53.0) % MCV (80.0-100.0) fL MCH (25.0-35.0) pg MCHC (31.0-37.0) g/dL RDW (11.5-15.5) % Plt Count (150-450) k/uL MPV Neutrophils % % Lymphocytes % % Monocytes % % Eosinophils % % Basophils % % Neutrophils # (1.3-7.7) k/uL Lymphocytes # (1.0-4.8) k/uL Monocytes # (0-1.0) k/uL Eosinophils # (0-0.7) k/uL Basophils # (0-0.2) k/uL VBG pH 7.35 (7.31-7.41) VBG pCO2 46 (37-51) mmHg VBG HCO3 25 (24-28) mmol/L Sodium (137-145) mmol/L Potassium (3.5-5.1) mmol/L Chloride (98-107) mmol/L Carbon Dioxide (22-30) mmol/L Anion Gap mmol/L BUN (9-20) mg/dL Creatinine (0.66-1.25) mg/dL Est GFR (CKD-EPI)AfAm (>60 ml/min/1.73 sqM) Est GFR (CKD-EPI)NonAf (>60 ml/min/1.73 sqM) Glucose (74-99) mg/dL POC Glucose (mg/dL) (75-99) mg/dL POC Glu Direct Chill Caster ID Plasma Lactic Acid [place] 1.4 (0.7-2.0) mmol/L Calcium (8.4-10.2) mg/dL Total Bilirubin (0.2-1.3) mg/dL AST (17-59) U/L ALT (4-49) U/L Alkaline Phosphatase (38-126) U/L Total Protein (6.3-8.2) g/dL Albumin (3.5-5.0) g/dL Amylase (30-110) U/L Lipase (23-300) U/L Urine Color Light Yellow Urine Appearance Clear (Clear) Urine pH 5.0 (5.0-8.0) Ur Specific [place] 1.023 (1.001-1.035) Urine Protein Negative (Negative) Urine Glucose (UA) 4+ H (Negative) Urine Ketones 3+ H (Negative) Urine Blood Negative (Negative) Urine Nitrite Negative (Negative) Urine Bilirubin Negative (Negative) Urine Urobilinogen <2.0 (<2.0) mg/dL Ur Leukocyte Esterase Negative (Negative) Acetone, Qual (Negative) Disposition Clinical Impression: Dehydration, Nausea & vomiting Disposition: HOME SELF-CARE Condition: Stable Instructions (If sedation given, give patient instructions): Acute Nausea and Vomiting (ED) Additional Instructions: Please return to the Emergency Department if symptoms worsen or any other concerns. Follow-up with primary care as needed. Monitor blood sugar regularly and use insulin as prescribed. Increase oral fluids. Is patient prescribed a controlled substance at d/c from ED?: No Referrals: Sahra Hurtado MD [Primary Care Provider] - 1-2 days Time of Disposition: 19:08
[2020-08-16] MEDS ORDERED: SODIUM CHLORIDE 0.9% 1,000 ML IV ONE (17:53)
[2020-08-16] MEDS ORDERED: INSULIN ASPART (NovoLOG) 100 UNIT/ML VIAL SQ ONE (17:53)
[2020-08-16 17:54] VITALS: RESP 18
[2020-08-16 18:19] LABS: Appearance,Urine Clear (Clear); Bilirubin,Urine Negative (Negative); Blood,Urine Negative (Negative); Color,Urine Light Yellow; Glucose,Urine (UA) 4+ (Negative); Leukocyte Esterase,Urine Negative (Negative); Nitrite,Urine Negative (Negative); Protein,Urine Negative (Negative); Specific Gravity,Urine 1.023 (1.001-1.035); Urobilinogen,Urine <2.0 mg/dL (<2.0)
[2020-08-16 18:23] VITALS: BP 133/84; PULSE 90
[2020-08-16 18:36] LABS: Ketones,Urine 3+ (Negative)
[2020-08-16 19:07] LABS: Glucose,Whole Blood 199 mg/dL (75-99)
[2020-08-16] MEDS ORDERED: ONDANSETRON 4 MG ODT STARTER PACK 2 TAB BTL PO STA (19:07)
== END 2020-08-16 19:27 | disposition home or self-care (01) ==
LOC: EC 15:45
DX: E86.0 Dehydration (principal); R11.2 Nausea with vomiting, unspecified; R19.7 Diarrhea, unspecified; E11.10 Type 2 diabetes mellitus with ketoacidosis without coma; E11.22 Type 2 diabetes mellitus with diabetic chronic kidney disease; K21.9 Gastro-esophageal reflux disease without esophagitis; E78.5 Hyperlipidemia, unspecified; I12.0 Hypertensive chronic kidney disease with stage 5 chronic kidney disease or end stage renal disease; N18.6 End stage renal disease; Z79.4 Long term (current) use of insulin; Z88.8 Allergy status to other drugs, medicaments and biological substances; Z94.0 Kidney transplant status; Z99.2 Dependence on renal dialysis; Z79.899 Other long term (current) drug therapy
CPT/HCPCS: 36415; 80053; 82150; 82803; 82009; 83605; 83690; 85025; 81003; 74018; 99284; 96374; 96361; 96360; J2405; S0119

== ENCOUNTER 2020-08-17 09:02 | Observation (INO) | payer MEDICARE ==
[2020-08-17 09:09] LABS: Glucose,Whole Blood 440 mg/dL (75-99)
[2020-08-17] MEDS ORDERED: ONDANSETRON 4 MG/2 ML VIAL IVP STA ×2 (09:20→11:25)
[2020-08-17] MEDS ORDERED: SODIUM CHLORIDE 0.9% 2,000 ML IV ONE (09:22)
[2020-08-17] MEDS ORDERED: INSULIN REGULAR BOLUS (FROM DRIP BAG) IV ONE (09:23)
[2020-08-17] MEDS ORDERED: Magnesium Replacement Protocol 1 EACH MISC MISCELLANE PRN (09:23)
[2020-08-17] MEDS ORDERED: Potassium Replacement Protocol 1 EACH MISC MISCELLANE PRN (09:23)
--- NOTE | 2020-08-17 09:28 | ED ---
General Adult HPI - General Chief complaint: Recheck/Abnormal Lab/Rx Stated complaint: Hyperglycemia Time Seen by Provider: 08/17/20 09:05 Source: patient, RN notes reviewed, old records reviewed Mode of arrival: wheelchair Limitations: no limitations - History of Present Illness Initial comments: This is a 34-year-old male who presents emergency Department complaining that he is a diabetic and his sugars been high. Patient states he thinks he is in DKA. Patient states she was at the hospital yesterday and he was released and told he was not in DKA. Patient states since he left he has continued to vomit and not been able to keep anything down and his sugars been running high. Patient states his insulin pump broke and has not been able to use it for the last couple of days and that is why sugars have gotten out of control. Patient also is a kidney transplant patient. Patient states he does have an insulin pump but he does not have it yet needs to be picked up today. Patient's will pick it up. - Related Data Home Medications Medication Instructions Recorded Confirmed Omeprazole 20 mg PO BID@0900,209908/28/17 08/16/20 Aspirin EC [Ecotrin Low Dose] 81 mg PO DAILY@0900 05/18/18 08/16/20 Insulin Aspart [NovoLOG Flexpen] 2 - 16 unit SQ ACHS 11/02/18 08/16/20 Atorvastatin [Lipitor] 40 mg PO HS@209911/07/19 08/16/20 Calcium Citrate 250 mg PO BID@0900,209911/07/19 08/16/20 Cholecalciferol [Vitamin D3 (25 2,000 unit PO HS@209911/07/19 08/16/20 Mcg = 1000 Iu)] Fludrocortisone [Florinef] 0.1 mg PO DAILY@89911/07/19 08/16/20 Loratadine [Claritin] 10 mg PO DAILY@0900 PRN 11/07/19 08/16/20 Midodrine HCl 10 mg PO TID@0900,1400,209911/07/19 08/16/20 Tacrolimus [Envarsus Xr] 3 mg PO DAILY@00 11/07/19 08/16/20 mycophenolate mofetiL [Cellcept] 1,000 mg PO BID@0900,209911/07/19 08/16/20 predniSONE 5 mg PO DAILY@0900 11/07/19 08/16/20 Previous Rx's Medication Instructions Recorded Ondansetron Odt [Zofran Odt] 4 mg PO Q8HR PRN #30 tab 11/07/19 Allergies Allergy/AdvReac Type Severity Reaction Status Date / Time metoclopramide [From Reglan] Allergy ITCHY Verified 08/16/20 15:47 FEELING " Review of Systems ROS Statement: Those systems with pertinent positive or pertinent negative responses have been documented in the HPI. ROS Other: All systems not noted in ROS Statement are negative. Past Medical History Past Medical History: Diabetes Mellitus, Eye Disorder, GERD/Reflux, Hyperlipidemia, Hypertension, Renal Disease Additional Past Medical History / Comment(s): past DKA, neuropathy bilateral feet, diabetic nephropathy/ESRD with hemodialysis M/W/F pt planning establishing at [facility] for possible kidney transplant, diabetic retinopathy/bleeds bilaterally-pt legally blind, gastroparesis with botox treatment, esophagitis, hiatal hernia, History of Any Multi-Drug Resistant Organisms: None Reported Past Surgical History: Hernia Repair Additional Past Surgical History / Comment(s): Vitrectomy right eye, 04/2017 bilateral laser eye surgery for retinal bleeds unsuccessful, eye injections, EGD, colonoscopy, dialysis cath placed rt upper chest on 12-03-17, graft rt for earm 10/06/18 for dialysis, L inguinal hernia repair, kidney transplant- left Past Anesthesia/Blood Transfusion Reactions: Postoperative Nausea & Vomiting (PONV) Additional Past Anesthesia/Blood Transfusion Reaction / Comment(s): clausterphobia, Pt has received multiple transfusions. Past Psychological History: Depression Smoking Status: Never smoker Past Alcohol Use History: None Reported Past Drug Use History: None Reported - Past Family History Father Family Medical History: No Reported History Additional Family Medical History / Comment(s): Father is healthy Mother Family Medical History: No Reported History Additional Family Medical History / Comment(s): Mother is healthy. General Exam - General Exam Comments Initial Comments: GENERAL: Patient is well-developed and well-nourished. Patient is nontoxic and well- hydrated and is in mild distress. ENT: Neck is soft and supple. No significant lymphadenopathy is noted. Oropharynx is clear. Dry mucous membranes. Neck has full range of motion without eliciting any pain. EYES: The sclera were anicteric and conjunctiva were pink and moist. Extraocular movements were intact and pupils were equal round and reactive to light. Eyelids were unremarkable. PULMONARY: Unlabored respirations. Good breath sounds bilaterally. No audible rales rhonchi or wheezing was noted. CARDIOVASCULAR: There is a regular rate and rhythm without any murmurs gallops or rubs. ABDOMEN: Soft and nontender with normal bowel sounds. SKIN: Skin is clear with no lesions or rashes and otherwise unremarkable. NEUROLOGIC: Patient is alert and oriented x3. Cranial nerves II through XII are grossly intact. Motor and sensory are also intact. Normal speech, volume and content. Symmetrical smile. MUSCULOSKELETAL: Normal extremities with adequate strength and full range of motion. No lower extremity swelling or edema. No calf tenderness. LYMPHATICS: No significant lymphadenopathy is noted PSYCHIATRIC: Normal psychiatric evaluation. Limitations: no limitations Course Vital Signs 08/17/20 08/17/20 09:05 10:36 Temperature 98.0 F Pulse Rate 117 H 118 H Respiratory 16 20 Rate Blood Pressure 91/51 112/61 O2 Sat by Pulse 100 100 Oximetry Medical Decision Making - Medical Decision Making EKG shows sinus tachycardia at 108 bpm SC interval is on a 44 QRS is 86 QT interval 346 QTC is 463. Patient's EKG shows no ST segment elevation or depression. I spoke with Dr. Vázquez and he agreed to admit the patient admitted the patient I wrote admitting orders. Patient received 2 L of fluid in the emergency department and also received insu rosetta bolus as well as an insulin drip. Patient was doing considerably better and I admitted the patient. - Lab Data Result diagrams: 08/17/20 09:33 08/17/20 09:33 Lab Results 08/17/20 08/17/20 08/17/20 Range/Units 09:07 09:33 09:33 WBC 13.5 H (3.8-10.6) k/uL RBC 4.84 (4.30-5.90) m/uL Hgb 14.3 (13.0-17.5) gm/dL Hct 43.3 (39.0-53.0) % MCV 89.4 (80.0-100.0) fL MCH 29.6 (25.0-35.0) pg MCHC 33.1 (31.0-37.0) g/dL RDW 14.0 (11.5-15.5) % Plt Count 168 (150-450) k/uL MPV 9.6 Neutrophils % 92 % Lymphocytes % 3 % Monocytes % 3 % Eosinophils % 0 % Basophils % 0 % Neutrophils # 12.5 H (1.3-7.7) k/uL Lymphocytes # 0.4 L (1.0-4.8) k/uL Monocytes # 0.4 (0-1.0) k/uL Eosinophils # 0.0 (0-0.7) k/uL Basophils # 0.1 (0-0.2) k/uL Sodium 134 L (137-145) mmol/L Potassium 5.3 H (3.5-5.1) mmol/L Chloride 97 L (98-107) mmol/L Carbon Dioxide 9 L* (22-30) mmol/L Anion Gap 28 mmol/L BUN 28 H (9-20) mg/dL Creatinine 1.63 H (0.66-1.25) mg/dL Est GFR (CKD-EPI)AfAm 63 (>60 ml/min/1.73 sqM) Est GFR (CKD-EPI)NonAf 54 (>60 ml/min/1.73 sqM) Glucose 538 H* (74-99) mg/dL POC Glucose (mg/dL) 440 H (75-99) mg/dL POC Glu Bilingual Recruiter ID [facility] Calcium 9.7 (8.4-10.2) mg/dL Total Bilirubin 1.2 (0.2-1.3) mg/dL AST 25 (17-59) U/L ALT 32 (4-49) U/L Alkaline Phosphatase 118 (38-126) U/L Total Protein 6.0 L (6.3-8.2) g/dL Albumin 4.1 (3.5-5.0) g/dL Acetone, Qual Positive (Negative) 08/17/20 Range/Units 10:25 WBC (3.8-10.6) k/uL RBC (4.30-5.90) m/uL Hgb (13.0-17.5) gm/dL Hct (39.0-53.0) % MCV (80.0-100.0) fL MCH (25.0-35.0) pg MCHC (31.0-37.0) g/dL RDW (11.5-15.5) % Plt Count (150-450) k/uL MPV Neutrophils % % Lymphocytes % % Monocytes % % Eosinophils % % Basophils % % Neutrophils # (1.3-7.7) k/uL Lymphocytes # (1.0-4.8) k/uL Monocytes # (0-1.0) k/uL Eosinophils # (0-0.7) k/uL Basophils # (0-0.2) k/uL Sodium (137-145) mmol/L Potassium (3.5-5.1) mmol/L Chloride (98-107) mmol/L Carbon Dioxide (22-30) mmol/L Anion Gap mmol/L BUN (9-20) mg/dL Creatinine (0.66-1.25) mg/dL Est GFR (CKD-EPI)AfAm (>60 ml/min/1.73 sqM) Est GFR (CKD-EPI)NonAf (>60 ml/min/1.73 sqM) Glucose (74-99) mg/dL POC Glucose (mg/dL) 476 H (75-99) mg/dL POC Glu Bilingual Recruiter ID Jovanna Burgess Calcium (8.4-10.2) mg/dL Total Bilirubin (0.2-1.3) mg/dL AST (17-59) U/L ALT (4-49) U/L Alkaline Phosphatase (38-126) U/L Total Protein (6.3-8.2) g/dL Albumin (3.5-5.0) g/dL Acetone, Qual (Negative) Critical Care Time Critical Care Time: Yes Total Critical Care Time: 35 Disposition Clinical Impression: Diabetic ketoacidosis Disposition: ADMITTED IP TO THIS [facility] Referrals: Sahra Hurtado MD [Primary Care Provider] - 1-2 days Time of Disposition: 10:59
[2020-08-17 09:51] LABS: Basophils # (A) 0.1 k/uL (0-0.2); Basophils % (A) 0 %; Eosinophils % (A) 0 %; HCT 43.3 % (39.0-53.0); HGB 14.3 gm/dL (13.0-17.5); Lymphocytes # (A) 0.4 k/uL (1.0-4.8); Lymphocytes % (A) 3 %; MCH 29.6 pg (25.0-35.0); MCHC 33.1 g/dL (31.0-37.0); MCV 89.4 fL (80.0-100.0); Mean Platelet Volume 9.6; Monocytes # (A) 0.4 k/uL (0-1.0); Monocytes % (A) 3 %; Neutrophils # (A) 12.5 k/uL (1.3-7.7); Neutrophils % (A) 92 %; Platelet Count 168 k/uL (150-450); RBC 4.84 m/uL (4.30-5.90); WBC 13.5 k/uL (3.8-10.6)
[2020-08-17 10:06] LABS: ALT 32 U/L (4-49); AST 25 U/L (17-59); African American GFR (CKD) 63 (>60 ml/min/1.73 sqM); Albumin 4.1 g/dL (3.5-5.0); Alkaline Phosphatase 118 U/L (38-126); Anion Gap 28 mmol/L; Blood Urea Nitrogen 28 mg/dL (9-20); Calcium 9.7 mg/dL (8.4-10.2); Chloride 97 mmol/L (98-107); Non-African American GFR(CKD) 54 (>60 ml/min/1.73 sqM); Potassium 5.3 mmol/L (3.5-5.1); Sodium 134 mmol/L (137-145); Total Bilirubin 1.2 mg/dL (0.2-1.3)
[2020-08-17 10:15] LABS: Glucose 538 mg/dL (74-99)
[2020-08-17 10:16] LABS: Carbon Dioxide 9 mmol/L (22-30)
[2020-08-17 10:27] LABS: Glucose,Whole Blood 476 mg/dL (75-99)
[2020-08-17] MEDS: INSULIN REGULAR 100 UNIT in SODIUM CHLORIDE 0.9% 100 ML IV SCH (10:28)
[2020-08-17] MEDS: SODIUM CHLORIDE 0.9% 1,000 ML IV SCH ×5 (11:34→21:50)
[2020-08-17 11:46] LABS: Glucose,Whole Blood 388 mg/dL (75-99)
[2020-08-17 12:39] LABS: Glucose,Whole Blood 308 mg/dL (75-99)
[2020-08-17 13:02] LABS: Phosphorus 4.6 mg/dL (2.5-4.5); Potassium 4.5 mmol/L (3.5-5.1)
[2020-08-17] MEDS ORDERED: PANTOPRAZOLE 40 MG/10 ML VIAL IVP ONE (13:24)
[2020-08-17 13:29] LABS: Glucose,Whole Blood 264 mg/dL (75-99)
[2020-08-17] MEDS: D5-0.45% NACL WITH KCL 20MEQ/L 1,000 ML IV SCH ×2 (13:50→21:47)
[2020-08-17 14:37] LABS: Glucose,Whole Blood 262 mg/dL (75-99)
[2020-08-17 15:38] LABS: Glucose,Whole Blood 224 mg/dL (75-99)
[2020-08-17 16:36] LABS: Glucose,Whole Blood 191 mg/dL (75-99)
[2020-08-17 17:24] LABS: Potassium 4.4 mmol/L (3.5-5.1)
[2020-08-17 17:34] LABS: Glucose,Whole Blood 201 mg/dL (75-99)
[2020-08-17 18:42] LABS: Glucose,Whole Blood 170 mg/dL (75-99)
[2020-08-17] MEDS ORDERED: PROCHLORPERAZINE INJ 10 MG/2 ML VIAL IVP STA (19:26)
[2020-08-17 19:46] LABS: Glucose,Whole Blood 163 mg/dL (75-99)
[2020-08-17 20:48] LABS: Glucose,Whole Blood 182 mg/dL (75-99)
[2020-08-17] MEDS ORDERED: ATORVASTATIN 40 MG TAB PO SCH (21:00)
[2020-08-17] MEDS: MIDODRINE 5 MG TAB PO SCH (21:30)
[2020-08-17] MEDS: PANTOPRAZOLE 40 MG/10 ML VIAL IVP SCH (21:30)
[2020-08-17 21:34] LABS: Phosphorus 3.1 mg/dL (2.5-4.5); Potassium 4.9 mmol/L (3.5-5.1)
[2020-08-17 21:56] LABS: Glucose,Whole Blood 207 mg/dL (75-99)
[2020-08-17 22:44] LABS: Glucose,Whole Blood 212 mg/dL (75-99)
--- NOTE | 2020-08-17 22:53 | P.HPIM ---
History of Present Illness H&P Date: 08/17/20 Chief Complaint: High blood sugar Patient is a 34-year-old male with a known history of diabetes type 1 on insulin pump, diabetic gastroparesis, diabetic nephropathy with history of ESRD and status post renal transplant, hyperlipidemia, GERD, hypertension, bilateral legal blindness, depression and other medical problems presents to ER with complaints of elevated blood sugars. Patient was seen in the ER yesterday and was told he was not in DKA. Patient states that after he left the ER he continued having nausea and episodes of vomiting several times. Unable to keep down anything and h his blood sugars are very high. Patient's states that his insulin pump was not working and has not been able to use it for the past couple of days. Patient follows with Dr. Weiss in the endocrinology clinic. Denies any complaints of fever or chills.. No complaints of chest pain or shortness of breath. denied any dysuria or hematuria. EKG showed sinus tachycardia Laboratory data showed WBC 13.5 hemoglobin 14.3 and platelets 168 Sodium 134 potassium 5.3 bicarb is 9 BUN 28 and creatinine 1.63 and blood sugar is 538 Acetone positive Review of Systems Constitutional: Patient denies any fever or chills . Does have generalized weakness and fatigue.. Abdomen: Nausea vomiting and no abdominal pain or diarrhea. No constipation.. Cardiovascular: Patient denies any chest pain or short of breath no palpitations. Respiratory: patient denied any cough or sputum production. No shortness of breath Neurologic: Patient denied any numbness or tingling headache. Complete review of systems could not be obtained from the patient. Past Medical History Past Medical History: Diabetes Mellitus, Eye Disorder, GERD/Reflux, Hyperlipidemia, Hypertension, Renal Disease Additional Past Medical History / Comment(s): past DKA, neuropathy bilateral feet, diabetic nephropathy/ESRD with hemodialysis M/W/F pt planning establishing at [facility] for possible kidney transplant, diabetic retinopathy/bleeds bilaterally-pt legally blind, gastroparesis with botox treatment, esophagitis, hiatal hernia, History of Any Multi-Drug Resistant Organisms: None Reported Past Surgical History: Hernia Repair Additional Past Surgical History / Comment(s): Vitrectomy right eye, 04/2017 bilateral laser eye surgery for retinal bleeds unsuccessful, eye injections, EGD, colonoscopy, dialysis cath placed rt upper chest on 12-03-17, graft rt forearm 10/06/18 for dialysis, L inguinal hernia repair, kidney transplant- left Past Anesthesia/Blood Transfusion Reactions: Postoperative Nausea & Vomiting (PONV) Additional Past Anesthesia/Blood Transfusion Reaction / Comment(s): clausterphobia, Pt has received multiple transfusions. Past Psychological History: Depression Smoking Status: Never smoker Past Alcohol Use History: None Reported Past Drug Use History: None Reported - Past Family History Father Family Medical History: No Reported History Additional Family Medical History / Comment(s): Father is healthy Mother Family Medical History: No Reported History Additional Family Medical History / Comment(s): Mother is healthy. Medications and Allergies Home Medications Medication Instructions Recorded Confirmed Type Omeprazole 20 mg PO BID@0900,209908/28/17 08/17/20 History Aspirin EC [Ecotrin Low Dose] 81 mg PO DAILY@00 05/18/18 08/17/20 History Insulin Aspart [NovoLOG Flexpen] 2 - 16 unit SQ ACHS 11/02/18 08/17/20 History Atorvastatin [Lipitor] 40 mg PO HS@209911/07/19 08/17/20 History Calcium Citrate 250 mg PO BID@09,209911/07/19 08/17/20 History Cholecalciferol [Vitamin D3 (25 2,000 unit PO HS@209911/07/19 08/17/20 History Mcg = 1000 Iu)] Fludrocortisone [Florinef] 0.1 mg PO DAILY@89911/07/19 08/17/20 History Loratadine [Claritin] 10 mg PO DAILY@0900 PRN 11/07/19 08/17/20 History Midodrine HCl 10 mg PO TID@0900,1400,209911/07/19 08/17/20 History Ondansetron Odt [Zofran Odt] 4 mg PO Q8HR PRN #30 tab 11/07/19 08/17/20 Rx Tacrolimus [Envarsus Xr] 3 mg PO DAILY@89911/07/19 08/17/20 History mycophenolate mofetiL [Cellcept] 1,000 mg PO BID@0900,209911/07/19 08/17/20 History predniSONE 5 mg PO DAILY@89911/07/19 08/17/20 History Allergies Allergy/AdvReac Type Severity Reaction Status Date / Time metoclopramide [From Reglan] Allergy ITCHY Verified 08/17/20 11:15 FEELING " Physical Exam Vitals: Vital Signs Temp Pulse Resp BP Pulse Ox 08/17/20 16:41 112 H 18 160/100 99 08/17/20 15:36 104 H 21 169/93 98 08/17/20 15:05 115 H 18 151/87 97 08/17/20 13:13 117 H 18 152/90 99 08/17/20 11:46 126 H 18 140/75 100 08/17/20 10:36 118 H 20 112/61 100 08/17/20 09:05 98.0 F 117 H 16 91/51 100 Intake and Output 08/17/20 08/17/20 08/17/20 06:59 14:59 22:59 Intake Total 27.817 Balance 27.817 Intake: Intake, IV Titration 27.817 Amount Insulin Regular 100 unit 27.817 In Sodium Chloride 0.9% 100 ml @ 0.1 UNITS/KG/HR 6.597 mls/hr IV .[id number] [facility] Rx#:[id number] Other: Weight 65.317 kg PHYSICAL EXAMINATION: Awake and alert. Patient is lethargic and drowsy and appears to be in mild distress due to nausea... HEENT: Normocephalic. Neck is supple. Pupils reactive. Nostrils clear. Oral cavity is moist. Ears reveal no drainage. Neck reveals no JVD, carotid bruits, or thyromegaly. CHEST EXAMINATION: Trachea is central. Symmetrical expansion. Lung curran clear to auscultation and percussion. CARDIAC: Normal S1, S2 with no gallops. No murmurs ABDOMEN: Soft. non tender , Bowel sounds normal. No organomegaly. No abdominal bruits. Extremities: reveal no edema. No clubbing or cyanosis Neurologically awake, alert, oriented x3 with well-coordinated movements. No focal deficits noted Skin: No rash or skin lesions. Psychiatric: Coperative. Could not be assessed completely. Musculoskeletal: No joint swelling or deformity. Results CBC & Chem 7: 08/17/20 09:33 08/17/20 20:55 Labs: Abnormal Lab Results - Last 24 Hours (Table) 08/17/20 08/17/20 08/17/20 Range/Units 09:07 09:33 09:33 WBC 13.5 H (3.8-10.6) k/uL Neutrophils # 12.5 H (1.3-7.7) k/uL Lymphocytes # 0.4 L (1.0-4.8) k/uL Sodium 134 L (137-145) mmol/L Potassium 5.3 H (3.5-5.1) mmol/L Chloride 97 L (98-107) mmol/L Carbon Dioxide 9 L* (22-30) mmol/L BUN 28 H (9-20) mg/dL Creatinine 1.63 H (0.66-1.25) mg/dL Glucose 538 H* (74-99) mg/dL POC Glucose (mg/dL) 440 H (75-99) mg/dL Phosphorus (2.5-4.5) mg/dL Total Protein 6.0 L (6.3-8.2) g/dL 08/17/20 08/17/20 08/17/20 Range/Units 10:25 11:45 12:37 WBC (3.8-10.6) k/uL Neutrophils # (1.3-7.7) k/uL Lymphocytes # (1.0-4.8) k/uL Sodium (137-145) mmol/L Potassium (3.5-5.1) mmol/L Chloride (98-107) mmol/L Carbon Dioxide (22-30) mmol/L BUN (9-20) mg/dL Creatinine (0.66-1.25) mg/dL Glucose (74-99) mg/dL POC Glucose (mg/dL) 476 H 388 H 308 H (75-99) mg/dL Phosphorus (2.5-4.5) mg/dL Total Protein (6.3-8.2) g/dL 08/17/20 08/17/20 08/17/20 Range/Units 12:40 13:28 14:35 WBC (3.8-10.6) k/uL Neutrophils # (1.3-7.7) k/uL Lymphocytes # (1.0-4.8) k/uL Sodium (137-145) mmol/L Potassium (3.5-5.1) mmol/L Chloride (98-107) mmol/L Carbon Dioxide 9 L* (22-30) mmol/L BUN 28 H (9-20) mg/dL Creatinine 1.61 H (0.66-1.25) mg/dL Glucose 343 H (74-99) mg/dL POC Glucose (mg/dL) 264 H 262 H (75-99) mg/dL Phosphorus 4.6 H (2.5-4.5) mg/dL Total Protein (6.3-8.2) g/dL 08/17/20 08/17/20 Range/Units 15:36 16:35 WBC (3.8-10.6) k/uL Neutrophils # (1.3-7.7) k/uL Lymphocytes # (1.0-4.8) k/uL Sodium (137-145) mmol/L Potassium (3.5-5.1) mmol/L Chloride (98-107) mmol/L Carbon Dioxide (22-30) mmol/L BUN (9-20) mg/dL Creatinine (0.66-1.25) mg/dL Glucose (74-99) mg/dL POC Glucose (mg/dL) 224 H 191 H (75-99) mg/dL Phosphorus (2.5-4.5) mg/dL Total Protein (6.3-8.2) g/dL Thrombosis Risk Factor Assmnt - DVT/VTE Prophylaxis DVT/VTE Prophylaxis: Pharmacologic Prophylaxis ordered Assessment and Plan Assessment: Acute diabetic ketoacidosis Metabolic acidosis secondary to DKA Acute kidney injury likely prerenal. Baseline 1.2. 1.63 on admission Mild hyperkalemia due to acidosis. Intractable nausea and vomiting due to DKA and diabetic gastroparesis Hypertension Hyperlipidemia GERD Diabetes type 1 on insulin pump Diabetic nephropathy status post renal transplant in 2019. Was on hemodialysis. Legally blind due to diabetic retinopathy Hiatal hernia Depression DVT prophylaxis with heparin subcu Plan: Patient will be continued on IV hydration and insulin drip started at 0.1. unit/kg body weight. Follow-up electrolytes every 4 hourly. Monitor renal function. Continue with insulin drip until anion gap closes. Started on PPI twice daily IV and symptomatic management for nausea and vomiting. Continue with home medications including immunosuppressants due to history of renal transplant. Follow-up closely Prognosis is guarded at this time. Time with Patient: Greater than 30
[2020-08-17 23:37] LABS: Glucose,Whole Blood 176 mg/dL (75-99)
[2020-08-18 00:20] LABS: Glucose,Whole Blood 174 mg/dL (75-99)
[2020-08-18] MEDS ORDERED: ONDANSETRON 4 MG/2 ML VIAL IVP PRN (01:39)
[2020-08-18 01:59] LABS: Glucose,Whole Blood 130 mg/dL (75-99)
[2020-08-18 03:19] LABS: Glucose,Whole Blood 124 mg/dL (75-99)
[2020-08-18] MEDS: INSULIN REGULAR 100 UNIT in SODIUM CHLORIDE 0.9% 100 ML IV SCH (03:19)
[2020-08-18 04:22] LABS: Glucose,Whole Blood 158 mg/dL (75-99)
[2020-08-18] MEDS: D5-0.45% NACL WITH KCL 20MEQ/L 1,000 ML IV SCH ×2 (04:26→09:02)
[2020-08-18 04:29] LABS: RBC 4.81 m/uL (4.30-5.90); WBC 14.4 k/uL (3.8-10.6)
[2020-08-18 04:30] LABS: Basophils # (A) 0.1 k/uL (0-0.2); Basophils % (A) 0 %; Eosinophils # (A) 0.1 k/uL (0-0.7); Eosinophils % (A) 1 %; HCT 41.1 % (39.0-53.0); HGB 14.2 gm/dL (13.0-17.5); Lymphocytes # (A) 0.8 k/uL (1.0-4.8); Lymphocytes % (A) 6 %; MCH 29.6 pg (25.0-35.0); MCHC 34.7 g/dL (31.0-37.0); MCV 85.5 fL (80.0-100.0); Mean Platelet Volume 10.6; Monocytes # (A) 0.9 k/uL (0-1.0); Monocytes % (A) 6 %; Neutrophils # (A) 12.3 k/uL (1.3-7.7); Neutrophils % (A) 85 %; Platelet Count 144 k/uL (150-450); RDW 14.1 % (11.5-15.5)
[2020-08-18 04:43] LABS: ALT 29 U/L (4-49); AST 26 U/L (17-59); African American GFR (CKD) >90 (>60 ml/min/1.73 sqM); Albumin 3.4 g/dL (3.5-5.0); Alkaline Phosphatase 85 U/L (38-126); Anion Gap 8 mmol/L; Blood Urea Nitrogen 18 mg/dL (9-20); Calcium 8.4 mg/dL (8.4-10.2); Carbon Dioxide 21 mmol/L (22-30); Chloride 109 mmol/L (98-107); Glucose 135 mg/dL (74-99); Magnesium 1.6 mg/dL (1.6-2.3); Non-African American GFR(CKD) 79 (>60 ml/min/1.73 sqM); Phosphorus 2.6 mg/dL (2.5-4.5); Potassium 4.5 mmol/L (3.5-5.1); Sodium 138 mmol/L (137-145); Total Bilirubin 0.7 mg/dL (0.2-1.3); Total Protein 5.8 g/dL (6.3-8.2)
[2020-08-18 05:45] LABS: Glucose,Whole Blood 155 mg/dL (75-99)
[2020-08-18 07:03] LABS: Glucose,Whole Blood 155 mg/dL (75-99)
[2020-08-18 08:12] LABS: Glucose,Whole Blood 107 mg/dL (75-99)
[2020-08-18] MEDS: MIDODRINE 5 MG TAB PO SCH ×2 (08:30→13:59)
[2020-08-18] MEDS ORDERED: PANTOPRAZOLE 40 MG/10 ML VIAL IVP SCH (09:00)
[2020-08-18] MEDS ORDERED: FLUDROCORTISONE 0.1 MG TAB PO SCH (09:00)
[2020-08-18] MEDS ORDERED: TACROLIMUS 1 MG PO SCH (09:00)
[2020-08-18] MEDS ORDERED: predniSONE 5 MG TAB PO SCH (09:00)
[2020-08-18] MEDS: PANTOPRAZOLE 40 MG/10 ML VIAL IVP SCH (10:03)
[2020-08-18 10:08] LABS: Glucose,Whole Blood 116 mg/dL (75-99)
[2020-08-18] MEDS ORDERED: INSPUCOR MISCELLANE PRN ×2 (11:06→21:00)
[2020-08-18] MEDS ORDERED: INSULIN ASPART (NovoLOG) 100 UNIT/ML VIAL SQ PRN (11:06)
[2020-08-18] MEDS ORDERED: INSULIN PUMP BASAL RATES 1 EACH MISC MISCELLANE PRN ×2 (11:06→21:00)
[2020-08-18 11:15] LABS: Glucose,Whole Blood 145 mg/dL (75-99)
[2020-08-18 12:26] LABS: Glucose,Whole Blood 172 mg/dL (75-99)
[2020-08-18] MEDS ORDERED: INSULIN PUMP MEAL BOLUS 1 UNIT MISC MISCELLANE SCH ×2 (12:30→21:00)
[2020-08-18 13:56] VITALS: RESP 17
[2020-08-18 16:46] VITALS: BP 138/84; PULSE 86; TEMP 98.9
[2020-08-18] MEDS ORDERED: INSULIN ASPART (NovoLOG) 100 UNIT/ML VIAL SQ SCH (17:30)
[2020-08-18] MEDS ORDERED: INSULIN DETEMIR (LEVEMIR) 100 UNIT/ML SYR SQ SCH (21:00)
--- NOTE | 2020-09-10 19:17 | P.DS ---
Providers Date of admission: 08/17/20 11:01 Expected date of discharge: 08/18/20 Attending physician: Ian Vázquez Primary care physician: Sahra Bryant Va Hospital Course: Patient is a 34-year-old male with a known history of diabetes type 1 on insulin pump, diabetic gastroparesis, diabetic nephropathy with history of ESRD and status post renal transplant, hyperlipidemia, GERD, hypertension, bilateral legal blindness, depression and other medical problems presents to ER with complaints of elevated blood sugars. Patient was seen in the ER yesterday and was told he was not in DKA. Patient states that after he left the ER he continu ed having nausea and episodes of vomiting several times. Unable to keep down anything and h his blood sugars are very high. Patient's states that his insulin pump was not working and has not been able to use it for the past couple of days. Patient follows with Dr. Weiss in the endocrinology clinic. Denies any complaints of fever or chills.. No complaints of chest pain or shortness of breath. denied any dysuria or hematuria. EKG showed sinus tachycardia Laboratory data showed WBC 13.5 hemoglobin 14.3 and platelets 168 Sodium 134 potassium 5.3 bicarb is 9 BUN 28 and creatinine 1.63 and blood sugar is 538 Acetone positive Acute diabetic ketoacidosis Metabolic acidosis secondary to DKA Acute kidney injury likely prerenal. Baseline 1.2. 1.63 on admission Mild hyperkalemia due to acidosis. Intractable nausea and vomiting due to DKA and diabetic gastroparesis Hypertension Hyperlipidemia GERD Diabetes type 1 on insulin pump Diabetic nephropathy status post renal transplant in 2019. Was on hemodialysis. Legally blind due to diabetic retinopathy Hiatal hernia Depression DVT prophylaxis with heparin subcu Plan: Patient will be continued on IV hydration and insulin drip started at 0.1. unit/kg body weight. Follow-up electrolytes every 4 hourly. Monitor renal function. Continue with insulin drip until anion gap closes. Started on PPI twice daily IV and symptomatic management for nausea and vomiting. Continue with home medications including immunosuppressants due to history of renal transplant. patient responded well to treatment and was dc'ed in a stable condition Plan - Discharge Summary Discharge Rx Participant: No New Discharge Prescriptions: Continue Omeprazole 20 mg PO BID@0900,2100 Aspirin EC [Ecotrin Low Dose] 81 mg PO DAILY@0900 Insulin Aspart [NovoLOG Flexpen] 2 - 16 unit SQ ACHS Ondansetron Odt [Zofran ODT] 4 mg PO Q8HR PRN #30 tab PRN Reason: Nausea Loratadine [Claritin] 10 mg PO DAILY@0900 PRN PRN Reason: Allergy Symptoms mycophenolate mofetiL [Cellcept] 1,000 mg PO BID@899,2099 predniSONE 5 mg PO DAILY@0900 Tacrolimus [Envarsus Xr] 3 mg PO DAILY@0900 Midodrine HCl 10 mg PO TID@0900,1399,2099 Cholecalciferol [Vitamin D3 (25 Mcg = 1000 Iu)] 2,000 unit PO HS@2099 Fludrocortisone [Florinef] 0.1 mg PO DAILY@899 Atorvastatin [Lipitor] 40 mg PO HS@2099 Calcium Citrate 250 mg PO BID@899,2099 No Action Prochlorperazine [Compazine] 10 mg PO Q8H #30 tab Discharge Medication List Omeprazole 20 mg PO BID@899,209908/28/17 [History] Aspirin EC [Ecotrin Low Dose] 81 mg PO DAILY@89905/18/18 [History] Insulin Aspart [NovoLOG Flexpen] 2 - 16 unit SQ ACHS 11/02/18 [History] Atorvastatin [Lipitor] 40 mg PO HS@209911/07/19 [History] Calcium Citrate 250 mg PO BID@899,209911/07/19 [History] Cholecalciferol [Vitamin D3 (25 Mcg = 1000 Iu)] 2,000 unit PO HS@209911/07/19 [History] Fludrocortisone [Florinef] 0.1 mg PO DAILY@89911/07/19 [History] Loratadine [Claritin] 10 mg PO DAILY@899 PRN 11/07/19 [History] Midodrine HCl 10 mg PO TID@0900,1400,209911/07/19 [History] Ondansetron Odt [Zofran ODT] 4 mg PO Q8HR PRN #30 tab 11/07/19 [Rx] Tacrolimus [Envarsus Xr] 3 mg PO DAILY@89911/07/19 [History] mycophenolate mofetiL [Cellcept] 1,000 mg PO BID@899,209911/07/19 [History] predniSONE 5 mg PO DAILY@89911/07/19 [History] Prochlorperazine [Compazine] 10 mg PO Q8H #30 tab 08/21/20 [Rx] Follow up Appointment(s)/Referral(s): Sahra Hurtado MD [Primary Care Provider] - 1-2 days (Please call tomorrow morning 08/19/2020 to schedule follow up appointment.) Patient Instructions/Handouts: Diabetic Ketoacidosis (DC) Discharge Disposition: HOME SELF-CARE
== END 2020-08-18 18:22 | disposition home or self-care (01) ==
LOC: EC 09:02 → 3SCARD 11:01 → INTOOBSV 11:01 → 3SCARD 19:23 → 2SICU 23:51 → UNDODISIN 08-18 18:22
PROVIDERS: ADMIT Internal Medicine; ATTEND Internal Medicine
DX: E10.10 Type 1 diabetes mellitus with ketoacidosis without coma (principal); N17.9 Acute kidney failure, unspecified; Z94.0 Kidney transplant status; E10.319 Type 1 diabetes mellitus with unspecified diabetic retinopathy without macular edema; E87.5 Hyperkalemia; E10.43 Type 1 diabetes mellitus with diabetic autonomic (poly)neuropathy; K31.84 Gastroparesis; E78.5 Hyperlipidemia, unspecified; F32.9 Major depressive disorder, single episode, unspecified; H54.8 Legal blindness, as defined in USA; K21.9 Gastro-esophageal reflux disease without esophagitis; Z96.41 Presence of insulin pump (external) (internal); Z99.2 Dependence on renal dialysis; Z79.899 Other long term (current) drug therapy; Z79.82 Long term (current) use of aspirin; Z79.4 Long term (current) use of insulin; Z79.52 Long term (current) use of systemic steroids
CPT/HCPCS: 96376; 96361; 96374; 96375; 99291; 36415; 93005; 80051; 80053 ×2; 82565; 82009; 83735; 84100 ×2; 82947; 84520; 85025 ×2; G0378 ×2; J0780; J2405; J7517 ×2; J7512; C9113 ×2

== ENCOUNTER 2020-08-18 21:17 | Inpatient (IN) | payer MEDICARE ==
[2020-08-18 21:27] LABS: Glucose,Whole Blood 393 mg/dL (75-99)
[2020-08-18] MEDS ORDERED: SODIUM CHLORIDE 0.9% 1,000 ML IV STA (21:35)
[2020-08-18] MEDS ORDERED: ONDANSETRON 4 MG/2 ML VIAL IVP STA (21:35)
--- NOTE | 2020-08-18 21:43 | ED ---
Nausea/Vomiting/Diarrhea HPI - General Chief complaint: Nausea/Vomiting/Diarrhea Stated complaint: High sugar,nausea Source: patient, family, RN notes reviewed, old records reviewed Mode of arrival: wheelchair - History of Present Illness Initial comments: 34-year-old male, ill-appearing complaining of nausea and vomiting started around 1700 today. Patient was discharged from the hospital at 1615 today after an admission for a K a. Patient states that at discharge his sugar was over 400 he was still sent home. Patient states that he has had increasing nausea since he's been home and he cannot get his sugars under control. He does have his insulin pump in place which suggests his basal insulin. Patient has a history of IDDM, hypertension, hypercholesterolemia, neuropathy, gastroparesis, hem odialysis on Friday and he is legally blind patient states that he has abdominal pain is 4 out of 10. He states he does get some relief with Zofran and Compazine but he took the Zofran at home today after discharge in it did not resolve his nausea vomiting. Patient denies any fevers, states his left hand is swollen from the IV that was placed. States it is not tender. complaint: nausea, vomiting -: hour(s) (4) Description of Vomiting: watery Severity scale (1-10): 4 Context: other (Discharged today at 1615 after hospitalized with DKA) - Related Data Home Medications Medication Instructions Recorded Confirmed Omeprazole 20 mg PO BID@0900,209908/28/17 08/18/20 Aspirin EC [Ecotrin Low Dose] 81 mg PO DAILY@0900 05/18/18 08/18/20 Insulin Aspart [NovoLOG Flexpen] 2 - 16 unit SQ ACHS 11/02/18 08/18/20 Atorvastatin [Lipitor] 40 mg PO HS@209911/07/19 08/18/20 Calcium Citrate 250 mg PO BID@00,209911/07/19 08/18/20 Cholecalciferol [Vitamin D3 (25 2,000 unit PO HS@209911/07/19 08/18/20 Mcg = 1000 Iu)] Fludrocortisone [Florinef] 0.1 mg PO DAILY@0900 11/07/19 08/18/20 Loratadine [Claritin] 10 mg PO DAILY@0900 PRN 11/07/19 08/18/20 Midodrine HCl 10 mg PO TID@0900,1400,2100 11/07/19 08/18/20 Tacrolimus [Envarsus Xr] 3 mg PO DAILY@00 11/07/19 08/18/20 mycophenolate mofetiL [Cellcept] 1,000 mg PO BID@0900,2100 11/07/19 08/18/20 predniSONE 5 mg PO DAILY@0900 11/07/19 08/18/20 Previous Rx's Medication Instructions Recorded Ondansetron Odt [Zofran ODT] 4 mg PO Q8HR PRN #30 tab 11/07/19 Allergies Allergy/AdvReac Type Severity Reaction Status Date / Time metoclopramide [From Reglan] Allergy ITCHY Verified 08/18/20 21:42 FEELING " Review of Systems ROS Statement: Those systems with pertinent positive or pertinent negative responses have been documented in the HPI. ROS Other: All systems not noted in ROS Statement are negative. Past Medical History Past Medical History: Diabetes Mellitus, Eye Disorder, GERD/Reflux, Hyperlipidemia, Hypertension, Renal Disease Additional Past Medical History / Comment(s): past DKA, neuropathy bilateral feet, diabetic nephropathy/ESRD with hemodialysis M/W/F pt planning establishing at [facility] for possible kidney transplant, diabetic retinopathy/bleeds bilaterally-pt legally blind, gastroparesis with botox treatment, esophagitis, hiatal hernia, History of Any Multi-Drug Resistant Organisms: None Reported Past Surgical History: Hernia Repair Additional Past Surgical History / Comment(s): Vitrectomy right eye, 04/2017 bilateral laser eye surgery for retinal bleeds unsuccessful, eye injections, EGD, colonoscopy, dialysis cath placed rt upper chest on 12-03-17, graft rt forearm 10/06/18 for dialysis, L inguinal hernia repair, kidney transplant- left Past Anesthesia/Blood Transfusion Reactions: Postoperative Nausea & Vomiting (PONV) Additional Past Anesthesia/Blood Transfusion Reaction / Comment(s): clausterphobia, Pt has received multiple transfusions. Past Psychological History: Depression Smoking Status: Never smoker Past Alcohol Use History: None Reported Past Drug Use History: None Reported - Past Family History Father Family Medical History: No Reported History Additional Family Medical History / Comment(s): Father is healthy Mother Family Medical History: No Reported History Additional Family Medical History / Comment(s): Mother is healthy. General Exam Limitations: physical limitation (Patient is legally blind) General appearance: alert, in no apparent distress Head exam: Present: atraumatic, normocephalic, normal inspection Eye exam: Present: normal appearance, PERRL, EOMI. Absent: scleral icterus, conjunctival injection, nystagmus, periorbital swelling, periorbital tenderness ENT exam: Present: normal exam, normal oropharynx, mucous membranes moist Neck exam: Present: normal inspection, full ROM. Absent: tenderness, meningismus, lymphadenopathy, thyromegaly Respiratory exam: Present: normal lung sounds bilaterally. Absent: respiratory distress, wheezes, rales, rhonchi, stridor, chest wall tenderness, accessory muscle use, decreased breath sounds, prolonged expiratory Cardiovascular Exam: Present: normal rhythm, tachycardia, normal heart sounds. Absent: JVD GI/Abdominal exam: Present: soft, normal bowel sounds, other (Renal transplant left of midline). Absent: distended, tenderness, guarding, rebound, rigid Extremities exam: Present: normal inspection, full ROM, normal capillary refill. Absent: tenderness, pedal edema, joint swelling, calf tenderness Left Hand Wrist exam: Present: full ROM, swelling. Absent: tenderness, laceration, ecchymosis, deformity, crepitus, erythema Vascular: Present: normal capillary refill, radial pulse. Absent: vascular compromise Back exam: Present: normal inspection, full ROM. Absent: tenderness, CVA tenderness (R), CVA tenderness (L), muscle spasm, paraspinal tenderness, vertebral tenderness Neurological exam: Present: alert, oriented X3, CN II-XII intact Psychiatric exam: Present: normal affect, normal mood. Absent: agitated, anxious, flat affect, manic Skin exam: Present: warm, dry, intact, normal color. Absent: rash, cyanosis, diaphoretic, erythema, petechiae, pallor, mottled Course Vital Signs 08/18/20 08/18/20 21:19 23:08 Temperature 98 F Pulse Rate 112 H 109 H Respiratory 17 20 Rate Blood Pressure 147/88 156/95 O2 Sat by Pulse 97 99 Oximetry Medical Decision Making - Medical Decision Making WBC is 11.7, glucose is 341, sodium is 137, potassium is 4.6, carbon dioxide 13 ,chloride is 102, anion gap is 22. UA shows 4+ glucose and 3+ ketones, acetone positive. Patient denies abdominal pain or bloating. KUB x-ray done on August 16 showed no sign of intestinal obstruction or pneumoperitoneum. Patient is afebrile, alert and oriented 4, skins pink warm and dry, mucous membranes moist. There is no lymphadenopathy or weakness, chest is clear to auscultation oxygen saturation is 97% on room air abdomen is soft and flat, no guarding. There is no CVA tenderness. Patient will be admitted to the hospital for intractable nausea and vomiting. Case discussed with . - Lab Data Result diagrams: 08/18/20 21:35 08/18/20 21:35 Lab Results 08/18/20 08/18/20 08/18/20 Range/Units 21:26 21:35 21:35 WBC 11.7 H (3.8-10.6) k/uL RBC 5.54 (4.30-5.90) m/uL Hgb 16.6 (13.0-17.5) gm/dL Hct 48.8 (39.0-53.0) % MCV 88.1 (80.0-100.0) fL MCH 30.0 (25.0-35.0) pg MCHC 34.0 (31.0-37.0) g/dL RDW 13.8 (11.5-15.5) % Plt Count 147 L (150-450) k/uL MPV 8.5 Neutrophils % 93 % Lymphocytes % 3 % Monocytes % 2 % Eosinophils % 1 % Basophils % 0 % Neutrophils # 10.9 H (1.3-7.7) k/uL Lymphocytes # 0.4 L (1.0-4.8) k/uL Monocytes # 0.3 (0-1.0) k/uL Eosinophils # 0.1 (0-0.7) k/uL Basophils # 0.0 (0-0.2) k/uL Sodium 137 (137-145) mmol/L Potassium 4.6 (3.5-5.1) mmol/L Chloride 102 (98-107) mmol/L Carbon Dioxide 13 L (22-30) mmol/L Anion Gap 22 mmol/L BUN 18 (9-20) mg/dL Creatinine 1.35 H (0.66-1.25) mg/dL Est GFR (CKD-EPI)AfAm 79 (>60 ml/min/1.73 sqM) Est GFR (CKD-EPI)NonAf 68 (>60 ml/min/1.73 sqM) Glucose 341 H (74-99) mg/dL POC Glucose (mg/dL) 393 H (75-99) mg/dL POC Glu Truck Striker ID Abran Johnson Calcium 9.6 (8.4-10.2) mg/dL Total Bilirubin 1.1 (0.2-1.3) mg/dL AST 28 (17-59) U/L ALT 33 (4-49) U/L Alkaline Phosphatase 115 (38-126) U/L Total Protein 7.2 (6.3-8.2) g/dL Albumin 4.7 (3.5-5.0) g/dL Amylase 49 (30-110) U/L Lipase 43 (23-300) U/L Urine Color Urine Appearance (Clear) Urine pH (5.0-8.0) Ur Specific [place] (1.001-1.035) Urine Protein (Negative) Urine Glucose (UA) (Negative) Urine Ketones (Negative) Urine Blood (Negative) Urine Nitrite (Negative) Urine Bilirubin (Negative) Urine Urobilinogen (<2.0) mg/dL Ur Leukocyte Esterase (Negative) Acetone, Qual Positive (Negative) 08/18/20 08/18/20 Range/Units 22:00 23:01 WBC (3.8-10.6) k/uL RBC (4.30-5.90) m/uL Hgb (13.0-17.5) gm/dL Hct (39.0-53.0) % MCV (80.0-100.0) fL MCH (25.0-35.0) pg MCHC (31.0-37.0) g/dL RDW (11.5-15.5) % Plt Count (150-450) k/uL MPV Neutrophils % % Lymphocytes % % Monocytes % % Eosinophils % % Basophils % % Neutrophils # (1.3-7.7) k/uL Lymphocytes # (1.0-4.8) k/uL Monocytes # (0-1.0) k/uL Eosinophils # (0-0.7) k/uL Basophils # (0-0.2) k/uL Sodium (137-145) mmol/L Potassium (3.5-5.1) mmol/L Chloride (98-107) mmol/L Carbon Dioxide (22-30) mmol/L Anion Gap mmol/L BUN (9-20) mg/dL Creatinine (0.66-1.25) mg/dL Est GFR (CKD-EPI)AfAm (>60 ml/min/1.73 sqM) Est GFR (CKD-EPI)NonAf (>60 ml/min/1.73 sqM) Glucose (74-99) mg/dL POC Glucose (mg/dL) 227 H (75-99) mg/dL POC Glu Truck Striker ID Joseline Quintero Calcium (8.4-10.2) mg/dL Total Bilirubin (0.2-1.3) mg/dL AST (17-59) U/L ALT (4-49) U/L Alkaline Phosphatase (38-126) U/L Total Protein (6.3-8.2) g/dL Albumin (3.5-5.0) g/dL Amylase (30-110) U/L Lipase (23-300) U/L Urine Color Light Yellow Urine Appearance Clear (Clear) Urine pH 5.0 (5.0-8.0) Ur Specific [place] 1.016 (1.001-1.035) Urine Protein Negative (Negative) Urine Glucose (UA) 4+ H (Negative) Urine Ketones 3+ H (Negative) Urine Blood Negative (Negative) Urine Nitrite Negative (Negative) Urine Bilirubin Negative (Negative) Urine Urobilinogen <2.0 (<2.0) mg/dL Ur Leukocyte Esterase Negative (Negative) Acetone, Qual (Negative) - EKG Data EKG shows normal: sinus rhythm (Sinus tachycardia, educated rate of 104, MA interval of 0.136, QRS of 0.82, QTC of 0.439) Disposition Clinical Impression: Nausea & vomiting Disposition: ADMITTED IP TO THIS HOSP Condition: Fair Is patient prescribed a controlled substance at d/c from ED?: No Referrals: Sahra Hurtado MD [Primary Care Provider] - 1-2 days Decision Date: 08/18/20 Decision Time: 23:37
[2020-08-18 22:13] LABS: Basophils % (A) 0 %; Eosinophils # (A) 0.1 k/uL (0-0.7); Eosinophils % (A) 1 %; HCT 48.8 % (39.0-53.0); HGB 16.6 gm/dL (13.0-17.5); Lymphocytes # (A) 0.4 k/uL (1.0-4.8); Lymphocytes % (A) 3 %; MCV 88.1 fL (80.0-100.0); Mean Platelet Volume 8.5; Monocytes # (A) 0.3 k/uL (0-1.0); Monocytes % (A) 2 %; Neutrophils # (A) 10.9 k/uL (1.3-7.7); Neutrophils % (A) 93 %; Platelet Count 147 k/uL (150-450); RBC 5.54 m/uL (4.30-5.90); RDW 13.8 % (11.5-15.5); WBC 11.7 k/uL (3.8-10.6)
[2020-08-18 22:27] LABS: ALT 33 U/L (4-49); AST 28 U/L (17-59); African American GFR (CKD) 79 (>60 ml/min/1.73 sqM); Albumin 4.7 g/dL (3.5-5.0); Alkaline Phosphatase 115 U/L (38-126); Amylase 49 U/L (30-110); Anion Gap 22 mmol/L; Blood Urea Nitrogen 18 mg/dL (9-20); Calcium 9.6 mg/dL (8.4-10.2); Carbon Dioxide 13 mmol/L (22-30); Chloride 102 mmol/L (98-107); Glucose 341 mg/dL (74-99); Lipase 43 U/L (23-300); Non-African American GFR(CKD) 68 (>60 ml/min/1.73 sqM); Potassium 4.6 mmol/L (3.5-5.1); Sodium 137 mmol/L (137-145); Total Bilirubin 1.1 mg/dL (0.2-1.3); Total Protein 7.2 g/dL (6.3-8.2)
[2020-08-18 22:30] LABS: Appearance,Urine Clear (Clear); Bilirubin,Urine Negative (Negative); Blood,Urine Negative (Negative); Color,Urine Light Yellow; Glucose,Urine (UA) 4+ (Negative); Leukocyte Esterase,Urine Negative (Negative); Nitrite,Urine Negative (Negative); Protein,Urine Negative (Negative); Specific Gravity,Urine 1.016 (1.001-1.035); Urobilinogen,Urine <2.0 mg/dL (<2.0)
[2020-08-18 22:46] LABS: Ketones,Urine 3+ (Negative)
[2020-08-18 23:03] LABS: Glucose,Whole Blood 227 mg/dL (75-99)
[2020-08-18] MEDS ORDERED: PROCHLORPERAZINE INJ 10 MG/2 ML VIAL IVP STA (23:11)
[2020-08-18] MEDS ORDERED: SODIUM CHLORIDE 0.9% 1,000 ML IV ONE (23:12)
[2020-08-19] MEDS ORDERED: ACETAMINOPHEN TAB 325 MG TAB PO PRN (00:13)
[2020-08-19] MEDS ORDERED: NALOXONE 0.4 MG/ML 1 ML VIAL IV PRN (00:13)
[2020-08-19] MEDS ORDERED: PROCHLORPERAZINE SUPPOSITORY 25 MG SUPP RECTAL PRN (00:13)
[2020-08-19] MEDS ORDERED: ONDANSETRON 4 MG/2 ML VIAL IVP PRN (00:13)
[2020-08-19 02:30] LABS: Glucose,Whole Blood 103 mg/dL (75-99)
[2020-08-19] MEDS: SODIUM CHLORIDE 0.9% 1,000 ML IV SCH ×3 (02:33→20:43)
[2020-08-19 06:57] LABS: Glucose,Whole Blood 68 mg/dL (75-99)
[2020-08-19 11:13] LABS: Glucose,Whole Blood 76 mg/dL (75-99)
[2020-08-19] MEDS ORDERED: ONDANSETRON ODT 4 MG TAB PO PRN (14:24)
[2020-08-19] MEDS: FLUDROCORTISONE 0.1 MG TAB PO SCH (15:10)
--- NOTE | 2020-08-19 15:56 | P.HPIM ---
History of Present Illness 34-year-old male came in with comments of nausea vomiting was discharged yesterday after he was treated for diabetic ketoacidosis. Patient does have history of diabetic gastroparesis and patient received a Botox injection in the past for this. Patient is not in ketoacidosis at this time. Patient can use to have nausea vomiting patient will be started on diet and slowly advance it. Gastroenterology will be consulted patient does have ALLERGIC reaction to Reglan because of which patient was started on Compazine and Zofran. REVIEW OF SYSTEMS: CONSTITUTIONAL: No fever, no malaise, no fatigue. HEENT: No recent visual problems or hearing problems. Denied any sore throat. CARDIOVASCULAR: No chest pain, orthopnea, PND, no palpitations, no syncope. PULMONARY: No shortness of breath, no cough, no hemoptysis. GASTROINTESTINAL: No diarrhea, no abdominal pain. NEUROLOGICAL: No headaches, no weakness, no numbness. HEMATOLOGICAL: Denies any bleeding or petechiae. GENITOURINARY: Denies any burning micturition, frequency, or urgency. MUSCULOSKELETAL/RHEUMATOLOGICAL: Denies any joint pain, swelling, or any muscle pain. ENDOCRINE: Denies any polyuria or polydipsia. The rest of the 14-point review of systems is negative. PHYSICAL EXAMINATION: GENERAL: The patient is alert and oriented x3, not in any acute distress. Well developed, well nourished. HEENT: Pupils are round and equally reacting to light. EOMI. No scleral icterus. No conjunctival pallor. Normocephalic, atraumatic. No pharyngeal erythema. No thyromegaly. CARDIOVASCULAR: S1 and S2 present. No murmurs, rubs, or gallops. PULMONARY: Chest is clear to auscultation, no wheezing or crackles. ABDOMEN: Soft, nontender, nondistended, normoactive bowel sounds. No palpable organomegaly. MUSCULOSKELETAL: No joint swelling or deformity. EXTREMITIES: No cyanosis, clubbing, or pedal edema. NEUROLOGICAL: Gross neurological examination did not reveal any focal deficits. SKIN: No rashes. Assessment and plan -Diabetic gastroparesis continues to have nausea will start him on diet and advance as tolerated gastroneurology will be consulted continue with present antiemetic medications -History of renal transplant patient is on the tacrolimus reginald mycophenolate and prednisone all of which will be started back. Patient the baseline creatinine is around 1.2 presently 1.3. -Type 1 diabetes mellitus was recently treated for diabetic ketoacidosis -Diabetic peripheral neuropathy -Gastroesophageal reflux disease -Hyperlipidemia -Hypertension -Diabetic retinopathy -Patient is on fludrocortisone possibility of adrenal insufficiency as well and he to verify this with the patient. -DVT prophylaxis ambulation DVT prophylaxis: Past Medical History Past Medical History: Diabetes Mellitus, Eye Disorder, GERD/Reflux, Hyperlipidemia, Hypertension, Renal Disease Additional Past Medical History / Comment(s): past DKA, neuropathy bilateral feet, diabetic nephropathy/ESRD with hemodialysis M/W/F [facility], diabetic retinopathy/bleeds bilaterally-pt legally blind, gastroparesis with botox treatment, esophagitis, hiatal hernia, History of Any Multi-Drug Resistant Organisms: None Reported Past Surgical History: Hernia Repair Additional Past Surgical History / Comment(s): Vitrectomy right eye, 04/2017 bilateral laser eye surgery for retinal bleeds unsuccessful, eye injections, EGD, colonoscopy, dialysis cath placed rt upper chest on 12-03-17, graft rt forearm 10/06/18 for dialysis, L inguinal hernia repair, kidney transplant- left Past Anesthesia/Blood Transfusion Reactions: Postoperative Nausea & Vomiting (PONV) Additional Past Anesthesia/Blood Transfusion Reaction / Comment(s): clausterphobia, Pt has received multiple transfusions. Past Psychological History: Depression Additional Psychological History / Comment(s): . Smoking Status: Never smoker Past Alcohol Use History: None Reported Additional Past Alcohol Use History / Comment(s): Quit smoking 09/2018 started smoking AT AGE 18 smoked 1 ppd Past Drug Use History: None Reported Additional Drug Use History / Comment(s): rare use of cbd oil - Past Family History Father Family Medical History: No Reported History Additional Family Medical History / Comment(s): Father is healthy Mother Family Medical History: No Reported History Additional Family Medical History / Comment(s): Mother is healthy. Medications and Allergies Home Medications Medication Instructions Recorded Confirmed Type Omeprazole 20 mg PO BID@0900,2100 08/28/17 08/18/20 History Aspirin EC [Ecotrin Low Dose] 81 mg PO DAILY@0900 05/18/18 08/18/20 History Insulin Aspart [NovoLOG Flexpen] 2 - 16 unit SQ ACHS 11/02/18 08/18/20 History Atorvastatin [Lipitor] 40 mg PO HS@209911/07/19 08/18/20 History Calcium Citrate 250 mg PO BID@00,209911/07/19 08/18/20 History Cholecalciferol [Vitamin D3 (25 2,000 unit PO HS@209911/07/19 08/18/20 History Mcg = 1000 Iu)] Fludrocortisone [Florinef] 0.1 mg PO DAILY@89911/07/19 08/18/20 History Loratadine [Claritin] 10 mg PO DAILY@0900 PRN 11/07/19 08/18/20 History Midodrine HCl 10 mg PO TID@0900,1400,209911/07/19 08/18/20 History Ondansetron Odt [Zofran ODT] 4 mg PO Q8HR PRN #30 tab 11/07/19 08/18/20 Rx Tacrolimus [Envarsus Xr] 3 mg PO DAILY@89911/07/19 08/18/20 History mycophenolate mofetiL [Cellcept] 1,000 mg PO BID@0900,209911/07/19 08/18/20 History predniSONE 5 mg PO DAILY@89911/07/19 08/18/20 History Allergies Allergy/AdvReac Type Severity Reaction Status Date / Time metoclopramide [From Reglan] Allergy ITCHY Verified 08/18/20 21:42 FEELING " Physical Exam Vitals: Vital Signs Temp Pulse Pulse Resp BP BP Pulse Ox 08/19/20 14:02 98.3 F 112 H 16 135/87 98 08/19/20 07:00 98.4 F 100 14 165/93 97 08/19/20 01:07 98.8 F 107 H 22 177/99 97 08/18/20 23:08 109 H 20 156/95 99 08/18/20 21:19 98 F 112 H 17 147/88 97 Intake and Output 08/19/20 08/19/20 08/19/20 06:59 14:59 22:59 Intake Total 0 Balance 0 Intake: Oral 0 Other: Voiding Method Toilet # Voids 0 Weight 65.317 kg Results CBC & Chem 7: 08/18/20 21:35 08/18/20 21:35 Labs: Abnormal Lab Results - Last 24 Hours (Table) 0708/18/20 08/18/20 Range/Units 21:26 21:35 21:35 WBC 11.7 H (3.8-10.6) k/uL Plt Count 147 L (150-450) k/uL Neutrophils # 10.9 H (1.3-7.7) k/uL Lymphocytes # 0.4 L (1.0-4.8) k/uL Carbon Dioxide 13 L (22-30) mmol/L Creatinine 1.35 H (0.66-1.25) mg/dL Glucose 341 H (74-99) mg/dL POC Glucose (mg/dL) 393 H (75-99) mg/dL Urine Glucose (UA) (Negative) Urine Ketones (Negative) 08/18/20 08/18/20 08/19/20 Range/Units 22:00 23:01 02:28 WBC (3.8-10.6) k/uL Plt Count (150-450) k/uL Neutrophils # (1.3-7.7) k/uL Lymphocytes # (1.0-4.8) k/uL Carbon Dioxide (22-30) mmol/L Creatinine (0.66-1.25) mg/dL Glucose (74-99) mg/dL POC Glucose (mg/dL) 227 H 103 H (75-99) mg/dL Urine Glucose (UA) 4+ H (Negative) Urine Ketones 3+ H (Negative) 08/19/20 Range/Units 06:55 WBC (3.8-10.6) k/uL Plt Count (150-450) k/uL Neutrophils # (1.3-7.7) k/uL Lymphocytes # (1.0-4.8) k/uL Carbon Dioxide (22-30) mmol/L Creatinine (0.66-1.25) mg/dL Glucose (74-99) mg/dL POC Glucose (mg/dL) 68 L (75-99) mg/dL Urine Glucose (UA) (Negative) Urine Ketones (Negative) Thrombosis Risk Factor Assmnt - Choose All That Apply Any of the Below Risk Factors Present?: No
[2020-08-19 17:06] LABS: Glucose,Whole Blood 95 mg/dL (75-99)
[2020-08-19] MEDS: INSULIN ASPART (NovoLOG) 100 UNIT/ML VIAL SQ SCH ×2 (17:25→20:42)
[2020-08-19 20:28] LABS: Glucose,Whole Blood 95 mg/dL (75-99)
[2020-08-19] MEDS: PANTOPRAZOLE 40 MG/10 ML VIAL IVP SCH (20:48)
[2020-08-19] MEDS: CALCIUM CARBONATE 500 MG CHEWABLE PO SCH (20:48)
[2020-08-19] MEDS: ATORVASTATIN 40 MG TAB PO SCH (20:48)
[2020-08-19] MEDS: CHOLECALCIFEROL 25 MCG (1000 IU) TABLET PO SCH (20:49)
[2020-08-19] MEDS: MIDODRINE 5 MG TAB PO SCH (20:49)
[2020-08-19] MEDS ORDERED: NON FORMULARY DRUG (Omeprazole [Omeprazole] 20 MG Capsule.Dr) PO SCH (21:00)
[2020-08-20 06:58] LABS: Glucose,Whole Blood 72 mg/dL (75-99)
[2020-08-20] MEDS: INSULIN ASPART (NovoLOG) 100 UNIT/ML VIAL SQ SCH ×4 (08:02→21:26)
[2020-08-20] MEDS: PANTOPRAZOLE 40 MG/10 ML VIAL IVP SCH ×2 (08:04→21:25)
[2020-08-20] MEDS: CALCIUM CARBONATE 500 MG CHEWABLE PO SCH ×2 (08:04→21:24)
[2020-08-20] MEDS: FLUDROCORTISONE 0.1 MG TAB PO SCH (08:04)
[2020-08-20] MEDS: predniSONE 5 MG TAB PO SCH (08:04)
[2020-08-20] MEDS: ASPIRIN 81 MG PO SCH (08:04)
[2020-08-20] MEDS: MIDODRINE 5 MG TAB PO SCH ×3 (08:06→21:24)
[2020-08-20] MEDS: NON FORMULARY DRUG (Tacrolimus [Envarsus Xr] 1 MG Tab.Er.24h) PO SCH (08:06)
[2020-08-20] MEDS ORDERED: FLUDROCORTISONE 0.1 MG TAB PO SCH (09:00)
[2020-08-20] MEDS ORDERED: LORATADINE 10 MG TAB PO PRN (09:00)
[2020-08-20 11:16] LABS: Glucose,Whole Blood 133 mg/dL (75-99)
--- NOTE | 2020-08-20 12:19 | CONS ---
CONSULTATION DATE OF SERVICE: August 20, 2020. REASON FOR CONSULTATION: Persistent nausea, vomiting. HISTORY OF PRESENT ILLNESS: The patient is a 34-year-old pleasant white male with longstanding history of insulin- dependent diabetes mellitus and diabetic gastroparesis diagnosed a few years ago. He is status post kidney transplant about a year ago. The patient was admitted to the hospital because of intractable nausea, vomiting for the last 4-5 days duration. He came to the ER on Friday, was treated with IV medications and was sent home. The next day he came back with same symptoms and was admitted to the hospital for a day for possible DKA. He was sent home the next day, but within few hours started having severe nausea, vomiting and came back to the emergency room at this time, admitted to the hospital for further management. The patient was diagnosed with diabetic gastroparesis in the past. He underwent EGD with Botox injection of the pyloric sphincter by Dr. Bacon in 2018 and this lasted for 9 months. He had another one done at [facility] in November of 2019 and he did well until recently. This morning he is feeling better. The nausea vomiting has resolved, on a clear liquid diet, tolerating well. He denies any abdominal pain. PAST MEDICAL HISTORY: Significant for longstanding history of diabetes mellitus, hypertension, hyperlipidemia, chronic kidney disease status post kidney transplant 1 year ago, history of multiple hospitalizations. PAST SURGICAL HISTORY: Vitrectomy of the right eye, bilateral laser surgeries for the eyes, EGD several years ago, history of dialysis catheter placement in the past, kidney transplant a year ago, left inguinal hernia repair. MEDICATIONS: Medications at home: Aspirin, insulin, Lipitor, calcium, vitamin D3, Florinef, Claritin, midodrine, Zofran, tacrolimus, CellCept, prednisone. ALLERGIES: To REGLAN. SOCIAL HISTORY: No smoking. No alcohol use. FAMILY HISTORY: Father unremarkable. Mother unremarkable. REVIEW OF SYSTEMS: CARDIOPULMONARY: No chest pain or shortness of breath. : No dysuria or hematuria. MUSCULOSKELETAL: Unremarkable. SKIN unremarkable. ENDOCRINE unremarkable, other than severe IDDM. NEUROLOGICAL: Unremarkable. ENT/VISION: Unremarkable. CONSTITUTIONAL: No recent weight loss. No fever, chills, night sweats. PHYSICAL EXAMINATION: He appears comfortable. VITAL SIGNS: Stable. Blood pressure is 145/91, pulse 87, temperature 98.8. HEENT examination unremarkable. Conjunctivae pink. Sclerae anicteric. Oral cavity no lesions. NECK: No JVD or lymph node enlargement. CHEST was clear to auscultation. HEART: Regular rate and rhythm. ABDOMEN: Soft, it was nontender, nondistended. Bowel sounds are positive. No organomegaly. EXTREMITIES: No pedal edema. NEUROLOGIC: Alert and oriented x3. No focal deficits. LABS: WBC 11.7, hemoglobin 16, platelets 147. BUN 18, creatinine 1.35, CO2 13. Acetone was positive. IMPRESSION: 1. Mild diabetic ketoacidosis resolving. 2. Intractable nausea, vomiting for the last one week duration, most likely related to diabetic gastroparesis. Patient is status post EGD with Botox injection in the last 2 years, first one was in 2018 and the second one in November of 2019 at [facility]. The patient presented with intractable nausea, vomiting for the last 4 days, but appears to be improving currently. 3. History of insulin-dependent diabetes mellitus. 4. History of kidney transplant 1 year ago on immunosuppressive therapy. RECOMMENDATIONS: 1. Continue with symptomatic and supportive care. 2. Antiemetics and Protonix daily. 3. Start him on a clear liquid diet and advance as tolerated. 4. If his symptoms improve on conservative approach, we will continue the same plan. 5. Discussed with the patient the need for EGD and Botox injection of the pyloric sphincter only if he continues to have refractory symptoms. 6. We will follow with you closely. Thank you for this consultation. MMODL / IJN: [id number] /
--- NOTE | 2020-08-20 13:49 | P.PN ---
Subjective 34-year-old male came in with comments of nausea vomiting was discharged yesterday after he was treated for diabetic ketoacidosis. Patient does have history of diabetic gastroparesis and patient received a Botox injection in the past for this. Patient is not in ketoacidosis at this time. Patient can use to have nausea vomiting patient will be started on diet and slowly advance it. Gastroenterology will be consulted patient does have ALLERGIC reaction to Reglan because of which patient was started on Compazine and Zofran. 08/20/2020 Patient's gastroparesis symptoms are better patient was started on clear liquid diet and being advanced to full liquid diet. Patient will continued on IV fluids will monitor 1 more night possibility of discharge tomorrow. If patient has uncontrolled symptoms than the patient will undergo EGD with the Botox injection. Nausea is better. Constitutional: Denied any fatigue denied any fever. Cardio vascular: denied any chest pain, palpitations Gastrointestinal denied any nausea vomiting Pulmonary: Denied any shortness of breath cough Neurologic denied any new focal deficits All inpatient medications were reviewed and appropriate changes in these medications as dictated in the interval history and assessment and plan. PHYSICAL EXAMINATION: GENERAL: The patient is alert and oriented x3, not in any acute distress. Well developed, well nourished. HEENT: Pupils are round and equally reacting to light. EOMI. No scleral icterus. No conjunctival pallor. Normocephalic, atraumatic. No pharyngeal erythema. No thyromegaly. CARDIOVASCULAR: S1 and S2 present. No murmurs, rubs, or gallops. PULMONARY: Chest is clear to auscultation, no wheezing or crackles. ABDOMEN: Soft, nontender, nondistended, normoactive bowel sounds. No palpable organomegaly. MUSCULOSKELETAL: No joint swelling or deformity. EXTREMITIES: No cyanosis, clubbing, or pedal edema. NEUROLOGICAL: Gross neurological examination did not reveal any focal deficits. SKIN: No rashes. Assessment and plan -Diabetic gastroparesis symptoms improving, advance diet as tolerated monitor 1 more night -History of renal transplant patient is on the tacrolimus reginald mycophenolate and prednisone all of which will be started back. Patient the baseline creatinine is around 1.2 presently 1.3. Repeat basic metabolic profile tomorrow. -Type 1 diabetes mellitus was recently treated for diabetic ketoacidosis -Diabetic peripheral neuropathy -Gastroesophageal reflux disease -Hyperlipidemia -Hypertension -Diabetic retinopathy -Patient is on fludrocortisone possibility of adrenal insufficiency as well and he to verify this with the patient. -DVT prophylaxis ambulation DVT prophylaxis: Objective - Vital Signs Vital signs: Vital Signs Temp 98.2 F 08/20/20 07:00 Pulse 87 08/20/20 07:00 Resp 14 08/20/20 07:00 BP 145/91 08/20/20 07:00 Pulse Ox 97 08/20/20 07:00 Intake & Output 08/19/20 08/20/20 08/20/20 18:59 06:59 18:59 Intake Total 0 300 21 Balance 0 300 21 Intake: IV 300 21 Invasive Line 2 21 Sodium Chloride 0.9% 1, 300 000 ml @ 75 mls/hr IV . [id number] [facility] Rx#:[id number] Oral 0 Other: Voiding Method Toilet # Voids 0 2 1 - Labs CBC & Chem 7: 08/18/20 21:35 08/18/20 21:35 Labs: Abnormal Lab Results - Last 24 Hours (Table) 08/20/20 08/20/20 Range/Units 06:53 11:14 POC Glucose (mg/dL) 72 L 133 H (75-99) mg/dL
[2020-08-20 17:15] LABS: Glucose,Whole Blood 151 mg/dL (75-99)
[2020-08-20] MEDS: SODIUM CHLORIDE 0.9% 1,000 ML IV SCH (17:44)
[2020-08-20 20:46] LABS: Glucose,Whole Blood 98 mg/dL (75-99)
[2020-08-20] MEDS: ATORVASTATIN 40 MG TAB PO SCH (21:24)
[2020-08-20] MEDS: CHOLECALCIFEROL 25 MCG (1000 IU) TABLET PO SCH (21:24)
[2020-08-21 01:42] VITALS: PULSE 89
[2020-08-21] MEDS: SODIUM CHLORIDE 0.9% 1,000 ML IV SCH (05:03)
[2020-08-21 05:43] LABS: HCT 42.9 % (39.0-53.0); HGB 14.5 gm/dL (13.0-17.5); MCHC 33.7 g/dL (31.0-37.0); MCV 86.2 fL (80.0-100.0); Mean Platelet Volume 8.5; Platelet Count 111 k/uL (150-450); RBC 4.98 m/uL (4.30-5.90); RDW 13.8 % (11.5-15.5); WBC 4.9 k/uL (3.8-10.6)
[2020-08-21 05:56] LABS: African American GFR (CKD) >90 (>60 ml/min/1.73 sqM); Anion Gap 7 mmol/L; Blood Urea Nitrogen 6 mg/dL (9-20); Calcium 8.8 mg/dL (8.4-10.2); Carbon Dioxide 26 mmol/L (22-30); Chloride 104 mmol/L (98-107); Glucose 132 mg/dL (74-99); Non-African American GFR(CKD) >90 (>60 ml/min/1.73 sqM); Potassium 3.4 mmol/L (3.5-5.1); Sodium 137 mmol/L (137-145)
[2020-08-21 07:09] LABS: Glucose,Whole Blood 123 mg/dL (75-99)
[2020-08-21] MEDS: ASPIRIN 81 MG PO SCH (07:31)
[2020-08-21] MEDS: INSULIN ASPART (NovoLOG) 100 UNIT/ML VIAL SQ SCH (07:31)
[2020-08-21] MEDS: predniSONE 5 MG TAB PO SCH (07:32)
[2020-08-21] MEDS: PANTOPRAZOLE 40 MG/10 ML VIAL IVP SCH (07:32)
[2020-08-21] MEDS: CALCIUM CARBONATE 500 MG CHEWABLE PO SCH (07:33)
[2020-08-21] MEDS: FLUDROCORTISONE 0.1 MG TAB PO SCH (07:33)
[2020-08-21] MEDS: NON FORMULARY DRUG (Tacrolimus [Envarsus Xr] 1 MG Tab.Er.24h) PO SCH (07:34)
[2020-08-21] MEDS: MIDODRINE 5 MG TAB PO SCH (07:37)
[2020-08-21 07:52] VITALS: BP 165/95; RESP 16; TEMP 97.9
--- NOTE | 2020-08-21 09:45 | P.PN ---
Subjective Progress Note Date: 08/21/20 Principal diagnosis: Nausea and vomiting Patient is 34-year-old male who presented to the emergency department with nausea vomiting and abdominal pain. Has a history of diabetic gastroparesis and follows at [facility], last EGD and Botox administration was in November 2019. Today he states he has no nausea or vomiting since Friday. He denies any abdominal pain. He is tolerating a full liquid diet and would like to advance to regular food. Blood sugars have been controlled. Objective - Vital Signs Vital signs: Vital Signs Temp 97.9 F 08/21/20 07:00 Pulse 89 08/21/20 07:00 Resp 16 08/21/20 07:00 BP 165/95 08/21/20 07:00 Pulse Ox 100 08/21/20 07:00 Intake & Output 08/20/20 08/21/20 08/21/20 18:59 06:59 18:59 Intake Total 21 200 Balance 21 200 Intake: IV 21 Invasive Line 2 21 Oral 200 Other: Voiding Method Toilet # Voids 1 2 - Exam General appearance: The patient is alert, oriented, appears in no acute distress. HET: Head is normocephalic and atraumatic. Conjunctiva pink. Sclera anicteric. Neck: Supple without lymphadenopathy. Abdomen: Soft, nontender, nondistended with bowel sounds. No guarding or rigidity. Extremities: Normal skin color and turgor. No pedal edema Skin: No rashes, no jaundice Neurological: No focal deficits. Alert and oriented 3. - Labs CBC & Chem 7: 08/21/20 04:28 08/21/20 04:28 Labs: Abnormal Lab Results - Last 24 Hours (Table) 08/20/20 08/20/20 08/21/20 Range/Units 11:14 17:07 04:28 Plt Count 111 L (150-450) k/uL Potassium (3.5-5.1) mmol/L BUN (9-20) mg/dL Glucose (74-99) mg/dL POC Glucose (mg/dL) 133 H 151 H (75-99) mg/dL 08/21/20 08/21/20 Range/Units 04:28 07:08 Plt Count (150-450) k/uL Potassium 3.4 L (3.5-5.1) mmol/L BUN 6 L (9-20) mg/dL Glucose 132 H (74-99) mg/dL POC Glucose (mg/dL) 123 H (75-99) mg/dL Assessment and Plan (1) Gastroparesis due to DM Narrative/Plan: 44-year-old male patient who presented to the emergency department with complaints of nausea vomiting and abdominal pain has a long history of diabetes mellitus, was admitted with possible diabetic ketoacidosis sent home and returned with continued nausea and vomiting. He has a history of previous Botox administration and [address] Bacon which she states last about 9 months and then he was seen at [facility] where he underwent an EGD and Botox injection in November 2019. Nausea and vomiting have improved. Status: Acute Code(s): E11.43 - TYPE 2 DIABETES W DIABETIC AUTONOMIC (POLY)NEUROPATHY; K31.84 - GASTROPARESIS SNOMED Code(s): 497555987 (2) Nausea & vomiting Status: Acute Code(s): R11.2 - NAUSEA WITH VOMITING, UNSPECIFIED SNOMED Code(s): 45898863 Plan: 1. Will advance to consistent carbohydrate diet 2. Continue antiemetics as needed 3. Patient requesting Compazine to go home with, prescription sent 4. No plans on and postoperative evaluation as patient's symptoms have improved 5. Continue follow-up with [facility] 6. If patient tolerates his lunch, he is cleared for discharge from gastroenterology Thank you for this consultation. Dr. Roxi Arce I agree with the dictator's note, documented as a scribe by Nannette Ash.
[2020-08-21 12:02] LABS: Glucose,Whole Blood 76 mg/dL (75-99)
--- NOTE | 2020-08-21 12:26 | P.DS ---
Providers Date of admission: 08/18/20 23:31 Attending physician: Khari Oswald MD Consults: 08/19/20 14:27 Consult Physician Routine Consulting Provider: Viktoria Arce Consult Reason/Comments: Gastroperesis Do you want consulting provider notified?: Yes Primary care physician: Sahra Hurtado [place] [facility] Course: 34-year-old male came in with comments of nausea vomiting was discharged yesterday after he was treated for diabetic ketoacidosis. Patient does have history of diabetic gastroparesis and patient received a Botox injection in the past for this. Patient is not in ketoacidosis at this time. Patient can use to have nausea vomiting patient will be started on diet and slowly advance it. Gastroenterology will be consulted patient does have ALLERGIC reaction to Reglan because of which patient was started on Compazine and Zofran. 08/20/2020 Patient's gastroparesis symptoms are better patient was started on clear liquid diet and being advanced to full liquid diet. Patient will continued on IV fluids will monitor 1 more night possibility of discharge tomorrow. If patient has uncontrolled symptoms than the patient will undergo EGD with the Botox injection. Nausea is better. 08/21/2020 Patient is clinically doing well if he is able to tolerate soft diet later today patient will be discharged today. Patient was given prescription for Compazine by gastroenterology. PHYSICAL EXAMINATION: GENERAL: The patient is alert and oriented x3, not in any acute distress. Well developed, well nourished. HEENT: Pupils are round and equally reacting to light. EOMI. No scleral icterus. No conjunctival pallor. Normocephalic, atraumatic. No pharyngeal erythema. No thyromegaly. CARDIOVASCULAR: S1 and S2 present. No murmurs, rubs, or gallops. PULMONARY: Chest is clear to auscultation, no wheezing or crackles. ABDOMEN: Soft, nontender, nondistended, normoactive bowel sounds. No palpable organomegaly. MUSCULOSKELETAL: No joint swelling or deformity. EXTREMITIES: No cyanosis, clubbing, or pedal edema. NEUROLOGICAL: Gross neurological examination did not reveal any focal deficits. SKIN: No rashes. Assessment and plan -Diabetic gastroparesis symptoms improving, patient will be discharged today. Can tolerate soft diet today -History of renal transplant patient is on the tacrolimus reginald mycophenolate and prednisone which she will continue. Patient the creatinine from yesterday is 1.3 no repeat labs from today. -Type 1 diabetes mellitus was recently treated for diabetic ketoacidosis -Diabetic peripheral neuropathy -Gastroesophageal reflux disease -Hyperlipidemia -Hypertension -Diabetic retinopathy -Patient is on fludrocortisone possibility of adrenal insufficiency as well and he to verify this with the patient. Patient Condition at Discharge: Fair Plan - Discharge Summary Discharge Rx Participant: No New Discharge Prescriptions: New Prochlorperazine [Compazine] 10 mg PO Q8H #30 tab Continue Omeprazole 20 mg PO BID@0900,2099 Aspirin EC [Ecotrin Low Dose] 81 mg PO DAILY@0900 Insulin Aspart [NovoLOG Flexpen] 2 - 16 unit SQ ACHS Ondansetron Odt [Zofran ODT] 4 mg PO Q8HR PRN #30 tab PRN Reason: Nausea Loratadine [Claritin] 10 mg PO DAILY@0900 PRN PRN Reason: Allergy Symptoms mycophenolate mofetiL [Cellcept] 1,000 mg PO BID@899,2099 predniSONE 5 mg PO DAILY@0900 Tacrolimus [Envarsus Xr] 3 mg PO DAILY@0900 Midodrine HCl 10 mg PO TID@0900,1399,2099 Cholecalciferol [Vitamin D3 (25 Mcg = 1000 Iu)] 2,000 unit PO HS@2099 Fludrocortisone [Florinef] 0.1 mg PO DAILY@0900 Atorvastatin [Lipitor] 40 mg PO HS@2099 Calcium Citrate 250 mg PO BID@899,2099 Discharge Medication List Omeprazole 20 mg PO BID@0900,2100 08/28/17 [History] Aspirin EC [Ecotrin Low Dose] 81 mg PO DAILY@0900 05/18/18 [History] Insulin Aspart [NovoLOG Flexpen] 2 - 16 unit SQ ACHS 11/02/18 [History] Atorvastatin [Lipitor] 40 mg PO HS@209911/07/19 [History] Calcium Citrate 250 mg PO BID@899,209911/07/19 [History] Cholecalciferol [Vitamin D3 (25 Mcg = 1000 Iu)] 2,000 unit PO HS@209911/07/19 [History] Fludrocortisone [Florinef] 0.1 mg PO DAILY@0900 11/07/19 [History] Loratadine [Claritin] 10 mg PO DAILY@0900 PRN 11/07/19 [History] Midodrine HCl 10 mg PO TID@0900,1399,209911/07/19 [History] Ondansetron Odt [Zofran ODT] 4 mg PO Q8HR PRN #30 tab 11/07/19 [Rx] Tacrolimus [Envarsus Xr] 3 mg PO DAILY@89911/07/19 [History] mycophenolate mofetiL [Cellcept] 1,000 mg PO BID@899,209911/07/19 [History] predniSONE 5 mg PO DAILY@89911/07/19 [History] Prochlorperazine [Compazine] 10 mg PO Q8H #30 tab 08/21/20 [Rx] Follow up Appointment(s)/Referral(s): Sahra Hurtado MD [Primary Care Provider] - 3 Days (please call for follow up appointment ) Patient Instructions/Handouts: Diabetic Gastroparesis (GEN) Activity/Diet/Wound Care/Special Instructions: please call [facility] for follow up with GI dr. Thank you Discharge Disposition: HOME SELF-CARE
== END 2020-08-21 13:58 | disposition home or self-care (01) | DRG 74 ==
LOC: EC 21:17 → 6NMEDSUR 23:31 → OBSVTOIN 23:31
PROVIDERS: ADMIT Internal Medicine; ATTEND Internal Medicine
DX: E10.43 Type 1 diabetes mellitus with diabetic autonomic (poly)neuropathy (principal); Z94.0 Kidney transplant status; E10.10 Type 1 diabetes mellitus with ketoacidosis without coma; E10.22 Type 1 diabetes mellitus with diabetic chronic kidney disease; E10.319 Type 1 diabetes mellitus with unspecified diabetic retinopathy without macular edema; E10.42 Type 1 diabetes mellitus with diabetic polyneuropathy; E78.00 Pure hypercholesterolemia, unspecified; E78.5 Hyperlipidemia, unspecified; I12.9 Hypertensive chronic kidney disease with stage 1 through stage 4 chronic kidney disease, or unspecified chronic kidney disease; N18.9 Chronic kidney disease, unspecified; F32.9 Major depressive disorder, single episode, unspecified; H54.8 Legal blindness, as defined in USA; K21.9 Gastro-esophageal reflux disease without esophagitis; K31.84 Gastroparesis; Z79.4 Long term (current) use of insulin; Z79.52 Long term (current) use of systemic steroids; Z79.82 Long term (current) use of aspirin; Z79.899 Other long term (current) drug therapy; Z96.41 Presence of insulin pump (external) (internal); Z99.2 Dependence on renal dialysis; Z88.8 Allergy status to other drugs, medicaments and biological substances; Z87.19 Personal history of other diseases of the digestive system
CPT/HCPCS: 36415; 80048; 80053; 81003; 82009; 82150; 83690; 85025; 85027; 93005

== ENCOUNTER 2020-10-07 10:48 | Inpatient (IN) | payer MEDICARE ==
[2020-10-07] MEDS ORDERED: SODIUM CHLORIDE 0.9% 2,000 ML IV STA (11:07)
[2020-10-07] MEDS ORDERED: ONDANSETRON 4 MG/2 ML VIAL IVP STA (11:07)
[2020-10-07 11:58] LABS: Basophils # (A) 0.1 k/uL (0-0.2); Basophils % (A) 0 %; Eosinophils % (A) 0 %; HCT 46.3 % (39.0-53.0); Lymphocytes # (A) 0.4 k/uL (1.0-4.8); Lymphocytes % (A) 3 %; MCH 29.6 pg (25.0-35.0); MCHC 34.4 g/dL (31.0-37.0); Mean Platelet Volume 9.8; Monocytes # (A) 0.5 k/uL (0-1.0); Monocytes % (A) 4 %; Neutrophils # (A) 13.9 k/uL (1.3-7.7); Neutrophils % (A) 93 %; Poikilocytosis Slight; RBC 5.39 m/uL (4.30-5.90); RDW 14.1 % (11.5-15.5)
[2020-10-07 12:01] LABS: Appearance,Urine Clear (Clear); Bilirubin,Urine Negative (Negative); Blood,Urine Negative (Negative); Color,Urine Yellow; Glucose,Urine (UA) 3+ (Negative); Leukocyte Esterase,Urine Negative (Negative); Nitrite,Urine Negative (Negative); PH, Urine 6.5 (5.0-8.0); Protein,Urine Negative (Negative); Specific Gravity,Urine 1.011 (1.001-1.035); Urobilinogen,Urine <2.0 mg/dL (<2.0)
[2020-10-07 12:03] LABS: ALT 38 U/L (4-49); AST 47 U/L (17-59); African American GFR (CKD) 89 (>60 ml/min/1.73 sqM); Alkaline Phosphatase 112 U/L (38-126); Anion Gap 21 mmol/L; Blood Urea Nitrogen 23 mg/dL (9-20); Calcium 10.2 mg/dL (8.4-10.2); Carbon Dioxide 22 mmol/L (22-30); Chloride 93 mmol/L (98-107); Glucose 186 mg/dL (74-99); Lipase 26 U/L (23-300); Non-African American GFR(CKD) 77 (>60 ml/min/1.73 sqM); Sodium 136 mmol/L (137-145); Total Bilirubin 2.1 mg/dL (0.2-1.3); Total Protein 7.7 g/dL (6.3-8.2)
[2020-10-07 12:05] LABS: Platelet Count 183 k/uL (150-450)
[2020-10-07 12:07] LABS: Potassium 4.6 mmol/L (3.5-5.1)
[2020-10-07 12:25] LABS: Ketones,Urine 2+ (Negative)
[2020-10-07 13:54] LABS: Glucose,Whole Blood 130 mg/dL (75-99)
[2020-10-07] MEDS: INSULIN REGULAR 100 UNIT in SODIUM CHLORIDE 0.9% 100 ML IV SCH (14:44)
[2020-10-07] MEDS: D5-0.45% NACL WITH KCL 20MEQ/L 1,000 ML IV SCH ×2 (14:44→20:23)
[2020-10-07 14:56] LABS: Glucose,Whole Blood 105 mg/dL (75-99)
[2020-10-07 15:35] LABS: Glucose,Whole Blood 112 mg/dL (75-99)
[2020-10-07 16:20] LABS: African American GFR (CKD) >90 (>60 ml/min/1.73 sqM); Anion Gap 11 mmol/L; Blood Urea Nitrogen 19 mg/dL (9-20); Carbon Dioxide 25 mmol/L (22-30); Chloride 100 mmol/L (98-107); Glucose 143 mg/dL (74-99); Non-African American GFR(CKD) >90 (>60 ml/min/1.73 sqM); Phosphorus 3.5 mg/dL (2.5-4.5); Sodium 136 mmol/L (137-145)
[2020-10-07] MEDS: SODIUM CHLORIDE 0.9% 1,000 ML IV SCH ×2 (16:26→20:25)
[2020-10-07 16:36] LABS: Glucose,Whole Blood 185 mg/dL (75-99)
[2020-10-07 17:42] LABS: Glucose,Whole Blood 249 mg/dL (75-99)
[2020-10-07 18:38] LABS: Glucose,Whole Blood 225 mg/dL (75-99)
[2020-10-07 19:32] LABS: Glucose,Whole Blood 223 mg/dL (75-99)
[2020-10-07] MEDS: ONDANSETRON 4 MG/2 ML VIAL IVP PRN (20:18)
[2020-10-07 20:31] LABS: Glucose,Whole Blood 225 mg/dL (75-99)
[2020-10-07 20:36] LABS: African American GFR (CKD) >90 (>60 ml/min/1.73 sqM); Anion Gap 15 mmol/L; Blood Urea Nitrogen 20 mg/dL (9-20); Carbon Dioxide 20 mmol/L (22-30); Chloride 99 mmol/L (98-107); Glucose 250 mg/dL (74-99); Non-African American GFR(CKD) >90 (>60 ml/min/1.73 sqM); Phosphorus 3.4 mg/dL (2.5-4.5); Potassium 4.2 mmol/L (3.5-5.1); Sodium 134 mmol/L (137-145)
[2020-10-07 21:31] LABS: Glucose,Whole Blood 312 mg/dL (75-99)
[2020-10-07 22:46] LABS: Glucose,Whole Blood 249 mg/dL (75-99)
[2020-10-07 23:31] LABS: Glucose,Whole Blood 250 mg/dL (75-99)
--- NOTE | 2020-10-08 00:17 | P.HPIM ---
History of Present Illness H&P Date: 10/07/20 Chief Complaint: Nausea and vomiting Patient is a 34-year-old male with known history of diabetes type 1, diabetic gastroparesis, hypertension, hyperlipidemia, GERD, history of left renal transplant, prior history of DKA, legally blind bilaterally presents to ER with the complaints of nausea and vomiting. Patient states that he is having flareup of his gastroparesis. Denies any complaints of fever or chills. No complaints of abdominal pain. No chest pain or shortness of breath. Denies any headache or dizziness or lightheadedness. Laboratory data showed sodium 136 potassium 4.6 chloride 93 BUN 23 and creatinine 1.22 blood sugar 186 and gap 21 External positive Urinalysis showed 2+ ketones and 3+ glucose WBC 15.0 hemoglobin 16.0 and platelets 183 Past Medical History Past Medical History: Diabetes Mellitus, Eye Disorder, GERD/Reflux, Hyperlipidemia, Hypertension, Renal Disease Additional Past Medical History / Comment(s): past DKA, neuropathy bilateral feet, diabetic nephropathy/ESRD with hemodialysis M/W/F [facility], diabetic retinopathy/bleeds bilaterally-pt legally blind, gastroparesis with botox treatment, esophagitis, hiatal hernia, History of Any Multi-Drug Resistant Organisms: None Reported Past Surgical History: Hernia Repair Additional Past Surgical History / Comment(s): Vitrectomy right eye, 04/2017 bilateral laser eye surgery for retinal bleeds unsuccessful, eye injections, EGD, colonoscopy, dialysis cath placed rt upper chest on 12-03-17, graft rt forearm 10/06/18 for dialysis, L inguinal hernia repair, kidney transplant- left Past Anesthesia/Blood Transfusion Reactions: Postoperative Nausea & Vomiting (PONV) Additional Past Anesthesia/Blood Transfusion Reaction / Comment(s): alejandro miranda, Pt has received multiple transfusions. Past Psychological History: Depression Additional Psychological History / Comment(s): . Smoking Status: Never smoker Past Alcohol Use History: None Reported Additional Past Alcohol Use History / Comment(s): Quit smoking 09/2018 started smoking AT AGE 18 smoked 1 ppd Past Drug Use History: None Reported Additional Drug Use History / Comment(s): rare use of cbd oil - Past Family History Father Family Medical History: No Reported History Additional Family Medical History / Comment(s): Father is healthy Mother Family Medical History: No Reported History Additional Family Medical History / Comment(s): Mother is healthy. Medications and Allergies Home Medications Medication Instructions Recorded Confirmed Type Omeprazole 20 mg PO BID@0900,209908/28/17 10/07/20 History Aspirin EC [Ecotrin Low Dose] 81 mg PO DAILY@0900 05/18/18 10/07/20 History Insulin Aspart [NovoLOG Flexpen] 2 - 16 unit SQ ACHS 11/02/18 10/07/20 History Atorvastatin [Lipitor] 40 mg PO HS@209911/07/19 10/07/20 History Calcium Citrate 250 mg PO BID@0900,209911/07/19 10/07/20 History Cholecalciferol [Vitamin D3 (25 2,000 unit PO HS@209911/07/19 10/07/20 History Mcg = 1000 Iu)] Fludrocortisone [Florinef] 0.1 mg PO DAILY@0911/07/19 10/07/20 History Loratadine [Claritin] 10 mg PO DAILY@0900 PRN 11/07/19 10/07/20 History Midodrine HCl 10 mg PO TID@0900,1400,209911/07/19 10/07/20 History Ondansetron Odt [Zofran ODT] 4 mg PO Q8HR PRN #30 tab 11/07/19 10/07/20 Rx Tacrolimus [Envarsus Xr] 3 mg PO DAILY@89911/07/19 10/07/20 History mycophenolate mofetiL [Cellcept] 1,000 mg PO BID@0900,209911/07/19 10/07/20 History predniSONE 5 mg PO DAILY@89911/07/19 10/07/20 History Prochlorperazine [Compazine] 10 mg PO Q8H #30 tab 08/21/20 10/07/20 Rx Allergies Allergy/AdvReac Type Severity Reaction Status Date / Time metoclopramide [From Reglan] Allergy ITCHY Verified 10/07/20 11:30 FEELING " Physical Exam Vitals: Vital Signs Temp Pulse Pulse Resp BP BP Pulse Ox 10/07/20 23:56 99.0 F 111 H 20 170/78 98 10/07/20 20:00 99.5 F 115 H 20 176/94 97 10/07/20 16:33 109 H 16 138/76 95 10/07/20 15:10 98.9 F 117 H 16 159/96 99 10/07/20 14:34 99.3 F 116 H 18 184/105 100 10/07/20 12:38 105 H 18 148/87 98 10/07/20 10:52 98.4 F 120 H 22 126/78 98 Intake and Output 10/07/20 10/07/20 10/08/20 14:59 22:59 06:59 Intake Total 12.479 Output Total 300 250 Balance -287.521 -250 Intake: Intake, IV Titration 12.479 Amount Insulin Regular 100 unit 12.479 In Sodium Chloride 0.9% 100 ml @ 0.1 UNITS/KG/HR 6.597 mls/hr IV .[id number] [facility] Rx#:[id number] Output: Urine 300 250 Other: # Voids 1 Weight 65.317 kg 65.317 kg Results CBC & Chem 7: 10/07/20 11:16 10/07/20 20:13 Labs: Abnormal Lab Results - Last 24 Hours (Table) 10/07/20 10/07/20 10/07/20 Range/Units 11:16 11:16 11:16 WBC 15.0 H (3.8-10.6) k/uL Neutrophils # 13.9 H (1.3-7.7) k/uL Lymphocytes # 0.4 L (1.0-4.8) k/uL Sodium 136 L (137-145) mmol/L Chloride 93 L (98-107) mmol/L Carbon Dioxide (22-30) mmol/L BUN 23 H (9-20) mg/dL Glucose 186 H (74-99) mg/dL POC Glucose (mg/dL) (75-99) mg/dL Total Bilirubin 2.1 H (0.2-1.3) mg/dL Urine Glucose (UA) 3+ H (Negative) Urine Ketones 2+ H (Negative) 10/07/20 10/07/20 10/07/20 Range/Units 13:48 14:46 15:28 WBC (3.8-10.6) k/uL Neutrophils # (1.3-7.7) k/uL Lymphocytes # (1.0-4.8) k/uL Sodium (137-145) mmol/L Chloride (98-107) mmol/L Carbon Dioxide (22-30) mmol/L BUN (9-20) mg/dL Glucose (74-99) mg/dL POC Glucose (mg/dL) 130 H 105 H 112 H (75-99) mg/dL Total Bilirubin (0.2-1.3) mg/dL Urine Glucose (UA) (Negative) Urine Ketones (Negative) 10/07/20 10/07/20 10/07/20 Range/Units 15:45 16:31 17:39 WBC (3.8-10.6) k/uL Neutrophils # (1.3-7.7) k/uL Lymphocytes # (1.0-4.8) k/uL Sodium 136 L (137-145) mmol/L Chloride (98-107) mmol/L Carbon Dioxide (22-30) mmol/L BUN (9-20) mg/dL Glucose 143 H (74-99) mg/dL POC Glucose (mg/dL) 185 H 249 H (75-99) mg/dL Total Bilirubin (0.2-1.3) mg/dL Urine Glucose (UA) (Negative) Urine Ketones (Negative) 10/07/20 10/07/20 10/07/20 Range/Units 18:36 19:30 20:13 WBC (3.8-10.6) k/uL Neutrophils # (1.3-7.7) k/uL Lymphocytes # (1.0-4.8) k/uL Sodium 134 L (137-145) mmol/L Chloride (98-107) mmol/L Carbon Dioxide 20 L (22-30) mmol/L BUN (9-20) mg/dL Glucose 250 H (74-99) mg/dL POC Glucose (mg/dL) 225 H 223 H (75-99) mg/dL Total Bilirubin (0.2-1.3) mg/dL Urine Glucose (UA) (Negative) Urine Ketones (Negative) 10/07/20 10/07/20 10/07/20 Range/Units 20:29 21:29 22:44 WBC (3.8-10.6) k/uL Neutrophils # (1.3-7.7) k/uL Lymphocytes # (1.0-4.8) k/uL Sodium (137-145) mmol/L Chloride (98-107) mmol/L Carbon Dioxide (22-30) mmol/L BUN (9-20) mg/dL Glucose (74-99) mg/dL POC Glucose (mg/dL) 225 H 312 H 249 H (75-99) mg/dL Total Bilirubin (0.2-1.3) mg/dL Urine Glucose (UA) (Negative) Urine Ketones (Negative) 10/07/20 Range/Units 23:29 WBC (3.8-10.6) k/uL Neutrophils # (1.3-7.7) k/uL Lymphocytes # (1.0-4.8) k/uL Sodium (137-145) mmol/L Chloride (98-107) mmol/L Carbon Dioxide (22-30) mmol/L BUN (9-20) mg/dL Glucose (74-99) mg/dL POC Glucose (mg/dL) 250 H (75-99) mg/dL Total Bilirubin (0.2-1.3) mg/dL Urine Glucose (UA) (Negative) Urine Ketones (Negative) Thrombosis Risk Factor Assmnt - DVT/VTE Prophylaxis DVT/VTE Prophylaxis: Pharmacologic Prophylaxis ordered - Choose All That Apply Any of the Below Risk Factors Present?: No Other Risk Factors: No Other congenital or acquired thrombophilia - If yes, enter type in comment: No Thrombosis Risk Factor Assessment Level: Very Low Risk Assessment and Plan Assessment: Intractable nausea vomiting and abdominal discomfort due to diabetic gastroparesis flareup. Diabetic ketoacidosis Diabetes type 1 History of left renal transplant. Currently on tacrolimus and CellCept and pred nisone. Diabetic gastroparesis with Botox treatment Hiatal hernia History of ESRD with hemodialysis Diabetic retinopathy with bilateral legally blind. Hypertension GI and DVT prophylaxis Plan: Patient will be continued on IV hydration with D5 half-normal saline and insulin drip until anion gap closes. Continue with symptomatic management for nausea and vomiting. Continue with pain management and follow-up closely. Follow-up BMP every 4 hours. On anion gap closes will transition to subcu insulin. Time with Patient: Greater than 30
[2020-10-08 00:32] LABS: Glucose,Whole Blood 286 mg/dL (75-99)
[2020-10-08 01:34] LABS: Glucose,Whole Blood 237 mg/dL (75-99)
[2020-10-08 02:40] LABS: Glucose,Whole Blood 218 mg/dL (75-99)
[2020-10-08 03:31] LABS: Glucose,Whole Blood 201 mg/dL (75-99)
[2020-10-08] MEDS: D5-0.45% NACL WITH KCL 20MEQ/L 1,000 ML IV SCH ×3 (03:34→16:46)
[2020-10-08] MEDS: ONDANSETRON 4 MG/2 ML VIAL IVP PRN ×3 (03:54→22:51)
[2020-10-08 04:32] LABS: Glucose,Whole Blood 197 mg/dL (75-99)
[2020-10-08 05:32] LABS: Glucose,Whole Blood 199 mg/dL (75-99)
[2020-10-08 06:01] LABS: Glucose,Whole Blood 184 mg/dL (75-99)
[2020-10-08 07:06] LABS: Glucose,Whole Blood 181 mg/dL (75-99)
[2020-10-08] MEDS: HEPARIN SODIUM,PORCINE/PF 5,000 UNIT/0.5 ML SYRINGE SQ SCH ×2 (08:09→16:46)
[2020-10-08 08:13] LABS: Glucose,Whole Blood 147 mg/dL (75-99)
[2020-10-08 08:41] LABS: African American GFR (CKD) >90 (>60 ml/min/1.73 sqM); Anion Gap 11 mmol/L; Blood Urea Nitrogen 16 mg/dL (9-20); Calcium 9.3 mg/dL (8.4-10.2); Carbon Dioxide 24 mmol/L (22-30); Chloride 103 mmol/L (98-107); Glucose 193 mg/dL (74-99); Non-African American GFR(CKD) >90 (>60 ml/min/1.73 sqM); Potassium 4.1 mmol/L (3.5-5.1); Sodium 138 mmol/L (137-145)
[2020-10-08 09:04] LABS: Basophils % (A) 0 %; Eosinophils % (A) 0 %; HCT 42.9 % (39.0-53.0); HGB 14.9 gm/dL (13.0-17.5); Lymphocytes # (A) 0.5 k/uL (1.0-4.8); Lymphocytes % (A) 3 %; MCH 29.9 pg (25.0-35.0); MCHC 34.7 g/dL (31.0-37.0); MCV 86.4 fL (80.0-100.0); Mean Platelet Volume 9.8; Monocytes # (A) 0.9 k/uL (0-1.0); Monocytes % (A) 6 %; Neutrophils # (A) 13.4 k/uL (1.3-7.7); Neutrophils % (A) 89 %; Platelet Count 185 k/uL (150-450); RBC 4.97 m/uL (4.30-5.90); RDW 14.2 % (11.5-15.5); WBC 15.1 k/uL (3.8-10.6)
[2020-10-08 09:07] LABS: Glucose,Whole Blood 180 mg/dL (75-99)
[2020-10-08 10:14] LABS: Glucose,Whole Blood 191 mg/dL (75-99)
[2020-10-08 11:05] LABS: Glucose,Whole Blood 218 mg/dL (75-99)
[2020-10-08] MEDS ORDERED: PANTOPRAZOLE 40 MG/10 ML VIAL IVP SCH (12:00)
[2020-10-08 12:12] LABS: Glucose,Whole Blood 212 mg/dL (75-99)
[2020-10-08] MEDS: HYDROmorphone 0.5 MG/0.5 ML SYRINGE IVP PRN (12:26)
[2020-10-08] MEDS: PROCHLORPERAZINE INJ 10 MG/2 ML VIAL IVP PRN ×2 (12:27→19:05)
[2020-10-08 12:34] LABS: ALT 26 U/L (4-49); AST 22 U/L (17-59); African American GFR (CKD) >90 (>60 ml/min/1.73 sqM); Albumin 3.8 g/dL (3.5-5.0); Alkaline Phosphatase 95 U/L (38-126); Anion Gap 12 mmol/L; Blood Urea Nitrogen 15 mg/dL (9-20); Calcium 9.2 mg/dL (8.4-10.2); Carbon Dioxide 24 mmol/L (22-30); Chloride 102 mmol/L (98-107); Glucose 236 mg/dL (74-99); Non-African American GFR(CKD) >90 (>60 ml/min/1.73 sqM); Potassium 4.2 mmol/L (3.5-5.1); Sodium 138 mmol/L (137-145); Total Bilirubin 1.1 mg/dL (0.2-1.3); Total Protein 6.3 g/dL (6.3-8.2)
[2020-10-08 12:59] LABS: Glucose,Whole Blood 207 mg/dL (75-99)
[2020-10-08 13:54] LABS: Glucose,Whole Blood 237 mg/dL (75-99)
[2020-10-08 15:06] LABS: Glucose,Whole Blood 266 mg/dL (75-99)
[2020-10-08 15:59] LABS: Glucose,Whole Blood 279 mg/dL (75-99)
[2020-10-08] MEDS: INSULIN REGULAR 100 UNIT in SODIUM CHLORIDE 0.9% 100 ML IV SCH ×2 (16:53→21:59)
[2020-10-08 17:00] LABS: ALT 24 U/L (4-49); AST 21 U/L (17-59); African American GFR (CKD) >90 (>60 ml/min/1.73 sqM); Albumin 3.6 g/dL (3.5-5.0); Alkaline Phosphatase 89 U/L (38-126); Anion Gap 10 mmol/L; Blood Urea Nitrogen 16 mg/dL (9-20); Calcium 8.9 mg/dL (8.4-10.2); Carbon Dioxide 25 mmol/L (22-30); Chloride 102 mmol/L (98-107); Glucose 290 mg/dL (74-99); Non-African American GFR(CKD) >90 (>60 ml/min/1.73 sqM); Phosphorus 2.9 mg/dL (2.5-4.5); Potassium 4.2 mmol/L (3.5-5.1); Sodium 137 mmol/L (137-145); Total Bilirubin 1.1 mg/dL (0.2-1.3); Total Protein 5.9 g/dL (6.3-8.2)
[2020-10-08 17:04] LABS: Glucose,Whole Blood 266 mg/dL (75-99)
[2020-10-08 18:02] LABS: Glucose,Whole Blood 225 mg/dL (75-99)
[2020-10-08 19:16] LABS: Glucose,Whole Blood 242 mg/dL (75-99)
[2020-10-08 20:15] LABS: Glucose,Whole Blood 243 mg/dL (75-99)
[2020-10-08 20:57] LABS: Glucose,Whole Blood 278 mg/dL (75-99)
[2020-10-08 22:00] LABS: Glucose,Whole Blood 239 mg/dL (75-99)
[2020-10-08 22:57] LABS: Glucose,Whole Blood 212 mg/dL (75-99)
[2020-10-08 23:43] LABS: HCT 39.3 % (39.0-53.0); HGB 13.7 gm/dL (13.0-17.5); MCHC 34.9 g/dL (31.0-37.0); MCV 88.8 fL (80.0-100.0); Mean Platelet Volume 8.8; Platelet Count 125 k/uL (150-450); Poikilocytosis Slight; RBC 4.42 m/uL (4.30-5.90); RDW 14.7 % (11.5-15.5)
[2020-10-08 23:57] LABS: Glucose,Whole Blood 183 mg/dL (75-99)
[2020-10-09 00:13] LABS: African American GFR (CKD) >90 (>60 ml/min/1.73 sqM); Anion Gap 8 mmol/L; Blood Urea Nitrogen 13 mg/dL (9-20); Carbon Dioxide 25 mmol/L (22-30); Chloride 102 mmol/L (98-107); Glucose 212 mg/dL (74-99); Non-African American GFR(CKD) >90 (>60 ml/min/1.73 sqM); Sodium 135 mmol/L (137-145)
[2020-10-09] MEDS: D5-0.45% NACL WITH KCL 20MEQ/L 1,000 ML IV SCH ×4 (00:23→14:45)
[2020-10-09] MEDS: HYDROmorphone 0.5 MG/0.5 ML SYRINGE IVP PRN ×3 (00:31→17:11)
[2020-10-09 00:57] LABS: Glucose,Whole Blood 187 mg/dL (75-99)
[2020-10-09] MEDS: HEPARIN SODIUM,PORCINE/PF 5,000 UNIT/0.5 ML SYRINGE SQ SCH (01:41)
[2020-10-09 02:01] LABS: Glucose,Whole Blood 188 mg/dL (75-99)
[2020-10-09] MEDS: PROCHLORPERAZINE INJ 10 MG/2 ML VIAL IVP PRN ×3 (02:01→21:22)
[2020-10-09 03:00] LABS: Glucose,Whole Blood 165 mg/dL (75-99)
[2020-10-09 03:56] LABS: Glucose,Whole Blood 166 mg/dL (75-99)
[2020-10-09 04:30] LABS: African American GFR (CKD) >90 (>60 ml/min/1.73 sqM); Anion Gap 6 mmol/L; Blood Urea Nitrogen 11 mg/dL (9-20); Carbon Dioxide 25 mmol/L (22-30); Chloride 104 mmol/L (98-107); Glucose 182 mg/dL (74-99); Non-African American GFR(CKD) >90 (>60 ml/min/1.73 sqM); Phosphorus 2.5 mg/dL (2.5-4.5); Potassium 4.1 mmol/L (3.5-5.1); Sodium 135 mmol/L (137-145)
[2020-10-09 04:55] LABS: Glucose,Whole Blood 173 mg/dL (75-99)
[2020-10-09 06:03] LABS: Glucose,Whole Blood 161 mg/dL (75-99)
[2020-10-09 07:02] LABS: Glucose,Whole Blood 153 mg/dL (75-99)
[2020-10-09 08:04] LABS: Glucose,Whole Blood 152 mg/dL (75-99)
[2020-10-09] MEDS: predniSONE 5 MG TAB PO SCH (08:38)
[2020-10-09] MEDS: ONDANSETRON 4 MG/2 ML VIAL IVP PRN ×2 (08:38→17:11)
[2020-10-09] MEDS: PANTOPRAZOLE 40 MG/10 ML VIAL IVP SCH ×2 (08:38→21:22)
[2020-10-09] MEDS: NON FORMULARY DRUG (Tacrolimus [Envarsus Xr] 1 MG Tab.Er.24h) PO SCH (08:38)
[2020-10-09 08:48] LABS: African American GFR (CKD) >90 (>60 ml/min/1.73 sqM); Anion Gap 4 mmol/L; Blood Urea Nitrogen 10 mg/dL (9-20); Carbon Dioxide 29 mmol/L (22-30); Chloride 104 mmol/L (98-107); Glucose 162 mg/dL (74-99); Non-African American GFR(CKD) >90 (>60 ml/min/1.73 sqM); Phosphorus 2.3 mg/dL (2.5-4.5); Potassium 3.9 mmol/L (3.5-5.1); Sodium 137 mmol/L (137-145)
[2020-10-09 08:59] LABS: Glucose,Whole Blood 145 mg/dL (75-99)
[2020-10-09 10:04] LABS: Glucose,Whole Blood 145 mg/dL (75-99)
[2020-10-09 11:13] LABS: Glucose,Whole Blood 153 mg/dL (75-99)
[2020-10-09 11:32] VITALS: BMI 19.1
[2020-10-09 12:02] LABS: Glucose,Whole Blood 173 mg/dL (75-99)
[2020-10-09 12:31] LABS: African American GFR (CKD) >90 (>60 ml/min/1.73 sqM); Anion Gap 6 mmol/L; Blood Urea Nitrogen 8 mg/dL (9-20); Carbon Dioxide 26 mmol/L (22-30); Chloride 104 mmol/L (98-107); Glucose 187 mg/dL (74-99); Non-African American GFR(CKD) >90 (>60 ml/min/1.73 sqM); Phosphorus 2.7 mg/dL (2.5-4.5); Potassium 4.2 mmol/L (3.5-5.1); Sodium 136 mmol/L (137-145)
[2020-10-09] MEDS: INSULIN REGULAR 100 UNIT in SODIUM CHLORIDE 0.9% 100 ML IV SCH ×2 (12:35→20:15)
[2020-10-09 13:14] LABS: Glucose,Whole Blood 211 mg/dL (75-99)
[2020-10-09 14:11] LABS: Glucose,Whole Blood 259 mg/dL (75-99)
[2020-10-09 15:05] LABS: Glucose,Whole Blood 309 mg/dL (75-99)
[2020-10-09 16:08] LABS: Glucose,Whole Blood 335 mg/dL (75-99)
[2020-10-09 16:59] LABS: Glucose,Whole Blood 370 mg/dL (75-99)
[2020-10-09 18:10] LABS: Glucose,Whole Blood 325 mg/dL (75-99)
[2020-10-09 19:03] LABS: Glucose,Whole Blood 286 mg/dL (75-99)
[2020-10-09 20:01] LABS: Glucose,Whole Blood 286 mg/dL (75-99)
[2020-10-09 20:54] LABS: Glucose,Whole Blood 234 mg/dL (75-99)
[2020-10-09 22:03] LABS: Glucose,Whole Blood 212 mg/dL (75-99)
[2020-10-09 22:59] LABS: Glucose,Whole Blood 194 mg/dL (75-99)
[2020-10-09 23:59] LABS: Glucose,Whole Blood 187 mg/dL (75-99)
[2020-10-10] MEDS: HEPARIN SODIUM,PORCINE/PF 5,000 UNIT/0.5 ML SYRINGE SQ SCH ×3 (00:01→17:34)
[2020-10-10] MEDS: HYDROmorphone 0.5 MG/0.5 ML SYRINGE IVP PRN ×2 (00:02→16:40)
[2020-10-10 01:01] LABS: Glucose,Whole Blood 164 mg/dL (75-99)
[2020-10-10] MEDS: D5-0.45% NACL WITH KCL 20MEQ/L 1,000 ML IV SCH ×2 (01:45→09:11)
[2020-10-10 02:00] LABS: Glucose,Whole Blood 145 mg/dL (75-99)
[2020-10-10 03:00] LABS: Glucose,Whole Blood 144 mg/dL (75-99)
[2020-10-10 04:09] LABS: Glucose,Whole Blood 176 mg/dL (75-99)
[2020-10-10 05:18] LABS: Glucose,Whole Blood 229 mg/dL (75-99)
[2020-10-10 06:31] LABS: Glucose,Whole Blood 234 mg/dL (75-99)
[2020-10-10 07:00] LABS: Glucose,Whole Blood 244 mg/dL (75-99)
[2020-10-10 08:04] LABS: Glucose,Whole Blood 232 mg/dL (75-99)
[2020-10-10 08:43] LABS: Basophils % (A) 0 %; Eosinophils # (A) 0.1 k/uL (0-0.7); Eosinophils % (A) 1 %; HCT 42.7 % (39.0-53.0); Hypochromasia Slight; Lymphocytes # (A) 0.5 k/uL (1.0-4.8); Lymphocytes % (A) 6 %; MCH 29.4 pg (25.0-35.0); MCHC 32.9 g/dL (31.0-37.0); MCV 89.4 fL (80.0-100.0); Mean Platelet Volume 8.9; Monocytes # (A) 0.5 k/uL (0-1.0); Monocytes % (A) 6 %; Neutrophils # (A) 7.4 k/uL (1.3-7.7); Neutrophils % (A) 86 %; Platelet Count 135 k/uL (150-450); Poikilocytosis Slight; RBC 4.77 m/uL (4.30-5.90); RDW 15.1 % (11.5-15.5); WBC 8.7 k/uL (3.8-10.6)
[2020-10-10 09:02] LABS: Glucose,Whole Blood 260 mg/dL (75-99)
[2020-10-10 09:03] LABS: African American GFR (CKD) >90 (>60 ml/min/1.73 sqM); Anion Gap 9 mmol/L; Blood Urea Nitrogen 13 mg/dL (9-20); Calcium 8.8 mg/dL (8.4-10.2); Carbon Dioxide 23 mmol/L (22-30); Chloride 100 mmol/L (98-107); Glucose 282 mg/dL (74-99); Non-African American GFR(CKD) >90 (>60 ml/min/1.73 sqM); Potassium 4.6 mmol/L (3.5-5.1); Sodium 132 mmol/L (137-145)
[2020-10-10] MEDS: NON FORMULARY DRUG (Tacrolimus [Envarsus Xr] 1 MG Tab.Er.24h) PO SCH (09:09)
[2020-10-10] MEDS: PANTOPRAZOLE 40 MG/10 ML VIAL IVP SCH (09:09)
[2020-10-10] MEDS: predniSONE 5 MG TAB PO SCH (09:10)
[2020-10-10] MEDS: ONDANSETRON 4 MG/2 ML VIAL IVP PRN (09:10)
[2020-10-10 10:24] LABS: Glucose,Whole Blood 298 mg/dL (75-99)
--- NOTE | 2020-10-10 10:48 | P.PN ---
Subjective Progress Note Date: 10/08/20 Principal diagnosis: Acute diabetic ketoacidosis Intractable nausea vomiting and abdominal discomfort Diabetic gastroparesis Patient is a 34-year-old male with known history of diabetes type 1, diabetic gastroparesis, hypertension, hyperlipidemia, GERD, history of left renal tra nsplant, prior history of DKA, legally blind bilaterally presents to ER with the complaints of nausea and vomiting. Patient states that he is having flareup of his gastroparesis. Denies any complaints of fever or chills. No complaints of abdominal pain. No chest pain or shortness of breath. Denies any headache or dizziness or lightheadedness. Laboratory data showed sodium 136 potassium 4.6 chloride 93 BUN 23 and creatinine 1.22 blood sugar 186 and gap 21 External positive Urinalysis showed 2+ ketones and 3+ glucose WBC 15.0 hemoglobin 16.0 and platelets 183 10/08/2020 Patient is currently lying in the bed elevated to light and oriented. He appears to be in mild distress due to nausea. No complaints of chest pain or shortness of breath. Anion gap is closed. Blood sugar is in 200s. Next and patient is being treated on symptomatic management for nausea and vomiting. Continue with insulin drip and we will change to subcu insulin once patient tolerates oral diet. Patient has been afebrile. No headache or dizziness or lightheadedness. No diarrhea. Next and Current medications reviewed. Objective - Vital Signs Vital signs: Vital Signs Temp 98.1 F 10/08/20 14:00 Pulse 105 H 10/08/20 14:00 Resp 16 10/08/20 14:00 BP 171/89 10/08/20 14:00 Pulse Ox 97 10/08/20 14:00 Intake & Output 10/07/20 10/08/20 10/08/20 18:59 06:59 18:59 Intake Total 2.53 17.896 40.472 Output Total 300 450 303 Balance -297.47 -432.104 -262.528 Weight 65.317 kg 61.4 kg Intake: Intake, IV Titration 2.53 17.896 40.472 Amount Insulin Regular 100 unit 2.53 17.896 40.472 In Sodium Chloride 0.9% 100 ml @ 0.1 UNITS/KG/HR 6.597 mls/hr IV .[id number] [facility] Rx#:[id number] Output: Urine 300 450 300 Other 3 Other: # Voids 1 - Exam PHYSICAL EXAMINATION: Patient is lying in the bed comfortably, no acute distress, awake alert and oriented.. HEENT: Normocephalic. Neck is supple. Pupils reactive. Nostrils clear. Oral cavity is moist. Neck reveals no JVD, carotid bruits, or thyromegaly. CHEST EXAMINATION: Trachea is central. Symmetrical expansion. Lung curran clear to auscultation and percussion. CARDIAC: Normal S1, S2 with no gallops. No murmurs ABDOMEN: Soft. Mild abdominal epigastric tenderness. Bowel sounds normal. No organomegaly. No abdominal bruits. Extremities: reveal no edema. No clubbing or cyanosis Neurologically awake, alert, oriented x3 with well-coordinated movements. No focal deficits noted Skin: No rash or skin lesions. Psychiatric: Coperative. Nonsuicidal Musculoskeletal: No joint swelling or deformity. Normal range of motion. - Labs CBC & Chem 7: 10/10/20 08:24 10/10/20 08:24 Labs: Abnormal Lab Results - Last 24 Hours (Table) 10/07/20 10/07/20 10/07/20 Range/Units 15:28 15:45 16:31 WBC (3.8-10.6) k/uL Neutrophils # (1.3-7.7) k/uL Lymphocytes # (1.0-4.8) k/uL Sodium 136 L (137-145) mmol/L Carbon Dioxide (22-30) mmol/L Glucose 143 H (74-99) mg/dL POC Glucose (mg/dL) 112 H 185 H (75-99) mg/dL 10/07/20 10/07/20 10/07/20 Range/Units 17:39 18:36 19:30 WBC (3.8-10.6) k/uL Neutrophils # (1.3-7.7) k/uL Lymphocytes # (1.0-4.8) k/uL Sodium (137-145) mmol/L Carbon Dioxide (22-30) mmol/L Glucose (74-99) mg/dL POC Glucose (mg/dL) 249 H 225 H 223 H (75-99) mg/dL 10/07/20 10/07/20 10/07/20 Range/Units 20:13 20:29 21:29 WBC (3.8-10.6) k/uL Neutrophils # (1.3-7.7) k/uL Lymphocytes # (1.0-4.8) k/uL Sodium 134 L (137-145) mmol/L Carbon Dioxide 20 L (22-30) mmol/L Glucose 250 H (74-99) mg/dL POC Glucose (mg/dL) 225 H 312 H (75-99) mg/dL 10/07/20 10/07/20 10/08/20 Range/Units 22:44 23:29 00:30 WBC (3.8-10.6) k/uL Neutrophils # (1.3-7.7) k/uL Lymphocytes # (1.0-4.8) k/uL Sodium (137-145) mmol/L Carbon Dioxide (22-30) mmol/L Glucose (74-99) mg/dL POC Glucose (mg/dL) 249 H 250 H 286 H (75-99) mg/dL 10/08/20 10/08/20 10/08/20 Range/Units 01:31 02:37 03:29 WBC (3.8-10.6) k/uL Neutrophils # (1.3-7.7) k/uL Lymphocytes # (1.0-4.8) k/uL Sodium (137-145) mmol/L Carbon Dioxide (22-30) mmol/L Glucose (74-99) mg/dL POC Glucose (mg/dL) 237 H 218 H 201 H (75-99) mg/dL 10/08/20 10/08/20 10/08/20 Range/Units 04:30 05:30 05:59 WBC (3.8-10.6) k/uL Neutrophils # (1.3-7.7) k/uL Lymphocytes # (1.0-4.8) k/uL Sodium (137-145) mmol/L Carbon Dioxide (22-30) mmol/L Glucose (74-99) mg/dL POC Glucose (mg/dL) 197 H 199 H 184 H (75-99) mg/dL 10/08/20 10/08/20 10/08/20 Range/Units 07:05 08:00 08:00 WBC 15.1 H (3.8-10.6) k/uL Neutrophils # 13.4 H (1.3-7.7) k/uL Lymphocytes # 0.5 L (1.0-4.8) k/uL Sodium (137-145) mmol/L Carbon Dioxide (22-30) mmol/L Glucose 193 H (74-99) mg/dL POC Glucose (mg/dL) 181 H (75-99) mg/dL 10/08/20 10/08/20 10/08/20 Range/Units 08:03 09:06 10:11 WBC (3.8-10.6) k/uL Neutrophils # (1.3-7.7) k/uL Lymphocytes # (1.0-4.8) k/uL Sodium (137-145) mmol/L Carbon Dioxide (22-30) mmol/L Glucose (74-99) mg/dL POC Glucose (mg/dL) 147 H 180 H 191 H (75-99) mg/dL 10/08/20 10/08/20 10/08/20 Range/Units 11:04 11:48 12:11 WBC (3.8-10.6) k/uL Neutrophils # (1.3-7.7) k/uL Lymphocytes # (1.0-4.8) k/uL Sodium (137-145) mmol/L Carbon Dioxide (22-30) mmol/L Glucose 236 H (74-99) mg/dL POC Glucose (mg/dL) 218 H 212 H (75-99) mg/dL 10/08/20 10/08/20 10/08/20 Range/Units 12:57 13:52 15:04 WBC (3.8-10.6) k/uL Neutrophils # (1.3-7.7) k/uL Lymphocytes # (1.0-4.8) k/uL Sodium (137-145) mmol/L Carbon Dioxide (22-30) mmol/L Glucose (74-99) mg/dL POC Glucose (mg/dL) 207 H 237 H 266 H (75-99) mg/dL Assessment and Plan Assessment: Intractable nausea vomiting and abdominal discomfort due to diabetic gastroparesis flareup. Diabetic ketoacidosis Diabetes type 1 History of left renal transplant. Currently on tacrolimus and CellCept and prednisone. Diabetic gastroparesis with Botox treatment Hiatal hernia History of ESRD with hemodialysis Diabetic retinopathy with bilateral legally blind. Hypertension GI and DVT prophylaxis Plan: Patient will be continued on IV hydration with D5 half-normal saline and insulin drip. Patient is still nauseated and not tolerating oral diet. Replace electrolyte lites. Continue with symptomatic management for nausea and vomiting. Continue with pain management and follow-up closely. Time with Patient: Greater than 30
--- NOTE | 2020-10-10 10:51 | P.PN ---
Subjective Progress Note Date: 10/09/20 Principal diagnosis: Acute diabetic ketoacidosis Intractable nausea vomiting and abdominal discomfort Diabetic gastroparesis Patient is a 34-year-old male with known history of diabetes type 1, diabetic gastroparesis, hypertension, hyperlipidemia, GERD, history of left renal tra nsplant, prior history of DKA, legally blind bilaterally presents to ER with the complaints of nausea and vomiting. Patient states that he is having flareup of his gastroparesis. Denies any complaints of fever or chills. No complaints of abdominal pain. No chest pain or shortness of breath. Denies any headache or dizziness or lightheadedness. Laboratory data showed sodium 136 potassium 4.6 chloride 93 BUN 23 and creatinine 1.22 blood sugar 186 and gap 21 External positive Urinalysis showed 2+ ketones and 3+ glucose WBC 15.0 hemoglobin 16.0 and platelets 183 10/08/2020 Patient is currently lying in the bed elevated to light and oriented. He appears to be in mild distress due to nausea. No complaints of chest pain or shortness of breath. Anion gap is closed. Blood sugar is in 200s. Next and patient is being treated on symptomatic management for nausea and vomiting. Continue with insulin drip and we will change to subcu insulin once patient tolerates oral diet. Patient has been afebrile. No headache or dizziness or lightheadedness. No diarrhea. 10/09/2020 Patient is still having nausea and episodes of vomiting. Did have some dark- colored vomitus this morning. Continue with Protonix IV. Patient is being carried on insulin drip. Not tolerating any oral diet at this time. I did discuss with [facility] transfer team due to intractable nausea and previous history of Botox injections at [facility]. GI consultation is not available at this time as well. Transfer team did not accept the patient for transfer and was told Botox injection is not an inpatient procedure and wants to follow with his measurement advisor as an outpatient. Laboratory data reviewed. Current medications reviewed. Objective - Vital Signs Vital signs: Vital Signs Temp 98 F 10/09/20 16:00 Pulse 119 H 10/09/20 16:00 Resp 16 10/09/20 16:00 BP 144/76 10/09/20 16:00 Pulse Ox 97 10/09/20 16:00 Intake & Output 10/08/20 10/09/2021 18:59 06:59 18:59 Intake Total 46.515 71.494 32.479 Output Total 252 085 6834 Balance -256.485 -578.506 -1242.521 Weight 62.4 kg 62.4 kg Intake: Intake, IV Titration 46.515 71.494 32.479 Amount Insulin Regular 100 unit 46.515 71.494 32.479 In Sodium Chloride 0.9% 100 ml @ 0.1 UNITS/KG/HR 6.597 mls/hr IV .[id number] [facility] Rx#:[id number] Oral 0 Output: Urine 300 1275 Emesis 650 Other 3 Other: Voiding Method Toilet Toilet Urinal Urinal - Exam PHYSICAL EXAMINATION: Patient is lying in the bed comfortably, no acute distress, awake alert and oriented.. HEENT: Normocephalic. Neck is supple. Pupils reactive. Nostrils clear. Oral cavity is moist. Neck reveals no JVD, carotid bruits, or thyromegaly. CHEST EXAMINATION: Trachea is central. Symmetrical expansion. Lung curran clear to auscultation and percussion. CARDIAC: Normal S1, S2 with no gallops. No murmurs ABDOMEN: Soft. Mild abdominal epigastric tenderness. Bowel sounds normal. No organomegaly. No abdominal bruits. Extremities: reveal no edema. No clubbing or cyanosis Neurologically awake, alert, oriented x3 with well-coordinated movements. No focal deficits noted Skin: No rash or skin lesions. Psychiatric: Coperative. Nonsuicidal Musculoskeletal: No joint swelling or deformity. Normal range of motion. - Labs CBC & Chem 7: 10/10/20 08:24 10/10/20 08:24 Labs: Abnormal Lab Results - Last 24 Hours (Table) 10/08/20 10/08/20 10/08/20 Range/Units 16:12 16:57 18:01 WBC (3.8-10.6) k/uL Plt Count (150-450) k/uL Sodium (137-145) mmol/L BUN (9-20) mg/dL Glucose 290 H (74-99) mg/dL POC Glucose (mg/dL) 266 H 225 H (75-99) mg/dL Phosphorus (2.5-4.5) mg/dL Total Protein 5.9 L (6.3-8.2) g/dL 10/08/20 10/08/20 10/08/20 Range/Units 19:04 20:13 20:55 WBC (3.8-10.6) k/uL Plt Count (150-450) k/uL Sodium (137-145) mmol/L BUN (9-20) mg/dL Glucose (74-99) mg/dL POC Glucose (mg/dL) 242 H 243 H 278 H (75-99) mg/dL Phosphorus (2.5-4.5) mg/dL Total Protein (6.3-8.2) g/dL 10/08/20 10/08/20 10/08/20 Range/Units 21:58 22:56 23:24 WBC 14.0 H (3.8-10.6) k/uL Plt Count 125 L (150-450) k/uL Sodium (137-145) mmol/L BUN (9-20) mg/dL Glucose (74-99) mg/dL POC Glucose (mg/dL) 239 H 212 H (75-99) mg/dL Phosphorus (2.5-4.5) mg/dL Total Protein (6.3-8.2) g/dL 10/08/20 10/08/20 10/08/20 Range/Units 23:24 23:24 23:55 WBC (3.8-10.6) k/uL Plt Count (150-450) k/uL Sodium 135 L (137-145) mmol/L BUN (9-20) mg/dL Glucose 212 H (74-99) mg/dL POC Glucose (mg/dL) 183 H (75-99) mg/dL Phosphorus 2.2 L (2.5-4.5) mg/dL Total Protein (6.3-8.2) g/dL 10/09/20 10/09/20 10/09/20 Range/Units 00:55 01:58 02:59 WBC (3.8-10.6) k/uL Plt Count (150-450) k/uL Sodium (137-145) mmol/L BUN (9-20) mg/dL Glucose (74-99) mg/dL POC Glucose (mg/dL) 187 H 188 H 165 H (75-99) mg/dL Phosphorus (2.5-4.5) mg/dL Total Protein (6.3-8.2) g/dL 10/09/20 10/09/20 10/09/20 Range/Units 03:54 04:04 04:54 WBC (3.8-10.6) k/uL Plt Count (150-450) k/uL Sodium 135 L (137-145) mmol/L BUN (9-20) mg/dL Glucose 182 H (74-99) mg/dL POC Glucose (mg/dL) 166 H 173 H (75-99) mg/dL Phosphorus (2.5-4.5) mg/dL Total Protein (6.3-8.2) g/dL 10/09/20 10/09/20 10/09/20 Range/Units 06:00 07:00 07:51 WBC (3.8-10.6) k/uL Plt Count (150-450) k/uL Sodium (137-145) mmol/L BUN (9-20) mg/dL Glucose 162 H (74-99) mg/dL POC Glucose (mg/dL) 161 H 153 H (75-99) mg/dL Phosphorus 2.3 L (2.5-4.5) mg/dL Total Protein (6.3-8.2) g/dL 10/09/20 10/09/20 10/09/20 Range/Units 08:02 08:58 10:03 WBC (3.8-10.6) k/uL Plt Count (150-450) k/uL Sodium (137-145) mmol/L BUN (9-20) mg/dL Glucose (74-99) mg/dL POC Glucose (mg/dL) 152 H 145 H 145 H (75-99) mg/dL Phosphorus (2.5-4.5) mg/dL Total Protein (6.3-8.2) g/dL 10/09/20 10/09/20 10/09/20 Range/Units 11:11 12:00 12:01 WBC (3.8-10.6) k/uL Plt Count (150-450) k/uL Sodium 136 L (137-145) mmol/L BUN 8 L (9-20) mg/dL Glucose 187 H (74-99) mg/dL POC Glucose (mg/dL) 153 H 173 H (75-99) mg/dL Phosphorus (2.5-4.5) mg/dL Total Protein (6.3-8.2) g/dL 10/09/20 10/09/20 10/09/20 Range/Units 13:13 14:08 15:01 WBC (3.8-10.6) k/uL Plt Count (150-450) k/uL Sodium (137-145) mmol/L BUN (9-20) mg/dL Glucose (74-99) mg/dL POC Glucose (mg/dL) 211 H 259 H 309 H (75-99) mg/dL Phosphorus (2.5-4.5) mg/dL Total Protein (6.3-8.2) g/dL 10/09/20 Range/Units 16:05 WBC (3.8-10.6) k/uL Plt Count (150-450) k/uL Sodium (137-145) mmol/L BUN (9-20) mg/dL Glucose (74-99) mg/dL POC Glucose (mg/dL) 335 H (75-99) mg/dL Phosphorus (2.5-4.5) mg/dL Total Protein (6.3-8.2) g/dL Assessment and Plan Assessment: Intractable nausea vomiting and abdominal discomfort due to diabetic gastroparesis flareup. Diabetic ketoacidosis Diabetes type 1 History of left renal transplant. Currently on tacrolimus and CellCept and prednisone. Diabetic gastroparesis with Botox treatment Hiatal hernia History of ESRD with hemodialysis Diabetic retinopathy with bilateral legally blind. Hypertension GI and DVT prophylaxis Plan: Patient will be continued on IV hydration with D5 half-normal saline and insulin drip. Patient is still nauseated and not tolerating oral diet. Continue to monitor H&H. Continue with oral medications as tolerated. Replace electrolyte lites. Continue with symptomatic management for nausea and vomiting. Continue with pain management and follow-up closely. Discussed with the patient and his at bedside in detail. Time with Patient: Greater than 30
[2020-10-10 11:13] LABS: Glucose,Whole Blood 319 mg/dL (75-99)
[2020-10-10 12:13] LABS: Glucose,Whole Blood 386 mg/dL (75-99)
[2020-10-10] MEDS ORDERED: INSULIN REGULAR 100 UNIT in SODIUM CHLORIDE 0.9% 100 ML IV SCH (12:45)
[2020-10-10 13:07] LABS: Glucose,Whole Blood 367 mg/dL (75-99)
[2020-10-10 14:05] LABS: Glucose,Whole Blood 382 mg/dL (75-99)
[2020-10-10 16:07] LABS: Glucose,Whole Blood 411 mg/dL (75-99)
[2020-10-10 17:13] LABS: Glucose,Whole Blood 335 mg/dL (75-99)
[2020-10-10] MEDS: INSULIN ASPART (NovoLOG) 100 UNIT/ML VIAL SQ SCH (17:34)
[2020-10-10 18:23] LABS: Glucose,Whole Blood 275 mg/dL (75-99)
[2020-10-10 20:00] LABS: Glucose,Whole Blood 173 mg/dL (75-99)
[2020-10-10] MEDS: PANTOPRAZOLE 40 MG TABLET PO SCH (20:30)
[2020-10-10 22:01] LABS: Glucose,Whole Blood 207 mg/dL (75-99)
[2020-10-10 23:56] LABS: Glucose,Whole Blood 135 mg/dL (75-99)
[2020-10-11] MEDS: HEPARIN SODIUM,PORCINE/PF 5,000 UNIT/0.5 ML SYRINGE SQ SCH ×2 (00:11→08:52)
[2020-10-11] MEDS: ONDANSETRON 4 MG/2 ML VIAL IVP PRN (00:11)
[2020-10-11 01:56] LABS: Glucose,Whole Blood 216 mg/dL (75-99)
[2020-10-11 03:56] LABS: Glucose,Whole Blood 192 mg/dL (75-99)
[2020-10-11 04:04] VITALS: RESP 16
[2020-10-11 06:00] LABS: Glucose,Whole Blood 174 mg/dL (75-99)
[2020-10-11 08:14] LABS: Glucose,Whole Blood 186 mg/dL (75-99)
[2020-10-11] MEDS: INSULIN ASPART (NovoLOG) 100 UNIT/ML VIAL SQ SCH ×2 (08:22→12:47)
[2020-10-11] MEDS: predniSONE 5 MG TAB PO SCH (08:53)
[2020-10-11] MEDS: PANTOPRAZOLE 40 MG TABLET PO SCH (08:53)
[2020-10-11] MEDS: NON FORMULARY DRUG (Tacrolimus [Envarsus Xr] 1 MG Tab.Er.24h) PO SCH (08:54)
--- NOTE | 2020-10-11 10:01 | P.PN ---
Subjective Progress Note Date: 10/10/20 Principal diagnosis: Acute diabetic ketoacidosis Intractable nausea vomiting and abdominal discomfort Diabetic gastroparesis Patient is a 34-year-old male with known history of diabetes type 1, diabetic gastroparesis, hypertension, hyperlipidemia, GERD, history of left renal tra nsplant, prior history of DKA, legally blind bilaterally presents to ER with the complaints of nausea and vomiting. Patient states that he is having flareup of his gastroparesis. Denies any complaints of fever or chills. No complaints of abdominal pain. No chest pain or shortness of breath. Denies any headache or dizziness or lightheadedness. Laboratory data showed sodium 136 potassium 4.6 chloride 93 BUN 23 and creatinine 1.22 blood sugar 186 and gap 21 External positive Urinalysis showed 2+ ketones and 3+ glucose WBC 15.0 hemoglobin 16.0 and platelets 183 10/08/2020 Patient is currently lying in the bed elevated to light and oriented. He appears to be in mild distress due to nausea. No complaints of chest pain or shortness of breath. Anion gap is closed. Blood sugar is in 200s. Next and patient is being treated on symptomatic management for nausea and vomiting. Continue with insulin drip and we will change to subcu insulin once patient tolerates oral diet. Patient has been afebrile. No headache or dizziness or lightheadedness. No diarrhea. 10/09/2020 Patient is still having nausea and episodes of vomiting. Did have some dark- colored vomitus this morning. Continue with Protonix IV. Patient is being carried on insulin drip. Not tolerating any oral diet at this time. I did discuss with [facility] transfer team due to intractable nausea and previous history of Botox injections at [facility]. GI consultation is not available at this time as well. 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 Laboratory data reviewed. 10/10/2020 Patient is still complains of nausea and dry heaves. No complaints of chest pain or shortness of breath. No fever no chills. Patient is being continued on insulin drip and titrate dose as needed. Patient is unable to tolerate oral diet. No cough or sputum production. No diarrhea. Patient's mother did discuss with her hospital social worker and would like the patient to be transferred to [facility]. Otherwise patient is being continued on symptomatic management for nausea and vomiting. Continue on PPI IV. Current medications reviewed. Objective - Vital Signs Vital signs: Vital Signs Temp 98.7 F 10/11/20 04:00 Pulse 96 10/11/20 04:00 Resp 16 10/11/20 04:00 BP 160/90 10/11/20 04:00 Pulse Ox 100 10/11/20 04:00 Intake & Output 10/10/20 10/11/20 10/11/20 18:59 06:59 18:59 Intake Total 32.972 45.964 5.757 Output Total 400 2050 Balance -367.028 -2004.036 5.757 Weight 60.5 kg Intake: Intake, IV Titration 32.972 45.964 5.757 Amount Insulin Regular 100 unit 11.863 In Sodium Chloride 0.9% 100 ml @ 0.1 UNITS/KG/HR 6.597 mls/hr IV .[id number] [facility] Rx#:[id number] Insulin Regular 100 unit 21.109 45.964 5.757 In Sodium Chloride 0.9% 100 ml @ Titrate IV .Q0M [facility] Rx#:[id number] Output: Urine 400 2050 Other: Voiding Method Urinal - Exam PHYSICAL EXAMINATION: Patient is lying in the bed comfortably, no acute distress, awake alert and oriented.. HEENT: Normocephalic. Neck is supple. Pupils reactive. Nostrils clear. Oral cavity is moist. Neck reveals no JVD, carotid bruits, or thyromegaly. CHEST EXAMINATION: Trachea is central. Symmetrical expansion. Lung curran clear to auscultation and percussion. CARDIAC: Normal S1, S2 with no gallops. No murmurs ABDOMEN: Soft. Mild abdominal epigastric tenderness. Bowel sounds normal. No organomegaly. No abdominal bruits. Extremities: reveal no edema. No clubbing or cyanosis Neurologically awake, alert, oriented x3 with well-coordinated movements. No focal deficits noted Skin: No rash or skin lesions. Psychiatric: Coperative. Nonsuicidal Musculoskeletal: No joint swelling or deformity. Normal range of motion. - Labs CBC & Chem 7: 10/10/20 08:24 10/10/20 08:24 Labs: Abnormal Lab Results - Last 24 Hours (Table) 10/10/20 10/10/20 10/10/20 Range/Units 10:17 11:10 12:11 POC Glucose (mg/dL) 298 H 319 H 386 H (75-99) mg/dL 10/10/20 10/10/20 10/10/20 Range/Units 13:01 13:59 16:05 POC Glucose (mg/dL) 367 H 382 H 411 H (75-99) mg/dL 10/10/20 10/10/20 10/10/20 Range/Units 17:11 18:21 19:59 POC Glucose (mg/dL) 335 H 275 H 173 H (75-99) mg/dL 10/10/20 10/10/20 10/11/20 Range/Units 22:00 23:54 01:54 POC Glucose (mg/dL) 207 H 135 H 216 H (75-99) mg/dL 10/11/20 10/11/20 10/11/20 Range/Units 03:54 05:59 08:11 POC Glucose (mg/dL) 192 H 174 H 186 H (75-99) mg/dL Assessment and Plan Assessment: Intractable nausea vomiting and abdominal discomfort due to diabetic gastroparesis flareup. Diabetic ketoacidosis. Resolved. Diabetes type 1 History of left renal transplant. Currently on tacrolimus and CellCept and prednisone. Diabetic gastroparesis with Botox treatment Hiatal hernia History of ESRD with hemodialysis Diabetic retinopathy with bilateral legally blind. Hypertension GI and DVT prophylaxis Plan: Patient will be continued on IV hydration with D5 half-normal saline and insulin drip. Patient is still nauseated and not tolerating oral diet. Continue to monitor CBC closely. Continue to monitor H&H. Continue with oral medications as tolerated. Replace electrolyte lites. Continue with symptomatic management for nausea and vomiting. Continue with pain management and follow-up closely. Discussed with the patient and his mother at bedside in detail. Time with Patient: Greater than 30
[2020-10-11 10:25] LABS: Glucose,Whole Blood 228 mg/dL (75-99)
[2020-10-11 11:00] LABS: Basophils % (A) 0 %; Eosinophils # (A) 0.1 k/uL (0-0.7); Eosinophils % (A) 1 %; HCT 42.1 % (39.0-53.0); HGB 14.6 gm/dL (13.0-17.5); Lymphocytes # (A) 0.7 k/uL (1.0-4.8); Lymphocytes % (A) 9 %; MCH 29.8 pg (25.0-35.0); MCHC 34.7 g/dL (31.0-37.0); Mean Platelet Volume 8.8; Monocytes # (A) 0.4 k/uL (0-1.0); Monocytes % (A) 6 %; Neutrophils # (A) 6.3 k/uL (1.3-7.7); Neutrophils % (A) 81 %; Platelet Count 133 k/uL (150-450); RBC 4.89 m/uL (4.30-5.90); RDW 14.1 % (11.5-15.5); WBC 7.7 k/uL (3.8-10.6)
[2020-10-11 11:08] LABS: African American GFR (CKD) >90 (>60 ml/min/1.73 sqM); Anion Gap 11 mmol/L; Blood Urea Nitrogen 17 mg/dL (9-20); Calcium 9.1 mg/dL (8.4-10.2); Carbon Dioxide 22 mmol/L (22-30); Chloride 99 mmol/L (98-107); Glucose 248 mg/dL (74-99); Non-African American GFR(CKD) >90 (>60 ml/min/1.73 sqM); Sodium 132 mmol/L (137-145)
[2020-10-11 11:19] LABS: Potassium 4.6 mmol/L (3.5-5.1)
[2020-10-11 12:13] LABS: Glucose,Whole Blood 321 mg/dL (75-99)
[2020-10-11] MEDS ORDERED: DOCUSATE 100 MG CAP PO SCH (12:15)
[2020-10-11 13:02] VITALS: PULSE 91; TEMP 97.8
[2020-10-11 14:08] VITALS: BP 172/95
[2020-10-11 14:13] LABS: Glucose,Whole Blood 299 mg/dL (75-99)
[2020-10-11 16:14] LABS: Glucose,Whole Blood 235 mg/dL (75-99)
== END 2020-10-11 16:58 | disposition home or self-care (01) | DRG 637 ==
LOC: EC 10:48 → 3SCARD 13:16
PROVIDERS: ADMIT Internal Medicine; ATTEND Internal Medicine
DX: E10.10 Type 1 diabetes mellitus with ketoacidosis without coma (principal); N18.6 End stage renal disease; I12.0 Hypertensive chronic kidney disease with stage 5 chronic kidney disease or end stage renal disease; Z94.0 Kidney transplant status; D72.829 Elevated white blood cell count, unspecified; E10.319 Type 1 diabetes mellitus with unspecified diabetic retinopathy without macular edema; E10.22 Type 1 diabetes mellitus with diabetic chronic kidney disease; E10.43 Type 1 diabetes mellitus with diabetic autonomic (poly)neuropathy; E78.5 Hyperlipidemia, unspecified; F32.9 Major depressive disorder, single episode, unspecified; H54.8 Legal blindness, as defined in USA; K31.84 Gastroparesis; K44.9 Diaphragmatic hernia without obstruction or gangrene; Z79.4 Long term (current) use of insulin; Z79.52 Long term (current) use of systemic steroids; Z79.82 Long term (current) use of aspirin; Z79.899 Other long term (current) drug therapy; Z99.2 Dependence on renal dialysis; K20.90 Esophagitis, unspecified without bleeding; K21.9 Gastro-esophageal reflux disease without esophagitis; K40.90 Unilateral inguinal hernia, without obstruction or gangrene, not specified as recurrent; N28.9 Disorder of kidney and ureter, unspecified
CPT/HCPCS: 36415; 80048; 80051; 80053; 81003; 82009; 82271; 82565; 82947; 83690; 84100; 84520; 85025; 85027; 87635; 96361; 96374; 99285

== ENCOUNTER 2020-10-15 16:22 | Emergency (ER) | payer MEDICARE ==
[2020-10-15 16:29] VITALS: TEMP 98
[2020-10-15] MEDS ORDERED: SODIUM CHLORIDE 0.9% 1,000 ML IV STA (16:51)
[2020-10-15 17:21] LABS: Basophils % (A) 1 %; Eosinophils # (A) 0.1 k/uL (0-0.7); Eosinophils % (A) 2 %; HCT 44.9 % (39.0-53.0); HGB 15.6 gm/dL (13.0-17.5); Lymphocytes # (A) 0.8 k/uL (1.0-4.8); Lymphocytes % (A) 9 %; MCH 30.4 pg (25.0-35.0); MCHC 34.9 g/dL (31.0-37.0); MCV 87.3 fL (80.0-100.0); Mean Platelet Volume 10.4; Monocytes # (A) 0.4 k/uL (0-1.0); Monocytes % (A) 5 %; Neutrophils # (A) 7.1 k/uL (1.3-7.7); Neutrophils % (A) 82 %; Platelet Count 182 k/uL (150-450); RBC 5.14 m/uL (4.30-5.90); RDW 14.9 % (11.5-15.5); WBC 8.6 k/uL (3.8-10.6)
[2020-10-15 17:22] LABS: Appearance,Urine Clear (Clear); Bilirubin,Urine Negative (Negative); Blood,Urine Negative (Negative); Color,Urine Yellow; Glucose,Urine (UA) 4+ (Negative); Ketones,Urine Negative (Negative); Leukocyte Esterase,Urine Negative (Negative); Nitrite,Urine Negative (Negative); PH, Urine 5.5 (5.0-8.0); Protein,Urine Trace (Negative); Specific Gravity,Urine 1.031 (1.001-1.035)
[2020-10-15 17:34] LABS: ALT 15 U/L (4-49); AST 26 U/L (17-59); African American GFR (CKD) >90 (>60 ml/min/1.73 sqM); Albumin 3.5 g/dL (3.5-5.0); Alkaline Phosphatase 81 U/L (38-126); Anion Gap 6 mmol/L; Blood Urea Nitrogen 13 mg/dL (9-20); Calcium 9.3 mg/dL (8.4-10.2); Carbon Dioxide 24 mmol/L (22-30); Chloride 105 mmol/L (98-107); Glucose 132 mg/dL (74-99); Magnesium 1.6 mg/dL (1.6-2.3); Non-African American GFR(CKD) >90 (>60 ml/min/1.73 sqM); Potassium 4.7 mmol/L (3.5-5.1); Sodium 135 mmol/L (137-145); Total Bilirubin 1.1 mg/dL (0.2-1.3); Total Protein 6.1 g/dL (6.3-8.2)
[2020-10-15 17:37] LABS: Prothrombin Time 10.5 sec (9.0-12.0)
[2020-10-15 17:53] LABS: Partial Thromboplastin Time 18.9 sec (22.0-30.0)
--- NOTE | 2020-10-15 17:56 | XR ---
EXAMINATION TYPE: XR chest 2V DATE OF EXAM: 10/15/2020 COMPARISON: 11/08/2019 HISTORY: Weakness TECHNIQUE: 2 views FINDINGS: Heart and mediastinum are normal. Lungs are clear. Diaphragm is normal. Bony thorax is inta ct. IMPRESSION: Normal chest. No change.
--- NOTE | 2020-10-15 18:22 | ED ---
General Adult HPI - General Chief complaint: Recheck/Abnormal Lab/Rx Stated complaint: SOB Time Seen by Provider: 10/15/20 16:46 Source: patient, EMS, RN notes reviewed, old records reviewed Mode of arrival: EMS Limitations: no limitations - History of Present Illness Initial comments: 34-year-old male who had been transported to the hospital by paramedics after receiving evaluation at urgent care. Patient initially presented with cough and concerned that he might have coronavirus. He was tested at the urgent care for coronavirus in this was negative. There was concern for hypoxia and hypotension and the patient was transported. Patient is feeling quite well. He had been admitted with DKA recently. He he believes that his cough may be related to the vomiting episodes he had related with DKA. No fever. Patient has no other complaints. Patient has history of type 1 diabetes, gastroparesis, and end- stage renal disease status post transplant. - Related Data Home Medications Medication Instructions Recorded Confirmed Omeprazole 20 mg PO BID@0900,209908/28/17 10/15/20 Aspirin EC [Ecotrin Low Dose] 81 mg PO DAILY@0900 05/18/18 10/15/20 Insulin Aspart [NovoLOG Flexpen] 2 - 16 unit SQ ACHS PRN 11/02/18 10/15/20 Atorvastatin [Lipitor] 40 mg PO HS@209911/07/19 10/15/20 Calcium Citrate 250 mg PO BID@0900,209911/07/19 10/15/20 Cholecalciferol [Vitamin D3 (25 2,000 unit PO HS@209911/07/19 10/15/20 Mcg = 1000 Iu)] Fludrocortisone [Florinef] 0.1 mg PO DAILY@89911/07/19 10/15/20 Loratadine [Claritin] 10 mg PO DAILY@0900 PRN 11/07/19 10/15/20 Midodrine HCl 10 mg PO TID@0900,1400,209911/07/19 10/15/20 Tacrolimus [Envarsus Xr] 3 mg PO DAILY@89911/07/19 10/15/20 mycophenolate mofetiL [Cellcept] 1,000 mg PO BID@0900,209911/07/19 10/15/20 predniSONE 5 mg PO DAILY@89911/07/19 10/15/20 Prochlorperazine [Compazine] 10 mg PO Q8H PRN 10/15/20 10/15/20 Previous Rx's Medication Instructions Recorded Ondansetron Odt [Zofran ODT] 4 mg PO Q8HR PRN #30 tab 11/07/19 Allergies Allergy/AdvReac Type Severity Reaction Status Date / Time metoclopramide [From Reglan] Allergy ITCHY Verified 10/15/20 17:43 FEELING " Review of Systems ROS Statement: Those systems with pertinent positive or pertinent negative responses have been documented in the HPI. ROS Other: All systems not noted in ROS Statement are negative. Past Medical History Past Medical History: Diabetes Mellitus, Eye Disorder, GERD/Reflux, Hyperlipidemia, Hypertension, Renal Disease Additional Past Medical History / Comment(s): past DKA, neuropathy bilateral feet, diabetic nephropathy/ESRD with hemodialysis M/W/F [facility], diabetic retinopathy/bleeds bilaterally-pt legally blind, gastroparesis with botox treatment, esophagitis, hiatal hernia, History of Any Multi-Drug Resistant Organisms: None Reported Past Surgical History: Hernia Repair Additional Past Surgical History / Comment(s): Vitrectomy right eye, 04/2017 bilateral laser eye surgery for retinal bleeds unsuccessful, eye injections, EGD, colonoscopy, dialysis cath placed rt upper chest on 12-03-17, graft rt forearm 10/06/18 for dialysis, L inguinal hernia repair, kidney transplant- left Past Anesthesia/Blood Transfusion Reactions: Postoperative Nausea & Vomiting (PONV) Additional Past Anesthesia/Blood Transfusion Reaction / Comment(s): clauste rphobia, Pt has received multiple transfusions. Past Psychological History: Depression Smoking Status: Never smoker Past Alcohol Use History: None Reported Past Drug Use History: None Reported - Past Family History Father Family Medical History: No Reported History Additional Family Medical History / Comment(s): Father is healthy Mother Family Medical History: No Reported History Additional Family Medical History / Comment(s): Mother is healthy. General Exam Limitations: no limitations General appearance: alert, in no apparent distress Head exam: Present: atraumatic, normocephalic Eye exam: Present: normal appearance ENT exam: Present: mucous membranes dry Neck exam: Present: normal inspection. Absent: tenderness, meningismus Respiratory exam: Present: normal lung sounds bilaterally. Absent: respiratory distress, wheezes Cardiovascular Exam: Present: regular rate, normal rhythm GI/Abdominal exam: Present: soft. Absent: distended, tenderness Extremities exam: Present: normal inspection, other (Bilateral hand spasm) Neurological exam: Present: alert, oriented X3, CN II-XII intact. Absent: motor sensory deficit Psychiatric exam: Present: anxious Skin exam: Present: warm, dry, intact. Absent: cyanosis, diaphoretic Course Vital Signs 10/15/20 10/15/20 16:24 18:09 Temperature 98.0 F Pulse Rate 83 91 Respiratory 16 16 Rate Blood Pressure 85/64 132/87 O2 Sat by Pulse 100 99 Oximetry Medical Decision Making - Medical Decision Making 34-year-old male who had been evaluated for hypoxia and hypotension. Patient found to have normal oxygenation on room air, no dyspnea, lungs are clear, chest x-ray is free of focal pneumonia. I did perform laboratory testing in the patient's has a normal CBC, normal CMP, no signs of DKA. He has coronavirus testing prior to arrival. Which was negative. Patient overall well-appearing, blood pressure is stable after minimal IV hydration. He is eager for discharge. He will return as needed. - Lab Data Result diagrams: 10/15/20 17:13 10/15/20 17:13 Lab Results 10/15/20 10/15/20 10/15/20 Range/Units 17:13 17:13 17:13 WBC 8.6 (3.8-10.6) k/uL RBC 5.14 (4.30-5.90) m/uL Hgb 15.6 (13.0-17.5) gm/dL Hct 44.9 (39.0-53.0) % MCV 87.3 (80.0-100.0) fL MCH 30.4 (25.0-35.0) pg MCHC 34.9 (31.0-37.0) g/dL RDW 14.9 (11.5-15.5) % Plt Count 182 (150-450) k/uL MPV 10.4 Neutrophils % 82 % Lymphocytes % 9 % Monocytes % 5 % Eosinophils % 2 % Basophils % 1 % Neutrophils # 7.1 (1.3-7.7) k/uL Lymphocytes # 0.8 L (1.0-4.8) k/uL Monocytes # 0.4 (0-1.0) k/uL Eosinophils # 0.1 (0-0.7) k/uL Basophils # 0.0 (0-0.2) k/uL PT 10.5 (9.0-12.0) sec INR 1.0 (<1.2) APTT 18.9 L (22.0-30.0) sec Sodium (137-145) mmol/L Potassium (3.5-5.1) mmol/L Chloride (98-107) mmol/L Carbon Dioxide (22-30) mmol/L Anion Gap mmol/L BUN (9-20) mg/dL Creatinine (0.66-1.25) mg/dL Est GFR (CKD-EPI)AfAm (>60 ml/min/1.73 sqM) Est GFR (CKD-EPI)NonAf (>60 ml/min/1.73 sqM) Glucose (74-99) mg/dL Plasma Lactic Acid [place] (0.7-2.0) mmol/L Calcium (8.4-10.2) mg/dL Magnesium (1.6-2.3) mg/dL Total Bilirubin (0.2-1.3) mg/dL AST (17-59) U/L ALT (4-49) U/L Alkaline Phosphatase (38-126) U/L Total Protein (6.3-8.2) g/dL Albumin (3.5-5.0) g/dL Urine Color Yellow Urine Appearance Clear (Clear) Urine pH 5.5 (5.0-8.0) Ur Specific [place] 1.031 (1.001-1.035) Urine Protein Trace H (Negative) Urine Glucose (UA) 4+ H (Negative) Urine Ketones Negative (Negative) Urine Blood Negative (Negative) Urine Nitrite Negative (Negative) Urine Bilirubin Negative (Negative) Urine Urobilinogen 2.0 (<2.0) mg/dL Ur Leukocyte Esterase Negative (Negative) Acetone, Qual (Negative) 10/15/20 10/15/20 Range/Units 17:13 17:13 WBC (3.8-10.6) k/uL RBC (4.30-5.90) m/uL Hgb (13.0-17.5) gm/dL Hct (39.0-53.0) % MCV (80.0-100.0) fL MCH (25.0-35.0) pg MCHC (31.0-37.0) g/dL RDW (11.5-15.5) % Plt Count (150-450) k/uL MPV Neutrophils % % Lymphocytes % % Monocytes % % Eosinophils % % Basophils % % Neutrophils # (1.3-7.7) k/uL Lymphocytes # (1.0-4.8) k/uL Monocytes # (0-1.0) k/uL Eosinophils # (0-0.7) k/uL Basophils # (0-0.2) k/uL PT (9.0-12.0) sec INR (<1.2) APTT (22.0-30.0) sec Sodium 135 L (137-145) mmol/L Potassium 4.7 (3.5-5.1) mmol/L Chloride 105 (98-107) mmol/L Carbon Dioxide 24 (22-30) mmol/L Anion Gap 6 mmol/L BUN 13 (9-20) mg/dL Creatinine 1.06 (0.66-1.25) mg/dL Est GFR (CKD-EPI)AfAm >90 (>60 ml/min/1.73 sqM) Est GFR (CKD-EPI)NonAf >90 (>60 ml/min/1.73 sqM) Glucose 132 H (74-99) mg/dL Plasma Lactic Acid [place] 1.2 (0.7-2.0) mmol/L Calcium 9.3 (8.4-10.2) mg/dL Magnesium 1.6 (1.6-2.3) mg/dL Total Bilirubin 1.1 (0.2-1.3) mg/dL AST 26 (17-59) U/L ALT 15 (4-49) U/L Alkaline Phosphatase 81 (38-126) U/L Total Protein 6.1 L (6.3-8.2) g/dL Albumin 3.5 (3.5-5.0) g/dL Urine Color Urine Appearance (Clear) Urine pH (5.0-8.0) Ur Specific [place] (1.001-1.035) Urine Protein (Negative) Urine Glucose (UA) (Negative) Urine Ketones (Negative) Urine Blood (Negative) Urine Nitrite (Negative) Urine Bilirubin (Negative) Urine Urobilinogen (<2.0) mg/dL Ur Leukocyte Esterase (Negative) Acetone, Qual Negative (Negative) Disposition Clinical Impression: Dehydration Disposition: HOME SELF-CARE Condition: Good Instructions (If sedation given, give patient instructions): Dehydration (ED), Upper Respiratory Infection (ED) Is patient prescribed a controlled substance at d/c from ED?: No Referrals: Sahra Hurtado MD [Primary Care Provider] - 1-2 days Time of Disposition: 18:32
[2020-10-15 18:58] VITALS: BP 140/87; PULSE 98; RESP 18
== END 2020-10-15 18:58 | disposition home or self-care (01) ==
LOC: EC 16:22
DX: E86.0 Dehydration (principal); R05 Cough; E10.22 Type 1 diabetes mellitus with diabetic chronic kidney disease; E10.43 Type 1 diabetes mellitus with diabetic autonomic (poly)neuropathy; I12.0 Hypertensive chronic kidney disease with stage 5 chronic kidney disease or end stage renal disease; N18.6 End stage renal disease; E78.5 Hyperlipidemia, unspecified; Z88.8 Allergy status to other drugs, medicaments and biological substances; Z94.0 Kidney transplant status; Z99.2 Dependence on renal dialysis; Z79.899 Other long term (current) drug therapy
CPT/HCPCS: 36415; 71046; 80053; 81003; 82009; 83605; 83735; 85025; 85610; 85730; 96360; 96361; 99284

== ENCOUNTER → 2020-11-28 | Outpatient (CLI) | payer MEDICARE ==
[2020-11-28 12:17] LABS: HCT 44.6 % (39.6-50.0); HGB 14.4 g/dL (13.0-17.0); MCH 28.6 pg (27.0-32.0); MCHC 32.3 g/dL (32.0-37.0); MCV 88.7 fL (80.0-97.0); Platelet Count 173 X 10*3/uL (140-440); RBC 5.03 X 10*6/uL (4.40-5.60); RDW 14.1 % (11.5-14.5); WBC 6.81 X 10*3/uL (4.50-10.00)
[2020-11-28 13:32] LABS: % Iron Saturation 30.28 (15.00-50.00); Albumin 4.4 g/dL (3.8-4.9); Albumin/Globulin Ratio 1.98 (1.60-3.17); Anion Gap 12.8 mmol/L (4.00-12.00); BUN/Creat Ratio 18.43 Ratio (12.00-20.00); Blood Urea Nitrogen 21.2 mg/dL (9.0-27.0); Calcium 9.8 mg/dL (8.7-10.3); Chol/HDL Ratio 1.9 Ratio; Globulin 2.2 g/dL (1.6-3.3); HDL Cholesterol 54.7 mg/dL (40.00-60.00); Magnesium 1.7 mg/dL (1.5-2.4); Phosphorus 4.2 mg/dL (2.4-5.1); Potassium 4.7 mmol/L (3.5-5.5); Total Bilirubin 0.9 mg/dL (0.30-1.20); Total Protein 6.6 g/dL (6.2-8.2); Triglycerides 49.4 mg/dL (0.00-149.00); Uric Acid 4.1 mg/dL (3.7-8.7); VLDL Calculation 9.88 mg/dL (5.00-40.00)
[2020-11-28 21:43] LABS: Microalbumin Creatinine Ratio <30 mg/g Creat (0-30)
== END | disposition home or self-care (01) ==
LOC: LABWHC1 06:58
PROVIDERS: ATTEND Internal Medicine Nephrology
DX: D64.9 Anemia, unspecified (principal); R80.9 Proteinuria, unspecified; N25.81 Secondary hyperparathyroidism of renal origin; E55.9 Vitamin D deficiency, unspecified; Z94.83 Pancreas transplant status; Z94.0 Kidney transplant status
CPT/HCPCS: 36415; 80053; 80061; 80197; 82043; 82306; 82570; 82728; 83036; 83540; 83550; 83735; 83970; 84100; 84550; 85027

== ENCOUNTER → 2021-01-23 | Outpatient (CLI) | payer MEDICARE ==
[2021-01-23 08:32] LABS: Appearance,Urine Clear (Clear); Bilirubin,Urine Negative (Negative); Blood,Urine Negative (Negative); Color,Urine Yellow; Glucose,Urine (UA) 4+ (Negative); Ketones,Urine Negative (Negative); Leukocyte Esterase,Urine Negative (Negative); Nitrite,Urine Negative (Negative); PH, Urine 5.5 (5.0-8.0); Protein,Urine Negative (Negative); Specific Gravity,Urine 1.026 (1.001-1.035); Urobilinogen,Urine <2.0 mg/dL (<2.0)
[2021-01-23 09:07] LABS: Creatinine,Urine Random 111.9 mg/dL; Protein/Creatinine Ratio,Urine 0.098
[2021-01-23 11:21] LABS: African American GFR (CKD) 99.2 (60.0-200.0); Albumin 4.2 g/dL (3.8-4.9); Anion Gap 10.7 mmol/L (10.00-18.00); BUN/Creat Ratio 16.4 Ratio (12.00-20.00); Blood Urea Nitrogen 18.2 mg/dL (9.0-27.0); Calcium 9.4 mg/dL (8.7-10.3); Carbon Dioxide 26.6 mmol/L (20.0-27.5); Non-African American GFR(CKD) 85.6 (60.0-200.0); Phosphorus 4.4 mg/dL (2.4-5.1); Potassium 3.9 mmol/L (3.5-5.5)
[2021-01-23 13:47] LABS: Microalbumin Creatinine Ratio <30 mg/g Creat (0-30)
== END | disposition home or self-care (01) ==
LOC: LABWHC1 07:15
PROVIDERS: ATTEND Internal Medicine Nephrology
DX: B34.8 Other viral infections of unspecified site (principal); Z94.0 Kidney transplant status
CPT/HCPCS: 36415; 80069; 81003; 82043; 82570; 84156

== ENCOUNTER → 2021-04-12 | Outpatient (CLI) | payer MEDICARE, BC ==
[2021-04-12 10:42] LABS: African American GFR (CKD) 90.3 (60.0-200.0); Albumin/Globulin Ratio 1.54 (1.60-3.17); Anion Gap 11.5 mmol/L (10.00-18.00); BUN/Creat Ratio 9.58 Ratio (12.00-20.00); Blood Urea Nitrogen 11.5 mg/dL (9.0-27.0); Calcium 9.6 mg/dL (8.7-10.3); Carbon Dioxide 24.5 mmol/L (20.0-27.5); Globulin 2.6 g/dL (1.6-3.3); Non-African American GFR(CKD) 77.9 (60.0-200.0); Potassium 4.1 mmol/L (3.5-5.5); Total Bilirubin 0.8 mg/dL (0.30-1.20); Total Protein 6.6 g/dL (6.2-8.2)
[2021-04-12 21:04] LABS: Urine Creatinine 73.9 mg/dL (39.0-259.0)
== END | disposition home or self-care (01) ==
LOC: LABWHC1 07:19
PROVIDERS: ATTEND Internal Medicine
DX: E10.65 Type 1 diabetes mellitus with hyperglycemia (principal); Z94.0 Kidney transplant status
CPT/HCPCS: 36415; 80053; 82043; 82570; 83036

== ENCOUNTER → 2021-06-14 | Outpatient (CLI) | payer MEDICARE, BC ==
[2021-06-14 09:43] LABS: Creatinine,Urine Random 62.4 mg/dL; Protein/Creatinine Ratio,Urine 0.192
[2021-06-14 10:57] LABS: % Iron Saturation 27.48 (15.00-50.00); African American GFR (CKD) 74.9 (60.0-200.0); BUN/Creat Ratio 10.86 Ratio (12.00-20.00); Blood Urea Nitrogen 15.2 mg/dL (9.0-27.0); Calcium 9.5 mg/dL (8.7-10.3); Carbon Dioxide 27.1 mmol/L (20.0-27.5); Chloride 104 mmol/L (96-109); Ferritin 67.1 ng/mL (22.0-322.0); Glucose 145 mg/dL (70-110); Iron 89 ug/dL (65-175); Magnesium 1.7 mg/dL (1.5-2.4); Non-African American GFR(CKD) 64.6 (60.0-200.0); Phosphorus 5.1 mg/dL (2.4-5.1); Potassium 4.6 mmol/L (3.5-5.5); Sodium 141 mmol/L (135-145); Total Iron Binding Capacity 322 ug/dL (228-460)
[2021-06-14 11:07] LABS: Basophils # (A) 0.04 X 10*3/uL (0.00-0.10); Basophils % (A) 0.7 %; Eosinophils # (A) 0.21 X 10*3/uL (0.04-0.35); Eosinophils % (A) 3.4 %; HCT 46.2 % (39.6-50.0); HGB 14.9 g/dL (13.0-17.0); Immature Grans, Automated 0.3 %; Lymphocytes # (A) 1.37 X 10*3/uL (0.90-5.00); Lymphocytes % (A) 22.4 %; MCH 27.5 pg (27.0-32.0); MCHC 32.3 g/dL (32.0-37.0); MCV 85.4 fL (80.0-97.0); Mean Platelet Volume 13.2 fL (9.5-12.2); Monocytes # (A) 0.54 X 10*3/uL (0.20-1.00); Monocytes % (A) 8.8 %; NRBC Per 100 WBC 0 /100 WBCS (0.0-0.0); Neutrophils # (A) 3.93 X 10*3/uL (1.80-7.70); Neutrophils % (A) 64.4 %; Platelet Count 150 X 10*3/uL (140-440); RBC 5.41 X 10*6/uL (4.40-5.60); RDW 13.3 % (11.5-14.5); WBC 6.11 X 10*3/uL (4.50-10.00)
[2021-06-14 11:08] LABS: Albumin 4.2 g/dL (3.8-4.9); Chol/HDL Ratio 1.84 Ratio; LDL Cholesterol,Calculated 37.3 mg/dL (0.0-131.0); VLDL Calculation 15.22 mg/dL (5.00-40.00)
[2021-06-14 12:12] LABS: Appearance,Urine Clear (Clear); Bilirubin,Urine Negative (Negative); Blood,Urine Negative (Negative); Color,Urine Yellow (Yellow); Ketones,Urine Negative (Negative); Nitrite,Urine Negative (Negative); PH, Urine 5.5 (5.0-8.0); Specific Gravity,Urine 1.016 (1.001-1.030); Urobilinogen,Urine 0.2 (0.2,1.0)
== END | disposition home or self-care (01) ==
LOC: LABWHC1 07:11
PROVIDERS: ATTEND Internal Medicine Nephrology
DX: E78.00 Pure hypercholesterolemia, unspecified (principal); B34.8 Other viral infections of unspecified site; E55.9 Vitamin D deficiency, unspecified; N25.81 Secondary hyperparathyroidism of renal origin; N39.0 Urinary tract infection, site not specified; D64.9 Anemia, unspecified; R80.9 Proteinuria, unspecified; Z94.83 Pancreas transplant status; Z94.0 Kidney transplant status
CPT/HCPCS: 36415; 80048; 80061; 81003; 82040; 82306; 82570; 82728; 83540; 83550; 83735; 83970; 84100; 84156; 84403; 85025

== ENCOUNTER → 2021-07-17 | Outpatient (CLI) | payer MEDICARE, BC ==
[2021-07-17 10:51] LABS: Chol/HDL Ratio 1.88 Ratio; LDL Cholesterol,Calculated 36.8 mg/dL (0.0-131.0)
== END | disposition home or self-care (01) ==
LOC: LABWHC1 07:10
PROVIDERS: ATTEND Internal Medicine
DX: E10.65 Type 1 diabetes mellitus with hyperglycemia (principal); E78.5 Hyperlipidemia, unspecified
CPT/HCPCS: 36415; 80061; 83036

== ENCOUNTER → 2021-08-15 | Outpatient (CLI) | payer MEDICARE, BC ==
[2021-08-15 10:47] LABS: African American GFR (CKD) 76.2 (60.0-200.0); Albumin 4.2 g/dL (3.8-4.9); Anion Gap 9.6 mmol/L (10.00-18.00); BUN/Creat Ratio 12.17 Ratio (12.00-20.00); Blood Urea Nitrogen 16.8 mg/dL (9.0-27.0); Calcium 9.4 mg/dL (8.7-10.3); Carbon Dioxide 25.9 mmol/L (20.0-27.5); Non-African American GFR(CKD) 65.8 (60.0-200.0); Potassium 4.9 mmol/L (3.5-5.5)
[2021-08-15 11:58] LABS: Basophils # (A) 0.03 X 10*3/uL (0.00-0.10); Basophils % (A) 0.5 %; Eosinophils # (A) 0.22 X 10*3/uL (0.04-0.35); HCT 47.6 % (39.6-50.0); HGB 15.2 g/dL (13.0-17.0); Immature Grans, Automated 0.4 %; Lymphocytes # (A) 1.11 X 10*3/uL (0.90-5.00); Lymphocytes % (A) 20.2 %; MCH 27.2 pg (27.0-32.0); MCHC 31.9 g/dL (32.0-37.0); MCV 85.2 fL (80.0-97.0); Mean Platelet Volume 13.2 fL (9.5-12.2); Monocytes # (A) 0.52 X 10*3/uL (0.20-1.00); Monocytes % (A) 9.5 %; NRBC Per 100 WBC 0 /100 WBCS (0.0-0.0); Neutrophils # (A) 3.59 X 10*3/uL (1.80-7.70); Neutrophils % (A) 65.4 %; Platelet Count 147 X 10*3/uL (140-440); RBC 5.59 X 10*6/uL (4.40-5.60); RDW 13.2 % (11.5-14.5); WBC 5.49 X 10*3/uL (4.50-10.00)
== END | disposition home or self-care (01) ==
LOC: LABWHC1 07:00
PROVIDERS: ATTEND Internal Medicine Nephrology
DX: Z94.0 Kidney transplant status (principal)
CPT/HCPCS: 36415; 80069; 85025

== ENCOUNTER → 2021-09-18 | Outpatient (CLI) | payer BC ==
[2021-09-18 08:41] LABS: Appearance,Urine Clear (Clear); Bilirubin,Urine Negative (Negative); Blood,Urine Negative (Negative); Color,Urine Yellow; Glucose,Urine (UA) 4+ (Negative); Ketones,Urine Negative (Negative); Leukocyte Esterase,Urine Negative (Negative); Nitrite,Urine Negative (Negative); PH, Urine 5.5 (5.0-8.0); Protein,Urine Negative (Negative); Urobilinogen,Urine <2.0 mg/dL (<2.0)
[2021-09-18 11:05] LABS: % Iron Saturation 14.03 (15.00-50.00); African American GFR (CKD) 90.3 (60.0-200.0); Anion Gap 10.3 mmol/L (10.00-18.00); BUN/Creat Ratio 11.33 Ratio (12.00-20.00); Blood Urea Nitrogen 13.6 mg/dL (9.0-27.0); Carbon Dioxide 26.7 mmol/L (20.0-27.5); Magnesium 1.7 mg/dL (1.5-2.4); Non-African American GFR(CKD) 77.9 (60.0-200.0); Phosphorus 4.4 mg/dL (2.4-5.1); Potassium 4.4 mmol/L (3.5-5.5); Uric Acid 5.7 mg/dL (3.7-8.7)
[2021-09-18 11:29] LABS: Ferritin 34.6 ng/mL (22.0-322.0)
[2021-09-18 11:30] LABS: Basophils # (A) 0.03 X 10*3/uL (0.00-0.10); Basophils % (A) 0.5 %; Eosinophils # (A) 0.13 X 10*3/uL (0.04-0.35); Eosinophils % (A) 2.3 %; HCT 47.9 % (39.6-50.0); HGB 15.4 g/dL (13.0-17.0); Immature Grans, Automated 0.4 %; Lymphocytes # (A) 1.05 X 10*3/uL (0.90-5.00); Lymphocytes % (A) 18.6 %; MCH 27.8 pg (27.0-32.0); MCHC 32.2 g/dL (32.0-37.0); MCV 86.5 fL (80.0-97.0); Mean Platelet Volume 13.1 fL (9.5-12.2); Monocytes # (A) 0.54 X 10*3/uL (0.20-1.00); Monocytes % (A) 9.5 %; NRBC Per 100 WBC 0 /100 WBCS (0.0-0.0); Neutrophils # (A) 3.89 X 10*3/uL (1.80-7.70); Neutrophils % (A) 68.7 %; Platelet Count 148 X 10*3/uL (140-440); RBC 5.54 X 10*6/uL (4.40-5.60); RDW 14.4 % (11.5-14.5); WBC 5.66 X 10*3/uL (4.50-10.00)
[2021-09-19 06:27] LABS: Microalbumin Creatinine Ratio <30 mg/g Creat (0-30); Urine Creatinine 72.5 mg/dL (39.0-259.0)
== END | disposition home or self-care (01) ==
LOC: LABWHC1 07:09
PROVIDERS: ATTEND Internal Medicine Nephrology
DX: N25.81 Secondary hyperparathyroidism of renal origin (principal); M10.9 Gout, unspecified; N39.0 Urinary tract infection, site not specified; D64.9 Anemia, unspecified; R80.9 Proteinuria, unspecified; Z94.83 Pancreas transplant status
CPT/HCPCS: 36415; 80048; 80197; 81003; 82040; 82043; 82306; 82570; 82728; 83540; 83550; 83735; 83970; 84100; 84550; 85025

== ENCOUNTER → 2022-05-09 | Outpatient (CLI) | payer BC, OTHER ==
[2022-05-09 12:36] LABS: Basophils # (A) 0.03 X 10*3/uL (0.00-0.10); Basophils % (A) 0.5 %; Eosinophils # (A) 0.19 X 10*3/uL (0.04-0.35); HGB 16.8 g/dL (13.0-17.0); Immature Grans, Automated 0.3 %; Lymphocytes # (A) 1.45 X 10*3/uL (0.90-5.00); Lymphocytes % (A) 23.1 %; MCH 27.6 pg (27.0-32.0); MCHC 32.3 g/dL (32.0-37.0); MCV 85.5 fL (80.0-97.0); Mean Platelet Volume 12.7 fL (9.5-12.2); Monocytes # (A) 0.55 X 10*3/uL (0.20-1.00); Monocytes % (A) 8.7 %; NRBC Per 100 WBC 0 /100 WBCS (0.0-0.0); Neutrophils # (A) 4.05 X 10*3/uL (1.80-7.70); Neutrophils % (A) 64.4 %; Platelet Count 147 X 10*3/uL (140-440); RBC 6.08 X 10*6/uL (4.40-5.60); RDW 15.4 % (11.5-14.5); WBC 6.29 X 10*3/uL (4.50-10.00)
[2022-05-09 15:31] LABS: Albumin 4.3 g/dL (3.8-4.9); Ferritin 39.4 ng/mL (22.0-322.0)
[2022-05-09 15:34] LABS: % Iron Saturation 15.29 (15.00-50.00); African American GFR (CKD) 74.4 (60.0-200.0); Anion Gap 16.2 mmol/L (10.00-18.00); BUN/Creat Ratio 11.57 Ratio (12.00-20.00); Blood Urea Nitrogen 16.2 mg/dL (9.0-27.0); Carbon Dioxide 20.8 mmol/L (20.0-27.5); Magnesium 1.5 mg/dL (1.5-2.4); Non-African American GFR(CKD) 64.2 (60.0-200.0); Phosphorus 5.4 mg/dL (2.4-5.1); Potassium 4.9 mmol/L (3.5-5.5); Uric Acid 5.6 mg/dL (3.7-8.7)
[2022-05-09 18:55] LABS: Appearance,Urine Clear (Clear); Bilirubin,Urine Negative (Negative); Blood,Urine Negative (Negative); Color,Urine Yellow (Yellow); Ketones,Urine Negative (Negative); Nitrite,Urine Negative (Negative); PH, Urine 5.5 (5.0-8.0); Specific Gravity,Urine 1.016 (1.001-1.030); Urobilinogen,Urine 0.2 (0.2,1.0)
[2022-05-09 21:50] LABS: Urine Creatinine 61.5 mg/dL (39.0-259.0)
== END | disposition home or self-care (01) ==
LOC: LABWHC1 06:58
PROVIDERS: ATTEND Nurse Practitioner Family
DX: N25.81 Secondary hyperparathyroidism of renal origin (principal); M10.9 Gout, unspecified; N39.0 Urinary tract infection, site not specified; D64.9 Anemia, unspecified; R80.9 Proteinuria, unspecified; Z94.0 Kidney transplant status; Z94.83 Pancreas transplant status
CPT/HCPCS: 36415; 80048; 81001; 82040; 82043; 82306; 82570; 82728; 83540; 83550; 83735; 83970; 84100; 84550; 85025

== ENCOUNTER → 2022-10-07 | Outpatient (CLI) | payer BC, MEDICARE ==
[2022-10-07 11:04] LABS: Basophils # (A) 0.04 X 10*3/uL (0.00-0.10); Basophils % (A) 0.5 %; Eosinophils # (A) 0.23 X 10*3/uL (0.04-0.35); Eosinophils % (A) 3.1 %; HCT 47.8 % (39.6-50.0); HGB 15.8 d/dL (13.0-17.0); Lymphocytes # (A) 2.26 X 10*3/uL (0.90-5.00); Lymphocytes % (A) 30.1 %; MCH 28.5 pg (27.0-32.0); MCHC 33.1 d/dL (32.0-37.0); MCV 86.1 FL (80.0-97.0); Mean Platelet Volume 12.9 FL (9.5-12.2); Monocytes # (A) 0.54 X 10*3/uL (0.20-1.00); Monocytes % (A) 7.2 %; NRBC Per 100 WBC 0 X 10*3/uL (0.00-0.01); Neutrophils # (A) 4.43 X 10*3/uL (1.80-7.70); Platelet Count 163 X 10*3/uL (140-440); RBC 5.55 X 10*6/uL (4.40-5.60); RDW 14.5 % (11.5-14.5); WBC 7.51 X 10*3/uL (4.50-10.00)
[2022-10-07 11:27] LABS: Appearance,Urine Clear (Clear); Bilirubin,Urine Negative (Negative); Blood,Urine Negative (Negative); Color,Urine Yellow (Yellow); Ketones,Urine Negative (Negative); Nitrite,Urine Negative (Negative); PH, Urine 5.5; Specific Gravity,Urine 1.025 (1.001-1.030)
[2022-10-07 11:33] LABS: % Iron Saturation 19.27 (15.00-50.00); Albumin 4.5 d/dL (3.8-4.9); BUN/Creat Ratio 14.07 Ratio (12.00-20.00); Blood Urea Nitrogen 19.7 mg/dL (9.0-27.0); Calcium 9.5 mg/dL (8.7-10.3); Carbon Dioxide 25.9 mmol/L (21.6-31.8); Chloride 106 mmol/L (96-109); Ferritin 83.5 ng/mL (22.0-322.0); Glucose 76 mg/dL (70-110); Iron 58 UG/DL (65-175); Magnesium 1.7 mg/dL (1.5-2.4); Phosphorus 4.7 mg/dL (2.4-5.1); Potassium 4.3 mmol/L (3.5-5.5); Sodium 142 mmol/L (135-145); Total Iron Binding Capacity 301 UG/DL (228-460); Uric Acid 5.5 mg/dL (3.7-8.7)
[2022-10-07 13:00] LABS: Microalbumin Creatinine Ratio <13 mg/g Cr (0-30)
== END | disposition home or self-care (01) ==
LOC: LABWHC1 06:48
PROVIDERS: ATTEND Internal Medicine Nephrology
DX: E55.9 Vitamin D deficiency, unspecified (principal); D64.9 Anemia, unspecified; M10.9 Gout, unspecified; N25.81 Secondary hyperparathyroidism of renal origin; N39.0 Urinary tract infection, site not specified; Z94.0 Kidney transplant status; Z94.83 Pancreas transplant status
CPT/HCPCS: 36415; 80048; 81003; 82040; 82043; 82306; 82570; 82728; 83540; 83550; 83735; 83970; 84100; 84550; 85025

== ENCOUNTER 2023-02-07 14:47 | Emergency (ER) | payer BC, MEDICARE ==
[2023-02-07 15:57] LABS: Glucose,Whole Blood 101 mg/dL (70-110)
[2023-02-07 15:58] VITALS: TEMP 98.7
[2023-02-07] MEDS ORDERED: SODIUM CHLORIDE 0.9% 2,000 ML IV STA (16:57)
[2023-02-07 17:23] LABS: Basophils % (A) 0 %; Eosinophils # (A) 0.3 k/uL (0-0.7); Eosinophils % (A) 3 %; HCT 54.1 % (39.0-53.0); HGB 18.2 gm/dL (13.0-17.5); Lymphocytes # (A) 1.2 k/uL (1.0-4.8); Lymphocytes % (A) 13 %; MCH 28.2 pg (25.0-35.0); MCHC 33.7 g/dL (31.0-37.0); MCV 83.7 fL (80.0-100.0); Monocytes # (A) 0.6 k/uL (0-1.0); Monocytes % (A) 6 %; Neutrophils # (A) 7.3 k/uL (1.3-7.7); Neutrophils % (A) 76 %; Platelet Count 142 k/uL (150-450); Poikilocytosis Slight; RBC 6.47 m/uL (4.30-5.90); RDW 14.5 % (11.5-15.5); WBC 9.6 k/uL (3.8-10.6)
[2023-02-07 17:29] LABS: Appearance,Urine Cloudy (Clear); Bilirubin,Urine Negative (Negative); Blood,Urine Negative (Negative); Glucose,Urine (UA) 4+ (Negative); Hyaline Casts,Urine 10 /lpf (0-2); Ketones,Urine Negative (Negative); Leukocyte Esterase,Urine Negative (Negative); Mucus,Urine Moderate /hpf; Nitrite,Urine Negative (Negative); PH, Urine 5.5 (5.0-8.0); Protein,Urine 1+ (Negative); RBC,Urine 3 /hpf (0-5); Specific Gravity,Urine 1.022 (1.001-1.035); Squamous Epithelial Cell,Urine <1 /hpf (0-4); Urobilinogen,Urine <2.0 mg/dL (<2.0); WBC,Urine 7 /hpf (0-5)
[2023-02-07 17:31] LABS: Color,Urine Yellow
[2023-02-07 17:43] LABS: ALT 24 U/L (4-49); African American GFR (CKD) 70 (>60 ml/min/1.73 sqM); Albumin 4.8 g/dL (3.5-5.0); Anion Gap 13 mmol/L; Blood Urea Nitrogen 19 mg/dL (9-20); Calcium 9.3 mg/dL (8.4-10.2); Carbon Dioxide 20 mmol/L (22-30); Chloride 104 mmol/L (98-107); Glucose 98 mg/dL (74-99); Lipase 131 U/L (23-300); Non-African American GFR(CKD) 60 (>60 ml/min/1.73 sqM); Sodium 137 mmol/L (137-145); Total Bilirubin 1.9 mg/dL (0.2-1.3); Total Protein 8.2 g/dL (6.3-8.2)
--- NOTE | 2023-02-07 18:26 | ED ---
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 He reports that for the past couple of days he has had loose watery stool. Denies any black or bloody bowel movements. No sick contacts with similar symptoms. Denies eating any tainted foods. 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 He has been taking some Pepto with minimal improvement in his symptoms. He does have some nausea and did have one episode of vomiting however this was a couple of days ago. He denies any fevers. Patient has been able to drink plenty of water. He has a history of kidney transplant. He has been able to take all of his antirejection medications. He continues to have normal urination. No abdominal pain. No cough or shortness of breath. He does have an insulin pump. States that his sugars have been within normal limits. No other alleviating, precipitating or modifying factors - Related Data Home Medications Medication Instructions Recorded Confirmed Omeprazole 20 mg PO BID@899,209908/28/17 10/15/20 Aspirin EC [Ecotrin Low Dose] 81 mg PO DAILY@0905/18/18 10/15/20 Insulin Aspart [NovoLOG Flexpen] 2 - 16 unit SQ ACHS PRN 11/02/18 10/15/20 Atorvastatin [Lipitor] 40 mg PO HS@209911/07/19 10/15/20 Calcium Citrate 250 mg PO BID@899,209911/07/19 10/15/20 Cholecalciferol [Vitamin D3 (25 2,000 unit PO HS@209911/07/19 10/15/20 Mcg = 1000 Iu)] Fludrocortisone [Florinef] 0.1 mg PO DAILY@89911/07/19 10/15/20 Loratadine [Claritin] 10 mg PO DAILY@0900 PRN 11/07/19 10/15/20 Midodrine HCl 10 mg PO TID@0900,1400,209911/07/19 10/15/20 Tacrolimus [Envarsus Xr] 3 mg PO DAILY@0911/07/19 10/15/20 mycophenolate mofetiL [Cellcept] 1,000 mg PO BID@0900,2100 11/07/19 10/15/20 predniSONE 5 mg PO DAILY@89911/07/19 10/15/20 Prochlorperazine [Compazine] 10 mg PO Q8H PRN 10/15/20 10/15/20 Previous Rx's Medication Instructions Recorded Ondansetron Odt [Zofran ODT] 4 mg PO Q8HR PRN #30 tab 11/07/19 Allergies Allergy/AdvReac Type Severity Reaction Status Date / Time metoclopramide [From Reglan] Allergy ITCHY Verified 01/19/23 11:22 FEELING " Review of Systems ROS Statement: Those systems with pertinent positive or pertinent negative responses have been documented in the HPI. ROS Other: All systems not noted in ROS Statement are negative. Past Medical History Past Medical History: Diabetes Mellitus, Eye Disorder, GERD/Reflux, Hyperlipidemia, Hypertension, Renal Disease Additional Past Medical History / Comment(s): past DKA, neuropathy bilateral feet, diabetic nephropathy/ESRD with hemodialysis M/W/F [facility], diabetic retinopathy/bleeds bilaterally-pt legally blind, gastroparesis with botox treatment, esophagitis, hiatal hernia, gastrophoresis History of Any Multi-Drug Resistant Organisms: None Reported Past Surgical History: Hernia Repair Additional Past Surgical History / Comment(s): Vitrectomy right eye, 04/2017 bilateral laser eye surgery for retinal bleeds unsuccessful, eye injections, EGD, colonoscopy, dialysis cath placed rt upper chest on 12-03-17, graft rt forearm 10/06/18 for dialysis, L inguinal hernia repair, kidney transplant- left Past Anesthesia/Blood Transfusion Reactions: Postoperative Nausea & Vomiting (PONV) Additional Past Anesthesia/Blood Transfusion Reaction / Comment(s): clausterphobia, Pt has received multiple transfusions. Past Psychological History: Depression Smoking Status: Never smoker Past Alcohol Use History: Rare Past Drug Use History: None Reported - Past Family History Father Family Medical History: No Reported History Additional Family Medical History / Comment(s): Father is healthy Mother Family Medical History: No Reported History Additional Family Medical History / Comment(s): Mother is healthy. General Exam Limitations: no limitations General appearance: alert, in no apparent distress Head exam: Present: atraumatic, normocephalic, normal inspection Eye exam: Present: normal appearance, PERRL, EOMI. Absent: scleral icterus, conjunctival injection, periorbital swelling ENT exam: Present: normal exam, mucous membranes moist Neck exam: Present: normal inspection. Absent: tenderness, meningismus, lymphadenopathy Respiratory exam: Present: normal lung sounds bilaterally. Absent: respiratory distress, wheezes, rales, rhonchi, stridor Cardiovascular Exam: Present: regular rate, normal rhythm, normal heart sounds. Absent: systolic murmur, diastolic murmur, rubs, gallop, clicks GI/Abdominal exam: Present: soft, normal bowel sounds. Absent: distended, tenderness, guarding, rebound, rigid Extremities exam: Present: normal inspection, full ROM, normal capillary refill, other (Graft right upper extremity with positive thrill). Absent: tenderness, pedal edema, joint swelling, calf tenderness Back exam: Present: normal inspection Neurological exam: Present: alert, oriented X3, CN II-XII intact Psychiatric exam: Present: normal affect, normal mood Skin exam: Present: warm, dry, intact, normal color. Absent: rash Course Vital Signs 02/07/23 02/07/23 02/07/23 15:52 16:42 17:00 Temperature 98.7 F Pulse Rate 105 H 84 88 Respiratory 20 14 19 Rate Blood Pressure 86/61 110/70 110/72 O2 Sat by Pulse 100 Oximetry 02/07/23 02/07/23 02/07/23 17:30 18:00 18:30 Temperature Pulse Rate 90 86 87 Respiratory 18 18 Rate Blood Pressure 118/76 161/99 O2 Sat by Pulse Oximetry 02/07/23 20:00 Temperature Pulse Rate 90 Respiratory 17 Rate Blood Pressure 147/98 O2 Sat by Pulse Oximetry Medical Decision Making - Medical Decision Making Was pt. sent in by a medical professional or institution (, PA, SWITCHBOARD OPERATOR ASSISTANT, urgent care, hospital, or fdc...) When possible be specific @ -No Did you speak to anyone other than the patient for history (EMS, parent, family, police, friend...)? What history was obtained from this source @ -Spoke with the patient's girlfriend Did you review nursing and triage notes (agree or disagree)? Why? @ -I reviewed and agree with nursing and triage notes Were old charts reviewed (outside hosp., previous admission, EMS record, old EKG, old radiological studies, urgent care reports/EKG's, fdc records)? Report findings @ -No old charts were reviewed Differential Diagnosis (chest pain, altered mental status, abdominal pain women, abdominal pain men, vaginal bleeding, weakness, fever, dyspnea, syncope, headache, dizziness, GI bleed, back pain, seizure, CVA, palpatations, mental health, musculoskeletal)? @ -Gastroenteritis, dehydration, C. diff colitis EKG interpreted by me (3pts min.). @ -not done X-rays interpreted by me (1pt min.). @ -None done CT interpreted by me (1pt min.). @ -None done U/S interpreted by me (1pt. min.). @ -None done What testing was considered but not performed or refused? (CT, X-rays, U/S, labs)? Why? @ -None What meds were considered but not given or refused? Why? @ -None Did you discuss the management of the patient with other professionals (professionals i.e. , PA, SWITCHBOARD OPERATOR ASSISTANT, lab, RT, psych nurse, social studies department chair, projection welding machine operator, teacher, labor relations officer, disease case manager rn)? Give summary @ -No Was smoking cessation discussed for >3mins.? @ -No Was critical care preformed (if so, how long)? @ -No Were there social determinants of health that impacted care today? How? (Homelessness, low income, unemployed, alcoholism, drug addiction, transportation, low edu. Level, literacy, decrease access to med. care, shelter, rehab)? @ -No Was there de-escalation of care discussed even if they declined (Discuss DNR or withdrawal of care, Hospice)? DNR status @ -No What co-morbidities impacted this encounter? (DM, HTN, Smoking, COPD, CAD, Cancer, CVA, ARF, Chemo, Hep., AIDS, mental health diagnosis, sleep apnea, morbid obesity)? @ -renal transplant, dm Was patient admitted / discharged? Hospital course, mention meds given and route, prescriptions, significant lab abnormalities, going to OR and other pertinent info. @ -Discharge. Upon arrival patient was placed in room 25. Thorough history and physical exam is performed. IV access was established and he was given a liter bolus normal saline. Lab studies are conducted. He is able to provide a stool sample which is C. diff negative. Urinalysis was performed. Patient has been able to maintain his normal kidney function. Results of the testing are discussed with the patient. He will start a magnesium supplement over the next couple of days. He will also be allowed to take Imodium for his diarrhea. He needs to notify his care team that he is having symptoms and follow-up with them. Patient requires repeat laboratory studies to be performed within the week. Return to the emergency room for any new or worsening symptoms. Patient agreeable to plan he was discharged in stable condition Undiagnosed new problem with uncertain prognosis? @ -No Drug Therapy requiring intensive monitoring for toxicity (Heparin, Nitro, Insulin, Cardizem)? @ -No Were any procedures done? @ -No Diagnosis/symptom? @ -Acute diarrhea, acute hypomagnesemia, history of renal transplant Acute, or Chronic, or Acute on Chronic? @ -Acute Uncomplicated (without systemic symptoms) or Complicated (systemic symptoms)? @ -Complicated Side effects of treatment? @ -No Exacerbation, Progression, or Severe Exacerbation? @ -No Poses a threat to life or bodily function? How? (Chest pain, USA, DC, pneumonia, PE, COPD, DKA, ARF, appy, cholecystitis, CVA, Diverticulitis, Homicidal, Suicidal, threat to staff... and all critical care pts) @ -No - Lab Data Result diagrams: 02/07/23 17:00 02/07/23 17:00 Lab Results 02/07/23 02/07/23 02/07/23 Range/Units 15:56 17:00 17:00 WBC 9.6 (3.8-10.6) k/uL RBC 6.47 H (4.30-5.90) m/uL Hgb 18.2 H (13.0-17.5) gm/dL Hct 54.1 H (39.0-53.0) % MCV 83.7 (80.0-100.0) fL MCH 28.2 (25.0-35.0) pg MCHC 33.7 (31.0-37.0) g/dL RDW 14.5 (11.5-15.5) % Plt Count 142 L (150-450) k/uL MPV 10.0 Neutrophils % 76 % Lymphocytes % 13 % Monocytes % 6 % Eosinophils % 3 % Basophils % 0 % Neutrophils # 7.3 (1.3-7.7) k/uL Lymphocytes # 1.2 (1.0-4.8) k/uL Monocytes # 0.6 (0-1.0) k/uL Eosinophils # 0.3 (0-0.7) k/uL Basophils # 0.0 (0-0.2) k/uL Poikilocytosis Slight Sodium (137-145) mmol/L Potassium (3.5-5.1) mmol/L Chloride (98-107) mmol/L Carbon Dioxide (22-30) mmol/L Anion Gap mmol/L BUN (9-20) mg/dL Creatinine (0.66-1.25) mg/dL Est GFR (CKD-EPI)AfAm (>60 ml/min/1.73 sqM) Est GFR (CKD-EPI)NonAf (>60 ml/min/1.73 sqM) Glucose (74-99) mg/dL POC Glucose (mg/dL) 101 (70-110) mg/dL POC Glu Bedspring Assembler ID Martha Hinojosa Plasma Lactic Acid [place] (0.7-2.0) mmol/L Calcium (8.4-10.2) mg/dL Magnesium (1.6-2.3) mg/dL Total Bilirubin (0.2-1.3) mg/dL AST (17-59) U/L ALT (4-49) U/L Alkaline Phosphatase (38-126) U/L Total Protein (6.3-8.2) g/dL Albumin (3.5-5.0) g/dL Lipase (23-300) U/L TSH (0.465-4.680) mIU/L Urine Color Yellow Urine Appearance Cloudy (Clear) Urine pH 5.5 (5.0-8.0) Ur Specific [place] 1.022 (1.001-1.035) Urine Protein 1+ H (Negative) Urine Glucose (UA) 4+ H (Negative) Urine Ketones Negative (Negative) Urine Blood Negative (Negative) Urine Nitrite Negative (Negative) Urine Bilirubin Negative (Negative) Urine Urobilinogen <2.0 (<2.0) mg/dL Ur Leukocyte Esterase Negative (Negative) Urine RBC 3 (0-5) /hpf Urine WBC 7 H (0-5) /hpf Ur Squamous Epith Cells <1 (0-4) /hpf Hyaline Casts 10 H (0-2) /lpf Urine Mucus Moderate H (None) /hpf C. difficile (EIA) Intrp (Negative) 02/07/23 02/07/23 02/07/23 Range/Units 17:00 17:42 18:00 WBC (3.8-10.6) k/uL RBC (4.30-5.90) m/uL Hgb (13.0-17.5) gm/dL Hct (39.0-53.0) % MCV (80.0-100.0) fL MCH (25.0-35.0) pg MCHC (31.0-37.0) g/dL RDW (11.5-15.5) % Plt Count (150-450) k/uL MPV Neutrophils % % Lymphocytes % % Monocytes % % Eosinophils % % Basophils % % Neutrophils # (1.3-7.7) k/uL Lymphocytes # (1.0-4.8) k/uL Monocytes # (0-1.0) k/uL Eosinophils # (0-0.7) k/uL Basophils # (0-0.2) k/uL Poikilocytosis Sodium 137 (137-145) mmol/L Potassium 4.5 (3.5-5.1) mmol/L Chloride 104 (98-107) mmol/L Carbon Dioxide 20 L (22-30) mmol/L Anion Gap 13 mmol/L BUN 19 (9-20) mg/dL Creatinine 1.47 H (0.66-1.25) mg/dL Est GFR (CKD-EPI)AfAm 70 (>60 ml/min/1.73 sqM) Est GFR (CKD-EPI)NonAf 60 (>60 ml/min/1.73 sqM) Glucose 98 (74-99) mg/dL POC Glucose (mg/dL) (70-110) mg/dL POC Glu Bedspring Assembler ID Plasma Lactic Acid [place] 1.1 (0.7-2.0) mmol/L Calcium 9.3 (8.4-10.2) mg/dL Magnesium 1.3 L (1.6-2.3) mg/dL Total Bilirubin 1.9 H (0.2-1.3) mg/dL AST 31 (17-59) U/L ALT 24 (4-49) U/L Alkaline Phosphatase 89 (38-126) U/L Total Protein 8.2 (6.3-8.2) g/dL Albumin 4.8 (3.5-5.0) g/dL Lipase 131 (23-300) U/L TSH (0.465-4.680) mIU/L Urine Color Urine Appearance (Clear) Urine pH (5.0-8.0) Ur Specific [place] (1.001-1.035) Urine Protein (Negative) Urine Glucose (UA) (Negative) Urine Ketones (Negative) Urine Blood (Negative) Urine Nitrite (Negative) Urine Bilirubin (Negative) Urine Urobilinogen (<2.0) mg/dL Ur Leukocyte Esterase (Negative) Urine RBC (0-5) /hpf Urine WBC (0-5) /hpf Ur Squamous Epith Cells (0-4) /hpf Hyaline Casts (0-2) /lpf Urine Mucus (None) /hpf C. difficile (EIA) Intrp Negative (Negative) 02/07/23 Range/Units 18:24 WBC (3.8-10.6) k/uL RBC (4.30-5.90) m/uL Hgb (13.0-17.5) gm/dL Hct (39.0-53.0) % MCV (80.0-100.0) fL MCH (25.0-35.0) pg MCHC (31.0-37.0) g/dL RDW (11.5-15.5) % Plt Count (150-450) k/uL MPV Neutrophils % % Lymphocytes % % Monocytes % % Eosinophils % % Basophils % % Neutrophils # (1.3-7.7) k/uL Lymphocytes # (1.0-4.8) k/uL Monocytes # (0-1.0) k/uL Eosinophils # (0-0.7) k/uL Basophils # (0-0.2) k/uL Poikilocytosis Sodium (137-145) mmol/L Potassium (3.5-5.1) mmol/L Chloride (98-107) mmol/L Carbon Dioxide (22-30) mmol/L Anion Gap mmol/L BUN (9-20) mg/dL Creatinine (0.66-1.25) mg/dL Est GFR (CKD-EPI)AfAm (>60 ml/min/1.73 sqM) Est GFR (CKD-EPI)NonAf (>60 ml/min/1.73 sqM) Glucose (74-99) mg/dL POC Glucose (mg/dL) (70-110) mg/dL POC Glu Bedspring Assembler ID Plasma Lactic Acid [place] (0.7-2.0) mmol/L Calcium (8.4-10.2) mg/dL Magnesium (1.6-2.3) mg/dL Total Bilirubin (0.2-1.3) mg/dL AST (17-59) U/L ALT (4-49) U/L Alkaline Phosphatase (38-126) U/L Total Protein (6.3-8.2) g/dL Albumin (3.5-5.0) g/dL Lipase (23-300) U/L TSH 0.838 (0.465-4.680) mIU/L Urine Color Urine Appearance (Clear) Urine pH (5.0-8.0) Ur Specific [place] (1.001-1.035) Urine Protein (Negative) Urine Glucose (UA) (Negative) Urine Ketones (Negative) Urine Blood (Negative) Urine Nitrite (Negative) Urine Bilirubin (Negative) Urine Urobilinogen (<2.0) mg/dL Ur Leukocyte Esterase (Negative) Urine RBC (0-5) /hpf Urine WBC (0-5) /hpf Ur Squamous Epith Cells (0-4) /hpf Hyaline Casts (0-2) /lpf Urine Mucus (None) /hpf C. difficile (EIA) Intrp (Negative) Disposition Clinical Impression: Diarrhea, Kidney transplant recipient, Hypomagnesemia Disposition: HOME SELF-CARE Condition: Stable Instructions (If sedation given, give patient instructions): Acute Diarrhea (ED) Additional Instructions: You may take Imodium for your diarrhea but please let your transplant team know. Have repeat laboratory studies done to ensure that your magnesium is improving. Take 400 mg of magnesium a day. Follow a brat diet. Return for any new or worsening symptoms Is patient prescribed a controlled substance at d/c from ED?: No Referrals: Sahra Hurtado MD [Primary Care Provider] - 1-2 days Time of Disposition: 21:28
[2023-02-07 18:35] LABS: AST 31 U/L (17-59); Alkaline Phosphatase 89 U/L (38-126); Magnesium 1.3 mg/dL (1.6-2.3); Potassium 4.5 mmol/L (3.5-5.1)
[2023-02-07 21:56] VITALS: BP 147/98; PULSE 90; RESP 17
== END 2023-02-07 21:45 | disposition home or self-care (01) ==
LOC: EC 14:47
DX: R19.7 Diarrhea, unspecified (principal); E83.42 Hypomagnesemia; E11.22 Type 2 diabetes mellitus with diabetic chronic kidney disease; I12.0 Hypertensive chronic kidney disease with stage 5 chronic kidney disease or end stage renal disease; N18.6 End stage renal disease; E11.40 Type 2 diabetes mellitus with diabetic neuropathy, unspecified; E11.21 Type 2 diabetes mellitus with diabetic nephropathy; K21.9 Gastro-esophageal reflux disease without esophagitis; E78.5 Hyperlipidemia, unspecified; F32.A Depression, unspecified; Z79.4 Long term (current) use of insulin; Z79.82 Long term (current) use of aspirin; Z79.624 Long term (current) use of inhibitors of nucleotide synthesis; Z79.899 Other long term (current) drug therapy; Z99.2 Dependence on renal dialysis; Z94.0 Kidney transplant status; Z88.8 Allergy status to other drugs, medicaments and biological substances
CPT/HCPCS: 36415; 80053; 80197; 81001; 83605; 83690; 83735; 84443; 85025; 87324; 96360; 96361; 99284

== ENCOUNTER → 2023-02-27 | Outpatient (CLI) | payer BC, MEDICARE ==
--- NOTE | 2023-02-27 12:56 | US ---
EXAMINATION TYPE: US renal transplant w dop DATE OF EXAM: 02/27/2023 COMPARISON: 12/20/2019 CLINICAL INDICATION: Male, 37 years old with history of Z94.0 KIDNEY TRANSPLANT STATUS; EXAM PERFORMED: Grayscale on [place] kidneys and Doppler duplex and Grayscale imaging of the transplan [place]bi kidney. EXAM MEASUREMENTS: [place] Right Kidney: 6.6 x 3.6 x 3.3cm [place] Left Kidney: 7.8 x 3.9 x 3.4cm Both of these kidneys are atrophic and multiple echogenic foci throughout, largest measuring 9 mm. Th yoselin could represent prominent vascular reflectors, nonobstructive calculi, or vascular calcifications . No evident hydronephrosis. Transplant Kidney: 11.4 x 4.0 x 5.9cm with mild pelvicaliectasis. Location of transplanted kidney: Left pelvis Preserve renal artery waveforms. Peak systolic velocity approximately 35 cm/s. The transplant renal vein is patent with appropriate triphasic waveform. Bladder: Prominent initial distention of the bladder. Post Void Residual Volume: 40.2ml Bilateral Jets seen: no Normal Post Void Residual: yes IMPRESSION: 1. Atrophic bilateral [place] kidneys. 2. Right pelvic transplant kidney shows mild pelvicaliectasis which is probably transient. Follow-up can be considered if concern for developing hydronephrosis. 3. Patent transplant renal artery and renal vein. 4. Increased post void bladder volume of 40 mL still falls within acceptable limits.
== END | disposition home or self-care (01) ==
LOC: RADUSWWP 08:41
PROVIDERS: ATTEND Internal Medicine Nephrology
DX: N26.1 Atrophy of kidney (terminal) (principal); Z94.0 Kidney transplant status; Z94.83 Pancreas transplant status
CPT/HCPCS: 76776

== ENCOUNTER 2023-03-05 19:03 | Emergency (ER) | payer BC, MEDICARE ==
[2023-03-05 19:33] VITALS: TEMP 97.8
[2023-03-05] MEDS ORDERED: SODIUM CHLORIDE 0.9% 1,000 ML IV STA (19:38)
--- NOTE | 2023-03-05 19:47 | ED ---
Dizziness HPI - General Chief Complaint: Syncope Stated Complaint: Fall syncope Time Seen by Provider: 03/05/23 19:29 Source: patient Mode of arrival: wheelchair Limitations: no limitations - History of Present Illness Initial Comments: 37-year-old male presents with chief complaint of nausea vomiting and diarrhea. History of diabetes, renal transplant, hyperlipidemia, hypertension. Patient states that she had a tattoo appointment today, this evening he started to have nausea and vomiting. At one point the patient states that he "blacked out" for his partner. She came to the bathroom and found her lying on the floor, he then had another episode while she was holding him. He took his morning antirejection medication but has not taken his 9 PM dose. He denies abdominal pain, chest pain, difficulty breathing, neck pain, numbness, tingling, fevers. Patient has history of DKA. - Related Data Home Medications Medication Instructions Recorded Confirmed Omeprazole 20 mg PO BID 08/28/17 03/05/23 Aspirin EC [Ecotrin Low Dose] 81 mg PO DAILY 05/18/18 03/05/23 Atorvastatin [Lipitor] 40 mg PO HS 11/07/19 03/05/23 Calcium Citrate 250 mg PO DAILY 11/07/19 03/05/23 Tacrolimus [Envarsus Xr] 3 mg PO DIRECTED 11/07/19 03/05/23 mycophenolate mofetiL [Cellcept] 500 mg PO BID 11/07/19 03/05/23 predniSONE 5 mg PO DAILY 11/07/19 03/05/23 Cholecalciferol [Vitamin D3 (25 25 mcg PO DAILY 03/05/23 03/05/23 Mcg = 1000 Iu)] Insulin Aspart (For Pump) [NovoLOG 0.01 unit SQ-PUMP CONTINUOUS 03/05/23 03/05/23 (For Pump)] Midodrine HCl [ProAmatine] 10 mg PO BID 03/05/23 03/05/23 calcitrioL 0.25 mcg PO WESA 03/05/23 03/05/23 Allergies Allergy/AdvReac Type Severity Reaction Status Date / Time metoclopramide [From Reglan] Allergy ITCHY Verified 03/05/23 22:33 FEELING " Review of Systems ROS Statement: Those systems with pertinent positive or pertinent negative responses have been documented in the HPI. ROS Other: All systems not noted in ROS Statement are negative. Past Medical History Past Medical History: Diabetes Mellitus, Eye Disorder, GERD/Reflux, Hyperlipidemia, Hypertension, Renal Disease Additional Past Medical History / Comment(s): past DKA, neuropathy bilateral feet, diabetic nephropathy/ESRD with hemodialysis M/W/F pt planning establishing at [facility] for possible kidney transplant, diabetic retinopathy/bleeds bilaterally-pt legally blind, gastroparesis with botox treatment, esophagitis, hiatal hernia, gastrophoresis History of Any Multi-Drug Resistant Organisms: None Reported Past Surgical History: Hernia Repair Additional Past Surgical History / Comment(s): Vitrectomy right eye, 04/2017 bilateral laser eye surgery for retinal bleeds unsuccessful, eye injections, EGD, colonoscopy, dialysis cath placed rt upper chest on 12-03-17, graft rt forearm 10/06/18 for dialysis, L inguinal hernia repair, kidney transplant- left Past Anesthesia/Blood Transfusion Reactions: Postoperative Nausea & Vomiting (PONV) Additional Past Anesthesia/Blood Transfusion Reaction / Comment(s): clausterphobia, Pt has received multiple transfusions. Past Psychological History: Depression Smoking Status: Never smoker Past Alcohol Use History: Rare Past Drug Use History: None Reported - Past Family History Father Family Medical History: No Reported History Additional Family Medical History / Comment(s): Father is healthy Mother Family Medical History: No Reported History Additional Family Medical History / Comment(s): Mother is healthy. General Exam Limitations: no limitations General appearance: alert, in no apparent distress Head exam: Present: atraumatic, normocephalic Eye exam: Present: normal appearance, EOMI Neck exam: Present: normal inspection Respiratory exam: Present: normal lung sounds bilaterally. Absent: respiratory distress, wheezes, rales, rhonchi, stridor Cardiovascular Exam: Present: regular rate, normal rhythm, normal heart sounds. Absent: systolic murmur, diastolic murmur, rubs, gallop, clicks GI/Abdominal exam: Present: soft. Absent: distended, tenderness, guarding, rebound, rigid Neurological exam: Present: alert, oriented X3 Expanded Patient oriented to: Present: person, place, time Speech: Present: fluid speech Cranial nerves: EOM's Intact: Normal Eye Response: (4) open spontaneously Motor Response: (6) obeys commands Verbal Response: (5) oriented Nereyda Total: 15 Psychiatric exam: Present: normal affect, normal mood Skin exam: Present: warm, dry Course Vital Signs 03/05/23 03/05/23 03/05/23 19:22 20:10 20:45 Temperature 97.8 F Pulse Rate 112 H 92 91 Respiratory 18 16 12 Rate Blood Pressure 82/58 119/77 138/88 O2 Sat by Pulse 94 L 99 99 Oximetry 03/05/23 03/05/23 21:00 22:00 Temperature Pulse Rate 87 90 Respiratory 12 15 Rate Blood Pressure 138/88 126/87 O2 Sat by Pulse 99 96 Oximetry Medical Decision Making - Medical Decision Making Was pt. sent in by a medical professional or institution (, PA, AGRICULTURAL MECHANIC, urgent care, hospital, or fci...) When possible be specific @ -No Did you speak to anyone other than the patient for history (EMS, parent, family, police, friend...)? What history was obtained from this source @ -History supplemented by the patient's partner at bedside Did you review nursing and triage notes (agree or disagree)? Why? @ -I reviewed and agree with nursing and triage notes Were old charts reviewed (outside hosp., previous admission, EMS record, old EKG, old radiological studies, urgent care reports/EKG's, fci records)? Report findings @ -Previous visits reviewed Differential Diagnosis (chest pain, altered mental status, abdominal pain women, abdominal pain men, vaginal bleeding, weakness, fever, dyspnea, syncope, headache, dizziness, GI bleed, back pain, seizure, CVA, palpatations, mental hea lth, musculoskeletal)? @ -MDM Differential Syncope: Valvular disease, hypertrophic cardiomyopathy, pulmonary embolism, tamponade, tachycardia, bradycardia, NJ, hypovolemia, hemorrhage, dissection, anemia, intracranial hemorrhage, seizure, hypoglycemia, carbon monoxide poisoning this is not meant to be an all-inclusive list. EKG interpreted by me (3pts min.). @ -EKG shows sinus rhythm ventricular rate 91. AL interval 150. QRS 95. QT 312. QTc 361. J-point elevation is noted, likely early repolarization X-rays interpreted by me (1pt min.). @ -Chest x-ray shows no acute cardiopulmonary process CT interpreted by me (1pt min.). @ -CT shows no acute intracranial process or cervical spine fracture U/S interpreted by me (1pt. min.). @ -None done What testing was considered but not performed or refused? (CT, X-rays, U/S, labs)? Why? @ -None What meds were considered but not given or refused? Why? @ -None Did you discuss the management of the patient with other professionals (pro fessionals i.e. , PA, AGRICULTURAL MECHANIC, lab, RT, psych nurse, nephrology social worker, customer service receptionist, teacher, property utilization officer, telephonic case manager)? Give summary @ -No Was smoking cessation discussed for >3mins.? @ -No Was critical care preformed (if so, how long)? @ -No Were there social determinants of health that impacted care today? How? (Homelessness, low income, unemployed, alcoholism, drug addiction, transportation, low edu. Level, literacy, decrease access to med. care, skilled nursing, rehab)? @ -No Was there de-escalation of care discussed even if they declined (Discuss DNR or withdrawal of care, Hospice)? DNR status @ -No What co-morbidities impacted this encounter? (DM, HTN, Smoking, COPD, CAD, Cancer, CVA, ARF, Chemo, Hep., AIDS, mental health diagnosis, sleep apnea, morbid obesity)? @ -Diabetes, history of kidney transplant Was patient admitted / discharged? Hospital course, mention meds given and route, prescriptions, significant lab abnormalities, going to OR and other pertinent info. @ -37-year-old male presenting with chief complaint of nausea vomiting and diarrhea that started today. He had a syncopal episode while vomiting in the bathroom this evening. History of diabetes and kidney transplant. History and physical exam are conducted. WBC 18.7, likely reactive. Creatinine 1.64 BUN 25, slightly elevated from the patient's baseline. Urine shows no ketones. Negative troponin. Negative acetone. Negative for influenza, RSV, and COVID. No acute process seen on chest x-ray or CT brain and cervical spine without contrast. EKG shows sinus rhythm. Patient is initially hypotensive upon arriv al, likely due to a combination of volume loss and he missed his afternoon dose of midodrine due to his nausea and vomiting. He is given his 10 mg of midodrine as well as IV fluids and antiemetics. On reassessment he states that he feels significantly better. He has not vomited since being here. He will be discharged home, he is provided with an order form for repeat labs in 48 hours. Follow-up with PCP. Report back to ER with any new or worsening symptoms. Discussed return parameters and answered all questions. Patient conveyed verbal understanding and agreed to the plan. I discussed this case in detail with my attending Dr. Salcedo Undiagnosed new problem with uncertain prognosis? @ -No Drug Therapy requiring intensive monitoring for toxicity (Heparin, Nitro, Insulin, Cardizem)? @ -No Were any procedures done? @ -No Diagnosis/symptom? @ -Nausea vomiting and diarrhea, dehydration Acute, or Chronic, or Acute on Chronic? @ -Acute Uncomplicated (without systemic symptoms) or Complicated (systemic symptoms)? @ -Complicated Side effects of treatment? @ -No Exacerbation, Progression, or Severe Exacerbation? @ -No Poses a threat to life or bodily function? How? (Chest pain, USA, NJ, pneumonia, PE, COPD, DKA, ARF, appy, cholecystitis, CVA, Diverticulitis, Homicidal, Aguero icidal, threat to staff... and all critical care pts) @ -Low likelihood - Lab Data Result diagrams: 03/05/23 19:55 03/05/23 19:55 Lab Results 03/05/23 03/05/23 03/05/23 Range/Units 19:55 19:55 19:55 WBC 18.7 H (3.8-10.6) k/uL RBC 5.99 H (4.30-5.90) m/uL Hgb 17.0 (13.0-17.5) gm/dL Hct 50.9 (39.0-53.0) % MCV 85.0 (80.0-100.0) fL MCH 28.4 (25.0-35.0) pg MCHC 33.4 (31.0-37.0) g/dL RDW 14.1 (11.5-15.5) % Plt Count 156 (150-450) k/uL MPV 9.2 Neutrophils % 86 % Lymphocytes % 4 % Monocytes % 5 % Eosinophils % 3 % Basophils % 0 % Neutrophils # 16.1 H (1.3-7.7) k/uL Lymphocytes # 0.8 L (1.0-4.8) k/uL Monocytes # 1.0 (0-1.0) k/uL Eosinophils # 0.6 (0-0.7) k/uL Basophils # 0.0 (0-0.2) k/uL PT 10.5 (10.0-12.5) sec INR 0.9 (<1.2) APTT 20.3 L (22.0-30.0) sec Sodium (137-145) mmol/L Potassium (3.5-5.1) mmol/L Chloride (98-107) mmol/L Carbon Dioxide (22-30) mmol/L Anion Gap mmol/L BUN (9-20) mg/dL Creatinine (0.66-1.25) mg/dL Est GFR (CKD-EPI)AfAm (>60 ml/min/1.73 sqM) Est GFR (CKD-EPI)NonAf (>60 ml/min/1.73 sqM) Glucose (74-99) mg/dL Calcium (8.4-10.2) mg/dL Magnesium (1.6-2.3) mg/dL Total Bilirubin (0.2-1.3) mg/dL AST (17-59) U/L ALT (4-49) U/L Alkaline Phosphatase (38-126) U/L Troponin I (0.000-0.034) ng/mL Total Protein (6.3-8.2) g/dL Albumin (3.5-5.0) g/dL Urine Color Yellow Urine Appearance Clear (Clear) Urine pH 5.0 (5.0-8.0) Ur Specific [place] 1.028 (1.001-1.035) Urine Protein Trace H (Negative) Urine Glucose (UA) 3+ H (Negative) Urine Ketones Negative (Negative) Urine Blood Negative (Negative) Urine Nitrite Negative (Negative) Urine Bilirubin 1+ H (Negative) Urine Urobilinogen 3.0 (<2.0) mg/dL Ur Leukocyte Esterase Negative (Negative) Acetone, Qual (Negative) Influenza Type A (PCR) (Not Detectd) Influenza Type B (PCR) (Not Detectd) RSV (PCR) (Not Detectd) SARS-CoV-2 (PCR) (Not Detectd) 03/05/23 03/05/23 03/05/23 Range/Units 19:55 19:55 21:34 WBC (3.8-10.6) k/uL RBC (4.30-5.90) m/uL Hgb (13.0-17.5) gm/dL Hct (39.0-53.0) % MCV (80.0-100.0) fL MCH (25.0-35.0) pg MCHC (31.0-37.0) g/dL RDW (11.5-15.5) % Plt Count (150-450) k/uL MPV Neutrophils % % Lymphocytes % % Monocytes % % Eosinophils % % Basophils % % Neutrophils # (1.3-7.7) k/uL Lymphocytes # (1.0-4.8) k/uL Monocytes # (0-1.0) k/uL Eosinophils # (0-0.7) k/uL Basophils # (0-0.2) k/uL PT (10.0-12.5) sec INR (<1.2) APTT (22.0-30.0) sec Sodium 140 (137-145) mmol/L Potassium 4.5 (3.5-5.1) mmol/L Chloride 105 (98-107) mmol/L Carbon Dioxide 23 (22-30) mmol/L Anion Gap 12 mmol/L BUN 25 H (9-20) mg/dL Creatinine 1.64 H (0.66-1.25) mg/dL Est GFR (CKD-EPI)AfAm 61 (>60 ml/min/1.73 sqM) Est GFR (CKD-EPI)NonAf 53 (>60 ml/min/1.73 sqM) Glucose 142 H (74-99) mg/dL Calcium 10.5 H (8.4-10.2) mg/dL Magnesium 1.5 L (1.6-2.3) mg/dL Total Bilirubin 1.3 (0.2-1.3) mg/dL AST 22 (17-59) U/L ALT 26 (4-49) U/L Alkaline Phosphatase 99 (38-126) U/L Troponin I <0.012 (0.000-0.034) ng/mL Total Protein 7.7 (6.3-8.2) g/dL Albumin 4.6 (3.5-5.0) g/dL Urine Color Urine Appearance (Clear) Urine pH (5.0-8.0) Ur Specific [place] (1.001-1.035) Urine Protein (Negative) Urine Glucose (UA) (Negative) Urine Ketones (Negative) Urine Blood (Negative) Urine Nitrite (Negative) Urine Bilirubin (Negative) Urine Urobilinogen (<2.0) mg/dL Ur Leukocyte Esterase (Negative) Acetone, Qual Negative (Negative) Influenza Type A (PCR) Not Detected (Not Detectd) Influenza Type B (PCR) Not Detected (Not Detectd) RSV (PCR) Not Detected (Not Detectd) SARS-CoV-2 (PCR) Not Detected (Not Detectd) Disposition Clinical Impression: Nausea vomiting and diarrhea, Dehydration, Vasovagal syncope Disposition: HOME SELF-CARE Condition: Good Instructions (If sedation given, give patient instructions): Dehydration (ED), Syncope (ED), Acute Nausea and Vomiting (ED), Acute Diarrhea (ED) Additional Instructions: Follow-up with PCP. Report back to ER with any new or worsening symptoms. Obtain repeat labs in 2 days Is patient prescribed a controlled substance at d/c from ED?: No Referrals: Sahra Hurtado MD [Primary Care Provider] - 1-2 days Time of Disposition: 22:28
[2023-03-05] MEDS ORDERED: ONDANSETRON 4 MG/2 ML VIAL IVP STA (20:07)
[2023-03-05 20:08] LABS: Basophils % (A) 0 %; Eosinophils # (A) 0.6 k/uL (0-0.7); Eosinophils % (A) 3 %; HCT 50.9 % (39.0-53.0); Lymphocytes # (A) 0.8 k/uL (1.0-4.8); Lymphocytes % (A) 4 %; MCH 28.4 pg (25.0-35.0); MCHC 33.4 g/dL (31.0-37.0); Mean Platelet Volume 9.2; Monocytes % (A) 5 %; Neutrophils # (A) 16.1 k/uL (1.3-7.7); Neutrophils % (A) 86 %; Platelet Count 156 k/uL (150-450); RBC 5.99 m/uL (4.30-5.90); RDW 14.1 % (11.5-15.5); WBC 18.7 k/uL (3.8-10.6)
[2023-03-05] MEDS ORDERED: MIDODRINE 5 MG TAB PO STA (20:10)
[2023-03-05 20:22] LABS: INR 0.9 (<1.2); Prothrombin Time 10.5 sec (10.0-12.5)
[2023-03-05 20:36] LABS: ALT 26 U/L (4-49); AST 22 U/L (17-59); African American GFR (CKD) 61 (>60 ml/min/1.73 sqM); Albumin 4.6 g/dL (3.5-5.0); Alkaline Phosphatase 99 U/L (38-126); Anion Gap 12 mmol/L; Blood Urea Nitrogen 25 mg/dL (9-20); Calcium 10.5 mg/dL (8.4-10.2); Carbon Dioxide 23 mmol/L (22-30); Chloride 105 mmol/L (98-107); Glucose 142 mg/dL (74-99); Magnesium 1.5 mg/dL (1.6-2.3); Non-African American GFR(CKD) 53 (>60 ml/min/1.73 sqM); Potassium 4.5 mmol/L (3.5-5.1); Sodium 140 mmol/L (137-145); Total Bilirubin 1.3 mg/dL (0.2-1.3); Total Protein 7.7 g/dL (6.3-8.2)
--- NOTE | 2023-03-05 20:37 | XR ---
EXAMINATION TYPE: XR chest 2V DATE OF EXAM: 03/05/2023 8:27 PM CLINICAL INDICATION:Male, 37 years old with history of syncope; COMPARISON: Chest radiographs from 10/15/2020 TECHNIQUE: XR chest 2V Frontal and lateral views of the chest. FINDINGS: Lungs/Pleura: There is no evidence of pleural effusion, focal consolidation, or pneumothorax. Pulmonary vascularity: Unremarkable. Heart/mediastinum: Cardiomediastinal silhouette is unremarkable. Musculoskeletal: No acute osseous pathology. Other findings: None IMPRESSION: No acute cardiopulmonary disease/process.
[2023-03-05] MEDS ORDERED: MAGNESIUM SULFATE-D5W PMX 1 GM in DEXTROSE/WATER 1 100ML.BAG IVPB ONE (20:43)
[2023-03-05 20:46] LABS: Appearance,Urine Clear (Clear); Bilirubin,Urine 1+ (Negative); Blood,Urine Negative (Negative); Color,Urine Yellow; Glucose,Urine (UA) 3+ (Negative); Ketones,Urine Negative (Negative); Leukocyte Esterase,Urine Negative (Negative); Nitrite,Urine Negative (Negative); Partial Thromboplastin Time 20.3 sec (22.0-30.0); Protein,Urine Trace (Negative); Specific Gravity,Urine 1.028 (1.001-1.035)
--- NOTE | 2023-03-05 20:50 | CT ---
EXAMINATION TYPE: CT brain cspine wo con CT DLP: 1377.7 mGycm, Automated exposure control for dose reduction was used. DATE OF EXAM: 03/05/2023 8:27 PM COMPARISON: None. CLINICAL INDICATION:Male, 37 years old with history of syncope; Syncope, patient states that he black ed out and unsure if he hit back of head on the floor or tub. TECHNIQUE: Brain: Multiple axial CT images of the brain were obtained without IV contrast. Cspine: Axial CT images from the skull base to the inferior aspect of T2 we obtained without intraven ous contrast. Coronal and sagittal reformatted images were also reviewed. FINDINGS: Brain: Extra-axial spaces: No abnormal extra-axial fluid collections. Ventricular system: Within normal limits Cerebral parenchyma: No acute intraparenchymal hemorrhage or mass effect. The lee-white junction is well differentiated. Cerebellum: Unremarkable. Mass effect: No evidence of midline shift. Intracranial vasculature: unremarkable Soft tissues: Normal. Calvarium/osseous structures: No depressed skull fracture. Paranasal sinuses and mastoid air cells: Left mastoid air cell effusion. Nodular mucosal thickening t hroughout the paranasal sinuses. Visualized orbits: Orbital contents are intact. Cervical spine: Fracture: None. Osseous structures: Unremarkable Vertebral alignment: Within normal limits. Spinal canal/Neural Foramina: No evidence of significant spinal canal narrowing. No evidence for sign ificant neural foraminal stenosis. Neck soft tissues: Prevertebral soft tissues are within normal limits. Other: The airway is patent. The lung apices are clear. IMPRESSION: 1. No acute intracranial process. 2. No evidence of cervical spine fracture. 3. Mild multilevel degenerative disc disease. 4. Mild paranasal sinus disease with left mastoid air cell effusion.
[2023-03-05] MEDS ORDERED: ONDANSETRON 4 MG ODT STARTER PACK 2 TAB BTL PO STA (22:43)
[2023-03-05 22:57] VITALS: BP 126/87; PULSE 90; RESP 15
== END 2023-03-05 22:50 | disposition home or self-care (01) ==
LOC: EC 19:03
DX: E86.0 Dehydration (principal); R55 Syncope and collapse; E11.22 Type 2 diabetes mellitus with diabetic chronic kidney disease; I12.0 Hypertensive chronic kidney disease with stage 5 chronic kidney disease or end stage renal disease; E78.5 Hyperlipidemia, unspecified; N18.6 End stage renal disease; K21.9 Gastro-esophageal reflux disease without esophagitis; Z99.2 Dependence on renal dialysis; Z79.899 Other long term (current) drug therapy; Z79.82 Long term (current) use of aspirin; Z20.822 Contact with and (suspected) exposure to COVID-19; Z79.4 Long term (current) use of insulin; Z88.8 Allergy status to other drugs, medicaments and biological substances
CPT/HCPCS: 36415; 93005; 80053; 82009; 83735; 84484; 85025; 85610; 85730; 81003; 87636; 71046; 72125; 70450; 99285; 96365; 96361; J3475; S0119

== ENCOUNTER → 2023-03-18 | Outpatient (CLI) | payer BC, MEDICARE ==
[2023-03-18 15:24] LABS: Basophils # (A) 0.07 X 10*3/uL (0.00-0.10); Basophils % (A) 0.8 %; Eosinophils # (A) 0.88 X 10*3/uL (0.04-0.35); Eosinophils % (A) 10.6 %; HCT 47.5 % (39.6-50.0); HGB 15.4 g/dL (13.0-17.0); Lymphocytes # (A) 1.83 X 10*3/uL (0.90-5.00); MCH 27.4 pg (27.0-32.0); MCHC 32.4 g/dL (32.0-37.0); MCV 84.4 FL (80.0-97.0); Mean Platelet Volume 12.7 FL (9.5-12.2); Monocytes # (A) 0.52 X 10*3/uL (0.20-1.00); Monocytes % (A) 6.3 %; NRBC Per 100 WBC 0 X 10*3/uL (0.00-0.01); Neutrophils # (A) 4.97 X 10*3/uL (1.80-7.70); Neutrophils % (A) 59.9 %; Platelet Count 172 X 10*3/uL (140-440); RBC 5.63 X 10*6/uL (4.40-5.60); RDW 13.9 % (11.5-14.5)
[2023-03-18 15:50] LABS: ALT 24 U/L (10-49); AST 20 U/L (14-35); Albumin 4.2 g/dL (3.8-4.9); Albumin/Globulin Ratio 1.83 Ratio (1.60-3.17); Alkaline Phosphatase 98 U/L (41-126); BUN/Creat Ratio 12.31 Ratio (12.00-20.00); C Reactive Protein <0.30 mg/dL (0.00-0.80); Calcium 9.9 mg/dL (8.7-10.3); Chloride 108 mmol/L (96-109); Globulin 2.3 g/dL (1.6-3.3); Glucose 107 mg/dL (70-110); Potassium 4.4 mmol/L (3.5-5.5); Sodium 145 mmol/L (135-145); Total Bilirubin 0.8 mg/dL (0.3-1.2); Total Protein 6.5 g/dL (6.2-8.2)
[2023-03-18 16:37] LABS: Erythrocyte Sedimentation Rate 1 mm/Hr (0-15)
[2023-03-19 04:56] LABS: Gliadin AB IgA, Deaminated Negative (Negative); Gliadin AB IgA, Unit 0.8 U/mL; Gliadin AB IgG, Deaminated Negative (Negative); Gliadin AB IgG, Unit <0.4 U/mL
== END | disposition home or self-care (01) ==
LOC: LABWHC1 10:21
PROVIDERS: ATTEND Internal Medicine Gastroenterology
DX: K52.9 Noninfective gastroenteritis and colitis, unspecified (principal)
CPT/HCPCS: 36415; 80053; 82656; 83516; 85025; 85652; 86140

== ENCOUNTER → 2023-04-04 | Outpatient (CLI) | payer BC, MEDICARE ==
[2023-04-04 09:15] LABS: Creatinine,Urine Random 49.8 mg/dL; Protein/Creatinine Ratio,Urine 0.261
[2023-04-04 10:45] LABS: Basophils # (A) 0.05 X 10*3/uL (0.00-0.10); Basophils % (A) 0.7 %; Eosinophils # (A) 0.96 X 10*3/uL (0.04-0.35); Eosinophils % (A) 13.1 %; HCT 42.2 % (39.6-50.0); HGB 14.2 g/dL (13.0-17.0); Lymphocytes # (A) 1.89 X 10*3/uL (0.90-5.00); Lymphocytes % (A) 25.8 %; MCH 28.5 pg (27.0-32.0); MCHC 33.6 g/dL (32.0-37.0); MCV 84.6 FL (80.0-97.0); Monocytes # (A) 0.52 X 10*3/uL (0.20-1.00); Monocytes % (A) 7.1 %; NRBC Per 100 WBC 0 X 10*3/uL (0.00-0.01); Neutrophils # (A) 3.88 X 10*3/uL (1.80-7.70); Platelet Count 166 X 10*3/uL (140-440); RBC 4.99 X 10*6/uL (4.40-5.60); RDW 14.1 % (11.5-14.5); WBC 7.32 X 10*3/uL (4.50-10.00)
[2023-04-04 11:34] LABS: Microalbumin Creatinine Ratio <24 mg/g Cr (0-30); Urine Creatinine 50.8 mg/dL (39.0-259.0)
[2023-04-04 12:00] LABS: % Iron Saturation 27.04 (15.00-50.00); Albumin 4.2 g/dL (3.8-4.9); BUN/Creat Ratio 15.08 Ratio (12.00-20.00); Blood Urea Nitrogen 19.6 mg/dL (9.0-27.0); Calcium 9.5 mg/dL (8.7-10.3); Chloride 106 mmol/L (96-109); Ferritin 89.4 ng/mL (22.0-322.0); Glucose 110 mg/dL (70-110); Iron 86 UG/DL (65-175); Magnesium 1.6 mg/dL (1.5-2.4); Phosphorus 4.7 mg/dL (2.4-5.1); Potassium 4.3 mmol/L (3.5-5.5); Sodium 141 mmol/L (135-145); Total Iron Binding Capacity 318 UG/DL (228-460); Uric Acid 5.5 mg/dL (3.7-8.7)
[2023-04-04 13:44] LABS: Appearance,Urine Clear (Clear); Bilirubin,Urine Negative (Negative); Blood,Urine Negative (Negative); Color,Urine Yellow (Yellow); Ketones,Urine Negative (Negative); Nitrite,Urine Negative (Negative); PH, Urine 5.5; Specific Gravity,Urine 1.018 (1.001-1.030)
== END | disposition home or self-care (01) ==
LOC: LABWHC1 07:06
PROVIDERS: ATTEND Internal Medicine Nephrology
DX: N25.81 Secondary hyperparathyroidism of renal origin (principal); Z94.83 Pancreas transplant status; Z94.0 Kidney transplant status
CPT/HCPCS: 36415; 80048; 80069; 81003; 82043; 82306; 82570; 82728; 83540; 83550; 83735; 83970; 84156; 84550; 85025

== ENCOUNTER 2023-04-18 10:48 | Emergency (ER) | payer BC, MEDICARE ==
--- NOTE | 2023-04-18 11:38 | ED ---
Nausea/Vomiting/Diarrhea HPI - General Chief complaint: Nausea/Vomiting/Diarrhea Stated complaint: Abdominal Pain Time Seen by Provider: 04/18/23 11:18 Source: patient, RN notes reviewed Mode of arrival: ambulatory Limitations: no limitations - History of Present Illness Initial comments: 37-year-old male with past medical history of type 1 diabetes with an insulin pump, gastroparesis, and kidney transplant, to the ED with a chief complaint of nausea, vomiting, diarrhea. States his symptoms started last night with multiple bouts of emesis and diarrhea. Patient denies blood and mucus in stool and denies hememesis. Patient also states that he felt feverish last night, but did not check his temperature. Denies cough, congestion. Has been having ongoing GI upset/symptoms, and is following with a analog ic design engineer with a scheduled colonoscopy next month. - Related Data Home Medications Medication Instructions Recorded Confirmed Omeprazole 20 mg PO BID 08/28/17 04/18/23 Aspirin EC [Ecotrin Low Dose] 81 mg PO DAILY 05/18/18 04/18/23 Atorvastatin [Lipitor] 40 mg PO HS 11/07/19 04/18/23 Tacrolimus [Envarsus Xr] 3 mg PO DAILY 11/07/19 04/18/23 mycophenolate mofetiL [Cellcept] 500 mg PO BID 11/07/19 04/18/23 predniSONE 5 mg PO DAILY 11/07/19 04/18/23 Cholecalciferol [Vitamin D3 (25 50 mcg PO DAILY 03/05/23 04/18/23 Mcg = 1000 Iu)] Insulin Aspart (For Pump) [NovoLOG 0.01 unit SQ-PUMP CONTINUOUS 03/05/23 04/18/23 (For Pump)] Midodrine HCl [ProAmatine] 10 mg PO TID 03/05/23 04/18/23 calcitrioL 0.25 mcg PO WESA 03/05/23 04/18/23 Glucagon [Baqsimi] 1 spray NASAL DIRECTED PRN 04/18/23 04/18/23 Loratadine [Claritin] 10 mg PO DAILY 04/18/23 04/18/23 Ondansetron Odt [Zofran Odt] 8 mg PO TID PRN 04/18/23 04/18/23 Allergies Allergy/AdvReac Type Severity Reaction Status Date / Time metoclopramide [From Reglan] Allergy ITCHY Verified 04/18/23 13:09 FEELING " Review of Systems ROS Statement: Those systems with pertinent positive or pertinent negative responses have been documented in the HPI. ROS Other: All systems not noted in ROS Statement are negative. Past Medical History Past Medical History: Diabetes Mellitus, Eye Disorder, GERD/Reflux, Hyperlipidemia, Hypertension, Renal Disease Additional Past Medical History / Comment(s): past DKA, neuropathy bilateral feet, diabetic nephropathy/ESRD with hemodialysis M/W/F pt planning establishing at [facility] for possible kidney transplant, diabetic retinopathy/bleeds bilaterally-pt legally blind, gastroparesis with botox treatment, esophagitis, hiatal hernia, gastrophoresis History of Any Multi-Drug Resistant Organisms: None Reported Past Surgical History: Hernia Repair Additional Past Surgical History / Comment(s): Vitrectomy right eye, 04/2017 bilateral laser eye surgery for retinal bleeds unsuccessful, eye injections, EGD, colonoscopy, dialysis cath placed rt upper chest on 12-03-17, graft rt forearm 10/06/18 for dialysis, L inguinal hernia repair, kidney transplant- left Past Anesthesia/Blood Transfusion Reactions: Postoperative Nausea & Vomiting (PONV) Additional Past Anesthesia/Blood Transfusion Reaction / Comment(s): clausterphobia, Pt has received multiple transfusions. Past Psychological History: Depression Smoking Status: Never smoker Past Alcohol Use History: Rare Past Drug Use History: None Reported - Past Family History Father Family Medical History: No Reported History Additional Family Medical History / Comment(s): Father is healthy Mother Family Medical History: No Reported History Additional Family Medical History / Comment(s): Mother is healthy. General Exam Limitations: no limitations General appearance: in no apparent distress, other (ill appearing) Head exam: Present: atraumatic, normocephalic, normal inspection Eye exam: Present: normal appearance, PERRL, EOMI. Absent: scleral icterus, conjunctival injection, periorbital swelling ENT exam: Present: normal exam, mucous membranes moist Neck exam: Present: normal inspection. Absent: tenderness, meningismus, lymphadenopathy Respiratory exam: Present: normal lung sounds bilaterally. Absent: respiratory distress, wheezes, rales, rhonchi, stridor Cardiovascular Exam: Present: regular rate, normal rhythm, tachycardia GI/Abdominal exam: Present: soft, normal bowel sounds. Absent: distended, tenderness, guarding Extremities exam: Present: normal inspection, full ROM, normal capillary refill. Absent: tenderness, pedal edema, joint swelling, calf tenderness Back exam: Present: normal inspection Neurological exam: Present: alert, oriented X3, CN II-XII intact Psychiatric exam: Present: normal affect, normal mood Skin exam: Present: warm, dry, intact, normal color. Absent: rash Course Vital Signs 04/18/23 04/18/23 04/18/23 11:15 12:30 14:00 Temperature 100.8 F H 101.4 F H 99.8 F H Pulse Rate 113 H 115 H Respiratory 18 18 Rate Blood Pressure 103/62 126/77 O2 Sat by Pulse 99 97 Oximetry Medical Decision Making - Medical Decision Making Was pt. sent in by a medical professional or institution (, PA, DATABASE DBA, urgent care, hospital, or [facility]...) When possible be specific @ -No Did you speak to anyone other than the patient for history (EMS, parent, family, police, friend...)? What history was obtained from this source @ -No Did you review nursing and triage notes (agree or disagree)? Why? @ -I reviewed and agree with nursing and triage notes Were old charts reviewed (outside hosp., previous admission, EMS record, old EKG, old radiological studies, urgent care reports/EKG's, [facility] records)? Report findings @ -No old charts were reviewed Differential Diagnosis (chest pain, altered mental status, abdominal pain women, abdominal pain men, vaginal bleeding, weakness, fever, dyspnea, syncope, headache, dizziness, GI bleed, back pain, seizure, CVA, palpatations, mental health, musculoskeletal)? @ -Differential Abdominal Pain Men: Appendicitis, cholecystitis, diverticulosis, ischemic bowel, pancreatitis, hepatitis, UTI, gastroenteritis, AAA, incarcerated hernia, bowel obstruction, constipation, inflammatory bowel, hepatitis, peptic ulcer disease, splenic infarction, perforated viscus, testicular torsion, this is not meant to be an all-inclusive list EKG interpreted by me (3pts min.). @ -None X-rays interpreted by me (1pt min.). @ -None done CT interpreted by me (1pt min.). @ -None done U/S interpreted by me (1pt. min.). @ -None done What testing was considered but not performed or refused? (CT, X-rays, U/S, labs)? Why? @ -None What meds were considered but not given or refused? Why? @ -None Did you discuss the management of the patient with other professionals (professionals i.e. , PA, DATABASE DBA, lab, RT, psych nurse, social sciences lecturer, audiology director, teacher, protocol officer, adult protective caseworker)? Give summary @ -No Was smoking cessation discussed for >3mins.? @ -No Was critical care preformed (if so, how long)? @ -No Were there social determinants of health that impacted care today? How? (Homelessness, low income, unemployed, alcoholism, drug addiction, pettit sportation, low edu. Level, literacy, decrease access to med. care, alf, rehab)? @ -No Was there de-escalation of care discussed even if they declined (Discuss DNR or withdrawal of care, Hospice)? DNR status @ -No What co-morbidities impacted this encounter? (DM, HTN, Smoking, COPD, CAD, Cancer, CVA, ARF, Chemo, Hep., AIDS, mental health diagnosis, sleep apnea, morbid obesity)? @ -DM Was patient admitted / discharged? Hospital course, mention meds given and route, prescriptions, significant lab abnormalities, going to OR and other pertinent info. @ -37-year-old male presents with chief complaint of vomiting and diarrhea. Given 1000 mL fluid bolus and IV droperidol. Patient states that nausea has improved since administration. CMP remarkable for chloride 111, magnesium 1.2, glucose 110, BUN 21. Discharged. Patient given 1 g IV magnesium and second 1000 mL fluid bolus. Repeat vitals revealed temperature of 101.4, 600 mg PO motrin given. UA results 3+ glucose, negative for ketones. Patient's symptoms are markedly improved since administration of IVF and antiemetics. Symptoms are likely secondary to gastroparesis and viral gastroenteritis. continue at home magnesium supplementation. Patient to monitor temperature at home multiple times per day and continue with Tylenol and Motrin. Instruct patient to follow- up with PCP early next week. new diagnosis with uncertain prognosis? @ -No therapy requiring intensive monitoring for toxicity (Heparin, Nitro, Insulin, Cardizem)? @ -No Were any procedures done? @ -No Diagnosis/symptom? @ -Gastroenteritis, gastroparesis Acute, or Chronic, or Acute on Chronic? @ -Acute Uncomplicated (without systemic symptoms) or Complicated (systemic symptoms)? @ -Uncomplicated Side effects of treatment? @ -No Exacerbation, Progression, or Severe Exacerbation? @ -No Poses a threat to life or bodily function? How? (Chest pain, USA, ND, pneumonia, PE, COPD, DKA, ARF, appy, cholecystitis, CVA, Diverticulitis, Homicidal, Suicidal, threat to staff... and all critical care pts) @ -No - Lab Data Result diagrams: 04/18/23 11:45 04/18/23 11:45 Lab Results 04/18/23 04/18/23 04/18/23 Range/Units 11:45 11:45 11:45 WBC 10.2 (3.8-10.6) k/uL RBC 5.19 (4.30-5.90) m/uL Hgb 14.9 (13.0-17.5) gm/dL Hct 44.4 (39.0-53.0) % MCV 85.6 (80.0-100.0) fL MCH 28.8 (25.0-35.0) pg MCHC 33.6 (31.0-37.0) g/dL RDW 14.3 (11.5-15.5) % Plt Count 126 L (150-450) k/uL MPV 9.9 Neutrophils % 87 % Lymphocytes % 3 % Monocytes % 4 % Eosinophils % 5 % Basophils % 0 % Neutrophils # 8.9 H (1.3-7.7) k/uL Lymphocytes # 0.3 L (1.0-4.8) k/uL Monocytes # 0.4 (0-1.0) k/uL Eosinophils # 0.5 (0-0.7) k/uL Basophils # 0.0 (0-0.2) k/uL Sodium 140 (137-145) mmol/L Potassium 4.5 (3.5-5.1) mmol/L Chloride 111 H (98-107) mmol/L Carbon Dioxide 20 L (22-30) mmol/L Anion Gap 9 mmol/L BUN 21 H (9-20) mg/dL Creatinine 1.23 (0.66-1.25) mg/dL Est GFR (CKD-EPI)AfAm 87 (>60 ml/min/1.73 sqM) Est GFR (CKD-EPI)NonAf 75 (>60 ml/min/1.73 sqM) Glucose 110 H (74-99) mg/dL POC Glucose (mg/dL) (70-110) mg/dL POC Glu Maintenance Shop Manager ID Calcium 9.5 (8.4-10.2) mg/dL Magnesium 1.2 L (1.6-2.3) mg/dL Total Bilirubin 1.6 H (0.2-1.3) mg/dL AST 29 (17-59) U/L ALT 34 (4-49) U/L Alkaline Phosphatase 94 (38-126) U/L Total Protein 6.8 (6.3-8.2) g/dL Albumin 4.3 (3.5-5.0) g/dL Lipase 66 (23-300) U/L Urine Color Urine Appearance (Clear) Urine pH (5.0-8.0) Ur Specific Tovey (1.001-1.035) Urine Protein (Negative) Urine Glucose (UA) (Negative) Urine Ketones (Negative) Urine Blood (Negative) Urine Nitrite (Negative) Urine Bilirubin (Negative) Urine Urobilinogen (<2.0) mg/dL Ur Leukocyte Esterase (Negative) Influenza Type A (PCR) Not Detected (Not Detectd) Influenza Type B (PCR) Not Detected (Not Detectd) RSV (PCR) Not Detected (Not Detectd) SARS-CoV-2 (PCR) Not Detected (Not Detectd) 04/18/23 04/18/23 Range/Units 11:45 12:37 WBC (3.8-10.6) k/uL RBC (4.30-5.90) m/uL Hgb (13.0-17.5) gm/dL Hct (39.0-53.0) % MCV (80.0-100.0) fL MCH (25.0-35.0) pg MCHC (31.0-37.0) g/dL RDW (11.5-15.5) % Plt Count (150-450) k/uL MPV Neutrophils % % Lymphocytes % % Monocytes % % Eosinophils % % Basophils % % Neutrophils # (1.3-7.7) k/uL Lymphocytes # (1.0-4.8) k/uL Monocytes # (0-1.0) k/uL Eosinophils # (0-0.7) k/uL Basophils # (0-0.2) k/uL Sodium (137-145) mmol/L Potassium (3.5-5.1) mmol/L Chloride (98-107) mmol/L Carbon Dioxide (22-30) mmol/L Anion Gap mmol/L BUN (9-20) mg/dL Creatinine (0.66-1.25) mg/dL Est GFR (CKD-EPI)AfAm (>60 ml/min/1.73 sqM) Est GFR (CKD-EPI)NonAf (>60 ml/min/1.73 sqM) Glucose (74-99) mg/dL POC Glucose (mg/dL) 94 (70-110) mg/dL POC Glu Maintenance Shop Manager ID Rene Beltre Calcium (8.4-10.2) mg/dL Magnesium (1.6-2.3) mg/dL Total Bilirubin (0.2-1.3) mg/dL AST (17-59) U/L ALT (4-49) U/L Alkaline Phosphatase (38-126) U/L Total Protein (6.3-8.2) g/dL Albumin (3.5-5.0) g/dL Lipase (23-300) U/L Urine Color Light Yellow Urine Appearance Clear (Clear) Urine pH 5.0 (5.0-8.0) Ur Specific Tovey 1.019 (1.001-1.035) Urine Protein Trace H (Negative) Urine Glucose (UA) 3+ H (Negative) Urine Ketones Negative (Negative) Urine Blood Negative (Negative) Urine Nitrite Negative (Negative) Urine Bilirubin Negative (Negative) Urine Urobilinogen <2.0 (<2.0) mg/dL Ur Leukocyte Esterase Negative (Negative) Influenza Type A (PCR) (Not Detectd) Influenza Type B (PCR) (Not Detectd) RSV (PCR) (Not Detectd) SARS-CoV-2 (PCR) (Not Detectd) Disposition Clinical Impression: Gastroparesis due to DM, Vomiting, Gastroenteritis Narrative: Please return to the Emergency Department if symptoms worsen or any other concerns. Patient to continue at home oral magnesium supplementation to correct hypomagnesemia. Disposition: HOME SELF-CARE Condition: Good Instructions (If sedation given, give patient instructions): Gastroenteritis (ED) Is patient prescribed a controlled substance at d/c from ED?: No Referrals: Sahra Hurtado MD [Primary Care Provider] - 1-2 days Time of Disposition: 14:50
[2023-04-18] MEDS: SODIUM CHLORIDE 0.9% 1,000 ML IV STA ×2 (11:40→13:19)
[2023-04-18] MEDS: droPERidol 5 MG/2 ML VIAL IVP ONE (11:43)
[2023-04-18 11:46] VITALS: RESP 18
[2023-04-18] MEDS: ACETAMINOPHEN TAB 325 MG TAB PO STA (11:47)
[2023-04-18 11:58] LABS: Basophils % (A) 0 %; Eosinophils # (A) 0.5 k/uL (0-0.7); Eosinophils % (A) 5 %; HCT 44.4 % (39.0-53.0); HGB 14.9 gm/dL (13.0-17.5); Lymphocytes # (A) 0.3 k/uL (1.0-4.8); Lymphocytes % (A) 3 %; MCH 28.8 pg (25.0-35.0); MCHC 33.6 g/dL (31.0-37.0); MCV 85.6 fL (80.0-100.0); Mean Platelet Volume 9.9; Monocytes # (A) 0.4 k/uL (0-1.0); Monocytes % (A) 4 %; Neutrophils # (A) 8.9 k/uL (1.3-7.7); Neutrophils % (A) 87 %; Platelet Count 126 k/uL (150-450); RBC 5.19 m/uL (4.30-5.90); RDW 14.3 % (11.5-15.5); WBC 10.2 k/uL (3.8-10.6)
[2023-04-18 12:18] LABS: Chloride 111 mmol/L (98-107)
[2023-04-18 12:19] LABS: Potassium 4.5 mmol/L (3.5-5.1)
[2023-04-18 12:20] LABS: ALT 34 U/L (4-49); AST 29 U/L (17-59); African American GFR (CKD) 87 (>60 ml/min/1.73 sqM); Albumin 4.3 g/dL (3.5-5.0); Alkaline Phosphatase 94 U/L (38-126); Anion Gap 9 mmol/L; Blood Urea Nitrogen 21 mg/dL (9-20); Calcium 9.5 mg/dL (8.4-10.2); Carbon Dioxide 20 mmol/L (22-30); Glucose 110 mg/dL (74-99); Lipase 66 U/L (23-300); Magnesium 1.2 mg/dL (1.6-2.3); Non-African American GFR(CKD) 75 (>60 ml/min/1.73 sqM); Sodium 140 mmol/L (137-145); Total Bilirubin 1.6 mg/dL (0.2-1.3); Total Protein 6.8 g/dL (6.3-8.2)
[2023-04-18 12:48] LABS: Glucose,Whole Blood 94 mg/dL (70-110)
[2023-04-18] MEDS: IBUPROFEN 600 MG TAB PO STA (13:17)
[2023-04-18] MEDS: MAGNESIUM SULFATE-D5W PMX 1 GM in DEXTROSE/WATER 1 100ML.BAG IVPB ONE (13:22)
[2023-04-18 14:18] LABS: Appearance,Urine Clear (Clear); Bilirubin,Urine Negative (Negative); Blood,Urine Negative (Negative); Color,Urine Light Yellow; Glucose,Urine (UA) 3+ (Negative); Ketones,Urine Negative (Negative); Leukocyte Esterase,Urine Negative (Negative); Nitrite,Urine Negative (Negative); Protein,Urine Trace (Negative); Specific Gravity,Urine 1.019 (1.001-1.035); Urobilinogen,Urine <2.0 mg/dL (<2.0)
[2023-04-18 15:40] VITALS: BP 111/66; PULSE 91; TEMP 98.8
== END 2023-04-18 15:16 | disposition home or self-care (01) ==
LOC: EC 10:48
DX: K52.9 Noninfective gastroenteritis and colitis, unspecified (principal); E11.43 Type 2 diabetes mellitus with diabetic autonomic (poly)neuropathy; K31.84 Gastroparesis; E11.40 Type 2 diabetes mellitus with diabetic neuropathy, unspecified; E11.22 Type 2 diabetes mellitus with diabetic chronic kidney disease; E11.319 Type 2 diabetes mellitus with unspecified diabetic retinopathy without macular edema; R00.0 Tachycardia, unspecified; I12.0 Hypertensive chronic kidney disease with stage 5 chronic kidney disease or end stage renal disease; N18.6 End stage renal disease; K21.9 Gastro-esophageal reflux disease without esophagitis; E78.5 Hyperlipidemia, unspecified; Z20.822 Contact with and (suspected) exposure to COVID-19; Z99.2 Dependence on renal dialysis; Z79.4 Long term (current) use of insulin; Z79.82 Long term (current) use of aspirin; Z79.899 Other long term (current) drug therapy; Z88.8 Allergy status to other drugs, medicaments and biological substances
CPT/HCPCS: 36415; 80053; 83690; 83735; 85025; 81003; 87636; 99284; 96365; 96375; 96361 ×2; J3475; J1790

== ENCOUNTER 2023-05-14 05:50 | Day surgery (SDC) | payer BC, MEDICARE ==
[2023-05-12 14:59] VITALS: BMI 16.7
[~2023-05-14 05:50] MED LIST changes: -LACTATED RINGERS 1,000 ML IV SCH; +LIDOCAINE 1% (10MG/ML) FOR IV START INTRADERMA PRN; -LIDOCAINE 1% 20 ML VIAL (10MG/ML) FOR IV START INTRADERMA PRN; -TETRACAINE 0.5% OPHTH (PF) DROPS 4 ML BTL OP ONE
[2023-05-14 06:47] LABS: Glucose,Whole Blood 142 mg/dL (70-110)
[2023-05-14] MEDS: LACTATED RINGERS 1,000 ML IV SCH (06:56)
[2023-05-14] MEDS ORDERED: LIDOCAINE 1% INJ 10MG/ML (20 ML MDV) ONE (07:05)
[2023-05-14] MEDS ORDERED: PROPOFOL 10 MG/ML 20 ML VIAL IV ONE (07:05)
[2023-05-14 07:16] VITALS: TEMP 97
[2023-05-14 07:54] VITALS: PULSE 74; RESP 16
[2023-05-14 07:59] LABS: Glucose,Whole Blood 143 mg/dL (70-110)
--- NOTE | 2023-05-14 08:03 | P.PCN ---
Date of Procedure: 05/14/23 Procedure(s) Performed: Brief history: Patient is a pleasant 37-year-old white malescheduled for an elective upper endoscopy as well as colonoscopy as a part of evaluation ofintermittent episodes of nausea vomiting and diarrhea for the last 3 months duration. He has these episodes of happens once or twice a week during which time he has 5-6 loose watery bowel movements daily. No bleeding. Procedure performed: Esophagogastroduodenoscopywith biopsy Colonoscopy with biopsy Preoperative diagnosis: intermittent episodes of nausea vomiting Chronic intermittent diarrhea Anesthesia: MAC Procedure: After informed consent was obtained from the patient was brought into the endoscopy unit and IV sedation was administered by anesthesia under continuous monitoring. Initially upper endoscopy was done. The Olympus GF 160 video endoscope was inserted inserted into the mouth and esophagus intubated without any difficulty and was gradually advanced into the stomach and duodenum and carefully examined. The bulb and second part of the duodenum appeared normal. multiple biopsies were done from the duodenum to evaluate for celiac disease. The scope was then withdrawn into the stomach adequately insufflated with air and upon careful examination the antrumand mild diffuse gastritis and small gastric polyps in the biopsy. Mucosa of the body, cardia and fundus appeared normal. The scope was then withdrawn into the esophagus. The GE junction was located at 40 cm to the incisors. It appeared regular with no erythema erosions or ulcerations. Rest of the esophagus appeared normal. Patient tolerated the procedure well. At this time the patient continued to remain sedation. Initial digital rectal examination was normal. Olympus CF 160 video colonoscope was then inserted into the rectum and gradually advanced to the cecum without any difficulty. Careful examination was performed as the scope was gradually being withdrawn. The prep was fair. The colon appeared redundant.. The cecum, ascending colon, transverse colon, descending colon, sigmoid colon and rectum appeared normal.and biopsies were done from ascending and descending colon to rule out microscopic/collagenous colitis Retroflexion was performed in the rectum and no lesions were noted. Patient tolerated the procedure well. Impression: 1.Upper endoscopy revealed mild antral gastritis and small gastric polyps and retained liquid in the stomach suggestive of diabetic gastroparesis 2.Colonoscopy was within normal limits with no evidence of colitis or colorectal neoplasia Recommendations: Findings of this examination were discussed with the patient as well ashis family. He was advised to follow with the biopsy results.follow up in office in 2 weeks. Recommend repeat colonoscopy in 10 years.
[2023-05-14] MEDS ORDERED: hydrALAZINE HCL 20 MG/ML 1 ML VIAL ONE (08:04)
[2023-05-14] MEDS: hydrALAZINE HCL 20 MG/ML 1 ML VIAL IVP ONE (08:09)
[2023-05-14 08:34] VITALS: BP 156/90
== END 2023-05-14 08:39 | disposition home or self-care (01) ==
LOC: ORWHC2ENDO 05:50
PROVIDERS: ATTEND Internal Medicine Gastroenterology
DX: K29.50 Unspecified chronic gastritis without bleeding (principal); K29.80 Duodenitis without bleeding; K31.7 Polyp of stomach and duodenum; K52.9 Noninfective gastroenteritis and colitis, unspecified; I10 Essential (primary) hypertension; E78.5 Hyperlipidemia, unspecified; Z79.899 Other long term (current) drug therapy
CPT/HCPCS: 88305; 88342; 45380; 43239; J0360; J2001; J2704

== ENCOUNTER → 2023-12-26 | Outpatient (CLI) | payer BC, MEDICARE ==
[2023-12-26 15:17] LABS: Basophils # (A) 0.07 X 10*3/uL (0.00-0.10); Basophils % (A) 0.9 %; Eosinophils # (A) 0.43 X 10*3/uL (0.04-0.35); Eosinophils % (A) 5.6 %; HCT 42.3 % (39.6-50.0); Lymphocytes # (A) 2.24 X 10*3/uL (0.90-5.00); Lymphocytes % (A) 29.2 %; MCH 28.1 pg (27.0-32.0); MCHC 33.1 g/dL (32.0-37.0); MCV 84.9 FL (80.0-97.0); Mean Platelet Volume 13.1 FL (9.5-12.2); Monocytes # (A) 0.56 X 10*3/uL (0.20-1.00); Monocytes % (A) 7.3 %; NRBC Per 100 WBC 0 X 10*3/uL (0.00-0.01); Neutrophils # (A) 4.36 X 10*3/uL (1.80-7.70); Neutrophils % (A) 56.7 %; Platelet Count 156 X 10*3/uL (140-440); RBC 4.98 X 10*6/uL (4.40-5.60); RDW 13.7 % (11.5-14.5); WBC 7.68 X 10*3/uL (4.50-10.00)
[2023-12-26 15:42] LABS: BUN/Creat Ratio 13.42 Ratio (12.00-20.00); Blood Urea Nitrogen 16.1 mg/dL (9.0-27.0); Carbon Dioxide 25.8 mmol/L (21.6-31.8); Chloride 105 mmol/L (96-109); Chol/HDL Ratio 1.92 Ratio; Glucose 120 mg/dL (70-110); LDL Cholesterol,Calculated 48.2 mg/dL (0.0-131.0); Phosphorus 4.5 mg/dL (2.4-5.1); Potassium 4.5 mmol/L (3.5-5.5); Sodium 144 mmol/L (135-145)
[2023-12-26 15:43] LABS: ALT 22 U/L (10-49); AST 19 U/L (14-35); Albumin 4.4 g/dL (3.8-4.9); Calcium 9.5 mg/dL (8.7-10.3)
== END | disposition home or self-care (01) ==
LOC: LABWHC1 06:59
PROVIDERS: ATTEND Internal Medicine Interventional Cardiology
DX: E78.2 Mixed hyperlipidemia (principal)
CPT/HCPCS: 36415; 80061; 80069; 84450; 84460; 85025

== ENCOUNTER → 2024-06-02 | Outpatient (CLI) | payer BC, MEDICARE ==
[2024-06-02 10:20] LABS: Basophils # (A) 0.03 X 10*3/uL (0.00-0.10); Basophils % (A) 0.4 %; Eosinophils # (A) 0.26 X 10*3/uL (0.04-0.35); Eosinophils % (A) 3.7 %; HCT 40.2 % (39.6-50.0); HGB 13.3 g/dL (13.0-17.0); Lymphocytes # (A) 1.83 X 10*3/uL (0.90-5.00); Lymphocytes % (A) 25.9 %; MCH 28.6 pg (27.0-32.0); MCHC 33.1 g/dL (32.0-37.0); MCV 86.5 FL (80.0-97.0); Mean Platelet Volume 13.5 FL (9.5-12.2); Monocytes # (A) 0.57 X 10*3/uL (0.20-1.00); Monocytes % (A) 8.1 %; NRBC Per 100 WBC 0 X 10*3/uL (0.00-0.01); Neutrophils # (A) 4.36 X 10*3/uL (1.80-7.70); Neutrophils % (A) 61.6 %; Platelet Count 130 X 10*3/uL (140-440); RBC 4.65 X 10*6/uL (4.40-5.60); RDW 13.5 % (11.5-14.5); WBC 7.07 X 10*3/uL (4.50-10.00)
[2024-06-02 10:51] LABS: % Iron Saturation 22.92 (15.00-50.00); Albumin 3.9 g/dL (3.8-4.9); BUN/Creat Ratio 12.45 Ratio (12.00-20.00); Blood Urea Nitrogen 13.7 mg/dL (9.0-27.0); Carbon Dioxide 28.2 mmol/L (21.6-31.8); Chloride 106 mmol/L (96-109); Ferritin 43.2 ng/mL (22.0-322.0); Glucose 171 mg/dL (70-110); Iron 69 UG/DL (65-175); Magnesium 1.6 mg/dL (1.5-2.4); Potassium 4.5 mmol/L (3.5-5.5); Sodium 143 mmol/L (135-145); Total Iron Binding Capacity 301 UG/DL (228-460); Uric Acid 4.6 mg/dL (3.7-8.7)
[2024-06-02 11:05] LABS: Microalbumin Creatinine Ratio <18 mg/g Cr (0-30); Urine Creatinine 68.2 mg/dL (39.0-259.0)
== END | disposition home or self-care (01) ==
LOC: LABWHC1 06:55
PROVIDERS: ATTEND Internal Medicine Nephrology
DX: Z94.0 Kidney transplant status (principal); Z94.83 Pancreas transplant status
CPT/HCPCS: 36415; 80048; 82040; 82043; 82306; 82570; 82728; 83540; 83550; 83735; 83970; 84550; 85025

== ENCOUNTER 2024-08-08 21:02 | Emergency (ER) | payer BC, MEDICARE ==
[2024-08-08 21:05] VITALS: BP 132/80; PULSE 89; RESP 16; TEMP 98.2
--- NOTE | 2024-08-08 21:43 | ED ---
Skin/Abscess/FB HPI - General Chief complaint: Skin/Abscess/Foreign Body Stated complaint: Toe pain Time Seen by Provider: 08/08/24 21:18 Source: patient, RN notes reviewed Mode of arrival: ambulatory Limitations: no limitations - History of Present Illness MD complaint: lesion, discoloration Onset/Timin -: days(s) Tetanus Up to Date: no Location: L foot Associated symptoms: denies other symptoms Treatments Prior to Arrival: bandages, OTC topical medication - Related Data Home Medications Medication Instructions Recorded Confirmed Omeprazole 20 mg PO BID 08/28/17 05/12/23 Aspirin EC [Ecotrin Low Dose] 81 mg PO DAILY 05/18/18 05/12/23 Atorvastatin [Lipitor] 40 mg PO HS 11/07/19 05/12/23 Tacrolimus [Envarsus Xr] 3 mg PO QAM 11/07/19 05/12/23 mycophenolate mofetiL [Cellcept] 500 mg PO BID 11/07/19 05/12/23 predniSONE 5 mg PO DAILY 11/07/19 05/12/23 Cholecalciferol [Vitamin D3 (25 50 mcg PO DAILY 03/05/23 05/12/23 Mcg = 1000 Iu)] Insulin Aspart (For Pump) [NovoLOG 0.01 unit SQ-PUMP CONTINUOUS 03/05/23 05/12/23 (For Pump)] Midodrine HCl [ProAmatine] 10 mg PO TID 03/05/23 05/12/23 calcitrioL 0.25 mcg PO WESA 03/05/23 05/12/23 Glucagon [Baqsimi] 1 spray NASAL DIRECTED PRN 04/18/23 05/12/23 Loratadine [Claritin] 10 mg PO DAILY 04/18/23 05/12/23 Ondansetron Odt [Zofran Odt] 8 mg PO TID PRN 04/18/23 05/12/23 Previous Rx's Medication Instructions Recorded Cephalexin [Keflex] 500 mg PO Q6HR 1 Days #28 cap 08/08/24 Doxycycline Hyclate 100 mg PO BID 1 Days #14 tab 08/08/24 Mupirocin 2% Oint [Bactroban 2% 1 applic NASAL BID #22 gm 08/08/24 Oint] Allergies Allergy/AdvReac Type Severity Reaction Status Date / Time metoclopramide [From Reglan] Allergy ITCHY Verified 08/08/24 21:05 FEELING " Review of Systems ROS Statement: Those systems with pertinent positive or pertinent negative responses have been documented in the HPI. ROS Other: All systems not noted in ROS Statement are negative. Past Medical History Past Medical History: Diabetes Mellitus, Eye Disorder, GERD/Reflux, Hyperlipidemia, Hypertension, Renal Disease Additional Past Medical History / Comment(s): past DKA, neuropathy bilateral f eet, diabetic nephropathy/ESRD with hemodialysis M/W/F pt planning establishing at [facility] for possible kidney transplant, diabetic retinopathy/bleeds bilaterally-pt legally blind, gastroparesis with botox treatment, esophagitis, hiatal hernia, gastrophoresis History of Any Multi-Drug Resistant Organisms: None Reported Past Surgical History: Hernia Repair Additional Past Surgical History / Comment(s): Vitrectomy right eye, 04/2017 bilateral laser eye surgery for retinal bleeds unsuccessful, eye injections, EGD, colonoscopy, dialysis cath placed rt upper chest on 12-03-17, graft rt forearm 10/06/18 for dialysis, L inguinal hernia repair, kidney transplant- left Past Anesthesia/Blood Transfusion Reactions: Postoperative Nausea & Vomiting (PONV) Additional Past Anesthesia/Blood Transfusion Reaction / Comment(s): clausterphobia, Pt has received multiple transfusions. Past Psychological History: Depression Smoking Status: Never smoker Past Alcohol Use History: Daily Past Drug Use History: None Reported - Past Family History Father Family Medical History: No Reported History Additional Family Medical History / Comment(s): Father is healthy Mother Family Medical History: No Reported History Additional Family Medical History / Comment(s): Mother is healthy. General Exam Limitations: no limitations General appearance: alert, in no apparent distress Head exam: Present: atraumatic, normocephalic, normal inspection Eye exam: Present: normal appearance, PERRL, EOMI. Absent: scleral icterus, conjunctival injection, periorbital swelling ENT exam: Present: normal exam, mucous membranes moist Neck exam: Present: normal inspection. Absent: tenderness, meningismus, lymphadenopathy Respiratory exam: Present: normal lung sounds bilaterally. Absent: respiratory distress, wheezes, rales, rhonchi, stridor Cardiovascular Exam: Present: regular rate, normal rhythm, normal heart sounds. Absent: systolic murmur, diastolic murmur, rubs, gallop, clicks GI/Abdominal exam: Present: soft, normal bowel sounds. Absent: distended, tenderness, guarding, rebound, rigid Extremities exam: Present: full ROM, normal capillary refill, other (Positive shallow, 2 cm open wound/exposed skin on lateral aspect of left fourth digit with surrounding erythema and edema. Patient denies significant tenderness due to neuropathy. No obvious discharge, red streaking, foreign body). Absent: tenderness, pedal edema, joint swelling, calf tenderness Back exam: Present: normal inspection Neurological exam: Present: alert, oriented X3, CN II-XII intact Psychiatric exam: Present: normal affect, normal mood Skin exam: Present: warm, dry, intact, normal color. Absent: rash Course Vital Signs 08/08/24 21:03 Temperature 98.2 F Pulse Rate 89 Respiratory 16 Rate Blood Pressure 132/80 O2 Sat by Pulse 99 Oximetry Medical Decision Making - Medical Decision Making Was pt. sent in by a medical professional or institution (, PA, MILK COLLECTOR, urgent care, hospital, or group home...) When possible be specific @ -[No] Did you speak to anyone other than the patient for history (EMS, parent, family, police, friend...)? What history was obtained from this source @ -[No] Did you review nursing and triage notes (agree or disagree)? Why? @ -[I reviewed and agree with nursing and triage notes] Were old charts reviewed (outside hosp., previous admission, EMS record, old EKG, old radiological studies, urgent care reports/EKG's, group home records)? Report findings @ -[No old charts were reviewed] Differential Diagnosis (chest pain, altered mental status, abdominal pain women, abdominal pain men, vaginal bleeding, weakness, fever, dyspnea, syncope, headache, dizziness, GI bleed, back pain, seizure, CVA, palpatations, mental health, musculoskeletal)? @ -Differential Musculoskeletal Muscular strain, contusion, ligament sprain, fracture, arthritis, septic arthritis, bursitis, cellulitis, muscle spasm, nerve compression, DVT, arterial occlusion, herpes zoster, electrolyte abnormality, tumor.... This is not meant to be in all inclusive list EKG interpreted by me (3pts min.). @ -Not done X-rays interpreted by me (1pt min.). @ -[None done] CT interpreted by me (1pt min.). @ -[None done] U/S interpreted by me (1pt. min.). @ -[None done] What testing was considered but not performed or refused? (CT, X-rays, U/S, labs)? Why? @ -[None] What meds were considered but not given or refused? Why? @ -[None] Did you discuss the management of the patient with other professionals (professionals i.e. , PA, MILK COLLECTOR, lab, RT, psych nurse, psychologist social, textiles and clothing teacher, teacher, forestry technical officer, binder caser)? Give summary @ -[No] Was smoking cessation discussed for >3mins.? @ -[No] Was critical care preformed (if so, how long)? @ -[No] Were there social determinants of health that impacted care today? How? (Homelessness, low income, unemployed, alcoholism, drug addiction, transportation, low edu. Level, literacy, decrease access to med. care, correction, rehab)? @ -[No] Was there de-escalation of care discussed even if they declined (Discuss DNR or withdrawal of care, Hospice)? DNR status @ -[No] What co-morbidities impacted this encounter? (DM, HTN, Smoking, COPD, CAD, Cancer, CVA, ARF, Chemo, Hep., AIDS, mental health diagnosis, sleep apnea, morbid obesity)? @ -DM Was patient admitted / discharged? Hospital course, mention meds given and route, prescriptions, significant lab abnormalities, going to OR and other pertinent info. @ -[hospital course] Undiagnosed new problem with uncertain prognosis? @ -[No] Drug Therapy requiring intensive monitoring for toxicity (Heparin, Nitro, Insulin, Cardizem)? @ -[No] Were any procedures done? @ -[No] Diagnosis/symptom? @ -Cellulitis Acute, or Chronic, or Acute on Chronic? @ -Acute Uncomplicated (without systemic symptoms) or Complicated (systemic symptoms)? @ -Uncomplicated Side effects of treatment? @ -[No] Exacerbation, Progression, or Severe Exacerbation? @ -[No] Poses a threat to life or bodily function? How? (Chest pain, [place], [place], pneumonia, PE, COPD, DKA, ARF, appy, cholecystitis, CVA, Diverticulitis, Homicidal, Suicidal, threat to staff... and all critical care pts) @ -[No] Disposition Clinical Impression: Cellulitis Disposition: HOME SELF-CARE Condition: Good Instructions (If sedation given, give patient instructions): Acute Wound Care (ED) Additional Instructions: Keep wound clean with antibacterial soap and water at least twice daily followed by application antibiotic ointment and dressing change. Prescriptions: Mupirocin 2% Oint [Bactroban 2% Oint] 1 applic NASAL BID #22 gm Doxycycline Hyclate 100 mg PO BID 1 Days #14 tab Cephalexin [Keflex] 500 mg PO Q6HR 1 Days #28 cap Is patient prescribed a controlled substance at d/c from ED?: No Referrals: Sahra Hurtado MD [Primary Care Provider] - 1-2 days Time of Disposition: 21:43
--- NOTE | 2024-08-08 21:49 | XR ---
EXAMINATION TYPE: XR foot complete LT DATE OF EXAM: 08/08/2024 9:44 PM COMPARISON: None. CLINICAL INDICATION: Male, 38 years old with history of Fourth digit inflammation/infection, history of DM, pain TECHNIQUE: Frontal, lateral, and oblique images of the foot are obtained. FINDINGS: There is no acute fracture/dislocation evident in the foot. The joint spaces in the foot appear within normal limits. The overlying soft tissue appears unremarkable. IMPRESSION: There is no acute fracture or dislocation in the foot. [facility], , 08/08/2024 9:47 PM
[2024-08-08] MEDS: CEPHALEXIN 500 MG CAP PO STA (21:52)
[2024-08-08] MEDS: DOXYCYCLINE 100 MG TABLET PO ONE (21:52)
[2024-08-08] MEDS: DIPH,PERTUS(ACELL)TETVAC-LF 0.5 ML VIAL IM ONE (21:53)
== END 2024-08-08 22:27 | disposition home or self-care (01) ==
LOC: EC 21:02
DX: L03.032 Cellulitis of left toe (principal); E11.22 Type 2 diabetes mellitus with diabetic chronic kidney disease; Z23 Encounter for immunization; Z88.8 Allergy status to other drugs, medicaments and biological substances
CPT/HCPCS: 90471; 90715; 99283

== ENCOUNTER → 2024-08-17 | Outpatient (CLI) | payer BC, MEDICARE | END | disposition home or self-care (01) | LOC: LABWHC1 12:37 | PROVIDERS: ATTEND Internal Medicine | DX: Z01.812 Encounter for preprocedural laboratory examination (principal) | CPT/HCPCS: 36415 ==

== ENCOUNTER → 2024-09-10 | Outpatient (CLI) | payer BC, MEDICARE ==
[2024-09-10 11:03] LABS: Bilirubin,Urine Negative (Negative); Blood,Urine Negative (Negative); Color,Urine Yellow (Yellow); Ketones,Urine Negative (Negative); Nitrite,Urine Negative (Negative); PH, Urine 5.5; Specific Gravity,Urine 1.019 (1.001-1.030); Urobilinogen,Urine 1.0 E.U./DL
[2024-09-10 11:09] LABS: Basophils # (A) 0.05 X 10*3/uL (0.00-0.10); Basophils % (A) 0.7 %; Eosinophils # (A) 0.20 X 10*3/uL (0.04-0.35); Eosinophils % (A) 2.9 %; HCT 45.2 % (39.6-50.0); HGB 14.5 g/dL (13.0-17.0); Immature Grans, Automated 0.30 %; Lymphocytes # (A) 2.39 X 10*3/uL (0.90-5.00); Lymphocytes % (A) 34.3 %; MCH 27.5 pg (27.0-32.0); MCHC 32.1 g/dL (32.0-37.0); MCV 85.8 FL (80.0-97.0); Monocytes # (A) 0.49 X 10*3/uL (0.20-1.00); Monocytes % (A) 7.0 %; NRBC Per 100 WBC 0 X 10*3/uL (0.00-0.01); Neutrophils # (A) 3.82 X 10*3/uL (1.80-7.70); Neutrophils % (A) 54.8 %; Platelet Count 153 X 10*3/uL (140-440); RBC 5.27 X 10*6/uL (4.40-5.60); RDW 13.0 % (11.5-14.5); WBC 6.97 X 10*3/uL (4.50-10.00)
[2024-09-10 11:41] LABS: Albumin 4.2 g/dL (3.8-4.9); Anion Gap 10.50 mmol/L (4.00-12.00); BUN/Creat Ratio 14.77 Ratio (12.00-20.00); Blood Urea Nitrogen 19.2 mg/dL (9.0-27.0); Calcium 9.1 mg/dL (8.7-10.3); Carbon Dioxide 24.5 mmol/L (21.6-31.8); Chloride 109 mmol/L (96-109); Ferritin 26.8 ng/mL (22.0-322.0); Glucose 73 mg/dL (70-110); Iron 33 UG/DL (65-175); Magnesium 1.6 mg/dL (1.5-2.4); Potassium 4.6 mmol/L (3.5-5.5); Sodium 144 mmol/L (135-145); Total Iron Binding Capacity 363 UG/DL (228-460); Uric Acid 6.8 mg/dL (3.7-8.7)
== END | disposition home or self-care (01) ==
LOC: LABWHC1 06:55
PROVIDERS: ATTEND Nurse Practitioner Family
DX: E55.9 Vitamin D deficiency, unspecified (principal); N25.81 Secondary hyperparathyroidism of renal origin; M10.9 Gout, unspecified; N39.0 Urinary tract infection, site not specified; D64.9 Anemia, unspecified; R80.9 Proteinuria, unspecified; Z94.83 Pancreas transplant status; Z94.0 Kidney transplant status
CPT/HCPCS: 36415; 80048; 80197; 81003; 82040; 82043; 82306; 82570; 82728; 83540; 83550; 83735; 83970; 84100; 84550; 85025